=== PATIENT | male | born 1950 | race Caucasian/White ===

== ENCOUNTER 2019-06-06 23:19 | Emergency (ER) | payer MEDICARE, SELFPAY ==
--- NOTE | ~2019-06-06 | CT_ITS ---
EXAMINATION: CT brain wo con INDICATION: Headache COMPARISON: 05/08/2017 TECHNIQUE: Standard unenhanced head CT. The dose-length product (DLP) was 681.00 mGy-cm. The mA was a djusted according to patient size. Iterative reconstruction technique was employed. FINDINGS: There is no acute intraparenchymal hemorrhage. No evidence of mass lesion. No evidence of a cute infarction. There is mild periventricular and subcortical hypodensity probably related to small vessel ischemic disease. There is mild prominence of the sulci and ventricles related to cerebral atr ophy. Intracranial calcified cerebral atherosclerosis is noted. There are no extra-axial collections. There is no mass effect or midline shift. The orbits and soft tissues are unremarkable. The visuali zed sinuses and mastoid air cells are well aerated. IMPRESSION: 1. No acute intracranial abnormality. 2. Age related findings. Reviewed, dictated and finalized at location A. VERY SALES WORKER
--- NOTE | ~2019-06-06 | XR_ITS ---
EXAMINATION: XR chest 2V DATE: 06/07/2019 00:37 INDICATION: Chest pain TECHNIQUE: Frontal and lateral views of the chest are obtained COMPARISON: None available FINDINGS: The lungs are free of acute opacities. There is no pleural effusion or pneumothorax. The he art size is normal. Median sternotomy wires and mediastinal surgical clips are seen, likely from prio r coronary artery bypass grafting. A coronary artery stent is noted. There are bridging osteophytes a t multiple levels in the spine, consistent with diffuse idiopathic skeletal hyperostosis (DISH). IMPRESSION: 1. No acute cardiopulmonary abnormality. Reviewed, dictated and finalized at location A. NDLER
[2019-06-06 23:38] VITALS: BP 186/86; PULSE 65; RESP 20; TEMP 36.6; O2SAT 97
--- NOTE | 2019-06-06 23:43 | ECG_ITS ---
Measurements Intervals [place] Rate: 59 P: -17 MI: 129 QRS: -15 QRSD: 102 T: 90 QT: 425 QTc: 424 Interpretive Statements SINUS BRADYCARDIA NONSPECIFIC ST & T-WAVE ABNORMALITY- LATERAL LEADS BASELINE WANDER- I, III BORDERLINE ECG Electronically Signed On 06-07-2019 8:02:35 HARDBOARD COATING MACHINE OPERATOR by Cristian Vo D.O.
--- NOTE | 2019-06-06 23:46 | ED.GENADULT ---
HPI - General Adult General Chief complaint: Headache Stated complaint: hypertension Time Seen by Provider: 06/06/19 23:30 Source: patient History of Present Illness HPI narrative: Santo is a 68-year-old male patient. He presents ambulatory to the emergency room with his . His main complaint is that his blood pressure is high. It has been in the 170-180 range systolic and about 80-85 diastolic. He has history of hypertension. He is on amlodipine 5 mg twice a day metoprolol succinate 50 mg twice a day valsartan 160 mg p.o. daily and tamsulosin 0 point mg daily. Santo history of heart disease. In 1992 he had 7 was Flick CABG done at [facility] in [place] . Since then he has had 7 coronary stents. His risk management specialist is Dr. Spears he saw Dr. Dempsey 2 weeks ago and at that time also his blood pressure was high. He was told to keep an eye on his pressure. Santo has history of carotid disease also. He is scheduled to have CTA of the neck tomorrow at [facility] in [place]. He is chronically short of breath, this is nothing new. He has no chest pain as such. He does say that he probably pulled his left pectoral muscle while was doing some work. He has tenderness to palpation on the lateral border of the left pectoral muscle no history of cough or fever he does have a headache. At this time he rates it only at about 3. It is a dull pressure type of pain. The hypertension has been going on for 2 weeks. Duration of headache is about 2 days. He has no nausea or vomiting. He has no diplopia. He has no blurred vision. his other medications include metformin 500 mg daily, finasteride 5 mg daily, colesevelam 625 mg tablets , 1875 mg twice a day, nitroglycerin 0.4 mg sublingual p.r.n., omeprazole 40 mg capsule delayed release, daily Onset (ago): week(s) ( See HPI narrative above) Location: head Radiation: non-radiation Severity: mild Quality: other ( pressure) Pain Consistency: intermittent Exacerbating factors: other ( spontaneously better) Associated symptoms: denies other symptoms Treatments prior to arrival: none Related Data Home Medications Medication Instructions Recorded Confirmed aspirin 81 mg tablet,delayed 81 mg PO DAILY 04/01/19 06/06/19 release colesevelam 625 mg tablet 1,875 mg PO BID 04/01/19 06/06/19 finasteride 5 mg tablet 5 mg PO DAILY 04/01/19 06/06/19 metformin 500 mg tablet 500 mg PO DAILY 04/01/19 06/06/19 metoprolol succinate 50 mg capsule 50 mg PO BID each 04/01/19 06/06/19 sprinkle, ext. release 24 hr nitroglycerin 0.4 mg sublingual 0.4 mg SUBLINGUAL Q5M PRN 04/01/19 06/07/19 tablet valsartan 160 mg tablet 160 mg PO DAILY 04/01/19 06/06/19 atorvastatin 80 mg PO HS 06/06/19 06/06/19 Allergies Allergy/AdvReac Type Severity Reaction Status Date / Time No Known Allergies Allergy Verified 04/01/19 08:33 Review of Systems Review of Systems: All systems reviewed & are unremarkable except as noted in HPI and below Constitutional: Constitutional: Reports as per HPI, Denies chills and Denies fever(s) Eyes: Eyes: Reports as per HPI, Reports no additional eye complaints, Denies change in vision and Denies photophobia ENT: Reports system reviewed and no additional complaints, except as documented, Denies dysphagia, Denies vertigo, Denies dizziness, Denies epistaxis, Denies nasal congestion and Denies sore throat Cardiovascular: Cardiovascular: Reports as per HPI and Reports no additional cardiovascular complaints Respiratory: Respiratory: Reports as per HPI, Denies cough and Reports dyspnea ( this is chronic) Gastrointestinal: Gastrointestinal: Reports as per HPI, Denies abdominal pain, Denies nausea and Denies vomiting Genitourinary: Genitourinary: Reports no additional male genitourinary complaints, Denies hematuria and Denies dysuria Musculoskeletal: Musculoskeletal: Reports as per HPI and Denies back pain Integumentary/Breasts: Skin/Breast: Reports system reviewed and no additional
[2019-06-06 23:52] VITALS: BP 181/97; PULSE 62; RESP 20; O2SAT 97
[2019-06-07] MEDS: LABETALOL HCL INJ 100 MG/20 ML VIAL 20 MG IV PUSH (00:20)
[2019-06-07 00:55] LABS: Basophils Absolute Auto 0.02 K/mm3 (0.00-0.10); Basophils Percent Auto 0.3 % (0.0-1.0); Eosinophils Absolute Auto 0.08 K/mm3 (0.02-0.50); Eosinophils Percent Auto 1.1 % (1.0-6.0); Hematocrit 40.6 % (37.0-46.0); Hemoglobin 13.5 g/dL (12.4-15.3); Immature Granulocyte Absolute 0.02 K/mm3 (0.00-0.00); Immature Granulocyte Percent A 0.3 % (0.0-0.0); Lymphocytes Absolute Auto 1.48 K/mm3 (1.10-4.50); Lymphocytes Percent Auto 19.8 % (18.0-42.0); Mean Corpuscular HGB Conc 33.3 g/dL (32.0-36.0); Mean Corpuscular Hemoglobin 28.4 pg (27.0-31.0); Mean Corpuscular Volume 85.3 fL (78.0-102.0); Mean Platelet Volume 10.1 fl (8.7-11.0); Monocytes Absolute Auto 0.55 K/mm3 (0.10-0.90); Monocytes Percent Auto 7.4 % (2.0-11.0); Neutrophils Absolute Auto 5.3 K/mm3 (1.7-7.2); Neutrophils Percent Auto 71.1 % (50.0-70.0); Platelet Count Result 163 K/mm3 (150-420); Red Blood Count 4.76 M/mm3 (4.70-6.10); Red Cell Distribution Width 12.6 % (11.6-14.4); White Blood Count 7.5 K/mm3 (4.8-10.8)
[2019-06-07 01:06] LABS: Add Urine Microscopic? YES; Appearance Urine Clear (Clear); Bilirubin Urine Negative (Negative); Blood Urine 1+ (Negative); Color Urine Yellow (Yellow); Glucose Urine UA Negative (Negative); Ketones Urine Negative (Negative); Leukocyte Esterase Ur Negative LEU/UL (Negative); Nitrate Urine Negative (Negative); Protein Urine Negative (Negative); Urobilinogen Urine 0.2 mg/dL (0.2-1.0); pH Urine 6.5 (5.0-8.0)
[2019-06-07 01:07] VITALS: BP 143/53; RESP 18; O2SAT 97
[2019-06-07 01:08] LABS: INR 1.1; Partial Thromboplastin Time 25.2 SEC (22.3-31.6); Prothrombin Time 11.2 Seconds (9.64-11.0)
[2019-06-07 01:15] LABS: BNP 76.1 pg/mL (0-100)
[2019-06-07 01:16] LABS: Squamous Epithelial Cell Urine None seen /hpf (Few); WBC Urine 0-3 /hpf (0-3)
[2019-06-07 01:17] LABS: Bacteria Urine None seen /hpf
[2019-06-07 01:18] LABS: Alanine Aminotransferase 43 U/L (16-63); Alkaline Phosphatase 85 U/L (46-116); Anion Gap 12.3 mmol/L (7-16); Aspartate Amino Transferase 20 U/L (15-37); Bilirubin,Total 0.5 mg/dL (0.00-1.00); Blood Urea Nitrogen 15 mg/dL (7-18); Carbon Dioxide 30 mmol/L (21-32); Chloride 104 mmol/L (98-108); Creatine Kinase 196 U/L (39-308); Estimated CRCL calculation 70 ml/min; Estimated Glomerular Filt Rate > 60; Glucose 175 mg/dL (70-99); Magnesium 1.5 mg/dL (1.8-2.4); Osmolality Calculated 298 mOsm/kg (285-295); Potassium 4.3 mmol/L (3.5-5.1); Sodium 142 mmol/L (136-145); Total Protein 7.1 g/dL (6.4-8.2)
[2019-06-07 01:20] LABS: Troponin I < 0.02 ng/mL (0.00-0.056)
[2019-06-07 01:21] LABS: Thyroid Stimulating Hormone 2.92 uIU/mL (0.36-3.74)
[2019-06-07] MEDS: MAGNESIUM SULF 2 GM/WATER 50ML 2 GM/50 ML BAG IVPB (01:36)
[2019-06-07 02:26] VITALS: BP 143/83; PULSE 65; RESP 20; O2SAT 98
== END 2019-06-07 02:40 | disposition home or self-care (01) ==
PROVIDERS: Emergency Provider Surgery; PCP Family Medicine
DX: I10 Essential (primary) hypertension (principal); E11.9 Type 2 diabetes mellitus without complications; I25.10 Atherosclerotic heart disease of native coronary artery without angina pectoris; E66.9 Obesity, unspecified; G47.30 Sleep apnea, unspecified; R06.02 Shortness of breath; Z95.1 Presence of aortocoronary bypass graft
CPT/HCPCS: 36415; 70450; 71046; 80053; 81001; 82550; 82553; 83735; 83880; 84443; 84484; 85025; 85610; 85730; 93005; 96365; 96375; 99283; 99284; J3475

== ENCOUNTER 2019-06-14 07:27 | Outpatient (CLI) | payer MEDICARE, SELFPAY ==
[2019-06-14 07:45] LABS: Basophils Absolute Auto 0.02 K/mm3 (0.00-0.10); Basophils Percent Auto 0.2 % (0.0-1.0); Eosinophils Absolute Auto 0.09 K/mm3 (0.02-0.50); Eosinophils Percent Auto 1.1 % (1.0-6.0); Hematocrit 42.2 % (37.0-46.0); Hemoglobin 14.4 g/dL (12.4-15.3); Immature Granulocyte Absolute 0.02 K/mm3 (0.00-0.00); Immature Granulocyte Percent A 0.2 % (0.0-0.0); Lymphocytes Absolute Auto 1.43 K/mm3 (1.10-4.50); Lymphocytes Percent Auto 17.5 % (18.0-42.0); Mean Corpuscular HGB Conc 34.1 g/dL (32.0-36.0); Mean Corpuscular Volume 85.1 fL (78.0-102.0); Mean Platelet Volume 9.8 fl (8.7-11.0); Monocytes Absolute Auto 0.53 K/mm3 (0.10-0.90); Monocytes Percent Auto 6.5 % (2.0-11.0); Neutrophils Absolute Auto 6.1 K/mm3 (1.7-7.2); Neutrophils Percent Auto 74.5 % (50.0-70.0); Platelet Count Result 189 K/mm3 (150-420); Red Blood Count 4.96 M/mm3 (4.70-6.10); Red Cell Distribution Width 12.7 % (11.6-14.4); White Blood Count 8.2 K/mm3 (4.8-10.8)
[2019-06-14 07:54] LABS: Creatinine Urine 106.96 mg/dL (40-278)
[2019-06-14 07:57] LABS: Hemoglobin A1C 7.5 % (<5.7)
[2019-06-14 08:33] LABS: MALB Creatinine Ratio 30.9 mg/g (0-30); Microalbumin Urine Random 33.1 mg/L
[2019-06-14 09:09] LABS: Alanine Aminotransferase 48 U/L (16-63); Albumin Level 4.1 g/dL (3.4-5.0); Alkaline Phosphatase 88 U/L (46-116); Anion Gap 14.3 mmol/L (7-16); Aspartate Amino Transferase 21 U/L (15-37); Bilirubin,Total 0.7 mg/dL (0.00-1.00); Blood Urea Nitrogen 13 mg/dL (7-18); Calcium 9.1 mg/dL (8.5-10.1); Carbon Dioxide 30 mmol/L (21-32); Chloride 105 mmol/L (98-108); Cholesterol 117 mg/dL (0-200); Estimated Glomerular Filt Rate > 60; Glucose 171 mg/dL (70-99); HDL Direct 35 mg/dL (40-60); LDL Cholesterol Calculated 51 mg/dL (<130); Osmolality Calculated 304 mOsm/kg (285-295); Potassium 4.3 mmol/L (3.5-5.1); Sodium 145 mmol/L (136-145); Total Protein 7.2 g/dL (6.4-8.2); Triglycerides 156 mg/dL (0-150)
[2019-06-14 09:13] LABS: Thyroid Stimulating Hormone Reflex 1.86 u/IU/mL (0.36-3.74)
[2019-06-18 19:46] LABS: Hepatitis C Signal to Cutoff 0.05 ratio (<1.00); Hepatitis C Virus Antibody Nonreactive (Nonreactive)
== END 2019-06-14 07:28 | disposition home or self-care (01) ==
PROVIDERS: PCP Family Medicine; Visit Provider Family Medicine
DX: E11.9 Type 2 diabetes mellitus without complications (principal); Z11.59 Encounter for screening for other viral diseases; I10 Essential (primary) hypertension; E11.59 Type 2 diabetes mellitus with other circulatory complications
CPT/HCPCS: 36415; 80053; 80061; 82043; 83036; 84443; 85025

== ENCOUNTER 2019-06-30 18:10 | Emergency (ER) | payer MEDICARE, SELFPAY ==
[2019-06-30 19:41] VITALS: BP 181/86; PULSE 70; RESP 16; TEMP 36.6; O2SAT 98
--- NOTE | 2019-06-30 19:47 | PC.NURSE ---
Pt has 1+ pitting edema to left lower extremity after removing his rishi hoes
--- NOTE | 2019-06-30 20:13 | ECG_ITS ---
Measurements Intervals [place] Rate: 59 P: 42 LA: 180 QRS: -16 QRSD: 89 T: 70 QT: 412 QTc: 408 Interpretive Statements SINUS BRADYCARDIA NONSPECIFIC T-WAVE ABNORMALITY- LATERAL LEADS BASELINE WANDER- V5 BORDERLINE ECG Electronically Signed On 07-01-2019 7:15:59 SWIMMING POOL SERVICER by Cristian Vo D.O.
--- NOTE | 2019-06-30 20:37 | PC.NURSE ---
clonidine held due to bp of 137/76 edp aware.
[2019-06-30 20:38] LABS: Hematocrit 35.2 % (37.0-46.0); Hemoglobin 11.8 g/dL (12.4-15.3); Mean Corpuscular HGB Conc 33.5 g/dL (32.0-36.0); Mean Corpuscular Hemoglobin 28.6 pg (27.0-31.0); Mean Corpuscular Volume 85.4 fL (78.0-102.0); Mean Platelet Volume 9.3 fl (8.7-11.0); Platelet Count Result 183 K/mm3 (150-420); Red Blood Count 4.12 M/mm3 (4.70-6.10); Red Cell Distribution Width 12.3 % (11.6-14.4); White Blood Count 8.2 K/mm3 (4.8-10.8)
[2019-06-30 20:54] LABS: Anion Gap 9.5 mmol/L (7-16); Blood Urea Nitrogen 12 mg/dL (7-18); Carbon Dioxide 31 mmol/L (21-32); Chloride 106 mmol/L (98-108); Estimated CRCL calculation 75 ml/min; Estimated Glomerular Filt Rate > 60; Glucose 195 mg/dL (70-99); Osmolality Calculated 298 mOsm/kg (285-295); Potassium 4.5 mmol/L (3.5-5.1); Sodium 142 mmol/L (136-145)
[2019-06-30 20:55] LABS: Alanine Aminotransferase 37 U/L (16-63); Albumin Level 3.5 g/dL (3.4-5.0); Alkaline Phosphatase 73 U/L (46-116); Aspartate Amino Transferase 21 U/L (15-37); Bilirubin,Total 0.4 mg/dL (0.00-1.00); Calcium 8.5 mg/dL (8.5-10.1); Total Protein 6.8 g/dL (6.4-8.2)
[2019-06-30 21:09] VITALS: BP 146/74; PULSE 60
--- NOTE | 2019-06-30 21:17 | ED.GENADULT ---
HPI - General Adult General Chief complaint: Extremity Injury, Lower Stated complaint: high blood pressure, swelling in L leg Time Seen by Provider: 06/30/19 18:15 Source: patient and family History of Present Illness HPI narrative: This is a 68-year-old male that presents with some elevated blood pressure initially systolic 180, with no chest pain no shortness of breath no abdominal pain no nausea vomiting no blurry vision, no headaches no diarrhea constipation. Recently had a carotid endarterectomy on the right and has been on blood pressure medicine and had a blood pressure of systolic of 180, with some trace peripheral edema with no calf pain or tenderness no redness in his lower extremities. Onset (ago): day(s) Related Data Home Medications Medication Instructions Recorded Confirmed aspirin 81 mg tablet,delayed 81 mg PO DAILY 04/01/19 06/10/19 release colesevelam 625 mg tablet 1,875 mg PO BID 04/01/19 06/10/19 finasteride 5 mg tablet 5 mg PO DAILY 04/01/19 06/10/19 nitroglycerin 0.4 mg sublingual 0.4 mg SUBLINGUAL Q5M PRN 04/01/19 06/10/19 tablet valsartan 160 mg tablet 160 mg PO DAILY 04/01/19 06/10/19 atorvastatin 80 mg PO HS 06/06/19 06/10/19 meloxicam 15 mg tablet 15 mg PO DAILY 06/10/19 06/10/19 Allergies Allergy/AdvReac Type Severity Reaction Status Date / Time No Known Allergies Allergy Verified 06/10/19 14:50 Review of Systems Review of Systems: All systems reviewed & are unremarkable except as noted in HPI and below PMFSH Past Medical History Medical History BPH (benign prostatic hyperplasia) CAD (coronary artery disease) Coronary artery disease involving coronary bypass graft of [place] heart Hypertension associated with diabetes Obesity Sleep apnea Type 2 diabetes mellitus, without long-term current use of insulin Surgical History Surgical History History of heart artery stent History of lumbar laminectomy Hx of coronary artery bypass graft Status post trigger finger release (~2017) Family History Family History Mother , mother at age 58 of [place] No problems noted. Father , father of coronary artery disease at age 55 No problems noted. Other Family history of coronary artery disease Social History Social History Smoking status: Never smoker Substance use: never Exam Const: General: no acute distress Nutritional Appearance: well nourished Orientation/consciousness: patient oriented x3 HENMT: Head: normal to inspection Eyes: Conjunctivae: conjunctivae normal Pupils: Equal, round and reactive pupils present Neck: Neck: normal visual inspection Chest: Chest palpation & inspection: normal inspection of the chest Resp: Effort & Inspection: normal respiratory effort Cardio: Rate: regular rate Rhythm: regular rhythm GI: GI Palp: Yes Soft to palpation : Testes: Testes normal Skin: General skin exam: normal color Rashes: no rashes Neuro: General: patient oriented x3, moves all extremities and no meningeal signs Extrem: General: normal to inspection and edema Other: Trace edema bilateral lower extremities Psych: Mental Status: mental status grossly normal Course REGISTERED NURSE TEACHER/PA Physician Supervision repeat blood pressure was 146 over 80, Vital Signs Vital signs: Vital Signs Temperature 36.6 C 06/30/19 19:41 Pulse Rate 70 06/30/19 19:41 Respiratory Rate 16 06/30/19 19:41 Blood Pressure 181/86 H 06/30/19 19:41 Pulse Oximetry 98 06/30/19 19:41 Temperature 36.6 C 06/30/19 19:41 Pulse Rate 60 06/30/19 21:09 Respiratory Rate 16 06/30/19 19:41 Blood Pressure 146/74 H 06/30/19 21:09 Pulse Oximetry 98 06/30/19 19:41 Medical Decision Making Vital Signs Vital Signs:
[2019-06-30 21:30] VITALS: RESP 16
== END 2019-06-30 21:30 | disposition home or self-care (01) ==
PROVIDERS: Emergency Provider Emergency Medicine; PCP Family Medicine
DX: I10 Essential (primary) hypertension (principal); Z95.1 Presence of aortocoronary bypass graft; I25.10 Atherosclerotic heart disease of native coronary artery without angina pectoris; E11.9 Type 2 diabetes mellitus without complications; G47.30 Sleep apnea, unspecified
CPT/HCPCS: 36415; 80053; 85027; 93005; 99282; 99283

== ENCOUNTER 2019-07-15 14:19 | Emergency (ER) | payer MEDICARE, SELFPAY ==
--- NOTE | ~2019-07-15 | CT_ITS ---
EXAMINATION: CT soft tissue neck wo con EXAM DATE: 07/15/2019 15:10 INDICATION: Trouble swallowing. Dysphagia since carotid surgery 3 weeks ago, worsening symptoms in la st 3 days. Prostate cancer. TECHNIQUE: Spiral CT of the neck was performed without contrast. Axial, coronal and sagittal images were reviewed. The dose-length product (DLP) for this examination was 638.12 mGy-cm. The exposure was tailored according to patient size (auto mA exposure control), and iterative reconstruction (ASIR ) was used as additional dose reduction technique. There is no prior study for comparison. FINDINGS: There are surgical changes, some fat stranding from relatively recent right-sided endartere ctomy, within expected appearance for history as above. Mildly enlarged right thyroid lobe, may have several nodules. Prevertebral soft tissue is normal in thickness, no focal abscess or fluid collectio n. Epiglottis and glottis are unremarkable. The submandibular and parotid glands are symmetric. Th ere is no cervical lymphadenopathy. There are no masses identified. The superior mediastinum is u nremarkable. The airway is unremarkable. Parapharyngeal and pre-glottic fat planes are preserved. Limited evaluation of cervical vessels on this noncontrast study. Visualized sinuses and mastoid air cells are well aerated. Sternotomy wires. There is cervical spondylosis. IMPRESSION: 1. Surgical changes from endarterectomy. 2. Mildly enlarged right thyroid lobe with nodules. Reviewed, dictated and finalized at location A. NICAL ENGINEER
[2019-07-15 14:33] VITALS: BP 153/77; PULSE 75; RESP 14; TEMP 37; O2SAT 98
--- NOTE | 2019-07-15 15:30 | ED.GENADULT ---
HPI - General Adult General Chief complaint: Unspecified Stated complaint: having trouble swollowing Source: patient Mode of arrival: ambulatory Limitations: no limitations History of Present Illness HPI narrative: This is a 68-year-old male that presents with difficulty swallowing pills recently had a endarterectomy approximately 3 weeks ago with status post surgical evaluation by his vascular doctor and had been doing very well. According to patient over last 4 days has been having increased swallowing difficulties with pills called his vascular surgeon which prompted him to come to the emergency department for further evaluation. Currently the patient appears stable with no difficulty breathing has a good swallow mechanism although he feels things are getting stuck in his throat is specially pills. There is no audible wheezing carotids auscultated and good pounding carotid pulses. Others no neck pain there is no neck stiffness has good range of motion and with no hematomas are neck masses visualized are auscultated or palpated. Onset (ago): day(s) Location: head and mouth Radiation: non-radiation Severity: mild Related Data Home Medications Medication Instructions Recorded Confirmed aspirin 81 mg tablet,delayed 81 mg PO DAILY 04/01/19 07/15/19 release colesevelam 625 mg tablet 1,875 mg PO BID 04/01/19 07/15/19 finasteride 5 mg tablet 5 mg PO DAILY 04/01/19 07/15/19 nitroglycerin 0.4 mg sublingual 0.4 mg SUBLINGUAL Q5M PRN 04/01/19 07/15/19 tablet valsartan 160 mg tablet 160 mg PO DAILY 04/01/19 07/15/19 atorvastatin 80 mg PO HS 06/06/19 07/15/19 clonidine HCl 0.1 mg PO BID 06/30/19 07/15/19 metformin 500 mg PO BID 06/30/19 07/15/19 psyllium husk [Metamucil] 2 tsp PO DAILY 06/30/19 07/15/19 Allergies Allergy/AdvReac Type Severity Reaction Status Date / Time No Known Allergies Allergy Verified 07/15/19 10:03 Review of Systems Review of Systems: All systems reviewed & are unremarkable except as noted in HPI and below PMFSH Past Medical History Medical History BPH (benign prostatic hyperplasia) CAD (coronary artery disease) Coronary artery disease involving coronary bypass graft of [place] heart Hypertension associated with diabetes Obesity Sleep apnea Type 2 diabetes mellitus, without long-term current use of insulin Surgical History Surgical History History of heart artery stent History of lumbar laminectomy Hx of coronary artery bypass graft Status post trigger finger release (~2018) Family History Family History Mother , mother at age 58 of [place] No problems noted. Father , father of coronary artery disease at age 55 No problems noted. Other Family history of coronary artery disease Social History Social History Smoking status: Never smoker Substance use: never Exam Const: General: no acute distress and alert HENMT: Head: normal to inspection Eyes: Conjunctivae: conjunctivae normal Pupils: Equal, round and reactive pupils present Neck: Neck: normal visual inspection, no lymphadenopathy and no meningeal signs Chest: Chest palpation & inspection: normal inspection of the chest and abnormal inspection of the chest Resp: Effort & Inspection: normal respiratory effort Auscultation: clear to auscultation bilaterally Cardio: Rate: regular rate Rhythm: regular rhythm GI: GI Palp: Yes Soft to palpation : Testes: Testes normal Back/Spine/Pelvis: Back: no CVA tenderness Skin: General skin exam: normal color Rashes: no rashes Neuro: General: patient oriented x3, moves all extremities and no meningeal signs Speech: normal speech Extrem: General: normal to inspection Psych: Mental Status: mental status grossly no
[2019-07-15 15:35] VITALS: RESP 15; O2SAT 98
== END 2019-07-15 15:40 | disposition home or self-care (01) ==
PROVIDERS: Emergency Provider Emergency Medicine; PCP Family Medicine
DX: R13.10 Dysphagia, unspecified (principal); I25.10 Atherosclerotic heart disease of native coronary artery without angina pectoris; I10 Essential (primary) hypertension; E11.9 Type 2 diabetes mellitus without complications; G47.30 Sleep apnea, unspecified
CPT/HCPCS: 70490; 99282; 99284

== ENCOUNTER 2019-07-18 14:35 | Outpatient (CLI) | payer MEDICARE, SELFPAY ==
[2019-07-18 17:24] LABS: Thyroid Stimulating Hormone 0.68 uIU/mL (0.36-3.74)
== END 2019-07-18 14:36 | disposition home or self-care (01) ==
LOC: CHSLAB 14:36
PROVIDERS: PCP Family Medicine; Visit Provider Nurse Practitioner Family
DX: E04.1 Nontoxic single thyroid nodule (principal)
CPT/HCPCS: 36415; 84443

== ENCOUNTER 2019-07-20 10:00 | Outpatient (CLI) | payer MEDICARE, SELFPAY ==
--- NOTE | ~2019-07-20 | US_ITS ---
EXAMINATION: US thyroid DATE: 07/20/2019 12:07 INDICATION: Nontoxic single thyroid nodule. TECHNIQUE: Multiple ultrasound images of the thyroid were obtained. COMPARISON: Neck CT 07/15/2019 FINDINGS: The right thyroid lobe measures 6.2 x 2.0 x 2.9 cm. The left thyroid lobe measures 5.7 x 1.6 x 2.3 c m. There are multiple nodules in the thyroid. In the right thyroid lobe, there is a 15 mm solid, hyp oechoic, ezmqu-xapt-ixeg nodule with lobulated margin without echogenic foci (TR4). In the right thyr oid lobe, there is a 17 mm solid, hyperechoic, usnfte-qour-ashw nodule with ill-defined margin withou t echogenic foci (TR4). In the right thyroid lobe, there is a 14 mm solid, hypoechoic, rfpql-uhbt-jsi l nodule with smooth margin without echogenic foci (TR4). In the left thyroid lobe, there is a 2.4 cm solid, hypoechoic, zmmlh-catl-zbkh nodule with ill-defined margin without echogenic foci (TR4). IMPRESSION: 1. Multinodular goiter. Ultrasound-guided fine-needle aspiration of the 2 largest nodules is recommen ded. Reviewed, dictated and finalized at location A. IMPRESSION: 1. Multinodular goiter. Ultrasound-guided fine-needle aspiration of the [address] nodules is recommended.
== END 2019-07-20 10:01 | disposition home or self-care (01) ==
LOC: CHSIMG 10:01
PROVIDERS: PCP Family Medicine; Visit Provider Nurse Practitioner Family
DX: E04.1 Nontoxic single thyroid nodule (principal)
CPT/HCPCS: 76536

== ENCOUNTER 2019-07-25 09:34 | Outpatient (CLI) | payer MEDICARE, SELFPAY ==
--- NOTE | ~2019-07-25 | XR_ITS ---
EXAMINATION: XR barium swallow modified EXAM DATE: 07/25/2019 10:24 INDICATION: Dysphagia. TECHNIQUE: Modified barium esophagram was performed by myself to administered fluoroscopy, in conjun ction with speech pathologist who administered barium in varying consistencies as per speech patholog ist documentation. This was recorded on tape. The DAP for this procedure was 1.5 Gycm2. FINDINGS: Oral stage: Adequate function. Pharyngeal phase: Sinus residual, bone osteophytes. Laryngeal penetration: Large. Aspiration: Copious. Laryngeal sensitivity: Present. IMPRESSION: Aspiration demonstrated; Please refer to speech pathologist findings and specific feedi ng recommendations. Reviewed, dictated and finalized at location A. IMPRESSION: Aspiration demonstrated; Please refer to speech pathologist findi ngs and specific feeding recommendations.
--- NOTE | 2019-07-26 10:02 | STOPEVAL ---
MODIFIED BARIUM SWALLOW EVALUATION: Thank you for referring this patient to [facility]. Attending Provider: Cabrera Aguilar MD Referring Provider: JARRELL Outpatient Evaluation Start: 07/26/19 09:11 Freq: Status: Active Protocol: Document 07/25/19 09:30 BECHERERT (Rec: 07/26/19 10:02 BECHERERT [email or web address]) Therapy Assessment Status Assessment Status Assessment Status Evaluation Outpatient Past Medical History Cardiovascular History Hx Angina Yes Hx Cardiac Catheterization Yes Hx Cardiac Surgery Yes Hx Chest Pain Yes Hx Coronary Artery Bypass Graft Yes Hx Coronary Stent Yes Hx Hypercholesterolemia Yes Hx Hypertension Yes Hx Other Cardiac Disorders Yes: right carotid artery surgery w/ complications Gastrointestinal History Hx Gastroesophageal Reflux Disease Yes Endocrine History Hx Diabetes Yes Evaluation Information Problem Diagnosis dysphagia Onset after carotid endartectomy Additional Evaluation Detail Pt stated that he was informed that there were complications during his endarterectomy surgery. Previous Treatments Previous Treatments For This Problem pt briefly mentioned that he had thickened water at the hospital after sx Pain Assessment Timing of Pain Assessment Timing of Pain Assessment Assessment Self Report Self Report Pain Level 0 Pain Scale Pain Scale Used Numeric (1 - 10) Pain Score Pain Score 0: Self Report Modified Barium Swallow Evaluation Recent Swallowing History Reports Dysphagia Yes Onset of Dysphagia started after carotid endartectomy History of Dysphagia No Other Factors Impacting Dysphagia Head/Neck Surgery History of Pneumonia No Reported Difficult Consistencies Thin Liquids,Solids Intake Method Prior to Swallow Oral Evaluation Diet Prior to Swallow Evaluation Clear Liquids Liquid Consistency Prior to Swallow Thin (0) Evaluation Consistency Mildly Thick 5 mL Method of Presentation Spoon Oral Preparatory Symptoms None Oral Phase Symptoms None Pharyngeal Phase Symptoms Bony Protuberance,Laryngeal Penetration,Reduced Laryngeal Elevation,Reduced Lingual Pressure,Residue in [place] ,Residue/Pyriform Sinus Pharyngeal Phase Comments Material entered airway and
== END 2019-07-25 09:35 | disposition home or self-care (01) ==
PROVIDERS: PCP Family Medicine; Visit Provider Otolaryngology
DX: R13.10 Dysphagia, unspecified (principal)
CPT/HCPCS: 92611

== ENCOUNTER 2019-07-26 11:07 | Emergency (ER) | payer MEDICARE, SELFPAY ==
--- NOTE | ~2019-07-26 | XR_ITS ---
EXAMINATION: XR chest 2V DATE: 07/26/2019 11:57 INDICATION: 5 weeks of dysphagia. TECHNIQUE: frontal and lateral views of the chest were obtained. COMPARISON: Chest radiograph dated 06/07/2019 FINDINGS: The lungs remain clear with no focal airspace opacities, pulmonary edema, pleural effusion or pneumot horax. The cardiomediastinal silhouette is normal. Median sternotomy wires and mediastinal surgical c lips are seen, likely from prior coronary artery bypass grafting. Right coronary artery stenting. The re are bridging osteophytes at multiple levels in the spine, consistent with diffuse idiopathic skele ashley hyperostosis (DISH). IMPRESSION: 1. No acute cardiopulmonary disease. Reviewed, dictated and finalized at location A.
--- NOTE | ~2019-07-26 | CT_ITS ---
EXAMINATION: CTA chest PE protocol DATE: 07/26/2019 13:09 INDICATION: Dyspnea. Positive d-dimer. Carotid surgery 5 weeks ago. TECHNIQUE: Computed tomography angiography (CTA) of the chest was performed with 100 mL Omnipaque-350 intravenous contrast timed to evaluate the pulmonary arteries. Coronal maximum intensity projection 3D-reconstructions were created by the technologist. Automated exposure control and iterative reconst ruction technique were employed. Exam dose: 657.77 mGy-cm total exam DLP. COMPARISON: 07/25/2021 view chest FINDINGS: The examination is diagnostically satisfactory with very good opacification of the pulmonar y arteries, with demonstration of bilateral saddle pulmonary emboli, with emboli extending into the u pper, middle and lower lobes bilaterally. No thoracic aortic aneurysm or dissection. Normal heart size. Status post sternotomy/probable coronary artery bypass graft surgery. No pericardial or pleural effusion. Hypoattenuating lesions of the thyroid gland are suggested, primarily on the right. No hilar or mediastinal mass lesion or lymphadenopathy is detected. Calcified left lower lobe pulmona ry granuloma consistent with old pulmonary granulomatous disease. No pulmonary infiltrate or consolid ation Small sliding hiatal hernia. Normal morphology of the adrenal glands. Calcified splenic granulomas consistent with old granulomato us disease. Suggestion of one or more pinpoint small dependent gallstones. No gallbladder wall thickening or gayla cholecystic stranding or fluid. No bile duct or pancreatic duct dilatation. No pancreatic mass lesion or calcification is evident. Diffuse idiopathic skeletal hyperostosis of cervical, thoracic and lumbar spine. IMPRESSION: Bilateral pulmonary saddle emboli Dr. Melara telephoned the report and bilateral saddle emboli on 07/26/2019 At 1314 hours to [facility] Emergency Room Physician Dr. Yeh. Reviewed, dictated and finalized at Location A. Reviewed, dictated and finalized at location B. IMPRESSION: Bilateral pulmonary saddle emboli Dr. Melara telephoned the report and bilateral saddle emboli on 07/26/2019 At 1314 hours to [facility] Emergency Room Physician Dr. Yeh.
--- NOTE | 2019-07-26 11:29 | ECG_ITS ---
Measurements Intervals [place] Rate: 67 P: 70 VA: 162 QRS: 22 QRSD: 93 T: 76 QT: 419 QTc: 444 Interpretive Statements SINUS RHYTHM WITH SINUS ARRHYTHMIA ATRIAL PREMATURE COMPLEX DELAYED PRECORDIAL R/S TRANSITION BORDERLINE ECG Electronically Signed On 07-26-2019 12:05:11 CDT by Cristian Vo D.O.
[2019-07-26 11:32] VITALS: BP 163/80; PULSE 76; RESP 17; TEMP 36.7; O2SAT 98
[2019-07-26 11:59] LABS: Basophils Absolute Auto 0.01 K/mm3 (0.00-0.10); Basophils Percent Auto 0.1 % (0.0-1.0); Eosinophils Absolute Auto 0.01 K/mm3 (0.02-0.50); Eosinophils Percent Auto 0.1 % (1.0-6.0); Hematocrit 40.3 % (37.0-46.0); Hemoglobin 13.5 g/dL (12.4-15.3); Immature Granulocyte Absolute 0.02 K/mm3 (0.00-0.00); Immature Granulocyte Percent A 0.3 % (0.0-0.0); Lymphocytes Absolute Auto 0.64 K/mm3 (1.10-4.50); Lymphocytes Percent Auto 8.7 % (18.0-42.0); Mean Corpuscular HGB Conc 33.5 g/dL (32.0-36.0); Mean Corpuscular Hemoglobin 28.4 pg (27.0-31.0); Mean Corpuscular Volume 84.8 fL (78.0-102.0); Mean Platelet Volume 10.1 fl (8.7-11.0); Monocytes Absolute Auto 0.58 K/mm3 (0.10-0.90); Monocytes Percent Auto 7.9 % (2.0-11.0); Neutrophils Absolute Auto 6.1 K/mm3 (1.7-7.2); Neutrophils Percent Auto 82.9 % (50.0-70.0); Platelet Count Result 161 K/mm3 (150-420); Red Blood Count 4.75 M/mm3 (4.70-6.10); Red Cell Distribution Width 13.2 % (11.6-14.4); White Blood Count 7.4 K/mm3 (4.8-10.8)
[2019-07-26 12:09] LABS: Alanine Aminotransferase 31 U/L (16-63); Albumin Level 3.8 g/dL (3.4-5.0); Alkaline Phosphatase 95 U/L (46-116); Anion Gap 11.3 mmol/L (7-16); Aspartate Amino Transferase 15 U/L (15-37); Bilirubin,Total 0.8 mg/dL (0.00-1.00); Blood Urea Nitrogen 8 mg/dL (7-18); Calcium 8.7 mg/dL (8.5-10.1); Carbon Dioxide 29 mmol/L (21-32); Chloride 104 mmol/L (98-108); Estimated Glomerular Filt Rate > 60; Glucose 172 mg/dL (70-99); Lactic Acid 1.9 mmol/L (0.4-2.0); Osmolality Calculated 294 mOsm/kg (285-295); Potassium 3.3 mmol/L (3.5-5.1); Sodium 141 mmol/L (136-145); Total Protein 6.8 g/dL (6.4-8.2); Troponin I < 0.02 ng/mL (0.00-0.056)
[2019-07-26 12:10] LABS: CRP 0.3 mg/dL (0.0-0.9)
[2019-07-26 12:12] LABS: BNP 84.5 pg/mL (0-100)
[2019-07-26 12:23] LABS: INR 1.1; Partial Thromboplastin Time 24.5 SEC (22.3-31.6); Prothrombin Time 11.8 Seconds (9.64-11.0)
[2019-07-26 12:26] LABS: D Dimer 10.73 mg/L (0.19-0.50)
[2019-07-26 12:50] VITALS: BP 135/74; PULSE 64; O2SAT 99
--- NOTE | 2019-07-26 12:56 | ED.SOB ---
HPI - SOB/Dyspnea General Chief Complaint: Upper Respiratory Infection Stated Complaint: Trouble breathing Time Seen by Provider: 07/26/19 11:15 Source: patient and family Mode of arrival: ambulatory Limitations: no limitations History of Present Illness HPI Narrative: 68-year-old man comes in today complaining of several days of shortness of breath is progressively getting worse. He states that he has recently been having difficulty swallowing foods, liquids and medications, all of which trigger cough, problem which she has had more or less since had right carotid surgery 1 month ago. He denies fever, nausea, vomiting, cold symptoms, chest pain, hemoptysis. He has no personal or family history of venous thrombosis. a barium swallow done yesterday showed a large amount of pharyngeal penetration and copious aspiration. MD elicited complaint: shortness of breath Onset (ago): day(s) (3) Context: choking/aspiration Timing: constant Severity: moderate Exacerbating factors: nothing Relieving factors: nothing Treatment prior to arrival: none Related Data Home oxygen amount: none Home Medications Medication Instructions Recorded Confirmed aspirin 81 mg tablet,delayed 81 mg PO DAILY 04/01/19 07/26/19 release finasteride 5 mg tablet 5 mg PO DAILY 04/01/19 07/26/19 nitroglycerin 0.4 mg sublingual 0.4 mg SUBLINGUAL Q5M PRN 04/01/19 07/26/19 tablet valsartan 160 mg tablet 160 mg PO DAILY 04/01/19 07/26/19 atorvastatin 80 mg PO HS 06/06/19 07/26/19 metformin 500 mg PO BID 06/30/19 07/26/19 psyllium husk [Metamucil] 2 tsp PO DAILY 06/30/19 07/26/19 clonidine HCl 0.1 mg tablet 0.1 mg PO DAILY tablet 07/21/19 07/26/19 colesevelam 625 mg tablet 1,875 mg PO BID 07/21/19 07/26/19 Allergies Allergy/AdvReac Type Severity Reaction Status Date / Time No Known Allergies Allergy Verified 07/18/19 13:48 Review of Systems Constitutional: Constitutional: Denies chills, Denies fever(s) and Denies weakness Eyes: Eyes: Denies change in vision and Denies photophobia ENT: Reports as per HPI, Denies dysphagia, Denies nasal congestion and Denies sore throat Cardiovascular: Cardiovascular: Denies chest pain and Denies radiating jaw, neck or arm pain Respiratory: Respiratory: Reports as per HPI, Reports cough (after ingestion) and Reports dyspnea Gastrointestinal: Gastrointestinal: Denies abdominal pain, Denies nausea and Denies vomiting Genitourinary: Genitourinary: Denies hematuria, Denies dysuria and Denies urinary frequency Musculoskeletal: Musculoskeletal: Denies arthralgias, Denies joint swelling and Denies muscle cramps Integumentary/Breasts: Skin/Breast: Denies pruritus, Denies erythema and Denies rash Neurologic: Denies vertigo, Denies dizziness and Denies syncope Psychiatric: Psychiatric: Denies anxiety and Denies depression Endocrine: Endocrine: Denies polydipsia and Denies polyuria Hematologic/Lymphatic: Hematologic/Lymphatic: Denies easy bleeding and Denies easy bruising Allergic/Immunologic: Allergic/Immunologic: Denies lip swelling and Denies wheezing PMFSH Past Medical History Medical History (Updated 07/26/19 @ 15:25 by Justin Yeh MD) BPH (benign prostatic hyperplasia) CAD (coronary artery disease) Coronary artery disease involving coronary bypass graft of [place] heart Hypertension associated with diabetes Obesity Sleep apnea Type 2 diabetes mellitus, without long-term current use of insulin Surgical History Surgical History (Updated 07/21/19 @ 10:58 by Mariel Dubois [facility]) H/O carotid endarterectomy 06/2019 History of heart artery stent 1 stent: 03/2005 1 stent: 02/2008 3 stents: 02/2009 1 stent: 12/2013 1 stent: 09/2014 History of lumbar laminectomy 03/2016 Hx of coronary artery bypass graft Status post trigger finger release (~2017) Social History Social History (Updated 07/18/19 @ 13:51 by Betty Ma MA) Smoking status: Never smoker Alcohol intake: never Substa
--- NOTE | 2019-07-26 13:19 | PC.NURSE ---
CALL PLACED TO [facility] FOR DR STACY LARA
--- NOTE | 2019-07-26 13:56 | PC.NURSE ---
DR LARA CALLS BACK AND STATES PATIENT HAS BEEN DISCHARGED FROM THEIR SERVICE. CALL PLACED TO [facility] FOR [facility]OSPITALIST ADMISSION
[2019-07-26 13:59] VITALS: BP 159/73; PULSE 69; O2SAT 97
[2019-07-26] MEDS: SODIUM CHLORIDE 0.9% IV 500 ML 999 ML IV CONT (14:44)
[2019-07-26] MEDS: HEPARIN SODIUM 5,000 UNITS/ML VIAL 6800 UNITS IV PUSH (15:20)
[2019-07-26] MEDS: HEPARIN SOD/D5W 100 UNITS/ML 25,000 UNITS/250 ML BAG 15 UNITS (15:21)
--- NOTE | 2019-07-26 15:22 | PC.NURSE ---
HEPARIN INFUSION - DOSE VERIFIED WITH DR LION - 6,800 UNITS BOLUS, 1,500 UNITS PER HOUR UNABLE TO SCAN APPROPRIATE DOSE IN JUL. PT IS AGREEABLE WITH TREATMENT PLAN, AWAITING ROOM ASSIGNMENT AT [facility]
--- NOTE | 2019-07-26 15:35 | PC.NURSE ---
DEXTROSE 5/0.45 NS STARTED AND INFUSING 120 ML/HR RIGHT AC- UNABLE TO SCAN AND DOCUMENT IN MAR.
[2019-07-26 15:39] VITALS: BP 154/76; PULSE 64; O2SAT 98
[2019-07-26 15:47] VITALS: PULSE 68; O2SAT 99
[2019-07-26 16:45] VITALS: BP 153/80; O2SAT 99
== END 2019-07-26 16:45 | disposition short-term general hospital (02) ==
PROVIDERS: Emergency Provider Emergency Medicine; PCP Family Medicine
DX: R10.13 Epigastric pain (principal); I26.92 Saddle embolus of pulmonary artery without acute cor pulmonale; I25.10 Atherosclerotic heart disease of native coronary artery without angina pectoris; I10 Essential (primary) hypertension; E11.9 Type 2 diabetes mellitus without complications
CPT/HCPCS: 36415; 71046; 71275; 80053; 83605; 83880; 84484; 85025; 85380; 85610; 85730; 86140; 87040; 93005; 96361; 96365; 99285; J1644; J7040; Q9965

== ENCOUNTER 2019-10-10 08:25 | Outpatient (RCR) | payer MEDICARE, SELFPAY ==
--- NOTE | 2019-10-10 09:50 | STOPEVAL ---
OUTPTIENT Darenk you for referring Santo Miller to [facility]. Please review, sign, date and return this plan of care GELA. I agree with and certify that the following plan of care is medically necessary. Referring Physician Date Admitting Provider: Attending Provider: Giuseppe Kulkarni MD Referring Provider: JARRELL Outpatient Evaluation Start: 10/10/19 08:31 Freq: Status: Active Protocol: Document 10/10/19 08:56 BECHERERT (Rec: 10/10/19 09:42 BECHERERT [id number]) Therapy Assessment Status Assessment Status Assessment Status Evaluation Outpatient Past Medical History Past Medical History Source of Past Medical History Patient Neurological History Hx Neurological Disorders No Significant History Cardiovascular History Hx Angina Yes Hx Cardiac Catheterization Yes Hx Cardiac Surgery Yes Hx Chest Pain Yes Hx Coronary Artery Bypass Graft Yes: 1992; stents put in since then Hx Coronary Artery Disease Yes Hx Coronary Stent Yes Hx Hypercholesterolemia Yes Hx Hypertension Yes Hx Vascular Surgery Yes: CAROTID SURGERY 06/2019 Respiratory History Hx Sleep Apnea Yes: uses CPAP Gastrointestinal History Hx Gastroesophageal Reflux Disease Yes Musculoskeletal History Hx Arthritis Yes Hx Other Musculoskeletal Disorders Yes: BACK SURGERY Hematological History Hx Hematological Disorders No Significant History Endocrine History Hx Diabetes Yes HEENT History Hx HEENT Disorders No Significant History Integumentary History Hx Skin Disorders No Significant History Other History Hx Cancer Yes: PROSTATE Evaluation Information Diagnostic Tests Other Tests For This Problem Yes: multiple MBS Previous Treatments Previous Treatments For This Problem speech therapy Pain Assessment Timing of Pain Assessment Timing of Pain Assessment Assessment Self Report Self Report Pain Level 0 Pain Scale Pain Scale Used Numeric (1 - 10) Pain Score Pain Score 0: Self Report Bedside Swallow Evaluation General Reports Dysphagia Yes Onset of Dysphagia 2019 Duration of Dysphagia 3-4 months Related History compklications re carotid endarterectomy Reported Difficult Consistencies Solids Swallowing Worsening Rapidly Meal Observed Bedside Swallows History of Dysphagia No: not before 06/2019 Other Factors Impacting Dysphagia Head/Neck Surgery History of Pneumonia No Intake Method Prior to Swallow Oral,Gastrostomy Evaluat
--- NOTE | 2019-10-10 09:51 | STOPEVAL ---
OUTPATIENT SPEECH THERAPY INITITAL EVALUATION: Thank you for referring Santo Miller to [facility]. ST is recommended 2-3x week for 4 weeks. Please review, sign, date and return this plan of care GELA. I agree with and certify that the following plan of care is medically necessary. Referring Physician Date Attending Provider: Giuseppe Kulkarni MD Referring Provider: JARRELL Outpatient Evaluation Start: 10/10/19 08:31 Freq: Status: Active Protocol: Document 10/10/19 08:56 BECHERERT (Rec: 10/10/19 09:42 BECHERERT [id number]) Therapy Assessment Status Assessment Status Assessment Status Evaluation Outpatient Past Medical History Past Medical History Source of Past Medical History Patient Neurological History Hx Neurological Disorders No Significant History Cardiovascular History Hx Angina Yes Hx Cardiac Catheterization Yes Hx Cardiac Surgery Yes Hx Chest Pain Yes Hx Coronary Artery Bypass Graft Yes: 1992; stents put in since then Hx Coronary Artery Disease Yes Hx Coronary Stent Yes Hx Hypercholesterolemia Yes Hx Hypertension Yes Hx Vascular Surgery Yes: CAROTID SURGERY 06/2019 Respiratory History Hx Sleep Apnea Yes: uses CPAP Gastrointestinal History Hx Gastroesophageal Reflux Disease Yes Musculoskeletal History Hx Arthritis Yes Hx Other Musculoskeletal Disorders Yes: BACK SURGERY Hematological History Hx Hematological Disorders No Significant History Endocrine History Hx Diabetes Yes HEENT History Hx HEENT Disorders No Significant History Integumentary History Hx Skin Disorders No Significant History Other History Hx Cancer Yes: PROSTATE Evaluation Information Diagnostic Tests Other Tests For This Problem Yes: multiple MBS Previous Treatments Previous Treatments For This Problem HH speech therapy Pain Assessment Timing of Pain Assessment Timing of Pain Assessment Assessment Self Report Self Report Pain Level 0 Pain Scale Pain Scale Used Numeric (1 - 10) Pain Score Pain Score 0: Self Report Bedside Swallow Evaluation General Reports Dysphagia Yes Onset of Dysphagia 2019 Duration of Dysphagia 3-4 months Related History compklications re carotid endarterectomy Reported Difficult Consistencies Solids Swallowing Worsening Rapidly Meal Observed Bedside Swallows History of Dysphagia No: not before 06/2019 Other Factors Impacting Dysphagia Head/Neck Surgery History of Pneumonia No Intake Method Prior t
--- NOTE | 2019-11-10 13:49 | STOPEVAL ---
Speech Therapy Progress Report: Thank you for referring Santo Miller to [facility]. Pt has completed 12 outpatient speech therapy treatments for dysphagia that included neuromuscular electrical stimulation with exercises. MBS has been completed which revealed improvement albeit minimal. It is recommended that pt continue skilled ST to provide further education as well as treatment. Please review, sign, date and return this plan of care GELA. I agree with and certify that the following plan of care is medically necessary. Referring Physician Date Attending Provider: Giuseppe Kulkarni MD *ST Outpatient Evaluation/Progress Report Start: 10/10/19 08:31 Freq: Status: Active Protocol: Document 11/09/19 13:00 [email or web address] (Rec: 11/10/19 13:49 BECHERERT [id number]) Therapy Assessment Status Assessment Status Assessment Status Re-evaluation Outpatient Past Medical History Past Medical History Source of Past Medical History Patient Neurological History Hx Neurological Disorders No Significant History Cardiovascular History Hx Angina Yes Hx Cardiac Catheterization Yes Hx Cardiac Surgery Yes Hx Chest Pain Yes Hx Coronary Artery Bypass Graft Yes: 1992; stents put in since then Hx Coronary Artery Disease Yes Hx Coronary Stent Yes Hx Hypercholesterolemia Yes Hx Hypertension Yes Hx Vascular Surgery Yes: CAROTID SURGERY 06/2019 Respiratory History Hx Sleep Apnea Yes: uses CPAP Gastrointestinal History Hx Gastroesophageal Reflux Disease Yes Musculoskeletal History Hx Arthritis Yes Hx Other Musculoskeletal Disorders Yes: BACK SURGERY Hematological History Hx Hematological Disorders No Significant History Endocrine History Hx Diabetes Yes HEENT History Hx HEENT Disorders No Significant History Integumentary History Hx Skin Disorders No Significant History Other History Hx Cancer Yes: PROSTATE Pain Assessment Timing of Pain Assessment Timing of Pain Assessment Assessment Self Report Self Report Pain Level 0 Pain Score Pain Score 0: Self Report ST Clinical Summary Clinical Summary ST Clinical Summary MBS was repeated on this date for re-evaluation purposes with the following results: Overall, pt continues to present with dysphagia. Severity has slightly improved in that decreased pharyngeal residual is exhibited,improved ability to tolerate thin liquids (with use of
--- NOTE | 2019-12-02 14:01 | STOPEVAL ---
SPEECH THERAPY DISCHARGE: Thank you for referring Santo Miller to [facility]. Please review, sign, date and return this discharge summary GELA. I agree with and certify that the following plan of care is medically necessary. Referring Physician Date Attending Provider: Giuseppe Kulkarni MD * Outpatient DISCHARGE Start: 10/10/19 08:31 Freq: Status: Active Protocol: Document 12/02/19 13:46 BECHERERT (Rec: 12/02/19 14:01 BECHERERT [id number]) Therapy Assessment Status Assessment Status Assessment Status Discharge Outpatient Past Medical History Past Medical History Source of Past Medical History Patient Neurological History Hx Neurological Disorders No Significant History Cardiovascular History Hx Angina Yes Hx Cardiac Catheterization Yes Hx Cardiac Surgery Yes Hx Chest Pain Yes Hx Coronary Artery Bypass Graft Yes: 1992; stents put in since then Hx Coronary Artery Disease Yes Hx Coronary Stent Yes Hx Hypercholesterolemia Yes Hx Hypertension Yes Hx Vascular Surgery Yes: CAROTID SURGERY 06/2019 Respiratory History Hx Sleep Apnea Yes: uses CPAP Gastrointestinal History Hx Gastroesophageal Reflux Disease Yes Musculoskeletal History Hx Arthritis Yes Hx Other Musculoskeletal Disorders Yes: BACK SURGERY Hematological History Hx Hematological Disorders No Significant History Endocrine History Hx Diabetes Yes HEENT History Hx HEENT Disorders No Significant History Integumentary History Hx Skin Disorders No Significant History Other History Hx Cancer Yes: PROSTATE Pain Assessment Timing of Pain Assessment Timing of Pain Assessment Assessment Self Report Self Report Pain Level 0 Pain Score Pain Score 0: Self Report Bedside Swallow Evaluation General Reports Dysphagia feels that swallow has improves Onset of Dysphagia June 2019 Related History dysphagia after carotid endarterectomy Other Factors Impacting Dysphagia Head/Neck Surgery History of Pneumonia No Recommendations Feeding Type Recommended Oral Positions Used Chin Tucked (Flexed),Head Turned - Left Food Consistency Regular, Level 7 Liquid Consistency Thin (0) Mealtime Procedures Recommended Alternate Solids/Liquids, Forceful Swallow,Minimize Distractions,Multiple Swallows ,No Straws,Smal
== END 2019-12-02 15:13 | disposition home or self-care (01) ==
LOC: CHSST 08:25
PROVIDERS: PCP Family Medicine; Visit Provider Family Medicine
DX: R13.10 Dysphagia, unspecified (principal)
CPT/HCPCS: 92526; 92610

== ENCOUNTER 2019-11-09 12:45 | Outpatient (CLI) | payer MEDICARE, SELFPAY ==
--- NOTE | ~2019-11-09 | XR_ITS ---
MODIFIED ESOPHAGRAM HISTORY: Dysphagia. TECHNIQUE: Modified barium esophagram was performed by speech pathologist under radiologist fluorosco pic guidance. This was recorded on tape. The exam was reviewed on 11/09/2019 15:21 CDT. The DAP for this procedure was 3.1 Gycm2. Fluoroscopy time is 1.9 minutes. FINDINGS: Lateral projection of the cervical spine demonstrates prominent ventral osteophytes at mu ltiple levels including C2-3, C3-4 and C4-5.. Oral stage is within normal limits. During pharyngeal s tage there is laryngeal penetration with aspiration which is silent with thin liquids. There is dimin ished laryngeal elevation and poor tongue base retraction. Aspiration is secondary to decreased laryn geal closure.. IMPRESSION: 1: Laryngeal penetration with aspiration. 2: Please refer to speech pathologist report for additional detail. Reviewed, dictated and finalized at location A.
--- NOTE | 2019-11-10 13:14 | STOPEVAL ---
MODIFIED BARIUM SWALLOW: Thank you for referring Santo Miller to [facility]. Attending Provider: Giuseppe Kulkarni MD *ST Outpatient Evaluation: MBS Start: 11/09/19 16:46 Freq: Status: Discharge Protocol: Document 11/09/19 13:00 BECHERERT (Rec: 11/09/19 16:47 BECHERERT [email or web address]) Therapy Assessment Status Assessment Status Assessment Status Evaluation Outpatient Past Medical History Neurological History Hx Neurological Disorders No Significant History Cardiovascular History Hx Angina Yes Hx Cardiac Catheterization Yes Hx Cardiac Surgery Yes Hx Chest Pain Yes Hx Coronary Artery Bypass Graft Yes: 1992; stents put in since then Hx Coronary Artery Disease Yes Hx Coronary Stent Yes Hx Hypercholesterolemia Yes Hx Hypertension Yes Hx Vascular Surgery Yes: CAROTID SURGERY 06/2019 Respiratory History Hx Sleep Apnea Yes: uses CPAP Gastrointestinal History Hx Gastroesophageal Reflux Disease Yes Musculoskeletal History Hx Arthritis Yes Hx Other Musculoskeletal Disorders Yes: BACK SURGERY Hematological History Hx Hematological Disorders No Significant History Endocrine History Hx Diabetes Yes HEENT History Hx HEENT Disorders No Significant History Integumentary History Hx Skin Disorders No Significant History Other History Hx Cancer Yes: PROSTATE Pain Assessment Timing of Pain Assessment Timing of Pain Assessment Assessment Self Report Self Report Pain Level 0 Pain Score Pain Score 0: Self Report Modified Barium Swallow Evaluation Recent Swallowing History Reports Dysphagia Yes History of Dysphagia SINCE SURGERY IN 06/2019 Other Related History carotid endarterectomy in Jun History of Pneumonia No Reported Difficult Consistencies Solids Intake Method Prior to Swallow Oral Evaluation Diet Prior to Swallow Evaluation Soft and Bite Size, Level 6 Liquid Consistency Prior to Swallow Thin (0) Evaluation Consistency Mildly Thick Other Amount with head turn and chin tuck Method of Presentation Spoon Oral Preparatory Symptoms Within Functional Limits Oral Phase Symptoms Within Functional Limits Pharyngeal Phase Symptoms Bony Protuberance,Laryngeal Penetration,Reduced Laryngeal Elevation,Reduced Lingual Pressure,Residue in [place] Severity of Vallecular Residue Mild - 5-25 % Epiglottic Ligament Visable 8 Point Laryngeal Penet
== END 2019-11-09 12:46 | disposition home or self-care (01) ==
LOC: CHSIMG 12:46
PROVIDERS: PCP Family Medicine; Visit Provider Family Medicine
DX: R13.10 Dysphagia, unspecified (principal)
CPT/HCPCS: 92611

== ENCOUNTER 2019-11-14 13:32 | Outpatient (CLI) | payer MEDICARE, SELFPAY ==
--- NOTE | ~2019-11-14 | XR_ITS ---
XR chest 2V DATE: 11/14/2019 13:48 INDICATION: Chest pain TECHNIQUE: 2 views COMPARISON: 07/26/[address] pulmonary scan FINDINGS: Status post sternotomy and CABG. There is mild bibasilar infiltrate and/or atelectasis. No hilar or mediastinal enlargement. No pneu mothorax. There is diffuse idiopathic skeletal hyperostosis. IMPRESSION: Status post CABG Mild bibasilar infiltrate and/or atelectasis Reviewed, dictated and finalized at location B.
== END 2019-11-14 13:33 | disposition home or self-care (01) ==
LOC: CHSIMG 13:34
PROVIDERS: PCP Family Medicine; Visit Provider Nurse Practitioner Family
DX: T17.920A Food in respiratory tract, part unspecified causing asphyxiation, initial encounter (principal)
CPT/HCPCS: 71046

== ENCOUNTER 2019-12-17 09:48 | Emergency (ER) | payer MEDICARE, SELFPAY ==
[2019-12-17 09:50] VITALS: BP 147/83; PULSE 74; RESP 18; TEMP 36.4; O2SAT 98
--- NOTE | 2019-12-17 10:34 | ED.GENADULT ---
HPI - General Adult General Chief complaint: Unspecified Stated complaint: feeding tube issues History of Present Illness HPI narrative: 68 y.o. s/p carotid endarterectomy 06/30 with subsequent difficulty swallowing. A PEG was inserted in late July. Pt. had tube feedings until several months ago. He's been able to eat and swallow since then. Over the past 2 weeks the tube has been partially coming out but patient has been able to reinsert it fully until this AM. Pt had been told of concern of bleeding induced by removal and the need to be off Eliquis for 2 days before it was removed. He's on Eliquis for atrial fibrillation and saddle embolus/ leg DVT 4 - 5 months ago when a IVC filter was also placed. He c/o frequent burning but no heartburn. He has occasional dysphagia. Related Data Home Medications Medication Instructions Recorded Confirmed finasteride 5 mg tablet 5 mg PO DAILY 04/01/19 11/30/19 nitroglycerin 0.4 mg sublingual 0.4 mg SUBLINGUAL Q5M PRN 04/01/19 11/30/19 tablet atorvastatin 80 mg PO HS 06/06/19 11/30/19 metformin 500 mg PO BID 06/30/19 11/30/19 clonidine HCl 0.1 mg tablet 0.1 mg PO DAILY 09/16/19 11/30/19 aspirin 81 mg tablet,delayed 81 mg PO DAILY 11/14/19 11/30/19 release finasteride 5 mg tablet 5 mg PO DAILY 11/14/19 11/30/19 tamsulosin 0.4 mg capsule 0.4 mg PO DAILY 11/14/19 11/30/19 ticagrelor 90 mg tablet 90 mg PO BID tablet 11/30/19 11/30/19 Allergies Allergy/AdvReac Type Severity Reaction Status Date / Time No Known Allergies Allergy Verified 11/30/19 08:14 Review of Systems Constitutional: Constitutional: Denies chills and Denies fever(s) ENT: Denies sore throat Cardiovascular: Cardiovascular: Denies chest pain Respiratory: Respiratory: Denies dyspnea Gastrointestinal: Gastrointestinal: Denies abdominal pain [facility] Surgical History Surgical History H/O carotid endarterectomy 06/2019 History of heart artery stent 1 stent: 03/2005 1 stent: 02/2008 3 stents: 02/2009 1 stent: 12/2013 1 stent: 09/2014 History of lumbar laminectomy 03/2016 Hx of coronary artery bypass graft S/P percutaneous endoscopic gastrostomy (PEG) tube placement Status post trigger finger release (~2017) Family History Family History Mother , mother at age 58 of [place] No problems noted. Father , father of coronary artery disease at age 55 No problems noted. Other Family history of coronary artery disease Social History Social History Smoking status: Former smoker Alcohol intake: never Substance use: never Substance use type: does not use Additional living arrangements comments: Gender identity (if verbalized by the patient): Male Sexual Orientation (if Verbalized by the Patient): Straight or Heterosexual Exam Const: General: no acute distress Orientation/consciousness: patient oriented x3 GI: GI Palp: Yes Soft to palpation, No Tenderness to palpation present (GI), No Guarding due to palpation present (GI), No Rigid due to palpation and Yes Other GI palpation findings present Other: P.E.G. tube LUQ. Tube has slight mobility but cannot be inserted freely into the stomach. There is no pain. No dried blood on tube. Surrounding tissue is not red, indurated or tender. Course Consultations Consultation #1: I spoke with Dr. Murillo whom pt. is scheduled to see on 12/21; situation explained. He recommended leaving the PEG tube where it is, stopping Eliquis on 12/19 and being seen on 12/21 for tube removal. Date: 12/17/19 Vital Signs Vital signs: Vital Signs Temperature 36.4 C 12/17/19 09:50 Pulse Rate 74 12/17/19 09:50 Respiratory Rate 18 12/17/19 09:50 Blood Pressure 147/83 H 12/17/19 09:50 Pulse Oximetry 98 12/17/19 09:50 Temperature 36.3 C L
--- NOTE | 2019-12-17 11:07 | PC.NURSE ---
1040 CALL TO GI DOCTOR FOR PLAN OF CARE
[2019-12-17 11:16] VITALS: BP 140/70; PULSE 70; RESP 18; TEMP 36.3; O2SAT 98
== END 2019-12-17 11:25 | disposition home or self-care (01) ==
PROVIDERS: Emergency Provider Family Medicine; PCP Family Medicine
DX: K94.29 Other complications of gastrostomy (principal)
CPT/HCPCS: 99282

== ENCOUNTER 2020-01-07 08:28 | Emergency (ER) | payer MEDICARE, SELFPAY ==
--- NOTE | ~2020-01-07 | CT_ITS ---
EXAMINATION: CTA chest PE protocol DATE: 01/07/2020 10:27 INDICATION: Shortness of breath. Elevated d-dimer. TECHNIQUE: Computed tomography (CT) pulmonary angiogram of the chest was performed with 100 mL Omnipa que-350 intravenous contrast. Additional 3D reconstructions utilizing coronal maximum intensity proje ction (MIP) were performed. Automated exposure control and iterative reconstruction technique were em ployed. The dose-length product was 673.10 mGy-cm. COMPARISON: None FINDINGS: Excellent contrast opacification of the pulmonary arteries. There is mild streak artifact from dense contrast in the superior vena cava and right atrium. Minimal scattered respiratory motion artifact. N o pulmonary embolism. Small left and caepo-vl-qkqipwjd right posteriorly layering pleural effusions. Dependent atelectasis in the bilateral lower lobes. No pneumonia, pulmonary edema or pneumothorax. Co uple calcified nodules in the left lower lobe along with calcified left hilar lymph nodes and several splenic calcifications, all consistent with old granulomatous disease. Mild cardiomegaly. Postoperat yeimy change of prior median sternotomy and coronary artery bypass grafting. There is also been prior c oronary artery stenting. No pericardial effusion. Thoracic aorta is normal in caliber. No pathologica lly enlarged thoracic lymphadenopathy. Multinodular goiter. Small sliding-type hiatal hernia. Small amount of ascites in the visualized upper abdomen. There are bridging osteophytes at multiple levels in the spine, consistent with diffuse idiopathic skeletal hyperostosis (DISH). IMPRESSION: 1. No pulmonary embolism. 2. Small left and faapt-uq-zegpaxqc right pleural effusions with dependent atelectasis in the bilater al lower lobes. 3. Small amount of ascites in the visualized upper abdomen. 4. Small sliding-type hiatal hernia. Reviewed, dictated and finalized at location A. IMPRESSION: 1. No pulmonary embolism. 2. Small left and vhmnz-fx-nkswdmik right pleural effusions with dependent atel ectasis in the bilateral lower lobes. 3. Small amount of ascites in the visualized upper abdomen. 4. Small sliding-type hiatal hernia.
--- NOTE | ~2020-01-07 | XR_ITS ---
EXAMINATION: XR chest 2V DATE: 01/07/2020 09:13 INDICATION: Shortness of breath TECHNIQUE: PA and lateral views of the chest were obtained. COMPARISON: Chest radiograph dated 11/14/2019 FINDINGS: Flattening of the diaphragm and mild opacities at the lung bases with blunting at the costophrenic an gles consistent with likely small bilateral pleural effusions. No pulmonary edema or pneumothorax. Ca rdiomegaly. Median sternotomy wires and mediastinal surgical clips are seen, likely from prior gracia ry artery bypass grafting. There are also a couple cardiac stents. There are bridging osteophytes at multiple levels in the spine, consistent with diffuse idiopathic skeletal hyperostosis (DISH). IMPRESSION: 1. Small bilateral pleural effusions with bibasilar atelectasis versus less likely pneumonia. 2. Cardiomegaly. Reviewed, dictated and finalized at location A. IMPRESSION: 1. Small bilateral pleural effusions with bibasilar atelectasis versus less lik marlene pneumonia. 2. Cardiomegaly.
[2020-01-07 08:40] VITALS: BP 138/77; PULSE 72; RESP 16; TEMP 36.8; O2SAT 98
--- NOTE | 2020-01-07 08:41 | ED.GENADULT ---
HPI - General Adult General Chief complaint: Unspecified Stated complaint: SOB Source: patient and other () Mode of arrival: ambulatory Limitations: no limitations History of Present Illness HPI narrative: 69 y.o. with CAD, stent placement multiple times, last placement 1 month ago, atrial fibrillation x 8 weeks, hx of DVT/PE 07/2019 removal of IVC filter 10 days ago, htn and type 2 DM. Pt c/o SOB x 3 - 4 days, most prominent during the night, first thing in the AM, when laying supine, improves when he sits of stands up; also has new onset of D.O.E. Denies increased nighttime urination. He denies chest/neck/arm pain. No known exposure to Covid. Has an occasional cough which is not new; unproductive. There is chronic swelling of both legs which has not changed. He denies hx of CHF/COPD/asthma/GA. His pulse rate has been between 50-60 x 2 months. Related Data Home Medications Medication Instructions Recorded Confirmed finasteride 5 mg tablet 5 mg PO DAILY 04/01/19 01/07/20 atorvastatin 80 mg PO HS 06/06/19 01/07/20 metformin 500 mg PO BID 06/30/19 01/07/20 clonidine HCl 0.1 mg tablet 0.1 mg PO DAILY 09/16/19 01/07/20 tamsulosin 0.4 mg capsule 0.4 mg PO DAILY 11/14/19 01/07/20 diphenhydramine-acetaminophen 1 tablet PO HS PRN 01/07/20 01/07/20 [Tylenol PM Extra Strength] ticagrelor [Brilinta] 90 mg PO Q12H 01/07/20 01/07/20 Allergies Allergy/AdvReac Type Severity Reaction Status Date / Time No Known Allergies Allergy Verified 12/22/19 08:53 Review of Systems Constitutional: Constitutional: Denies chills and Denies fever(s) ENT: Reports dysphagia (associated with CVA; no feeding tube. ) Cardiovascular: Cardiovascular: Denies chest pain, Denies rapid heart rate, Denies radiating jaw, neck or arm pain and Reports slow heart rate Respiratory: Respiratory: Reports no additional respiratory complaints Gastrointestinal: Gastrointestinal: Denies abdominal pain, Denies diarrhea and Denies vomiting Genitourinary: Genitourinary: Denies dysuria Musculoskeletal: Comments: chronic pain in left groin radiates into briana/medial thigh. Integumentary/Breasts: Skin/Breast: Denies rash Neurologic: Denies vertigo, Denies focal weakness, Denies numbness and Denies weakness Endocrine: Endocrine: Reports polyuria Hematologic/Lymphatic: Hematologic/Lymphatic: Reports easy bleeding Allergic/Immunologic: Allergic/Immunologic: Reports no additional allergic/immunologic complaints PMFSH Past Medical History Medical History BMI 32.0-32.9,adult BPH (benign prostatic hyperplasia) CAD (coronary artery disease) Coronary artery disease involving coronary bypass graft of [place] heart Dysphagia GERD (gastroesophageal reflux disease) Hypertension associated with diabetes Multinodular goiter Nausea Obesity Saddle embolus Sleep apnea Thyroid nodule Type 2 diabetes mellitus, without long-term current use of insulin Surgical History Surgical History H/O carotid endarterectomy 06/2019 History of heart artery stent 1 stent: 03/2005 1 stent: 02/2008 3 stents: 02/2009 1 stent: 12/2013 1 stent: 09/2014 History of lumbar laminectomy 03/2016 Hx of coronary artery bypass graft S/P percutaneous endoscopic gastrostomy (PEG) tube placement Status post trigger finger release (~2017) Social History Social History Smoking status: Never smoker Alcohol intake: never Substance use: never Substance use type: does not use Additional living arrangements comments: Gender identity (if verbalized by the patient): Male Sexual Orientation (if Verbalized by the Patient): Straight or Heterosexual Exam Narrative: Exam Narrative: No tachypnea or increased respiratory effort. Speaks in full sentences. Const: General: healthy appearing, no acute distress a
--- NOTE | 2020-01-07 09:00 | ECG_ITS ---
Measurements Intervals [place] Rate: 51 P: [place]: 0 QRS: 1 QRSD: 86 T: 9 QT: 442 QTc: 409 Interpretive Statements ATRIAL FIBRILLATION WITH SLOW VENTRICULAR RESPONSE LOW QRS VOLTAGE IN PRECORDIAL LEADS ABNORMAL ECG Electronically Signed On 01-08-2020 8:53:02 CDT by Cristian Vo D.O.
--- NOTE | 2020-01-07 09:15 | PC.NURSE ---
0830 to room, on at 1.5lm nc for comfort.
[2020-01-07 09:27] LABS: Basophils Absolute Auto 0.01 K/mm3 (0.00-0.10); Basophils Percent Auto 0.2 % (0.0-1.0); Eosinophils Absolute Auto 0.07 K/mm3 (0.02-0.50); Eosinophils Percent Auto 1.3 % (1.0-6.0); Hematocrit 34.5 % (37.0-46.0); Hemoglobin 10.7 g/dL (12.4-15.3); Immature Granulocyte Absolute 0.02 K/mm3 (0.00-0.00); Immature Granulocyte Percent A 0.4 % (0.0-0.0); Lymphocytes Absolute Auto 0.68 K/mm3 (1.10-4.50); Mean Corpuscular Hemoglobin 27.8 pg (27.0-31.0); Mean Corpuscular Volume 89.6 fL (78.0-102.0); Mean Platelet Volume 10.2 fl (8.7-11.0); Monocytes Absolute Auto 0.27 K/mm3 (0.10-0.90); Monocytes Percent Auto 5.2 % (2.0-11.0); Neutrophils Absolute Auto 4.2 K/mm3 (1.7-7.2); Neutrophils Percent Auto 79.9 % (50.0-70.0); Platelet Count Result 128 K/mm3 (150-420); Red Blood Count 3.85 M/mm3 (4.70-6.10); Red Cell Distribution Width 15.7 % (11.6-14.4); White Blood Count 5.2 K/mm3 (4.8-10.8)
[2020-01-07 09:32] VITALS: BP 125/70; PULSE 60; RESP 16; O2SAT 100
[2020-01-07 09:42] LABS: BNP 217 pg/mL (0-100)
[2020-01-07 09:43] LABS: Magnesium 1.4 mg/dL (1.8-2.4)
[2020-01-07 09:43] LABS: D Dimer 1.72 mg/L (0.19-0.50)
[2020-01-07 09:44] LABS: Troponin I < 0.02 ng/mL (0.00-0.056)
[2020-01-07 09:45] LABS: Alanine Aminotransferase 23 U/L (16-63); Albumin Level 3.3 g/dL (3.4-5.0); Alkaline Phosphatase 86 U/L (46-116); Anion Gap 6 mmol/L (8-16); Aspartate Amino Transferase 17 U/L (15-37); Bilirubin,Total 1.1 mg/dL (0.00-1.00); Blood Urea Nitrogen 12 mg/dL (7-18); Calcium 8.7 mg/dL (8.5-10.1); Carbon Dioxide 29 mmol/L (21-32); Chloride 107 mmol/L (98-108); Estimated CRCL calculation 60 ml/min; Estimated Glomerular Filt Rate > 60; Glucose 163 mg/dL (70-99); Osmolality Calculated 297 mOsm/kg (285-295); Potassium 4.5 mmol/L (3.5-5.1); Sodium 142 mmol/L (136-145); Total Protein 6.3 g/dL (6.4-8.2)
--- NOTE | 2020-01-07 10:04 | PC.NURSE ---
attempted IV x2 no success, called charge nurse to attempt
[2020-01-07] MEDS: MAGNESIUM SULF 2 GM/WATER 50ML 2 GM/50 ML BAG IVPB (10:49)
[2020-01-07 11:17] VITALS: BP 120/80; PULSE 56; RESP 16; O2SAT 96
[2020-01-07 11:26] LABS: Add Urine Microscopic? YES; Appearance Urine Sl Cloudy (Clear); Bilirubin Urine Negative (Negative); Blood Urine 3+ (Negative); Color Urine Yellow (Yellow); Glucose Urine UA Negative (Negative); Ketones Urine Negative (Negative); Leukocyte Esterase Ur Negative (Negative); Nitrate Urine Negative (Negative); Protein Urine Negative (Negative); Urobilinogen Urine Negative mg/dL (0.2-1.0); pH Urine 8.5 (5.0-8.0)
[2020-01-07 11:27] LABS: Bacteria Urine None seen /hpf; RBC Urine >75 /hpf (0-2); Squamous Epithelial Cell Urine Rare /hpf (Few); WBC Urine None seen /hpf (0-3)
[2020-01-07 12:12] VITALS: BP 126/66; PULSE 54; RESP 18; O2SAT 95
[2020-01-09 13:06] LABS: SARS-CoV-2 RNA PCR Negative
== END 2020-01-07 12:12 | disposition home or self-care (01) ==
PROVIDERS: Emergency Provider Family Medicine; PCP Family Medicine
DX: R06.02 Shortness of breath (principal); I49.8 Other specified cardiac arrhythmias
CPT/HCPCS: 36415; 71046; 71275; 80053; 81001; 83735; 83880; 84484; 85025; 85380; 87635; 93005; 96365; 99283; 99284; C9803; J3475; Q9965; U0003

== ENCOUNTER 2020-03-15 09:35 | Outpatient (CLI) | payer MEDICARE, SELFPAY ==
[2020-03-15 10:06] LABS: Anion Gap 8 mmol/L (8-16); Blood Urea Nitrogen 9 mg/dL (7-18); Calcium 9.2 mg/dL (8.5-10.1); Carbon Dioxide 31 mmol/L (21-32); Chloride 105 mmol/L (98-108); Estimated Glomerular Filt Rate > 60; Glucose 121 mg/dL (70-99); Osmolality Calculated 297 mOsm/kg (285-295); Potassium 3.9 mmol/L (3.5-5.1); Sodium 144 mmol/L (136-145)
== END 2020-03-15 09:36 | disposition home or self-care (01) ==
PROVIDERS: PCP Family Medicine; Visit Provider Specialist
DX: I10 Essential (primary) hypertension (principal)
CPT/HCPCS: 36415; 80048

== ENCOUNTER 2020-04-04 07:18 | Outpatient (CLI) | payer MEDICARE, SELFPAY ==
[2020-04-04 07:38] LABS: Basophils Absolute Auto 0.02 K/mm3 (0.00-0.10); Basophils Percent Auto 0.3 % (0.0-1.0); Eosinophils Absolute Auto 0.08 K/mm3 (0.02-0.50); Eosinophils Percent Auto 1.3 % (1.0-6.0); Hematocrit 38.4 % (37.0-46.0); Hemoglobin 12.1 g/dL (12.4-15.3); Immature Granulocyte Absolute 0.02 K/mm3 (0.00-0.00); Immature Granulocyte Percent A 0.3 % (0.0-0.0); Lymphocytes Percent Auto 17.9 % (18.0-42.0); Mean Corpuscular HGB Conc 31.5 g/dL (32.0-36.0); Mean Corpuscular Hemoglobin 27.3 pg (27.0-31.0); Mean Corpuscular Volume 86.5 fL (78.0-102.0); Mean Platelet Volume 10.7 fl (8.7-11.0); Monocytes Absolute Auto 0.45 K/mm3 (0.10-0.90); Monocytes Percent Auto 7.3 % (2.0-11.0); Neutrophils Absolute Auto 4.5 K/mm3 (1.7-7.2); Neutrophils Percent Auto 72.9 % (50.0-70.0); Platelet Count Result 153 K/mm3 (150-420); Red Blood Count 4.44 M/mm3 (4.70-6.10); Red Cell Distribution Width 14.4 % (11.6-14.4); White Blood Count 6.1 K/mm3 (4.8-10.8)
[2020-04-04 08:16] LABS: Hemoglobin A1C 6.4 % (<5.7)
[2020-04-04 09:01] LABS: Alanine Aminotransferase 36 U/L (16-63); Albumin Level 3.8 g/dL (3.4-5.0); Alkaline Phosphatase 104 U/L (46-116); Anion Gap 6 mmol/L (8-16); Aspartate Amino Transferase 30 U/L (15-37); Bilirubin,Total 0.8 mg/dL (0.00-1.00); Blood Urea Nitrogen 11 mg/dL (7-18); Calcium 9.2 mg/dL (8.5-10.1); Carbon Dioxide 35 mmol/L (21-32); Chloride 104 mmol/L (98-108); Cholesterol 96 mg/dL (0-200); Estimated Glomerular Filt Rate > 60; Free T4 Free Thyroxine 1.22 ng/dL (0.76-1.46); Glucose 129 mg/dL (70-99); HDL Direct 35 mg/dL (40-60); LDL Cholesterol Calculated 48 mg/dL (<130); Magnesium 1.4 mg/dL (1.8-2.4); Osmolality Calculated 301 mOsm/kg (285-295); Potassium 3.7 mmol/L (3.5-5.1); Sodium 145 mmol/L (136-145); Thyroid Stimulating Hormone 1.44 uIU/mL (0.36-3.74); Total Protein 6.9 g/dL (6.4-8.2); Triglycerides 66 mg/dL (0-150)
[2020-04-07 11:56] LABS: Vitamin D 25 Hydroxy 26 ng/mL (30-100)
== END 2020-04-04 07:19 | disposition home or self-care (01) ==
LOC: CHSLAB 07:22
PROVIDERS: PCP Nurse Practitioner Family; Visit Provider Nurse Practitioner Family
DX: R63.4 Abnormal weight loss (principal); E11.9 Type 2 diabetes mellitus without complications; Z00.00 Encounter for general adult medical examination without abnormal findings; Z79.899 Other long term (current) drug therapy
CPT/HCPCS: 36415; 80053; 80061; 82306; 83036; 83735; 84439; 84443; 85025

== ENCOUNTER 2020-10-04 16:25 | Outpatient (CLI) | payer MEDICARE, SELFPAY ==
--- NOTE | ~2020-10-04 | CT_ITS ---
EXAMINATION: CT abdomen pelvis w con DATE: 10/04/2020 17:30 INDICATION: Right lower quadrant pain for 2 weeks. Nausea. TECHNIQUE: Computed tomography (CT) of the abdomen and pelvis was performed with 100 cc Omnipaque 350 intravenous contrast. The dose-length product was 520.98 mGy-cm. Automated exposure control and iter ative reconstruction technique were employed. COMPARISON: CT dated 02/03/2019. FINDINGS: Lung bases are unremarkable. No significant pleural or pericardial effusion. Small hiatal h ernia. There are calcified granulomas of the spleen. Gallbladder is present. The liver, adrenal gland s and left kidney are unremarkable. There is a small 7 mm cystic lesion of the pancreatic body. There are pancreatic calcifications suggesting chronic pancreatitis. Moderate atherosclerosis without aneurysm. There is a left internal ureteral stent with the proximal coil in the left renal pelvis and distal coil in the bladder. No lymphadenopathy. The tail of the tracey endix appears mildly thickened measuring 8 mm with subtle periappendiceal infiltration. No evidence f or perforation or abscess. Prostate gland mildly enlarged. High density material in the appendix may represent appendicoliths or contrast. IMPRESSION: 1. Mildly prominent appendiceal tail measuring 8 mm with subtle surrounding fatty infiltration. Canno t exclude early acute appendicitis. Correlate clinically. 2: Left internal ureteral stent in expected position. 3: 7 mm cystic lesion of the pancreatic body. The differential diagnosis includes pseudocyst, intrad uctal papillary mucinous neoplasm (IPMN), mucinous cystic neoplasm (MCN), and the less common serous cystadenoma and neuroendocrine tumor. Reviewed, dictated and finalized at location A. IMPRESSION: 1. Mildly prominent appendiceal tail measuring 8 mm with subtle surrounding fat ty infiltration. Cannot exclude early acute appendicitis. Correlate clinically. 2: Left internal ureteral stent in expected position. 3: 7 mm cystic lesion of the pancreatic body. The differential diagnosis inclu chris pseudocyst, intraductal papillary mucinous neoplasm (IPMN), mucinous cystic neoplasm (MCN), and the less common serous cystadenoma and neuroendocrine tumo r.
[2020-10-04 16:49] LABS: Estimated Glomerular Filt Rate 56
== END 2020-10-04 16:26 | disposition home or self-care (01) ==
LOC: CHSIMG 16:28
PROVIDERS: PCP Family Medicine; Visit Provider Family Medicine
DX: R10.31 Right lower quadrant pain (principal)
CPT/HCPCS: 74177; Q9967

== ENCOUNTER 2020-10-10 11:11 | Outpatient (CLI) | payer MEDICARE, SELFPAY ==
[2020-10-10 11:22] LABS: Basophils Absolute Auto 0.02 K/mm3 (0.00-0.10); Basophils Percent Auto 0.3 % (0.0-1.0); Eosinophils Absolute Auto 0.02 K/mm3 (0.02-0.50); Eosinophils Percent Auto 0.3 % (1.0-6.0); Hemoglobin 12.5 g/dL (12.4-15.3); Immature Granulocyte Absolute 0.03 K/mm3 (0.00-0.00); Immature Granulocyte Percent A 0.4 % (0.0-0.0); Lymphocytes Absolute Auto 1.27 K/mm3 (1.10-4.50); Lymphocytes Percent Auto 18.1 % (18.0-42.0); Mean Corpuscular HGB Conc 33.8 g/dL (32.0-36.0); Mean Corpuscular Hemoglobin 29.3 pg (27.0-31.0); Mean Corpuscular Volume 86.9 fL (78.0-102.0); Mean Platelet Volume 9.3 fl (8.7-11.0); Monocytes Absolute Auto 0.47 K/mm3 (0.10-0.90); Monocytes Percent Auto 6.7 % (2.0-11.0); Neutrophils Absolute Auto 5.2 K/mm3 (1.7-7.2); Neutrophils Percent Auto 74.2 % (50.0-70.0); Platelet Count Result 163 K/mm3 (150-420); Red Blood Count 4.26 M/mm3 (4.70-6.10); Red Cell Distribution Width 13.6 % (11.6-14.4)
[2020-10-10 11:42] LABS: Lactic Acid 2.2 mmol/L (0.4-2.0)
[2020-10-10 12:53] LABS: Alanine Aminotransferase 50 U/L (16-63); Albumin Level 3.8 g/dL (3.4-5.0); Alkaline Phosphatase 87 U/L (46-116); Amylase 51 U/L (25-115); Anion Gap 10 mmol/L (8-16); Aspartate Amino Transferase 18 U/L (15-37); Bilirubin,Total 0.7 mg/dL (0.00-1.00); Blood Urea Nitrogen 17 mg/dL (7-18); Carbon Dioxide 29 mmol/L (21-32); Chloride 99 mmol/L (98-108); Estimated Glomerular Filt Rate > 60; Glucose 126 mg/dL (70-99); Lactate Dehydrogenase 156 U/L (85-227); Lipase 141 U/L (73-393); Osmolality Calculated 289 mOsm/kg (285-295); Potassium 3.8 mmol/L (3.5-5.1); Sodium 138 mmol/L (136-145); Total Protein 6.6 g/dL (6.4-8.2)
== END 2020-10-10 11:12 | disposition home or self-care (01) ==
LOC: CHSLAB 11:14
PROVIDERS: PCP Family Medicine; Visit Provider Family Medicine
DX: R10.9 Unspecified abdominal pain (principal); E11.59 Type 2 diabetes mellitus with other circulatory complications
CPT/HCPCS: 36415; 80053; 82150; 83605; 83615; 83690; 85025

== ENCOUNTER 2020-12-14 10:49 | Outpatient (CLI) | payer MEDICARE, SELFPAY ==
--- NOTE | ~2020-12-14 | XR_ITS ---
EXAMINATION: XR hip LT min 2V INDICATION: Left hip pain TECHNIQUE: Two views of the left hip are obtained. COMPARISON: None available FINDINGS: Bone alignment is normal. There is no fracture. There is moderate osteoarthritis. Calcified atherosclerosis is noted. There are surgical clips in the medial soft tissues of the left proximal t high. IMPRESSION: 1. Moderate osteoarthritis without acute osseous abnormality. Reviewed, dictated and finalized at location A.
== END 2020-12-14 10:50 | disposition home or self-care (01) ==
PROVIDERS: PCP Family Medicine; Visit Provider Family Medicine
DX: M25.552 Pain in left hip (principal)
CPT/HCPCS: 73502

== ENCOUNTER 2020-12-18 09:54 | Outpatient (RCR) | payer MEDICARE, SELFPAY ==
--- NOTE | 2020-12-18 11:08 | PTOPEVAL ---
Thank you for referring Santo Miller to [facility].? The patient is scheduled to be seen for therapy? ____x/week for ___ weeks. Please review, sign, date and return this plan of care GELA. I agree with and certify that the following plan of care is medically necessary. Referring Physician Date Admitting Provider: Attending Provider: Giuseppe Kulkarni MD Referring Provider: *PT Outpatient Evaluation Start: 12/18/20 10:02 Freq: Status: Active Protocol: Document 12/18/20 10:02 ACR (Rec: 12/18/20 11:06 ACR [id number]) Therapy Assessment Status Assessment Status Assessment Status Evaluation Outpatient Past Medical History Neurological History Hx Neurological Disorders No Significant History Cardiovascular History Hx Angina Yes Hx Cardiac Catheterization Yes Hx Cardiac Surgery Yes Hx Chest Pain Yes Hx Coronary Artery Bypass Graft Yes: 1992; stents put in since then Hx Coronary Artery Disease Yes Hx Coronary Stent Yes Hx Hypercholesterolemia Yes Hx Hypertension Yes Hx Vascular Surgery Yes: CAROTID SURGERY 06/2019 Respiratory History Hx Sleep Apnea Yes: uses CPAP Gastrointestinal History Hx Gastroesophageal Reflux Disease Yes Musculoskeletal History Hx Arthritis Yes Hx Other Musculoskeletal Disorders Yes: BACK SURGERY Hematological History Hx Hematological Disorders No Significant History Endocrine History Hx Diabetes Yes HEENT History Hx HEENT Disorders No Significant History Integumentary History Hx Skin Disorders No Significant History Other History Hx Cancer Yes: PROSTATE Evaluation Information Problem Diagnosis Pain in left hip Onset 11/27/20 Subjective Information Patient states that he has Query Text:As Reported By Patient/ pain in the back, side of the Family hip, and on the inside and outside of the thigh. Patient states that the pain is waking him up at night. Patient states that walking, standing, standing up from a seated position are all difficult for him. He states that if he moves too fast his hip may give out. Patient states that the pain isn't severe, but more annoying. Patient states his goal for therapy is to relieve the pain
--- NOTE | 2021-01-17 11:25 | PTOPEVAL ---
Thank you for referring Santo Miller to [facility].? The patient is scheduled to be seen for therapy? ____x/week for ___ weeks. Please review, sign, date and return this plan of care GELA. I agree with and certify that the following plan of care is medically necessary. Referring Physician Date Admitting Provider: Attending Provider: Giuseppe Kulkarni MD Referring Provider: *PT Outpatient Evaluation Start: 12/18/20 10:02 Freq: Status: Active Protocol: Document 01/17/21 10:19 ACR (Rec: 01/17/21 11:23 ACR [email or web address]) Therapy Assessment Status Assessment Status Assessment Status Discharge Outpatient Past Medical History Neurological History Hx Neurological Disorders No Significant History Cardiovascular History Hx Angina Yes Hx Cardiac Catheterization Yes Hx Cardiac Surgery Yes Hx Chest Pain Yes Hx Coronary Artery Bypass Graft Yes: 1992; stents put in since then Hx Coronary Artery Disease Yes Hx Coronary Stent Yes Hx Hypercholesterolemia Yes Hx Hypertension Yes Hx Vascular Surgery Yes: CAROTID SURGERY 06/2019 Respiratory History Hx Sleep Apnea Yes: uses CPAP Gastrointestinal History Hx Gastroesophageal Reflux Disease Yes Musculoskeletal History Hx Arthritis Yes Hx Other Musculoskeletal Disorders Yes: BACK SURGERY Hematological History Hx Hematological Disorders No Significant History Endocrine History Hx Diabetes Yes HEENT History Hx HEENT Disorders No Significant History Integumentary History Hx Skin Disorders No Significant History Other History Hx Cancer Yes: PROSTATE Evaluation Information Problem Diagnosis pain in L hip Onset 11/27/20 Subjective Information Patient reports that since Query Text:As Reported By Patient/ beginning therapy his back no Family longer bothers nasima dn his hip has minimal pain. He states that if he does all of his exercises and stretches his hip feels better. Pain Assessment Timing of Pain Assessment Timing of Pain Assessment Assessment Pain Scale Pain Scale Used Numeric (1 - 10) Self Report Pain Assessment Left Hip(s) Reported Pain Level 1 Greatest Pain Intensity 2 Pain Score Pain Score 1: Self Report Interventions Used Interventions Used By Clinicians Activity or ADL's,Electrical Stimulation,Exercise,Heat Lower Extremity Range of Motion Hip Range of Motion Right Hip Flexio
== END 2021-01-17 08:45 | disposition home or self-care (01) ==
LOC: CHSPT 09:54
PROVIDERS: PCP Family Medicine; Visit Provider Family Medicine
DX: M25.552 Pain in left hip (principal)
CPT/HCPCS: 97014; 97110; 97161; G0283

== ENCOUNTER 2021-01-22 13:17 | Outpatient (CLI) | payer MEDICARE, SELFPAY ==
--- NOTE | ~2021-01-22 | US_ITS ---
EXAMINATION: US thyroid EXAM DATE: 01/22/2021 13:52 INDICATION: Goiter and dysphagia . TECHNIQUE: Multiple grayscale and Doppler images of the thyroid were obtained (by a technologist who performed the scan) and subsequently reviewed. Individual nodules and recommendations may be reporte d in accordance with TI-RADS system as designated by the 2017 ACR White Paper TI-RADS committee. Comp dionicio is made to prior examination from 07/20/2019. FINDINGS: Right there are lobe measures 6.1 x 2.0 x 2.0 centimeters, the left measuring 4.5 x 1.6 x 2.2 cm. Dif fusely heterogeneous thyroid echogenicity making individual nodules difficult to pick out. Largest right thyroid lobe discrete nodules suspected to be in the lower pole measuring 3.1 x 1.9 x 2 .7 cm, category TR 4. This region may not have been measured on previous exam. Right thyroid lobe nod ule measuring 1.5 x 1.2 x 1.3 cm, category TR 4, and another nodule measuring 1.2 x 1.7 x 1.3 cm. Several left thyroid lobe nodules measuring up to 1.3 cm (previously region was measured at 2.4 cm). IMPRESSION: Heterogeneous, multinodular goiter. Difficult to determine change in nodule size due to g eneral thyroid heterogeneity. Consider ultrasound-guided FNA of the largest 2 nodules. Reviewed, dictated and finalized at location B. IMPRESSION: Heterogeneous, multinodular goiter. Difficult to determine change i n nodule size due to general thyroid heterogeneity. Consider ultrasound-guided FNA of the largest 2 nodules.
[2021-01-22 14:47] LABS: Free T4 Free Thyroxine 1.25 ng/dL (0.76-1.46)
== END 2021-01-22 13:18 | disposition home or self-care (01) ==
LOC: CHSIMG 13:19
PROVIDERS: PCP Family Medicine
DX: E04.2 Nontoxic multinodular goiter (principal)
CPT/HCPCS: 36415; 76536; 84439; 84443

== ENCOUNTER 2021-02-20 10:38 | Outpatient (CLI) | payer MEDICARE, SELFPAY ==
[2021-02-20 11:08] LABS: Hemoglobin A1C 6.9 % (<5.7)
[2021-02-20 11:32] LABS: Cholesterol 120 mg/dL (0-200); HDL Direct 39 mg/dL (40-60); LDL Cholesterol Calculated 66 mg/dL (<130); Magnesium 1.6 mg/dL (1.8-2.4); Triglycerides 77 mg/dL (0-150)
[2021-02-23 22:46] LABS: Vitamin D 25 Hydroxy 58 ng/mL (30-100)
== END 2021-02-20 10:39 | disposition home or self-care (01) ==
LOC: CHSLAB 10:40
PROVIDERS: PCP Family Medicine; Visit Provider Family Medicine
DX: E11.9 Type 2 diabetes mellitus without complications (principal); R79.0 Abnormal level of blood mineral; R79.89 Other specified abnormal findings of blood chemistry; E55.9 Vitamin D deficiency, unspecified
CPT/HCPCS: 36415; 80061; 82306; 83036; 83735

== ENCOUNTER 2021-12-25 10:15 | Outpatient (CLI) | payer MEDICARE, SELFPAY ==
[2021-12-25 10:35] LABS: Hematocrit 34.3 % (37.0-46.0); Mean Corpuscular HGB Conc 32.1 g/dL (32.0-36.0); Mean Corpuscular Hemoglobin 27.6 pg (27.0-31.0); Mean Corpuscular Volume 86.2 fL (78.0-102.0); Mean Platelet Volume 9.1 fl (8.7-11.0); Platelet Count Result 226 K/mm3 (150-420); Red Blood Count 3.98 M/mm3 (4.70-6.10); Red Cell Distribution Width 14.1 % (11.6-14.4); White Blood Count 7.7 K/mm3 (4.8-10.8)
[2021-12-25 11:24] LABS: Alanine Aminotransferase 21 U/L (16-63); Albumin Level 3.9 g/dL (3.4-5.0); Alkaline Phosphatase 86 U/L (46-116); Anion Gap 8 mmol/L (8-16); Aspartate Amino Transferase 14 U/L (15-37); Bilirubin,Total 0.6 mg/dL (0.00-1.00); Blood Urea Nitrogen 22 mg/dL (7-18); Calcium 9.3 mg/dL (8.5-10.1); Carbon Dioxide 31 mmol/L (21-32); Chloride 97 mmol/L (98-108); Estimated Glomerular Filt Rate > 60; Ferritin 32 ng/mL (26-388); Glucose 118 mg/dL (70-99); Iron 50 ug/dL (65-175); Osmolality Calculated 286 mOsm/kg (285-295); Percent Iron Saturation 14 % (12-57); Potassium 3.3 mmol/L (3.5-5.1); Sodium 136 mmol/L (136-145); Total Protein 6.9 g/dL (6.4-8.2)
[2021-12-25 11:25] LABS: Thyroid Stimulating Hormone Reflex 1.06 u/IU/mL (0.36-3.74)
== END 2021-12-25 10:16 | disposition home or self-care (01) ==
LOC: CHSLAB 10:17
PROVIDERS: PCP Family Medicine; Visit Provider Family Medicine
DX: D50.9 Iron deficiency anemia, unspecified (principal); R42 Dizziness and giddiness; E11.9 Type 2 diabetes mellitus without complications
CPT/HCPCS: 36415; 80053; 82728; 83540; 83550; 84443; 85027

== ENCOUNTER 2021-12-26 08:13 | Outpatient (CLI) | payer MEDICARE, SELFPAY ==
[2021-12-26 08:26] LABS: Occult Blood Positive (Negative)
== END 2021-12-26 08:14 | disposition home or self-care (01) ==
LOC: CHSLAB 08:15
PROVIDERS: PCP Family Medicine; Visit Provider Family Medicine
DX: R42 Dizziness and giddiness (principal); E11.9 Type 2 diabetes mellitus without complications; D50.9 Iron deficiency anemia, unspecified
CPT/HCPCS: 82272

== ENCOUNTER 2022-03-07 08:39 | Outpatient (CLI) | payer MEDICARE, SELFPAY ==
--- NOTE | ~2022-03-07 | XR_ITS ---
XR chest 2V 03/07/2022 08:54 Indication: Cough and bodyaches Procedure: PA and lateral views of the chest Comparison: Comparison to multiple prior studies sequentially, with oldest reviewed study dated 06/07. Findings: Status post median sternotomy for CABG. Heart size normal. No focal air space disease, pulm onary edema, pleural effusion or suspected pneumothorax. There is diffuse idiopathic skeletal hyperos tosis (DISH) of the thoracic spine. Impression: 1: No acute cardiopulmonary disease. Reviewed, dictated and finalized at location B. Impression: 1: No acute cardiopulmonary disease.
== END 2022-03-07 08:40 | disposition home or self-care (01) ==
LOC: CHSIMG 08:41
PROVIDERS: PCP Family Medicine; Visit Provider Family Medicine
DX: R05.9 Cough, unspecified (principal)
CPT/HCPCS: 71046

== ENCOUNTER 2022-03-14 11:10 | Outpatient (CLI) | payer MEDICARE, SELFPAY ==
--- NOTE | ~2022-03-14 | XR_ITS ---
EXAMINATION: XR chest 2V 03/14/2022 11:28 INDICATION: Cough and shortness of breath PROCEDURE: 2 view chest COMPARISON: Comparison to multiple prior studies sequentially, with oldest reviewed study dated 07/25. FINDINGS: The lungs are clear. The cardiomediastinal silhouette is within normal limits. There are no pleural effusions. There is no pneumothorax suspected. IMPRESSION: 1: NO ACUTE CARDIOPULMONARY DISEASE. Reviewed, dictated and finalized at location A.
== END 2022-03-14 11:11 | disposition home or self-care (01) ==
LOC: CHSIMG 11:12
PROVIDERS: PCP Family Medicine; Visit Provider Family Medicine
DX: J10.1 Influenza due to other identified influenza virus with other respiratory manifestations (principal); R05.9 Cough, unspecified; R06.02 Shortness of breath
CPT/HCPCS: 71046

== ENCOUNTER 2022-03-22 15:24 | Emergency (ER) | payer MEDICARE, SELFPAY ==
--- NOTE | ~2022-03-22 | XR_ITS ---
XR chest 2V DATE: 03/22/2022 16:52 INDICATION: Generalized weakness. Cough, shortness of breath. TECHNIQUE: PA and lateral views COMPARISON: 03/2022 2 view chest FINDINGS: Status post sternotomy and probable coronary bypass graft surgery. Normal heart size. No hi lar or mediastinal enlargement. No pulmonary infiltrate or consolidation, pleural effusion or pulmonary vascular congestion or pneumo thorax. Degenerative changes of the thoracic and lumbar spine. IMPRESSION: Status post sternotomy No active cardiopulmonary disease or significant change since 03/14/2022 Reviewed, dictated and finalized at location A. WARE SPECIALIST
[2022-03-22 15:39] LABS: Glucose Point of Care 136 mg/dl (65-105)
--- NOTE | 2022-03-22 16:05 | ECG_ITS ---
Measurements Intervals [place] Rate: 80 P: [place]: 0 QRS: 14 QRSD: 91 T: 93 QT: 382 QTc: 442 Interpretive Statements ATRIAL FIBRILLATION BORDERLINE ST-T WAVE ABNORMALITY- HIGH LATERAL LEADS ABNORMAL ECG COMPARED TO ECG 01/07/2020 09:29:52 HEART RATE HAS INCREASED Electronically Signed On 03-22-2022 19:53:28 SAND SYSTEM OPERATOR by Cristian Vo D.O.
[2022-03-22 16:08] VITALS: BP 147/54; PULSE 84; RESP 20; TEMP 36.6; O2SAT 99
--- NOTE | 2022-03-22 17:13 | PC.NURSE ---
Urine specimen on pt taken down to lab
[2022-03-22 17:14] VITALS: BP 121/47; PULSE 81; RESP 18; TEMP 36.7; O2SAT 99
[2022-03-22 17:33] LABS: Basophils Absolute Auto 0.01 K/mm3 (0.00-0.10); Basophils Percent Auto 0.1 % (0.0-1.0); Eosinophils Absolute Auto 0.06 K/mm3 (0.02-0.50); Eosinophils Percent Auto 0.5 % (1.0-6.0); Hematocrit 29.2 % (37.0-46.0); Hemoglobin 8.9 g/dL (12.4-15.3); Immature Granulocyte Absolute 0.06 K/mm3 (0.00-0.00); Immature Granulocyte Percent A 0.5 % (0.0-0.0); Lymphocytes Absolute Auto 0.52 K/mm3 (1.10-4.50); Lymphocytes Percent Auto 4.5 % (18.0-42.0); Mean Corpuscular HGB Conc 30.5 g/dL (32.0-36.0); Mean Corpuscular Hemoglobin 24.7 pg (27.0-31.0); Mean Corpuscular Volume 80.9 fL (78.0-102.0); Mean Platelet Volume 9.4 fl (8.7-11.0); Monocytes Absolute Auto 0.54 K/mm3 (0.10-0.90); Monocytes Percent Auto 4.7 % (2.0-11.0); Neutrophils Absolute Auto 10.4 K/mm3 (1.7-7.2); Neutrophils Percent Auto 89.7 % (50.0-70.0); Platelet Count Result 333 K/mm3 (150-420); Red Blood Count 3.61 M/mm3 (4.70-6.10); Red Cell Distribution Width 15.8 % (11.6-14.4); White Blood Count 11.6 K/mm3 (4.8-10.8)
[2022-03-22 17:34] LABS: Appearance Urine Clear (Clear); Bilirubin Urine Negative (Negative); Blood Urine Negative (Negative); Glucose Urine UA Negative (Negative); Ketones Urine Negative (Negative); Leukocyte Esterase Ur Negative LEU/UL (Negative); Nitrate Urine Negative (Negative); Protein Urine Negative (Negative)
[2022-03-22 17:39] LABS: Add Urine Microscopic? NO; Color Urine Light Yellow (Yellow)
[2022-03-22 17:48] LABS: INR 1.2; Lactic Acid Reflex 2.7 mmol/L (0.4-2.0); Partial Thromboplastin Time 28.4 SEC (23.90-30.70)
[2022-03-22 17:52] LABS: Alanine Aminotransferase 23 U/L (16-63); Albumin Level 3.1 g/dL (3.4-5.0); Alkaline Phosphatase 83 U/L (46-116); Anion Gap 7 mmol/L (8-16); Aspartate Amino Transferase 10 U/L (15-37); Bilirubin,Total 0.5 mg/dL (0.00-1.00); Blood Urea Nitrogen 24 mg/dL (7-18); Calcium 8.9 mg/dL (8.5-10.1); Carbon Dioxide 31 mmol/L (21-32); Chloride 99 mmol/L (98-108); Estimated CRCL calculation 49 ml/min; Estimated Glomerular Filt Rate 57; Glucose 139 mg/dL (70-99); NT Pro B Type Natriuretic Pept 980 pg/mL (0-125); Osmolality Calculated 290 mOsm/kg (285-295); Potassium 3.7 mmol/L (3.5-5.1); Sodium 137 mmol/L (136-145); Total Protein 7.3 g/dL (6.4-8.2); Troponin I 14.1 ng/L (0.00-60.4)
--- NOTE | 2022-03-22 18:06 | ED.WEAKNESS ---
HPI - Weakness General Chief complaint: Weakness Stated complaint: tired;weak;2-3 days now;flu about 3 weeks ago Time Seen by Provider: 03/22/22 15:27 Source: patient and family Mode of arrival: ambulatory Limitations: no limitations History of Present Illness HPI Narrative: This is a 71-year-old gentleman that presents with some weakness, has a history of CAD and is currently on blood thinners and aspirin, the patient has had a diminished H&H and is to have a workup by surgery including endoscopy. Currently there is no chest pain no shortness of breath no fever chills no nausea vomiting no abdominal pain. MD Complaint: generalized weakness Related Data Home Medications Medication Instructions Recorded Confirmed diphenhydramine 25 1 tablet PO HS PRN Sleep 01/07/20 02/20/21 mg-acetaminophen 500 mg tablet (Tylenol PM Extra Strength) irbesartan 150 mg tablet 150 mg PO BID 03/27/20 02/20/21 chlorthalidone 25 mg tablet 25 mg PO DAILY 04/03/20 02/20/21 amlodipine 5 mg tablet 2.5 mg PO BID 10/04/20 02/20/21 magnesium 200 mg tablet 200 mg PO BID 12/25/21 aspirin 81 mg tablet,delayed 81 mg PO DAILY 03/22/22 03/22/22 release loratadine 10 mg tablet (Claritin) 10 mg PO DAILY 03/22/22 03/22/22 metformin 500 mg tablet,extended 500 mg PO DAILY 03/22/22 03/22/22 release 24 hr Allergies Allergy/AdvReac Type Severity Reaction Status Date / Time No Known Allergies Allergy Verified 03/22/22 16:10 Review of Systems Review of Systems: All systems reviewed & are unremarkable except as noted in HPI and below PMFSH Past Medical History Medical History Afib BMI 32.0-32.9,adult BPH (benign prostatic hyperplasia) CAD (coronary artery disease) Coronary artery disease involving coronary bypass graft of [place] heart Dysphagia G tube feedings GERD (gastroesophageal reflux disease) Hypertension associated with diabetes Hypokalemia Lightheadedness Multinodular goiter Obesity Saddle embolus Sleep apnea Type 2 diabetes mellitus, without long-term current use of insulin Weight loss Surgical History Surgical History H/O carotid endarterectomy 06/2019 History of heart artery stent 1 stent: 03/2005 1 stent: 02/2008 3 stents: 02/2009 1 stent: 12/2013 1 stent: 09/2014 History of lumbar laminectomy 03/2016 Hx of coronary artery bypass graft S/P percutaneous endoscopic gastrostomy (PEG) tube placement Status post trigger finger release (~2018) Family History Family History Mother , mother at age 58 of [place] No problems noted. Father , father of coronary artery disease at age 55 No problems noted. Other Family history of coronary artery disease Social History Social History Smoking status: Never smoker Alcohol intake: never Alcohol use details: does not drink alcohol Substance use: never Substance use type: does not use Lack of Transportation: No Lack of Food: Never True Current Housing: I Have Housing Concerned About Future Housing: No Difficulty Paying Gas/Electric Bills: No Difficulty Paying for Meds: No Currently Unemployed: No Education: Bachelor's Degree Difficulty w/ Childcare or Family Care: No Additional living arrangements comments: Gender identity (if verbalized by the patient): Male Sexual Orientation (if Verbalized by the Patient): Straight or Heterosexual Exam Const: General: healthy appearing, no acute distress and alert Nutritional Appearance: well nourished Orientation/consciousness: patient oriented x3 HENMT: Head: normal to inspection Face and sinus: normal facial exam Mouth: Yes Normal oral and palatal mucosa present Eyes: Conjunctivae: conjunctivae normal Pupils: Equal, round and re
[2022-03-22 18:12] LABS: Influenza A QL RT-PCR Negative (Negative); Influenza B QL RT-PCR Negative (Negative); SARS-CoV-2 RNA PCR Negative (Negative)
[2022-03-22 18:17] VITALS: BP 139/62; PULSE 83; RESP 20; TEMP 36.9; O2SAT 99
--- NOTE | 2022-03-22 18:18 | PC.NURSE ---
On 03/22/22, the student, [ra clarke ], provided care and completed [facility] documentation on this patient. I have reviewed the student's documentation and agree with the findings.
== END 2022-03-22 18:23 | disposition home or self-care (01) ==
PROVIDERS: Emergency Provider Emergency Medicine; PCP Family Medicine
DX: D64.9 Anemia, unspecified (principal); Z20.822 Contact with and (suspected) exposure to COVID-19; I48.91 Unspecified atrial fibrillation; I25.10 Atherosclerotic heart disease of native coronary artery without angina pectoris; K21.9 Gastro-esophageal reflux disease without esophagitis; I10 Essential (primary) hypertension; E11.9 Type 2 diabetes mellitus without complications
CPT/HCPCS: 36415; 71046; 80053; 81003; 82948; 83605; 83880; 84484; 85025; 85610; 85730; 86140; 87502; 93005; 99284; U0003; U0005

== ENCOUNTER 2022-03-27 00:26 | Day surgery (SDC) | payer MEDICARE, SELFPAY ==
[2022-03-25 08:24] VITALS: BMI 29.4
--- NOTE | 2022-03-26 14:52 | WPDANESEPPF ---
Anes - Initial Pre Proc Eval Procedure: Operation Date: 03/27/22 07:30 Proposed Procedures p Colonoscopy - Jose Ramon Elaine DO Date/Time: 03/26/22 14:52 Surgeon: Jose Ramon Elaine DO Pre Op Diagnosis: positive occult bleed Patient Data Age: 71 Gender: M Height: 1.78 m Weight: 93 kg Allergies Allergy/AdvReac Type Severity Reaction Status Date / Time No Known Allergies Allergy Verified 03/25/22 08:24 Home Medications Medication Instructions Recorded Confirmed Type diphenhydramine 25 1 tablet PO HS PRN Sleep 01/07/20 03/25/22 History mg-acetaminophen 500 mg tablet (Tylenol PM Extra Strength) chlorthalidone 25 mg tablet 25 mg PO DAILY 04/03/20 03/25/22 History blood sugar diagnostic (Accu-Chek #100 ea 05/01/20 03/22/22 Rx Madeleine Plus test strips) magnesium 200 mg tablet 400 mg PO DAILY 12/25/21 03/25/22 History atorvastatin 80 mg tablet 80 mg PO HS #90 tabs 12/26/21 03/25/22 Rx aspirin 81 mg tablet,delayed 81 mg PO DAILY 03/22/22 03/25/22 History release loratadine 10 mg tablet (Claritin) 10 mg PO DAILY 03/22/22 03/25/22 History metformin 500 mg tablet,extended 500 mg PO QACDINNER 03/22/22 03/25/22 History release 24 hr apixaban 5 mg tablet (Eliquis) See Rx Instructions .Route 03/24/22 03/25/22 Rx .COMPLEX #180 tabs amlodipine 2.5 mg tablet 2.5 mg PO BID 03/25/22 03/25/22 History cholecalciferol (vitamin D3) 125 125 mcg PO QACDINNER 03/25/22 03/25/22 History mcg (5,000 unit) tablet (Vitamin D3) famotidine 40 mg tablet 40 mg PO DAILY 03/25/22 03/25/22 History fluticasone propionate 50 2 spray intranasal HS PRN Allergy 03/25/22 03/25/22 History mcg/actuation nasal Symptoms spray,suspension irbesartan 300 mg tablet 150 mg PO BID 03/25/22 03/25/22 History omeprazole 40 mg capsule,delayed 40 mg PO HS 03/25/22 03/25/22 History release Patient hx anesthesia problems: none Family hx anesthesia problems: none Results Review: All pre-operative results and documents have been reviewed as part of the pre-operative evaluation. FORMERLY [facility] Past Medical History Medical History Afib BMI 32.0-32.9,adult BPH (benign prostatic hyperplasia) CAD (coronary artery disease) Coronary artery disease involving coronary bypass graft of [place] heart Dysphagia G tube feedings GERD (gastroesophageal reflux disease) Hypertension associated with diabetes Hypokalemia Lightheadedness Multinodular goiter Obesity Saddle embolus Sleep apnea Type 2 diabetes mellitus, without long-term current use of insulin Weight loss Surgical History Surgical History H/O carotid endarterectomy 06/2019 History of heart artery stent 1 stent: 03/2005 1 stent: 02/2008 3 stents: 02/2009 1 stent: 12/2013 1 stent: 09/2014 History of lumbar laminectomy 03/2016 Hx of coronary artery bypass graft S/P percutaneous endoscopic gastrostomy (PEG) tube placement Status post trigger finger release (~2017) Family History Family History Mother , mother at age 58 of [place] No problems noted. Father , father of coronary artery disease at age 55 No problems noted. Other Family history of coronary artery disease Social History Social History Smoking status: Never smoker Alcohol intake: former Alcohol use details: does not drink alcohol Substance use: never Substance use type: does not use Lack of Transportation: No Lack of Food: Never True Current Housing: I Have Housing Concerned About Future Housing: No Difficulty Paying Gas/Electric Bills: No Difficulty Paying for Meds: No Currently Unemployed: No Education: Bachelor's Degree Difficulty w/ Childcare or Family Care: No Living arrangements: with family Yancy chou
[2022-03-27 06:20] VITALS: BP 154/62; PULSE 75; RESP 18; TEMP 36.6; O2SAT 100; BMI 28.7
[2022-03-27 06:35] LABS: Glucose Point of Care 132 mg/dl (65-105)
[2022-03-27] MEDS: LACTATED RINGERS 1,000 ML 150 ML IV CONT (06:47)
--- NOTE | 2022-03-27 07:27 | PM.IMHP ---
H&P: HPI History of Present Illness Date/Time: 03/27/22 07:27 Chief Complaint: Positive occult blood test Narrative: 71-year-old man presents for colonoscopy. He has had anemia and a positive occult blood test. He has never had a colonoscopy before. He does report a history of gastritis or ulcer many years ago but denies any problems with acid reflux or heartburn. Does take Eliquis for AFib and history cardiac stents. Review of Systems Review of Systems: All systems reviewed & are unremarkable except as noted in HPI and below Constitutional: Constitutional: Denies chills, Denies fever(s), Denies headache(s) and Denies weight loss Eyes: Eyes: Denies change in vision ENT: Denies dizziness, Denies headache(s), Denies neck mass and Denies throat swelling Cardiovascular: Cardiovascular: Denies chest pain, Denies lightheadedness and Denies dyspnea Respiratory: Respiratory: Denies cough, Denies dyspnea and Denies wheezing Gastrointestinal: Gastrointestinal: Denies abdominal pain, Denies change in bowel habits, Denies nausea and Denies vomiting Genitourinary: Genitourinary: Denies hematuria and Denies dysuria Musculoskeletal: Musculoskeletal: Reports as per HPI Integumentary/Breasts: Skin/Breast: Reports as per HPI Neurologic: Denies dizziness and Denies headache(s) Allergic/Immunologic: Allergic/Immunologic: Denies throat swelling and Denies wheezing PMF Past Medical History Medical History Afib BMI 32.0-32.9,adult BPH (benign prostatic hyperplasia) CAD (coronary artery disease) Coronary artery disease involving coronary bypass graft of [place] heart Dysphagia G tube feedings GERD (gastroesophageal reflux disease) Hypertension associated with diabetes Hypokalemia Lightheadedness Multinodular goiter Obesity Saddle embolus Sleep apnea Type 2 diabetes mellitus, without long-term current use of insulin Weight loss Surgical History Surgical History H/O carotid endarterectomy 06/2019 History of heart artery stent 1 stent: 03/2005 1 stent: 02/2008 3 stents: 02/2009 1 stent: 12/2013 1 stent: 09/2014 History of lumbar laminectomy 03/2016 Hx of coronary artery bypass graft S/P percutaneous endoscopic gastrostomy (PEG) tube placement Status post trigger finger release (~2018) Family History Family History Mother , mother at age 58 of [place] No problems noted. Father , father of coronary artery disease at age 55 No problems noted. Other Family history of coronary artery disease Social History Social History Smoking status: Never smoker Alcohol intake: former Alcohol use details: does not drink alcohol Substance use: never Substance use type: does not use Lack of Transportation: No Lack of Food: Never True Current Housing: I Have Housing Concerned About Future Housing: No Difficulty Paying Gas/Electric Bills: No Difficulty Paying for Meds: No Currently Unemployed: No Education: Bachelor's Degree Difficulty w/ Childcare or Family Care: No Living arrangements: with family Additional living arrangements comments: Gender identity (if verbalized by the patient): Male Sexual Orientation (if Verbalized by the Patient): Straight or Heterosexual Spiritual care concerns: No Meds Home Medications and Allergies Home Medications Medication Instructions Recorded Confirmed Type diphenhydramine 25 1 tablet PO HS PRN Sleep 01/07/20 03/25/22 History mg-acetaminophen 500 mg tablet (Tylenol PM Extra Strength) chlorthalidone 25 mg tablet 25 mg PO DAILY 04/03/20 03/25/22 History blood sugar diagnostic (Accu-Chek #100 ea 05/01/20 03/22/22 Rx Madeleine Plus test strips) magnesium 200 mg tablet 400 m
[2022-03-27 08:28] VITALS: BP 92/67; PULSE 69; RESP 25; O2SAT 100
[2022-03-27 08:38] VITALS: BP 103/41; PULSE 60; RESP 14; O2SAT 100
[2022-03-27 08:48] VITALS: BP 121/51; PULSE 58; RESP 19; O2SAT 100
== END 2022-03-27 09:12 | disposition home or self-care (01) ==
PROVIDERS: PCP Family Medicine; Visit Provider Surgery
PROC: 0DJD8ZZ Inspection of Lower Intestinal Tract, Via Natural or Artificial Opening Endoscopic (ICD-10-PCS; CPT 45378; principal; 2022-03-27 07:30)
DX: R19.5 Other fecal abnormalities (principal); D12.3 Benign neoplasm of transverse colon; K57.30 Diverticulosis of large intestine without perforation or abscess without bleeding; I48.91 Unspecified atrial fibrillation; I25.10 Atherosclerotic heart disease of native coronary artery without angina pectoris; I25.810 Atherosclerosis of coronary artery bypass graft(s) without angina pectoris; I10 Essential (primary) hypertension; E11.9 Type 2 diabetes mellitus without complications; G47.30 Sleep apnea, unspecified; N40.0 Benign prostatic hyperplasia without lower urinary tract symptoms; K21.9 Gastro-esophageal reflux disease without esophagitis; Z93.1 Gastrostomy status; Z95.5 Presence of coronary angioplasty implant and graft; Z79.01 Long term (current) use of anticoagulants; Z79.82 Long term (current) use of aspirin; Z79.84 Long term (current) use of oral hypoglycemic drugs; E66.9 Obesity, unspecified; Z68.28 Body mass index [BMI] 28.0-28.9, adult
CPT/HCPCS: 45385; 82948; 88305; J2405; J2704; J7120

== ENCOUNTER 2022-04-09 09:34 | Outpatient (CLI) | payer MEDICARE, SELFPAY ==
[2022-04-09 09:54] LABS: Hematocrit 27.5 % (37.0-46.0); Hemoglobin 8.3 g/dL (12.4-15.3); Mean Corpuscular HGB Conc 30.2 g/dL (32.0-36.0); Mean Corpuscular Hemoglobin 24.1 pg (27.0-31.0); Mean Corpuscular Volume 79.7 fL (78.0-102.0); Mean Platelet Volume 9.1 fl (8.7-11.0); Platelet Count Result 206 K/mm3 (150-420); Red Blood Count 3.45 M/mm3 (4.70-6.10); Red Cell Distribution Width 16.1 % (11.6-14.4); White Blood Count 6.7 K/mm3 (4.8-10.8)
[2022-04-09 10:17] LABS: Hemoglobin A1C 7.1 % (<5.7)
[2022-04-09 10:29] LABS: Cholesterol 118 mg/dL (0-200); HDL Direct 46 mg/dL (40-60); LDL Cholesterol Calculated 46 mg/dL (<130); Triglycerides 128 mg/dL (0-150)
== END 2022-04-09 09:35 | disposition home or self-care (01) ==
LOC: CHSLAB 09:36
PROVIDERS: PCP Family Medicine; Visit Provider Family Medicine
DX: D50.9 Iron deficiency anemia, unspecified (principal); E11.9 Type 2 diabetes mellitus without complications
CPT/HCPCS: 36415; 80061; 83036; 85027

== ENCOUNTER 2022-04-09 10:45 | Emergency (ER) | payer MEDICARE, SELFPAY ==
--- NOTE | ~2022-04-09 | CT_ITS ---
EXAMINATION: CT abdomen pelvis wo con DATE: 04/09/2022 11:26 INDICATION: Abdominal cramping, nausea, diarrhea. Gastrointestinal bleeding. History of colonoscopy 2 weeks ago with 2 reportedly benign biopsies. TECHNIQUE: Computed tomography (CT) of the abdomen and pelvis was performed without intravenous contr ast. Automated exposure control and iterative reconstruction technique were employed. Exam dose: 957 .85 mGy-cm total exam DLP. COMPARISON: 10/04/2020 CT abdomen pelvis FINDINGS: Left lower lobe calcified pulmonary granuloma and multiple calcified splenic granulomas, co nsistent with old granulomatous disease. The lung bases are clear of infiltrate or consolidation. Heart size is within normal range. No pericardial or pleural effusion. Small sliding hiatal hernia. The liver, gallbladder, bile ducts, spleen, pancreas, adrenal glands and kidneys are unremarkable on this limited noncontrast examination with the exception of probable very slight nonobstructive bilate ral nephrolithiasis. No ureteral calculus or hydroureteronephrosis. There is nonspecific moderate thi ckening of the urinary bladder wall which may be due to under distention versus cystitis. Status post prostatectomy. There is extensive atherosclerotic calcification of the abdominal aorta and calcification at the orig ins of celiac and superior mesenteric and renal arteries as well as inferior mesenteric artery. No ab dominal aortic aneurysm. There is calcification of the iliac and femoral arteries. No intraperitoneal or retroperitoneal or pelvic mass lesion or adenopathy or ascites. Normal appendix. Minimal sigmoid diverticulosis; no CT evidence of diverticulitis. No bowel obstruction, bowel wall t hickening, pneumatosis or intraperitoneal free air. Diffuse hepatic skeletal hyperostosis of the thoracic and lumbar spine. Multilevel degenerative disc disease of the lumbar spine. Prominent degenerative change at the apophyseal joints in the lumbar are a, without spondylolisthesis. Bilateral hip osteoarthritis. No suspicious osteolytic or osteoblastic lesions. Small fat-containing umbilical hernia. IMPRESSION: Small sliding hiatal hernia Normal appendix Minimal colonic diverticulosis; no evidence of diverticulitis No bowel obstruction or free air Reviewed, dictated and finalized at [facility]. Reviewed, dictated and finalized at [facility]. BUSTER
[2022-04-09 10:50] VITALS: BP 142/54; PULSE 76; RESP 16; TEMP 36.6; O2SAT 100
[2022-04-09 11:20] VITALS: BP 142/60; PULSE 93
[2022-04-09 11:22] VITALS: BP 136/55; PULSE 66
[2022-04-09 11:22] LABS: Basophils Absolute Auto 0.02 K/mm3 (0.00-0.10); Basophils Percent Auto 0.3 % (0.0-1.0); Eosinophils Absolute Auto 0.18 K/mm3 (0.02-0.50); Eosinophils Percent Auto 2.7 % (1.0-6.0); Hematocrit 26.2 % (37.0-46.0); Immature Granulocyte Absolute 0.03 K/mm3 (0.00-0.00); Immature Granulocyte Percent A 0.4 % (0.0-0.0); Lymphocytes Absolute Auto 0.65 K/mm3 (1.10-4.50); Lymphocytes Percent Auto 9.6 % (18.0-42.0); Mean Corpuscular HGB Conc 30.5 g/dL (32.0-36.0); Mean Corpuscular Hemoglobin 24.3 pg (27.0-31.0); Mean Corpuscular Volume 79.6 fL (78.0-102.0); Monocytes Absolute Auto 0.48 K/mm3 (0.10-0.90); Monocytes Percent Auto 7.1 % (2.0-11.0); Neutrophils Absolute Auto 5.4 K/mm3 (1.7-7.2); Neutrophils Percent Auto 79.9 % (50.0-70.0); Platelet Count Result 199 K/mm3 (150-420); Red Blood Count 3.29 M/mm3 (4.70-6.10); White Blood Count 6.7 K/mm3 (4.8-10.8)
[2022-04-09 11:23] VITALS: BP 140/62; PULSE 78
[2022-04-09 11:25] LABS: Appearance Urine Clear (Clear); Bilirubin Urine Negative (Negative); Glucose Urine UA Negative (Negative); Ketones Urine Negative (Negative); Leukocyte Esterase Ur Negative (Negative); Nitrate Urine Negative (Negative); Protein Urine Negative (Negative); Specific Grav Ur 1.015 (1.010-1.020); Urobilinogen Urine 0.2 mg/dL (0.2-1.0)
[2022-04-09 11:31] LABS: Occult Blood Positive (Negative)
[2022-04-09 11:33] LABS: Color Urine Light Yellow (Yellow)
[2022-04-09 11:34] LABS: Add Urine Microscopic? YES; Bacteria Urine Trace /hpf; Blood Urine Trace-lysed (Negative); RBC Urine 0-2 /hpf (0-2); WBC Urine None seen /hpf (0-3)
[2022-04-09 11:38] LABS: Alanine Aminotransferase 17 U/L (16-63); Albumin Level 3.3 g/dL (3.4-5.0); Alkaline Phosphatase 90 U/L (46-116); Anion Gap 8 mmol/L (8-16); Aspartate Amino Transferase 12 U/L (15-37); Bilirubin,Total 0.4 mg/dL (0.00-1.00); Blood Urea Nitrogen 23 mg/dL (7-18); Calcium 8.6 mg/dL (8.5-10.1); Carbon Dioxide 29 mmol/L (21-32); Chloride 101 mmol/L (98-108); Estimated Glomerular Filt Rate > 60; Glucose 174 mg/dL (70-99); INR 1.2; Lipase 211 U/L (73-393); Magnesium 1.5 mg/dL (1.8-2.4); Osmolality Calculated 293 mOsm/kg (285-295); Partial Thromboplastin Time 29.9 SEC (23.90-30.70); Potassium 3.8 mmol/L (3.5-5.1); Prothrombin Time 12.6 Seconds (9.50-12.10); Sodium 138 mmol/L (136-145); Total Protein 6.8 g/dL (6.4-8.2)
[2022-04-09 11:41] LABS: Lactic Acid Reflex 1.7 mmol/L (0.4-2.0)
[2022-04-09] MEDS: SODIUM CHLORIDE 0.9% IV 1,000 ML 999 ML IV CONT (11:50)
[2022-04-09] MEDS: ONDANSETRON INJ 4 MG/2 ML VIAL IV PUSH (11:52)
[2022-04-09] MEDS: PANTOPRAZOLE SODIUM IV 40 MG VIAL IV PUSH (11:52)
--- NOTE | 2022-04-09 12:03 | PC.NURSE ---
[address] negron for rectal exam.
--- NOTE | 2022-04-09 13:16 | ED.GIBLEED ---
HPI - GI Bleed General Chief complaint: GI Bleed Stated complaint: Diarrhea with Bright Red blood Time Seen by Provider: 04/09/22 10:48 Source: patient and RN notes reviewed Mode of arrival: ambulatory Limitations: no limitations History of Present Illness MD complaint: blood on toilet paper Onset (ago): hour(s) (1) Pain Consistency: other (pain-free) Relieving factors: none Exacerbating factors: none Context: other (diverticulosis) Treatments Prior to Arrival: none Related Data Home Medications Medication Instructions Recorded Confirmed chlorthalidone 25 mg tablet 25 mg PO DAILY 04/03/20 04/09/22 magnesium 200 mg tablet 400 mg PO DAILY 12/25/21 04/09/22 aspirin 81 mg tablet,delayed 81 mg PO DAILY 03/22/22 04/09/22 release loratadine 10 mg tablet (Claritin) 10 mg PO DAILY 03/22/22 04/09/22 metformin 500 mg tablet,extended 500 mg PO QACDINNER 03/22/22 04/09/22 release 24 hr amlodipine 2.5 mg tablet 2.5 mg PO BID 03/25/22 04/09/22 cholecalciferol (vitamin D3) 125 125 mcg PO QACDINNER 03/25/22 04/09/22 mcg (5,000 unit) tablet (Vitamin D3) famotidine 40 mg tablet 40 mg PO DAILY 03/25/22 04/09/22 fluticasone propionate 50 2 spray intranasal HS PRN Allergy 03/25/22 04/09/22 mcg/actuation nasal Symptoms spray,suspension irbesartan 300 mg tablet 150 mg PO BID 03/25/22 04/09/22 omeprazole 40 mg capsule,delayed 40 mg PO HS 03/25/22 04/09/22 release Allergies Allergy/AdvReac Type Severity Reaction Status Date / Time No Known Allergies Allergy Verified 04/08/22 06:44 Review of Systems Review of Systems: All systems reviewed & are unremarkable except as noted in HPI and below Constitutional: Constitutional: Reports no additional constitutional complaints Eyes: Eyes: Reports no additional eye complaints ENT: Reports system reviewed and no additional complaints, except as documented Cardiovascular: Cardiovascular: Reports no additional cardiovascular complaints Respiratory: Respiratory: Reports no additional respiratory complaints Gastrointestinal: Gastrointestinal: Reports no additional gastrointestinal complaints Musculoskeletal: Musculoskeletal: Reports no additional musculoskeletal complaints Integumentary/Breasts: Skin/Breast: Reports system reviewed and no additional complaints, except as docu Neurologic: Reports system reviewed and no additional complaints, except as documented Psychiatric: Psychiatric: Reports no additional psychiatric complaints Endocrine: Endocrine: Reports no additional endocrine complaints Hematologic/Lymphatic: Hematologic/Lymphatic: Reports no additional hematologic/lymphatic complaints Allergic/Immunologic: Allergic/Immunologic: Reports no additional allergic/immunologic complaints PMFSH Past Medical History Medical History Afib BMI 32.0-32.9,adult BPH (benign prostatic hyperplasia) CAD (coronary artery disease) Coronary artery disease involving coronary bypass graft of [place] heart Diverticulosis Dysphagia G tube feedings GERD (gastroesophageal reflux disease) Hypertension associated with diabetes Hypokalemia Lightheadedness Multinodular goiter Obesity Saddle embolus Sleep apnea Type 2 diabetes mellitus, without long-term current use of insulin Weight loss Surgical History Surgical History H/O carotid endarterectomy 06/2019 History of heart artery stent 1 stent: 03/2005 1 stent: 02/2008 3 stents: 02/2009 1 stent: 12/2013 1 stent: 09/2014 History of lumbar laminectomy 03/2016 Hx of coronary artery bypass graft S/P percutaneous endoscopic gastrostomy (PEG) tube placement Status post trigger finger release (~2017) Family History Family History Mother , mother at age 58 of [place] No problems noted. Father , father of coronary artery disease at a
[2022-04-09 13:52] VITALS: BP 122/57; PULSE 84; RESP 17; O2SAT 99
== END 2022-04-09 14:00 | disposition home or self-care (01) ==
PROVIDERS: Emergency Provider Emergency Medicine; PCP Family Medicine
DX: K60.2 Anal fissure, unspecified (principal); D64.9 Anemia, unspecified; I48.91 Unspecified atrial fibrillation; I25.10 Atherosclerotic heart disease of native coronary artery without angina pectoris; K21.9 Gastro-esophageal reflux disease without esophagitis; E11.9 Type 2 diabetes mellitus without complications
CPT/HCPCS: 36415; 74176; 80053; 81001; 83605; 83690; 83735; 85025; 85610; 85730; 96361; 96374; 96375; 99284; C9113; J2405; J7030

== ENCOUNTER 2022-04-29 07:59 | Outpatient (CLI) | payer MEDICARE, SELFPAY ==
[2022-04-29] VITALS (10 sets, daily range): BP systolic 96–119; BP diastolic 41–65; PULSE 65–78; RESP 20; TEMP 36–36.3; O2SAT 98–100
[2022-04-29 08:19] LABS: Hematocrit 21.2 % (37.0-46.0)
[2022-04-29 08:21] LABS: Hemoglobin 6.2 g/dL (12.4-15.3)
--- NOTE | 2022-04-29 09:00 | PC.NURSE ---
Pt to room 201 amb per self. A&Ox3. Complains of feeling weak and tired. Skin pale. Up in chair, oriented to room. Call marroquin in reach. Reminded to call with needs.
--- NOTE | 2022-04-29 09:29 | PC.NURSE ---
Addendum entered by Adelaida Santillan RN 04/29/22 09:33: Blood transfusion started at rate of 100ml/hour. Pt tolerating well. Has no complaints. Original Note: Blood transfusion started. Pt tolerating well. Has no complaints.
--- NOTE | 2022-04-29 10:20 | PC.NURSE ---
Rate increased to 125ml/hour. Pt watching TV. Has no complaints.
--- NOTE | 2022-04-29 11:47 | PC.NURSE ---
RAte increased to 180ml/hour.
--- NOTE | 2022-04-29 12:05 | PC.NURSE ---
First unit transfused without difficulty. NS started to clear the line. Pt eating lunch without complaint.
[2022-04-29 12:29] LABS: Hemoglobin 7.3 g/dL (12.4-15.3)
--- NOTE | 2022-04-29 12:37 | PC.NURSE ---
Second unit PRBC's started. See TAR. Pt ate 100% of lunch without complaint.
--- NOTE | 2022-04-29 14:30 | PC.NURSE ---
Blood rate increased to 180ml/hour
--- NOTE | 2022-04-29 15:11 | PC.NURSE ---
2nd unit PRBC's infused. Pt tolerated well. NS running to clear line.
--- NOTE | 2022-04-29 15:43 | PC.NURSE ---
Blood tubing cleared. NS stopped. Lab drawing post transfusion H&H.
--- NOTE | 2022-04-29 15:52 | PC.NURSE ---
Pt discharged to home amb without complaint.
[2022-04-29 15:53] LABS: Hematocrit 27.7 % (37.0-46.0); Hemoglobin 8.6 g/dL (12.4-15.3)
== END 2022-04-29 08:00 | disposition home or self-care (01) ==
PROVIDERS: PCP Family Medicine; Visit Provider Specialist
DX: D64.9 Anemia, unspecified (principal); R06.02 Shortness of breath
CPT/HCPCS: 36415; 36430; 85014; 85018; 86850; 86900; 86901; 86920; P9016

== ENCOUNTER 2022-04-30 15:45 | Outpatient (CLI) | payer MEDICARE, SELFPAY ==
[2022-04-30 15:59] LABS: Basophils Absolute Auto 0.02 K/mm3 (0.00-0.10); Basophils Percent Auto 0.3 % (0.0-1.0); Eosinophils Percent Auto 2.7 % (1.0-6.0); Hematocrit 27.8 % (37.0-46.0); Hemoglobin 8.5 g/dL (12.4-15.3); Immature Granulocyte Absolute 0.02 K/mm3 (0.00-0.00); Immature Granulocyte Percent A 0.3 % (0.0-0.0); Lymphocytes Absolute Auto 0.66 K/mm3 (1.10-4.50); Mean Corpuscular HGB Conc 30.6 g/dL (32.0-36.0); Mean Corpuscular Hemoglobin 24.5 pg (27.0-31.0); Mean Corpuscular Volume 80.1 fL (78.0-102.0); Mean Platelet Volume 8.9 fl (8.7-11.0); Monocytes Absolute Auto 0.66 K/mm3 (0.10-0.90); Neutrophils Absolute Auto 5.8 K/mm3 (1.7-7.2); Neutrophils Percent Auto 78.7 % (50.0-70.0); Platelet Count Result 215 K/mm3 (150-420); Red Blood Count 3.47 M/mm3 (4.70-6.10); Red Cell Distribution Width 17.5 % (11.6-14.4); White Blood Count 7.4 K/mm3 (4.8-10.8)
[2022-04-30 17:55] LABS: Ferritin 29 ng/mL (26-388); Folic Acid 8.8 ng/mL (8.6->20); Iron 18 ug/dL (65-175); Percent Iron Saturation 5 % (12-57); Vitamin B12 335 pg/mL (193-986)
== END 2022-04-30 15:46 | disposition home or self-care (01) ==
LOC: CHSLAB 15:46
PROVIDERS: PCP Family Medicine; Visit Provider Family Medicine
DX: E53.8 Deficiency of other specified B group vitamins (principal); D50.9 Iron deficiency anemia, unspecified
CPT/HCPCS: 36415; 82607; 82728; 82746; 83540; 83550; 85025

== ENCOUNTER 2022-05-01 07:39 | Outpatient (CLI) | payer MEDICARE, SELFPAY ==
[2022-05-01 08:02] LABS: Occult Blood Positive (Negative)
== END 2022-05-01 07:40 | disposition home or self-care (01) ==
LOC: CHSLAB 07:40
PROVIDERS: PCP Family Medicine; Visit Provider Family Medicine
DX: D50.9 Iron deficiency anemia, unspecified (principal); R19.7 Diarrhea, unspecified
CPT/HCPCS: 82272

== ENCOUNTER 2022-05-13 10:20 | Outpatient (CLI) | payer MEDICARE, SELFPAY ==
[2022-05-13 10:35] LABS: Hematocrit 28.4 % (37.0-46.0); Hemoglobin 8.4 g/dL (12.4-15.3); Mean Corpuscular HGB Conc 29.6 g/dL (32.0-36.0); Mean Corpuscular Hemoglobin 24.1 pg (27.0-31.0); Mean Corpuscular Volume 81.6 fL (78.0-102.0); Mean Platelet Volume 9.1 fl (8.7-11.0); Platelet Count Result 170 K/mm3 (150-420); Red Blood Count 3.48 M/mm3 (4.70-6.10); Red Cell Distribution Width 19.6 % (11.6-14.4); White Blood Count 5.1 K/mm3 (4.8-10.8)
== END 2022-05-13 10:21 | disposition home or self-care (01) ==
LOC: CHSLAB 10:22
PROVIDERS: PCP Family Medicine; Visit Provider Family Medicine
DX: D50.9 Iron deficiency anemia, unspecified (principal)
CPT/HCPCS: 36415; 85027

== ENCOUNTER 2022-05-22 01:07 | Day surgery (SDC) | payer MEDICARE, SELFPAY ==
[2022-05-07 12:06] VITALS: BMI 30.2
--- NOTE | 2022-05-21 09:30 | WPDANESEPPF ---
Anes - Initial Pre Proc Eval Procedure: Operation Date: 05/22/22 09:45 Proposed Procedures p Esophagogastroduodenoscopy - Jose Ramon Elaine DO Date/Time: 05/21/22 09:30 Surgeon: Jose Ramon Elaine DO Pre Op Diagnosis: Anemia Patient Data Age: 71 Gender: M Height: 1.78 m Weight: 95.5 kg Allergies Allergy/AdvReac Type Severity Reaction Status Date / Time No Known Allergies Allergy Verified 05/22/22 08:46 Home Medications Medication Instructions Recorded Confirmed Type chlorthalidone 25 mg tablet 25 mg PO DAILY 04/03/20 05/21/22 History blood sugar diagnostic (Accu-Chek #100 ea 05/01/20 05/21/22 Rx Madeleine Plus test strips) magnesium 200 mg tablet 400 mg PO DAILY 12/25/21 05/21/22 History atorvastatin 80 mg tablet 80 mg PO HS #90 tabs 12/26/21 05/21/22 Rx aspirin 81 mg tablet,delayed 81 mg PO DAILY 03/22/22 05/21/22 History release loratadine 10 mg tablet (Claritin) 10 mg PO DAILY 03/22/22 05/21/22 History apixaban 5 mg tablet (Eliquis) See Rx Instructions .Route 03/24/22 05/21/22 Rx .COMPLEX #180 tabs amlodipine 2.5 mg tablet 2.5 mg PO BID 03/25/22 05/21/22 History cholecalciferol (vitamin D3) 125 125 mcg PO QACDINNER 03/25/22 05/21/22 History mcg (5,000 unit) tablet (Vitamin D3) famotidine 40 mg tablet 40 mg PO DAILY 03/25/22 05/21/22 History fluticasone propionate 50 2 spray intranasal HS PRN Allergy 03/25/22 05/21/22 History mcg/actuation nasal Symptoms spray,suspension irbesartan 300 mg tablet 150 mg PO BID 03/25/22 05/21/22 History omeprazole 40 mg capsule,delayed 40 mg PO HS 03/25/22 05/21/22 History release omeprazole magnesium 20 mg 20 mg PO BID #20 tabs 04/09/22 05/21/22 Rx tablet,delayed release (Prilosec OTC) metformin 500 mg tablet,extended 500 mg PO QACDINNER #90 tabs 05/08/22 05/22/22 Rx release 24 hr azithromycin 250 mg tablet See Rx Instructions PO DAILY #6 05/20/22 05/22/22 Rx tabs Patient hx anesthesia problems: none Family hx anesthesia problems: none Results Review: All pre-operative results and documents have been reviewed as part of the pre-operative evaluation. FORMERLY [facility] Past Medical History Medical History Afib BMI 32.0-32.9,adult BPH (benign prostatic hyperplasia) CAD (coronary artery disease) Coronary artery disease involving coronary bypass graft of [place] heart Diverticulosis Dysphagia G tube feedings GERD (gastroesophageal reflux disease) Hypertension associated with diabetes Hypokalemia Lightheadedness Multinodular goiter Obesity Saddle embolus Sleep apnea Type 2 diabetes mellitus, without long-term current use of insulin Weight loss Surgical History Surgical History H/O carotid endarterectomy 06/2019 History of heart artery stent 1 stent: 03/2005 1 stent: 02/2008 3 stents: 02/2009 1 stent: 12/2013 1 stent: 09/2014 History of lumbar laminectomy 03/2016 Hx of coronary artery bypass graft x7, 1993 S/P percutaneous endoscopic gastrostomy (PEG) tube placement Status post trigger finger release (~2018) Family History Family History Mother , mother at age 58 of [place] No problems noted. Father , father of coronary artery disease at age 55 No problems noted. Other Family history of coronary artery disease Social History Social History Smoking status: Never smoker Alcohol intake: former Alcohol use details: does not drink alcohol Substance use: never Substance use type: does not use Lack of Transportation: No Lack of Food: Never True Current Housing: I Have Housing Concerned About Future Housing: No Difficulty Paying Gas/Electric Bills: No Difficulty Paying for Meds: No Currently Unemployed: No Education: Bachelor's Degree
[2022-05-22 08:47] VITALS: BP 140/62; PULSE 79; RESP 18; TEMP 36.2; O2SAT 100
[2022-05-22] MEDS: LACTATED RINGERS 1,000 ML 150 ML IV CONT (09:00)
[2022-05-22 09:01] LABS: Glucose Point of Care 124 mg/dl (65-105)
--- NOTE | 2022-05-22 09:40 | PM.IMHP ---
H&P: HPI History of Present Illness Date/Time: 05/22/22 09:40 Chief Complaint: anemia, occult positive stool Narrative: 71-year-old man presents for EGD. He has had anemia and positive occult blood stool. He had a colonoscopy 2 months ago which was normal. He continues to have anemia. He denies any epigastric pain but does take omeprazole twice daily. He is on Eliquis for history of multiple stents And AFib. Review of Systems Review of Systems: All systems reviewed & are unremarkable except as noted in HPI and below Constitutional: Constitutional: Denies chills, Denies fever(s), Denies headache(s) and Denies weight loss Eyes: Eyes: Denies change in vision ENT: Denies dizziness, Denies headache(s), Denies neck mass and Denies throat swelling Cardiovascular: Cardiovascular: Denies chest pain, Denies lightheadedness and Denies dyspnea Respiratory: Respiratory: Denies cough, Denies dyspnea and Denies wheezing Gastrointestinal: Gastrointestinal: Denies abdominal pain, Denies change in bowel habits, Denies nausea and Denies vomiting Genitourinary: Genitourinary: Denies hematuria and Denies dysuria Musculoskeletal: Musculoskeletal: Reports as per HPI Integumentary/Breasts: Skin/Breast: Reports as per HPI Neurologic: Denies dizziness and Denies headache(s) Allergic/Immunologic: Allergic/Immunologic: Denies throat swelling and Denies wheezing PMFSH Past Medical History Medical History Afib BMI 32.0-32.9,adult BPH (benign prostatic hyperplasia) CAD (coronary artery disease) Coronary artery disease involving coronary bypass graft of [place] heart Diverticulosis Dysphagia G tube feedings GERD (gastroesophageal reflux disease) Hypertension associated with diabetes Hypokalemia Lightheadedness Multinodular goiter Obesity Saddle embolus Sleep apnea Type 2 diabetes mellitus, without long-term current use of insulin Weight loss Surgical History Surgical History H/O carotid endarterectomy 06/2019 History of heart artery stent 1 stent: 03/2005 1 stent: 02/2008 3 stents: 02/2009 1 stent: 12/2013 1 stent: 09/2014 History of lumbar laminectomy 03/2016 Hx of coronary artery bypass graft x7, 1993 S/P percutaneous endoscopic gastrostomy (PEG) tube placement Status post trigger finger release (~2018) Family History Family History Mother , mother at age 58 of [place] No problems noted. Father , father of coronary artery disease at age 55 No problems noted. Other Family history of coronary artery disease Social History Social History Smoking status: Never smoker Alcohol intake: former Alcohol use details: does not drink alcohol Substance use: never Substance use type: does not use Lack of Transportation: No Lack of Food: Never True Current Housing: I Have Housing Concerned About Future Housing: No Difficulty Paying Gas/Electric Bills: No Difficulty Paying for Meds: No Currently Unemployed: No Education: Bachelor's Degree Difficulty w/ Childcare or Family Care: No Living arrangements: with family Additional living arrangements comments: Gender identity (if verbalized by the patient): Male Sexual Orientation (if Verbalized by the Patient): Straight or Heterosexual Spiritual care concerns: No Meds Home Medications and Allergies Home Medications Medication Instructions Recorded Confirmed Type chlorthalidone 25 mg tablet 25 mg PO DAILY 04/03/20 05/21/22 History blood sugar diagnostic (Accu-Chek #100 ea 05/01/20 05/21/22 Rx Madeleine Plus test strips) magnesium 200 mg tablet 400 mg PO DAILY 12/25/21 05/21/22 History atorvastatin 80 mg tablet 80 mg PO HS #90 tabs 12/26/21 05/21/22 Rx aspirin 81 mg tablet,
[2022-05-22 10:06] VITALS: BP 122/55; PULSE 78; RESP 27; O2SAT 100
[2022-05-22 10:16] VITALS: BP 113/58; PULSE 66; RESP 13; O2SAT 100
[2022-05-22 10:26] VITALS: BP 131/66; PULSE 70; RESP 17; O2SAT 98
== END 2022-05-22 10:36 | disposition home or self-care (01) ==
PROVIDERS: PCP Family Medicine; Visit Provider Surgery
PROC: 0DJ08ZZ Inspection of Upper Intestinal Tract, Via Natural or Artificial Opening Endoscopic (ICD-10-PCS; CPT 43235; principal; 2022-05-22 09:45)
DX: R19.5 Other fecal abnormalities (principal); D50.9 Iron deficiency anemia, unspecified; K31.7 Polyp of stomach and duodenum; I48.91 Unspecified atrial fibrillation; I25.10 Atherosclerotic heart disease of native coronary artery without angina pectoris; N40.0 Benign prostatic hyperplasia without lower urinary tract symptoms; E11.9 Type 2 diabetes mellitus without complications; I10 Essential (primary) hypertension; G47.30 Sleep apnea, unspecified; Z86.711 Personal history of pulmonary embolism; Z95.5 Presence of coronary angioplasty implant and graft; Z95.1 Presence of aortocoronary bypass graft; Z79.82 Long term (current) use of aspirin; Z79.84 Long term (current) use of oral hypoglycemic drugs; Z79.01 Long term (current) use of anticoagulants; E66.9 Obesity, unspecified; Z68.30 Body mass index [BMI] 30.0-30.9, adult
CPT/HCPCS: 43239; 82948; 88305; J2704; J7120

== ENCOUNTER 2022-06-30 10:32 | Outpatient (CLI) | payer MEDICARE, SELFPAY ==
[2022-06-30 10:46] LABS: Hematocrit 31.9 % (37.0-46.0); Hemoglobin 9.4 g/dL (12.4-15.3); Mean Corpuscular HGB Conc 29.5 g/dL (32.0-36.0); Mean Corpuscular Volume 81.4 fL (78.0-102.0); Mean Platelet Volume 9.1 fl (8.7-11.0); Platelet Count Result 187 K/mm3 (150-420); Red Blood Count 3.92 M/mm3 (4.70-6.10); Red Cell Distribution Width 17.2 % (11.6-14.4); White Blood Count 6.4 K/mm3 (4.8-10.8)
== END 2022-06-30 10:33 | disposition home or self-care (01) ==
LOC: CHSLAB 10:35
PROVIDERS: PCP Family Medicine; Visit Provider Family Medicine
DX: G47.30 Sleep apnea, unspecified (principal)
CPT/HCPCS: 36415; 85027

== ENCOUNTER 2022-09-05 13:21 | Outpatient (CLI) | payer MEDICARE, SELFPAY ==
[2022-09-05 13:31] LABS: Hematocrit 35.1 % (37.0-46.0); Hemoglobin 10.8 g/dL (12.4-15.3); Mean Corpuscular HGB Conc 30.8 g/dL (32.0-36.0); Mean Corpuscular Hemoglobin 26.1 pg (27.0-31.0); Mean Corpuscular Volume 84.8 fL (78.0-102.0); Mean Platelet Volume 9.5 fl (8.7-11.0); Platelet Count Result 201 K/mm3 (150-420); Red Blood Count 4.14 M/mm3 (4.70-6.10); Red Cell Distribution Width 15.2 % (11.6-14.4)
[2022-09-05 14:24] LABS: Alanine Aminotransferase 22 U/L (16-63); Albumin Level 3.7 g/dL (3.4-5.0); Alkaline Phosphatase 104 U/L (46-116); Anion Gap 7 mmol/L (8-16); Aspartate Amino Transferase 15 U/L (15-37); Bilirubin,Total 0.4 mg/dL (0.00-1.00); Blood Urea Nitrogen 24 mg/dL (7-18); Carbon Dioxide 31 mmol/L (21-32); Chloride 101 mmol/L (98-108); Estimated Glomerular Filt Rate 50; Ferritin 20 ng/mL (26-388); Glucose 215 mg/dL (70-99); Osmolality Calculated 298 mOsm/kg (285-295); Potassium 4.4 mmol/L (3.5-5.1); Sodium 139 mmol/L (136-145); Total Protein 6.9 g/dL (6.4-8.2)
== END 2022-09-05 13:22 | disposition home or self-care (01) ==
LOC: CHSLAB 13:22
PROVIDERS: PCP Family Medicine; Visit Provider Family Medicine
DX: D50.9 Iron deficiency anemia, unspecified (principal)
CPT/HCPCS: 36415; 80053; 82728; 85027

== ENCOUNTER 2022-09-23 14:24 | Outpatient (RCR) | payer MEDICARE, SELFPAY ==
--- NOTE | 2022-09-23 15:27 | PTOPEVAL1 ---
Assessment and note entered by JT File, PT Evaluation Information Assessment Status Evaluation Diagnosis dorsalgia Onset 08/23/22 Subjective Information patient reports no injury, but work up a few mornings with back pain about 1 month ago. he reports he did mow grass one day and reports he had severe pain in the lower back. he reports this pain is affected with movement of the R LE. he reports he has less pain during the day typically. he reports he is medicating with extra strength tylenol and using a heating pad. he reports he has difficulty sleeping. he reports prior to a month ago, he was moving slow due to other medical issues, but was having no pain with sleeping or in the mornings. he reports he now has to move slowly with all movement. he reports he also has difficulty walking due to the pain. he reports sitting on hard surfaces is uncomfortable. Assessment PT Clinical Summary mr. rios is a 71 yo man who presents to skilled PT services for evaluation and treatment of lower back pain. he presents today with decreased rom, pain, weakness of the hip and core, and abnormal posture/gait. he would benefit from continued skilled PT to improve his objective/ functional deficits and progress towards a return to his prior level functional activity performance /quality of life. his signs and symptoms are consistent with a DDD/stenosis type of injury. Plan of Care Interventions Electrical Stimulation,Gait Training,Hot Pack/Cold Pack,Manual Therapy,Mechanical Traction,Neuro Re- education,Patient/Caregiver Educati,Therapeutic Activities,Therapeutic Exercise PT Services Indicated Yes Treatment Frequency and 3x weekly for 12 visits Duration These treatments will address the objective and functional deficits as defined above. The patient will be advanced safely and appropriately in order for the patient to progress towards his/her prior level of function. Additional exercises will be introduced and as well as a comprehensive home exercise program upon discharge, if needed, ?to ensure carryover of functional gains achieved in the clinic. This treatment plan has been reviewed and agreement upon by the patient.
== END 2022-10-29 14:00 | disposition home or self-care (01) ==
LOC: CHSPT 14:24
PROVIDERS: PCP Family Medicine; Visit Provider Family Medicine
DX: M54.9 Dorsalgia, unspecified (principal)
CPT/HCPCS: 97014; 97110; 97140; 97150; 97161; G0283

== ENCOUNTER 2023-01-19 10:47 | Outpatient (CLI) | payer MEDICARE, SELFPAY ==
--- NOTE | ~2023-01-19 | XR_ITS ---
EXAM: XR lumbar spine 2-3V DATE: 01/19/2023 11:06 HISTORY: LBP,LANDEN LEG WEAKNESS/FATIGUE . COMPARISON: CT abdomen pelvis 04/09/2022; MR L-spine 06/09/2015. FINDINGS: Left upper quadrant embolization coils. Atherosclerotic aortic calcification without eviden t aneurysm. 5 nonrib-bearing lumbar-type vertebral bodies. Pedicles intact. 3 mm retrolisthesis at L1 -2. 4 mm retrolisthesis at L2-3. Trace anterolisthesis at L4-5. Mild anterior wedge deformity at the thoracolumbar junction, presumably physiologic. Vertebral body heights otherwise preserved. Multileve l moderate disc space narrowing with large bridging osteophytes. Multilevel severe facet hypertrophy and sclerosis, with multilevel interspinous narrowing. No fracture or dislocation. IMPRESSION: Grade 1 retrolistheses at L1-2 and L2-3. Trace anterolisthesis at L4-5. Multilevel moderate degenerative disc disease with large bridging osteophytes. Severe lumbar facet arthropathy with interspinous narrowing. Reviewed, dictated and finalized at [facility].
== END 2023-01-19 10:48 | disposition home or self-care (01) ==
LOC: CHSIMG 10:49
PROVIDERS: PCP Family Medicine; Visit Provider Family Medicine
DX: R29.818 Other symptoms and signs involving the nervous system (principal); M43.16 Spondylolisthesis, lumbar region; M12.88 Other specific arthropathies, not elsewhere classified, other specified site
CPT/HCPCS: 72100

== ENCOUNTER 2023-02-17 10:40 | Outpatient (RCR) | payer MEDICARE, SELFPAY ==
--- NOTE | 2023-02-17 12:02 | PTOPEVAL1 ---
Assessment and note entered by Radha Garcia, PT Evaluation Information Assessment Status Evaluation Diagnosis LBP Onset 01/16/23 Subjective Information Santo Miller reports he has been having low back and leg pain for over a year that has worsened. He notes he can only walk about 300 ft before he has to rest. He is limited to standing in one position for 10-15 minutes. He has a history of peripheral artery disease and his vascular specialist did not think it was caused by the PAD. He went to his PCP and x-rays showed degenerative disc disease, mild retrolithesis at L1-2 and L 2-3, and lumbar facet arthropathy. Reported Pain Level Pain Score 0,0: Self Report Assessment PT Clinical Summary Santo Miller presents with chronic low back pain with radiculopathy to bilateral lower extremities. He is limited with walking due to radiating pain and standing due to low back pain. He objectively demonstrates decreased lumbar AROM, decreased core and hip strength, decreased hamstring and piriformis flexibility, and decreased functional abilities. He will benefit from skilled PT to address these limitations and improve his daily function. Plan of Care Interventions Electrical Stimulation,Hot Pack/Cold Pack,Manual Therapy,Mechanical Traction,Neuro Re-education, Patient/Caregiver Educati,Therapeutic Activities, Therapeutic Exercise PT Services Indicated Yes Treatment Frequency and 3 times a week for 10 visits Duration These treatments will address the objective and functional deficits as defined above. The patient will be advanced safely and appropriately in order for the patient to progress towards his/her prior level of function. Additional exercises will be introduced and as well as a comprehensive home exercise program upon discharge, if needed, ?to ensure carryover of functional gains achieved in the clinic. This treatment plan has been reviewed and agreement upon by the patient.
--- NOTE | 2023-02-17 12:02 | OPREHPOC ---
Outpatient Therapy Plan of Care This is a Multidisciplinary Plan of Care that may contain components documented by all disciplines (PT, OT, and ST.) PT Problem 1 PT Problem #1 Knowledge Deficit PT Goal 1 Goal The patient will be independent in a home exercise program for core and hip strengthening to continue after discharge from formal PT. Target Visit 10 PT Problem 2 PT Problem #2 Pain PT Goal 1 Goal The patient will report no greater than 4/10 bilateral LE pain with walking 600 ft. The patient will report no greater than 3/10 LBP with standing for 15 minutes. Target Visit 10 PT Problem 3 PT Problem #3 Impaired Endurance PT Goal 1 Goal The patient will be able to ambulate 1,200 feet during the 6 minute walk test to improve endurance for community ambulation. Target Visit 10 PT Problem 4 PT Problem #4 Impaired Strength PT Goal 1 Goal Patient to demonstrate 3+/5 or greater upper and lower abdominal strength to support the spine for ADLs. Target Visit 10
--- NOTE | 2023-03-09 10:16 | OPREHPOC ---
Outpatient Therapy Plan of Care This is a Multidisciplinary Plan of Care that may contain components documented by all disciplines (PT, OT, and ST.) PT Problem 1 PT Problem #1 Knowledge Deficit PT Goal 1 Goal The patient will be independent in a home exercise program for core and hip strengthening to continue after discharge from formal PT. Target Visit 10 Progress Met PT Problem 2 PT Problem #2 Pain PT Goal 1 Goal The patient will report no greater than 4/10 bilateral LE pain with walking 600 ft. The patient will report no greater than 3/10 LBP with standing for 15 minutes. Target Visit 10 Progress Met PT Problem 3 PT Problem #3 Impaired Endurance PT Goal 1 Goal The patient will be able to ambulate 1,200 feet during the 6 minute walk test to improve endurance for community ambulation. progress made, but goal not met Target Visit 10 Progress Partially Met PT Problem 4 PT Problem #4 Impaired Strength PT Goal 1 Goal Patient to demonstrate 3+/5 or greater upper and lower abdominal strength to support the spine for ADLs. met for lower core, but not uppper core. Target Visit 10 Progress Partially Met
--- NOTE | 2023-03-09 10:17 | PTOPDC ---
Assessment and note entered by JT File, PT Evaluation Information Assessment Status Discharge Diagnosis LBP Onset 01/16/23 Subjective Information patient reports he continues to have trouble standing and walking for increased time due to pain across the lower back. however, he reports he will sit and rest for a bit and then he is able to stand up and continue. he reports he is now able to stand for up to 30 minutes prior to needing rest. he reports he has been trying to get an MRI, and also has an appointment with a back surgeon next week. Reported Pain Level Pain Score 0,0: Self Report Assessment PT Clinical Summary mr. rios presents to skilled PT for his 10th skilled therapy visit for lower back pain. he continues to have pain with prolonged standing and walking activities, but his time to pain takes longer, and overall pain level is decreased at worst. he continues to have weakness in the core and poor posture due to his lumbar DDD. as of this date, he has met several goals for skilled PT, but has not met goals for ambulation distance and core strength. patient would benefit most from DC of skilled PT at this time, continue with HEP independent at home, and await instructions/ evaluation from back surgeon. Plan of Care PT Services Indicated Yes
== END 2023-03-09 11:34 | disposition home or self-care (01) ==
LOC: CHSPT 10:40
PROVIDERS: PCP Family Medicine; Visit Provider Family Medicine
DX: R29.818 Other symptoms and signs involving the nervous system (principal)
CPT/HCPCS: 97012; 97014; 97110; 97140; 97161; G0283

== ENCOUNTER 2023-06-19 11:16 | Outpatient (CLI) | payer MEDICARE, SELFPAY ==
[2023-06-19 11:30] LABS: Basophils Absolute Auto 0.02 K/mm3 (0.00-0.10); Basophils Percent Auto 0.3 % (0.0-1.0); Eosinophils Absolute Auto 0.07 K/mm3 (0.02-0.50); Hematocrit 37.5 % (37.0-46.0); Hemoglobin 11.9 g/dL (12.4-15.3); Immature Granulocyte Absolute 0.02 K/mm3 (0.00-0.00); Immature Granulocyte Percent A 0.3 % (0.0-0.0); Lymphocytes Absolute Auto 1.01 K/mm3 (1.10-4.50); Lymphocytes Percent Auto 13.9 % (18.0-42.0); Mean Corpuscular HGB Conc 31.7 g/dL (32.0-36.0); Mean Platelet Volume 8.9 fl (8.7-11.0); Monocytes Absolute Auto 0.56 K/mm3 (0.10-0.90); Monocytes Percent Auto 7.7 % (2.0-11.0); Neutrophils Absolute Auto 5.6 K/mm3 (1.7-7.2); Neutrophils Percent Auto 76.8 % (50.0-70.0); Platelet Count Result 199 K/mm3 (150-420); Red Blood Count 4.41 M/mm3 (4.70-6.10); Red Cell Distribution Width 13.4 % (11.6-14.4); White Blood Count 7.3 K/mm3 (4.8-10.8)
[2023-06-19 12:24] LABS: Ferritin 21 ng/mL (26-388); Iron 32 ug/dL (65-175); Magnesium 1.7 mg/dL (1.8-2.4); Percent Iron Saturation 9 % (12-57)
[2023-06-24 00:30] LABS: Vitamin D 1,25 (OH)2 Total 38 pg/mL (18-72); Vitamin D2 1,25 (OH)2 <8 pg/mL; Vitamin D3 1,25 (OH)2 38 pg/mL
== END 2023-06-19 11:17 | disposition home or self-care (01) ==
LOC: CHSLAB 11:17
PROVIDERS: PCP Family Medicine; Visit Provider Family Medicine
DX: D50.9 Iron deficiency anemia, unspecified (principal); E55.9 Vitamin D deficiency, unspecified
CPT/HCPCS: 36415; 82652; 82728; 83540; 83550; 83735; 85025

== ENCOUNTER 2023-07-06 13:30 | Outpatient (CLI) | payer MEDICARE, SELFPAY ==
[2023-07-06 13:40] LABS: Basophils Absolute Auto 0.02 K/mm3 (0.00-0.10); Basophils Percent Auto 0.2 % (0.0-1.0); Eosinophils Absolute Auto 0.07 K/mm3 (0.02-0.50); Eosinophils Percent Auto 0.7 % (1.0-6.0); Hematocrit 36.8 % (37.0-46.0); Hemoglobin 11.8 g/dL (12.4-15.3); Immature Granulocyte Absolute 0.03 K/mm3 (0.00-0.00); Immature Granulocyte Percent A 0.3 % (0.0-0.0); Lymphocytes Percent Auto 10.2 % (18.0-42.0); Mean Corpuscular HGB Conc 32.1 g/dL (32.0-36.0); Mean Corpuscular Hemoglobin 26.8 pg (27.0-31.0); Mean Corpuscular Volume 83.6 fL (78.0-102.0); Monocytes Absolute Auto 0.67 K/mm3 (0.10-0.90); Monocytes Percent Auto 6.8 % (2.0-11.0); Neutrophils Percent Auto 81.8 % (50.0-70.0); Platelet Count Result 210 K/mm3 (150-420); Red Cell Distribution Width 13.2 % (11.6-14.4); White Blood Count 9.8 K/mm3 (4.8-10.8)
--- NOTE | 2023-07-06 13:41 | ECG_ITS ---
Measurements Intervals [place] Rate: 66 P: MD: 0 QRS: 17 QRSD: 110 T: 73 QT: 404 QTc: 423 Interpretive Statements ATRIAL FIBRILLATION ABNORMAL RHYTHM ECG COMPARED TO ECG 03/22/2022 16:05:26 NO SIGNIFICANT CHANGES Electronically Signed On 07-06-2023 18:44:28 [employer] by Thomas Cruz M.D.
[2023-07-06 15:11] LABS: Alanine Aminotransferase 22 U/L (16-63); Albumin Level 3.6 g/dL (3.4-5.0); Alkaline Phosphatase 92 U/L (46-116); Anion Gap 9 mmol/L (8-16); Aspartate Amino Transferase 13 U/L (15-37); Bilirubin,Total 0.6 mg/dL (0.00-1.00); Blood Urea Nitrogen 24 mg/dL (7-18); Calcium 8.7 mg/dL (8.5-10.1); Carbon Dioxide 29 mmol/L (21-32); Chloride 97 mmol/L (98-108); Estimated Glomerular Filt Rate 53; Glucose 160 mg/dL (70-99); Osmolality Calculated 287 mOsm/kg (285-295); Potassium 3.7 mmol/L (3.5-5.1); Sodium 135 mmol/L (136-145); Total Protein 6.5 g/dL (6.4-8.2)
== END 2023-07-06 13:31 | disposition home or self-care (01) ==
LOC: CHSLAB 13:31
PROVIDERS: PCP Family Medicine; Visit Provider Family Medicine
DX: R29.818 Other symptoms and signs involving the nervous system (principal); I48.91 Unspecified atrial fibrillation; R94.31 Abnormal electrocardiogram [ECG] [EKG]
CPT/HCPCS: 36415; 80053; 85025; 93005

== ENCOUNTER 2023-08-05 11:15 | Outpatient (CLI) | payer MEDICARE, SELFPAY ==
[2023-08-05 11:26] LABS: Basophils Absolute Auto 0.01 K/mm3 (0.00-0.10); Basophils Percent Auto 0.1 % (0.0-1.0); Eosinophils Absolute Auto 0.04 K/mm3 (0.02-0.50); Eosinophils Percent Auto 0.5 % (1.0-6.0); Hematocrit 33.7 % (37.0-46.0); Hemoglobin 10.2 g/dL (12.4-15.3); Immature Granulocyte Absolute 0.02 K/mm3 (0.00-0.00); Immature Granulocyte Percent A 0.3 % (0.0-0.0); Lymphocytes Absolute Auto 1.09 K/mm3 (1.10-4.50); Lymphocytes Percent Auto 14.2 % (18.0-42.0); Mean Corpuscular HGB Conc 30.3 g/dL (32-36); Mean Corpuscular Volume 82.6 fL (78.0-102.0); Mean Platelet Volume 8.7 fl (8.7-11.0); Monocytes Absolute Auto 0.67 K/mm3 (0.10-0.90); Monocytes Percent Auto 8.7 % (2.0-11.0); Neutrophils Absolute Auto 5.86 K/mm3 (1.70-7.20); Neutrophils Percent Auto 76.2 % (50.0-70.0); Platelet Count Result 252 K/mm3 (150-420); Red Blood Count 4.08 M/mm3 (4.70-6.10); Red Cell Distribution Width 13.5 % (11.6-14.4); White Blood Count 7.7 K/mm3 (4.8-10.8)
[2023-08-05 11:39] LABS: Appearance Urine Clear (Clear); Bilirubin Urine Negative (Negative); Blood Urine Negative (Negative); Color Urine Light Yellow (Yellow); Glucose Urine UA Negative (Negative); Ketones Urine Negative (Negative); Leukocyte Esterase Ur Negative LEU/UL (Negative); Nitrate Urine Negative (Negative); Protein Urine Negative (Negative)
[2023-08-05 12:06] LABS: Add Urine Microscopic? NO
[2023-08-05 12:28] LABS: Alanine Aminotransferase 24 U/L (16-63); Albumin Level 3.7 g/dL (3.4-5.0); Alkaline Phosphatase 94 U/L (46-116); Anion Gap 13 mmol/L (4-12); Aspartate Amino Transferase 13 U/L (15-37); Bilirubin,Total 0.6 mg/dL (0.00-1.00); Blood Urea Nitrogen 22 mg/dL (7-18); Calcium 9.2 mg/dL (8.5-10.1); Carbon Dioxide 27 mmol/L (21-32); Chloride 98 mmol/L (98-108); Estimated Glomerular Filt Rate 58; Glucose 139 mg/dL (70-99); Lipase 66 U/L (16-77); Osmolality Calculated 291 mOsm/kg (285-295); Potassium 4.2 mmol/L (3.5-5.1); Sodium 138 mmol/L (136-145); Total Protein 6.7 g/dL (6.4-8.2)
[2023-08-05 12:29] LABS: CRP < 0.5 mg/dL (0.0-0.9)
== END 2023-08-05 11:16 | disposition home or self-care (01) ==
LOC: CHSLAB 11:16
PROVIDERS: PCP Family Medicine; Visit Provider Nurse Practitioner Family
DX: R10.32 Left lower quadrant pain (principal)
CPT/HCPCS: 36415; 80053; 81003; 83690; 85025; 86140

== ENCOUNTER 2023-08-13 08:02 | Outpatient (CLI) | payer MEDICARE, SELFPAY ==
[2023-08-13 08:13] LABS: Occult Blood Positive (Negative)
== END 2023-08-13 08:03 | disposition home or self-care (01) ==
LOC: CHSLAB 08:04
PROVIDERS: PCP Family Medicine; Visit Provider Nurse Practitioner Family
DX: K92.1 Melena (principal)
CPT/HCPCS: 82272

== ENCOUNTER 2023-08-14 13:54 | Outpatient (CLI) | payer MEDICARE, SELFPAY ==
[2023-08-14 14:24] LABS: Basophils Absolute Auto 0.01 K/mm3 (0.00-0.10); Basophils Percent Auto 0.1 % (0.0-1.0); Eosinophils Absolute Auto 0.01 K/mm3 (0.02-0.50); Eosinophils Percent Auto 0.1 % (1.0-6.0); Hematocrit 29.3 % (37.0-46.0); Immature Granulocyte Absolute 0.04 K/mm3 (0.00-0.00); Immature Granulocyte Percent A 0.4 % (0.0-0.0); Lymphocytes Absolute Auto 0.97 K/mm3 (1.10-4.50); Lymphocytes Percent Auto 9.3 % (18.0-42.0); Mean Corpuscular HGB Conc 30.7 g/dL (32-36); Mean Corpuscular Hemoglobin 24.9 pg (27.0-31.0); Mean Corpuscular Volume 81.2 fL (78.0-102.0); Mean Platelet Volume 9.4 fl (8.7-11.0); Monocytes Absolute Auto 0.72 K/mm3 (0.10-0.90); Monocytes Percent Auto 6.9 % (2.0-11.0); Neutrophils Absolute Auto 8.69 K/mm3 (1.70-7.20); Neutrophils Percent Auto 83.2 % (50.0-70.0); Platelet Count Result 231 K/mm3 (150-420); Red Blood Count 3.61 M/mm3 (4.70-6.10); Red Cell Distribution Width 14.4 % (11.6-14.4); White Blood Count 10.4 K/mm3 (4.8-10.8)
[2023-08-14 16:39] LABS: Ferritin 34 ng/mL (26-388)
[2023-08-14 16:49] LABS: Iron 35 ug/dL (65-175); Percent Iron Saturation 11 % (12-57)
== END 2023-08-14 13:55 | disposition home or self-care (01) ==
LOC: CHSLAB 13:57
PROVIDERS: PCP Family Medicine; Visit Provider Nurse Practitioner Family
DX: K92.1 Melena (principal)
CPT/HCPCS: 36415; 82728; 83540; 83550; 85025

== ENCOUNTER 2023-08-20 09:56 | Outpatient (CLI) | payer MEDICARE, SELFPAY ==
--- NOTE | ~2023-08-20 | CT_ITS ---
Non-contrast CT scan of the Abdomen and Pelvis Clinical indication: Cramping, melena Technique: 2.5 mm axial scans were obtained through the abdomen and pelvis without intravenous or or al contrast. Dose reduction technique was used on this scan by utilizing automated exposure control a nd iterative reconstruction technique. The dose-length product (DLP) was 1258.99 mGy-cm. Findings: Images through the lung bases reveal no abnormalities. Punctate nonobstructing left renal stones noted. No right renal stone. No ureteral stone or hydroneph rosis.. The liver, spleen, pancreas, gallbladder, and adrenals appear normal. There are atherosclerotic calci fications of the aorta. There is no evidence of bowel obstruction. Very small fat-containing umbilical hernia present. Images through the pelvis were performed. There is no evidence of ascites or lymphadenopathy. Urinary bladder unremarkable. No pelvic mass seen. Impression: No acute abnormality evident. Punctate nonobstructing left renal stones. Very small fat-containing inguinal hernia. Reviewed, dictated and finalized at [facility]. Impression: No acute abnormality evident. Punctate nonobstructing left renal stones. Very small fat-containing inguinal hernia.
[2023-08-20 10:14] LABS: Basophils Absolute Auto 0.01 K/mm3 (0.00-0.10); Basophils Percent Auto 0.1 % (0.0-1.0); Eosinophils Absolute Auto 0.03 K/mm3 (0.02-0.50); Eosinophils Percent Auto 0.4 % (1.0-6.0); Hematocrit 29.6 % (37.0-46.0); Hemoglobin 9.1 g/dL (12.4-15.3); Immature Granulocyte Absolute 0.04 K/mm3 (0.00-0.00); Immature Granulocyte Percent A 0.5 % (0.0-0.0); Lymphocytes Absolute Auto 0.88 K/mm3 (1.10-4.50); Lymphocytes Percent Auto 10.8 % (18.0-42.0); Mean Corpuscular HGB Conc 30.7 g/dL (32-36); Mean Corpuscular Hemoglobin 25.5 pg (27.0-31.0); Mean Corpuscular Volume 82.9 fL (78.0-102.0); Mean Platelet Volume 9.1 fl (8.7-11.0); Monocytes Absolute Auto 0.57 K/mm3 (0.10-0.90); Neutrophils Absolute Auto 6.65 K/mm3 (1.70-7.20); Neutrophils Percent Auto 81.2 % (50.0-70.0); Platelet Count Result 244 K/mm3 (150-420); Red Blood Count 3.57 M/mm3 (4.70-6.10); Red Cell Distribution Width 15.3 % (11.6-14.4); White Blood Count 8.2 K/mm3 (4.8-10.8)
== END 2023-08-20 09:57 | disposition home or self-care (01) ==
LOC: CHSIMG 09:58
PROVIDERS: PCP Family Medicine; Visit Provider Nurse Practitioner Family
DX: K92.1 Melena (principal); Z79.01 Long term (current) use of anticoagulants; R10.32 Left lower quadrant pain; N20.0 Calculus of kidney; K40.90 Unilateral inguinal hernia, without obstruction or gangrene, not specified as recurrent
CPT/HCPCS: 36415; 74176; 85025

== ENCOUNTER 2023-08-31 00:40 | Day surgery (SDC) | payer MEDICARE, SELFPAY ==
[2023-08-21 13:21] VITALS: BMI 31.6
--- NOTE | 2023-08-26 16:25 | PC.NURSE ---
Spoke with PATIENT regarding medication ELIQIS AND PLAVIX. Pt. verbalizes understanding that the last dose of PLAVIX IS 08/26/2023(PT STOPPED 08/25/23) AND ELIQUIS 08/28/2023 and the Endoscopist will instruct them when to restart after the procedure.
[2023-08-31 11:19] VITALS: BP 155/78; PULSE 77; RESP 18; TEMP 36.1; O2SAT 100
[2023-08-31] MEDS: LACTATED RINGERS 1,000 ML 150 ML IV CONT (11:34)
[2023-08-31 11:36] LABS: Glucose Point of Care 146 mg/dl (65-105)
--- NOTE | 2023-08-31 12:39 | PM.HPGS ---
History of Present Illness History of Present Illness Consent: Risks, benefits, and alternatives have been discussed and questions answered. Patient agrees to proceed with procedure. Chief complaint: melena, dizziness and giddiness Narrative: Santo Miller is a 72 year old male with intermittent hematochezia using eliquis and anemia with hgb 9, had colonoscopy 03/2022 only with polyps removed and diverticulosis then EGD 05/2022 no major findings. Review of Systems Review of Systems: All systems reviewed & are unremarkable except as noted in HPI and below PMFSH Past Medical History Medical History Afib BMI 32.0-32.9,adult BPH (benign prostatic hyperplasia) CAD (coronary artery disease) Coronary artery disease involving coronary bypass graft of [place] heart Diverticulosis Dysphagia G tube feedings GERD (gastroesophageal reflux disease) Hypertension associated with diabetes Hypokalemia Lightheadedness Multinodular goiter Obesity Saddle embolus Sleep apnea Type 2 diabetes mellitus, without long-term current use of insulin Weight loss Surgical History Surgical History H/O carotid endarterectomy 06/2019 History of heart artery stent 1 stent: 03/2005 1 stent: 02/2008 3 stents: 02/2009 1 stent: 12/2013 1 stent: 09/2014 History of lumbar laminectomy 03/2016 Hx of coronary artery bypass graft x7, 1993 S/P percutaneous endoscopic gastrostomy (PEG) tube placement Status post trigger finger release (~2017) Family History Family History Mother , mother at age 58 of ID No problems noted. Father , father of coronary artery disease at age 55 No problems noted. Other Family history of coronary artery disease Social History Social History Smoking status: Never smoker Alcohol intake: current Alcohol use details: does not drink alcohol Substance use: never Substance use type: does not use Lack of Transportation: No Lack of Food: Never True Current Housing: I Have Housing Concerned About Future Housing: No Difficulty Paying Gas/Electric Bills: No Difficulty Paying for Meds: No Currently Unemployed: No Education: Bachelor's Degree Difficulty w/ Childcare or Family Care: No Living arrangements: with family Additional living arrangements comments: Occupation/Education: retired Gender identity (if verbalized by the patient): Male Sexual Orientation (if Verbalized by the Patient): Straight or Heterosexual Spiritual care concerns: No Meds Home Medications and Allergies Home Medications Medication Instructions Recorded Confirmed Type chlorthalidone 25 mg tablet 25 mg PO DAILY 04/03/20 08/21/23 History loratadine 10 mg tablet (Claritin) 10 mg PO DAILY 03/22/22 08/21/23 History amlodipine 2.5 mg tablet 2.5 mg PO BID 03/25/22 08/21/23 History fluticasone propionate 50 2 spray intranasal HS PRN Allergy 03/25/22 08/21/23 History mcg/actuation nasal Symptoms spray,suspension irbesartan 300 mg tablet 150 mg PO BID 03/25/22 08/21/23 History atorvastatin 80 mg tablet See Rx Instructions .Route 12/15/22 08/21/23 Rx .COMPLEX #90 tabs clopidogrel 75 mg tablet 75 mg PO DAILY 01/02/23 08/31/23 History docusate sodium 100 mg capsule 100 mg PO DAILY 01/02/23 08/21/23 History (Colace) ferrous sulfate 325 mg (65 mg 325 mg PO DAILY 01/02/23 08/21/23 History iron) tablet,delayed release pantoprazole 40 mg tablet,delayed 40 mg PO QAM 01/02/23 08/21/23 History release famotidine 40 mg tablet See Rx Instructions .Route 01/09/23 08/21/23 Rx .COMPLEX #90 tabs apixaban 5 mg tablet (Eliquis) See Rx Instructions .Route 06/02/23 08/31/23 Rx .COMPLEX #180 tabs blood sugar diagnostic (Accu-Chek #100 ea 06/22/23
--- NOTE | 2023-08-31 12:42 | WPDANESEPPF ---
Anes - Initial Pre Proc Eval Procedure: Operation Date: 08/31/23 12:30 Proposed Procedures p Colonoscopy - Ricky Murillo MD Date/Time: 08/31/23 12:42 Surgeon: Ricky Murillo MD Pre Op Diagnosis: melena, dizziness and giddiness Patient Data Age: 72 Gender: M Height: 1.78 m Weight: 97.8 kg Last Vital Signs Temp 97 F L 08/31/23 11:19 Pulse 77 08/31/23 11:19 Resp 18 08/31/23 11:19 BP 155/78 H 08/31/23 11:19 Pulse Ox 100 08/31/23 11:19 O2 Del Method Room Air 08/31/23 11:19 Allergies Allergy/AdvReac Type Severity Reaction Status Date / Time No Known Allergies Allergy Verified 08/31/23 11:17 Home Medications Medication Instructions Recorded Confirmed Type chlorthalidone 25 mg tablet 25 mg PO DAILY 04/03/20 08/21/23 History loratadine 10 mg tablet (Claritin) 10 mg PO DAILY 03/22/22 08/21/23 History amlodipine 2.5 mg tablet 2.5 mg PO BID 03/25/22 08/21/23 History fluticasone propionate 50 2 spray intranasal HS PRN Allergy 03/25/22 08/21/23 History mcg/actuation nasal Symptoms spray,suspension irbesartan 300 mg tablet 150 mg PO BID 03/25/22 08/21/23 History atorvastatin 80 mg tablet See Rx Instructions .Route 12/15/22 08/21/23 Rx .COMPLEX #90 tabs clopidogrel 75 mg tablet 75 mg PO DAILY 01/02/23 08/31/23 History docusate sodium 100 mg capsule 100 mg PO DAILY 01/02/23 08/21/23 History (Colace) ferrous sulfate 325 mg (65 mg 325 mg PO DAILY 01/02/23 08/21/23 History iron) tablet,delayed release pantoprazole 40 mg tablet,delayed 40 mg PO QAM 01/02/23 08/21/23 History release famotidine 40 mg tablet See Rx Instructions .Route 01/09/23 08/21/23 Rx .COMPLEX #90 tabs apixaban 5 mg tablet (Eliquis) See Rx Instructions .Route 06/02/23 08/31/23 Rx .COMPLEX #180 tabs blood sugar diagnostic (Accu-Chek #100 ea 06/22/23 08/11/23 Rx Madeleine Plus test strips) ropinirole 1 mg tablet See Rx Instructions .Route 07/06/23 08/21/23 Rx .COMPLEX #90 tabs metformin 500 mg tablet,extended See Rx Instructions .Route 07/20/23 08/21/23 Rx release 24 hr .COMPLEX #90 tabs lactobacillus combination no.9 4 4,000 mmu cells PO DAILY 08/05/23 08/21/23 History billion cell capsule (Adult 50 Plus Probiotic) dapagliflozin propanediol 10 mg 10 mg PO DAILY #90 tabs 08/18/23 08/21/23 Rx tablet (Farxiga) diphenhydramine 25 1 tablet PO HS 08/21/23 08/21/23 History mg-acetaminophen 500 mg tablet (Tylenol PM Extra Strength) magnesium 500 mg tablet 500 mg PO DAILY 08/21/23 08/21/23 History Laboratory Tests 08/31/23 11:32 POC Capillary Glucose 146 H mg/dl (65-105) Patient hx anesthesia problems: none Family hx anesthesia problems: none Results Review: All pre-operative results and documents have been reviewed as part of the pre-operative evaluation. [facility] Past Medical History Medical History Afib BMI 32.0-32.9,adult BPH (benign prostatic hyperplasia) CAD (coronary artery disease) Coronary artery disease involving coronary bypass graft of [place] heart Diverticulosis Dysphagia G tube feedings GERD (gastroesophageal reflux disease) Hypertension associated with diabetes Hypokalemia Lightheadedness Multinodular goiter Obesity Saddle embolus Sleep apnea Type 2 diabetes mellitus, without long-term current use of insulin Weight loss Surgical History Surgical History H/O carotid endarterectomy 06/2019 History of heart artery stent 1 stent: 03/2005 1 stent: 02/2008 3 stents: 02/2009 1 stent: 12/2013 1 stent: 09/2014 History of lumbar laminectomy 03/2016 Hx of coronary artery bypass graft x7, 1993 S/P percutaneous endoscopic gastrostomy (PEG) tube placement Status post trigger finger release (~2017) Family History Family History Mother , mother d
[2023-08-31 13:10] VITALS: BP 123/50; PULSE 63; RESP 16; O2SAT 100
[2023-08-31 13:20] VITALS: BP 113/51; PULSE 63; RESP 23; O2SAT 100
[2023-08-31 13:30] VITALS: BP 129/51; PULSE 69; RESP 16; O2SAT 100
== END 2023-08-31 13:40 | disposition home or self-care (01) ==
PROVIDERS: PCP Family Medicine; Visit Provider Internal Medicine Gastroenterology
PROC: 0DJD8ZZ Inspection of Lower Intestinal Tract, Via Natural or Artificial Opening Endoscopic (ICD-10-PCS; CPT 45378; principal; 2023-08-31 12:30)
DX: K92.1 Melena (principal); D12.3 Benign neoplasm of transverse colon; K64.8 Other hemorrhoids; K57.30 Diverticulosis of large intestine without perforation or abscess without bleeding; I10 Essential (primary) hypertension; E87.6 Hypokalemia; E11.9 Type 2 diabetes mellitus without complications; I48.91 Unspecified atrial fibrillation; N40.0 Benign prostatic hyperplasia without lower urinary tract symptoms; K21.9 Gastro-esophageal reflux disease without esophagitis; I25.10 Atherosclerotic heart disease of native coronary artery without angina pectoris; G47.30 Sleep apnea, unspecified; E66.9 Obesity, unspecified; Z68.30 Body mass index [BMI] 30.0-30.9, adult; Z79.02 Long term (current) use of antithrombotics/antiplatelets; Z79.01 Long term (current) use of anticoagulants; Z79.84 Long term (current) use of oral hypoglycemic drugs; Z98.890 Other specified postprocedural states; Z95.5 Presence of coronary angioplasty implant and graft; Z95.1 Presence of aortocoronary bypass graft; Z98.1 Arthrodesis status; Z93.1 Gastrostomy status; Z86.79 Personal history of other diseases of the circulatory system; Z86.718 Personal history of other venous thrombosis and embolism; Z82.49 Family history of ischemic heart disease and other diseases of the circulatory system
CPT/HCPCS: 45380; 45381; 82948; 88305; 88342; J2704; J7120

== ENCOUNTER 2023-09-02 10:58 | Outpatient (RCR) | payer MEDICARE, SELFPAY ==
--- NOTE | 2023-09-02 11:47 | OPREHPOC ---
Outpatient Therapy Plan of Care This is a Multidisciplinary Plan of Care that may contain components documented by all disciplines (PT, OT, and ST.) PT Problem 1 PT Problem #1 Knowledge Deficit PT Goal 1 Goal 1. independent and compliant with HEP Target Visit 6 PT Problem 2 PT Problem #2 Pain PT Goal 1 Goal 1. decrease pain at worst to 3/10 or less in the lower back. PT Problem 3 PT Problem #3 Impaired Strength PT Goal 1 Goal 1. improve bilateral hip strength to 4+/5 or better 2. improve L knee flexion to 5/5 3. patient to hold bridge for 1 minute with good posture/mechanics Target Visit 12 PT Problem 4 PT Problem #4 Impaired Functional Mobil PT Goal 1 Goal 1. patient to display lowered fall risk by completing 5x sit to stitcher standard machine under 15 seconds 2. patient to complete 6 minute walk test with no change in posture or step/stride length, and complete 800ft or more 3. patient to stand for 1 hour or more without loss of posture/increased pain 4. oswestry to display 20% or less functional deficits 5. improve bilateral hamstrings flexibility to 25 degrees or less tightness 6. mild or less bilateral hip flexor tightness to improve posture Target Visit 12
--- NOTE | 2023-09-02 11:47 | PTOPEVAL1 ---
Assessment and note entered by JT File, PT Evaluation Information Assessment Status Evaluation Diagnosis lumbar spinal stenosis Onset 08/21/23 Subjective Information patient reports he has had an MRI of the lumbar spine showing significant narrowing in his lumbar spine. he reports he has dealt with lower back pain and LE issues in the past. he reports he did have a laminectomy between the L2-L4 area about 2 months ago. he reports the back was doing better initially after the surgery. however, the LE's are still bothering him. he reports he has not done his post op HEP for about a week, and his back has now began hurting again. he reports he is hoping to get some better strength in the back and legs after therapy. he reports he does not have any numbness or tingling in the legs, but feels they are weak. he reports they feel more weak the longer he is standing and walking. Reported Pain Level Pain Score 0: Self Report Assessment PT Clinical Summary mr. rios is a 72 yo man who presents to skilled PT services for evaluation and treatment of lower back pain, and deficits related to post op laminectomy. he presents today with signs and symptoms consistent with continued lumbar spinal stenosis and neurogenic claudication leading to deficits in hip strength, posture/core weakness, and deficits in prolonged upright activities. continued skilled PT is indicated to improve his objective/functional deficits and progress towards an improved functional activity performance/ quality of life. Plan of Care Interventions Electrical Stimulation,Gait Training,Hot Pack/Cold Pack,Manual Therapy,Neuro Re-education,Patient/ Caregiver Educati,Therapeutic Activities, Therapeutic Exercise PT Services Indicated Yes Treatment Frequency and 3x weekly for 12 visits Duration These treatments will address the objective and functional deficits as defined above. The patient will be advanced safely and appropriately in order for the patient to progress towards his/her prior level of function. Additional exercises will be introduced and as well as a comprehensive home exercise program upon discharge, if needed, ?to ensure carryover of functional gains achieved in the clinic. This treatment plan has been reviewed and agreement upon by the patient.
--- NOTE | 2023-09-28 16:09 | PTOPPROG ---
Assessment and note entered by Thomas Ennsi Evaluation Information Assessment Status Progress Diagnosis lumbar spinal stenosis Onset 08/21/23 Subjective Information Pt. reports that pain at rest is less intense. He states that pain is most notable with long periods of standing. Assessment PT Clinical Summary Pt. has 2 remaining session on his POC. He has demonstrated progress in strength, however functional testing continues to indicate high fall risk and functional decline. Continued skilled PT is indicated per POC focusing on strength and remaining functional deficits. Plan of Care Interventions Electrical Stimulation,Gait Training,Hot Pack/Cold Pack,Manual Therapy,Neuro Re-education,Patient/ Caregiver Educati,Therapeutic Activities, Therapeutic Exercise PT Services Indicated Yes Treatment Frequency and Continue with 2 remaining sessions on pt. POC. Duration These treatments will address the objective and functional deficits as defined above. The patient will be advanced safely and appropriately in order for the patient to progress towards his/her prior level of function. Additional exercises will be introduced and as well as a comprehensive home exercise program upon discharge, if needed, ?to ensure carryover of functional gains achieved in the clinic. This treatment plan has been reviewed and agreement upon by the patient.
--- NOTE | 2023-10-06 15:11 | OPREHPOC ---
Outpatient Therapy Plan of Care This is a Multidisciplinary Plan of Care that may contain components documented by all disciplines (PT, OT, and ST.) PT Problem 1 PT Problem #1 Knowledge Deficit PT Goal 1 Goal 1. independent and compliant with HEP Target Visit 6 Progress Met PT Problem 2 PT Problem #2 Pain PT Goal 1 Goal 1. decrease pain at worst to 3/10 or less in the lower back. Progress Met PT Problem 3 PT Problem #3 Impaired Strength PT Goal 1 Goal 1. improve bilateral hip strength to 4+/5 or better -partially met 2. improve L knee flexion to 5/5 -met 3. patient to hold bridge for 1 minute with good posture/mechanics -not tested Target Visit 12 Progress Partially Met PT Problem 4 PT Problem #4 Impaired Functional Mobil PT Goal 1 Goal 1. patient to display lowered fall risk by completing 5x sit to wool hat finisher under 15 seconds - not met, significant progress towards 2. patient to complete 6 minute walk test with no change in posture or step/stride length, and complete 800ft or more -not met 3. patient to stand for 1 hour or more without loss of posture/increased pain -not met 4. oswestry to display 20% or less functional deficits -not met 5. improve bilateral hamstrings flexibility to 25 degrees or less tightness -met 6. mild or less bilateral hip flexor tightness to improve posture -not met Target Visit 12 Progress Partially Met
--- NOTE | 2023-10-06 15:12 | PTOPDC ---
Assessment and note entered by Radha Garcia, PT Evaluation Information Assessment Status Discharge Diagnosis lumbar spinal stenosis Onset 08/21/23 Subjective Information Santo Miller reports he gets occasional pain in his lower back by the end of the day. He does not feel the strength in his legs has improved and he continues to have limitations in how far he can walk. He has to use a cart to lean on or find somewhere to sit for rest breaks. He reports his orthopedic surgeon released him when he saw him on 10/02/23. He has an appointment with a vein specialist in a couple weeks and plans to talk to him about the weakness in his legs as well. Reported Pain Level Pain Score 0: Self Report Assessment PT Clinical Summary Santo Miller has completed 12 skilled PT visits for LE weakness and lumbar spinal stenosis. He is reporting minimal low back pain except occasionally in the evenings but he is still limited with how far he can walk due to weakness in his legs. He was released by the orthopedic assistant last week and will see a vascular specialist soon. He is ready to be discharged from formal PT and feels he can perform exercises on his own. He is demonstrating improvements in LE strength, improved hamstring flexibility, improved balance, and slightly improved endurance. He does still demonstrate hip abduction and extension weakness, hamstring flexbility restrictions, and decreased tolerance to continuous ambulation during the 6 minute walk test. He is being discharged to an independent [facility]. Plan of Care PT Services Indicated No
== END 2023-10-06 20:00 | disposition home or self-care (01) ==
LOC: CHSPT 10:58
DX: M48.061 Spinal stenosis, lumbar region without neurogenic claudication (principal)
CPT/HCPCS: 97014; 97110; 97112; 97161; 97750; G0283

== ENCOUNTER 2023-09-26 13:59 | Outpatient (CLI) | payer MEDICARE, SELFPAY ==
[2023-09-26 14:23] LABS: Basophils Absolute Auto 0.02 K/mm3 (0.00-0.10); Basophils Percent Auto 0.2 % (0.0-1.0); Eosinophils Absolute Auto 0.01 K/mm3 (0.02-0.50); Eosinophils Percent Auto 0.1 % (1.0-6.0); Hematocrit 29.4 % (37.0-46.0); Hemoglobin 8.6 g/dL (12.4-15.3); Immature Granulocyte Absolute 0.07 K/mm3 (0.00-0.00); Immature Granulocyte Percent A 0.6 % (0.0-0.0); Lymphocytes Absolute Auto 0.57 K/mm3 (1.10-4.50); Lymphocytes Percent Auto 4.5 % (18.0-42.0); Mean Corpuscular HGB Conc 29.3 g/dL (32-36); Mean Corpuscular Hemoglobin 23.1 pg (27.0-31.0); Mean Platelet Volume 8.5 fl (8.7-11.0); Monocytes Absolute Auto 0.86 K/mm3 (0.10-0.90); Monocytes Percent Auto 6.8 % (2.0-11.0); Neutrophils Absolute Auto 11.09 K/mm3 (1.70-7.20); Neutrophils Percent Auto 87.8 % (50.0-70.0); Platelet Count Result 271 K/mm3 (150-420); Red Blood Count 3.72 M/mm3 (4.70-6.10); Red Cell Distribution Width 16.3 % (11.6-14.4); White Blood Count 12.6 K/mm3 (4.8-10.8)
[2023-09-28 23:43] LABS: Iron 51 ug/dL (65-175); Percent Iron Saturation 15 % (12-57)
== END 2023-09-26 14:00 | disposition home or self-care (01) ==
LOC: CHSLAB 14:00
PROVIDERS: PCP Family Medicine; Visit Provider Nurse Practitioner Family
DX: C18.9 Malignant neoplasm of colon, unspecified (principal); K92.1 Melena
CPT/HCPCS: 36415; 83540; 83550; 85025

== ENCOUNTER 2023-10-01 07:32 | Outpatient (CLI) | payer MEDICARE, SELFPAY ==
--- NOTE | ~2023-10-01 | CT_ITS ---
EXAMINATION: CT diagnostic chest w con DATE: 10/01/2023 08:50 INDICATION: Chronic shortness of breath. Prostate cancer. New diagnosis: Cancer; evaluate for metasta ses. TECHNIQUE: Computed tomography (CT) of the chest was performed with 75 CC Omnipaque 350 intravenous c ontrast. Automated exposure control and iterative reconstruction technique were employed. Exam dose: 317.33 mGy-cm total exam DLP. COMPARISON: 03/22/2022 2 view FINDINGS: Status post sternotomy and coronary artery bypass graft surgery. Normal heart size. There is aortic calcification but no thoracic aortic aneurysm or dissection is evident. No hilar or mediastinal mass lesion or lymphadenopathy. No pericardial or pleural effusion. Normal morphology of the adrenal glands. No pulmonary infiltrate or consolidation or pulmonary mass lesion. Diffuse the aortic skeletal hyperostosis of the cervical and thoracic spine. IMPRESSION: Status post sternotomy and coronary bypass graft surgery No metastatic disease is evident in the chest. Reviewed, dictated and finalized at [facility]. Reviewed, dictated and finalized at location [facility].
[2023-10-01 07:50] LABS: Basophils Absolute Auto 0.02 K/mm3 (0.00-0.10); Basophils Percent Auto 0.3 % (0.0-1.0); Eosinophils Absolute Auto 0.09 K/mm3 (0.02-0.50); Eosinophils Percent Auto 1.3 % (1.0-6.0); Hematocrit 30.5 % (37.0-46.0); Immature Granulocyte Absolute 0.03 K/mm3 (0.00-0.00); Immature Granulocyte Percent A 0.4 % (0.0-0.0); Lymphocytes Absolute Auto 0.79 K/mm3 (1.10-4.50); Lymphocytes Percent Auto 11.5 % (18.0-42.0); Mean Corpuscular HGB Conc 29.5 g/dL (32-36); Mean Corpuscular Hemoglobin 23.4 pg (27.0-31.0); Mean Corpuscular Volume 79.4 fL (78.0-102.0); Mean Platelet Volume 8.4 fl (8.7-11.0); Monocytes Absolute Auto 0.53 K/mm3 (0.10-0.90); Monocytes Percent Auto 7.7 % (2.0-11.0); Neutrophils Absolute Auto 5.42 K/mm3 (1.70-7.20); Neutrophils Percent Auto 78.8 % (50.0-70.0); Platelet Count Result 236 K/mm3 (150-420); Red Blood Count 3.84 M/mm3 (4.70-6.10); Red Cell Distribution Width 16.3 % (11.6-14.4); White Blood Count 6.9 K/mm3 (4.8-10.8)
[2023-10-01 08:20] LABS: Iron 15 ug/dL (65-175); Percent Iron Saturation 4 % (12-57)
[2023-10-01 08:21] LABS: Estimated Glomerular Filt Rate 53
[2023-10-03 01:38] LABS: Carcinoembryonic Antigen 2.4 ng/mL
== END 2023-10-01 07:33 | disposition home or self-care (01) ==
PROVIDERS: Nurse Practitioner Family; PCP Family Medicine
DX: I10 Essential (primary) hypertension (principal); E11.59 Type 2 diabetes mellitus with other circulatory complications; D50.9 Iron deficiency anemia, unspecified; C18.9 Malignant neoplasm of colon, unspecified
CPT/HCPCS: 36415; 71260; 82378; 83036; 83540; 83550; 85025; Q9967

== ENCOUNTER 2023-10-16 13:20 | Outpatient (CLI) | payer MEDICARE, SELFPAY ==
[2023-10-16 13:40] VITALS: BP 130/46; PULSE 68; RESP 16; TEMP 36.1; O2SAT 99; BMI 31.6
[2023-10-16] MEDS: IRON SUCROSE COMPLEX 100 MG in SODIUM CHLORIDE 0.9% IV 100 ML IVPB (13:55)
--- NOTE | 2023-10-16 15:17 | PC.NURSE ---
Patient's IV infusion completed. IV D/Cd with cath inrtact. Pressure applied and pressure dressing placed. IV site care explained. No c/o offered.
== END 2023-10-16 13:21 | disposition home or self-care (01) ==
LOC: CHSTREATRM 13:21
PROVIDERS: PCP Family Medicine; Visit Provider Family Medicine
DX: K92.1 Melena (principal)
CPT/HCPCS: 96365; J1756

== ENCOUNTER 2023-10-19 09:44 | Outpatient (CLI) | payer MEDICARE, SELFPAY ==
[2023-10-19 10:07] VITALS: BP 98/45; PULSE 67; RESP 16; TEMP 36.6; O2SAT 100; BMI 31.6
--- NOTE | 2023-10-19 10:09 | PC.NURSE ---
1015 Pt blood pressure low. Patient is asymptomatic with this. Spoke with Mary Gordon RN decided to proceed with infusion and recheck BP near end.
[2023-10-19] MEDS: IRON SUCROSE COMPLEX 100 MG in SODIUM CHLORIDE 0.9% IV 100 ML IVPB (10:22)
[2023-10-19 11:32] VITALS: BP 123/54; PULSE 67; RESP 16; TEMP 36.7; O2SAT 98
--- NOTE | 2023-10-19 11:35 | PC.NURSE ---
1130 Patient ambulated to elevator without difficulty. B/P has come up nicely. Patient states he feels well.
== END 2023-10-19 09:45 | disposition home or self-care (01) ==
LOC: CHSTREATRM 09:48
PROVIDERS: PCP Family Medicine; Visit Provider Family Medicine
DX: K92.1 Melena (principal)
CPT/HCPCS: 96365; 96366; J1756

== ENCOUNTER 2023-10-22 09:33 | Outpatient (CLI) | payer MEDICARE, SELFPAY ==
[2023-10-22 09:47] VITALS: BP 131/58; PULSE 71; RESP 16; TEMP 36.2; O2SAT 100; BMI 30.9
[2023-10-22] MEDS: IRON SUCROSE COMPLEX 100 MG in SODIUM CHLORIDE 0.9% IV 100 ML IVPB (10:13)
[2023-10-22 11:21] VITALS: BP 152/67; PULSE 78; RESP 16; TEMP 36.2; O2SAT 100
== END 2023-10-22 09:34 | disposition home or self-care (01) ==
LOC: CHSTREATRM 09:35
PROVIDERS: PCP Family Medicine; Visit Provider Family Medicine
DX: K92.1 Melena (principal)
CPT/HCPCS: 96365; J1756

== ENCOUNTER 2023-10-31 20:01 | Outpatient (CLI) | payer MEDICARE, SELFPAY ==
--- NOTE | 2023-11-06 19:28 | WPDSLEEPSTUD ---
Sleep Study Date of Study: 10/31/23 Ordering Provider: Kaiden Marshall DO Interpreting Physician: Addie Glass MD Sleep Study Type: Split Polysomnogram Height: 1.78 m Weight: 97.522 kg Body Mass Index: 30.8 Neck Circumference (inches): 16.5 [place]: 7 Reason for Sleep Study Multiple nighttime awakenings; history of obstructive sleep apnea on CPAP for 6-7 years Sleep History Santo Miller is a 72-year-old man with obstructive sleep apnea who has been on CPAP for the past 6-7 years. His sleep has become less refreshing. He never awakens from sleep feeling short of breath. He never wakes at night with heartburn, belching or coughing.??He always snores loudly enough that others complain. He rarely has trouble sleeping when he has a cold. He never wakes up gasping for breath during the night. He never has breathing problems at night. He never sweats excessively at night. He never notices his heart pounding or beating irregularly during the night. He rarely falls asleep during the day. He rarely falls asleep involuntarily, occasionally falls asleep while driving. He never experiences loss of muscle tone with strong emotion. He does not have daytime difficulties due to sleepiness, he is retired. He never feels paralyzed on waking or falling asleep. He never experiences vivid dreams upon waking or falling asleep. He never feels afraid of going to sleep. He never has nightmares. He never recalls his dreams. He never has thoughts racing through his mind. He never feels sad or depressed. He never feels anxiety. He frequently notices his legs jerk and kick. He occasionally feels crawling or aching feelings in his legs. He occasionally feels leg pain at night. He never has morning jaw pain, never grinds his teeth at night. He is rarely awakened by pain during the night. He occasionally wakes up feeling stiff in the morning, and he occasionally wakes feeling sore or achy. He rarely awakens with pain in his neck, spine, or joints. He has dizziness, fatigue and insomnia. Normal bedtime is 10:30 p.m., falling asleep within 15 minute, waking 4 times at night. When he wakes during the night, he goes to the bathroom, tries to return to sleep. If he can not return to sleep easily he gets up and watches television for 30 minutes to an hour. Wake time is 6:00 a.m.. He typically gets between 5 and 6 hours of sleep at night. He takes no naps in the day. Habits:??Tobacco: Never smoker Caffeine: 3 cups of coffee per day Alcohol: none Recreational substances: none PMF Past Medical History Medical History (Updated 11/06/23 @ 20:31 by Addie Glass MD) Afib BMI 32.0-32.9,adult BPH (benign prostatic hyperplasia) CAD (coronary artery disease) Coronary artery disease involving coronary bypass graft of [place] heart Diverticulosis Dysphagia G tube feedings GERD (gastroesophageal reflux disease) Hypertension associated with diabetes Hypokalemia Lightheadedness Mass of colon Multinodular goiter Obesity JOSE R (obstructive sleep apnea) Saddle embolus Type 2 diabetes mellitus, without long-term current use of insulin Weight loss Surgical History Surgical History H/O carotid endarterectomy 06/2019 History of heart artery stent 1 stent: 03/2005 1 stent: 02/2008 3 stents: 02/2009 1 stent: 12/2013 1 stent: 09/2014 History of lumbar laminectomy 03/2016 Hx of coronary artery bypass graft x7, 1993 S/P percutaneous endoscopic gastrostomy (PEG) tube placement Status post trigger finger release (~2017) Family History Family History Mother , mother at age 58 of [place] No problems noted. Father , father of coronary artery disease at age 55 No problems noted. Other Family history of coronary artery disease Social History Social History (Reviewed 11/06/23
[2023-11-06 20:41] VITALS: BMI 30.8
== END 2023-11-01 06:20 | disposition home or self-care (01) ==
PROVIDERS: PCP Family Medicine; Visit Provider Family Medicine
DX: G47.33 Obstructive sleep apnea (adult) (pediatric) (principal)
CPT/HCPCS: 95811

== ENCOUNTER 2023-11-17 13:32 | Outpatient (CLI) | payer MEDICARE, SELFPAY ==
[2023-11-17 13:46] LABS: Basophils Absolute Auto 0.01 K/mm3 (0.00-0.10); Basophils Percent Auto 0.1 % (0.0-1.0); Eosinophils Absolute Auto 0.08 K/mm3 (0.02-0.50); Eosinophils Percent Auto 0.9 % (1.0-6.0); Hematocrit 26.9 % (37.0-46.0); Hemoglobin 7.9 g/dL (12.4-15.3); Immature Granulocyte Absolute 0.04 K/mm3 (0.00-0.00); Immature Granulocyte Percent A 0.4 % (0.0-0.0); Lymphocytes Percent Auto 7.7 % (18.0-42.0); Mean Corpuscular HGB Conc 29.4 g/dL (32-36); Mean Corpuscular Hemoglobin 23.4 pg (27.0-31.0); Mean Corpuscular Volume 79.8 fL (78.0-102.0); Mean Platelet Volume 8.7 fl (8.7-11.0); Monocytes Percent Auto 6.6 % (2.0-11.0); Neutrophils Absolute Auto 7.72 K/mm3 (1.70-7.20); Neutrophils Percent Auto 84.3 % (50.0-70.0); Platelet Count Result 325 K/mm3 (150-420); Red Blood Count 3.37 M/mm3 (4.70-6.10); Red Cell Distribution Width 16.5 % (11.6-14.4); White Blood Count 9.2 K/mm3 (4.8-10.8)
[2023-11-17 14:00] LABS: Hemoglobin A1C 6.7 % (<5.7)
[2023-11-17 14:38] LABS: Alanine Aminotransferase 21 U/L (16-63); Albumin Level 3.4 g/dL (3.4-5.0); Alkaline Phosphatase 76 U/L (46-116); Anion Gap 11 mmol/L (4-12); Aspartate Amino Transferase 13 U/L (15-37); Bilirubin,Total 0.6 mg/dL (0.00-1.00); Blood Urea Nitrogen 22 mg/dL (7-18); Carbon Dioxide 28 mmol/L (21-32); Chloride 100 mmol/L (98-108); Estimated Glomerular Filt Rate 59; Ferritin 40 ng/mL (26-388); Glucose 191 mg/dL (70-99); Iron 17 ug/dL (65-175); Osmolality Calculated 296 mOsm/kg (285-295); Percent Iron Saturation 5 % (12-57); Potassium 4.4 mmol/L (3.5-5.1); Sodium 139 mmol/L (136-145); Thyroid Stimulating Hormone Reflex 0.67 u/IU/mL (0.36-3.74); Total Protein 6.5 g/dL (6.4-8.2)
== END 2023-11-17 13:33 | disposition home or self-care (01) ==
LOC: CHSLAB 13:33
PROVIDERS: PCP Family Medicine; Visit Provider Family Medicine
DX: E11.9 Type 2 diabetes mellitus without complications (principal); D64.9 Anemia, unspecified; E03.9 Hypothyroidism, unspecified; I10 Essential (primary) hypertension; D50.9 Iron deficiency anemia, unspecified; E11.59 Type 2 diabetes mellitus with other circulatory complications
CPT/HCPCS: 36415; 80053; 82728; 83036; 83540; 83550; 84443; 85025

== ENCOUNTER 2023-11-27 09:45 | Outpatient (CLI) | payer MEDICARE, SELFPAY ==
[2023-11-27 10:00] VITALS: BP 127/59; PULSE 72; RESP 16; TEMP 36.6; O2SAT 98; BMI 30.9
[2023-11-27] MEDS: IRON SUCROSE COMPLEX 100 MG in SODIUM CHLORIDE 0.9% IV 100 ML IVPB (10:15)
[2023-11-27 11:24] VITALS: BP 125/66; PULSE 72; RESP 14
--- NOTE | 2023-11-27 11:26 | PC.NURSE ---
Patient here for IV Venofer #1 of 3. Report had 3 of these few weeks ago and did well with them. Education given. No concerns voiced. IV Venofer administered. SEE MAR/patient care notes. Tolerated well.
== END 2023-11-27 09:46 | disposition home or self-care (01) ==
PROVIDERS: PCP Family Medicine; Visit Provider Family Medicine
DX: K92.1 Melena (principal)
CPT/HCPCS: 96365; J1756

== ENCOUNTER 2023-12-02 09:41 | Outpatient (CLI) | payer MEDICARE, SELFPAY ==
[2023-12-02 09:55] VITALS: BP 112/50; PULSE 78; TEMP 36.3; O2SAT 96
[2023-12-02] MEDS: IRON SUCROSE COMPLEX 100 MG in SODIUM CHLORIDE 0.9% IV 100 ML IVPB (10:16)
[2023-12-02 11:10] VITALS: BP 109/43; PULSE 72; RESP 18
[2023-12-02 12:10] VITALS: BMI 30.9
--- NOTE | 2023-12-02 12:12 | PC.NURSE ---
0955 presents for OP infusion, 1016 infusion started, 1110 infusion complete, tolerated well, saline lock removed with cathlon intact, repeat vital signs completed, at 1115 patient dc ambulatory with no questions, has had venofir in the past and denies needd for education at this time
== END 2023-12-02 09:42 | disposition home or self-care (01) ==
LOC: CHSTREATRM 09:43
PROVIDERS: PCP Family Medicine; Visit Provider Family Medicine
DX: K92.1 Melena (principal)
CPT/HCPCS: 96365; J1756

== ENCOUNTER 2023-12-04 09:42 | Outpatient (CLI) | payer MEDICARE, SELFPAY ==
[2023-12-04 10:00] VITALS: BP 137/64; PULSE 72; RESP 16; TEMP 36.5; O2SAT 98; BMI 30.3
[2023-12-04] MEDS: IRON SUCROSE COMPLEX 100 MG in SODIUM CHLORIDE 0.9% IV 100 ML IVPB (10:05)
[2023-12-04 11:11] VITALS: BP 126/63; PULSE 62; RESP 14
--- NOTE | 2023-12-04 11:12 | PC.NURSE ---
Tolerated #3 of 3 IV Venofer infusions well. SEE MAR/patient care notes.
== END 2023-12-04 09:43 | disposition home or self-care (01) ==
PROVIDERS: PCP Family Medicine; Visit Provider Family Medicine
DX: K92.1 Melena (principal)
CPT/HCPCS: 96365; J1756

== ENCOUNTER 2024-03-09 10:32 | Outpatient (CLI) | payer MEDICARE, SELFPAY ==
[2024-03-09 11:45] LABS: Cholesterol 140 mg/dL (0-200); HDL Direct 54 mg/dL (40-60); LDL Cholesterol Calculated 65 mg/dL (<130); Magnesium 1.6 mg/dL (1.8-2.4); Triglycerides 106 mg/dL (0-150)
[2024-03-09 12:23] LABS: Hemoglobin A1C 7.4 % (<5.7)
== END 2024-03-09 10:33 | disposition home or self-care (01) ==
LOC: CHSLAB 10:35
PROVIDERS: PCP Family Medicine; Visit Provider Family Medicine
DX: C18.9 Malignant neoplasm of colon, unspecified (principal); E11.9 Type 2 diabetes mellitus without complications
CPT/HCPCS: 36415; 80061; 83036; 83735

== ENCOUNTER 2024-08-09 09:28 | Outpatient (CLI) | payer MEDICARE, SELFPAY ==
[2024-08-09 09:45] LABS: Basophils Absolute Auto 0.01 K/mm3 (0.00-0.10); Basophils Percent Auto 0.2 % (0.0-1.0); Eosinophils Absolute Auto 0.02 K/mm3 (0.02-0.50); Eosinophils Percent Auto 0.3 % (1.0-6.0); Hematocrit 40.1 % (37.0-46.0); Hemoglobin 12.8 g/dL (12.4-15.3); Immature Granulocyte Absolute 0.02 K/mm3 (0.00-0.00); Immature Granulocyte Percent A 0.3 % (0.0-0.0); Lymphocytes Absolute Auto 0.71 K/mm3 (1.10-4.50); Mean Corpuscular HGB Conc 31.9 g/dL (32-36); Mean Corpuscular Hemoglobin 29.8 pg (27.0-31.0); Mean Corpuscular Volume 93.5 fL (78.0-102.0); Mean Platelet Volume 9.3 fl (8.7-11.0); Monocytes Absolute Auto 0.76 K/mm3 (0.10-0.90); Monocytes Percent Auto 12.8 % (2.0-11.0); Neutrophils Absolute Auto 4.42 K/mm3 (1.70-7.20); Neutrophils Percent Auto 74.4 % (50.0-70.0); Platelet Count Result 150 K/mm3 (150-420); Red Blood Count 4.29 M/mm3 (4.70-6.10); Red Cell Distribution Width 14.2 % (11.6-14.4); White Blood Count 5.9 K/mm3 (4.8-10.8)
--- OUTSIDE RECORDS SUMMARY | 2024-08-09 10:07 | XMS_ITS | Encounter Summary ---
Author Organization [facility] Healthcare Address [facility] [place] [address] Care Team Providers Care Sales Inspector Name Role Phone Timbo Cardoso MD Unavailable Mike Ledezma MD PhD Unavailable [phone] Esdras Conway MD Unavailable [phone] Kaiden Marshall DO Primary Care Provider Edelmira Alexandre NP Unavailable [phone] Jonelle Deluna MD Unavailable [phone] Gilmer Menezes MD Unavailable [phone] Encounter Details Date Type Department Care Team (Late st Contact Info) Description 02/11/2024 Telephone [facility] [address] [place] [address] Tiffany Kennedy, RN Social History Tobacco Use Types Packs/Day Years Used Date Smoking Tobacco: Never Smokeless Tobacco: Never Alcohol Use Standard Drinks/Week Comments Yes 0 (1 standard drink = 0.6 oz pur e alcohol) very rare wine AUDIT-C Answer Date Recorded Q1: How often do you have a drink containing alcohol? Never 12/29/2023 Q2: How many drinks containi ng alcohol do you have on a typical day when you are drinking? Patient does not drink Q3: How often do you have si x or more drinks on one occasion? Never 12/29/2023 Personal Safety Answer Date Recorded Have you ever been in or are you currently in a harmful physical or emotional relationship or is someone making you feel afraid or unsafe? 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 Gender Identity Male 01/29/2021 1:19 PM CDT Sexual Orientation Not on file documented as of this encounter Plan of Treatment Not on file documented as of this encounter Visit Diagnoses Not on filedocumented in this encounter Care Teams Sales Inspector Relationship Specialty Start Date End Date Kaiden Marshall DO [address] [place] [address] PCP - General Family Medicine 10/10/21 Timbo Cardoso MD Consulting Physician Neurology 10/18/20 Mike Ledezma MD PhD [address] [place] [address] Radiation Oncologist Radiation Oncology 02/21/21 Esdras Conway MD [address] [place] [address] Referring Physician Urology 02/21/21 04/20/24 Edelmira Alexandre NP [address] [place] [address] Registered Nurse Family Medicine 09/08/23 Jonelle Deluna MD [address] [phone] [place] [address] Surgeon Colon and Rectal Surgery 09/29/23 Gilmer Menezes MD [address] [facility] [address] [place] [address] Medical Oncologist/Put In Beat Adjuster Medical Oncology 11/24/23 documented as of this encounter
--- OUTSIDE RECORDS SUMMARY | 2024-08-09 10:07 | XMS_ITS | Encounter Summary ---
Author Organization [facility] Address [address] [place] [address] Care Team Providers Care Electrical Systems Designer Name Role Phone Rita Lee MD Primary Care Provider Chintan Martinez MD Unavailable Unavailabl Pérez Ambrocio MD Primary Care Provider [phone] Giuseppe Kulkarni MD Primary Care Provider Angela Miramontes [facility] Unavailable [phone] Cabrera Crouch MD Unavailable [phone] Teresa Morin APRN SENIOR C SOFTWARE ENGINEER-C Unavailable Ang Hudson MD Unavailable Kaiden Marshall DO Primary Care Provider [phone] Kaiden Marshall DO Primary Care Provider [phone] Matteo Denise MD Unavailable [phone] Jonelle Deluna MD Unavailable [phone] Houston Beaver MD Unavailable [phone] Encounter Details Date Type Department Care Team (Late st Contact Info) Description 05/12/2017 Abstract [facility] [address] [place] [address] Chintan Spears MD Social History Tobacco Use Types Packs/Day Years Used Date Smoking Tobacco: Never Smokeless Tobacco: Never Alcohol Use Standard Drinks/Week Comments Yes 0 (1 standard drink = 0.6 oz pur e alcohol) Occasionally Sex and Gender Information Value Date Recorded Sex Assigned at Male 05/25/2024 9:04 AM SLEEP MANAGER Legal Sex Male 9:59 PM CDT Gender Identity Not on file Sexual Orientation Not on file Occupation Industry Job Start Date Job End Date Retired Not on file Not on file Not on file documented as of this encounter Plan of Treatment Upcoming Encounters Date Type Department Care Team (Late st Contact Info) Description 12/27/2024 9:30 AM CDT Appointment [facility] [place] [address] Ang Hudson MD [address] [facility], [address] [place] [address] 12/27/2024 10:00 AM CDT Office Visit [facility] [address] [place] [address] nAg Hudson MD [address] [facility], [address] [place] [address] 06/02/2025 10:00 AM SLEEP MANAGER Office Visit [facility] [address] [place] [address] Teresa Morin, QUALITY CLOTH TESTER, SENIOR C SOFTWARE ENGINEER-C [address] [facility] [address] [place] [phone] documented as of this encounter Procedures Procedure Name Priority Date/Time Associated Diagnosis Comments SED RATE, ERYTHROCYTE (ESR) Routine 05/08/2017 documented in this encounter Results * SED RATE, ERYTHROCYTE (ESR) (05/08/2017) SED RATE 4 0 - 20 mm/hr HGB A1C 6.8 C-REACTIVE PROTEIN <0.2 05/08/2017 us Doc [facility] LABORATORY Final Result documented in this encounter Visit Diagnoses Not on filedocumented in this encounter Additional Health Concerns Infection Onset Date Last Indicated Resolved Time COVID-19 Rule Out 11/19/2019 11/19/2019 11/20/2019 10:43 PM CDT COVID-19 Rule Out 12/24/2019 12/24/2019 12/25/2019 12:13 PM CDT COVID-19 Rule Out 07/31/2020 07/31/2020 08/01/2020 7:36 PM CDT documented as of this encounter Care Teams Electrical Systems Designer Relationship Specialty Start Date End Date Rita Lee MD PCP - General SURGERY 01/03/16 11/15/18 Pérez Herr MD [address] [place] [address] PCP - General FAMILY PRACTICE 11/16/18 06/08/19 Giuseppe Kulkarni MD [address] [place] [address] [address] [place] [address] PCP - General FAMILY PRACTICE 06/09/19 10/14/21 Kaiden Marshall DO [address] [place] [address] PCP - General FAMILY PRACTICE 10/15/21 11/11/22 Kaiden Marshall DO [address] [place] [address] PCP - General FAMILY PRACTICE 11/12/22 Chintan Spears MD [place] Online Marketing Specialist CARDIOVASCULAR DISEASE 01/03/16 12/20/23 Angela Miramontes, AGACNP-BC [address] [place] [address] NURSE PRACTITIONER 07/07/19 07/05/23 Cabrera Crouch MD [address] [id number] CARDIOTHORACIC SURGERY 10/26/19 4 Teresa Morin APRN, SENIOR C SOFTWARE ENGINEER-C [address] [place] [address] NURSE PRACTITIONER 12/01/19 Ang Hudson MD [address] [place] [phone] Vascular/Online Marketing Specialist INTERNAL MEDICINE 01/05/20 Matteo Denise MD [address] [place] [address] Consulting Physician ORTHOPAEDIC SURGERY 07/06/23 Jonelel Deluna MD [address] [place] [address] COLON/RECTAL SURGERY 10/06/23 Houston Beaver MD [address] [place] [address] Consulting Physician INTERVENTIONAL CARDIOLOGY 05/25/24 documented as of this encounter
--- OUTSIDE RECORDS SUMMARY | 2024-08-09 10:07 | XMS_ITS | Encounter Summary ---
Author Organization [facility] Address [address] [place] [address] Care Team Providers Care Diesel Fitter Mechanic Name Role Phone Chintan Spears MD Unavailable Unavailabl Giuseppe Holden MD Primary Care Provider Angela Miramontes [facility] Unavailable [phone] Cabrera Crouch MD Unavailable [phone] Teresa Morin APRN, JOB SERVICE SPECIALIST-C Unavailable Ang Hudson MD Unavailable Kaiden Marshall DO Primary Care Provider [phone] Kaiden Marshall DO Primary Care Provider [phone] Matteo Denise MD Unavailable [phone] Jonelle Deluna MD Unavailable [phone] Houston Beaver MD Unavailable [phone] Encounter Details Date Type Department Care Team (Late st Contact Info) Description 08/09/2020 Abstract [facility] [address] [place] [phone] Chintan Spears MD Social History Tobacco Use Types Packs/Day Years Used Date Smoking Tobacco: Never Smokeless Tobacco: Never Alcohol Use Standard Drinks/Week Comments Yes 0 (1 standard drink = 0.6 oz pur e alcohol) rarely Sex and Gender Information Value Date Recorded Sex Assigned at Male 05/25/2024 9:04 AM LEAD RUBY ON RAILS DEVELOPER Legal Sex Male 9:59 PM CDT Gender Identity Not on file Sexual Orientation Not on file Occupation Industry Job Start Date Job End Date Retired Not on file Not on file Not on file COVID-19 Exposure Response Date Recorded In the last month, have you been in contact with someone who was confirmed or suspected to have Coronavirus / COVID-19? No / Unsure 08/06/2020 8:55 AM CDT documented as of this encounter Functional Status * RETIRED Are you deaf or do you have serious difficulty hearing Answer Date of Assessment Author Status No 07/26/2019 6:17 PM CDT Activ e * RETIRED Are you blind or do you have serious difficulty seeing, even when wearing glasses? Answer Date of Assessment Author Status No 07/26/2019 6:17 PM CDT Activ e * Do you have serious difficulty walking or climbing stairs? Answer Date of Assessment Author Status No 07/26/2019 6:17 PM CDT Karely Callahan RN A ctive * Do you have difficulty dressing or bathing? Answer Date of Assessment Author Status No 07/26/2019 6:17 PM CDT Karely Callahan RN A ctive * Because of a physical, mental, or emotional condition, do you have difficulty doing errands alone such as visiting a doctor's office or shopping? Answer Date of Assessment Author Status No 07/26/2019 6:17 PM CDT Karely Callahan RN A ctive documented as of this encounter Mental Status * Because of a physical, mental, or emotional condition, do you have serious difficulty concentrating, remembering, or making decisions? Answer Entry Date Author Status No 07/26/2019 6:17 PM CDT Karely Callahan RN A ctive documented in this encounter Plan of Treatment Upcoming Encounters Date Type Department Care Team (Late st Contact Info) Description 12/27/2024 9:30 AM CDT Appointment [facility] [address] [place] [address] Ang Hudson MD [address] [facility], [address] [place] [address] 12/27/2024 10:00 AM CDT Office Visit [facility] [address] [facility] [place] [phone] Ang Hudson MD [address] [facility] [place] [address] 06/02/2025 10:00 AM LEAD RUBY ON RAILS DEVELOPER Office Visit [facility] [address] [place] [address] Teresa Morin, ALLY, JOB SERVICE SPECIALIST-C [address] [facility] [address] [place] [address] documented as of this encounter Visit Diagnoses Not on filedocumented in this encounter Care Teams Diesel Fitter Mechanic Relationship Specialty Start Date End Date Giuseppe Kulkarni MD [address] [facility] [address] [place] [address] PCP - General FAMILY PRACTICE 06/09/19 10/14/21 Kaiden Marshall DO [address] [place] [address] PCP - General FAMILY PRACTICE 10/15/21 11/11/22 Kaiden Marshall DO [address] [place] [address] PCP - General FAMILY PRACTICE 11/12/22 Chintan Spears MD [place] Tube Lancer CARDIOVASCULAR DISEASE 01/03/16 12/20/23 Angela Miramontes AGACNP- [address] [place] [address] NURSE PRACTITIONER 07/07/19 07/05/23 Cabrera Crouch MD [address] [place] [address] CARDIOTHORACIC SURGERY 10/26/19 4 Teresa Morin APRN, JOB SERVICE SPECIALIST-C [address] [facility] [address] [place] [address] NURSE PRACTITIONER 12/01/19 Ang Hudson MD [address] [facility] [address] [place] [address] Vascular/Tube Lancer INTERNAL MEDICINE 01/05/20 Matteo Denise MD [address] [place] [address] Consulting Physician ORTHOPAEDIC SURGERY 07/06/23 Jonelle Deluna MD [address] [place] [address] COLON/RECTAL SURGERY 10/06/23 Houston Beaver MD [address] [place] [address] Consulting Physician INTERVENTIONAL CARDIOLOGY 05/25/24 documented as of this encounter
--- OUTSIDE RECORDS SUMMARY | 2024-08-09 10:07 | XMS_ITS | Referral Summary ---
Author Organization [facility] Address [address] [place] [address] Care Team Providers Care Sparmaker Name Role Phone Timbo Cardoso MD Unavailable Mike Ledezma MD PhD Unavailable [phone] Kaiden Marshall DO Primary Care Provider Edelmira Alexandre REPORTING LEAD Unavailable [phone] Jonelle Deluna MD Unavailable [phone] Gilmer Menezes MD Unavailable + [phone] Encounters Date Type Department Care Team Description 08/01/2024 Telephone [facility] Radiation Oncology [address] [place] [phone] Henrry Darby RN 07/27/2024 Orders Only [facility] [address] [place] [address] Bryanna Hall NP 07/08/2024 Telephone [facility]iation [facility]cology [address] [place] [phone] Emily Lind MLT 07/07/2024 Orders Only [facility] Oncology [address] [place] [address] [address] [place] [address] Moraima Jacob, RN Malignant neoplasm of colon, unspecified part of colon (HCC) (Primary Dx) 07/05/2024 11:30 AM [facility] Clinical Support [facility] at [address] [address] Malignant neoplasm of colon, unspecified part of colon (HCC) 07/05/2024 12:00 PM OPERATIONS INTELLIGENCE SUPERINTENDENT Office Visit [facility] [address] [place] [phone] Gilmer Menezes MD Malignant neoplasm of colon, unspecified part of colon (HCC) (Primary Dx) 06/28/2024 11:27 AM OPERATIONS INTELLIGENCE SUPERINTENDENT - 06/28/2024 11:59 PM OPERATIONS INTELLIGENCE SUPERINTENDENT Hospital Encounter [facility] Medical Office Building [address] [place] [address] Malignant neoplasm of colon, unspecified part of colon (HCC) Discharge Disposition: Discharge to home or self care 06/14/2024 Orders Only [facility] [address] [place] [phone] Gilmer Menezes MD 06/14/2024 Orders Only [facility] [address] [place] [phone] Gilmer Menezes MD 06/14/2024 11:30 AM OPERATIONS INTELLIGENCE SUPERINTENDENT Infusion [facility] at [address] [phone] Malignant neoplasm of colon, unspecified part of colon (HCC) (Primary Dx) 06/14/2024 11:00 AM OPERATIONS INTELLIGENCE SUPERINTENDENT Clinical Support [facility] at [address] [address] Malignant neoplasm of colon, unspecified part of colon (HCC) 05/31/2024 Orders Only [facility] On[facility] [address] [place] [phone] Moraima Jacob, FRANDY 05/31/2024 12:00 PM OPERATIONS INTELLIGENCE SUPERINTENDENT Clinical Support [facility] at [address] [address] Malignant neoplasm of colon, unspecified part of colon (HCC) 05/31/2024 1:00 PM OPERATIONS INTELLIGENCE SUPERINTENDENT Infusion [facility] at [address] [phone] Malignant neoplasm of colon, unspecified part of colon (HCC) (Primary Dx) 05/31/2024 12:30 PM OPERATIONS INTELLIGENCE SUPERINTENDENT Office Visit [facility] On[facility] [address] [place] [phone] Gilmer Menezes MD Malignant neoplasm of colon, unspecified part of colon (HCC) (Primary Dx) 05/17/2024 12:00 PM OPERATIONS INTELLIGENCE SUPERINTENDENT Clinical Support [facility] at [address] [address] Malignant neoplasm of colon, unspecified part of colon (HCC) 05/17/2024 1:00 PM OPERATIONS INTELLIGENCE SUPERINTENDENT Infusion [facility] at [address] [phone] Malignant neoplasm of colon, unspecified part of colon (HCC) (Primary Dx) 05/16/2024 Orders Only [facility] [address] [place] [phone] Gilmer Menezes MD from Last 3 Months Allergies No known active allergies Medications amLODIPine (NORVASC) 2.5 mg tablet Take 1 tablet (2.5 mg total) by mouth 2 (two) times a day 03/27/20 20 Active atorvastatin (LIPITOR) 80 mg tablet Take 1 tablet (80 mg total) by mouth nightly 05/03/20 20 Active chlorthalidone 25 mg tablet Take 1 tablet (25 mg total) by mouth every morning 04/25/20 20 Active irbesartan (AVAPRO) 300 mg tablet Take 0.5 tablets (150 mg total) by mouth 2 (two) times a day 04/25/20 20 Active nitroglycerin (NITROSTAT) 0.[address] 1 tablet (0.4 mg total) under the tongue every 5 (five) minutes as needed 11/10/19 20 Active diphenhydrAMINE-ac etaminophen (TYLENOL PM) 25-500 mg tablet Take 1 tablet by mouth nightly Active Eliquis 5 mg tabletIndications: VTE Prophylaxis,atrial fibrillation Take 1 tablet (5 mg total) by mouth 2 (two) times a day 12/11/19 21 Active magnesium gluconate (MAGONATE) 27.5 mg magne- sium (500 mg) tablet Take 1 tablet (500 mg total) by mouth every morning Active pantoprazole DR (PROTONIX) 40 mg EC tablet Take 1 tablet (40 mg total) by mouth every morning Active loratadine 10 mg capsule Take 1 tablet by mouth every morning Active famotidine (PEPCID) 40 mg tablet Take 1 tablet (40 mg total) by mouth every evening Active rOPINIRole (REQUIP) 1 mg tablet Take 1 tablet (1 mg total) by mouth 2 (two) times a day Active metFORMIN XR (GLUCOPHAGE XR) 500 mg 24 hr tablet Take 1 tablet (500 mg total) by mouth every evening 10/06/19 24 Active acidophilus-pectin , citrus 100 million cell-10 mg capsule Take 1 tablet by mouth every morning Active dapagliflozin propanediol (FARXIGA) 10 mg tablet 1 tablet (10 mg total) Active aspirin 81 mg chewable tablet Take 1 tablet (81 mg total) by mouth daily Active isosorbide mononitrate ER (IMDUR) 60 mg 24 hr tablet Take 1 tablet (60 mg total) by mouth daily 12/17/19 24 Active olopatadine (PATANOL) 0.1 % ophthalmic solutionIndication s:Allergic Conjunctivitis Administer 1 drop into both eyes 2 (two) times a day 5 mL 2 01/27/20 24 Active gentamicin (GARAMYCIN) 0.3 % ophthalmic solution Administer 1 drop into both eyes daily 5 mL 3 03/22/20 24 Active prochlorperazine (Compazine) 10 mg tabletIndications: Malignant neoplasm of colon, unspecified part of colon (HCC) Take 1 tablet (10 mg total) by mouth every 6 (six) hours as needed for nausea or vomiting 30 tablet 3 04/19/20 24 Active fluticasone propionate (FLONASE) 50 mcg/actuation nasal spray Administer 1 spray into each nostril daily as needed for rhinitis or allergies 1 each 1 04/19/20 24 Active loteprednol (LOTEMAX) 0.5 % ophthalmic suspension Administer 1 drop into both eyes 4 (four) times a day for 7 days 5 mL 07/05/19 25 025 Active Problems Problem Noted Date Diagnosed Date DVT of lower extremity, bilateral 03/07/2024 Iron deficiency anemia due to chronic blood loss 01/13/2024 Anemia 01/12/2024 Colon cancer 11/02/2023 Acute postoperative abdominal pain 11/02/2023 Coronary artery disease invo lving [place] coronary artery of [place] heart 05/02/2023 Iron deficiency anemia 05/12/2022 AV block 01/11/2022 Ectopic atrial rhythm 01/11/2022 Nonsustained ventricular tachycardia 01/11/2022 Premature ventricular contractions (PVCs) (VPCs) 01/11/2022 Chronic fatigue 11/04/2021 Episodic lightheadedness 11/04/2021 Exercise intolerance 11/04/2021 Longstanding persistent atrial fibrillation 10/10 Hx of CABG 11/04/2021 Dyspnea on exertion 11/04/2021 Symptomatic bradycardia 11/04/2021 Prostate cancer 08/15/2020 Cancer Staging:Pathologic stage from 10/16/2020:Stage IIIC(pT2, pN0, cM0, PSA: 2, Grade Group: 5) - Signed by Mike Ledezma MD PhD on 02/21/2021 Overview (08/15/2020): Added automatically from request for surgery [id number] Assessment & Plan (02/12/2022 11:29 AM CDT): -He denies bone pain. Small amount of urinary leakage every so often but nothing that is significant or bothersome. Denies issues with ED. -Continues to see rad onc regularly. -We discussed urine dip results with glucose and some blood. Patient is on eliquis. Denies smoking hx. Likely related to hx of radiation and Eliquis. No gross hematuria or dysuria. PLAN: -Continue to follow rad onc for regular PSA. -Follow up in 1 year or sooner. Kidney stone 07/12/2020 Overview (07/12/2020): Added automatically from request for surgery [id number] Rising PSA following treatme nt for malignant neoplasm of prostate 04/20/2020 Overview (04/20/2020): Added automatically from request for surgery [id number] Elevated PSA 04/20/2020 Overview (03/07/2024): Added automatically from request for surgery [id number] Edema of left lower extremity 02/28/2020 History of DVT (deep vein thrombosis) 01/10/2020 Atrial fibrillation 11/10/2019 Acute pulmonary embolism 07/26/2019 Carotid artery stenosis without cerebral infarct ion 06/22/2019 Trigger ring finger of left hand 02/15/2019 Tendinitis of right rotator cuff 07/09/2018 Shoulder pain, right 07/06/2018 Essential (primary) hypertension 08/22/2016 Mixed hyperlipidemia 01/07/2016 S/P coronary artery stent placement 01/07/2016 Type 2 diabetes mellitus 01/07/2016 Pulmonary hypertension 11/13/2015 Cor pulmonale 05/16/2015 SOB (shortness of breath) 11/21/2014 JOSE R (obstructive sleep apnea) 11/14/2014 Resolved Problems Problem Noted Date Diagnosed Date Resolved Date Malignant neoplasm of colon 10/06/2023 11/24/2023 Social History Tobacco Use Types Packs/Day Years Used Date Smoking Tobacco: Never Smokeless Tobacco: Never Tobacco Cessation:Counseling Given: Not Answered Alcohol Use Standard Drinks/Week Comments Yes 0 (1 standard drink = 0.6 oz pur e alcohol) very rare wine AUDIT-C Answer Date Recorded Q1: How often do you have a drink containing alcohol? Never 02/23/2024 Q2: How many drinks containi ng alcohol do you have on a typical day when you are drinking? Patient does not drink Q3: How often do you have si x or more drinks on one occasion? Never 02/23/2024 Personal Safety Answer Date Recorded Have you ever been in or are you currently in a harmful physical or emotional relationship or is someone making you feel afraid or unsafe? Denies 12/28/2023 Sex and Gender Information Value Date Recorded Sex Assigned at Not on file Legal Sex Male 3:59 PM OPERATIONS INTELLIGENCE SUPERINTENDENT Gender Identity Male 01/29/2021 1:19 PM CDT Sexual Orientation Not on file Last Filed Vital Signs Vital Sign Reading Time Taken Comments Blood Pressure 136/70 07/05/2024 11:48 AM OPERATIONS INTELLIGENCE SUPERINTENDENT Pulse 75 07/05/2024 11:48 AM OPERATIONS INTELLIGENCE SUPERINTENDENT Temperature 36.3 C (97.3 F) 07/05/2024 11:48 AM OPERATIONS INTELLIGENCE SUPERINTENDENT Respiratory Rate 16 07/05/2024 11:48 AM OPERATIONS INTELLIGENCE SUPERINTENDENT Oxygen Saturation 100% 07/05/2024 11:48 AM OPERATIONS INTELLIGENCE SUPERINTENDENT Inhaled Oxygen Concentration - - Weight 95.7 kg (211 lb) 07/05/2024 11:48 AM OPERATIONS INTELLIGENCE SUPERINTENDENT Height 174 cm (5' 8.5 ) 04/19/2024 10:48 AM OPERATIONS INTELLIGENCE SUPERINTENDENT Body Mass Index 31.62 04/19/2024 10:48 AM OPERATIONS INTELLIGENCE SUPERINTENDENT Plan of Treatment Not on file Medical Devices Implanted Type Area Account [employer] Device Identifier Shelf Expiration Date Model / Serial / Lot Stents Implanted:Qty: 11 Bilateral: Heart Description:2005,2007,2009,2 014,2014,2019,2020 Stents and bypass 1992 [employer] Xcela Power Port 8fr [id number] - [id number] Implanted:Qty: 1 on 12/28/2023 at [facility] [employer] 06/20/2028 [id number] / / [id number] Explanted Type Area Account [employer] Device Identifier Shelf Expiration Date Model / Serial / Lot [employer] Eloy 180-223 Contour 6fr 26cm Large Inner Lumen Low Profile Bladder Melvin Taper Latex Free - [id number] Implanted:Qty: 1 on 09/13/2020 by Esdras Conway MD at [facility] Explanted:Qty: 1 on 10/16/2020 at [facility] [employer] Eloy 05/21/2023 [id number] / / [id number] Procedures Procedure Name Priority Date/Time Associated Diagnosis Comments PSA DIAGNOSTIC Routine 07/27/2024 2:53 PM CDT EGFR Routine 07/05/2024 11:40 AM OPERATIONS INTELLIGENCE SUPERINTENDENT Malignant neoplasm of colon, unspecified part of colon (HCC) MANUAL DIFFERENTIAL Routine 07/05/2024 1 1:40 AM OPERATIONS INTELLIGENCE SUPERINTENDENT Malignant neoplasm of colon, unspecified part of colon (HCC) DIFFERENTIAL AUTO Routine 07/05/2024 11: 40 AM OPERATIONS INTELLIGENCE SUPERINTENDENT Malignant neoplasm of colon, unspecified part of colon (HCC) CBC WITH AUTO DIFFERENTIAL Routine 07/05/2024 11:40 AM OPERATIONS INTELLIGENCE SUPERINTENDENT Malignant neoplasm of colon, unspecified part of colon (HCC) CEA Routine 07/05/2024 11:40 AM OPERATIONS INTELLIGENCE SUPERINTENDENT Malignant neoplasm of colon, unspecified part of colon (HCC) COMPREHENSIVE METABOLIC PANEL Routine 07/05/2024 11:40 AM OPERATIONS INTELLIGENCE SUPERINTENDENT Malignant neoplasm of colon, unspecified part of colon (HCC) FERRITIN Routine 07/05/2024 11:40 AM OPERATIONS INTELLIGENCE SUPERINTENDENT Malignant neoplasm of colon, unspecified part of colon (HCC) IRON PROFILE W/ IBC Routine 07/05/2024 1 1:40 AM OPERATIONS INTELLIGENCE SUPERINTENDENT Malignant neoplasm of colon, unspecified part of colon (HCC) CT CHEST ABDOMEN PELVIS W CONTRAST Schedule Routine, Read Routine (OP Routine) 06/28/2024 11:51 AM OPERATIONS INTELLIGENCE SUPERINTENDENT Malignant neoplasm of colon, unspecified part of colon (HCC) EGFR STAT 06/14/2024 11:15 AM OPERATIONS INTELLIGENCE SUPERINTENDENT Malignant neoplasm of colon, unspecified part of colon (HCC) DIFFERENTIAL AUTO Routine 06/14/2024 11: 15 AM OPERATIONS INTELLIGENCE SUPERINTENDENT Malignant neoplasm of colon, unspecified part of colon (HCC) CBC WITH AUTO DIFFERENTIAL Routine 06/14/2024 11:15 AM OPERATIONS INTELLIGENCE SUPERINTENDENT Malignant neoplasm of colon, unspecified part of colon (HCC) COMPREHENSIVE METABOLIC PANEL STAT 06/14/2024 11:15 AM OPERATIONS INTELLIGENCE SUPERINTENDENT Malignant neoplasm of colon, unspecified part of colon (HCC) CEA Routine 06/14/2024 11:15 AM OPERATIONS INTELLIGENCE SUPERINTENDENT Malignant neoplasm of colon, unspecified part of colon (HCC) EGFR STAT 05/31/2024 12:15 PM OPERATIONS INTELLIGENCE SUPERINTENDENT Malignant neoplasm of colon, unspecified part of colon (HCC) DIFFERENTIAL AUTO Routine 05/31/2024 12: 15 PM OPERATIONS INTELLIGENCE SUPERINTENDENT Malignant neoplasm of colon, unspecified part of colon (HCC) CBC WITH AUTO DIFFERENTIAL Routine 05/31/2024 12:15 PM OPERATIONS INTELLIGENCE SUPERINTENDENT Malignant neoplasm of colon, unspecified part of colon (HCC) CEA Routine 05/31/2024 12:15 PM OPERATIONS INTELLIGENCE SUPERINTENDENT Malignant neoplasm of colon, unspecified part of colon (HCC) COMPREHENSIVE METABOLIC PANEL STAT 05/31/2024 12:15 PM OPERATIONS INTELLIGENCE SUPERINTENDENT Malignant neoplasm of colon, unspecified part of colon (HCC) EGFR STAT 05/17/2024 11:47 AM OPERATIONS INTELLIGENCE SUPERINTENDENT Malignant neoplasm of colon, unspecified part of colon (HCC) DIFFERENTIAL AUTO Routine 05/17/2024 11: 47 AM OPERATIONS INTELLIGENCE SUPERINTENDENT Malignant neoplasm of colon, unspecified part of colon (HCC) CBC WITH AUTO DIFFERENTIAL Routine 05/17/2024 11:47 AM OPERATIONS INTELLIGENCE SUPERINTENDENT Malignant neoplasm of colon, unspecified part of colon (HCC) COMPREHENSIVE METABOLIC PANEL STAT 05/17/2024 11:47 AM OPERATIONS INTELLIGENCE SUPERINTENDENT Malignant neoplasm of colon, unspecified part of colon (HCC) CEA Routine 05/17/2024 11:47 AM OPERATIONS INTELLIGENCE SUPERINTENDENT Malignant neoplasm of colon, unspecified part of colon (HCC) from Last 3 Months Results * PSA diagnostic (07/27/2024 2:53 PM CDT) Blood us Bryanna Hall REPORTING LEAD LAB BLOOD ORDERABLES Edited R esult - Final [facility] [address] [place] [address], [facility] * eGFR (07/05/2024 11:40 AM OPERATIONS INTELLIGENCE SUPERINTENDENT) eGFR 63 >=60 mL/min/1. 73 m2 Comment: Interpretive Data Reference Interval Normal >/= 90 mL/min/1.73m2 Mildly decreased* 60 - 89 mL/min/1.73m2 Mildly to moderately decreased 45 - 59 mL/min/1.73m2 Moderately to severely decreased 30 - 44 mL/min/1.73m2 Severely decreased 15 - 29 mL/min/1.73m2 Kidney Failure < 15 mL/min/1.73m2 *Relative to young adult level Estimated glomerular filtration rate is determined by the 2020 CKD-EPI equation recommended by the National Kidney Foundation (A Unifying Approach to GFR Estimation: Recommendations of the NKF-ASK Task Force on Reassessing the Inclusion of Race in Diagnosing Kidney Disease, JASN 2020). The CKD-EPI equation should not be used for patients with unstable renal function and has not been validated in children and those over 70. Current interpretive data was last reviewed 2021. Testing performed by: [address] [address] Blood 07/05/2024 11:4 0 AM OPERATIONS INTELLIGENCE SUPERINTENDENT 07/05/2024 11:43 AM OPERATIONS INTELLIGENCE SUPERINTENDENT us Gilmer Menezes MD LAB BLOOD ORDERABLES Final Result [facility] [address] [facility] Department [place] [address] * Differential, auto (07/05/2024 11:40 AM OPERATIONS INTELLIGENCE SUPERINTENDENT) Neutrophil abs 3.6 1.5 - 6.5 K/cumm Comment:Testing performed by : [address] [address] Imm gran abs 0.0 0.0 - 0.1 K/cumm MEGAN Comment:Testing performed by : [address] [address] Lymphocyte abs 0.9 0.8 - 3.3 K/cumm MEGAN Comment:Testing performed by : [address] [address] Monocyte abs 0.6 0.2 - 0.8 K/cumm MEGAN Comment:Testing performed by : [address] [address] Eosinophil abs 0.0 0.0 - 0.5 K/cumm [facility] Comment:Testing performed by : [address] [address] Basophil abs 0.0 0.0 - 0.1 K/cumm [facility] Comment:Testing performed by : [address] [address] Neutrophil pct 69.2 % [facility] Comment: Interpretive Data Percent cell count reference ranges are not reported, since discordance with absolute values may lead to misinterpretation of CBC data. Current Interpretive Data was last revised on 2017. Testing performed by: [address] [address] Imm gran pct 0.2 % [facility] Comment: Interpretive Data Percent cell count reference ranges are not reported, since discordance with absolute values may lead to misinterpretation of CBC data. Current Interpretive Data was last revised on 2017. Testing performed by: [address] [address] Lymphocyte pct 17.7 % [facility] Comment: Interpretive Data Percent cell count reference ranges are not reported, since discordance with absolute values may lead to misinterpretation of CBC data. Current Interpretive Data was last revised on 2017. Testing performed by: [address] [address] Monocyte pct 11.9 % [facility] Comment: Interpretive Data Percent cell count reference ranges are not reported, since discordance with absolute values may lead to misinterpretation of CBC data. Current Interpretive Data was last revised on 2017. Testing performed by: [address] [address] Eosinophil pct 0.6 % [facility] Comment: Interpretive Data Percent cell count reference ranges are not reported, since discordance with absolute values may lead to misinterpretation of CBC data. Current Interpretive Data was last revised on 2017. Testing performed by: [address] [address] Basophil pct 0.4 % [facility] Comment: Interpretive Data Percent cell count reference ranges are not reported, since discordance with absolute values may lead to misinterpretation of CBC data. Current Interpretive Data was last revised on 2017. Testing performed by: [address] [address] Blood 07/05/2024 11:4 0 AM OPERATIONS INTELLIGENCE SUPERINTENDENT 07/05/2024 11:43 AM OPERATIONS INTELLIGENCE SUPERINTENDENT Gilmer Menezes MD LAB BLOOD ORDERABLES Final Result Performing Organization Address [facility] de Phone Number [address] [place] [address] * Iron profile w/ IBC (07/05/2024 11:40 AM OPERATIONS INTELLIGENCE SUPERINTENDENT) Pathologist [facility] Iron 72 50 - 150 mcg/dL Comment:Testing performed by : [address] [address] TIBC 314 250 - 400 mcg/dL MEGAN Comment:Testing performed by : [address] [address] Transferrin saturation 23 20 - 50 % MEGAN Comment:Testing performed by : [address] [address] Blood 07/05/2024 11:4 0 AM OPERATIONS INTELLIGENCE SUPERINTENDENT 07/05/2024 1:51 PM OPERATIONS INTELLIGENCE SUPERINTENDENT Gilmer Menezes MD LAB BLOOD ORDERABLES Final Result Performing Organization Address [facility] de Phone Number [address] [address] * (ABNORMAL) CBC with auto differential (07/05/2024 11:40 AM OPERATIONS INTELLIGENCE SUPERINTENDENT) Pathologist [facility] WBC 5.2 3.8 - 9.9 K/cumm Comment:Testing performed by : [address] [address] Hgb 12.8(L) 13.0 - 17.5 g/dL MEGAN Comment:Testing performed by : [address] [address] Hct 37.0(L) 38.9 - 50.3 % MEGAN Comment:Testing performed by : [address] [address] Plt 143(L) 150 - 400 K/cumm MEGAN Comment:Testing performed by : [address] [address] MPV 9.6 9.1 - 12.3 fL MEGAN Comment:Testing performed by : [address] [address] RBC 4.05(L) 4.30 - 5.80 M/cumm MEGAN Comment:Testing performed by : [address], [address] MCV 91.4 81.3 - 96.4 fL MEGAN Comment:Testing performed by : [address] [address] MCH 31.6 27.1 - 33.3 pg MEGAN Comment:Testing performed by : [address] [address] MCHC 34.6 32.3 - 35.7 g/dL MEGAN Comment:Testing performed by : [address] [address] RDW CV 15.8(H) 11.1 - 14.9 % MEGAN Comment:Testing performed by : [address] [address] RDW SD 52.7(H) 35.7 - 48.1 fL MEGAN Comment:Testing performed by : [address], [address] NRBC abs 0.00 0.00 - 0.01 K/cumm MEGAN Comment:Testing performed by : [address], [address] Blood 07/05/2024 11:4 0 AM OPERATIONS INTELLIGENCE SUPERINTENDENT 07/05/2024 11:43 AM OPERATIONS INTELLIGENCE SUPERINTENDENT Gilmer Menezes MD LAB BLOOD ORDERABLES Final Result [facility] [address] [facility] Department [place] [address] * Manual Differential (07/05/2024 11:40 AM OPERATIONS INTELLIGENCE SUPERINTENDENT) Differential Auto Comment:Testing performed by : [address] [address] Neutrophil abs 3.6 1.5 - 6.5 K/cumm MEGAN Comment:Testing performed by : [address] [address] Imm gran abs 0.0 0.0 - 0.1 K/cumm MEGAN Comment:Testing performed by : [address] [address] Lymphocyte abs 0.9 0.8 - 3.3 K/cumm MEGAN Comment:Testing performed by : [address] [address] Monocyte abs 0.6 0.2 - 0.8 K/cumm MEGAN Comment:Testing performed by : [address] [address] Eosinophil abs 0.0 0.0 - 0.5 K/cumm MEGAN Comment:Testing performed by : [address] [address] Basophil abs 0.0 0.0 - 0.1 K/cumm MEGAN Comment:Testing performed by : [address] [address] Neutrophil pct 69.2 % MEGAN Comment: Interpretive Data Percent cell count reference ranges are not reported, since discordance with absolute values may lead to misinterpretation of CBC data. Current Interpretive Data was last revised on 2017. Testing performed by: [address] [address] Imm gran pct 0.2 % MEGAN Comment: Interpretive Data Percent cell count reference ranges are not reported, since discordance with absolute values may lead to misinterpretation of CBC data. Current Interpretive Data was last revised on 2017. Testing performed by: [address] [address] Lymphocyte pct 17.7 % MEGAN Comment: Interpretive Data Percent cell count reference ranges are not reported, since discordance with absolute values may lead to misinterpretation of CBC data. Current Interpretive Data was last revised on 2017. Testing performed by: [address] [address] Monocyte pct 11.9 % MEGAN Comment: Interpretive Data Percent cell count reference ranges are not reported, since discordance with absolute values may lead to misinterpretation of CBC data. Current Interpretive Data was last revised on 2017. Testing performed by: [address] [address] Eosinophil pct 0.6 % MEGAN Comment: Interpretive Data Percent cell count reference ranges are not reported, since discordance with absolute values may lead to misinterpretation of CBC data. Current Interpretive Data was last revised on 2017. Testing performed by: [address] [address] Basophil pct 0.4 % MEGAN Comment: Interpretive Data Percent cell count reference ranges are not reported, since discordance with absolute values may lead to misinterpretation of CBC data. Current Interpretive Data was last revised on 2017. Testing performed by: [address] [address] RBC morphology Consistent with RBC Indicies MEGAN Comment:Testing performed by : [address] [address] Platelet estimate Adequate MEGAN Comment:Testing performed by : [address] [address] Blood 07/05/2024 11:4 0 AM OPERATIONS INTELLIGENCE SUPERINTENDENT 07/05/2024 11:43 AM OPERATIONS INTELLIGENCE SUPERINTENDENT Gilmer Menezes MD LAB BLOOD ORDERABLES Final Result MEGAN RIZO [address] [facility] Department [place] [address] * Ferritin (07/05/2024 11:40 AM OPERATIONS INTELLIGENCE SUPERINTENDENT) [facility] Signature Ferritin 182 30 - 400 ng/mL Comment:Testing performed by : [address] [address] Blood 07/05/2024 11:4 0 AM OPERATIONS INTELLIGENCE SUPERINTENDENT 07/05/2024 1:51 PM OPERATIONS INTELLIGENCE SUPERINTENDENT Gilmer Menezes MD LAB BLOOD ORDERABLES Final Result Performing Organization Address [facility] de Phone Number [address] [address] * CEA (07/05/2024 11:40 AM OPERATIONS INTELLIGENCE SUPERINTENDENT) [facility] CEA 2.4 <=5.0 ng/mL Comment: Interpretive Data: Reference Range: Non-Smokers: 0.0 5.0 ng/mL Smokers: 0.0 6.5 ng/mL The Alex CEA assay procedure was used. Results from different manufacturers or methods may not be comparable. Serial testing should be performed using the same method. Current interpretive data was last revised 2022. Testing performed by: [address] [address] Blood 07/05/2024 11:4 0 AM OPERATIONS INTELLIGENCE SUPERINTENDENT 07/05/2024 1:51 PM OPERATIONS INTELLIGENCE SUPERINTENDENT Gilmer Menezes MD LAB BLOOD ORDERABLES Final Result Performing Organization Address [facility] de Phone Number [address] [address] * (ABNORMAL) Comprehensive metabolic panel (07/05/2024 11:40 AM OPERATIONS INTELLIGENCE SUPERINTENDENT) [facility] Sodium 134(L) 135 - 145 mmol/L Comment:Testing performed by : [address] [address] Potassium, pl 3.7 3.3 - 4.9 mmol/L MEGAN Comment:Testing performed by : [address] [address] Chloride 95(L) 97 - 110 mmol/L MEGAN RIZO Comment:Testing performed by : [address] [address] CO2 27 22 - 32 mmol/L MEGAN Comment:Testing performed by : [address] [address] Anion gap 12 2 - 15 mmol/L MEGAN Comment:Testing performed by : [address], [place]., [address] BUN 21 6 - 25 mg/dL MEGAN Comment:Testing performed by : [address], [place]., [address] Creatinine 1.20 0.80 - 1.30 mg/dL MEGAN Comment:Testing performed by : [address], [place]., [address] Glucose 138 70 - 199 mg/dL MEGAN Comment: Interpretive Data Fasting glucose >/= 126 mg/dl is diagnostic for diabetes. Fasting is defined as no caloric intake for at least 8 hours. Fasting glucose between 100 mg/dl to 125 mg/dl is diagnostic of prediabetes. In a patient with classic symptoms of hyperglycemia or hyperglycemic crisis, a random glucose >/= 200 mg/dl is diagnostic for diabetes. In the absence of unequivocal hyperglycemia, results should be confirmed by repeat testing. The classification and Diagnosis of Diabetes Diabetes Care 202; 46: S19-S40. Current interpretive data was last revised 2022. Testing performed by: [address] [address] Calcium 9.8 8.5 - 10.3 mg/dL MEGAN Comment:Testing performed by : [address] [address] Bilirubin, total 0.7 0.1 - 1.2 mg/dL MEGAN Comment:Testing performed by : [address] [address] Protein, pl 6.1(L) 6.5 - 8.5 g/dL MEGAN Comment:Testing performed by : [address] [address] Albumin 4.1 3.5 - 5.0 g/dL MEGAN Comment:Testing performed by : [address] [address] Alk phos 86 40 - 130 Units/L MEGAN RIZO Comment:Testing performed by : [facility], [address] [place] [address]., [address] ALT 16 7 - 55 Units/L MEGAN RIZO Comment:Testing performed by : [facility], [address] [place] [address]., [address] AST 15 10 - 50 Units/L MEGAN RIZO Comment:Testing performed by : [address] [address] Blood 07/05/2024 11:4 0 AM OPERATIONS INTELLIGENCE SUPERINTENDENT 07/05/2024 11:43 AM OPERATIONS INTELLIGENCE SUPERINTENDENT Gilmer Menezes MD LAB BLOOD ORDERABLES Final Result MEGAN RIZO [address] [facility] Department [place] [address] * CT Chest Abdomen Pelvis W Contrast (06/28/2024 11:51 AM OPERATIONS INTELLIGENCE SUPERINTENDENT) Anatomical Region Laterality Modality Body N/A Computed Tomogra phy 07/01/2024 7:38 AM OPERATIONS INTELLIGENCE SUPERINTENDENT Narrative 07/01/2024 7:48 AM OPERATIONS INTELLIGENCE SUPERINTENDENT EXAM DESCRIPTION: CT CHEST ABDOMEN PELVIS W CONTRAST REASON FOR STUDY: Colon cancer 6 month colon cancer f/u. No complaints. Hx of heart surgery, colon surgery, prostatectomy. TECHNIQUE: CT scan of the chest, abdomen, and pelvis performed with intravenous and without oral contrast using helical scanning technique with dynamic intravenous contrast injection. Reconstructed coronal and sagittal MPR images reviewed. All images stored on PACS. Automated exposure control was used as a dose optimization technique for this examination. CONTRAST TYPE/DOSE: 100mL of IOVERSOL 350 MG IODINE/ML INTRAVENOUS SYRINGE injected via intravenous COMPARISON: 12/15/2023. FINDINGS: CHEST LUNGS: Central airways are patent. There is a 0.2 cm right upper lobe nodule (series 2, image 26) unchanged. Small area of thickening along the medial aspect left major fissure unchanged. No new pulmonary nodules or masses. There is a calcified granuloma left lower lobe. PLEURA: No pleural effusion or pneumothorax. MEDIASTINUM/LISA: Postsurgical changes from median sternotomy/CABG. No pathologic thoracic lymphadenopathy. The thyroid gland is slightly heterogeneous. HEART: Heart size is normal. There is no pericardial effusion. VASCULATURE CHEST: No filling defect within the pulmonary arterial system. AXILLA: No axillary lymphadenopathy. CHEST WALL: No chest wall mass or subcutaneous emphysema. Gynecomastia is again noted. HARDWARE/LINES/TUBES: There is a right chest port with the tip SVC atrial junction. MUSCULOSKELETAL CHEST: Previous right anterior 4th through 10th rib fractures. ABDOMEN/PELVIS LIVER: Liver size and contour normal. No focal hepatic lesion. GALLBLADDER: No gallstones or overt inflammatory change. BILE DUCTS: No biliary ductal dilation. SPLEEN: Spleen size normal. Granulomatous calcifications are present in the spleen. PANCREAS: No pancreatic mass or inflammatory change. ADRENALS: Normal KIDNEYS/URINARY TRACT: No right renal calculus. No left renal calculus. There is cortical thinning. No hydronephrosis or hydroureter. The urinary bladder is unremarkable. Urinary bladder is unremarkable. GI: Postsurgical changes are seen from partial colectomy with anastomosis. There is no evidence of bowel obstruction. There are postsurgical changes seen along the anterior wall the distal stomach. Small sliding hiatal hernia. No pneumatosis. PERITONEUM: No ascites or free air. No mesenteric mass or lymphadenopathy. RETROPERITONEUM: No retroperitoneal mass or lymphadenopathy. REPRODUCTIVE: Status post prostatectomy. No pelvic mass. VASCULATURE ABDOMEN: Abdominal aorta shows moderate atheromatous plaque. No abdominal aortic aneurysm. MUSCULOSKELETAL ABDOMEN PELVIS: Bone windows demonstrate no acute or aggressive osseous abnormality. There is moderate arthritic change left hip. Previous fluid collection deep to the right rectus abdominus musculature has nearly completely resolved. OTHER: No significant abnormality. IMPRESSION: No evidence of metastatic disease within the chest, abdomen, or pelvis. Postsurgical changes from partial colectomy with anastomosis. Status post prostatectomy. THIS IS AN ELECTRONICALLY VERIFIED FINAL REPORT 07/01/2024 7:48 AM - Electronically signed by Yan Hairston M.D. CH: DESI Report ID: [id number] Reading Location: [place] [address] Procedure Note Yan Hairston Jr., MD - 07/01/2024 EXAM DESCRIPTION: CT CHEST ABDOMEN PELVIS W CONTRAST REASON FOR STUDY: Colon cancer 6 month colon cancer f/u. No complaints. Hx of heart surgery, colonsurgery, prostatectomy. TECHNIQUE: CT scan of the chest, abdomen, and pelvis performed with intravenous and without oral contrast using helical scanning techniquewith dynamic intravenous contrast injection. Reconstructed coronal and sagittalMPR images reviewed. All images stored on PACS. Automated exposure control was used as a dose optimization technique for this examination. CONTRAST TYPE/DOSE: 100mL of IOVERSOL 350 MG IODINE/ML INTRAVENOUS SYRINGE injected via intravenous COMPARISON: 12/15/2023. FINDINGS: CHEST LUNGS: Central airways are patent. There is a 0.2 cm right upper lobe nodule (series 2, image 26) unchanged. Small area of thickening along the medial aspect left major fissure unchanged. No new pulmonary nodules or masses. There is a calcified granuloma left lower lobe. PLEURA: No pleural effusion or pneumothorax. MEDIASTINUM/LISA: Postsurgical changes from median sternotomy/CABG. No pathologic thoracic lymphadenopathy. The thyroid gland is slightly heterogeneous. HEART: Heart size is normal. There is no pericardial effusion. VASCULATURE CHEST: No filling defect within the pulmonary arterialsystem. AXILLA: No axillary lymphadenopathy. CHEST WALL: No chest wall mass or subcutaneous emphysema. Gynecomastiais again noted. HARDWARE/LINES/TUBES: There is a right chest port with the tip SVCatrial junction. MUSCULOSKELETAL CHEST: Previous right anterior 4th through 10th rib fractures. ABDOMEN/PELVIS LIVER: Liver size and contour normal. No focal hepatic lesion. GALLBLADDER: No gallstones or overt inflammatory change. BILE DUCTS: No biliary ductal dilation. SPLEEN: Spleen size normal. Granulomatous calcifications are present inthe spleen. PANCREAS: No pancreatic mass or inflammatory change. ADRENALS: Normal KIDNEYS/URINARY TRACT: No right renal calculus. No left renal calculus. There is cortical thinning. No hydronephrosis or hydroureter. Theurinary bladder is unremarkable. Urinary bladder is unremarkable. GI: Postsurgical changes are seen from partial colectomy withanastomosis. There is no evidence of bowel obstruction. There are postsurgical changes seen along the anterior wall the distal stomach. Small sliding hiatalhernia. No pneumatosis. PERITONEUM: No ascites or free air. No mesenteric mass orlymphadenopathy. RETROPERITONEUM: No retroperitoneal mass or lymphadenopathy. REPRODUCTIVE: Status post prostatectomy. No pelvic mass. VASCULATURE ABDOMEN: Abdominal aorta shows moderate atheromatous plaque.No abdominal aortic aneurysm. MUSCULOSKELETAL ABDOMEN PELVIS: Bone windows demonstrate no acute or aggressive osseous abnormality. There is moderate arthritic change lefthip. Previous fluid collection deep to the right rectus abdominus musculaturehas nearly completely resolved. OTHER: No significant abnormality. IMPRESSION: No evidence of metastatic disease within the chest, abdomen, or pelvis. Postsurgical changes from partial colectomy with anastomosis. Status post prostatectomy. THIS IS AN ELECTRONICALLY VERIFIED FINAL REPORT 07/01/2024 7:48 AM - Electronically signed by Yan Hairston M.D. CH: DESI Report ID: [id number] Reading Location: [id number] Gilmer Menezes MD IMG CT PROCEDURES Fi nal Result * (ABNORMAL) eGFR (06/14/2024 11:15 AM OPERATIONS INTELLIGENCE SUPERINTENDENT) eGFR 52(L) >=60 mL/min/1. 73 m2 Comment: Interpretive Data Reference Interval Normal >/= 90 mL/min/1.73m2 Mildly decreased* 60 - 89 mL/min/1.73m2 Mildly to moderately decreased 45 - 59 mL/min/1.73m2 Moderately to severely decreased 30 - 44 mL/min/1.73m2 Severely decreased 15 - 29 mL/min/1.73m2 Kidney Failure < 15 mL/min/1.73m2 *Relative to young adult level Estimated glomerular filtration rate is determined by the 2020 CKD-EPI equation recommended by the National Kidney Foundation (A Unifying Approach to GFR Estimation: Recommendations of the NKF-ASK Task Force on Reassessing the Inclusion of Race in Diagnosing Kidney Disease, JASN 2020). The CKD-EPI equation should not be used for patients with unstable renal function and has not been validated in children and those over 70. Current interpretive data was last reviewed 2021. Testing performed by: [facility], [address] [place] [address], [place]., [address] Blood 06/14/2024 11:1 5 AM OPERATIONS INTELLIGENCE SUPERINTENDENT 06/14/2024 11:15 AM OPERATIONS INTELLIGENCE SUPERINTENDENT us Gilmer Menezes MD LAB BLOOD ORDERABLES Final Result MEGAN [address] [facility] Department [place] [address] * Differential, auto (06/14/2024 11:15 AM OPERATIONS INTELLIGENCE SUPERINTENDENT) Neutrophil abs 3.6 1.5 - 6.5 K/cumm Comment:Testing performed by : [address] [address] Imm gran abs 0.0 0.0 - 0.1 K/cumm MEGAN Comment:Testing performed by : [address] [address] Lymphocyte abs 1.0 0.8 - 3.3 K/cumm MEGAN Comment:Testing performed by : [address] [address] Monocyte abs 0.6 0.2 - 0.8 K/cumm MEGAN Comment:Testing performed by : [address] [address] Eosinophil abs 0.0 0.0 - 0.5 K/cumm MEGAN Comment:Testing performed by : [address] [address] Basophil abs 0.0 0.0 - 0.1 K/cumm MEGAN Comment:Testing performed by : [address] [address] Neutrophil pct 69.0 % MEGAN Comment: Interpretive Data Percent cell count reference ranges are not reported, since discordance with absolute values may lead to misinterpretation of CBC data. Current Interpretive Data was last revised on 2017. Testing performed by: [address] [address] Imm gran pct 0.4 % MEGAN Comment: Interpretive Data Percent cell count reference ranges are not reported, since discordance with absolute values may lead to misinterpretation of CBC data. Current Interpretive Data was last revised on 2017. Testing performed by: [address] [address] Lymphocyte pct 18.3 % MEGAN Comment: Interpretive Data Percent cell count reference ranges are not reported, since discordance with absolute values may lead to misinterpretation of CBC data. Current Interpretive Data was last revised on 2017. Testing performed by: [address] [address] Monocyte pct 11.3 % MEGAN Comment: Interpretive Data Percent cell count reference ranges are not reported, since discordance with absolute values may lead to misinterpretation of CBC data. Current Interpretive Data was last revised on 2017. Testing performed by: [address] [address] Eosinophil pct 0.6 % MEGAN Comment: Interpretive Data Percent cell count reference ranges are not reported, since discordance with absolute values may lead to misinterpretation of CBC data. Current Interpretive Data was last revised on 2017. Testing performed by: [address] [address] Basophil pct 0.4 % MEGAN Comment: Interpretive Data Percent cell count reference ranges are not reported, since discordance with absolute values may lead to misinterpretation of CBC data. Current Interpretive Data was last revised on 2017. Testing performed by: [address] [address] Blood 06/14/2024 11:1 5 AM OPERATIONS INTELLIGENCE SUPERINTENDENT 06/14/2024 11:15 AM OPERATIONS INTELLIGENCE SUPERINTENDENT Gilmer Menezes MD LAB BLOOD ORDERABLES Final Result MEGAN [address] [facility] Department of Laboratories [place], [place] [id number] * (ABNORMAL) CBC with auto differential (06/14/2024 11:15 AM OPERATIONS INTELLIGENCE SUPERINTENDENT) WBC 5.2 3.8 - 9.9 K/cumm Comment:Testing performed by : [address] [address] Hgb 12.6(L) 13.0 - 17.5 g/dL MEGAN RIZO Comment:Testing performed by : [address] [address] Hct 36.8(L) 38.9 - 50.3 % MEGAN Comment:Testing performed by : [address] [address] Plt 131(L) 150 - 400 K/cumm MEGAN Comment:Testing performed by : [address] [address] MPV 9.3 9.1 - 12.3 fL MEGAN Comment:Testing performed by : [address], [address] RBC 3.94(L) 4.30 - 5.80 M/cumm MEGAN Comment:Testing performed by : [address], [address] MCV 93.4 81.3 - 96.4 fL MEGAN Comment:Testing performed by : [address] [address] MCH 32.0 27.1 - 33.3 pg MEGAN Comment:Testing performed by : [address], [address] MCHC 34.2 32.3 - 35.7 g/dL MEGAN Comment:Testing performed by : [address], [address] RDW CV 15.7(H) 11.1 - 14.9 % MEGAN Comment:Testing performed by : [address], [address] RDW SD 52.7(H) 35.7 - 48.1 fL MEGAN Comment:Testing performed by : [address], [address] NRBC abs 0.00 0.00 - 0.01 K/cumm MEGAN Comment:Testing performed by : [address], [address] Blood 06/14/2024 11:1 5 AM OPERATIONS INTELLIGENCE SUPERINTENDENT 06/14/2024 11:15 AM OPERATIONS INTELLIGENCE SUPERINTENDENT us Gilmer Menezes MD LAB BLOOD ORDERABLES Final Result Performing Organization Address [facility] de Phone Number MEGAN [facility] [address] [place] [address] * CEA (06/14/2024 11:15 AM OPERATIONS INTELLIGENCE SUPERINTENDENT) [facility] CEA 2.6 <=5.0 ng/mL Comment: Interpretive Data: Reference Range: Non-Smokers: 0.0 5.0 ng/mL Smokers: 0.0 6.5 ng/mL The Alex CEA assay procedure was used. Results from different manufacturers or methods may not be comparable. Serial testing should be performed using the same method. Current interpretive data was last revised 2022. Testing performed by: [address] [address] Blood 06/14/2024 11:1 5 AM OPERATIONS INTELLIGENCE SUPERINTENDENT 06/14/2024 1:46 PM OPERATIONS INTELLIGENCE SUPERINTENDENT Gilmer Menezes MD LAB BLOOD ORDERABLES Final Result Performing Organization Address [facility] de Phone Number [id number] [place] [address] * (ABNORMAL) Comprehensive metabolic panel (06/14/2024 11:15 AM OPERATIONS INTELLIGENCE SUPERINTENDENT) [facility] Sodium 135 135 - 145 mmol/L Comment:Testing performed by : [address] [address] Potassium, pl 3.8 3.3 - 4.9 mmol/L MEGAN Comment:Testing performed by : [address] [address] Chloride 96(L) 97 - 110 mmol/L MEGAN Comment:Testing performed by : [address] [address] CO2 27 22 - 32 mmol/L MEGAN Comment:Testing performed by : [address] [address] Anion gap 12 2 - 15 mmol/L MEGAN Comment:Testing performed by : [address] [address] BUN 22 6 - 25 mg/dL MEGAN Comment:Testing performed by : [address] [address] Creatinine 1.40(H) 0.80 - 1.30 mg/dL MEGAN Comment:Testing performed by : [address] [address] Glucose 170 70 - 199 mg/dL MEGAN Comment: Interpretive Data Fasting glucose >/= 126 mg/dl is diagnostic for diabetes. Fasting is defined as no caloric intake for at least 8 hours. Fasting glucose between 100 mg/dl to 125 mg/dl is diagnostic of prediabetes. In a patient with classic symptoms of hyperglycemia or hyperglycemic crisis, a random glucose >/= 200 mg/dl is diagnostic for diabetes. In the absence of unequivocal hyperglycemia, results should be confirmed by repeat testing. The classification and Diagnosis of Diabetes Diabetes Care 2021; 46: S19-S40. Current interpretive data was last revised 2022. Testing performed by: [address] [address] Calcium 9.7 8.5 - 10.3 mg/dL MEGAN Comment:Testing performed by : [address] [address] Bilirubin, total 0.5 0.1 - 1.2 mg/dL MEGAN Comment:Testing performed by : [address] [address] Protein, pl 6.1(L) 6.5 - 8.5 g/dL MEGAN Comment:Testing performed by : [address] [address] Albumin 4.0 3.5 - 5.0 g/dL MEGAN Comment:Testing performed by : [address] [address] Alk phos 89 40 - 130 Units/L MEGAN Comment:Testing performed by : [address] [address] ALT 13 7 - 55 Units/L MGEAN Comment:Testing performed by : [address] [address] AST 14 10 - 50 Units/L MEGAN Comment:Testing performed by : [address] [address] Blood 06/14/2024 11:1 5 AM OPERATIONS INTELLIGENCE SUPERINTENDENT 06/14/2024 11:15 AM OPERATIONS INTELLIGENCE SUPERINTENDENT Gilmer Menezes MD LAB BLOOD ORDERABLES Final Result MEGAN [facility] [address] [facility] [place] [address] * eGFR (05/31/2024 12:15 PM OPERATIONS INTELLIGENCE SUPERINTENDENT) eGFR 63 >=60 mL/min/1. 73 m2 Comment: Interpretive Data Reference Interval Normal >/= 90 mL/min/1.73m2 Mildly decreased* 60 - 89 mL/min/1.73m2 Mildly to moderately decreased 45 - 59 mL/min/1.73m2 Moderately to severely decreased 30 - 44 mL/min/1.73m2 Severely decreased 15 - 29 mL/min/1.73m2 Kidney Failure < 15 mL/min/1.73m2 *Relative to young adult level Estimated glomerular filtration rate is determined by the 2020 CKD-EPI equation recommended by the National Kidney Foundation (A Unifying Approach to GFR Estimation: Recommendations of the NKF-ASK Task Force on Reassessing the Inclusion of Race in Diagnosing Kidney Disease, JASN 2020). The CKD-EPI equation should not be used for patients with unstable renal function and has not been validated in children and those over 70. Current interpretive data was last reviewed 2021. Testing performed by: [address] [address] Blood 05/31/2024 12:1 5 PM OPERATIONS INTELLIGENCE SUPERINTENDENT 05/31/2024 12:17 PM OPERATIONS INTELLIGENCE SUPERINTENDENT us Chandler Miller NP LAB BLOOD ORDERABLES F inal Result [place] [address] [facility] [place] [address] * (ABNORMAL) Differential, auto (05/31/2024 12:15 PM OPERATIONS INTELLIGENCE SUPERINTENDENT) Neutrophil abs 4.5 1.5 - 6.5 K/cumm Comment:Testing performed by : [address] [address] Imm gran abs 0.0 0.0 - 0.1 K/cumm MEGAN Comment:Testing performed by : [address] [address] Lymphocyte abs 0.7(L) 0.8 - 3.3 K/cumm MEGAN Comment:Testing performed by : [address] [address] Monocyte abs 0.4 0.2 - 0.8 K/cumm [facility] Comment:Testing performed by : [address] [address] Eosinophil abs 0.1 0.0 - 0.5 K/cumm [facility] Comment:Testing performed by : [address] [address] Basophil abs 0.0 0.0 - 0.1 K/cumm [facility] Comment:Testing performed by : [address] [address] Neutrophil pct 78.6 % [facility] Comment: Interpretive Data Percent cell count reference ranges are not reported, since discordance with absolute values may lead to misinterpretation of CBC data. Current Interpretive Data was last revised on 2017. Testing performed by: [address] [address] Imm gran pct 0.3 % [facility] Comment: Interpretive Data Percent cell count reference ranges are not reported, since discordance with absolute values may lead to misinterpretation of CBC data. Current Interpretive Data was last revised on 2017. Testing performed by: [address] [address] Lymphocyte pct 12.2 % [facility] Comment: Interpretive Data Percent cell count reference ranges are not reported, since discordance with absolute values may lead to misinterpretation of CBC data. Current Interpretive Data was last revised on 2017. Testing performed by: [address] [address] Monocyte pct 7.6 % MEGAN Comment: Interpretive Data Percent cell count reference ranges are not reported, since discordance with absolute values may lead to misinterpretation of CBC data. Current Interpretive Data was last revised on 2017. Testing performed by: [address] [address] Eosinophil pct 1.0 % MEGAN Comment: Interpretive Data Percent cell count reference ranges are not reported, since discordance with absolute values may lead to misinterpretation of CBC data. Current Interpretive Data was last revised on 2017. Testing performed by: [address] [address] [address] Basophil pct 0.3 % MEGAN Comment: Interpretive Data Percent cell count reference ranges are not reported, since discordance with absolute values may lead to misinterpretation of CBC data. Current Interpretive Data was last revised on 2017. Testing performed by: [address] [address] Blood 05/31/2024 12:1 5 PM OPERATIONS INTELLIGENCE SUPERINTENDENT 05/31/2024 12:17 PM OPERATIONS INTELLIGENCE SUPERINTENDENT Chandler Miller REPORTING LEAD LAB BLOOD ORDERABLES F inal Result [facility] [address] [facility] Department of Laboratories [place], [place] [id number] * (ABNORMAL) CBC with auto differential (05/31/2024 12:15 PM OPERATIONS INTELLIGENCE SUPERINTENDENT) [facility] WBC 5.8 3.8 - 9.9 K/cumm Comment:Testing performed by : [address] [address] Hgb 12.5(L) 13.0 - 17.5 g/dL MEGAN Comment:Testing performed by : [address] [address] Hct 36.2(L) 38.9 - 50.3 % MEGAN Comment:Testing performed by : [address] [address] Plt 160 150 - 400 K/cumm MEGAN RIZO Comment:Testing performed by : [address] [address] MPV 8.9(L) 9.1 - 12.3 fL MEGAN RIZO Comment:Testing performed by : [address] [address] RBC 3.86(L) 4.30 - 5.80 M/cumm MEGAN RIZO Comment:Testing performed by : [address] [address] MCV 93.8 81.3 - 96.4 fL MEGAN Comment:Testing performed by : [address] [address] MCH 32.4 27.1 - 33.3 pg MGEAN RIZO Comment:Testing performed by : [address], [address] MCHC 34.5 32.3 - 35.7 g/dL MEGAN Comment:Testing performed by : [address] [address] RDW CV 15.2(H) 11.1 - 14.9 % MEGAN Comment:Testing performed by : [address] [address] RDW SD 51.4(H) 35.7 - 48.1 fL MEGAN Comment:Testing performed by : [address], [address] NRBC abs 0.00 0.00 - 0.01 K/cumm MEGAN Comment:Testing performed by : [address], [address] Blood 05/31/2024 12:1 5 PM OPERATIONS INTELLIGENCE SUPERINTENDENT 05/31/2024 12:17 PM OPERATIONS INTELLIGENCE SUPERINTENDENT us Chandler Miller NP LAB BLOOD ORDERABLES F inal Result MEGAN [address] [facility] Department [place] [address] * CEA (05/31/2024 12:15 PM OPERATIONS INTELLIGENCE SUPERINTENDENT) CEA 2.0 <=5.0 ng/mL Comment: Interpretive Data: Reference Range: Non-Smokers: 0.0 5.0 ng/mL Smokers: 0.0 6.5 ng/mL The Alex CEA assay procedure was used. Results from different manufacturers or methods may not be comparable. Serial testing should be performed using the same method. Current interpretive data was last revised 2022. Testing performed by: [address] [address] Blood 05/31/2024 12:1 5 PM OPERATIONS INTELLIGENCE SUPERINTENDENT 05/31/2024 4:21 PM OPERATIONS INTELLIGENCE SUPERINTENDENT Chandler Miller NP LAB BLOOD ORDERABLES F inal Result MEGAN [facility] [address] [facility] Department [place] [address] * (ABNORMAL) Comprehensive metabolic panel (05/31/2024 12:15 PM OPERATIONS INTELLIGENCE SUPERINTENDENT) Sodium 133(L) 135 - 145 mmol/L Comment:Testing performed by : [address] [address] Potassium, pl 3.5 3.3 - 4.9 mmol/L MEGAN Comment:Testing performed by : [address] [address] Chloride 96(L) 97 - 110 mmol/L MEGAN Comment:Testing performed by : [address] [address] CO2 25 22 - 32 mmol/L MEGAN Comment:Testing performed by : [address] [address] Anion gap 12 2 - 15 mmol/L MEGAN Comment:Testing performed by : [address] [address] BUN 18 6 - 25 mg/dL MEGAN Comment:Testing performed by : [address] [address] Creatinine 1.20 0.80 - 1.30 mg/dL MEGAN Comment:Testing performed by : [address] [address] Glucose 195 70 - 199 mg/dL MEGAN Comment: Interpretive Data Fasting glucose >/= 126 mg/dl is diagnostic for diabetes. Fasting is defined as no caloric intake for at least 8 hours. Fasting glucose between 100 mg/dl to 125 mg/dl is diagnostic of prediabetes. In a patient with classic symptoms of hyperglycemia or hyperglycemic crisis, a random glucose >/= 200 mg/dl is diagnostic for diabetes. In the absence of unequivocal hyperglycemia, results should be confirmed by repeat testing. The classification and Diagnosis of Diabetes Diabetes Care 202; 46: S19-S40. Current interpretive data was last revised 2022. Testing performed by: [address] [address] Calcium 9.3 8.5 - 10.3 mg/dL MEGAN Comment:Testing performed by : [address] [address] Bilirubin, total 0.5 0.1 - 1.2 mg/dL MEGAN Comment:Testing performed by : [address] [address] Protein, pl 6.0(L) 6.5 - 8.5 g/dL MEGAN Comment:Testing performed by : [address] [address] Albumin 4.0 3.5 - 5.0 g/dL [facility] Comment:Testing performed by : [address] [address] Alk phos 119 40 - 130 Units/L MEGAN Comment:Testing performed by : [address] [address] ALT 12 7 - 55 Units/L MEGAN Comment:Testing performed by : [address] [address] AST 13 10 - 50 Units/L MEGAN Comment:Testing performed by : [address] [address] Blood 05/31/2024 12:1 5 PM OPERATIONS INTELLIGENCE SUPERINTENDENT 05/31/2024 12:17 PM OPERATIONS INTELLIGENCE SUPERINTENDENT us Chandler Miller NP LAB BLOOD ORDERABLES F inal Result Performing Organization Address City/[facility]/ZIP Co de Phone Number MEGAN [address] [place] [address] * eGFR (05/17/2024 11:47 AM OPERATIONS INTELLIGENCE SUPERINTENDENT) eGFR 70 >=60 mL/min/1. 73 m2 Comment: Interpretive Data Reference Interval Normal >/= 90 mL/min/1.73m2 Mildly decreased* 60 - 89 mL/min/1.73m2 Mildly to moderately decreased 45 - 59 mL/min/1.73m2 Moderately to severely decreased 30 - 44 mL/min/1.73m2 Severely decreased 15 - 29 mL/min/1.73m2 Kidney Failure < 15 mL/min/1.73m2 *Relative to young adult level Estimated glomerular filtration rate is determined by the 2020 CKD-EPI equation recommended by the National Kidney Foundation (A Unifying Approach to GFR Estimation: Recommendations of the NKF-ASK Task Force on Reassessing the Inclusion of Race in Diagnosing Kidney Disease, JASN 2020). The CKD-EPI equation should not be used for patients with unstable renal function and has not been validated in children and those over 70. Current interpretive data was last reviewed 2021. Testing performed by: [facility], [address] [place] [address]., [address] Blood 05/17/2024 11:4 7 AM OPERATIONS INTELLIGENCE SUPERINTENDENT 05/17/2024 11:49 AM OPERATIONS INTELLIGENCE SUPERINTENDENT us Gilmer Menezes MD LAB BLOOD ORDERABLES Final Result Performing Organization Address City/[facility]/ZIP Co de Phone Number MEGAN [address] [place] [address] * Differential, auto (05/17/2024 11:47 AM OPERATIONS INTELLIGENCE SUPERINTENDENT) Neutrophil abs 5.8 1.5 - 6.5 K/cumm Comment:Testing performed by : [address] [address] Imm gran abs 0.1 0.0 - 0.1 K/cumm CERNER Comment:Testing performed by : [address] [address] Lymphocyte abs 0.8 0.8 - 3.3 K/cumm CERNER Comment:Testing performed by : [address] [address] Monocyte abs 0.6 0.2 - 0.8 K/cumm [facility] Comment:Testing performed by : [address], [place]., [address] Eosinophil abs 0.0 0.0 - 0.5 K/cumm [facility] Comment:Testing performed by : [address] [address] Basophil abs 0.0 0.0 - 0.1 K/cumm [facility] Comment:Testing performed by : [address] [address] Neutrophil pct 79.6 % [facility] Comment: Interpretive Data Percent cell count reference ranges are not reported, since discordance with absolute values may lead to misinterpretation of CBC data. Current Interpretive Data was last revised on 2017. Testing performed by: [address] [address] Imm gran pct 0.7 % [facility] Comment: Interpretive Data Percent cell count reference ranges are not reported, since discordance with absolute values may lead to misinterpretation of CBC data. Current Interpretive Data was last revised on 2017. Testing performed by: [address] [address] Lymphocyte pct 11.0 % CERNER Comment: Interpretive Data Percent cell count reference ranges are not reported, since discordance with absolute values may lead to misinterpretation of CBC data. Current Interpretive Data was last revised on 2017. Testing performed by: [address] [address] Monocyte pct 8.1 % CERNER Comment: Interpretive Data Percent cell count reference ranges are not reported, since discordance with absolute values may lead to misinterpretation of CBC data. Current Interpretive Data was last revised on 2017. Testing performed by: [address] [address] Eosinophil pct 0.3 % MEGAN Comment: Interpretive Data Percent cell count reference ranges are not reported, since discordance with absolute values may lead to misinterpretation of CBC data. Current Interpretive Data was last revised on 2017. Testing performed by: [address] [address] Basophil pct 0.3 % MEGAN Comment: Interpretive Data Percent cell count reference ranges are not reported, since discordance with absolute values may lead to misinterpretation of CBC data. Current Interpretive Data was last revised on 2017. Testing performed by: [address] [address] Blood 05/17/2024 11:4 7 AM OPERATIONS INTELLIGENCE SUPERINTENDENT 05/17/2024 11:49 AM OPERATIONS INTELLIGENCE SUPERINTENDENT Gilmer Menezes MD LAB BLOOD ORDERABLES Final Result [facility] [address] [facility] Department of Laboratories [place], [place] [id number] * (ABNORMAL) CBC with auto differential (05/17/2024 11:47 AM OPERATIONS INTELLIGENCE SUPERINTENDENT) Pathologist [facility] WBC 7.3 3.8 - 9.9 K/cumm Comment:Testing performed by : [address] [address] Hgb 12.4(L) 13.0 - 17.5 g/dL MEGAN Comment:Testing performed by : [address] [address] Hct 36.2(L) 38.9 - 50.3 % MEGAN Comment:Testing performed by : [address] [address] Plt 144(L) 150 - 400 K/cumm MEGAN Comment:Testing performed by : [address] [address] MPV 9.1 9.1 - 12.3 fL MEGAN RIZO Comment:Testing performed by : [address], [address] RBC 3.78(L) 4.30 - 5.80 M/cumm MEGAN RIZO Comment:Testing performed by : [address] [address] MCV 95.8 81.3 - 96.4 fL MEGAN RIZO Comment:Testing performed by : [address] [address] MCH 32.8 27.1 - 33.3 pg MEGAN RIZO Comment:Testing performed by : [address], [address] MCHC 34.3 32.3 - 35.7 g/dL MEGAN RIZO Comment:Testing performed by : [address] [address] RDW CV 15.6(H) 11.1 - 14.9 % MEGAN Comment:Testing performed by : [address], [address] RDW SD 54.8(H) 35.7 - 48.1 fL MEGAN Comment:Testing performed by : [address] [address] NRBC abs 0.00 0.00 - 0.01 K/cumm MEGAN RIZO Comment:Testing performed by : [address], [address] Blood 05/17/2024 11:4 7 AM OPERATIONS INTELLIGENCE SUPERINTENDENT 05/17/2024 11:49 AM OPERATIONS INTELLIGENCE SUPERINTENDENT us Gilmer Menezes MD LAB BLOOD ORDERABLES Final Result MEGAN [address] [facility] Department [place] [address] * CEA (05/17/2024 11:47 AM OPERATIONS INTELLIGENCE SUPERINTENDENT) CEA 2.1 <=5.0 ng/mL Comment: Interpretive Data: Reference Range: Non-Smokers: 0.0 5.0 ng/mL Smokers: 0.0 6.5 ng/mL The Alex CEA assay procedure was used. Results from different manufacturers or methods may not be comparable. Serial testing should be performed using the same method. Current interpretive data was last revised 2022. Testing performed by: [address] [address] Blood 05/17/2024 11:4 7 AM OPERATIONS INTELLIGENCE SUPERINTENDENT 05/17/2024 1:42 PM OPERATIONS INTELLIGENCE SUPERINTENDENT us Gilmer Menezes MD LAB BLOOD ORDERABLES Final Result [facility] [address] [facility] Department [place] [address] * (ABNORMAL) Comprehensive metabolic panel (05/17/2024 11:47 AM OPERATIONS INTELLIGENCE SUPERINTENDENT) Sodium 133(L) 135 - 145 mmol/L Comment:Testing performed by : [address] [address] Potassium, pl 3.9 3.3 - 4.9 mmol/L MEGAN Comment:Testing performed by : [address] [address] Chloride 96(L) 97 - 110 mmol/L MEGAN Comment:Testing performed by : [address] [address] CO2 23 22 - 32 mmol/L MEGAN Comment:Testing performed by : [address] [address] Anion gap 14 2 - 15 mmol/L MEGAN Comment:Testing performed by : [address] [address] BUN 23 6 - 25 mg/dL MEGAN Comment:Testing performed by : [address] [address] Creatinine 1.10 0.80 - 1.30 mg/dL MEGAN Comment:Testing performed by : [address] [address] Glucose 207(H) 70 - 199 mg/dL MEGAN Comment: Interpretive Data Fasting glucose >/= 126 mg/dl is diagnostic for diabetes. Fasting is defined as no caloric intake for at least 8 hours. Fasting glucose between 100 mg/dl to 125 mg/dl is diagnostic of prediabetes. In a patient with classic symptoms of hyperglycemia or hyperglycemic crisis, a random glucose >/= 200 mg/dl is diagnostic for diabetes. In the absence of unequivocal hyperglycemia, results should be confirmed by repeat testing. The classification and Diagnosis of Diabetes Diabetes Care 2021; 46: S19-S40. Current interpretive data was last revised 2022. Testing performed by: [address] [address] Calcium 9.2 8.5 - 10.3 mg/dL MEGAN Comment:Testing performed by : [address] [address] Bilirubin, total 0.7 0.1 - 1.2 mg/dL MEGAN Comment:Testing performed by : [address] [address] Protein, pl 6.3(L) 6.5 - 8.5 g/dL MEGAN Comment:Testing performed by : [address] [address] Albumin 3.9 3.5 - 5.0 g/dL MEGAN Comment:Testing performed by : [address] [address] Alk phos 150(H) 40 - 130 Units/L [facility] Comment:Testing performed by : [address] [address] ALT 18 7 - 55 Units/L MEGAN Comment:Testing performed by : [address] [address] AST 18 10 - 50 Units/L MEGAN Comment:Testing performed by : [address] [address] Blood 05/17/2024 11:4 7 AM OPERATIONS INTELLIGENCE SUPERINTENDENT 05/17/2024 11:49 AM OPERATIONS INTELLIGENCE SUPERINTENDENT Gilmer Menezes MD LAB BLOOD ORDERABLES Final Result [facility] [address] [facility] Department [place] [address] from Last 3 Months Insurance [facility] MEDICARE ADVANTAGE [facility] MEDICARE [facility] Address: [facility] [id number] [place] [phone] AET MEDICARE Advance Directives For more information, please contact: [phone] * Full Code (Latest Code Status on File) Date Activated Date Inactivated Comments 12/28/2023 7:16 AM 12/29/2023 5:30 AM * Full Code Date Activated Date Inactivated Comments 11/02/2023 4:41 PM 11/05/2023 3:41 PM * Full Code Date Activated Date Inactivated Comments 10/16/2020 1:38 PM 10/18/2020 8:32 PM Care Teams Sparmaker Relationship Specialty Start Date End Date Kaiden Marshall DO [address] [place] [address] PCP - General Family Medicine 10/10/21 Timbo Cardoso MD Consulting Physician Neurology 10/18/20 Mike Ledezma MD PhD [address] [place] [address] Radiation Oncologist Radiation Oncology 02/21/21 Edelmira Alexandre NP [address] [place] [address] Registered Nurse Family Medicine 09/08/23 Jonelle Deluna MD [address] [facility] [phone] [place] [address] Surgeon Colon and Rectal Surgery 09/29/23 [place] [address] [place] [address] [place] [address] Medical Oncologist/Instrument Maintenance Supervisor Medical Oncology 11/24/23
--- OUTSIDE RECORDS SUMMARY | 2024-08-09 10:07 | XMS_ITS | Clinical Summary ---
Author Organization [facility] Outpatient Health Address [address] [place] [address] Care Team Providers Care Direct Support Professional Home Health Name Role Phone Timbo Cardoso MD Unavailable Mike Ledezma MD PhD Unavailable [phone] Kaiden Marshall DO Primary Care Provider Edelmira Alexandre NP Unavailable [phone] Jonelle Deluna MD Unavailable [phone] Gilmer Menezes MD Unavailable [phone] Allergies No known active allergies Medications amLODIPine [...] pain 11/02/2023 Coronary artery disease invo lving [place] coronary artery of [place] heart 05/02/2023 Iron deficiency anemia 05/12/2022 AV [...] (08/15/2020): Added automatically from request for surgery [id number] Assessment & Plan (02/12/2022 11:29 AM CDT): [...] (07/12/2020): Added automatically from request for surgery [id number] Rising PSA following treatme nt for malignant neoplasm of prostate 04/20/2020 Overview (04/20/2020): Added automatically from request for surgery [id number] Elevated PSA 04/20/2020 Overview (03/07/2024): Added automatically from request for surgery [id number] Edema of left lower extremity 02/28/2020 History [...] Date Malignant neoplasm of colon 10/06/2023 11/24/2023 Encounters Date Type Department Care Team Description 08/01/2024 Telephone [facility] Radiation Oncology [address] [place] [phone] Henrry Darby RN 07/27/2024 Orders Only [facility] Radiation Oncology [address] [place] [phone] Bryanna Hall NP 07/08/2024 Telephone [facility] Radiation Oncology [address] [place] [phone] Emily Lind MLT 07/07/2024 Orders Only [facility] Oncology [address] [facility] [address] [place] [address] Moraima Jacob RN Malignant neoplasm of colon, unspecified part of colon (HCC) (Primary Dx) 07/05/2024 12:00 PM AUTOMATIC SPINNING LATHE OPERATOR Office Visit [facility] Oncology [address] [facility] [address] [place] [address] Gilmer Menezes MD Malignant neoplasm of colon, unspecified part of colon (HCC) (Primary Dx) 07/05/2024 11:30 AM AUTOMATIC SPINNING LATHE OPERATOR Clinical Support [facility] [place] at [address] [address] Malignant neoplasm of colon, unspecified part of colon (HCC) 06/28/2024 11:27 AM AUTOMATIC SPINNING LATHE OPERATOR - 06/28/2024 11:59 PM AUTOMATIC SPINNING LATHE OPERATOR Hospital Encounter [facility] Medical Office Building [address] [place] [id number] Malignant neoplasm of colon, unspecified part of colon (HCC) Discharge Disposition: Discharge to home or self care 06/14/2024 11:30 AM AUTOMATIC SPINNING LATHE OPERATOR Infusion [facility] at [address] [phone] Malignant neoplasm of colon, unspecified part of colon (HCC) (Primary Dx) 06/14/2024 11:00 AM AUTOMATIC SPINNING LATHE OPERATOR Clinical Support [facility] at [address] [address] Malignant neoplasm of colon, unspecified part of colon (HCC) 06/14/2024 Orders Only [facility] Oncology [address] [place] [phone] Gilmer Menezes MD 06/14/2024 Orders Only [facility] Oncology [address] [place] [phone] Gilmer Menezes MD 05/31/2024 1:00 PM AUTOMATIC SPINNING LATHE OPERATOR Infusion [facility] at [address] [address] Malignant neoplasm of colon, unspecified part of colon (HCC) (Primary Dx) 05/31/2024 12:30 PM AUTOMATIC SPINNING LATHE OPERATOR Office Visit [facility] On[facility] [address] [place] [phone] Gilmer Menezes MD Malignant neoplasm of colon, unspecified part of colon (HCC) (Primary Dx) 05/31/2024 12:00 PM AUTOMATIC SPINNING LATHE OPERATOR Clinical Support [facility] [place] at [address] [address] Malignant neoplasm of colon, unspecified part of colon (HCC) 05/31/2024 Orders Only [facility] Oncology [address] [facility] [address] [place] [phone] Moraima Jacob RN 05/17/2024 1:00 PM AUTOMATIC SPINNING LATHE OPERATOR Infusion [facility] at [address] [place] [phone] Malignant neoplasm of colon, unspecified part of colon (HCC) (Primary Dx) 05/17/2024 12:00 PM AUTOMATIC SPINNING LATHE OPERATOR Clinical Support [facility] at [address] [address] Malignant neoplasm of colon, unspecified part of colon (HCC) 05/16/2024 Orders Only [facility] Oncology [address] [place] [phone] Gilmer Menezes MD from Last 3 Months Surgical History Surgery Date Site/Laterality Comments CAROTID ENARTERECTOMYY 06/11/2019 - 07/09/2019 right (pt reports left is approx 70% blocked-monitoring) CARDIAC STENT PLACEMENT 11/09/2019 - 12/09/2019 Dr. Chintan Spears with [facility] [place] BACK SURGERY not a fusion/ for stenosis of spine CORONARY ARTERY BYPASS GRAFT 05/11/1992 - 05/10/1993 COLONOSCOPY W/ BIOPSIES 08/31/2023 PROSTATECTOMY 05/11/2020 - 05/10/2021 LUMBAR SPINE SURGERY 07/13/2023 US GUIDED PARACENTESIS 08/02/2019 N/A PORT PLACEMENT CHEST >5 YEARS 12/28/2023 N/A SUPERFICIAL BONE BIOPSY 03/14/2024 N/A CARDIAC SURGERY Medical History Medical History Date Comments Sleep apnea Uses CPAP every night Atrial fibrillation (HCC) Coronary artery disease CABG x7 in 1992, multiple Cardiac stents with m,ost recent 2 in 11/2019 HTN (hypertension) PE (pulmonary thromboembolism) (HCC) 07/2019 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 carotid endarterectomy S/P IVC filter 07/2019 removed Type 2 diabetes mellitus (HCC) GERD (gastroesophageal reflux disease) Chronic kidney disease Kidney st ones Colorectal polyps Family history of prostate problems Arthritis Cancer (HCC) Family History Medical History Relation Name Comments Colon polyps Father Coronary artery disease Father Heart attack Mother Anesthesia problems Neg Hx Relation Name Status Comments Father Mother Social History Tobacco Use Types Packs/Day Years [...] on file Legal Sex Male 3:59 PM AUTOMATIC SPINNING LATHE OPERATOR Gender Identity Male 01/29/2021 1:19 PM CDT Sexual Orientation Not on file Obstetrics History Last Filed Vital Signs Vital Sign Reading Time Taken Comments Blood Pressure 136/70 07/05/2024 11:48 AM AUTOMATIC SPINNING LATHE OPERATOR Pulse 75 07/05/2024 11:48 AM AUTOMATIC SPINNING LATHE OPERATOR Temperature 36.3 C (97.3 F) 07/05/2024 11:48 AM AUTOMATIC SPINNING LATHE OPERATOR Respiratory Rate 16 07/05/2024 11:48 AM AUTOMATIC SPINNING LATHE OPERATOR Oxygen Saturation 100% 07/05/2024 11:48 AM AUTOMATIC SPINNING LATHE OPERATOR Inhaled Oxygen Concentration - - Weight 95.7 kg (211 lb) 07/05/2024 11:48 AM AUTOMATIC SPINNING LATHE OPERATOR Height 174 cm (5' 8.5 ) 04/19/2024 10:48 AM AUTOMATIC SPINNING LATHE OPERATOR Body Mass Index 31.62 04/19/2024 10:48 AM AUTOMATIC SPINNING LATHE OPERATOR Plan of Treatment Health Maintenance Due Date Last Done Comments Albumin Creatinine Ratio, Urine 1948 Colon Cancer Screening-Colonoscopy 1948 Depression Screening 1948 Hemoglobin A1C 1948 Hepatitis C Screening 1948 Dilated Eye Exam 1948 Foot Exam 1948 DTaP/Tdap/Td Vaccine (1 - Tdap) 12/19/1959 Hepatitis B Screening 1966 Zoster Vaccine (1 of 2) 1998 Well Visit 65+ 2013 Pneumococcal vaccine 65+ (2 of 2 - PCV) 11/22/2020 11/23/2019, 10/18/2019 Covid-19 Vaccine (4 - 2023-2 5 season) 2024 02/19/2021, 07/06/2020, 06/15/2020 Influenza Vaccine (#1) 2024 , 02/11/2021, 02/28/2020 Lipid Panel 03/09/2025 03/09/2024, 12/09, 06/14/2019 Fall Risk Assessment 03/14/2025 03/14/2024, 07/24/2022, 03/26/2021 eGFR 07/05/2025 07/05/2024, 02/0 08/2024, 05/31/2024, Additional history exists Medical Devices Implanted Type Area Dude Ranch Manager Device Identifier Shelf Expiration Date Model / Serial / Lot Stents Implanted:Qty: 11 Bilateral: Heart Description:2005,2008,2009,2 014,2014,2019,2020 Stents and bypass 1993 [employer] Xcela Power Port 8fr [id number] - [id number] Implanted:Qty: 1 on 12/28/2023 at [facility] [employer] 06/20/2028 [id number] / / [id number] Explanted Type Area Dude Ranch Manager Device Identifier Shelf Expiration Date Model / Serial / Lot [employer] Eloy 180-223 Contour 6fr 26cm Large Inner Lumen Low Profile Bladder Melvin Taper Latex Free - [id number] Implanted:Qty: 1 on 09/13/2020 by Esdras Conway MD at [facility] Explanted:Qty: 1 on 10/16/2020 at [facility] [employer] Eloy 05/21/2023 180-223 / / [id number] Procedures Procedure Name Priority Date/Time Associated Diagnosis Comments PSA DIAGNOSTIC Routine 07/27/2024 2:53 PM CDT EGFR Routine 07/05/2024 11:40 AM AUTOMATIC SPINNING LATHE OPERATOR Malignant neoplasm of colon, unspecified part of colon (HCC) MANUAL DIFFERENTIAL Routine 07/05/2024 1 1:40 AM AUTOMATIC SPINNING LATHE OPERATOR Malignant neoplasm of colon, unspecified part of colon (HCC) DIFFERENTIAL AUTO Routine 07/05/2024 11: 40 AM AUTOMATIC SPINNING LATHE OPERATOR Malignant neoplasm of colon, unspecified part of colon (HCC) CBC WITH AUTO DIFFERENTIAL Routine 07/05/2024 11:40 AM AUTOMATIC SPINNING LATHE OPERATOR Malignant neoplasm of colon, unspecified part of colon (HCC) CEA Routine 07/05/2024 11:40 AM AUTOMATIC SPINNING LATHE OPERATOR Malignant neoplasm of colon, unspecified part of colon (HCC) COMPREHENSIVE METABOLIC PANEL Routine 07/05/2024 11:40 AM AUTOMATIC SPINNING LATHE OPERATOR Malignant neoplasm of colon, unspecified part of colon (HCC) FERRITIN Routine 07/05/2024 11:40 AM AUTOMATIC SPINNING LATHE OPERATOR Malignant neoplasm of colon, unspecified part of colon (HCC) IRON PROFILE W/ IBC Routine 07/05/2024 1 1:40 AM AUTOMATIC SPINNING LATHE OPERATOR Malignant neoplasm of colon, unspecified part of colon (HCC) CT CHEST ABDOMEN PELVIS W CONTRAST Schedule Routine, Read Routine (OP Routine) 06/28/2024 11:51 AM AUTOMATIC SPINNING LATHE OPERATOR Malignant neoplasm of colon, unspecified part of colon (HCC) EGFR STAT 06/14/2024 11:15 AM AUTOMATIC SPINNING LATHE OPERATOR Malignant neoplasm of colon, unspecified part of colon (HCC) DIFFERENTIAL AUTO Routine 06/14/2024 11: 15 AM AUTOMATIC SPINNING LATHE OPERATOR Malignant neoplasm of colon, unspecified part of colon (HCC) CBC WITH AUTO DIFFERENTIAL Routine 06/14/2024 11:15 AM AUTOMATIC SPINNING LATHE OPERATOR Malignant neoplasm of colon, unspecified part of colon (HCC) COMPREHENSIVE METABOLIC PANEL STAT 06/14/2024 11:15 AM AUTOMATIC SPINNING LATHE OPERATOR Malignant neoplasm of colon, unspecified part of colon (HCC) CEA Routine 06/14/2024 11:15 AM AUTOMATIC SPINNING LATHE OPERATOR Malignant neoplasm of colon, unspecified part of colon (HCC) EGFR STAT 05/31/2024 12:15 PM AUTOMATIC SPINNING LATHE OPERATOR Malignant neoplasm of colon, unspecified part of colon (HCC) DIFFERENTIAL AUTO Routine 05/31/2024 12: 15 PM AUTOMATIC SPINNING LATHE OPERATOR Malignant neoplasm of colon, unspecified part of colon (HCC) CBC WITH AUTO DIFFERENTIAL Routine 05/31/2024 12:15 PM AUTOMATIC SPINNING LATHE OPERATOR Malignant neoplasm of colon, unspecified part of colon (HCC) CEA Routine 05/31/2024 12:15 PM AUTOMATIC SPINNING LATHE OPERATOR Malignant neoplasm of colon, unspecified part of colon (HCC) COMPREHENSIVE METABOLIC PANEL STAT 05/31/2024 12:15 PM AUTOMATIC SPINNING LATHE OPERATOR Malignant neoplasm of colon, unspecified part of colon (HCC) EGFR STAT 05/17/2024 11:47 AM AUTOMATIC SPINNING LATHE OPERATOR Malignant neoplasm of colon, unspecified part of colon (HCC) DIFFERENTIAL AUTO Routine 05/17/2024 11: 47 AM AUTOMATIC SPINNING LATHE OPERATOR Malignant neoplasm of colon, unspecified part of colon (HCC) CBC WITH AUTO DIFFERENTIAL Routine 05/17/2024 11:47 AM AUTOMATIC SPINNING LATHE OPERATOR Malignant neoplasm of colon, unspecified part of colon (HCC) COMPREHENSIVE METABOLIC PANEL STAT 05/17/2024 11:47 AM AUTOMATIC SPINNING LATHE OPERATOR Malignant neoplasm of colon, unspecified part of colon (HCC) CEA Routine 05/17/2024 11:47 AM AUTOMATIC SPINNING LATHE OPERATOR Malignant neoplasm of colon, unspecified part of colon (HCC) from Last 3 Months Results * PSA diagnostic (07/27/2024 2:53 PM CDT) Blood Bryanna E. [place] ELECTRIC DOLLY OPERATOR LAB BLOOD ORDERABLES Edited R esult - Final [facility] [address] [place] [address] * eGFR (07/05/2024 11:40 AM AUTOMATIC SPINNING LATHE OPERATOR) eGFR 63 >=60 mL/min/1. 73 m2 Comment: [...] was last reviewed 2021. Testing performed by: [address] [address] Blood 07/05/2024 11:4 0 AM AUTOMATIC SPINNING LATHE OPERATOR 07/05/2024 11:43 AM AUTOMATIC SPINNING LATHE OPERATOR us Gilmer Menezes MD LAB BLOOD ORDERABLES Final Result MEGAN RIZO [address] [facility] Department [place] [address] * Differential, auto (07/05/2024 11:40 AM AUTOMATIC SPINNING LATHE OPERATOR) Neutrophil abs 3.6 1.5 - 6.5 K/cumm Comment:Testing performed by : [address] [address] Imm gran abs 0.0 0.0 - 0.1 K/cumm MEGAN RIZO Comment:Testing performed by : [address], [place]., [address] Lymphocyte abs 0.9 0.8 - 3.3 K/cumm MEGAN Comment:Testing performed by : [address], [place]., [address] Monocyte abs 0.6 0.2 - 0.8 K/cumm MEGAN Comment:Testing performed by : [address], [place]., [address] Eosinophil abs 0.0 0.0 - 0.5 K/cumm MEGAN Comment:Testing performed by : [address], [place]., [address] Basophil abs 0.0 0.0 - 0.1 K/cumm MEGAN Comment:Testing performed by : [address] [address] Neutrophil pct 69.2 % MEGAN Comment: Interpretive Data Percent cell count reference ranges are not reported, since discordance with absolute values may lead to misinterpretation of CBC data. Current Interpretive Data was last revised on 2017. Testing performed by: [address] [address] Imm gran pct 0.2 % MEGAN Comment: Interpretive Data Percent cell count reference ranges are not reported, since discordance with absolute values may lead to misinterpretation of CBC data. Current Interpretive Data was last revised on 2017. Testing performed by: [address] [address] Lymphocyte pct 17.7 % MEGAN Comment: Interpretive Data Percent cell count reference ranges are not reported, since discordance with absolute values may lead to misinterpretation of CBC data. Current Interpretive Data was last revised on 2017. Testing performed by: [address] [address] Monocyte pct 11.9 % MEGAN Comment: Interpretive Data Percent cell count reference ranges are not reported, since discordance with absolute values may lead to misinterpretation of CBC data. Current Interpretive Data was last revised on 2017. Testing performed by: [address] [address] Eosinophil pct 0.6 % MEGAN Comment: Interpretive Data Percent cell count reference ranges are not reported, since discordance with absolute values may lead to misinterpretation of CBC data. Current Interpretive Data was last revised on 2017. Testing performed by: [address] [address] Basophil pct 0.4 % MEGAN Comment: Interpretive Data Percent cell count reference ranges are not reported, since discordance with absolute values may lead to misinterpretation of CBC data. Current Interpretive Data was last revised on 2017. Testing performed by: [address] [address] Blood 07/05/2024 11:4 0 AM AUTOMATIC SPINNING LATHE OPERATOR 07/05/2024 11:43 AM AUTOMATIC SPINNING LATHE OPERATOR Gilmer Menezes MD LAB BLOOD ORDERABLES Final Result Performing Organization Address [facility] de Phone Number [facility] [address] [facility] [place] [address] * Iron profile w/ IBC (07/05/2024 11:40 AM AUTOMATIC SPINNING LATHE OPERATOR) Iron 72 50 - 150 mcg/dL Comment:Testing performed by : [address] [address] TIBC 314 250 - 400 mcg/dL MEGAN Comment:Testing performed by : [address] [address] Transferrin saturation 23 20 - 50 % MEGAN Comment:Testing performed by : [address] [address] Blood 07/05/2024 11:4 0 AM AUTOMATIC SPINNING LATHE OPERATOR 07/05/2024 1:51 PM AUTOMATIC SPINNING LATHE OPERATOR Gilmer Menezes MD LAB BLOOD ORDERABLES Final Result Performing Organization Address City/[facility] Co de Phone Number [address] [place] [address] * (ABNORMAL) CBC with auto differential (07/05/2024 11:40 AM AUTOMATIC SPINNING LATHE OPERATOR) [facility] WBC 5.2 3.8 - 9.9 K/cumm Comment:Testing performed by : [address], [address] Hgb 12.8(L) 13.0 - 17.5 g/dL MEGAN Comment:Testing performed by : [address], [address] Hct 37.0(L) 38.9 - 50.3 % MEGAN Comment:Testing performed by : [address], [address] Plt 143(L) 150 - 400 K/cumm MEGAN Comment:Testing performed by : [address], [address] MPV 9.6 9.1 - 12.3 fL MEGAN Comment:Testing performed by : [address], [address] RBC 4.05(L) 4.30 - 5.80 M/cumm MEGAN Comment:Testing performed by : [address], [address] MCV 91.4 81.3 - 96.4 fL MEGAN Comment:Testing performed by : [address], [address] MCH 31.6 27.1 - 33.3 pg MEGAN Comment:Testing performed by : [address], [address] MCHC 34.6 32.3 - 35.7 g/dL MEGAN Comment:Testing performed by : [address], [address] RDW CV 15.8(H) 11.1 - 14.9 % MEGAN Comment:Testing performed by : [address], [address] RDW SD 52.7(H) 35.7 - 48.1 fL MEGAN Comment:Testing performed by : [address], [address] NRBC abs 0.00 0.00 - 0.01 K/cumm MEGAN Comment:Testing performed by : [address] [address] Blood 07/05/2024 11:4 0 AM AUTOMATIC SPINNING LATHE OPERATOR 07/05/2024 11:43 AM AUTOMATIC SPINNING LATHE OPERATOR Gilmer Menezes MD LAB BLOOD ORDERABLES Final Result MEGAN [address] [facility] Department [place] [address] * Manual Differential (07/05/2024 11:40 AM AUTOMATIC SPINNING LATHE OPERATOR) Differential Auto Comment:Testing performed by : [address] [address] Neutrophil abs 3.6 1.5 - 6.5 K/cumm MEGAN Comment:Testing performed by : [address] [address] Imm gran abs 0.0 0.0 - 0.1 K/cumm MEGAN Comment:Testing performed by : [address] [address] Lymphocyte abs 0.9 0.8 - 3.3 K/cumm MEGAN Comment:Testing performed by : [address] [address] Monocyte abs 0.6 0.2 - 0.8 K/cumm MEGAN Comment:Testing performed by : [address] [address] Eosinophil abs 0.0 0.0 - 0.5 K/cumm MEGAN Comment:Testing performed by : [address] [address] Basophil abs 0.0 0.0 - 0.1 K/cumm MEGAN Comment:Testing performed by : [address] [address] Neutrophil pct 69.2 % MEGAN Comment: Interpretive Data Percent cell count reference ranges are not reported, since discordance with absolute values may lead to misinterpretation of CBC data. Current Interpretive Data was last revised on 2017. Testing performed by: [address] [address] Imm gran pct 0.2 % CERNICOLASA Comment: Interpretive Data Percent cell count reference ranges are not reported, since discordance with absolute values may lead to misinterpretation of CBC data. Current Interpretive Data was last revised on 2017. Testing performed by: [address] [address] Lymphocyte pct 17.7 % MEGAN Comment: Interpretive Data Percent cell count reference ranges are not reported, since discordance with absolute values may lead to misinterpretation of CBC data. Current Interpretive Data was last revised on 2017. Testing performed by: [address] [address] Monocyte pct 11.9 % CERNICOLASA Comment: Interpretive Data Percent cell count reference ranges are not reported, since discordance with absolute values may lead to misinterpretation of CBC data. Current Interpretive Data was last revised on 2017. Testing performed by: [address] [address] Eosinophil pct 0.6 % MEGAN Comment: Interpretive Data Percent cell count reference ranges are not reported, since discordance with absolute values may lead to misinterpretation of CBC data. Current Interpretive Data was last revised on 2017. Testing performed by: [address] [address] Basophil pct 0.4 % MEGAN Comment: Interpretive Data Percent cell count reference ranges are not reported, since discordance with absolute values may lead to misinterpretation of CBC data. Current Interpretive Data was last revised on 2017. Testing performed by: [address] [address] RBC morphology Consistent with RBC Indicies MEGAN Comment:Testing performed by : [address] [address] Platelet estimate Adequate MEGAN Comment:Testing performed by : [address] [address] Blood 07/05/2024 11:4 0 AM AUTOMATIC SPINNING LATHE OPERATOR 07/05/2024 11:43 AM AUTOMATIC SPINNING LATHE OPERATOR Gilmer Menezes MD LAB BLOOD ORDERABLES Final Result Performing Organization Address City/[facility] Co de Phone Number MEGAN [address] [address] * Ferritin (07/05/2024 11:40 AM AUTOMATIC SPINNING LATHE OPERATOR) Pathologist [facility] Ferritin 182 30 - 400 ng/mL Comment:Testing performed by : [address] [address] Blood 07/05/2024 11:4 0 AM AUTOMATIC SPINNING LATHE OPERATOR 07/05/2024 1:51 PM AUTOMATIC SPINNING LATHE OPERATOR Gilmer Menezes MD LAB BLOOD ORDERABLES Final Result Performing Organization Address [facility] Phone Number [id number] [address] * CEA (07/05/2024 11:40 AM AUTOMATIC SPINNING LATHE OPERATOR) Pathologist [facility] CEA 2.4 <=5.0 ng/mL Comment: Interpretive Data: Reference Range: Non-Smokers: 0.0 5.0 ng/mL Smokers: 0.0 6.5 ng/mL The Alex CEA assay procedure was used. Results from different manufacturers or methods may not be comparable. Serial testing should be performed using the same method. Current interpretive data was last revised 2022. Testing performed by: [address] [address] Blood 07/05/2024 11:4 0 AM AUTOMATIC SPINNING LATHE OPERATOR 07/05/2024 1:51 PM AUTOMATIC SPINNING LATHE OPERATOR us Gilmer Menezes MD LAB BLOOD ORDERABLES Final Result Performing Organization Address [facility] Co de Phone Number MEGAN [address] [address] * (ABNORMAL) Comprehensive metabolic panel (07/05/2024 11:40 AM AUTOMATIC SPINNING LATHE OPERATOR) Sodium 134(L) 135 - 145 mmol/L Comment:Testing performed by : [address] [address] Potassium, pl 3.7 3.3 - 4.9 mmol/L MEGAN Comment:Testing performed by : [address], [place]., [address] Chloride 95(L) 97 - 110 mmol/L MEGAN Comment:Testing performed by : [address], [place]., [address] CO2 27 22 - 32 mmol/L MEGAN Comment:Testing performed by : [address], [place]., [address] Anion gap 12 2 - 15 mmol/L MEGAN Comment:Testing performed by : [address], [place]., [address] BUN 21 6 - 25 mg/dL MEGAN Comment:Testing performed by : [address], [place]., [address] Creatinine 1.20 0.80 - 1.30 mg/dL MEGAN Comment:Testing performed by : [address], [place]., [address] Glucose 138 70 - 199 mg/dL [facility] Comment: Interpretive Data Fasting glucose >/= 126 [...] was last revised 2022. Testing performed by: [address] [address] Calcium 9.8 8.5 - 10.3 mg/dL MEGAN Comment:Testing performed by : [address], [place]., [address] Bilirubin, total 0.7 0.1 - 1.2 mg/dL MEGAN Comment:Testing performed by : [address] [address] Protein, pl 6.1(L) 6.5 - 8.5 g/dL MEGAN RIZO Comment:Testing performed by : [address] [address] Albumin 4.1 3.5 - 5.0 g/dL MEGAN Comment:Testing performed by : [address] [address] Alk phos 86 40 - 130 Units/L MEGAN Comment:Testing performed by : [address] [address] ALT 16 7 - 55 Units/L MEGAN Comment:Testing performed by : [address] [address] AST 15 10 - 50 Units/L MEGAN Comment:Testing performed by : [address] [address] Blood 07/05/2024 11:4 0 AM AUTOMATIC SPINNING LATHE OPERATOR 07/05/2024 11:43 AM AUTOMATIC SPINNING LATHE OPERATOR us Gilmer Menezes MD LAB BLOOD ORDERABLES Final Result MEGAN [facility] Department [place] [address] * CT Chest Abdomen Pelvis W Contrast (06/28/2024 11:51 AM AUTOMATIC SPINNING LATHE OPERATOR) Anatomical Region Laterality Modality Body N/A Computed Tomogra phy 07/01/2024 7:38 AM AUTOMATIC SPINNING LATHE OPERATOR Narrative 07/01/2024 7:48 AM AUTOMATIC SPINNING LATHE OPERATOR EXAM DESCRIPTION: CT CHEST ABDOMEN PELVIS W [...] Yan Hairston M.D. CH: DESI Report ID: [id number] Reading Location: [id number] Procedure Note Yan Hairston Jr., MD - [...] Electronically signed by Yan Hairston M.D. CH: Report ID: [id number] Reading Location: [place] [address] Gilmer Menezes MD IMG CT PROCEDURES Fi nal Result * (ABNORMAL) eGFR (06/14/2024 11:15 AM AUTOMATIC SPINNING LATHE OPERATOR) eGFR 52(L) >=60 mL/min/1. 73 m2 Comment: [...] was last reviewed 2021. Testing performed by: [address] [address] Blood 06/14/2024 11:1 5 AM AUTOMATIC SPINNING LATHE OPERATOR 06/14/2024 11:15 AM AUTOMATIC SPINNING LATHE OPERATOR Gilmer Menezes MD LAB BLOOD ORDERABLES Final Result [place] [id number] [facility] Department [place] [address] * Differential, auto (06/14/2024 11:15 AM AUTOMATIC SPINNING LATHE OPERATOR) Neutrophil abs 3.6 1.5 - 6.5 K/cumm Comment:Testing performed by : [address] [address] Imm gran abs 0.0 0.0 - 0.1 K/cumm MEGAN Comment:Testing performed by : [address] [address] Lymphocyte abs 1.0 0.8 - 3.3 K/cumm MEGAN Comment:Testing performed by : [address] [address] Monocyte abs 0.6 0.2 - 0.8 K/cumm MEGAN Comment:Testing performed by : [address] [address] Eosinophil abs 0.0 0.0 - 0.5 K/cumm MEGAN Comment:Testing performed by : [address] [address] Basophil abs 0.0 0.0 - 0.1 K/cumm MEGAN Comment:Testing performed by : [address] [address] Neutrophil pct 69.0 % MEGAN Comment: Interpretive Data Percent cell count reference ranges are not reported, since discordance with absolute values may lead to misinterpretation of CBC data. Current Interpretive Data was last revised on 2017. Testing performed by: [address] [address] Imm gran pct 0.4 % [facility] Comment: Interpretive Data Percent cell count reference ranges are not reported, since discordance with absolute values may lead to misinterpretation of CBC data. Current Interpretive Data was last revised on 2017. Testing performed by: [address] [address] Lymphocyte pct 18.3 % [facility] Comment: Interpretive Data Percent cell count reference ranges are not reported, since discordance with absolute values may lead to misinterpretation of CBC data. Current Interpretive Data was last revised on 2017. Testing performed by: [address] [address] Monocyte pct 11.3 % [facility] Comment: Interpretive Data Percent cell count reference ranges are not reported, since discordance with absolute values may lead to misinterpretation of CBC data. Current Interpretive Data was last revised on 2017. Testing performed by: [address] [address] Eosinophil pct 0.6 % [facility] Comment: Interpretive Data Percent cell count reference ranges are not reported, since discordance with absolute values may lead to misinterpretation of CBC data. Current Interpretive Data was last revised on 2017. Testing performed by: [address] [address] Basophil pct 0.4 % [facility] Comment: Interpretive Data Percent cell count reference ranges are not reported, since discordance with absolute values may lead to misinterpretation of CBC data. Current Interpretive Data was last revised on 2017. Testing performed by: [address] [address] Blood 06/14/2024 11:1 5 AM AUTOMATIC SPINNING LATHE OPERATOR 06/14/2024 11:15 AM AUTOMATIC SPINNING LATHE OPERATOR us Gilmer Menezes MD LAB BLOOD ORDERABLES Final Result MEGAN [address] [facility] Department [place] [address] * (ABNORMAL) CBC with auto differential (06/14/2024 11:15 AM AUTOMATIC SPINNING LATHE OPERATOR) [facility] WBC 5.2 3.8 - 9.9 K/cumm Comment:Testing performed by : [address] [address] Hgb 12.6(L) 13.0 - 17.5 g/dL MEGAN Comment:Testing performed by : [address], [address] Hct 36.8(L) 38.9 - 50.3 % MEGAN Comment:Testing performed by : [address], [address] Plt 131(L) 150 - 400 K/cumm MEGAN Comment:Testing performed by : [address], [address] MPV 9.3 9.1 - 12.3 fL MEGAN Comment:Testing performed by : [address], [address] RBC 3.94(L) 4.30 - 5.80 M/cumm MEGAN Comment:Testing performed by : [address], [address] MCV 93.4 81.3 - 96.4 fL MEGAN Comment:Testing performed by : [address] [address] MCH 32.0 27.1 - 33.3 pg MEGAN Comment:Testing performed by : [address], [address] MCHC 34.2 32.3 - 35.7 g/dL MEGAN Comment:Testing performed by : [address], [address] RDW CV 15.7(H) 11.1 - 14.9 % MEGAN Comment:Testing performed by : [address], [address] RDW SD 52.7(H) 35.7 - 48.1 fL MEGAN Comment:Testing performed by : [address] [address] NRBC abs 0.00 0.00 - 0.01 K/cumm MEGAN RIZO Comment:Testing performed by : [address] [address] Blood 06/14/2024 11:1 5 AM AUTOMATIC SPINNING LATHE OPERATOR 06/14/2024 11:15 AM AUTOMATIC SPINNING LATHE OPERATOR Gilmer Menezes MD LAB BLOOD ORDERABLES Final Result Performing Organization Address [facility] de Phone Number [place] [id number] [facility] [place] [address] * CEA (06/14/2024 11:15 AM AUTOMATIC SPINNING LATHE OPERATOR) Pathologist [facility] CEA 2.6 <=5.0 ng/mL Comment: Interpretive Data: Reference Range: Non-Smokers: 0.0 5.0 ng/mL Smokers: 0.0 6.5 ng/mL The Alex CEA assay procedure was used. Results from different manufacturers or methods may not be comparable. Serial testing should be performed using the same method. Current interpretive data was last revised 2022. Testing performed by: [address] [address] Blood 06/14/2024 11:1 5 AM AUTOMATIC SPINNING LATHE OPERATOR 06/14/2024 1:46 PM AUTOMATIC SPINNING LATHE OPERATOR Gilmer Menezes MD LAB BLOOD ORDERABLES Final Result Performing Organization Address [facility] de Phone Number [facility] [address] [place] [address] * (ABNORMAL) Comprehensive metabolic panel (06/14/2024 11:15 AM AUTOMATIC SPINNING LATHE OPERATOR) [facility] Sodium 135 135 - 145 mmol/L Comment:Testing performed by : [address] [address] Potassium, pl 3.8 3.3 - 4.9 mmol/L MEGAN RIZO Comment:Testing performed by : [address] [address] Chloride 96(L) 97 - 110 mmol/L [facility] Comment:Testing performed by : [address] [address] CO2 27 22 - 32 mmol/L [facility] Comment:Testing performed by : [address], [place]., [address] Anion gap 12 2 - 15 mmol/L [facility] Comment:Testing performed by : [address] [address] BUN 22 6 - 25 mg/dL [facility] Comment:Testing performed by : [address], [place]., [address] Creatinine 1.40(H) 0.80 - 1.30 mg/dL [facility] Comment:Testing performed by : [address] [address] Glucose 170 70 - 199 mg/dL [facility] Comment: Interpretive Data Fasting glucose >/= 126 [...] was last revised 2022. Testing performed by: [address] [address] Calcium 9.7 8.5 - 10.3 mg/dL [facility] Comment:Testing performed by : [address] [address] Bilirubin, total 0.5 0.1 - 1.2 mg/dL [facility] Comment:Testing performed by : [address] [address] Protein, pl 6.1(L) 6.5 - 8.5 g/dL [facility] Comment:Testing performed by : [address] [address] Albumin 4.0 3.5 - 5.0 g/dL MEGAN RIZO Comment:Testing performed by : [address] [address] Alk phos 89 40 - 130 Units/L MEGAN RIZO Comment:Testing performed by : [address] [address] ALT 13 7 - 55 Units/L MEGAN Comment:Testing performed by : [address] [address] AST 14 10 - 50 Units/L MEGAN Comment:Testing performed by : [address] [address] Blood 06/14/2024 11:1 5 AM AUTOMATIC SPINNING LATHE OPERATOR 06/14/2024 11:15 AM AUTOMATIC SPINNING LATHE OPERATOR us Gilmer Menezes MD LAB BLOOD ORDERABLES Final Result MEGAN [address] [facility] Department [place] [address] * eGFR (05/31/2024 12:15 PM AUTOMATIC SPINNING LATHE OPERATOR) eGFR 63 >=60 mL/min/1. 73 m2 Comment: [...] was last reviewed 2021. Testing performed by: [address] [address] Blood 05/31/2024 12:1 5 PM AUTOMATIC SPINNING LATHE OPERATOR 05/31/2024 12:17 PM AUTOMATIC SPINNING LATHE OPERATOR Chandler Miller ELECTRIC DOLLY OPERATOR LAB BLOOD ORDERABLES F inal Result [facility] [address] [facility] Department [place] [address] * (ABNORMAL) Differential, auto (05/31/2024 12:15 PM AUTOMATIC SPINNING LATHE OPERATOR) Neutrophil abs 4.5 1.5 - 6.5 K/cumm Comment:Testing performed by : [address] [address] Imm gran abs 0.0 0.0 - 0.1 K/cumm MEGAN Comment:Testing performed by : [address] [address] Lymphocyte abs 0.7(L) 0.8 - 3.3 K/cumm MEGAN Comment:Testing performed by : [address] [address] Monocyte abs 0.4 0.2 - 0.8 K/cumm MEGAN Comment:Testing performed by : [address] [address] Eosinophil abs 0.1 0.0 - 0.5 K/cumm MEGAN Comment:Testing performed by : [address] [address] Basophil abs 0.0 0.0 - 0.1 K/cumm MEGAN Comment:Testing performed by : [address] [address] Neutrophil pct 78.6 % MEGAN Comment: Interpretive Data Percent cell count reference ranges are not reported, since discordance with absolute values may lead to misinterpretation of CBC data. Current Interpretive Data was last revised on 2017. Testing performed by: [address] [address] Imm gran pct 0.3 % MEGAN Comment: Interpretive Data Percent cell count reference ranges are not reported, since discordance with absolute values may lead to misinterpretation of CBC data. Current Interpretive Data was last revised on 2017. Testing performed by: [address] [address] Lymphocyte pct 12.2 % [facility] Comment: Interpretive Data Percent cell count reference ranges are not reported, since discordance with absolute values may lead to misinterpretation of CBC data. Current Interpretive Data was last revised on 2017. Testing performed by: [address] [address] Monocyte pct 7.6 % [facility] Comment: Interpretive Data Percent cell count reference ranges are not reported, since discordance with absolute values may lead to misinterpretation of CBC data. Current Interpretive Data was last revised on 2017. Testing performed by: [address] [address] Eosinophil pct 1.0 % [facility] Comment: Interpretive Data Percent cell count reference ranges are not reported, since discordance with absolute values may lead to misinterpretation of CBC data. Current Interpretive Data was last revised on 2017. Testing performed by: [address] [address] Basophil pct 0.3 % [facility] Comment: Interpretive Data Percent cell count reference ranges are not reported, since discordance with absolute values may lead to misinterpretation of CBC data. Current Interpretive Data was last revised on 2017. Testing performed by: [address] [address] Blood 05/31/2024 12:1 5 PM AUTOMATIC SPINNING LATHE OPERATOR 05/31/2024 12:17 PM AUTOMATIC SPINNING LATHE OPERATOR us Chandler Miller NP LAB BLOOD ORDERABLES F inal Result MEGAN [address] [facility] Department of Laboratories [place], [place] [id number] * (ABNORMAL) CBC with auto differential (05/31/2024 12:15 PM AUTOMATIC SPINNING LATHE OPERATOR) WBC 5.8 3.8 - 9.9 K/cumm Comment:Testing performed by : [address] [address] Hgb 12.5(L) 13.0 - 17.5 g/dL CERNER Comment:Testing performed by : [address] [address] Hct 36.2(L) 38.9 - 50.3 % CERNER MH Comment:Testing performed by : [address] [address] Plt 160 150 - 400 K/cumm CERNER MH Comment:Testing performed by : [address] [address] MPV 8.9(L) 9.1 - 12.3 fL CERNICOLASA Comment:Testing performed by : [address] [address] RBC 3.86(L) 4.30 - 5.80 M/cumm CERNICOLASA Comment:Testing performed by : [address] [address] MCV 93.8 81.3 - 96.4 fL CERNER Comment:Testing performed by : [address] [address] MCH 32.4 27.1 - 33.3 pg CERNER Comment:Testing performed by : [address] [address] MCHC 34.5 32.3 - 35.7 g/dL CERNER Comment:Testing performed by : [address] [address] RDW CV 15.2(H) 11.1 - 14.9 % CERNER Comment:Testing performed by : [address] [address] RDW SD 51.4(H) 35.7 - 48.1 fL CERNICOLASA Comment:Testing performed by : [address] [address] NRBC abs 0.00 0.00 - 0.01 K/cumm MEGAN MH Comment:Testing performed by : [address] [address] Blood 05/31/2024 12:1 5 PM AUTOMATIC SPINNING LATHE OPERATOR 05/31/2024 12:17 PM AUTOMATIC SPINNING LATHE OPERATOR Chandler Miller LAB BLOOD ORDERABLES F inal Result Performing Organization Address [facility] de Phone Number MEGAN [address] [facility] [place] [address] * CEA (05/31/2024 12:15 PM AUTOMATIC SPINNING LATHE OPERATOR) [facility] CEA 2.0 <=5.0 ng/mL Comment: Interpretive Data: Reference Range: Non-Smokers: 0.0 5.0 ng/mL Smokers: 0.0 6.5 ng/mL The Alex CEA assay procedure was used. Results from different manufacturers or methods may not be comparable. Serial testing should be performed using the same method. Current interpretive data was last revised 2022. Testing performed by: [address] [address] Blood 05/31/2024 12:1 5 PM AUTOMATIC SPINNING LATHE OPERATOR 05/31/2024 4:21 PM AUTOMATIC SPINNING LATHE OPERATOR Chandler Miller LAB BLOOD ORDERABLES F inal Result Performing Organization Address [facility] Co de Phone Number [place] [phone] [place] [address] * (ABNORMAL) Comprehensive metabolic panel (05/31/2024 12:15 PM AUTOMATIC SPINNING LATHE OPERATOR) [facility] Sodium 133(L) 135 - 145 mmol/L Comment:Testing performed by : [address] [address] Potassium, pl 3.5 3.3 - 4.9 mmol/L MEGAN RIZO Comment:Testing performed by : [address] [address] Chloride 96(L) 97 - 110 mmol/L MEGAN RIZO Comment:Testing performed by : [address] [address] CO2 25 22 - 32 mmol/L MEGAN Comment:Testing performed by : [address] [address] Anion gap 12 2 - 15 mmol/L MEGAN Comment:Testing performed by : [address] [address] BUN 18 6 - 25 mg/dL MEGAN Comment:Testing performed by : [address] [address] Creatinine 1.20 0.80 - 1.30 mg/dL MEGAN Comment:Testing performed by : [address] [address] Glucose 195 70 - 199 mg/dL MEGAN [...] was last revised 2022. Testing performed by: [address] [address] Calcium 9.3 8.5 - 10.3 mg/dL MEGAN Comment:Testing performed by : [address] [address] Bilirubin, total 0.5 0.1 - 1.2 mg/dL MEGAN Comment:Testing performed by : [address] [address] Protein, pl 6.0(L) 6.5 - 8.5 g/dL MEGAN Comment:Testing performed by : [address] [address] Albumin 4.0 3.5 - 5.0 g/dL MEGAN Comment:Testing performed by : [address] [address] Alk phos 119 40 - 130 Units/L MEGAN RIZO Comment:Testing performed by : [facility], [address] [place] [address]., [address] ALT 12 7 - 55 Units/L MEGAN RIZO Comment:Testing performed by : [address] [address] AST 13 10 - 50 Units/L MEGAN RIZO Comment:Testing performed by : [facility], [address] [place] [address]., [address] Blood 05/31/2024 12:1 5 PM AUTOMATIC SPINNING LATHE OPERATOR 05/31/2024 12:17 PM AUTOMATIC SPINNING LATHE OPERATOR Chandler Miller NP LAB BLOOD ORDERABLES F inal Result MEGAN RIZO [address] [facility] Department [place] [address] * eGFR (05/17/2024 11:47 AM AUTOMATIC SPINNING LATHE OPERATOR) eGFR 70 >=60 mL/min/1. 73 m2 Comment: [...] was last reviewed 2021. Testing performed by: [address] [address] Blood 05/17/2024 11:4 7 AM AUTOMATIC SPINNING LATHE OPERATOR 05/17/2024 11:49 AM AUTOMATIC SPINNING LATHE OPERATOR us Salman Rajat Clif MD LAB BLOOD ORDERABLES Final Result MEGAN [address] [facility] Department [place] [address] * Differential, auto (05/17/2024 11:47 AM AUTOMATIC SPINNING LATHE OPERATOR) Neutrophil abs 5.8 1.5 - 6.5 K/cumm Comment:Testing performed by : [address] [address] Imm gran abs 0.1 0.0 - 0.1 K/cumm MEGAN Comment:Testing performed by : [address] [address] Lymphocyte abs 0.8 0.8 - 3.3 K/cumm MEGAN Comment:Testing performed by : [address] [address] Monocyte abs 0.6 0.2 - 0.8 K/cumm MEGAN Comment:Testing performed by : [address] [address] Eosinophil abs 0.0 0.0 - 0.5 K/cumm [facility] Comment:Testing performed by : [address] [address] Basophil abs 0.0 0.0 - 0.1 K/cumm MEGAN Comment:Testing performed by : [address] [address] Neutrophil pct 79.6 % [facility] Comment: Interpretive Data Percent cell count reference ranges are not reported, since discordance with absolute values may lead to misinterpretation of CBC data. Current Interpretive Data was last revised on 2017. Testing performed by: [address] [address] Imm gran pct 0.7 % MEGAN Comment: Interpretive Data Percent cell count reference ranges are not reported, since discordance with absolute values may lead to misinterpretation of CBC data. Current Interpretive Data was last revised on 2017. Testing performed by: [address] [address] Lymphocyte pct 11.0 % CERNER Comment: Interpretive Data Percent cell count reference ranges are not reported, since discordance with absolute values may lead to misinterpretation of CBC data. Current Interpretive Data was last revised on 2017. Testing performed by: [address] [address] Monocyte pct 8.1 % MEGAN Comment: Interpretive Data Percent cell count reference ranges are not reported, since discordance with absolute values may lead to misinterpretation of CBC data. Current Interpretive Data was last revised on 2017. Testing performed by: [address] [address] Eosinophil pct 0.3 % MEGAN Comment: Interpretive Data Percent cell count reference ranges are not reported, since discordance with absolute values may lead to misinterpretation of CBC data. Current Interpretive Data was last revised on 2017. Testing performed by: [address] [address] Basophil pct 0.3 % MEGAN Comment: Interpretive Data Percent cell count reference ranges are not reported, since discordance with absolute values may lead to misinterpretation of CBC data. Current Interpretive Data was last revised on 2017. Testing performed by: [address] [address] Blood 05/17/2024 11:4 7 AM AUTOMATIC SPINNING LATHE OPERATOR 05/17/2024 11:49 AM AUTOMATIC SPINNING LATHE OPERATOR Gilmer Menezes MD LAB BLOOD ORDERABLES Final Result [facility] [address] [facility] Department of Laboratories [place], [place] [id number] * (ABNORMAL) CBC with auto differential (05/17/2024 11:47 AM AUTOMATIC SPINNING LATHE OPERATOR) [facility] WBC 7.3 3.8 - 9.9 K/cumm Comment:Testing performed by : [address] [address] Hgb 12.4(L) 13.0 - 17.5 g/dL MEGAN Comment:Testing performed by : [address] [address] Hct 36.2(L) 38.9 - 50.3 % MEGAN Comment:Testing performed by : [address] [address] Plt 144(L) 150 - 400 K/cumm MEGAN Comment:Testing performed by : [address] [address] MPV 9.1 9.1 - 12.3 fL MEGAN Comment:Testing performed by : [address], [address] RBC 3.78(L) 4.30 - 5.80 M/cumm MEGAN Comment:Testing performed by : [address], [address] MCV 95.8 81.3 - 96.4 fL MEGAN Comment:Testing performed by : [address] [address] MCH 32.8 27.1 - 33.3 pg MEGAN Comment:Testing performed by : [address], [address] MCHC 34.3 32.3 - 35.7 g/dL MEGAN Comment:Testing performed by : [address], [address] RDW CV 15.6(H) 11.1 - 14.9 % MEGAN Comment:Testing performed by : [address], [address] RDW SD 54.8(H) 35.7 - 48.1 fL MEGAN Comment:Testing performed by : [address], [address] NRBC abs 0.00 0.00 - 0.01 K/cumm MEGAN Comment:Testing performed by : [address], [address] Blood 05/17/2024 11:4 7 AM AUTOMATIC SPINNING LATHE OPERATOR 05/17/2024 11:49 AM AUTOMATIC SPINNING LATHE OPERATOR Gilmer Menezes MD LAB BLOOD ORDERABLES Final Result Performing Organization Address [facility] de Phone Number MEGAN [facility] [place] [employer] [place] [address] * CEA (05/17/2024 11:47 AM AUTOMATIC SPINNING LATHE OPERATOR) [facility] CEA 2.1 <=5.0 ng/mL Comment: Interpretive Data: Reference Range: Non-Smokers: 0.0 5.0 ng/mL Smokers: 0.0 6.5 ng/mL The Alex CEA assay procedure was used. Results from different manufacturers or methods may not be comparable. Serial testing should be performed using the same method. Current interpretive data was last revised 2022. Testing performed by: [address] [address] Blood 05/17/2024 11:4 7 AM AUTOMATIC SPINNING LATHE OPERATOR 05/17/2024 1:42 PM AUTOMATIC SPINNING LATHE OPERATOR Gilmer Menezes MD LAB BLOOD ORDERABLES Final Result Performing Organization Address [facility] Co de Phone Number MEGAN [facility]0 [facility] [place] [address] * (ABNORMAL) Comprehensive metabolic panel (05/17/2024 11:47 AM AUTOMATIC SPINNING LATHE OPERATOR) [facility] Sodium 133(L) 135 - 145 mmol/L Comment:Testing performed by : [address] [address] Potassium, pl 3.9 3.3 - 4.9 mmol/L MEGAN Comment:Testing performed by : [address] [address] Chloride 96(L) 97 - 110 mmol/L MEGAN Comment:Testing performed by : [address] [address] CO2 23 22 - 32 mmol/L MEGAN Comment:Testing performed by : [address] [address] Anion gap 14 2 - 15 mmol/L MEGAN Comment:Testing performed by : [address] [address] BUN 23 6 - 25 mg/dL [facility] Comment:Testing performed by : [address] [address] Creatinine 1.10 0.80 - 1.30 mg/dL MEGAN Comment:Testing performed by : [address] [address] Glucose 207(H) 70 - 199 mg/dL [facility] Comment: Interpretive Data Fasting glucose >/= 126 [...] was last revised 2022. Testing performed by: [address] [address] Calcium 9.2 8.5 - 10.3 mg/dL [facility] Comment:Testing performed by : [address] [address] Bilirubin, total 0.7 0.1 - 1.2 mg/dL [facility] Comment:Testing performed by : [address] [address] Protein, pl 6.3(L) 6.5 - 8.5 g/dL [facility] Comment:Testing performed by : [address] [address] Albumin 3.9 3.5 - 5.0 g/dL [facility] Comment:Testing performed by : [address] [address] Alk phos 150(H) 40 - 130 Units/L [facility] Comment:Testing performed by : [address] [address] ALT 18 7 - 55 Units/L MEGAN Comment:Testing performed by : [address] [address] AST 18 10 - 50 Units/L MEGAN RIZO Comment:Testing performed by : [facility], [address], [place]., [address] Blood 05/17/2024 11:4 7 AM AUTOMATIC SPINNING LATHE OPERATOR 05/17/2024 11:49 AM AUTOMATIC SPINNING LATHE OPERATOR Gilmer Menezes MD LAB BLOOD ORDERABLES Final Result MEGAN RIZO [address] [facility] Department [place] [address] from Last 3 Months Insurance [facility] MEDICARE [facility] MEDICARE ADVANTAGE [facility] MEDICARE [employer] MEDICARE Advance Directives For more information, please contact: [phone] * Full Code (Latest Code Status on File) Date Activated Date Inactivated Comments 12/28/2023 7:16 AM 12/29/2023 5:30 AM * Full Code Date Activated Date Inactivated Comments 11/02/2023 4:41 PM 11/05/2023 3:41 PM * Full Code Date Activated Date Inactivated Comments 10/16/2020 1:38 PM 10/18/2020 8:32 PM Care Teams Direct Support Professional Home Health Relationship Specialty Start Date End Date Kaiden Marshall DO [address] [place] [address] PCP - General Family Medicine 10/10/21 Timbo Cardoso MD Consulting Physician Neurology 10/18/20 Mike Ledezma MD PhD [address] [place] [address] Radiation Oncologist Radiation Oncology 02/21/21 Edelmira Alexandre NP [address] [place] [address] Registered Nurse Family Medicine 09/08/23 Jonelle Deluna MD [address] [facility] [phone] [place] [address] Surgeon Colon and Rectal Surgery 09/29/23 Gilmer Menezes MD [address] [facility] [address] [place] [address] Medical Oncologist/Collection Systems Modeler Medical Oncology 11/24/23
--- OUTSIDE RECORDS SUMMARY | 2024-08-09 10:07 | XMS_ITS | Clinical Summary ---
Author Organization [facility] Address [address] [place] [address] Phone Care Team Providers Care Resident Services Coordinator Name Role Phone Karly Pat MD Unavailable Kaiden Marshall MD Primary Care Provider [phone] Allergies No known active allergies Medications amLODIPine (NORVASC) 2.5 MG Tablet TAKE 1 TABLET BY MOUTH TWICE A DAY 1 Active Eliquis 5 MG Tablet TAKE 1 TABLET BY MOUTH TWICE A DAY 1 Active atorvastatin (LIPITOR) 80 MG Tablet 1 Active Cholecalciferol (VITAMIN D) 125 mcg Capsule Take 5,000 Units by mouth. 1 Active irbesartan (AVAPRO) 300 MG Tablet Take 300 mg by mouth daily. 1 Active magnesium oxide (MAG-OX) 400 MG Tablet Take 500 mg by mouth. 1 Active metFORMIN (GLUCOPHAGE-XR) 500 MG TABLET SR 24 HR Take 500 mg by mouth daily. 1 Active omeprazole (PriLOSEC) 40 MG CAPSULE DELAYED RELEASE TAKE 1 CAPSULE BY MOUTH ONCE DAILY 1 Active diphenhydrAMINE -acetaminophen (BENADRYL PM) 25-500 MG Tablet Take 1 Tablet by mouth nightly as needed. Active FAMOTIDINE PO Take by mouth. A ctive chlorthalidone (HYGROTON) 25 MG Tablet Take 25 mg by mouth daily. Active ferrous sulfate 325 (65 Fe) MG Tablet Take 325 mg by mouth daily. Active pantoprazole (PROTONIX) 40 MG Tablet Delayed Response Take 40 mg by mouth daily. Active Loratadine (CLARITIN PO) Take 1 Tablet by mouth daily. Active fluticasone (FLONASE) 50 MCG/ACT Suspension 1 [place] by Nasal route nightly. Use in each nostril as directed. Active docusate sodium (COLACE) 100 MG Capsule Take 100 mg by mouth daily. Active rOPINIRole (REQUIP) 1 MG Tablet Take 1 mg by mouth nightly. Active clopidogrel (PLAVIX) 75 MG Tablet Take 75 mg by mouth daily. Active prochlorperazin e (COMPAZINE) 10 MG Tablet Take 10 mg by mouth every 6 hours as needed. Active fluorouracil (ADRUCIL) 1 GM/20ML Solution by Intravenous route once. Active aspirin 81 MG Chewable Tablet Take 81 mg by mouth daily. Active Immunizations Immunization Administration Dates Next Due Covid-19, Mrna, Lnp-s, Pf, 30 Mcg/0.3 Ml Dose (Juhi álvarez) 02/19/2021 Family History Medical History Relation Name Comments Coronary Artery Disease Father Heart Disease Mother Relation Name Status Comments Father Mother Sister Alive Social History Tobacco Use Types Packs/Day Years Used Date Smoking Tobacco: Never Smokeless Tobacco: Never Tobacco Cessation:Counseling Given: Not Answered Alcohol Use Standard Drinks/Week Comments Not Currently 0 (1 standard drink = 0.6 oz pur e alcohol) Sexually Active Control Partners Comments Yes Male, Female Sex and Gender Information Value Date Recorded Sex Assigned at Not on file Legal Sex Male 1:28 PM CDT Gender Identity Male 01/30/2023 1:28 PM CDT Sexual Orientation Straight 01/30/2023 1: 29 PM CDT Last Filed Vital Signs Vital Sign Reading Time Taken Comments Blood Pressure 122/73 02/22/2024 9:40 AM CDT Pulse 84 02/22/2024 9:40 AM CDT Temperature 36.3 C (97.3 F) 02/22/2024 9:40 AM CDT Respiratory Rate 22 02/22/2024 9:40 AM CDT Oxygen Saturation 99% 02/22/2024 9:40 AM CDT Inhaled Oxygen Concentration - - Weight 95.7 kg (211 lb) 02/22/2024 9:40 AM CDT Height 177.8 cm (5' 10 ) 05/26/2023 9:24 AM SEWING MACHINIST Body Mass Index 30.28 05/26/2023 9:24 AM SEWING MACHINIST Plan of Treatment Upcoming Encounters Date Type Department Care Team (Late st Contact Info) Description 02/21/2025 10:00 AM CDT Office Visit [facility] - Endocrinology - [place] [address] [place] [address] Karly Pat MD [address] [address] Health Maintenance Due Date Last Done Comments Hepatitis C Virus (HCV) Screening 1950 TdaP Immunization 1948 Zoster Immunization (1 of 2) 12/19/1967 Colonoscopy 1993 Colorectal Cancer Screening 1993 Cologuard 1998 Immunochemical Fecal Occult Blood 1998 Hepatitis B Immunization (1 of 3 - Risk 3-dose series) 2008 Pneumococcal Immunization (5 0+ years) (2 of 2 - PCV) 11/22/2020 11/23/2019, 10/18/2019 Respiratory Syncytial Virus (RSV) Immunization (Adult) (1 - 1-dose 75+ series) 12/19/2023 Influenza Immunization (#1) 01/10/202409/2020, 02/11/2021, 02/28/2020 SARS-COV-2 Immunization ( season) 2024 02/19/2021, 07/06/2020, 06/15/2020 Meningococcal Immunization (ACWY) Aged Out No longer eligible b ased on patient's age to complete this topic Rotavirus Immunization Aged Out No lo nger eligible based on patient's age to complete this topic Insurance MEDICARE C AETNA Care Teams Resident Services Coordinator Relationship Specialty Start Date End Date Kaiden Marshall MD [address] [place] [id number] PCP - General Family Medicine 02/20/22 Karly Pat MD [address] [phone] Consulting Physician Endocrinology 02/11/22
--- OUTSIDE RECORDS SUMMARY | 2024-08-09 10:07 | XMS_ITS | Encounter Summary ---
Author Organization [facility] Address [address] [place] [address] Care Team Providers Care Edger Machine Helper Name Role Phone Chintan Spears MD Unavailable Unavailabl e Giuseppe Kulkarni MD Primary Care Provider Angela Miramontes [facility] Unavailable [phone] Cabrera Crouch MD Unavailable [phone] Teresa Morin APRN, MOLDER VACUUM-C Unavailable [phone] Ang Hudson MD Unavailable Kaiden Marshall DO Primary Care Provider [phone] Kaiden Marshall DO Primary Care Provider [phone] Matteo Denise MD Unavailable [phone] Jonelle Deluna MD Unavailable [phone] Houston Beaver MD Unavailable [phone] Encounter Details Date Type Department Care Team (Late st Contact Info) Description 10/02/2021 Pre-Procedure Call [employer] Maintenance Technician Pre/Post [address] [place], [place] [id number] Chintan Spears MD Social History Tobacco Use Types Packs/Day Years Used Date Smoking Tobacco: Never Smokeless Tobacco: Never Alcohol Use Standard Drinks/Week Comments Yes 0 (1 standard drink = 0.6 oz pur e alcohol) rarely Sex and Gender Information Value Date Recorded Sex Assigned at Male 05/25/2024 9:04 AM WET COTTON FEEDER Legal Sex Male 9:59 PM CDT Gender Identity Not on file Sexual Orientation Not on file Occupation Industry Job Start Date Job End Date Retired Not on file Not on file Not on file COVID-19 Exposure Response Date Recorded In the last 10 days, have isidro aguilar been in contact with someone who was confirmed or suspected to have Coronavirus/COVID-19? No / Unsure 10/04/2021 10:56 AM CDT documented as of this encounter [...] Info) Description 12/27/2024 9:[address] [facility] [address] [place] [address] Ang Hudson MD [address] [facility], [address] [place] [address] 12/27/2024 10:00 AM CDT Office Visit [facility] [address] [place] [address] [place] [phone] Ang Hudson MD [address] [facility], [address] [place] [address] 06/02/2025 10:00 AM WET COTTON FEEDER Office Visit [facility] [address] [place] [address] Teresa Morin APRN, MOLDER VACUUM-C [address] [facility] [address] [place] [address] documented as of this encounter Visit Diagnoses Not on filedocumented in this encounter Care Teams Edger Machine Helper Relationship Specialty Start Date End Date Giuseppe Kulkarni MD [address] [facility] [address] [place] [address] PCP - General FAMILY PRACTICE 06/09/19 10/14/21 Kaiden Marshall DO [address] [place] [address] PCP - General FAMILY PRACTICE 10/15/21 11/11/22 Kaiden Marshall DO [address] [place] [address] PCP - General FAMILY PRACTICE 11/12/22 Chintan Spears MD [place] Quality Consultant CARDIOVASCULAR DISEASE 01/03/16 12/20/23 Angela Miramontes AGACNP- [address] [place] [address] NURSE PRACTITIONER 07/07/19 07/05/23 Cabrera Crouch MD [address] [place] [address] CARDIOTHORACIC SURGERY 10/26/19 4 Teresa Morin APRN, MOLDER VACUUM-C [address] [facility] [address] [place] [address] NURSE PRACTITIONER 12/01/19 Ang Hudson MD [address] [facility] [address] [address] Vascular/Quality Consultant INTERNAL MEDICINE 01/05/20 [place] [address] [place], [place] [id number] Consulting Physician ORTHOPAEDIC SURGERY 07/06/23 Jonelle Deluna MD [address] [place] [address] COLON/RECTAL SURGERY 10/06/23 Houston Beaver MD [address] [place] [address] Consulting Physician INTERVENTIONAL CARDIOLOGY 05/25/24 documented as of this encounter
--- OUTSIDE RECORDS SUMMARY | 2024-08-09 10:07 | XMS_ITS ---
Author Organization [facility] Address [address] [place] [address] Care Team Providers Care Procurement Director Name Role Phone Timbo Cardoso MD Unavailable Mike Ledezma MD PhD Unavailable [phone] Kaiden Marshall DO Primary Care Provider Edelmira Alexandre NP Unavailable [phone] Jonelle Deluna MD Unavailable [phone] Gilmer Menezes MD Unavailable [phone] Active Problems Problem Noted Date Diagnosed Date DVT of lower extremity, bilateral 03/07/2024 Iron deficiency anemia due to chronic blood loss 01/13/2024 Anemia 01/12/2024 Colon cancer 11/02/2023 Acute postoperative abdominal pain 11/02/2023 Coronary artery disease invo lving [place] coronary artery of [place] heart 05/02/2023 Iron deficiency anemia 05/12/2022 AV [...] (08/15/2020): Added automatically from request for surgery [id number] Assessment & Plan (02/12/2022 11:29 AM CDT): [...] (07/12/2020): Added automatically from request for surgery [id number] Rising PSA following treatme nt for malignant neoplasm of prostate 04/20/2020 Overview (04/20/2020): Added automatically from request for surgery [id number] Elevated PSA 04/20/2020 Overview (03/07/2024): Added automatically from request for surgery [id number] Edema of left lower extremity 02/28/2020 History [...] 11/21/2014 JOSE R (obstructive sleep apnea) 11/14/2014 Current Treatment and Therapy Plans iron dextran (INFED) infusion* Plan Start Date:01/19/2024 Plan Provider:Gilmer Menezes MD Linked Problems Prostate cancer (HCC)Anemia, unspecified typeIron deficiency anemia due to chronic blood loss Treatment Medications No medications scheduled. Past Treatment and Therapy Plans Oncology Chemotherapy Treatment Plan Name Start Date Discontinue Date Treatment Medications Discontinue Reason Plan Provider Cycles Fluorouracil (D1, D15) / Leucovorin (D1, D15) 28 Day Cycles - Colon 12/17/2023 06/28/2024 dexAMETHasone (DECADRON)fluoro uracil (ADRUCIL)fluorou racil (ADRUCIL) infusion - for home infusion (ADRUCIL)leucovo rinleucovorin IVPB in 250 mL Therapy Complete Gilmer Menezes MD 7 of 7 cycles started Specialty Infusion Treatment Plan Name Start Date Discontinue Date Treatment Medications Discontinue Reason Plan Provider ELIGARD INJECTION - 45 MG EVERY 24 WEEKS 03/26/2021 03/26/2021 leuprolide (ELIGARD) Therapy Complete Mike Ledezma MD PhD Radiation Treatments * Course [id number]_21 05/16/2021 - 07/09/2021 Treatment Period Energy Fraction Dose Fractions Total Dose Plans Planned Prost_bed_BST 06/24/2021 - 07/09/2021 180 12 / 2,160 Pelvis_Rescan 05/24/2021 - 06/21/2021 180 19 / 3,420 PELVIS 05/16/2021 - 05/23/2021 180 6 / 4,500 Reference Points Delivered Prost_bed_boost 06/24/2021 - 07/09/2021 2,160 Pelvis 05/16/2021 - 06/21/2021 4,500 Lifetime Dose Tracking * Chemical Lifetime Dose Automatic Entry Manual Entr y Fluoro Time 2 minutes 2 minutes 0 minutes Air kerma at the reference point (Ka,r) 16.2 mGy 1 6.2 mGy 0 mGy Resolved Problems Problem Noted Date Diagnosed Date Resolved Date Malignant neoplasm of colon 10/06/2023 11/24/2023
--- OUTSIDE RECORDS SUMMARY | 2024-08-09 10:07 | XMS_ITS | Encounter Summary ---
Author Organization [facility] Address [address] [place] [address] Care Team Providers Care Boathouse Keeper Name Role Phone Chintan Spears MD Unavailable Unavailabl Pérez Ambrocio MD Primary Care Provider [phone] Giuseppe Kulkarni MD Primary Care Provider Angela Miramontes [facility] Unavailable [phone] Cabrera Crouch MD Unavailable [phone] Teresa Morin APRN, RECREATION TECHNICIAN-C Unavailable Ang Hudson MD Unavailable Kaiden Marshall DO Primary Care Provider [phone] Kaiden Marshall DO Primary Care Provider [phone] Matteo Denise MD Unavailable [phone] Jonelle Deluna MD Unavailable [phone] Houston Beaver MD Unavailable [phone] Encounter Details Date Type Department Care Team (Late st Contact Info) Description 02/15/2019 [employer] Message Enc [facility] DEPARTMENT [facility] [address] [facility] Provider Visit Follow Up Social History Tobacco Use Types Packs/Day Years Used Date Smoking Tobacco: Never Smokeless Tobacco: Never Alcohol Use Standard Drinks/Week Comments Yes 0 (1 standard drink = 0.6 oz pur e alcohol) Occasionally Sex and Gender Information Value Date Recorded Sex Assigned at Male 05/25/2024 9:04 AM HVAC SALES ENGINEER Legal Sex Male 9:59 PM CDT Gender Identity Not on file Sexual Orientation Not on file Occupation Industry Job Start Date Job End Date Retired Not on file Not on file Not on file documented as of this encounter Plan of Treatment Upcoming Encounters Date Type Department Care Team (Late st Contact Info) Description 12/27/2024 9:30 AM CDT Appointment [address] [place] [address] Ang Hudson MD [address] [facility], [address] [place] [address] 12/27/2024 10:00 AM CDT Office Visit [facility] [place] [address] Ang Hudson MD [address] [facility], [facility] [address] [place] [address] 06/02/2025 10:00 AM HVAC SALES ENGINEER [facility] [address] [place] [phone] Teresa Morin APRN, RECREATION TECHNICIAN-C [address] [facility] [address] [place] [address] documented as of this encounter Visit Diagnoses Not on filedocumented in this encounter Additional Health Concerns Infection Onset Date Last Indicated Resolved Time COVID-19 Rule Out 11/19/2019 11/19/2019 11/20/2019 10:43 PM CDT COVID-19 Rule Out 12/24/2019 12/24/2019 12/25/2019 12:13 PM CDT COVID-19 Rule Out 07/31/2020 07/31/2020 08/01/2020 7:36 PM CDT documented as of this encounter Care Teams Boathouse Keeper Relationship Specialty Start Date End Date Pérez Herr MD [address] [place] [address] PCP - General FAMILY PRACTICE 11/16/18 06/08/19 Giuseppe Kulkarni MD [address] [facility] [address] [place] [address] PCP - General FAMILY PRACTICE 06/09/19 10/14/21 Kaiden Marshall DO [address] [place] [address] PCP - General FAMILY PRACTICE 10/15/21 11/11/22 Kaiden Marshall DO [address] [place] [address] PCP - General FAMILY PRACTICE 11/12/22 Chintan Spears MD [place] [employer] CARDIOVASCULAR DISEASE 01/03/16 12/20/23 Angela Miramontes AGACNP- [address] [place] [address] NURSE PRACTITIONER 07/07/19 07/05/23 Cabrera Crouch MD [address] [place] [address] CARDIOTHORACIC SURGERY 10/26/19 4 Teresa Morin APRN, RECREATION TECHNICIAN-C [address] [place] [phone] NURSE PRACTITIONER 12/01/19 Ang Hudson MD [address] [place] [address] Vascular/Shearing Shed Hand INTERNAL MEDICINE 01/05/20 Matteo Denise MD [address] [place] [address] Consulting Physician ORTHOPAEDIC SURGERY 07/06/23 Jonelle Deluna MD [address] [place] [address] COLON/RECTAL SURGERY 10/06/23 Houston Beaver MD [address] [place] [address] Consulting Physician INTERVENTIONAL CARDIOLOGY 05/25/24 documented as of this encounter
--- OUTSIDE RECORDS SUMMARY | 2024-08-09 10:08 | XMS_ITS | Encounter Summary ---
Author Organization [facility] Address [address] [place] [address] Care Team Providers Care Psychologist Engineering Name Role Phone Chintan Spears MD Unavailable Unavailabl Angela Hoffmann [facility] Unavailable [phone] Cabrera Crouch MD Unavailable [phone] Teresa Morin APRN FILE KEEPER-C Unavailable Ang Hudson MD Unavailable Kaiden Marshall DO Primary Care Provider [phone] Kaiden Marshall DO Primary Care Provider [phone] Matteo Denise MD Unavailable [phone] Jonelle Deluna MD Unavailable [phone] Houston Beaver MD Unavailable [phone] Encounter Details Date Type Department Care Team (Late st Contact Info) Description 02/20/2022 Hospital Orders Only [employer] Agent Pre/Post [address] [place] [address] Chintan Spears MD Social History Tobacco Use Types Packs/Day Years Used Date Smoking Tobacco: Never Smokeless Tobacco: Never Alcohol Use Standard Drinks/Week Comments Yes 0 (1 standard drink = 0.6 oz pur e alcohol) rarely Sex and Gender Information Value Date Recorded Sex Assigned at Male 05/25/2024 9:04 AM LITERACY TEACHER Legal Sex Male 9:59 PM CDT Gender Identity Not on file Sexual Orientation Not on file Occupation Industry Job Start Date Job End Date Retired Not on file Not on file Not on file COVID-19 Exposure Response Date Recorded In the last 10 days, have yo u been in contact with someone who was confirmed or suspected to have Coronavirus/COVID-19? No / Unsure 02/20/2022 7:45 AM CDT documented as of this encounter Functional Status * RETIRED Are you deaf or do you have serious difficulty hearing Answer Date of Assessment Author Status No 01/07/2022 3:00 PM CDT Activ e * RETIRED Are you blind or do you have serious difficulty seeing, even when wearing glasses? Answer Date of Assessment Author Status No 01/07/2022 3:00 PM CDT Activ e * Do you have serious difficulty walking or climbing stairs? Answer Date of Assessment Author Status No 01/07/2022 3:00 PM CDT Branden Victor RN Active * Do you have difficulty dressing or bathing? Answer Date of Assessment Author Status No 01/07/2022 3:00 PM CDT Branden Victor RN Active * Because of a physical, mental, or emotional condition, do you have difficulty doing errands alone such as visiting a doctor's office or shopping? Answer Date of Assessment Author Status No 01/07/2022 3:00 PM CDT Branden Victor RN Active documented as of this encounter Mental Status * Because of a physical, mental, or emotional condition, do you have serious difficulty concentrating, remembering, or making decisions? Answer Entry Date Author Status No 01/07/2022 3:00 PM CDT Branden Victor RN Active documented in this encounter Plan of Treatment Upcoming Encounters Date Type Department Care Team (Late st Contact Info) Description 12/27/2024 9:30 AM CDT Appointment [facility] [address] [place] [address] Ang Hudson MD [address] [facility], [address] [place] [address] 12/27/2024 10:00 AM CDT Office Visit [facility] [phone] Ang Hudson MD [address] [facility], [address] [place] [address] 06/02/2025 10:00 AM LITERACY TEACHER Office Visit [facility] [address] [place] [address] Teresa Morin APRN, FILE KEEPER-C [address] [facility] [address] [place] [address] documented as of this encounter Goals Goal Patient Goal Type Associated Problems Recent Progress Patient-Stated? Author Safety Patient/family will have appropriate support at home upon discharge General No Mikaela Jiang, RN Patient will return to prior living situation and remain independent in ADLs upon discharge from hospital Lifestyle No Nelida Muniz RN documented as of this encounter Visit Diagnoses Not on filedocumented in this encounter Care Teams Psychologist Engineering Relationship Specialty Start Date End Date Kaiden Marshall DO [address] [place] [address] PCP - General FAMILY PRACTICE 10/15/21 11/11/22 Kaiden Marshall DO [address] [place] [address] PCP - General FAMILY PRACTICE 11/12/22 Chintan Spears MD [place] Committee Member CARDIOVASCULAR DISEASE 01/03/16 12/20/23 Angela Miramontes AGACNP- [address] [id number] NURSE PRACTITIONER 07/07/19 07/05/23 Cabrera Crouch MD [address] [address] CARDIOTHORACIC SURGERY 10/26/19 4 Teresa Morin APRN, FILE KEEPER-C [address] [facility] [address] [place] [phone] NURSE PRACTITIONER 12/01/19 Ang Hudson MD [address] [facility] [address] [place] [phone] Vascular/Committee Member INTERNAL MEDICINE 01/05/20 [place] [address] [place] [address] Consulting Physician ORTHOPAEDIC SURGERY 07/06/23 Jonelle Deluna MD [address] [place] [address] COLON/RECTAL SURGERY 10/06/23 Houston Beaver MD [address] [place] [address] Consulting Physician INTERVENTIONAL CARDIOLOGY 05/25/24 documented as of this encounter
--- OUTSIDE RECORDS SUMMARY | 2024-08-09 10:08 | XMS_ITS | Encounter Summary ---
Author Organization [facility] Address [address] [place] [address] Care Team Providers Care Quantitative Researcher Name Role Phone Chintan Spears MD Unavailable Unavailabl Angela Hoffmann [facility] Unavailable [phone] Cabrera Crouch MD Unavailable [phone] Teresa Morin APRN GIRLS TENNIS COACH-C Unavailable Ang Hudson MD Unavailable Kaiden Marshall DO Primary Care Provider [phone] Kaiden Marshall DO Primary Care Provider [phone] Matteo Denise MD Unavailable [phone] Jonelle Deluna MD Unavailable [phone] Houston Beaver MD Unavailable [phone] Encounter Details Date Type Department Care Team (Late st Contact Info) Description 05/01/2022 Abstract [facility] [place] [address] [place] [address] Chintan Spears MD Social History Tobacco Use Types Packs/Day Years Used Date Smoking Tobacco: Never Smokeless Tobacco: Never Alcohol Use Standard Drinks/Week Comments Yes 0 (1 standard drink = 0.6 oz pur e alcohol) rarely Sex and Gender Information Value Date Recorded Sex Assigned at Male 05/25/2024 9:04 AM NEIGHBORHOOD COORDINATOR Legal Sex Male 9:59 PM CDT Gender Identity Not on file Sexual Orientation Not on file Occupation Industry Job Start Date Job End Date Retired Not on file Not on file Not on file COVID-19 Exposure Response Date Recorded In the last 10 days, have isidro u been in contact with someone who was confirmed or suspected to have Coronavirus/COVID-19? No / Unsure 04/28/2022 12:10 PM NEIGHBORHOOD COORDINATOR documented as of this encounter Functional Status [...] Info) Description 12/27/2024 9:30 AM CDT Appointment [facility] [address] [place] [address] Ang Hudson MD [address] [facility], [address] [place] [address] 12/27/2024 10:00 AM CDT Office Visit [facility] [place] [address] Ang Hudson MD [address] [facility] [address] [place] [address] 06/02/2025 10:00 AM NEIGHBORHOOD COORDINATOR Office Visit [facility] [place] [address] [place] [address] Teresa Morin, GLAZE SPRAYER, GIRLS TENNIS COACH-C [address] [facility] [address] [place] [address] documented as of this encounter Goals Goal Patient Goal Type Associated Problems Recent Progress Patient-Stated? Author Safety Patient/family will have appropriate support at home upon discharge General Mikaela Miramontes, RN Patient will return to prior living situation and remain independent in ADLs upon discharge from hospital Lifestyle No Nelida Muniz RN documented as of this encounter Procedures Procedure Name Priority Date/Time Associated Diagnosis Comments HEMOGLOBIN AND HEMATOCRIT Routine 04/29/2022 3:49 PM NEIGHBORHOOD COORDINATOR HEMOGLOBIN AND HEMATOCRIT Routine 04/29/2022 12:25 PM NEIGHBORHOOD COORDINATOR HEMOGLOBIN AND HEMATOCRIT Routine 04/29/2022 8:15 AM NEIGHBORHOOD COORDINATOR documented in this encounter Results * HEMOGLOBIN AND HEMATOCRIT (04/29/2022 3:49 PM NEIGHBORHOOD COORDINATOR) HGB 8.6 12.4 - 15.3 HCT 27.7 37.0 - 46.0 04/29/2022 3:49 PM NEIGHBORHOOD COORDINATOR us Default History Genericprovider LABORATORY Final Result * HEMOGLOBIN AND HEMATOCRIT (04/29/2022 12:25 PM NEIGHBORHOOD COORDINATOR) HGB 7.3 12.4 - 15.3 HCT 25.0 37.0 - 46.0 04/29/2022 12:2 5 PM NEIGHBORHOOD COORDINATOR us Default History Genericprovider LABORATORY Final Result * HEMOGLOBIN AND HEMATOCRIT (04/29/2022 8:15 AM NEIGHBORHOOD COORDINATOR) HGB 6.2 12.4 - 15.3 HCT 21.2 37.0 - 46.0 04/29/2022 8:15 AM NEIGHBORHOOD COORDINATOR us Default History Genericprovider LABORATORY Final Result documented in this encounter Visit Diagnoses Not on filedocumented in this encounter Care Teams Quantitative Researcher Relationship Specialty Start Date End Date Kaiden Marshall DO [address] [place] [address] PCP - General FAMILY PRACTICE 10/15/21 11/11/22 Kaiden Marshall DO [address] [place] [address] PCP - General FAMILY PRACTICE 11/12/22 Chintan Spears MD [place] Sole Inker CARDIOVASCULAR DISEASE 01/03/16 12/20/23 Angela Miramontes AGACNP- [address] [place] [address] NURSE PRACTITIONER 07/07/19 07/05/23 Cabrera Crouch MD [address] [place] [address] CARDIOTHORACIC SURGERY 10/26/19 4 Teresa Morin APRN, GIRLS TENNIS COACH-C [address] [place] [address] [address] [place] [address] NURSE PRACTITIONER 12/01/19 Ang Hudson MD [address] [facility] [address] [place] [address] Vascular/Sole Inker INTERNAL MEDICINE 01/05/20 Matteo Denise MD [address] [place], [place] [address] Consulting Physician ORTHOPAEDIC SURGERY 07/06/23 Jonelle Deluna MD [address] [place] [address] COLON/RECTAL SURGERY 10/06/23 Houston Beaver MD [address] [place] [address] Consulting Physician INTERVENTIONAL CARDIOLOGY 05/25/24 documented as of this encounter
--- OUTSIDE RECORDS SUMMARY | 2024-08-09 10:08 | XMS_ITS | Encounter Summary ---
Author Organization [facility] Address [address] [place] [address] Care Team Providers Care Program Director/Air Personality Name Role Phone Chintan Spears MD Unavailable Unavailabl Angela Hoffmann [facility] Unavailable [phone] Cabrera Crouch MD Unavailable [phone] Teresa Morin APRN OPHTHALMOLOGIST-C Unavailable [phone] Ang Hudson MD Unavailable Kaiden Marshall DO Primary Care Provider [phone] Kaiden Marshall DO Primary Care Provider [phone] Matteo Denise MD Unavailable [phone] Jonelle Deluna MD Unavailable [phone] Houston Beaver MD Unavailable [phone] Encounter Details Date Type Department Care Team (Late st Contact Info) Description 03/03/2022 Abstract [facility] [address] [place] [address] Chintan Spears MD Social History Tobacco Use Types Packs/Day Years Used Date Smoking Tobacco: Never Smokeless Tobacco: Never Alcohol Use Standard Drinks/Week Comments Yes 0 (1 standard drink = 0.6 oz pur e alcohol) rarely Sex and Gender Information Value Date Recorded Sex Assigned at Male 05/25/2024 9:04 AM NET MVC DEVELOPER Legal Sex Male 9:59 PM CDT [...] suspected to have Coronavirus/COVID-19? No / Unsure 02/25/2022 10:03 AM CDT documented as of this encounter [...] 9:[address] [facility] [place] [address] Ang Hudson MD [address], [address] [place] [address] 12/27/2024 10:00 AM CDT Office Visit [facility] [place] [address] Ang Hudson MD [address] [facility] [address] [place] [address] 06/02/2025 10:00 AM NET MVC DEVELOPER Office Visit [facility] [address] [place] [address] Teresa Morin, MANAGER NEW PRODUCT, OPHTHALMOLOGIST-C [address] [facility] [address] [place] [address] documented as of this encounter Goals Goal Patient Goal Type Associated Problems Recent Progress Patient-Stated? Author Safety Patient/family will have appropriate support at home upon discharge General Mikaela Miramontes, RN Patient will return to prior living situation and remain independent in ADLs upon discharge from hospital Lifestyle Nelida Golden RN documented as of this encounter Visit Diagnoses Not on filedocumented in this encounter Care Teams Program Director/Air Personality Relationship Specialty Start Date End Date Kaiden Marshall DO [address] [place] [address] PCP - General FAMILY PRACTICE 10/15/21 11/11/22 Kaiden Marshall DO [address] [place] [address] PCP - General FAMILY PRACTICE 11/12/22 Chintan Spears MD [place] [employer] Electrical Engineer CARDIOVASCULAR DISEASE 01/03/16 12/20/23 Angela Miramontes AGACNP- [address] [id number] NURSE PRACTITIONER 07/07/19 07/05/23 Cabrera Crouch MD [address] [address] CARDIOTHORACIC SURGERY 10/26/19 4 Teresa Morin APRN, OPHTHALMOLOGIST-C [address] [facility] [address] [place] [address] NURSE PRACTITIONER 12/01/19 Ang Hudson MD [address] [facility] [address] [place] [address] Vascular/Avionics Electrical Engineer INTERNAL MEDICINE 01/05/20 Matteo Denise MD [address] [place] [address] Consulting Physician ORTHOPAEDIC SURGERY 07/06/23 Jonelle Deluna MD [address] [place] [address] COLON/RECTAL SURGERY 10/06/23 Houston Beaver MD [address] [place] [address] Consulting Physician INTERVENTIONAL CARDIOLOGY 05/25/24 documented as of this encounter
--- OUTSIDE RECORDS SUMMARY | 2024-08-09 10:08 | XMS_ITS | Encounter Summary ---
Author Organization [facility] Address [address] [place] [address] Care Team Providers Care Hot Saw Helper Name Role Phone Rita Lee MD Primary Care Provider Chintan Martinez MD Unavailable Unavailabl Pérez Ambrocio MD Primary Care Provider [phone] Giuseppe Kulkarni MD Primary Care Provider Angela Miramontes [facility] Unavailable [phone] Cabrera Crouch MD Unavailable [phone] Teresa Morin APRN STOCK LAYER-C Unavailable Ang Hudson MD Unavailable Kaiden Marshall DO Primary Care Provider [phone] Kaiden Marshall DO Primary Care Provider [phone] Matteo Denise MD Unavailable [phone] Jonelle Deluna MD Unavailable [phone] Houston Beaver MD Unavailable [phone] Encounter Details Date Type Department Care Team (Late st Contact Info) Description 04/29/2017 Abstract [facility] [address] [place] [address] Chintan Spears MD Social History Tobacco Use Types Packs/Day Years Used Date Smoking Tobacco: Never Smokeless Tobacco: Never Alcohol Use Standard Drinks/Week Comments Yes 0 (1 standard drink = 0.6 oz pur e alcohol) Occasionally Sex and Gender Information Value Date Recorded Sex Assigned at Male 05/25/2024 9:04 AM IGNITION SPECIALIST Legal Sex Male 9:59 PM CDT Gender Identity Not on file Sexual Orientation Not on file Occupation Industry Job Start Date Job End Date Retired Not on file Not on file Not on file documented as of this encounter Plan of Treatment Upcoming Encounters Date Type Department Care Team (Late st Contact Info) Description 12/27/2024 9:30 AM CDT Appointment [address] [place] [address] Ang Hudson MD [address] [facility], [address] [place] [address] 12/27/2024 10:00 AM CDT Office Visit [facility] [place] [address] Ang Hudson MD [address] [facility], [address] [place] [address] 06/02/2025 10:00 AM IGNITION SPECIALIST Office Visit [facility] [address] [place] [address] Teresa Morin, HOME APPLIANCE TECH, STOCK LAYER-C [address] [facility] [address] [place] [address] documented as of this encounter Visit Diagnoses Not on filedocumented in this encounter Additional Health Concerns Infection Onset Date Last Indicated Resolved Time COVID-19 Rule Out 11/19/2019 11/19/2019 11/20/2019 10:43 PM CDT COVID-19 Rule Out 12/24/2019 12/24/2019 12/25/2019 12:13 PM CDT COVID-19 Rule Out 07/31/2020 07/31/2020 08/01/2020 7:36 PM CDT documented as of this encounter Care Teams Hot Saw Helper Relationship Specialty Start Date End Date Rita Lee MD PCP - General SURGERY 01/03/16 11/15/18 Pérez Herr MD [address] [place] [address] PCP - General FAMILY PRACTICE 11/16/18 06/08/19 [place] [address] [place] [address] [address] [place] [address] PCP - General FAMILY PRACTICE 06/09/19 10/14/21 Kaiden Marshall DO [address] [place] [address] PCP - General FAMILY PRACTICE 10/15/21 11/11/22 Kaiden Marshall DO [address] [place] [address] PCP - General FAMILY PRACTICE 11/12/22 Chintan Spears MD [place] Methods Analyst CARDIOVASCULAR DISEASE 01/03/16 12/20/23 Angela Miramontes AGACNP- [address] [address] NURSE PRACTITIONER 07/07/19 07/05/23 Cabrera Crouch MD [address] [address] CARDIOTHORACIC SURGERY 10/26/19 4 Teresa Morin APRN, STOCK LAYER-C [address] [facility][1] [address] [place] [address] NURSE PRACTITIONER 12/01/19 Ang Hudson MD [address] [facility][1] [address] [place] [address] Vascular/Methods Analyst INTERNAL MEDICINE 01/05/20 Matteo Denise MD [address] [place] [address] Consulting Physician ORTHOPAEDIC SURGERY 07/06/23 Jonelle Deluna MD [address] [place] [address] COLON/RECTAL SURGERY 10/06/23 Houston Beaver MD [address] [place] [address] Consulting Physician INTERVENTIONAL CARDIOLOGY 05/25/24 documented as of this encounter
--- OUTSIDE RECORDS SUMMARY | 2024-08-09 10:08 | XMS_ITS | Encounter Summary ---
Author Organization [facility] Healthcare Address [facility] [place] [address] Care Team Providers Care Music Library Assistant Name Role Phone Giuseppe Kulkarni MD Primary Care Provider Timbo Cardoso MD Unavailable Mike Ledezma MD PhD Unavailable [phone] Esdras Conway MD Unavailable [phone] Kaiden Marshall DO Primary Care Provider Edelmira Alexandre NP Unavailable [phone] Jonelle Deluna MD Unavailable [phone] Gilmer Menezes MD Unavailable [phone] Encounter Details Date Type Department Care Team (Late st Contact Info) Description 07/04/2020 Telephone [facility] [address] [place] [address] Jonelle Benitez, RT Social History Tobacco Use Types Packs/Day Years Used Date Smoking Tobacco: Never Smokeless Tobacco: Never Alcohol Use Standard Drinks/Week Comments Yes 0 (1 standard drink = 0.6 oz pur e alcohol) very rare wine Sex and Gender Information Value Date Recorded Sex Assigned at Not on file Legal Sex Male 3:59 PM SUPPORT ASSISTANT Gender Identity Male 01/29/2021 1:19 PM CDT Sexual Orientation Not on file documented as of this encounter Plan of Treatment Not on file documented as of this encounter Visit Diagnoses Not on filedocumented in this encounter Care Teams Music Library Assistant Relationship Specialty Start Date End Date Giuseppe Kulkarni MD PCP - General Family Medicine 03/20/20 10/09/21 Rolando Kaidenkatie PradohDO [address] [place] [address] PCP - General Family Medicine 10/10/21 Timbo Cardoso MD Consulting Physician Neurology 10/18/20 Mike Ledezma MD PhD [address] [place] [address] Radiation Oncologist Radiation Oncology 02/21/21 Esdras Conway MD [address] [place] [address] Referring Physician Urology 02/21/21 04/20/24 Edelmira Alexandre NP [address] [place] [address] Registered Nurse Family Medicine 09/08/23 Jonelle Deluna MD [facility] [address] [facility] [phone] [place] [address] Surgeon Colon and Rectal Surgery 09/29/23 [place] [address] [place] [address] [address] [place] [address] Medical Oncologist/Absorption Plant Operator Helper Medical Oncology 11/24/23 documented as of this encounter
--- OUTSIDE RECORDS SUMMARY | 2024-08-09 10:08 | XMS_ITS | Encounter Summary ---
Author Organization [facility] Address [address] [place] [address] Care Team Providers Care Deployment Manager Name Role Phone Chintan Spears MD Unavailable Unavailabl Angela Hoffmann [facility] Unavailable [phone] Cabrera Crouch MD Unavailable [phone] Teresa Morin APRN MEDICAL RESEARCHER-C Unavailable Ang Hudson MD Unavailable Kaiden Marshall DO Primary Care Provider [phone] Kaiden Marshall DO Primary Care Provider [phone] Matteo Denise MD Unavailable [phone] Jonelle Deluna MD Unavailable [phone] Houston Beaver MD Unavailable [phone] Encounter Details Date Type Department Care Team (Late st Contact Info) Description 01/15/2022 Hospital Follow-up Call [facility] [address] [place] [address] Lola Barillas, RN Social History Tobacco Use Types Packs/Day Years Used Date Smoking Tobacco: Never Smokeless Tobacco: Never Alcohol Use Standard Drinks/Week Comments Yes 0 (1 standard drink = 0.6 oz pur e alcohol) rarely Sex and Gender Information Value Date Recorded Sex Assigned at Male 05/25/2024 9:04 AM STEEL RULE DIE MAKER APPRENTICE Legal Sex Male 9:59 PM CDT Gender Identity Not on file Sexual Orientation Not on file Occupation Industry Job Start Date Job End Date Retired Not on file Not on file Not on file COVID-19 Exposure Response Date Recorded In the last 10 days, have yo u been in contact with someone who was confirmed or suspected to have Coronavirus/COVID-19? No / Unsure 01/14/2022 7:33 AM CDT documented as of this encounter [...] Info) Description 12/27/2024 9:30 AM CDT Appointment [facility] [address] [place] [address] Ang Hudson MD [address] [facility], [address] [place] [address] 12/27/2024 10:00 AM CDT Office Visit [facility] [place] [phone] Ang Hudson MD [address] [facility] [address] [place] [address] 06/02/2025 10:00 AM STEEL RULE DIE MAKER APPRENTICE Office Visit [facility] [address] [place] [address] Teresa Morin APRN, MEDICAL RESEARCHER-C [address] [facility] [place] [place] [address] [place] [address] documented as of this encounter Goals Goal Patient Goal Type Associated Problems Recent Progress Patient-Stated? Author Safety Patient/family will have appropriate support at home upon discharge General Mikaela iMramontes, RN Patient will return to prior living situation and remain independent in ADLs upon discharge from hospital Lifestyle No Nelida Muniz RN documented as of this encounter Visit Diagnoses Not on filedocumented in this encounter Care Teams Deployment Manager Relationship Specialty Start Date End Date Kaiden Marshall DO [address] [place] [address] PCP - General FAMILY PRACTICE 10/15/21 11/11/22 Kaiden Marshall DO [address] [place] [address] PCP - General FAMILY PRACTICE 11/12/22 Chintan Spears MD [place] [employer] Combat Skills CARDIOVASCULAR DISEASE 01/03/16 12/20/23 Angela Miramontes AGACNP- [address] [id number] NURSE PRACTITIONER 07/07/19 07/05/23 Cabrera Crouch MD [address] [address] CARDIOTHORACIC SURGERY 10/26/19 4 Teresa Morin APRN, MEDICAL RESEARCHER-C [address] [facility] [address] [place] [address] NURSE PRACTITIONER 12/01/19 Ang Hudson MD [address] [facility] [address] [place] [address] Vascular/Exp[employer]ary Force Combat Skills INTERNAL MEDICINE 01/05/20 Matteo Denise MD [address] [place] [address] Consulting Physician ORTHOPAEDIC SURGERY 07/06/23 Jonelle Deluna MD [address] [place] [address] COLON/RECTAL SURGERY 10/06/23 Houston Beaver MD [address] [place] [address] Consulting Physician INTERVENTIONAL CARDIOLOGY 05/25/24 documented as of this encounter
--- OUTSIDE RECORDS SUMMARY | 2024-08-09 10:08 | XMS_ITS | Encounter Summary ---
Author Organization [facility] Address [address] [place] [address] Care Team Providers Care Layout Man Name Role Phone Chintan Spears MD Unavailable Unavailabl Angela Hoffmann [facility] Unavailable [phone] Cabrera Crouch MD Unavailable [phone] Teresa Morin APRN TELEGRAPH REPEATER MECHANIC-C Unavailable Ang Hudson MD Unavailable Kaiden Marshall DO Primary Care Provider Matteo Denise MD Unavailable [phone] Jonelle Deluna MD Unavailable [phone] Houston Beaver MD Unavailable Encounter Details Date Type Department Care Team (Late st Contact Info) Description 12/29/2022 Abstract [facility] [address] [place] [address] Chintan Spears MD Social History Tobacco Use Types Packs/Day Years Used Date Smoking Tobacco: Never Smokeless Tobacco: Never Tobacco Cessation:Counseling Given: Not Answered Alcohol Use Standard Drinks/Week Comments Yes 0 (1 standard drink = 0.6 oz pur e alcohol) rarely Sex and Gender Information Value Date Recorded Sex Assigned at Male 05/25/2024 9:04 AM BRINE TANK OPERATOR Legal Sex Male 9:59 PM CDT Gender Identity Not on file Sexual Orientation Not on file Occupation Industry Job Start Date Job End Date Retired Not on file Not on file Not on file documented as of this encounter Functional Status [...] Info) Description 12/27/2024 9:30 AM CDT Appointment [facility] [address] [place] [address] Ang Hudson MD [address] [facility], [address] [place] [address] 12/27/2024 10:00 AM CDT Office Visit [facility] [address] [place] [address] Ang Hudson MD [address] [facility], [address] [place] [address] 06/02/2025 10:00 AM BRINE TANK OPERATOR [facility] [address] [place] [address] Teresa Morin APRN, TELEGRAPH REPEATER MECHANIC-C [address] [phone] documented as of this encounter Goals Goal [...] on filedocumented in this encounter Care Teams Layout Man Relationship Specialty Start Date End Date Kaiden Marshall DO [address] [place] [address] PCP - General FAMILY PRACTICE 11/12/22 Chintan Spears MD [employer] Thread Cutter CARDIOVASCULAR DISEASE 01/03/16 12/20/23 Angela Miramontes [facility] [address] [address] NURSE PRACTITIONER 07/07/19 07/05/23 Cabrera Crouch MD [address] [address] CARDIOTHORACIC SURGERY 10/26/19 4 Teresa Morin APRN, TELEGRAPH REPEATER MECHANIC-C [address] [phone] NURSE PRACTITIONER 12/01/19 Ang Hudson MD [address] [address] Vascular/Thread Cutter INTERNAL MEDICINE 01/05/20 Matteo Denise MD [address] [place] [address] Consulting Physician ORTHOPAEDIC SURGERY 07/06/23 Jonelle Deluna MD [address] [place] [address] COLON/RECTAL SURGERY 10/06/23 Houston Beaver MD [address] [place] [address] Consulting Physician INTERVENTIONAL CARDIOLOGY 05/25/24 documented as of this encounter
--- OUTSIDE RECORDS SUMMARY | 2024-08-09 10:08 | XMS_ITS | Clinical Summary ---
Author Organization [facility] Address [address] [place] [address] Care Team Providers Care Tie Presser Name Role Phone Teresa Morin APRN, NP-C Unavailable [phone] Ang Hudson MD Unavailable Kaiden Marshall DO Primary Care Provider [phone] Matteo Denise MD Unavailable [phone] Jonelle Deluna MD Unavailable [phone] Houston Beaver MD Unavailable [phone] Allergies No known active allergies Medications atorvastatin 80 MG tabletIndication s:cholesterol Take 1 tablet (80 mg total) by mouth nightly at bedtime. Indications: cholesterol 2 Active fluticasone propionate 50 MCG/ACT nasal sprayIndications :nasal congestion 1 spray by Each Nostril route as needed. Indications: nasal congestion 0 Active apixaban 5 MG tablet Take 1 tablet (5 mg total) by mouth 2 (two) times daily. 60 tablet 0 Active metFORMIN ER 500 MG 24 hr tablet Take 1 tablet (500 mg total) by mouth daily. 1 Active loratadine 10 MG tablet Take 1 tablet (10 mg total) by mouth daily. Active famotidine (PEPCID) 40 MG tablet Take 1 tablet (40 mg total) by mouth daily. Active docusate sodium (COLACE) 100 MG capsule Take 1 capsule (100 mg total) by mouth daily. 2 Active rOPINIRole (REQUIP) 1 MG tablet Take by mouth 2 (two) times daily. 1mg at noon and 2mg at bedtime 3 Active diphenhydrAMINE- APAP (TYLENOL PM) 25-500 MG Tab tablet Take 1 tablet by mouth nightly at bedtime. Active Magnesium 500 MG Cap Take 1 capsule by mouth daily. 3 Active FARXIGA 10 MG tablet Take 1 tablet (10 mg total) by mouth daily. 4 Active nitroglycerin (NITROSTAT) 0.4 MG SL tabletIndication s:chest pain Place 1 tablet (0.4 mg total) under the tongue every 5 (five) minutes as needed for Chest Pain. Indications: chest pain 25 tablet 1 4 Active pantoprazole EC (PROTONIX) 40 MG tablet take 1 tablet by mouth every day at night 90 tablet 3 4 Active irbesartan (AVAPRO) 300 MG tablet TAKE 0.5 TABLETS (150 MG TOTAL) BY MOUTH 2 (TWO) TIMES DAILY. 90 tablet 3 4 Active aspirin 81 MG chewable tablet Chew 1 tablet (81 mg total) by mouth daily. Active isosorbide mononitrate ER (IMDUR) 60 MG 24 hr tablet Take 1 tablet (60 mg total) by mouth daily. 90 tablet 3 4 Active amLODIPine (NORVASC) 2.5 MG tablet Take 1 tablet (2.5 mg total) by mouth 2 (two) times daily. 180 tablet 2 4 Active chlorthalidone (HYGROTEN) 25 MG tablet TAKE 1 TABLET (25 MG TOTAL) BY MOUTH DAILY. 90 tablet 2 5 Active Active Problems Problem Noted Date Diagnosed Date S/p bilateral carotid endarterectomy 10/05/2023 Coronary artery disease invo lving north fork coronary artery of north fork heart 05/02/2023 Iron deficiency anemia 05/12/2022 Ectopic atrial rhythm 01/11/2022 Premature ventricular contractions (PVCs) (VPCs) 01/11/2022 Nonsustained ventricular tachycardia (CMS/HCC HH S/HCC) 01/11/2022 AV block 01/11/2022 Carotid artery stenosis 11/14/2021 Longstanding persistent atri al fibrillation (CMS/HCC [facility]) 11/04/2021 Symptomatic bradycardia 11/04/2021 On continuous oral anticoagulation 11/04/2021 Exercise intolerance 11/04/2021 Edema of left lower extremity 11/04/2021 Hx of CABG 11/04/2021 Dyspnea on exertion 11/04/2021 Chronic fatigue 11/04/2021 Hx pulmonary embolism 11/04/2021 Episodic lightheadedness 11/04/2021 Elevated PSA 04/20/2020 Overview (05/15/2020): Added automatically from request for surgery [id number] Leg edema 02/28/2020 History of DVT (deep vein thrombosis) 01/10/2020 Atrial fibrillation ([facility]) 11/10/2019 History of pulmonary embolus (PE) 07/26/2019 Acute pulmonary embolism ([facility]) 07/25 Carotid artery stenosis without cerebral infarct ion 06/22/2019 Assessment & Plan (01/24/2022 1:21 PM CDT): Gideon Thorpe remains stable with regard to his carotid artery stenosis. He is asymptomatic from a neurologic standpoint. Carotid duplex performed in our vascular lab today demonstrates a patent right internal carotid artery and a 60-79% stenosis in the left internal carotid artery with increased flow velocities - recommend carotid angiogram to define carotid anatomy and degree of stenosis. The signs of TIA and stroke were reviewed. He will seek immediate medical attention should he develop any neurologic symptoms. Continue guideline directed medical therapy, engaging in daily physical activity, aiming for a goal of at least 30 minutes of dedicated exercise each day to attain a health BMI, avoiding added sodium in the diet, managing blood sugars with a goal hemoglobin A1C less than 7%, managing blood pressure with a goal blood pressure of less than 130/80 mmHg and managing high cholesterol with a goal LDL cholesterol of less than 70 mg/dL. Assessment & Plan (04/16/2021 3:05 PM IGNITER CAPPER): Gideon Thorpe remains stable with regard to his carotid artery stenosis. He is asymptomatic from a neurologic standpoint. Carotid duplex performed in our vascular lab today demonstrates a patent right internal carotid artery s/p endarterectomy and a 60-79% stenosis in the left internal carotid artery (PSV 144 cm/s, EDV 36 cm/s, Ratio 1.12). There is a bunny ear sign in the right vertebral artery suggestive of pre-subclavian steal syndrome and ipsilateral SCA stenosis. Mr. Thorpe has a palpable right radial pulse and denies arm claudication symptoms. Recommend continuing surveillance with repeat carotid duplex in 6 months. The signs of TIA and stroke were reviewed. He will seek immediate medical attention should he develop any neurologic symptoms. I counseled him on the signs of arm claudication and he will call with any new symptoms. Continue guideline directed medical therapy, engaging in daily physical activity, aiming for a goal of at least 30 minutes of dedicated exercise each day to attain a health BMI, avoiding added sodium in the diet, managing blood sugars with a goal hemoglobin A1C less than 7%, managing blood pressure with a goal blood pressure of less than 130/80 mmHg and managing high cholesterol with a goal LDL cholesterol of less than 70 mg/dL. Trigger ring finger of left hand 02/15/2019 Tendinitis of right rotator cuff 07/09/2018 Shoulder pain, right 07/06/2018 Essential (primary) hypertension 08/22/2016 S/P coronary artery stent placement 01/07/2016 Mixed hyperlipidemia 01/07/2016 Type 2 diabetes mellitus ([facility]) 01/06 Pulmonary hypertension ([facility]) 016 Cor pulmonale ([facility]) 05/16/2015 SOB (shortness of breath) 11/21/2014 JOSE R (obstructive sleep apnea) 11/14/2014 DVT of lower extremity, bilateral ([facility] HHS/H CC) Pulmonary embolism ([facility]) Resolved Problems Problem Noted Date Diagnosed Date Resolved Date Afib ([facility]) 01/07/202201/08 Coronary artery disease invo lving north fork coronary artery of north fork heart with unstable angina pectoris ([facility]) 01/07/2016 05/02/2023 Encounter for preventive health examination 10/31/2014 05/21/2020 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 08/12/2021 Encounters Date Type Department Care Team Description 07/27/2024 9:42 AM CDT - 07/27/2024 11:59 PM CDT Hospital Encounter [facility] [address] [place] [address] Bryanna Hall NP Discharge Disposition: Home or Self Care (Routine Discharge) 07/27/2024 Orders Only [facility] [place] [address] Bryanna Hall NP 07/27/2024 Travel 05/27/2024 Abstract [facility] [address] [place] [address] Abstract, Doc Pccl 05/25/2024 9:30 AM IGNITER CAPPER Office Visit [facility] [address] [place] [address] Houston Beaver MD Follow Up 05/25/2024 Telephone [facility] [address] [place] [address] Houston Beaver MD Lab Results 05/25/2024 Travel from Last 3 Months Immunizations Name Administration Dates Next Due Influenza Adult (Generic) 02/12/2021,02/28/2020 Pneumovax 11/23/2019 Family History Medical History Relation Comments Coronary artery disease Father Positive for coronary artery disease Coronary artery disease Mother Positive for coronary artery disease Relation Status Comments Father Maternal Grandfather Maternal Grandmother Mother Paternal Grandfather Paternal Grandmother Social History Tobacco Use Types Packs/Day Years Used Date Smoking Tobacco: Never Smokeless Tobacco: Never Tobacco Cessation:Counseling Given: Not Answered Alcohol Use Standard Drinks/Week Comments Yes 0 (1 standard drink = 0.6 oz pur e alcohol) rarely Sex and Gender Information Value Date Recorded Sex Assigned at Male 05/25/2024 9:04 AM IGNITER CAPPER Legal Sex Male 9:59 PM CDT Gender Identity Not on file Sexual Orientation Not on file Occupation Industry Job Start Date Job End Date Retired Not on file Not on file Not on file Last Filed Vital Signs Vital Sign Reading Time Taken Comments Blood Pressure 122/64 05/25/2024 9:20 AM IGNITER CAPPER Pulse 87 05/25/2024 9:20 AM IGNITER CAPPER Temperature 36 C (96.8 F) 12/16/2023 8:20 AM CDT Respiratory Rate 18 05/25/2024 9:20 AM IGNITER CAPPER Oxygen Saturation 97% 05/25/2024 9:20 AM IGNITER CAPPER Inhaled Oxygen Concentration - - Weight 96.1 kg (211 lb 12.8 oz) 05/25/2024 9:20 AM IGNITER CAPPER Height 177.8 cm (5' 10 ) 05/25/2024 9:20 AM IGNITER CAPPER Body Mass Index 30.39 05/25/2024 9:20 AM IGNITER CAPPER Plan of Treatment Upcoming Encounters Date Type Department Care Team (Late st Contact Info) Description 12/27/2024 9:30 AM CDT Appointment [facility] [place] [address] Ang Hudson MD [address] [facility], [address] [place] [address] 12/27/2024 10:00 AM CDT Office Visit [facility] [place] [address] Ang Hudson MD [address] [facility], [address] [place] [address] 06/02/2025 10:00 AM IGNITER CAPPER Office Visit [facility] [address] [place] [address] Teresa Morin, SENIOR CORPORATE STRATEGY MANAGER, FUSING FURNACE LOADER-C [address] [facility] [address] [place] [address] Health Maintenance Due Date Last Done Comments ASCVD Statin 1948 Kidney Health Evaluation 1948 Diabetes: Retinopathy Eye Exam 1966 Hepatitis C 1966 DTaP, Tdap and Td Vaccines (1 - Tdap) 12/19/1967 Zoster Vaccines (1 of 2) 1998 Annual Medicare Wellness Visit 2013 Pneumococcal Vaccine: 65+ Years (2 of 2 - PCV) 11/22/2020 11/23/2019, 10/18/2019, 1950 RSV Immunization or 60+ Years (1 - 1-dose 75+ series) 12/19/2023 COVID-19 Vaccine ( season) 2024 02/19/2021, 07/06/2020, 06/15/2020 Influenza Adult (#1) 2024 02/12/2021, 02/28/2020, 02/08/2015 Hemoglobin A1C 09/07/2024 03/09/2024, 07/0 01/2024, 04/04/2020, Additional history exists Lipid Panel 03/09/2025 03/09/2024, 12/09, 02/20/2021, Additional history exists AAA SCREENING Completed 06/28/2024, 06/11, 02/02/2024, Additional history exists Meningococcal B Vaccine Aged Out No l onger eligible based on patient's age to complete this topic Meningococcal Vaccine Aged Out No ade marcelo eligible based on patient's age to complete this topic RSV Immunizations Under 20 Months Aged Out No longer eligible based on patient's age to complete this topic Goals Goal Patient Goal Type Associated Problems Recent Progress Patient-Stated? Author Safety Patient/family will have appropriate support at home upon discharge General No Mikaela Jiang RN Patient will return to prior living situation and remain independent in ADLs upon discharge from hospital Lifestyle No Nelida Muniz RN Medical Devices Implanted Type Area Trip Rider Device Identifier Shelf Expiration Date Model / Serial / Lot Graft Patch Hemashield [place] 0.8cmx7.6cm - [id number] Implanted:Qty: 1 on 11/14/2021 by Cabrera Crouch MD at [facility] Graft Left: Carotid [employer] [id number] 06/10/2024 [id number] / [id number] Ashley Xact Carotid Stent- 0 Implanted:06/11 by John Zhang MD (Quantity not on file) Stent Carotid ASHLEY [employer] 04/09/2020 [id number] / / [id number] Cv Orsio Svg-Rca Stent- 0 Implanted:Qty: 1 on 11/23/2019 by Nicolás Serrano MD Stent Coronary BIOTRONIK 01/16/2021 [id number] / / [id number] Cv Orsio Svg-Rca Stent- 0 Implanted:11/08 by Nicolás Serrano MD (Quantity not on file) Stent Coronary BIOTRONIK 01/09/2021 [id number] / / [id number] Cv Synergy Chandana Svg-Rca Stent- 1 Implanted:Qty: 1 on 08/03/2020 by Skyler Ramirez MD Stent Coronary MANGO BCN TAISHA 03/06/2022 [id number] / / [id number] Cv Xience Skypoint 3.5x28 Chandana Svg-Rca- 023 Implanted:Qty: 1 on 11/17/2022 by Cabrera Jacobs MD Stent [employer] 08/23/2023 [id number] 0- / Graft Patch Hemashield [place] 0.8cmx7.6cm - [id number] Implanted:Qty: 1 on 06/22/2019 by Cabrera Crouch MD at [facility] Right: Neck Manipal [employer] 09/08/2023 [id number] / / [id number] Description:Sewn in graft wi th prolene. Explanted Type Area Trip Rider Device Identifier Shelf Expiration Date Model / Serial / Lot Cv-Ivc Filter Explanted:Qty: 1 on 12/27/2019 by John Zhang MD Filter Inferior Vena Cava Description:IVC Filter Remov ed Procedures Procedure Name Priority Date/Time Associated Diagnosis Comments TESTOSTERONE, TOTAL Routine 07/27/2024 9 :52 AM CDT Malignant neoplasm of prostate (CMS/HCC HHS/HCC) PROSTATE SPECIFIC ANTIGEN,TOTAL Routine 07/27/2024 9:52 AM CDT Malignant neoplasm of prostate (CMS/HCC HHS/HCC) LIPID PANEL Routine 03/09/2024 HEMOGLOBIN, GLYCOSYLATED Routine 03/09/2024 CTA ABD+PEL STAT 08/01/2019 8:46 PM CDT from Last 3 Months or Most Recently Relevant to Health Maintenance Results * PROSTATE SPECIFIC ANTIGEN, DIAG (07/27/2024 9:52 AM CDT) PSA 1.65 <4.00 NG/ML 07/27/2024 10:42 AM CDT [facility] Comment: ASSAY PERFORMED BY [employer]UNO[employer]SAY METHODOLOGY USING SIEMENS DIMENSION REAGENT. PATIENT RESULTS DETERMINED BY ASSAYS FROM DIFFERENT MANUFACTURERS AND/OR BY DIFFERENT METHODS MAY NOT BE COMPARABLE. 07/27/2024 9:52 AM CDT Bryanna Hall NP LABORATORY Final Result [facility] [address] [employer] [place] [id number], * TESTOSTERONE, TOTAL (07/27/2024 9:52 AM CDT) TESTOSTERONE TOTAL 256 250 - 1,100 ng/dL 08/01/2024 12:19 AM CDT [facility] Comment: Men with clinically significant hypogonadal symptoms and testosterone values repeatedly in the range of the 200-300 ng/dL or less, may benefit from testosterone treatment after adequate risk and benefits counseling. For additional information, please refer to http://education.PrepChamps.Fengguo/faq/ [email or web address] (This link is being provided for informational/ educational purposes only.) This test was developed and its analytical performance characteristics have been determined by [employer] [facility] [place], [place]. It has not been cleared or approved by the U.S. Food and Drug Administration. This assay has been validated pursuant to the CLIA regulations and is used for clinical purposes. Test Performed by [facility] [employer] [place], [address] [place], [place] Antwan Roca M.D., Ph.D., Director of Laboratories , CLIA [id number] 07/27/2024 9:52 AM CDT us Bryanna Hall FUSING FURNACE LOADER LABORATORY Final Result [facility] [address] [place] [address], [place] [phone] * HEMOGLOBIN, GLYCOSYLATED (03/09/2024) HGB A1C 7.4 % Narrative Resulting Agency Comment [facility] us Default History Genericprovider LABORATORY Final Result * LIPID PANEL (03/09/2024) CHOLESTEROL 140 TRIGLYCERIDES 106 HDL 54 LDL (CALCULATED) 65 Narrative Resulting Agency Comment [facility] us Default History Genericprovider LABORATORY Final Result from Last 3 Months or Most Recently Relevant to Health Maintenance Insurance [facility] MEDICARE Advance Directives * Full Code (Latest Code Status on File) Date Activated Date Inactivated Comments 01/10/2022 1:59 PM 01/11/2022 1:57 PM * Full Code Date Activated Date Inactivated Comments 01/07/2022 3:29 PM 01/10/2022 1:59 PM * Full Code Date Activated Date Inactivated Comments 11/14/2021 10:11 AM 11/15/2021 4:41 PM * Full Code Date Activated Date Inactivated Comments 10/11/2021 3:58 PM 10/11/2021 6:01 PM * Full Code Date Activated Date Inactivated Comments 08/03/2020 10:34 AM 08/03/2020 6:50 PM Care Teams Tie Presser Relationship Specialty Start Date End Date Kaiden Marshall DO [address] [place] [address] PCP - General FAMILY PRACTICE 11/12/22 Teresa Morin APRN, FUSING FURNACE LOADER-C [address] [id number] NURSE PRACTITIONER 12/01/19 Ang Hudson MD [address] [address] Vascular/Pick Up Worker INTERNAL MEDICINE 01/05/20 [place] [address] [place] [id number] Consulting Physician ORTHOPAEDIC SURGERY 07/06/23 Jonelle Deluna MD [address] [place] [address] COLON/RECTAL SURGERY 10/06/23 Houston Beaver MD [address] [place] [address] Consulting Physician INTERVENTIONAL CARDIOLOGY 05/25/24
--- OUTSIDE RECORDS SUMMARY | 2024-08-09 10:08 | XMS_ITS | Encounter Summary ---
Author Organization [facility] Address [address] [place] [address] Care Team Providers Care Natural Gas Plant Supervisor Name Role Phone Rita Lee MD Primary Care Provider Chintan Martinez MD Unavailable Unavailabl Pérez Ambrocio MD Primary Care Provider [phone] Giuseppe Kulkarni MD Primary Care Provider Angela Miramontes [facility] Unavailable [phone] Cabrera Crouch MD Unavailable [phone] Teresa Morin APRN ROLLER SHOP SUPERVISOR-C Unavailable Agn Hudson MD Unavailable Kaiden Marshall DO Primary Care Provider [phone] Kaiden Marshall DO Primary Care Provider [phone] Matteo Denise MD Unavailable [phone] Jonelle Deluna MD Unavailable [phone] Houston Beaver MD Unavailable [phone] Encounter Details Date Type Department Care Team (Late st Contact Info) Description 10/19/2014 Abstract [facility] [address] [place] [address] Chintan Spears MD Social History Tobacco Use Types Packs/Day Years Used Date Smoking Tobacco: Never Alcohol Use Standard Drinks/Week Comments Yes 0 (1 standard drink = 0.6 oz pur e alcohol) Occasionally Sex and Gender Information Value Date Recorded Sex Assigned at Male 05/25/2024 9:04 AM STRETCHER LEVELER OPERATOR HELPER Legal Sex Male 9:59 PM CDT Gender Identity Not on file Sexual Orientation Not on file Occupation Industry Job Start Date Job End Date Retired Not on file Not on file Not on file documented as of this encounter Plan of Treatment Upcoming Encounters Date Type Department Care Team (Late st Contact Info) Description 12/27/2024 9:30 AM CDT Appointment [place] [id number] [facility] [place] [address] Ang Hudson MD [address] [facility], [address] [place] [address] 12/27/2024 10:00 AM CDT Office Visit [facility] [id number] [facility] [address] Ang Hudson MD [address] [facility], [address] [place] [address] 06/02/2025 10:00 AM STRETCHER LEVELER OPERATOR HELPER Office Visit [facility] [address] [place] [address] Teresa Morin, TRANSLATOR, ROLLER SHOP SUPERVISOR-C [address] [facility] [address] [place] [address] documented as of this encounter Visit Diagnoses Not on filedocumented in this encounter Additional Health Concerns Infection Onset Date Last Indicated Resolved Time COVID-19 Rule Out 11/19/2019 11/19/2019 11/20/2019 10:43 PM CDT COVID-19 Rule Out 12/24/2019 12/24/2019 12/25/2019 12:13 PM CDT COVID-19 Rule Out 07/31/2020 07/31/2020 08/01/2020 7:36 PM CDT documented as of this encounter Care Teams Natural Gas Plant Supervisor Relationship Specialty Start Date End Date Rita Lee MD PCP - General SURGERY 01/03/16 11/15/18 Pérez Herr MD [address] [place] [address] PCP - General FAMILY PRACTICE 11/16/18 06/08/19 Giuseppe Kulkarni MD [address] [facility] [address] [place] [address] PCP - General FAMILY PRACTICE 06/09/19 10/14/21 Kaiden Marshall DO [address] [place] [address] PCP - General FAMILY PRACTICE 10/15/21 11/11/22 Kaiden Marshall DO [address] [place] [address] PCP - General FAMILY PRACTICE 11/12/22 Chintan Spears MD [place] [facility] CARDIOVASCULAR DISEASE 01/03/16 12/20/23 Angela Miramontes AGACNP- [address] [address] NURSE PRACTITIONER 07/07/19 07/05/23 Cabrera Crouch MD [address] [address] CARDIOTHORACIC SURGERY 10/26/19 4 Teresa Morin, TRANSLATOR, ROLLER SHOP SUPERVISOR-C [address] [facility] [address] [place] [address] NURSE PRACTITIONER 12/01/19 Ang Hudson MD [address] [facility] [address] [place] [phone] Vascular/Mental Health Specialist INTERNAL MEDICINE 01/05/20 Matteo Denise MD [address] [place] [address] Consulting Physician ORTHOPAEDIC SURGERY 07/06/23 Jonelle Deluna MD [address] [place] [address] COLON/RECTAL SURGERY 10/06/23 Houston Beaver MD [address] [place] [address] Consulting Physician INTERVENTIONAL CARDIOLOGY 05/25/24 documented as of this encounter
--- OUTSIDE RECORDS SUMMARY | 2024-08-09 10:08 | XMS_ITS | Encounter Summary ---
Author Organization [facility] Address [address] [place] [address] Care Team Providers Care Doctor Of Dental Surgery Name Role Phone Rita Lee MD Primary Care Provider Chintan Martinez MD Unavailable Unavailabl Pérez Ambrocio MD Primary Care Provider [phone] Giuseppe Kulkarni MD Primary Care Provider Angela Miramontes [facility] Unavailable [phone] Cabrera Crouch MD Unavailable [phone] Teresa Morin APRN, AMMONIA OPERATOR-C Unavailable [phone] Ang Hudson MD Unavailable Kaiden Marshall DO Primary Care Provider [phone] Kaiden Marshall DO Primary Care Provider [phone] Matteo Denise MD Unavailable [phone] Jonelle Deluna MD Unavailable [phone] Houston Beaver MD Unavailable [phone] Encounter Details Date Type Department Care Team (Late st Contact Info) Description 07/25/2017 Abstract [facility] [address] [place], [place] [address] , Generic Conversion, Social History Tobacco Use Types Packs/Day Years Used Date Smoking Tobacco: Never Smokeless Tobacco: Never Alcohol Use Standard Drinks/Week Comments Yes 0 (1 standard drink = 0.6 oz pur e alcohol) Occasionally Sex and Gender Information Value Date Recorded Sex Assigned at Male 05/25/2024 9:04 AM ONLINE HEALTH AND FITNESS COACH Legal Sex Male 9:59 PM CDT Gender Identity Not on file Sexual Orientation Not on file Occupation Industry Job Start Date Job End Date Retired Not on file Not on file Not on file documented as of this encounter Plan of Treatment Upcoming Encounters Date Type Department Care Team (Late st Contact Info) Description 12/27/2024 9:30 AM CDT Appointment [address] [place] [address] Ang Hudson MD [address] [facility], [address] [place], [place] [address] 12/27/2024 10:00 AM CDT Office Visit [facility] [place] [phone] Ang Hudson MD [address] [facility], [address] [place] [address] 06/02/2025 10:00 AM ONLINE HEALTH AND FITNESS COACH Office Visit [facility] [place] [address] [place] [address] Teresa Morin, DEVELOPMENT REPRESENTATIVE, AMMONIA OPERATOR-C [address] [facility] [address] [place] [address] documented as of this encounter Visit Diagnoses Not on filedocumented in this encounter Additional Health Concerns Infection Onset Date Last Indicated Resolved Time COVID-19 Rule Out 11/19/2019 11/19/2019 11/20/2019 10:43 PM CDT COVID-19 Rule Out 12/24/2019 12/24/2019 12/25/2019 12:13 PM CDT COVID-19 Rule Out 07/31/2020 07/31/2020 08/01/2020 7:36 PM CDT documented as of this encounter Care Teams Doctor Of Dental Surgery Relationship Specialty Start Date End Date Rita Lee MD PCP - General SURGERY 01/03/16 11/15/18 Pérez Herr MD [address] [place] [address] PCP - General FAMILY PRACTICE 11/16/18 06/08/19 [place] [address] [place] [address] [address] [place] [address] PCP - General FAMILY PRACTICE 06/09/19 10/14/21 Kaiden Marshall DO [address] [place] [address] PCP - General FAMILY PRACTICE 10/15/21 11/11/22 Kaiden Marshall DO [address] [place] [address] PCP - General FAMILY PRACTICE 11/12/22 Chintan Spears MD [place] [employer] Energy Engineer CARDIOVASCULAR DISEASE 01/03/16 12/20/23 Angela Miramontes AGACNP-BC [address] [place] [address] NURSE PRACTITIONER 07/07/19 07/05/23 Cabrera Crouch MD [address] [place] [address] CARDIOTHORACIC SURGERY 10/26/19 4 Teresa Morin APRN, AMMONIA OPERATOR-C [address] [place] [address] [address] [place] [address] NURSE PRACTITIONER 12/01/19 Ang Hudson MD [address] [facility] [address] [place] [address] Vascular/Renewable Energy Engineer INTERNAL MEDICINE 01/05/20 Matteo Denise MD [address] [place] [address] Consulting Physician ORTHOPAEDIC SURGERY 07/06/23 Jonelle Deluna MD [address] [place] [address] COLON/RECTAL SURGERY 10/06/23 Houston Beaver MD [address] [place] [address] Consulting Physician INTERVENTIONAL CARDIOLOGY 05/25/24 documented as of this encounter
[2024-08-09 10:55] LABS: Alanine Aminotransferase 24 U/L (16-63); Albumin Level 3.5 g/dL (3.4-5.0); Alkaline Phosphatase 99 U/L (46-116); Anion Gap 13 mmol/L (4-12); Aspartate Amino Transferase 12 U/L (15-37); Bilirubin,Total 0.7 mg/dL (0.00-1.00); Blood Urea Nitrogen 18 mg/dL (7-18); CRP 1.9 mg/dL (0.0-0.9); Carbon Dioxide 25 mmol/L (21-32); Chloride 98 mmol/L (98-108); Estimated Glomerular Filt Rate 50; Glucose 236 mg/dL (70-99); Osmolality Calculated 291 mOsm/kg (285-295); Potassium 3.4 mmol/L (3.5-5.1); Sodium 136 mmol/L (136-145); Total Protein 6.2 g/dL (6.4-8.2)
[2024-08-09 16:38] LABS: Rheumatoid Factor Screen Negative (Negative)
== END 2024-08-09 09:29 | disposition home or self-care (01) ==
LOC: CHSLAB 09:29
PROVIDERS: PCP Family Medicine; Visit Provider Family Medicine
DX: C18.9 Malignant neoplasm of colon, unspecified (principal); I25.10 Atherosclerotic heart disease of native coronary artery without angina pectoris; H26.9 Unspecified cataract; M79.641 Pain in right hand; M79.642 Pain in left hand
CPT/HCPCS: 36415; 80053; 85025; 86140; 86430

== ENCOUNTER 2024-09-16 00:09 | Day surgery (SDC) | payer MEDICARE, SELFPAY ==
[2024-09-05 12:06] VITALS: BMI 30.9
--- NOTE | 2024-09-13 12:40 | SUR.PREOP ---
Updated patient on new date and time for procedure. He also confirmed that today 09/13/2024 is his last dose of Eliquis.
--- OUTSIDE RECORDS SUMMARY | 2024-09-16 00:11 | XMS_ITS | Encounter Summary ---
Author Organization [facility] Address [address] [place] [address] Care Team Providers Care Vanstone Machine Operator Name Role Phone Chintan Spears MD Unavailable [phone] Pérez Herr MD Primary Care Provider [phone] Giuseppe Kulkarni MD Primary Care Provider Angela Miramontes [facility] Unavailable [phone] Cabrera Crouch MD Unavailable [phone] Teresa Morin APRN, CERTIFIED PROSTHETIST/ORTHOTIST-C Unavailable Ang Hudson MD Unavailable Kaiden Marshall DO Primary Care Provider [phone] Kaiden Marshall DO Primary Care Provider [phone] Matteo Denise MD Unavailable [phone] Jonelle Deluna MD Unavailable [phone] Houston Beaver MD Unavailable [phone] Encounter Details Date Type Department Care Team (Late st Contact Info) Description 02/15/2019 [employer] [place] DEPARTMENT [facility] [place] [address] Gene, [facility] Provider Visit Follow Up Social History Tobacco Use Types Packs/Day Years Used Date Smoking Tobacco: Never Smokeless Tobacco: Never Alcohol Use Standard Drinks/Week Comments Yes 0 (1 standard drink = 0.6 oz pur e alcohol) Occasionally Sex and Gender Information Value Date Recorded Sex Assigned at Male 05/25/2024 9: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 TEACHER 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 DEVELOPMENT Legal Sex Male 9:59 PM CDT Gender Identity Not on file Sexual Orientation Not on file Occupation Industry Job Start Date Job End Date Retired Not on file Not on file Not on file documented as of this encounter Plan of Treatment Upcoming Encounters Date Type Department Care Team (Late st Contact Info) Description 10/05/2024 9:00 AM CDT Appointment [facility] [address] [place] [address] Teresa Morin APRN, CERTIFIED PROSTHETIST/ORTHOTIST-C [address] [phone] 12/27/2024 9:30 AM CDT Appointment [facility] [address] [place] [address] Ang Hudson MD [address] [facility], [address] [place] [address] 06/02/2025 10:00 AM TEACHER EARLY CHILDHOOD DEVELOPMENT [facility] [address] [place] [address] Teresa Morin APRN, CERTIFIED PROSTHETIST/ORTHOTIST-C [address] [phone] documented as of this encounter Visit Diagnoses Not on filedocumented in this encounter Additional Health Concerns Infection Onset Date Last Indicated Resolved Time COVID-19 Rule Out 11/19/2019 11/19/2019 11/20/2019 10:43 PM CDT COVID-19 Rule Out 12/24/2019 12/24/2019 12/25/2019 12:13 PM CDT COVID-19 Rule Out 07/31/2020 07/31/2020 08/01/2020 7:36 PM CDT documented as of this encounter Care Teams Vanstone Machine Operator Relationship Specialty Start Date End Date Pérez Herr MD [address] [place] [address] PCP - General FAMILY PRACTICE 11/16/18 06/08/19 Giuseppe Kulkarni MD [address] [facility] [address] [place] [address] PCP - General FAMILY PRACTICE 06/09/19 10/14/21 Kaiden Marshall DO [address] [place] [address] PCP - General FAMILY PRACTICE 10/15/21 11/11/22 Kaiden Marshall DO [address] [place] [address] PCP - General FAMILY PRACTICE 11/12/22 Chintan Spears MD [address] [place] [address] [place] Client Services Account Manager CARDIOVASCULAR DISEASE 01/03/16 12/20/23 Angela Miramontes AGACNP-BC [address] [address] NURSE PRACTITIONER 07/07/19 07/05/23 Cabrera Crouch MD [address] [address] CARDIOTHORACIC SURGERY 10/26/19 4 Teresa Morin APRN, CERTIFIED PROSTHETIST/ORTHOTIST-C [address] [facility] [address] [place] [address] NURSE PRACTITIONER 12/01/19 Ang Hudson MD [address] [facility] [address] [place] [address] Vascular/Client Services Account Manager INTERNAL MEDICINE 01/05/20 Matteo Denise MD [address] [place] [address] Consulting Physician ORTHOPAEDIC SURGERY 07/06/23 Jonelle Deluna MD [address] [place] [address] COLON/RECTAL SURGERY 10/06/23 [place] Beaver MD [address] [place] [address] Consulting Physician INTERVENTIONAL CARDIOLOGY 05/25/24 documented as of this encounter
--- OUTSIDE RECORDS SUMMARY | 2024-09-16 00:11 | XMS_ITS | Encounter Summary ---
Author Organization [facility] Address [address] [place] [address] Care Team Providers Care Product Safety Tester Name Role Phone Chintan Spears MD Unavailable [phone] Giuseppe Kulkarni MD Primary Care Provider Angela Miramontes AGACN- Unavailable [phone] Cabrera Crouch MD Unavailable [phone] Teresa Morin APRN, PATCH DRILLER-C Unavailable Ang Hudson MD Unavailable Kaiden Marshall DO Primary Care Provider [phone] Kaiden Marshall DO Primary Care Provider [phone] Matteo Denise MD Unavailable [phone] Jonelle Deluna MD Unavailable [phone] Houston Beaver MD Unavailable [phone] Encounter Details Date Type Department Care Team (Late st Contact Info) Description 08/09/2020 Abstract [facility] [address] [place] [address] Chintan Spears MD [address] [place] [address] Social History Tobacco Use Types Packs/Day Years Used Date Smoking Tobacco: Never Smokeless Tobacco: Never Alcohol Use Standard Drinks/Week Comments Yes 0 (1 standard drink = 0.6 oz pur e alcohol) rarely Sex and Gender Information Value Date Recorded Sex Assigned at Male 05/25/2024 9:04 AM 4TH GRADE MATH TEACHER Legal Sex Male 9:59 PM CDT [...] Info) Description 10/05/2024 9:[address] [facility] [address] [place] [address] Teresa Morin, STATION COOK, PATCH DRILLER-C [address] [facility] [address] [phone] 12/27/2024 9:[address] [facility] [address] [place] [address] Ang Hudson MD [address] [facility], [address] [place] [address] 06/02/2025 10:00 AM 4TH GRADE MATH TEACHER Office Visit [facility] [address] [place] [address] Teresa Morin, ALLY, PATCH DRILLER-C [address] [phone] documented as of this encounter Visit Diagnoses Not on filedocumented in this encounter Care Teams Product Safety Tester Relationship Specialty Start Date End Date Giuseppe Kulkarni MD [address] [facility] [address] [place] [address] PCP - General FAMILY PRACTICE 06/09/19 10/14/21 Kaiden Marshall DO [address] [place] [address] PCP - General FAMILY PRACTICE 10/15/21 11/11/22 Kaiden Marshall DO [address] [place] [address] PCP - General FAMILY PRACTICE 11/12/22 Chintan Spears MD [address] [place] [address] [place] Chief Diversity Officer CARDIOVASCULAR DISEASE 01/03/16 12/20/23 Angela Miramontes VIRIDIANA-BC [address] [address] NURSE PRACTITIONER 07/07/19 07/05/23 Cabrera Crouch MD [address] [phone] CARDIOTHORACIC SURGERY 10/26/19 4 Teresa Morin APRN, PATCH DRILLER-C [address] [facility] [address] [place] [address] NURSE PRACTITIONER 12/01/19 Ang Hudson MD [address] [facility] [address] [address] Vascular/Chief Diversity Officer INTERNAL MEDICINE 01/05/20 Matteo Denise MD [address] [place], [place] [phone] Consulting Physician ORTHOPAEDIC SURGERY 07/06/23 Jonelle Deluna MD [address] [place] [address] COLON/RECTAL SURGERY 10/06/23 [place] Beaver MD [address] [place] [address] Consulting Physician INTERVENTIONAL CARDIOLOGY 05/25/24 documented as of this encounter
--- OUTSIDE RECORDS SUMMARY | 2024-09-16 00:11 | XMS_ITS | Encounter Summary ---
Author Organization [facility] Address [address] [place] [address] Care Team Providers Care Embosser Operator Name Role Phone Chintan Spears MD Unavailable [phone] Giuseppe Kulkarni MD Primary Care Provider Angela Miramontes AGACN- Unavailable [phone] Cabrera Crouch MD Unavailable [phone] Teresa Morin APRN, MOVIE SHOT CAMERA OPERATOR-C Unavailable [phone] Ang Hudson MD Unavailable Kaiden Marshall DO Primary Care Provider [phone] Kaiden Marshall DO Primary Care Provider [phone] Matteo Denise MD Unavailable [phone] Jonelle Deluna MD Unavailable [phone] [place] Beaver MD Unavailable [phone] Encounter Details Date Type Department Care Team (Late st Contact Info) Description 10/02/2021 Pre-Procedure Call Elliott's Deburrer Strip Pre/Post [address] [place] [address] Chintan Spears MD [address] [place] [address] Social History Tobacco Use Types Packs/Day Years Used Date Smoking Tobacco: Never Smokeless Tobacco: Never Alcohol Use Standard Drinks/Week Comments Yes 0 (1 standard drink = 0.6 oz pur e alcohol) rarely Sex and Gender Information Value Date Recorded Sex Assigned at Male 05/25/2024 9:04 AM CIRCUIT TESTER Legal Sex Male 9:59 PM CDT Gender [...] Appointment [facility] [address] [place], [place] [address] Teresa Morin, TIRE FINISHER, MOVIE SHOT CAMERA OPERATOR-C [address] [facility] [address] [place] [address] 12/27/2024 9:30 AM CDT Appointment [facility] [address] [place] [address] Ang Hudson MD [address] [facility], [address] [place], [place] [address] 06/02/2025 10:00 AM CIRCUIT TESTER Office Visit [facility] [address] [place] [address] Teresa Morin APRN, MOVIE SHOT CAMERA OPERATOR-C [address] [phone] documented as of this encounter Visit Diagnoses Not on filedocumented in this encounter Care Teams Embosser Operator Relationship Specialty Start Date End Date Giuseppe Kulkarni MD [address] [facility] [address] [place] [address] PCP - General FAMILY PRACTICE 06/09/19 10/14/21 Kaiden Marshall DO [address] [place] [address] PCP - General FAMILY PRACTICE 10/15/21 11/11/22 Kaiden Marshall DO [address] [place] [address] PCP - General FAMILY PRACTICE 11/12/22 Chintan Spears MD [address] [place] [address] [place] Supervisor Powdered Sugar CARDIOVASCULAR DISEASE 01/03/16 12/20/23 Angela Miramontes AGACNP-BC [address] [address] NURSE PRACTITIONER 07/07/19 07/05/23 Cabrera Crouch MD [address] [address] CARDIOTHORACIC SURGERY 10/26/19 4 Teresa Morin, TIRE FINISHER, MOVIE SHOT CAMERA OPERATOR-C [address] [facility] [address] [place] [address] NURSE PRACTITIONER 12/01/19 Ang Hudson MD [address] [facility] [address] [address] Vascular/Supervisor Powdered Sugar INTERNAL MEDICINE 01/05/20 Matteo Denise MD [address] [place] [address] Consulting Physician ORTHOPAEDIC SURGERY 07/06/23 Jonelle Deluna MD [address] [place] [address] COLON/RECTAL SURGERY 10/06/23 [place] Beaver MD [address] [place] [address] Consulting Physician INTERVENTIONAL CARDIOLOGY 05/25/24 documented as of this encounter
--- OUTSIDE RECORDS SUMMARY | 2024-09-16 00:11 | XMS_ITS | Clinical Summary ---
Author Organization [facility] Address [address] [place] [address] Care Team Providers Care Java Software Name Role Phone Timbo Cardoso MD Unavailable Mike Ledezma MD PhD Unavailable [phone] Kaiden Marshall DO Primary Care Provider Edelmira Alexandre NP Unavailable [phone] Jonelle Deluna MD Unavailable [phone] Gilmer Menezes MD Unavailable [phone] Allergies No known active allergies Medications amLODIPine (NORVASC) 2.5 mg tablet Take 1 tablet (2.5 mg total) by mouth 2 (two) times a day 0 Active atorvastatin (LIPITOR) 80 mg tablet Take 1 tablet (80 mg total) by mouth nightly 0 Active chlorthalidone 25 mg tablet Take 1 tablet (25 mg total) by mouth every morning 0 Active irbesartan (AVAPRO) 300 mg tablet Take 0.5 tablets (150 mg total) by mouth 2 (two) times a day 0 Active nitroglycerin (NITROSTAT) 0.[address] 1 tablet (0.4 mg total) under the tongue every 5 (five) minutes as needed 0 Active diphenhydrAMINE-ac etaminophen (TYLENOL PM) 25-500 mg tablet Take 1 tablet by mouth nightly Active Eliquis 5 mg tabletIndications: VTE Prophylaxis,atrial fibrillation Take 1 tablet (5 mg total) by mouth 2 (two) times a day 1 Active magnesium gluconate (MAGONATE) 27.5 mg magne- [...] (500 mg total) by mouth every evening 4 Active acidophilus-pectin , citrus 100 million cell-10 mg capsule Take 1 tablet by mouth every morning Active dapagliflozin propanediol (FARXIGA) 10 mg tablet 1 tablet (10 mg total) Active aspirin 81 mg chewable tablet Take 1 tablet (81 mg total) by mouth daily Active isosorbide mononitrate ER (IMDUR) 60 mg 24 hr tablet Take 1 tablet (60 mg total) by mouth daily 4 Active olopatadine (PATANOL) 0.1 % ophthalmic solutionIndication s:Allergic Conjunctivitis Administer 1 drop into both eyes 2 (two) times a day 5 mL 2 4 Active gentamicin (GARAMYCIN) 0.3 % ophthalmic solution Administer 1 drop into both eyes daily 5 mL 3 4 Active prochlorperazine (Compazine) 10 mg tabletIndications: Malignant neoplasm of colon, unspecified part of colon (HCC) Take 1 tablet (10 mg total) by mouth every 6 (six) hours as needed for nausea or vomiting 30 tablet 3 4 Active fluticasone propionate (FLONASE) 50 mcg/actuation nasal spray ADMINISTER 1 SPRAY INTO EACH NOSTRIL DAILY NEEDED FOR RHINITIS OR ALLERGIES. 16 mL 1 5 Active Active Problems Problem Noted Date Diagnosed Date DVT of lower extremity, bilateral 03/07/2024 Iron deficiency anemia due to chronic blood loss 01/13/2024 Anemia 01/12/2024 Colon cancer 11/02/2023 Acute postoperative abdominal pain 11/02/2023 Coronary artery disease invo lving [place] coronary artery of [place] heart 05/02/2023 Iron deficiency anemia 05/12/2022 AV [...] (08/15/2020): Added automatically from request for surgery [id number] Assessment & Plan (02/12/2022 11:29 AM CDT): [...] (07/12/2020): Added automatically from request for surgery [id number] Rising PSA following treatme nt for malignant neoplasm of prostate 04/20/2020 Overview (04/20/2020): Added automatically from request for surgery [id number] Elevated PSA 04/20/2020 Overview (03/07/2024): Added automatically from request for surgery [id number] Edema of left lower extremity 02/28/2020 History [...] Encounters Date Type Department Care Team Description 08/18/2024 11:00 AM CDT Office Visit [facility] Radiation Oncology [address] [place] [phone] Bryanna Hall NP Prostate cancer (HCC) 08/09/2024 Telephone [facility] Oncology [address] [place] [address] Gilmer Menezes MD 08/01/2024 Telephone [facility] [address] [place] [address] Henrry Darby RN 07/27/2024 Orders Only [facility] [address] [place] [address] Bryanna Hall NP 07/08/2024 Telephone [facility] [address] [place] [address] Emily Lind MLT 07/07/2024 Orders Only [facility] [address] [place] [phone] Moraima Jacob RN Malignant neoplasm of colon, unspecified part of colon (HCC) (Primary Dx) 07/05/2024 12:00 PM INSOLE LIP TURNER Office Visit [facility] Phys[facility] Oncology [address] [place] [phone] Gilmer Menezes MD Malignant neoplasm of colon, unspecified part of colon (HCC) (Primary Dx) 07/05/2024 11:30 AM INSOLE LIP TURNER Clinical Support [facility] [address] [place] [address] Malignant neoplasm of colon, unspecified part of colon (HCC) 06/28/2024 11:27 AM INSOLE LIP TURNER - 06/28/2024 11:59 PM INSOLE LIP TURNER Hospital Encounter [facility] Medical Office Building [address] [place] [address] Malignant neoplasm of colon, unspecified part of colon (HCC) Discharge Disposition: Discharge to home or self care from Last 3 Months Surgical History Surgery Date Site/Laterality Comments CAROTID ENARTERECTOMYY 06/11/2019 - 07/09/2019 right (pt reports left is approx 70% blocked-monitoring) CARDIAC STENT PLACEMENT 11/09/2019 - 12/09/2019 Dr. Chintan Spears with [facility] in [place], [place] BACK SURGERY not a fusion/ for [...] on file Legal Sex Male 3:59 PM INSOLE LIP TURNER Gender Identity Male 01/29/2021 1:19 PM CDT Sexual Orientation Not on file Obstetrics History Last Filed Vital Signs Vital Sign Reading Time Taken Comments Blood Pressure 145/73 08/18/2024 11:19 AM CDT Pulse 67 08/18/2024 11:19 AM CDT Temperature 36.2 C (97.1 F) 08/18/2024 11:19 AM CDT Respiratory Rate 22 08/18/2024 11:19 AM CDT Oxygen Saturation 100% 08/18/2024 11:19 AM CDT Inhaled Oxygen Concentration - - Weight 97.1 kg (214 lb) 08/18/2024 11:19 AM CDT Height 174 cm (5' 8.5 ) 04/19/2024 10:48 AM INSOLE LIP TURNER Body Mass Index 32.07 04/19/2024 10:48 AM INSOLE LIP TURNER Plan of Treatment Health Maintenance Due Date [...] - PCV) 11/22/2020 11/23/2019, 10/18/2019 Covid-19 Vaccine ( - 2023-2 5 season) 2024 02/19/2021, 07/06/2020, 06/15/2020 Influenza Vaccine (Season Ended) 2025 02/12/2021, 02/11/2021, 02/28/2020 Lipid Panel 03/09/2025 03/09/2024, 12/09, 06/14/2019 Fall Risk Assessment 03/14/2025 03/14/2024, 07/24/2022, 03/26/2021 eGFR 07/05/2025 07/05/2024, 0208/2024, 05/31/2024, Additional history exists Medical Devices Implanted Type Area Environmental Services Manager Device Identifier Shelf Expiration Date Model / Serial / Lot Stents Implanted:Qty: 11 Bilateral: Heart Description:2005,2007,2008,2 014,2014,2019,2020 Stents and bypass 1992 [employer] Xcela Power Port 8fr [id number] - [id number] Implanted:Qty: 1 on 12/28/2023 at [facility] [employer] 06/20/2028 [id number] / / [id number] Explanted Type Area Environmental Services Manager Device Identifier Shelf Expiration Date Model / Serial / Lot [employer] Eloy 180-223 Contour 6fr 26cm Large Inner Lumen Low Profile Bladder Melvin Taper Latex Free - [id number] Implanted:Qty: 1 on 09/13/2020 by Esdras Conway MD at [facility] Explanted:Qty: 1 on 10/16/2020 at [facility] [employer] El[employer] 05/21/2023 180-223 / / [id number] Procedures Procedure Name Priority Date/Time Associated Diagnosis Comments PSA DIAGNOSTIC Routine 07/27/2024 2:53 PM CDT EGFR Routine 07/05/2024 11:40 AM INSOLE LIP TURNER Malignant neoplasm of colon, unspecified part of colon (HCC) MANUAL DIFFERENTIAL Routine 07/05/2024 1 1:40 AM INSOLE LIP TURNER Malignant neoplasm of colon, unspecified part of colon (HCC) DIFFERENTIAL AUTO Routine 07/05/2024 11: 40 AM INSOLE LIP TURNER Malignant neoplasm of colon, unspecified part of colon (HCC) CBC WITH AUTO DIFFERENTIAL Routine 07/05/2024 11:40 AM INSOLE LIP TURNER Malignant neoplasm of colon, unspecified part of colon (HCC) CEA Routine 07/05/2024 11:40 AM INSOLE LIP TURNER Malignant neoplasm of colon, unspecified part of colon (HCC) COMPREHENSIVE METABOLIC PANEL Routine 07/05/2024 11:40 AM INSOLE LIP TURNER Malignant neoplasm of colon, unspecified part of colon (HCC) FERRITIN Routine 07/05/2024 11:40 AM INSOLE LIP TURNER Malignant neoplasm of colon, unspecified part of colon (HCC) IRON PROFILE W/ IBC Routine 07/05/2024 1 1:40 AM INSOLE LIP TURNER Malignant neoplasm of colon, unspecified part of colon (HCC) CT CHEST ABDOMEN PELVIS W CONTRAST Schedule Routine, Read Routine (OP Routine) 06/28/2024 11:51 AM INSOLE LIP TURNER Malignant neoplasm of colon, unspecified part of colon (HCC) from Last 3 Months Results * PSA diagnostic (07/27/2024 2:53 PM CDT) Blood us Bryanna Hall TREAD CUTTER LAB BLOOD ORDERABLES Edited R esult - Final [facility] [address] [place] [address], [facility] * eGFR (07/05/2024 11:40 AM INSOLE LIP TURNER) eGFR 63 >=60 mL/min/1. 73 m2 Comment: [...] was last reviewed 2021. Testing performed by: [address] [address] Blood 07/05/2024 11:4 0 AM INSOLE LIP TURNER 07/05/2024 11:43 AM INSOLE LIP TURNER Gilmer Menezes MD LAB BLOOD ORDERABLES Final Result MEGAN [address] [facility] Department [place] [address] * Differential, auto (07/05/2024 11:40 AM INSOLE LIP TURNER) Neutrophil abs 3.6 1.5 - 6.5 K/cumm Comment:Testing performed by : [address] [address] Imm gran abs 0.0 0.0 - 0.1 K/cumm MEGAN Comment:Testing performed by : [address] [address] Lymphocyte abs 0.9 0.8 - 3.3 K/cumm MEGAN Comment:Testing performed by : [address] [address] Monocyte abs 0.6 0.2 - 0.8 K/cumm MEGAN Comment:Testing performed by : [address] [address] Eosinophil abs 0.0 0.0 - 0.5 K/cumm MEGAN Comment:Testing performed by : [address] [address] Basophil abs 0.0 0.0 - 0.1 K/cumm MEGAN Comment:Testing performed by : [address] [address] Neutrophil pct 69.2 % CERNICOLASA Comment: Interpretive Data Percent cell count reference ranges are not reported, since discordance with absolute values may lead to misinterpretation of CBC data. Current Interpretive Data was last revised on 2017. Testing performed by: [address] [address] Imm gran pct 0.2 % [facility] Comment: Interpretive Data Percent cell count reference ranges are not reported, since discordance with absolute values may lead to misinterpretation of CBC data. Current Interpretive Data was last revised on 2017. Testing performed by: [address] [address] Lymphocyte pct 17.7 % [facility] Comment: Interpretive Data Percent cell count reference ranges are not reported, since discordance with absolute values may lead to misinterpretation of CBC data. Current Interpretive Data was last revised on 2017. Testing performed by: [address] [address] Monocyte pct 11.9 % [facility] Comment: Interpretive Data Percent cell count reference ranges are not reported, since discordance with absolute values may lead to misinterpretation of CBC data. Current Interpretive Data was last revised on 2017. Testing performed by: [address] [address] Eosinophil pct 0.6 % [facility] Comment: Interpretive Data Percent cell count reference ranges are not reported, since discordance with absolute values may lead to misinterpretation of CBC data. Current Interpretive Data was last revised on 2017. Testing performed by: [address] [address] Basophil pct 0.4 % [facility] Comment: Interpretive Data Percent cell count reference ranges are not reported, since discordance with absolute values may lead to misinterpretation of CBC data. Current Interpretive Data was last revised on 2017. Testing performed by: [address] [address] Blood 07/05/2024 11:4 0 AM INSOLE LIP TURNER 07/05/2024 11:43 AM INSOLE LIP TURNER Gilmer Menezes MD LAB BLOOD ORDERABLES Final Result Performing Organization Address [facility] de Phone Number [address] [address] * Iron profile w/ IBC (07/05/2024 11:40 AM INSOLE LIP TURNER) Iron 72 50 - 150 mcg/dL Comment:Testing performed by : [address] [address] TIBC 314 250 - 400 mcg/dL MEGAN Comment:Testing performed by : [address] [address] Transferrin saturation 23 20 - 50 % MEGAN Comment:Testing performed by : [address] [address] Blood 07/05/2024 11:4 0 AM INSOLE LIP TURNER 07/05/2024 1:51 PM INSOLE LIP TURNER Gilmer Menezes MD LAB BLOOD ORDERABLES Final Result Performing Organization Address [facility] de Phone Number [address] [address] * (ABNORMAL) CBC with auto differential (07/05/2024 11:40 AM INSOLE LIP TURNER) WBC 5.2 3.8 - 9.9 K/cumm Comment:Testing performed by : [address] [address] Hgb 12.8(L) 13.0 - 17.5 g/dL MEGAN RIZO Comment:Testing performed by : [address] [address] Hct 37.0(L) 38.9 - 50.3 % MEGAN RIZO Comment:Testing performed by : [address] [address] Plt 143(L) 150 - 400 K/cumm MEGAN RIZO Comment:Testing performed by : [address] [address] MPV 9.6 9.1 - 12.3 fL MEGAN RIZO Comment:Testing performed by : [address], [address] RBC 4.05(L) 4.30 - 5.80 M/cumm MEGAN RIZO Comment:Testing performed by : [address], [address] MCV 91.4 81.3 - 96.4 fL MEGAN RIZO Comment:Testing performed by : [address], [address] MCH 31.6 27.1 - 33.3 pg MEGAN RIZO Comment:Testing performed by : [address], [address] MCHC 34.6 32.3 - 35.7 g/dL MEGAN RIZO Comment:Testing performed by : [address], [address] RDW CV 15.8(H) 11.1 - 14.9 % MEGAN Comment:Testing performed by : [address], [address] RDW SD 52.7(H) 35.7 - 48.1 fL MEGAN RIZO Comment:Testing performed by : [address], [address] NRBC abs 0.00 0.00 - 0.01 K/cumm MEGAN Comment:Testing performed by : [address], [address] Blood 07/05/2024 11:4 0 AM INSOLE LIP TURNER 07/05/2024 11:43 AM INSOLE LIP TURNER us Gilmer Menezes MD LAB BLOOD ORDERABLES Final Result MEGAN [address] [facility] Department [place] [address] * Manual Differential (07/05/2024 11:40 AM INSOLE LIP TURNER) Differential Auto Comment:Testing performed by : [address] [address] Neutrophil abs 3.6 1.5 - 6.5 K/cumm [facility] Comment:Testing performed by : [address] [address] Imm gran abs 0.0 0.0 - 0.1 K/cumm [facility] Comment:Testing performed by : [address] [address] Lymphocyte abs 0.9 0.8 - 3.3 K/cumm [facility] Comment:Testing performed by : [address] [address] Monocyte abs 0.6 0.2 - 0.8 K/cumm [facility] Comment:Testing performed by : [address] [address] Eosinophil abs 0.0 0.0 - 0.5 K/cumm [facility] Comment:Testing performed by : [address] [address] Basophil abs 0.0 0.0 - 0.1 K/cumm [facility] Comment:Testing performed by : [address] [address] Neutrophil pct 69.2 % [facility] Comment: Interpretive Data Percent cell count reference ranges are not reported, since discordance with absolute values may lead to misinterpretation of CBC data. Current Interpretive Data was last revised on 2017. Testing performed by: [address] [address] Imm gran pct 0.2 % [facility] Comment: Interpretive Data Percent cell count reference ranges are not reported, since discordance with absolute values may lead to misinterpretation of CBC data. Current Interpretive Data was last revised on 2017. Testing performed by: [address] [address] Lymphocyte pct 17.7 % [facility] Comment: Interpretive Data Percent cell count reference ranges are not reported, since discordance with absolute values may lead to misinterpretation of CBC data. Current Interpretive Data was last revised on 2017. Testing performed by: [address] [address] Monocyte pct 11.9 % MEGAN Comment: Interpretive Data Percent cell count reference ranges are not reported, since discordance with absolute values may lead to misinterpretation of CBC data. Current Interpretive Data was last revised on 2017. Testing performed by: [address] [address] Eosinophil pct 0.6 % MEGAN Comment: Interpretive Data Percent cell count reference ranges are not reported, since discordance with absolute values may lead to misinterpretation of CBC data. Current Interpretive Data was last revised on 2017. Testing performed by: [address] [address] Basophil pct 0.4 % MEGAN Comment: Interpretive Data Percent cell count reference ranges are not reported, since discordance with absolute values may lead to misinterpretation of CBC data. Current Interpretive Data was last revised on 2017. Testing performed by: [address] [address] RBC morphology Consistent with RBC Indicies MEGAN Comment:Testing performed by : [address] [address] Platelet estimate Adequate MEGAN Comment:Testing performed by : [address] [address] Blood 07/05/2024 11:4 0 AM INSOLE LIP TURNER 07/05/2024 11:43 AM INSOLE LIP TURNER us Gilmer Menezes MD LAB BLOOD ORDERABLES Final Result MEGAN [address] [facility] Department [place] [address] * Ferritin (07/05/2024 11:40 AM INSOLE LIP TURNER) Ferritin 182 30 - 400 ng/mL Comment:Testing performed by : [address] [address] Blood 07/05/2024 11:4 0 AM INSOLE LIP TURNER 07/05/2024 1:51 PM INSOLE LIP TURNER Gilmer Menezes MD LAB BLOOD ORDERABLES Final Result Performing Organization Address [facility] de Phone Number MEGAN [address] [place] [address] * CEA (07/05/2024 11:40 AM INSOLE LIP TURNER) Pathologist [facility] CEA 2.4 <=5.0 ng/mL Comment: Interpretive Data: Reference Range: Non-Smokers: 0.0 5.0 ng/mL Smokers: 0.0 6.5 ng/mL The Alex CEA assay procedure was used. Results from different manufacturers or methods may not be comparable. Serial testing should be performed using the same method. Current interpretive data was last revised 2022. Testing performed by: [address] [address] Blood 07/05/2024 11:4 0 AM INSOLE LIP TURNER 07/05/2024 1:51 PM INSOLE LIP TURNER Gilmer Menezes MD LAB BLOOD ORDERABLES Final Result Performing Organization Address [facility] de Phone Number [id number] [address] * (ABNORMAL) Comprehensive metabolic panel (07/05/2024 11:40 AM INSOLE LIP TURNER) [facility] Sodium 134(L) 135 - 145 mmol/L Comment:Testing performed by : [address] [address] Potassium, pl 3.7 3.3 - 4.9 mmol/L MEGAN Comment:Testing performed by : [address] [address] Chloride 95(L) 97 - 110 mmol/L MEGAN Comment:Testing performed by : [address] [address] CO2 27 22 - 32 mmol/L MEGAN Comment:Testing performed by : [address] [address] Anion gap 12 2 - 15 mmol/L MEGAN Comment:Testing performed by : [address] [address] BUN 21 6 - 25 mg/dL MEGAN Comment:Testing performed by : [address] [address] Creatinine 1.20 0.80 - 1.30 mg/dL MEGAN Comment:Testing performed by : [address] [address] Glucose 138 70 - 199 mg/dL MEGAN [...] was last revised 2022. Testing performed by: [address] [address] Calcium 9.8 8.5 - 10.3 mg/dL MEGAN Comment:Testing performed by : [address] [address] Bilirubin, total 0.7 0.1 - 1.2 mg/dL MEGAN Comment:Testing performed by : [address] [address] Protein, pl 6.1(L) 6.5 - 8.5 g/dL MEGAN Comment:Testing performed by : [address] [address] Albumin 4.1 3.5 - 5.0 g/dL MEGAN Comment:Testing performed by : [address] [address] Alk phos 86 40 - 130 Units/L MEGAN Comment:Testing performed by : [address] [address] ALT 16 7 - 55 Units/L MEGAN RIZO Comment:Testing performed by : [address] [address] AST 15 10 - 50 Units/L MEGAN RIZO Comment:Testing performed by : [address] [address] Blood 07/05/2024 11:4 0 AM INSOLE LIP TURNER 07/05/2024 11:43 AM INSOLE LIP TURNER us Gilmer Menezes MD LAB BLOOD ORDERABLES Final Result MEGAN RIZO [address] [facility] Department [place] [address] * CT Chest Abdomen Pelvis W Contrast (06/28/2024 11:51 AM INSOLE LIP TURNER) Anatomical Region Laterality Modality Body N/A Computed Tomogra phy 07/01/2024 7:38 AM INSOLE LIP TURNER Narrative 07/01/2024 7:48 AM INSOLE LIP TURNER EXAM DESCRIPTION: CT CHEST ABDOMEN PELVIS W [...] Yan Hairston M.D. CH: DESI Report ID: [id number] Reading Location: [id number] Procedure Note Yan Hairston Jr., MD - [...] Yan Hairston M.D. CH: DESI Report ID: [id number] Reading Location: [place] [address] Gilmer Menezes MD IMG CT PROCEDURES Fi nal Result from Last 3 Months Insurance [employer] MEDICARE UHC MEDICARE ADVANTAGE AET MEDICARE [facility] MEDICARE Advance Directives For more information, please contact: [phone] * Full Code (Latest Code Status on File) Date Activated Date Inactivated Comments 12/28/2023 7:16 AM 12/29/2023 5:30 AM * Full Code Date Activated Date Inactivated Comments 11/02/2023 4:41 PM 11/05/2023 3:41 PM * Full Code Date Activated Date Inactivated Comments 10/16/2020 1:38 PM 10/18/2020 8:32 PM Care Teams Java Software Relationship Specialty Start Date End Date Kaiden Marshall DO [address] [place] [address] PCP - General Family Medicine 10/10/21 Timbo Cardoso MD Consulting Physician Neurology 10/18/20 Mike Ledezma MD PhD [address] [place] [address] Radiation Oncologist Radiation Oncology 02/21/21 Edelmira Alexandre NP [address] [place] [address] Registered Nurse Family Medicine 09/08/23 Jonelle Deluna MD [address] [id number] [place] [address] Surgeon Colon and Rectal Surgery 09/29/23 [place] [address] [place] [address] [place], [place] [id number] Medical Oncologist/Data Consultant Medical Oncology 11/24/23
--- OUTSIDE RECORDS SUMMARY | 2024-09-16 00:11 | XMS_ITS | Encounter Summary ---
Author Organization [facility] Healthcare Address [facility] [place] [address] Care Team Providers Care Storeroom Clerk Name Role Phone Timbo Cardoso MD Unavailable iMke Ledezma MD PhD Unavailable [phone] Esdras Conway MD Unavailable [phone] Kaiden Marshall DO Primary Care Provider Edelmira Alexandre NP Unavailable [phone] Jonelle Deluna MD Unavailable [phone] Gilmer Menezes MD Unavailable [phone] Encounter Details Date Type Department Care Team (Late st Contact Info) Description 02/11/2024 Telephone [facility] [address] [place] [address] Tiffany Kennedy, RN Social History Tobacco Use [...] on file 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 Gender Identity Male 01/29/2021 1:19 PM CDT Sexual Orientation Not on file documented as of this encounter Plan of Treatment Not on file documented as of this encounter Visit Diagnoses Not on filedocumented in this encounter Care Teams Storeroom Clerk Relationship Specialty Start Date End Date Kaiden Marshall DO [address] [place] [address] PCP - General Family Medicine 10/10/21 Timbo Cardoso MD Consulting Physician Neurology 10/18/20 Mike Ledezma MD PhD [address] [place] [address] Radiation Oncologist Radiation Oncology 02/21/21 Esdras Conway MD [address] [place] [address] Referring Physician Urology 02/21/21 04/20/24 Edelmira Alexandre NP [address] [place] [address] Registered Nurse Family Medicine 09/08/23 Jonelle Deluna MD [address] [phone] [place] [address] Surgeon Colon and Rectal Surgery 09/29/23 Gilmer Menezes MD [address] [facility] [address] [place] [address] Medical Oncologist/College Advisor Medical Oncology 11/24/23 documented as of this encounter
--- OUTSIDE RECORDS SUMMARY | 2024-09-16 00:11 | XMS_ITS | Referral Summary ---
Author Organization [facility] Outpatient Health Address [address] [place] [address] Care Team Providers Care Lineworker Name Role Phone Timbo Cardoso MD Unavailable Mike Ledezma MD PhD Unavailable [phone] Kaiden Marshall DO Primary Care Provider Edelmira Alexandre NP Unavailable [phone] Jonelle Deluna MD Unavailable [phone] Gilmer Menezes MD Unavailable + [phone] Encounters Date Type Department Care Team Description 08/18/2024 11:00 AM CDT Office Visit [facility] Radiation Oncology [address] [place] [address] Bryanna Hall NP Prostate cancer (HCC) 08/09/2024 Telephone [facility] Oncology [address] [place] [address] [place] [phone] Gilmer Menezes MD 08/01/2024 Telephone [facility] Radiation Oncology [address] [place] [address] Henrry Darby RN 07/27/2024 Orders Only [facility] Radiation Oncology [address] [place] [address] Bryanna Hall NP 07/08/2024 Telephone [facility] Radiation Oncology [address] [place] [address] Emily Lind MLT 07/07/2024 Orders Only [facility] Physicians [facility] Oncology [facility] [address] [place] [address] Moraima Jacob, RN Malignant neoplasm of colon, unspecified part of colon (HCC) (Primary Dx) 07/05/2024 11:30 AM ONLINE COMMUNICATIONS SPECIALIST Clinical Support [facility] at [address] [address] Malignant neoplasm of colon, unspecified part of colon (HCC) 07/05/2024 12:00 PM ONLINE COMMUNICATIONS SPECIALIST Office Visit [facility] Physicians [facility] Oncology [address] [place] [address] [address] [place] [phone] Gilmer Menezes MD Malignant neoplasm of colon, unspecified part of colon (HCC) (Primary Dx) 06/28/2024 11:27 AM ONLINE COMMUNICATIONS SPECIALIST - 06/28/2024 11:59 PM ONLINE COMMUNICATIONS SPECIALIST Hospital Encounter [facility] Medical Office Building [address] [place] [address] Malignant neoplasm of colon, unspecified part of colon (HCC) Discharge Disposition: Discharge to home or self care from Last 3 Months Allergies No known [...] pain 11/02/2023 Coronary artery disease invo lving douglas coronary artery of douglas heart 05/02/2023 Iron deficiency anemia 05/12/2022 AV [...] (08/15/2020): Added automatically from request for surgery [id number] Assessment & Plan (02/12/2022 11:29 AM CDT): [...] (07/12/2020): Added automatically from request for surgery [id number] Rising PSA following treatme nt for malignant neoplasm of prostate 04/20/2020 Overview (04/20/2020): Added automatically from request for surgery [id number] Elevated PSA 04/20/2020 Overview (03/07/2024): Added automatically from request for surgery [id number] Edema of left lower extremity 02/28/2020 History [...] on file Legal Sex Male 3:59 PM ONLINE COMMUNICATIONS SPECIALIST Gender Identity Male 01/29/2021 1:19 PM CDT [...] cm (5' 8.5 ) 04/19/2024 10:48 AM ONLINE COMMUNICATIONS SPECIALIST Body Mass Index 32.07 04/19/2024 10:48 AM ONLINE COMMUNICATIONS SPECIALIST Plan of Treatment Not on file Medical Devices Implanted Type Area Fitness Plan Coordinator Device Identifier Shelf Expiration Date Model / Serial / Lot Stents Implanted:Qty: 11 Bilateral: Heart Description:2005,2008,2009,2 014,2014,2019,2020 Stents and bypass 1992 [employer] Xcela Power Port 8fr [id number] - [id number] Implanted:Qty: 1 on 12/28/2023 at [facility] [employer] 06/20/2028 [id number] / / [id number] Explanted Type Area Fitness Plan Coordinator Device Identifier Shelf Expiration Date Model / Serial / Lot [employer] Eloy 180-223 Contour 6fr 26cm Large Inner Lumen Low Profile Bladder Melvin Taper Latex Free - [id number] Implanted:Qty: 1 on 09/13/2020 by Esdras Conway MD at [facility] Explanted:Qty: 1 on 10/16/2020 at [facility] [employer] Eloy 05/21/2023 180-223 / / [id number] Procedures Procedure Name Priority Date/Time Associated Diagnosis Comments PSA DIAGNOSTIC Routine 07/27/2024 2:53 PM CDT EGFR Routine 07/05/2024 11:40 AM ONLINE COMMUNICATIONS SPECIALIST Malignant neoplasm of colon, unspecified part of colon (HCC) MANUAL DIFFERENTIAL Routine 07/05/2024 1 1:40 AM ONLINE COMMUNICATIONS SPECIALIST Malignant neoplasm of colon, unspecified part of colon (HCC) DIFFERENTIAL AUTO Routine 07/05/2024 11: 40 AM ONLINE COMMUNICATIONS SPECIALIST Malignant neoplasm of colon, unspecified part of colon (HCC) CBC WITH AUTO DIFFERENTIAL Routine 07/05/2024 11:40 AM ONLINE COMMUNICATIONS SPECIALIST Malignant neoplasm of colon, unspecified part of colon (HCC) CEA Routine 07/05/2024 11:40 AM ONLINE COMMUNICATIONS SPECIALIST Malignant neoplasm of colon, unspecified part of colon (HCC) COMPREHENSIVE METABOLIC PANEL Routine 07/05/2024 11:40 AM ONLINE COMMUNICATIONS SPECIALIST Malignant neoplasm of colon, unspecified part of colon (HCC) FERRITIN Routine 07/05/2024 11:40 AM ONLINE COMMUNICATIONS SPECIALIST Malignant neoplasm of colon, unspecified part of colon (HCC) IRON PROFILE W/ IBC Routine 07/05/2024 1 1:40 AM ONLINE COMMUNICATIONS SPECIALIST Malignant neoplasm of colon, unspecified part of colon (HCC) CT CHEST ABDOMEN PELVIS W CONTRAST Schedule Routine, Read Routine (OP Routine) 06/28/2024 11:51 AM ONLINE COMMUNICATIONS SPECIALIST Malignant neoplasm of colon, unspecified part of colon (HCC) from Last 3 Months Results * PSA diagnostic (07/27/2024 2:53 PM CDT) Blood us Bryanna Hall CHECK CASHIER LAB BLOOD ORDERABLES Edited R esult - Final [facility] [address] [place], [place] [id number], [facility] * eGFR (07/05/2024 11:40 AM ONLINE COMMUNICATIONS SPECIALIST) eGFR 63 >=60 mL/min/1. 73 m2 Comment: [...] was last reviewed 2021. Testing performed by: [address] [address] Blood 07/05/2024 11:4 0 AM ONLINE COMMUNICATIONS SPECIALIST 07/05/2024 11:43 AM ONLINE COMMUNICATIONS SPECIALIST Gilmer Menezes MD LAB BLOOD ORDERABLES Final Result [facility] [address] [facility] Department of Laboratories [place], [place] [id number] * Differential, auto (07/05/2024 11:40 AM ONLINE COMMUNICATIONS SPECIALIST) Neutrophil abs 3.6 1.5 - 6.5 K/cumm Comment:Testing performed by : [address] [address] Imm gran abs 0.0 0.0 - 0.1 K/cumm MEGAN Comment:Testing performed by : [address] [address] Lymphocyte abs 0.9 0.8 - 3.3 K/cumm MEGAN Comment:Testing performed by : [address] [address] Monocyte abs 0.6 0.2 - 0.8 K/cumm MEGAN Comment:Testing performed by : [address] [address] Eosinophil abs 0.0 0.0 - 0.5 K/cumm MEGAN Comment:Testing performed by : [address] [address] Basophil abs 0.0 0.0 - 0.1 K/cumm MEGAN Comment:Testing performed by : [address] [address] Neutrophil pct 69.2 % MEGAN Comment: Interpretive Data Percent cell count reference ranges are not reported, since discordance with absolute values may lead to misinterpretation of CBC data. Current Interpretive Data was last revised on 2017. Testing performed by: [address] [address] Imm gran pct 0.2 % [facility] Comment: Interpretive Data Percent cell count reference ranges are not reported, since discordance with absolute values may lead to misinterpretation of CBC data. Current Interpretive Data was last revised on 2017. Testing performed by: [address] [address] Lymphocyte pct 17.7 % [facility] Comment: Interpretive Data Percent cell count reference ranges are not reported, since discordance with absolute values may lead to misinterpretation of CBC data. Current Interpretive Data was last revised on 2017. Testing performed by: [address] [address] Monocyte pct 11.9 % [facility] Comment: Interpretive Data Percent cell count reference ranges are not reported, since discordance with absolute values may lead to misinterpretation of CBC data. Current Interpretive Data was last revised on 2017. Testing performed by: [address] [address] Eosinophil pct 0.6 % [facility] Comment: Interpretive Data Percent cell count reference ranges are not reported, since discordance with absolute values may lead to misinterpretation of CBC data. Current Interpretive Data was last revised on 2017. Testing performed by: [address] [address] Basophil pct 0.4 % [facility] Comment: Interpretive Data Percent cell count reference ranges are not reported, since discordance with absolute values may lead to misinterpretation of CBC data. Current Interpretive Data was last revised on 2017. Testing performed by: [address] [address] Blood 07/05/2024 11:4 0 AM ONLINE COMMUNICATIONS SPECIALIST 07/05/2024 11:43 AM ONLINE COMMUNICATIONS SPECIALIST us Gilmer Menezes MD LAB BLOOD ORDERABLES Final Result [facility] [address] [facility] Department [place] [address] * Iron profile w/ IBC (07/05/2024 11:40 AM ONLINE COMMUNICATIONS SPECIALIST) [facility] Iron 72 50 - 150 mcg/dL Comment:Testing performed by : [address] [address] TIBC 314 250 - 400 mcg/dL MEGAN Comment:Testing performed by : [address] [address] Transferrin saturation 23 20 - 50 % MEGAN Comment:Testing performed by : [address] [address] Blood 07/05/2024 11:4 0 AM ONLINE COMMUNICATIONS SPECIALIST 07/05/2024 1:51 PM ONLINE COMMUNICATIONS SPECIALIST us Gilmer Menezes MD LAB BLOOD ORDERABLES Final Result Performing Organization Address City/State/[facility] Co de Phone Number MEGAN [address] [facility] Department [place] [address] * (ABNORMAL) CBC with auto differential (07/05/2024 11:40 AM ONLINE COMMUNICATIONS SPECIALIST) [facility] WBC 5.2 3.8 - 9.9 K/cumm Comment:Testing performed by : [address] [address] Hgb 12.8(L) 13.0 - 17.5 g/dL MEGAN RIZO Comment:Testing performed by : [address] [address] Hct 37.0(L) 38.9 - 50.3 % MEGAN RIZO Comment:Testing performed by : [address] [address] Plt 143(L) 150 - 400 K/cumm MEGAN RIZO Comment:Testing performed by : [address] [address] MPV 9.6 9.1 - 12.3 fL MEGAN RIZO Comment:Testing performed by : [address] [address] RBC 4.05(L) 4.30 - 5.80 M/cumm MEGAN RIZO Comment:Testing performed by : [address] [address] MCV 91.4 81.3 - 96.4 fL MEGAN RIZO Comment:Testing performed by : [address] [address] MCH 31.6 27.1 - 33.3 pg MEGAN RIZO Comment:Testing performed by : [address], [address] MCHC 34.6 32.3 - 35.7 g/dL MEGAN Comment:Testing performed by : [address] [address] RDW CV 15.8(H) 11.1 - 14.9 % MEGAN Comment:Testing performed by : [address] [address] RDW SD 52.7(H) 35.7 - 48.1 fL MEGAN Comment:Testing performed by : [address] [address] NRBC abs 0.00 0.00 - 0.01 K/cumm MEGAN Comment:Testing performed by : [address], [address] Blood 07/05/2024 11:4 0 AM ONLINE COMMUNICATIONS SPECIALIST 07/05/2024 11:43 AM ONLINE COMMUNICATIONS SPECIALIST Gilmer Menezes MD LAB BLOOD ORDERABLES Final Result [facility] [address] [facility] Department of Laboratories [place], [place] [id number] * Manual Differential (07/05/2024 11:40 AM ONLINE COMMUNICATIONS SPECIALIST) Differential Auto Comment:Testing performed by : [address], [address] Neutrophil abs 3.6 1.5 - 6.5 K/cumm MEGAN Comment:Testing performed by : [address], [address] Imm gran abs 0.0 0.0 - 0.1 K/cumm [facility] Comment:Testing performed by : [address], [place]., [address] Lymphocyte abs 0.9 0.8 - 3.3 K/cumm [facility] Comment:Testing performed by : [address], [place]., [address] Monocyte abs 0.6 0.2 - 0.8 K/cumm [facility] Comment:Testing performed by : [address], [place]., [address] Eosinophil abs 0.0 0.0 - 0.5 K/cumm [facility] Comment:Testing performed by : [address], [place]., [address] Basophil abs 0.0 0.0 - 0.1 K/cumm [facility] Comment:Testing performed by : [address] [address] Neutrophil pct 69.2 % [facility] Comment: Interpretive Data Percent cell count reference ranges are not reported, since discordance with absolute values may lead to misinterpretation of CBC data. Current Interpretive Data was last revised on 2017. Testing performed by: [address] [address] Imm gran pct 0.2 % [facility] Comment: Interpretive Data Percent cell count reference ranges are not reported, since discordance with absolute values may lead to misinterpretation of CBC data. Current Interpretive Data was last revised on 2017. Testing performed by: [address] [address] Lymphocyte pct 17.7 % [facility] Comment: Interpretive Data Percent cell count reference ranges are not reported, since discordance with absolute values may lead to misinterpretation of CBC data. Current Interpretive Data was last revised on 2017. Testing performed by: [address] [address] Monocyte pct 11.9 % [facility] Comment: Interpretive Data Percent cell count reference ranges are not reported, since discordance with absolute values may lead to misinterpretation of CBC data. Current Interpretive Data was last revised on 2017. Testing performed by: [address] [address] Eosinophil pct 0.6 % MEGAN Comment: Interpretive Data Percent cell count reference ranges are not reported, since discordance with absolute values may lead to misinterpretation of CBC data. Current Interpretive Data was last revised on 2017. Testing performed by: [address] [address] Basophil pct 0.4 % MEGAN Comment: Interpretive Data Percent cell count reference ranges are not reported, since discordance with absolute values may lead to misinterpretation of CBC data. Current Interpretive Data was last revised on 2017. Testing performed by: [address] [address] RBC morphology Consistent with RBC Indicies MEGAN Comment:Testing performed by : [address] [address] Platelet estimate Adequate MEGAN Comment:Testing performed by : [address] [address] Blood 07/05/2024 11:4 0 AM ONLINE COMMUNICATIONS SPECIALIST 07/05/2024 11:43 AM ONLINE COMMUNICATIONS SPECIALIST Gilmer Menezes MD LAB BLOOD ORDERABLES Final Result Performing Organization Address City/[facility]/ZIP Co de Phone Number [id number] [place] [email or web address] [address] * Ferritin (07/05/2024 11:40 AM ONLINE COMMUNICATIONS SPECIALIST) Ferritin 182 30 - 400 ng/mL Comment:Testing performed by : [address] [address] Blood 07/05/2024 11:4 0 AM ONLINE COMMUNICATIONS SPECIALIST 07/05/2024 1:51 PM ONLINE COMMUNICATIONS SPECIALIST Gilmer Menezes MD LAB BLOOD ORDERABLES Final Result [id number] Department [place] [email or web address] [address] * CEA (07/05/2024 11:40 AM ONLINE COMMUNICATIONS SPECIALIST) CEA 2.4 <=5.0 ng/mL Comment: Interpretive Data: Reference Range: Non-Smokers: 0.0 5.0 ng/mL Smokers: 0.0 6.5 ng/mL The Alex CEA assay procedure was used. Results from different manufacturers or methods may not be comparable. Serial testing should be performed using the same method. Current interpretive data was last revised 2022. Testing performed by: [address] [address] Blood 07/05/2024 11:4 0 AM ONLINE COMMUNICATIONS SPECIALIST 07/05/2024 1:51 PM ONLINE COMMUNICATIONS SPECIALIST Gilmer Menezes MD LAB BLOOD ORDERABLES Final Result [place] [address] [facility] Department [place] [address] * (ABNORMAL) Comprehensive metabolic panel (07/05/2024 11:40 AM ONLINE COMMUNICATIONS SPECIALIST) Sodium 134(L) 135 - 145 mmol/L Comment:Testing performed by : [address] [address] Potassium, pl 3.7 3.3 - 4.9 mmol/L MEGNA Comment:Testing performed by : [address] [address] Chloride 95(L) 97 - 110 mmol/L MEGAN Comment:Testing performed by : [address] [address] CO2 27 22 - 32 mmol/L MEGAN Comment:Testing performed by : [address] [address] Anion gap 12 2 - 15 mmol/L MEGAN Comment:Testing performed by : [address] [address] BUN 21 6 - 25 mg/dL MEGAN Comment:Testing performed by : [address] [address] Creatinine 1.20 0.80 - 1.30 mg/dL MEGAN Comment:Testing performed by : [address] [address] Glucose 138 70 - 199 mg/dL MEGAN [...] was last revised 2022. Testing performed by: [address] [address] Calcium 9.8 8.5 - 10.3 mg/dL MEGAN Comment:Testing performed by : [address] [address] Bilirubin, total 0.7 0.1 - 1.2 mg/dL MEGAN Comment:Testing performed by : [address] [address] Protein, pl 6.1(L) 6.5 - 8.5 g/dL MEGAN Comment:Testing performed by : [address] [address] Albumin 4.1 3.5 - 5.0 g/dL MEGAN Comment:Testing performed by : [address] [address] Alk phos 86 40 - 130 Units/L MEGAN Comment:Testing performed by : [address] [address] ALT 16 7 - 55 Units/L MEGAN Comment:Testing performed by : [address] [address] AST 15 10 - 50 Units/L MEGAN Comment:Testing performed by : [address] [address] Blood 07/05/2024 11:4 0 AM ONLINE COMMUNICATIONS SPECIALIST 07/05/2024 11:43 AM ONLINE COMMUNICATIONS SPECIALIST us Gilmer Menezes MD LAB BLOOD ORDERABLES Final Result [facility] [address] [facility] Department [place] [address] * CT Chest Abdomen Pelvis W Contrast (06/28/2024 11:51 AM ONLINE COMMUNICATIONS SPECIALIST) Anatomical Region Laterality Modality Body N/A Computed Tomogra phy 07/01/2024 7:38 AM ONLINE COMMUNICATIONS SPECIALIST Narrative 07/01/2024 7:48 AM ONLINE COMMUNICATIONS SPECIALIST EXAM DESCRIPTION: CT CHEST ABDOMEN PELVIS W [...] Yan Hairston M.D. CH: DESI Report ID: [id number] Reading Location: [place] [address] Procedure Note Yan Hairston Jr., MD - [...] Yan Hairston M.D. CH: DESI Report ID: [id number] Reading Location: [place] [address] Gilmer Menezes MD IMG CT PROCEDURES Fi nal Result from Last 3 Months Insurance [facility] MEDICARE [facility]IC[facility] Address: [address] [address] [place] [address] [facility] MEDICARE Advance Directives For more information, please contact: [phone] * Full Code (Latest Code Status on File) Date Activated Date Inactivated Comments 12/28/2023 7:16 AM 12/29/2023 5:30 AM * Full Code Date Activated Date Inactivated Comments 11/02/2023 4:41 PM 11/05/2023 3:41 PM * Full Code Date Activated Date Inactivated Comments 10/16/2020 1:38 PM 10/18/2020 8:32 PM Care Teams Lineworker Relationship Specialty Start Date End Date Kaiden Marshall DO [address] [place] [address] PCP - General Family Medicine 10/10/21 Timbo Cardoso MD Consulting Physician Neurology 10/18/20 Mike Ledezma MD PhD [address] [place] [address] Radiation Oncologist Radiation Oncology 02/21/21 Edelmira Alexandre NP [address] [place] [address] Registered Nurse Family Medicine 09/08/23 Jonelle Deluna MD [address] [phone] [place] [address] Surgeon Colon and Rectal Surgery 09/29/23 Gilmer Menezes MD [address] [facility] [address] [place] [address] Medical Oncologist/Detective Bureau Chief Medical Oncology 11/24/23
--- OUTSIDE RECORDS SUMMARY | 2024-09-16 00:11 | XMS_ITS | Clinical Summary ---
Author Organization [facility] Address [address] [place] [address] Phone Care Team Providers Care Production Associate Name Role Phone Karly Pat MD Unavailable Kaiden Marshall MD Primary Care Provider [phone] Allergies No known active allergies Medications amLODIPine [...] Active fluticasone (FLONASE) 50 MCG/ACT Suspension 1 [place] by Nasal route nightly. Use in each [...] cm (5' 10 ) 05/26/2023 9:24 AM PORCELAIN ENAMEL SPRAYER Body Mass Index 30.28 05/26/2023 9:24 AM PORCELAIN ENAMEL SPRAYER Plan of Treatment Upcoming Encounters Date Type Department Care Team (Late st Contact Info) Description 02/21/2025 10:00 AM CDT Office Visit [facility] - Endocrinology - [place] [address] [place] [address] Karly Pat MD [address] [address] Health Maintenance Due Date Last [...] (Adult) (1 - 1-dose 75+ series) 12/19/2023 SARS-COV-2 Immunization (4 - 2023- season) 2024 02/19/2021, 07/06/2020, 06/15/2020 Influenza Immunization (Seas on Ended) 2025 02/12/2021, 02/11/2021, 02/28/2020 Human Papillomavirus (HPV) Immunization Aged Out No longer eligible b ased on patient's age to complete this topic Meningococcal Immunization (ACWY) Aged Out No longer eligible b ased on patient's age to complete this topic Rotavirus Immunization Aged Out No lo nger eligible based on patient's age to complete this topic Insurance MEDICARE C [employer] Care Teams Production Associate Relationship Specialty Start Date End Date Kaiden Marshall MD [address] [place] [address] PCP - General Family Medicine 02/20/22 Karly Pat MD [address] [address] Consulting Physician Endocrinology 02/11/22
--- OUTSIDE RECORDS SUMMARY | 2024-09-16 00:11 | XMS_ITS ---
Author Organization [facility] Address [address] [place] [address] Care Team Providers Care Pumper Gager Name Role Phone Timbo Cardoso MD Unavailable Mike Ledezma MD PhD Unavailable [phone] Kaiden Marshall DO Primary Care Provider Edelmira Alexandre NP Unavailable [phone] Jonelle Deluna MD Unavailable [phone] Gilmer Menezes MD Unavailable [phone] Active Problems Problem Noted Date Diagnosed Date DVT of lower extremity, bilateral 03/07/2024 Iron deficiency anemia due to chronic blood loss 01/13/2024 Anemia 01/12/2024 Colon cancer 11/02/2023 Acute postoperative abdominal pain 11/02/2023 Coronary artery disease invo lving manzanita coronary artery of manzanita heart 05/02/2023 Iron deficiency anemia 05/12/2022 AV [...] (08/15/2020): Added automatically from request for surgery [id number] Assessment & Plan (02/12/2022 11:29 AM CDT): [...] (07/12/2020): Added automatically from request for surgery [id number] Rising PSA following treatme nt for malignant neoplasm of prostate 04/20/2020 Overview (04/20/2020): Added automatically from request for surgery [id number] Elevated PSA 04/20/2020 Overview (03/07/2024): Added automatically from request for surgery [id number] Edema of left lower extremity 02/28/2020 History [...]
--- OUTSIDE RECORDS SUMMARY | 2024-09-16 00:11 | XMS_ITS | Encounter Summary ---
Author Organization [facility] Address [address] [place] [address] Care Team Providers Care Coal Hauler Operator Name Role Phone Teresa Morin APRN MOTORCYCLE SERVICE TECHNICIANMieshaC Unavailable [phone] Ang Hudson MD Unavailable Kaiden Marshall DO Primary Care Provider [phone] Matteo Denise MD Unavailable [phone] Jonelle Deluna MD Unavailable Houston Beaver MD Unavailable [phone] Reason for Visit * Reason Onset Date Comments Information 09/15/2024 Surgical Clearance 09/15/2024 Encounter Details Date Type Department Care Team ([facility] st Contact Info) Description 09/15/2024 Telephone [facility] [address] [place] [address] Teresa Morin APRN, MOTORCYCLE SERVICE TECHNICIAN-C [address] [facility] [address] [place] [address] Information; Surgical Clearance Social History Tobacco Use Types Packs/Day Years Used Date Smoking Tobacco: Never Smokeless Tobacco: Never Alcohol Use Standard Drinks/Week Comments Yes 0 (1 standard drink = 0.6 oz pur e alcohol) rarely Sex and Gender Information Value Date Recorded Sex Assigned at Male 05/25/2024 9:04 AM SKIN FORMER Legal Sex Male 9:59 PM CDT Gender Identity Not on file Sexual Orientation Not on file Occupation Industry Job Start Date Job End Date Retired Not on file Not on file Not on file documented as of this encounter Functional Status * Are you deaf or do you have serious difficulty hearing Answer Date of Assessment Author Status No 07/13/2023 7:48 AM Tank Eng RN Active * Are you blind or do you have serious difficulty seeing, even when wearing glasses? Answer Date of Assessment Author Status No 07/13/2023 7:48 AM Tank Egn RN Active * Do you have serious difficulty walking or climbing stairs? Answer Date of Assessment Author Status No 07/13/2023 7:48 AM Tank Eng RN Active * Do you have difficulty dressing or bathing? Answer Date of Assessment Author Status No 07/13/2023 7:48 AM Tank Eng RN Active * Because of a physical, mental, or emotional condition, do you have difficulty doing errands alone such as visiting a doctor's office or shopping? Answer Date of Assessment Author Status No 07/13/2023 7:48 AM Tank Eng RN Active documented as of this encounter Mental Status * Because of a physical, mental, or emotional condition, do you have serious difficulty concentrating, remembering, or making decisions? Answer Entry Date Author Status No 07/13/2023 7:48 AM Tank Eng RN Active documented in this encounter Progress Notes * Susanne Sosa - 09/15/2024 3:03 PM CDT Faxed Teresa Morin APRN, MOTORCYCLE SERVICE TECHNICIAN-C 09/15/24 office note and completed cardiac clearance form to [facility] [phone]. Gave form to [facility]. * Teresa Morin APRN, MOTORCYCLE SERVICE TECHNICIANMieshaC - 09/15/2024 2:09 PM CDT I have the form completed. However, I am still in clinic seeing patients in pod 4. I finished my dictation, which could be sent over. * Susanne Sosa - 09/15/2024 1:29 PM CDT [facility] calling wanting to know if pt was cleared for his colonoscopy tomorrow. Told her pt was just seen this morning and Teresa Morin APRN, NP-C office note was not signed yet but pt is cleared. Told her I would request she sign and fax. She stated that there is also a form that they had faxed yesterday that will also need to be filled out and faxed back along with the office note to [phone].. Told her I could not tell if it was received or not. She stated she would fax it again to [phone]. * Teresa Morin APRN, NP-C - 09/15/2024 1:13 PM CDT Attempted to reach [facility]. Left message stating that Santo is ok to proceed with colonoscopy tomorrow. I will fax over my office note once I am finished with clinic this afternoon. documented in this encounter Plan of Treatment Upcoming Encounters Date Type Department Care Team (Late st Contact Info) Description 10/05/2024 9:[address] [facility] [address] [place] [address] Tereas Morin APRN, BROOK[facility] [address] [facility] [address] [place] [address] 12/27/2024 9:30 AM CDT Appointment [facility] [address] [place] [address] Ang Hudson MD [address] [facility], [address] [place] [address] 06/02/2025 10:00 AM SKIN FORMER Office Visit [facility] [address] [place] [address] Teresa Morin APRN, MOTORCYCLE SERVICE TECHNICIAN-C [address] [address] documented as of this encounter Goals [...] on filedocumented in this encounter Care Teams Coal Hauler Operator Relationship Specialty Start Date End Date Kaiden Marshall DO [address] [place] [address] PCP - General FAMILY PRACTICE 11/12/22 Teresa Morin APRN, MOTORCYCLE SERVICE TECHNICIAN-C [address] [address] NURSE PRACTITIONER 12/01/19 Ang Hudson MD [address] [phone] Vascular/Channel Process Supervisor INTERNAL MEDICINE 01/05/20 Matteo Denise MD [address] [place] [address] Consulting Physician ORTHOPAEDIC SURGERY 07/06/23 Jonelle Deluna MD [address] [place] [address] COLON/RECTAL SURGERY 10/06/23 Houston Beaver MD [address] [place] [address] Consulting Physician INTERVENTIONAL CARDIOLOGY 05/25/24 documented as of this encounter
--- OUTSIDE RECORDS SUMMARY | 2024-09-16 00:12 | XMS_ITS | Encounter Summary ---
Author Organization [facility] Address [address] [place] [address] Care Team Providers Care Business Development Professional Name Role Phone Rita Lee MD Primary Care Provider Chintan Martinez MD Unavailable [phone] Pérez Herr MD Primary Care Provider [phone] Giuseppe Kulkarni MD Primary Care Provider Angela Miramontes [facility] Unavailable [phone] Cabrera Crouch MD Unavailable [phone] Teresa Morin APRN SOW FARM TECHNICIAN-C Unavailable [phone] Ang Hudson MD Unavailable Kaiden Marshall DO Primary Care Provider [phone] Kaiden Marshall DO Primary Care Provider [phone] Matteo Denise MD Unavailable [phone] Jonelle Deluna MD Unavailable [phone] Houston Beaver MD Unavailable [phone] Encounter Details Date Type Department Care Team (Late st Contact Info) Description 07/25/2017 Abstract [facility] [address] [place] [address] , Generic Conversion, Social History Tobacco Use Types Packs/Day Years Used Date Smoking Tobacco: Never Smokeless Tobacco: Never Alcohol Use Standard Drinks/Week Comments Yes 0 (1 standard drink = 0.6 oz pur e alcohol) Occasionally Sex and Gender Information Value Date Recorded Sex Assigned at Male 05/25/2024 9:04 AM COVER MARKER Legal Sex Male 9:59 PM CDT Gender Identity Not on file Sexual Orientation Not on file Occupation Industry Job Start Date Job End Date Retired Not on file Not on file Not on file documented as of this encounter Plan of Treatment Upcoming Encounters Date Type Department Care Team (Late st Contact Info) Description 10/05/2024 9:00 AM CDT Appointment [facility] [address] [place] [address] Teresa Morin, ALLY, SOW FARM TECHNICIAN-C [address] [phone] 12/27/2024 9:30 AM CDT Appointment [facility] [address] [place] [address] Ang Hudson MD [address] [facility], [address] [place] [address] 06/02/2025 10:00 AM COVER MARKER [facility] [address] [place] [address] Teresa Morin APRN, SOW FARM TECHNICIAN-C [address] [phone] documented as of this encounter Visit Diagnoses Not on filedocumented in this encounter Additional Health Concerns Infection Onset Date Last Indicated Resolved Time COVID-19 Rule Out 11/19/2019 11/19/2019 11/20/2019 10:43 PM CDT COVID-19 Rule Out 12/24/2019 12/24/2019 12/25/2019 12:13 PM CDT COVID-19 Rule Out 07/31/2020 07/31/2020 08/01/2020 7:36 PM CDT documented as of this encounter Care Teams Business Development Professional Relationship Specialty Start Date End Date Rita Lee MD PCP - General SURGERY 01/03/16 11/15/18 Pérez Herr MD [address] [place] [address] PCP - General FAMILY PRACTICE 11/16/18 06/08/19 Giuseppe Kulkarni MD [address] [place] [address] [address] [place] [address] PCP - General FAMILY PRACTICE 06/09/19 10/14/21 Kaiden Marshall DO [address] [place] [address] PCP - General FAMILY PRACTICE 10/15/21 11/11/22 Kaiden Marshall DO [address] [place] [address] PCP - General FAMILY PRACTICE 11/12/22 Chintan Spears MD [address] [place] [address] [employer]oyntelle Furniture Sales Consultant CARDIOVASCULAR DISEASE 01/03/16 12/20/23 Angela Miramontes AGACNP-BC [address] [place] [address] NURSE PRACTITIONER 07/07/19 07/05/23 Cabrera Crouch MD [address] [place] [address] CARDIOTHORACIC SURGERY 10/26/19 4 Teresa Morin, MANAGER SERVICING, SOW FARM TECHNICIAN-C [facility] [address] [facility] [address] [place] [address] NURSE PRACTITIONER 12/01/19 Ang Hudson MD [address] [facility] [address] [place] [address] Vascular/Furniture Sales Consultant INTERNAL MEDICINE 01/05/20 Matteo Denise MD [address] [place], [place] [address] Consulting Physician ORTHOPAEDIC SURGERY 07/06/23 Jonelle Deluna MD [address] [place] [address] COLON/RECTAL SURGERY 10/06/23 Houston Beaver MD [address] [place] [address] Consulting Physician INTERVENTIONAL CARDIOLOGY 05/25/24 documented as of this encounter
--- OUTSIDE RECORDS SUMMARY | 2024-09-16 00:12 | XMS_ITS | Encounter Summary ---
Author Organization [facility] Healthcare Address [facility] [place] [address] Care Team Providers Care Clerical Dentist Assistant Name Role Phone Giuseppe Kulkarni MD Primary Care Provider Timbo Cardoso MD Unavailable Mike Ledezma MD PhD Unavailable [phone] Esdras Conway MD Unavailable [phone] Kaiden Marshall DO Primary Care Provider Edelmira Alexandre NP Unavailable [phone] Jonelle Deluna MD Unavailable Gilmer Menezes MD Unavailable [phone] Encounter Details Date Type Department Care Team (Late st Contact Info) Description 07/04/2020 Telephone [facility] [address] [place] [address] Jonelle Benitez, RT Social History Tobacco Use Types Packs/Day Years Used Date Smoking Tobacco: Never Smokeless Tobacco: Never Alcohol Use Standard Drinks/Week Comments Yes 0 (1 standard drink = 0.6 oz pur e alcohol) very rare wine Sex and Gender Information Value Date Recorded Sex Assigned at Not on file Legal Sex Male 3:59 PM JEWELRY CASTING MODEL MAKER Gender Identity Male 01/29/2021 1:19 PM CDT Sexual Orientation Not on file documented as of this encounter Plan of Treatment Not on file documented as of this encounter Visit Diagnoses Not on filedocumented in this encounter Care Teams Clerical Dentist Assistant Relationship Specialty Start Date End Date Giuseppe Kulkarni MD PCP - General Family Medicine 03/20/20 10/09/21 Rolando Kaidenkatie PradohDO [address] [place] [address] PCP - General Family Medicine 10/10/21 Timbo Cardoso MD Consulting Physician Neurology 10/18/20 Mike Ledezma MD PhD [address] [place] [address] Radiation Oncologist Radiation Oncology 02/21/21 Esdras Conway MD [address] [place] [address] Referring Physician Urology 02/21/21 04/20/24 Edelmira Alexandre NP [address] [place] [address] Registered Nurse Family Medicine 09/08/23 Jonelle Deluna MD [facility] [address] [facility] [phone] [place] [address] Surgeon Colon and Rectal Surgery 09/29/23 [place] [address] [place] [address] [address] [place] [address] Medical Oncologist/Tape Coater Medical Oncology 11/24/23 documented as of this encounter
--- OUTSIDE RECORDS SUMMARY | 2024-09-16 00:12 | XMS_ITS | Encounter Summary ---
Author Organization [facility] Address [address] [place] [address] Care Team Providers Care Spray I Painter Name Role Phone Rita Lee MD Primary Care Provider Chintan Martinez MD Unavailable [phone] Pérez Herr MD Primary Care Provider [phone] Giuseppe Kulkarni MD Primary Care Provider Angela Miramontes [facility] Unavailable [phone] Cabrera Crouch MD Unavailable [phone] Teresa Morin APRN, NP-C Unavailable [phone] Ang Hudson MD Unavailable Kaiden Marshall DO Primary Care Provider [phone] Kaiden Marshall DO Primary Care Provider [phone] Matteo Denise MD Unavailable [phone] Jonelle Deluna MD Unavailable [phone] Houston Beaver MD Unavailable [phone] Encounter Details Date Type Department Care Team (Late st Contact Info) Description 10/19/2014 Abstract [facility] [address] [place] [address] Chintan Spears MD [address] [place] [address] Social History Tobacco Use Types Packs/Day Years Used Date Smoking Tobacco: Never Alcohol Use Standard Drinks/Week Comments Yes 0 (1 standard drink = 0.6 oz pur e alcohol) Occasionally Sex and Gender Information Value Date Recorded Sex Assigned at Male 05/25/2024 9:04 AM HARVEST FIELD TICKETER Legal Sex Male 9:59 PM CDT Gender Identity Not on file Sexual Orientation Not on file Occupation Industry Job Start Date Job End Date Retired Not on file Not on file Not on file documented as of this encounter Plan of Treatment Upcoming Encounters Date Type Department Care Team (Late st Contact Info) Description 10/05/2024 9:[address] [facility] [address] [place] [address] Teresa Morin APRN, MUCK BOSS-C [address] [phone] 12/27/2024 9:[address] [facility] [address] [place] [address] Ang Hudson MD [address] [facility], [address] [place] [address] 06/02/2025 10:00 AM HARVEST FIELD TICKETER [facility] [address] [place] [address] Teresa Morin APRN, MUCK BOSS-C [address] [phone] documented as of this encounter Visit Diagnoses Not on filedocumented in this encounter Additional Health Concerns Infection Onset Date Last Indicated Resolved Time COVID-19 Rule Out 11/19/2019 11/19/2019 11/20/2019 10:43 PM CDT COVID-19 Rule Out 12/24/2019 12/24/2019 12/25/2019 12:13 PM CDT COVID-19 Rule Out 07/31/2020 07/31/2020 08/01/2020 7:36 PM CDT documented as of this encounter Care Teams Spray I Painter Relationship Specialty Start Date End Date Rita Lee MD PCP - General SURGERY 01/03/16 11/15/18 Pérez Herr MD [address] [place] [address] PCP - General FAMILY PRACTICE 11/16/18 06/08/19 Giuseppe Kulkarni MD [address] [facility] [address] [place] [address] PCP - General FAMILY PRACTICE 06/09/19 10/14/21 Kaiden Marshall DO [address] [place] [address] PCP - General FAMILY PRACTICE 10/15/21 11/11/22 Kaiden Marshall DO [address] [place] [address] PCP - General FAMILY PRACTICE 11/12/22 Chintan Spears MD [facility] [place] [phone] [place] Hotel Clerk CARDIOVASCULAR DISEASE 01/03/16 12/20/23 Angela Miramontes AGACNP-BC [address] [place] [id number] NURSE PRACTITIONER 07/07/19 07/05/23 Cabrera Crouch MD [address] [address] CARDIOTHORACIC SURGERY 10/26/19 4 Teresa Morin APRN, MUCK BOSS-C [address] [facility] [address] [phone] NURSE PRACTITIONER 12/01/19 Ang Hudson MD [address] [facility] [address] [phone] Vascular/Hotel Clerk INTERNAL MEDICINE 01/05/20 Matteo Denise MD [address] [place] [address] Consulting Physician ORTHOPAEDIC SURGERY 07/06/23 Jonelle Deluna MD [address] [place] [address] COLON/RECTAL SURGERY 10/06/23 Houston Beaver MD [address] [place] [address] Consulting Physician INTERVENTIONAL CARDIOLOGY 05/25/24 documented as of this encounter
--- OUTSIDE RECORDS SUMMARY | 2024-09-16 00:12 | XMS_ITS | Encounter Summary ---
Author Organization [facility] Address [address] [place] [address] Care Team Providers Care Airway Traffic Controller Name Role Phone Teresa Morin APRN, NP-C Unavailable Ang Hudson MD Unavailable Kaiden Calhoun DO Primary Care Provider [phone] Matteo Denise MD Unavailable [phone] Jonelle Deluna MD Unavailable Houston Beaver MD Unavailable Reason for Referral * Imaging (Routine) - New Request Specialty Diagnoses / Procedures Referred By Sammy t Referred To Contact RADIOLOGY Diagnoses Coronary artery disease involving agua caliente coronary artery of ag[place] heart without angina pectoris Essential (primary) hypertension Shortness of breath Procedures USE ECHOCARDIOGRAM Teresa Morin APRN, NP-C [address] [facility] [address] [place] [address] Phone: tel: fax: Referral ID Status Reason Start Date Expiration Date V isits Requested Visits Authorized [id number] New Request 09/15/2024 10/16/2025 1 1 Reason for Visit * Reason Comments Consult Preop evaluation twyla or to colonoscopy Encounter Details Date Type Department Care Team ([facility] st Contact Info) Description 09/15/2024 10:00 AM CDT Office Visit Avel finney [address] [place] [address] Teresa Morin APRN, RESIDENT SERVICES MANAGER-C [address] [facility] [address] [place] [phone] Consult (Preop evaluation prior to colonoscopy) Social History Tobacco Use Types Packs/Day Years Used Date Smoking Tobacco: Never Smokeless Tobacco: Never Alcohol Use Standard Drinks/Week Comments Yes 0 (1 standard drink = 0.6 oz pur e alcohol) rarely Sex and Gender Information Value Date Recorded Sex Assigned at Male 05/25/2024 9:04 AM HEEL SEAT FILLER Legal Sex Male 9:59 PM CDT Gender Identity Not on file Sexual Orientation Not on file Occupation Industry Job Start Date Job End Date Retired Not on file Not on file Not on file documented as of this encounter Last Filed Vital Signs Vital Sign Reading Time Taken Comments Blood Pressure 134/62 09/15/2024 9:54 AM CDT Pulse 74 09/15/2024 9:54 AM CDT Temperature - - Respiratory Rate 18 09/15/2024 9:54 AM CDT Oxygen Saturation - - Inhaled Oxygen Concentration - - Weight 98.9 kg (218 lb) 09/15/2024 9:54 AM CDT Height 177.8 cm (5' 10 ) 09/15/2024 9:54 AM CDT Body Mass Index 31.28 09/15/2024 9:54 AM CDT documented in this encounter Functional Status * Are you deaf or do you have serious difficulty hearing Answer Date of Assessment Author Status No 07/13/2023 7:48 AM Tank Eng RN Active * Are you blind or do you have serious difficulty seeing, even when wearing glasses? Answer Date of Assessment Author Status No 07/13/2023 7:48 AM Tank Eng RN Active * Do you have serious [...] documented in this encounter Progress Notes * Teresa Morin APRN, GABRIELE-C - 09/15/2024 10:00 AM CDT Reason for Visit: Consult (Preop evaluation prior to colonoscopy) History of Present Illness: Mr. Miller is a pleasant 73-year-old male seen in the cardiology clinic today for a preoperative cardiac risk assessment prior to undergoing a colonoscopy at [facility] on 09/16/2024. He hasa history of coronary artery disease s/p CABGx7 in 1992 with subsequent stenting to the SVG-RCA in 2007, 2008, 2014, 2020, 2022, and POBA in 2021, carotid stenosis s/p right endarterectomy on 2019 and left endarterectomy 2021, bilateral DVTs and pulmonary embolism s/p IVC filter placement in 07/28 with removal 12/28, hypertension, hyperlipidemia, diabetes, sleep apnea, colon cancer, and GERD. He reports that he is doing reasonably well from a cardiac standpoint. He denies any anginal chest pain. He continues to have exertional shortness of breath. Overall, he admits to little physical activity. He does walk from his house to his shed, which will cause dyspnea. He denies any claudication, but has been having back pain with leg weakness. He denies any overt symptoms of congestive heart failure such as paroxysmal nocturnal dyspnea or orthopnea. He developedmild lower extremity edema throughout the day. He has no palpitations. He has occasional lightheadedness but denies any syncope. He denies signs and symptoms of CVA or TIA. He seems to be tolerating his present medications well without reported side effects. He denies signs of bleeding. His weight is up approximately 7 pounds from his last visit. Evaluation during the clinic visit included an EKG which confirmed the presence of atrial fibrillation at a rate of 74 beats per minute. Recommendations/Plan: Mr. Miller's cardiac status appears clinically stable at the present time without consistent ongoing anginal chest pain, overt symptoms of congestive heart failure, or clinical evidence of hemodynamically significant arrhythmias. His blood pressure is well controlled in the office today. His last echocardiogram in 2021 noted an LVEF 61% with mild mitral and tricuspid regurgitation. His cardiac catheterization on 12/16/2023 revealed occluded agua caliente arteries with patent STROUD-LAD, known occludedSVG-OM, and patent SVG-RCA with 80% in-stent restenosis. Medical therapy was recommended at that time. His antianginals were increased, and he had improvement of chest discomfort. His planned colonoscopy is a low risk procedure from a cardiovascular standpoint. I believe that his cardiovascular risk of the procedure is moderately increased in light of his known coronary arterydisease, peripheral vascular disease, atrial fibrillation, and hypertension. This moderately increas ed cardiovascular risk is felt to be acceptable in light of the overall clinical situation. At the time of surgery, I would recommend the followin. Perioperative telemetry monitoring. 2. Discontinuation of Eliquis anticoagulation 2-3 days for the procedure. 3. Perioperative maintenance of statin therapy. 4. Maintenance of a serum hemoglobin of 8.0 or greater. From a half-way standpoint, I have recommended to Mr. Miller: CAD, Dyspnea He denies any anginal chest pain. He does have exertional shortness of breath. We willtry advancing his Imdur from 60 mg to 90 mg daily. We will also recheck an echocardiogram. Atrial Fibrillation. He is in atrial fibrillation in the office today. His heart rate is well controlled without medication. He is anticoagulated with Eliquis. Carotid Stenosis s/p Endarterectomy. He has bilateral endarterectomies. He denies any neurological symptoms. He will continue his aspirin and statin. Annual carotid dopplers are recommended. His mostrecent carotid dopplers from November 2023 revealed 40-59% right ICA stenosis and 60-79% left ICA stenosis. He has repeat doppler scheduled for December. Dr. Hudson has left the practice, so I will call him his results. Hypertension. His blood pressure is well controlled in the office today. Hyperlipidemia. He is currently treated with atorvastatin and denies any reported side effects. An LDL less than 70 is recommended. His most recent lipid panel from 03/09/2024 demonstrated adequate control with total cholesterol 140, LDL 65, HDL 54, triglycerides 106. I have asked him to return to the cardiology clinic for routine followup in approximately six months. I have encouraged him to contact me in the meantime should he have any questions or problems. Medications: Current Outpatient Medications: amLODIPine (NORVASC) 2.5 MG tablet, Take 1 tablet (2.5 mg total) by mouth 2 (two) times daily., Disp: 180 tablet, Rfl: 2 apixaban 5 MG tablet, Take 1 tablet (5 mg total) by mouth 2 (two) times daily., Disp: 60 tablet, Rfl: 0 aspirin 81 MG chewable tablet, Chew 1 tablet (81 mg total) by mouth daily., Disp: , Rfl: atorvastatin 80 MG tablet, Take 1 tablet (80 mg total) by mouth nightly at bedtime. Indications: cholesterol, Disp: , Rfl: chlorthalidone (HYGROTEN) 25 MG tablet, TAKE 1 TABLET (25 MG TOTAL) BY MOUTH DAILY., Disp: 90 tablet, Rfl: 2 diphenhydrAMINE-APAP (TYLENOL PM) 25-500 MG Tab tablet, Take 1 tablet by mouth nightly at bedtime.,Disp: , Rfl: docusate sodium (COLACE) 100 MG capsule, Take 1 capsule (100 mg total) by mouth daily., Disp: , Rfl: famotidine (PEPCID) 40 MG tablet, Take 1 tablet (40 mg total) by mouth daily., Disp: , Rfl: FARXIGA 10 MG tablet, Take 1 tablet (10 mg total) by mouth daily., Disp: , Rfl: fluticasone propionate 50 MCG/ACT nasal spray, 1 spray by Each Nostril route as needed. Indications: nasal congestion, Disp: , Rfl: irbesartan (AVAPRO) 300 MG tablet, Take 0.5 tablets (150 mg total) by mouth 2 (two) times daily., Disp: 90 tablet, Rfl: 3 isosorbide mononitrate ER (IMDUR) 30 MG 24 hr tablet, Take 1 tablet (30 mg total) by mouth daily. Take with the 60 mg tablet for a total of 90 mg daily, Disp: 30 tablet, Rfl: 1 isosorbide mononitrate ER (IMDUR) 60 MG 24 hr tablet, Take 1 tablet (60 mg total) by mouth daily., Disp: 90 tablet, Rfl: 3 ketorolac (ACULAR) 0.5 % ophthalmic solution, , Disp: , Rfl: loratadine 10 MG tablet, Take 1 tablet (10 mg total) by mouth daily., Disp: , Rfl: Magnesium 500 MG Cap, Take 1 capsule by mouth daily., Disp: , Rfl: metFORMIN ER 500 MG 24 hr tablet, Take 1 tablet (500 mg total) by mouth daily., Disp: , Rfl: pantoprazole EC (PROTONIX) 40 MG tablet, take 1 tablet by mouth every day at night, Disp: 90 tablet, Rfl: 3 prednisoLONE acetate (PRED FORTE) 1 % ophthalmic suspension, , Disp: , Rfl: predniSONE (DELTASONE) 20 MG tablet, Take 1 tablet (20 mg total) by mouth daily., Disp: , Rfl: rOPINIRole (REQUIP) 1 MG tablet, Take by mouth 2 (two) times daily. 1mg at noon and 2mg at bedtime,Disp: , Rfl: nitroglycerin (NITROSTAT) 0.4 MG SL tablet, Place 1 tablet (0.4 mg total) under the tongue every 5 (five) minutes as needed for Chest Pain. Indications: chest pain, Disp: 25 tablet, Rfl: 1 Review of patient's allergies indicates: No Known Allergies Past Medical History[1] Past Surgical History[2] Social History[3] Family History[4] Family Status Relation Name Status Mother Father MGM MGF PGM PGF No partnership data on file Review of Systems Constitutional: Negative for recent unintentional weight gain, recent unintentional weight loss andnew or significant fatigue. HENT: Negative for new or significant hearing loss. Eyes: Negative for blurred vision and double vision. Respiratory: Positive for shortness of breath. Negative for cough and snoring. Cardiovascular: See HPI. Positive for leg swelling and light-headedness. Gastrointestinal: Negative for blood in stool and melena. Genitourinary: Negative for dysuria. Musculoskeletal: Positive for joint stiffness/pain. Negative for myalgias. Skin: Negative for rash. Neurological: Positive for focal weakness. Negative for tingling/numbness. Endo/Heme/Allergies: Negative for new or significant bruising/bleeding and polydipsia. Psychiatric/Behavioral: Negative for depression and new or significant memory loss. Filed Vitals: 09/15/24 0954 BP: 134/62 Pulse: 74 Resp: 18 Weight: 98.9 kg (218 lb) Height: 1.778 m (5' 10 ) Cardiac Exam Rate/Rhythm: Normal rate. An irregularly irregular rhythm present. PMI: Pulses: Dorsalis pedis pulses are 1+ on the right side and 1+ on the left side. Posterior tibial pulses are 1+ on the right side and 1+ on the left side. Heart Sounds: Normal heart sounds. Normal S1 sounds. Normal S2 sounds. No gallop present. No S3. NoS4. Murmurs: No murmur present Edema left: 0. Edema Right: 0. Physical Exam Constitutional: No distress. Healthy Appearance. HENT: Oropharynx clear. Eyes: Pupils equal, round, and reactive to light. Conjunctivae normal. Neck: Neck supple. No JVD. Abdomen: Abdomen soft. Bowel sounds normal. No distension. No tenderness. No abdominal bruit present. Pulmonary: Effort normal. Breath sounds normal. Skin: Dry. Warm. No rash. No jaundice. No cyanosis. No clubbing. No xanthoma. Musculoskeletal: No kyphosis. Normal ROM. Neurological: Alert. Oriented x 3. Appropriate mood and affect. Comments: Right chest port Diagnoses/Impression: 1. Pre-operative cardiovascular examination 2. Coronary artery disease involving ag[place] coronary artery of [place] heart without angina pectorisUSE ECHOCARDIOGRAM 3. Shortness of breath USE ECHOCARDIOGRAM 4. Longstanding persistent atrial fibrillation ([facility]) 5. Bilateral carotid artery stenosis 6. Essential (primary) hypertension USE ECHOCARDIOGRAM 7. Mixed hyperlipidemia Referring Provider: No ref. provider found PCP: KAIDEN CALHOUN DO [1] Past Medical History: Diagnosis Date Anemia Arthritis Cancer ([facility]) prostate cancer observation Carotid artery disease Colon cancer ([facility]) Coronary artery disease Diabetes mellitus ([facility]) borderline diabetes DVT of lower extremity, bilateral ([facility]) GERD (gastroesophageal reflux disease) History of blood transfusion Hypertension Kidney stone Obstructive sleep apnea syndrome 01/07/2016 Other and unspecified hyperlipidemia Prostate cancer ([facility]/HCC) Pulmonary embolism (CMS/HCC HHS/HCC) [2] Past Surgical History: Procedure Laterality Date CABG, ARTERY-VEIN, SIX+ 07/27/1992 CABG x 7 CARDIAC CATHETERIZATION Bilateral 10/11/2021 Rt. Fem approach / carotid exam as well: Lt Int. Carotid, Ostial les. 70-80% stenosis w evidence ofplaque ulceration; Aortic arch; Mod. placque; Subclavian and carotid arteries orginate from normal positions off the aortic arch. CARDIAC CATHETERIZATION 11/17/2022 saph. vein graft to the distal right coronary, from the aorta: mid-graft lesion: 95% in stent recurrent stenosis CAROTID ENDARTERECTOMY Bilateral 06/22/2019 at different COLONOSCOPY FLX DX W/COLLJ SPEC WHEN PFRMD HC IVC FILTER 07/29/2019 HEART CATH 01/17/2016 IR FILTER REMOVAL 12/27/2019 LEFT HEART CATH,PERCUTANEOUS 12/16/2023 OTHER PROCEDURE 12/2020 Prostatatectomy PART REMOVAL COLON W ANASTOMOSIS 11/02/2023 XA CORONARY INTERVENTION 11/23/2019 THERESE-SVG-RCA XA CORONARY INTERVENTION 04/20/2008 THERESE-SVG-RCA XA CORONARY INTERVENTION 09/11/2014 THERESE-SVG-RCA XA CORONARY INTERVENTION 03/10/2009 THERESE-SVG-RCA XA CORONARY INTERVENTION 08/03/2020 PCI of SVG to RCA XA CORONARY INTERVENTION 02/25/2022 PCI on the instent recurrent stenosis in the distal third of the saphenous vein graft to the prox. RCA [3] Social History Tobacco Use Smoking status: Never Smokeless tobacco: Never Substance Use Topics Alcohol use: Yes Comment: rarely Drug use: No [4] Family History Problem Relation Name Age of Onset Coronary artery disease Mother 59 Positive for coronary artery disease Coronary artery disease Father 66 Positive for coronary artery disease documented in this encounter Plan of Treatment Upcoming Encounters Date Type Department Care Team (Late st Contact Info) Description 10/05/2024 9:[address] [facility] [address] [place] [address] Teresa Morin APRN, RESIDENT SERVICES MANAGER-C [address] [facility] [place] [address] 12/27/2024 9:30 AM CDT Appointment [facility] [address] [place] [address] Ang Hudson MD [address] [facility], [address] [place] [address] 06/02/2025 10:00 AM HEEL SEAT FILLER Office Visit [facility] [address] [place] [address] Teresa Morin, NEUROPSYCHOLOGY DIVISION CHIEF, RESIDENT SERVICES MANAGER-C [address] [facility] [address] [place] [address] Pending Results Name Type Priority Associated Diagnoses Date /Time ELECTROCARDIOGRAM EKG-NonRad Routine Pre-operative cardiovascular examination Coronary artery disease involving ag[place] coronary artery of ag[place] heart without angina pectoris Shortness of breath Longstanding persistent atrial fibrillation (CMS/HCC HHS/HCC) Bilateral carotid artery stenosis Essential (primary) hypertension Mixed hyperlipidemia 09/15/2024 10:00 AM CDT Scheduled Orders Name Type Priority Associated Diagnoses Orde r Schedule USE ECHOCARDIOGRAM ECHO Routine Coronary artery disease involving ag[place] coronary artery of ag[place] heart without angina pectoris Essential (primary) hypertension Shortness of breath Expected: 09/15/2024, Expires: 09/15/2025 documented as of this encounter Goals Goal Patient Goal Type Associated Problems Recent Progress Patient-Stated? Author Safety Patient/family will have appropriate support at home upon discharge General No Mikaela Jinag, RN Patient will return to prior living situation and remain independent in ADLs upon discharge from hospital Lifestyle No Nelida Muniz RN documented as of this encounter Procedures Procedure Name Priority Date/Time Associated Diagnosis Comments ELECTROCARDIOGRAM (NON MIDMARK ACQUIRED) Routine 09/15/2024 10:00 AM CDT Pre-operative cardiovascular examination Coronary artery disease involving ag[place] coronary artery of ag[place] heart without angina pectoris Shortness of breath Longstanding persistent atrial fibrillation (CMS/HCC HHS/HCC) Bilateral carotid artery stenosis Essential (primary) hypertension Mixed hyperlipidemia Procedure Note - 09/15/2024 10:00 AM CDTThis note is in progress. [facility] [address] [place] [address] Test Date: 2024-09-15 Pat Name: GIDEON MILLER Department: 105 Room: Gender: Male Leader Tier: lindy : 1950 Requested By: BOB HERNANDEZ Order Number: [id number] Reading MD: BOB HERNANDEZ Measurements Intervals [place] Rate: 74 P: 0 MS: 0 QRS: 19 QRSD: 92 T: 28 QT: 399 QTc: 444 Interpretive Statements ATRIAL FIBRILLATION LOW QRS VOLTAGE IN PRECORDIAL LEADS MODERATE ST DEPRESSION documented in this encounter Visit Diagnoses Diagnosis Pre-operative cardiovascular examination- Primary Coronary artery disease involving ag[place] coronary artery of [place] heart without angina pectoris Shortness of breath Longstanding persistent atrial fibrillation (CMS/HCC HHS/HCC) Bilateral carotid artery stenosis Occlusion and stenosis of multiple and bilateral precerebral arteries without mention of cerebral infarction Essential (primary) hypertension Unspecified essential hypertension Mixed hyperlipidemia documented in this encounter Care Teams Airway Traffic Controller Relationship Specialty Start Date End Date Kaiden Calhoun DO [address] [place] [address] PCP - General FAMILY PRACTICE 11/12/22 Teresa Morin APRN, RESIDENT SERVICES MANAGER-C [address] [address] NURSE PRACTITIONER 12/01/19 Ang Hudson MD [address] [address] Vascular/Vp Software INTERNAL MEDICINE 01/05/20 Matteo Denise MD [address] [place], [place] [address] Consulting Physician ORTHOPAEDIC SURGERY 07/06/23 Jonelle Deluna MD [address] [place] [address] COLON/RECTAL SURGERY 10/06/23 Houston Beaver MD [address] [place] [address] Consulting Physician INTERVENTIONAL CARDIOLOGY 05/25/24 documented as of this encounter
--- OUTSIDE RECORDS SUMMARY | 2024-09-16 00:12 | XMS_ITS | Encounter Summary ---
Author Organization [facility] Address [address] [place] [address] Care Team Providers Care Security Alarm Technician Name Role Phone Chintan Spears MD Unavailable [phone] Angela Miramontes Unavailable [phone] Cabrera Crouch MD Unavailable [phone] Teresa Morin APRN, NP-C Unavailable Ang Hudson MD Unavailable Kaiden Marshall DO Primary Care Provider [phone] Kaiden Marshall DO Primary Care Provider [phone] Matteo Denise MD Unavailable [phone] Jonelle Deluna MD Unavailable [phone] Houston Beaver MD Unavailable [phone] Encounter Details Date Type Department Care Team (Late st Contact Info) Description 05/01/2022 Abstract [facility] [address] [place] [phone] Chintan Spears MD [address] [place] [address] Social History Tobacco Use Types Packs/Day Years Used Date Smoking Tobacco: Never Smokeless Tobacco: Never Alcohol Use Standard Drinks/Week Comments Yes 0 (1 standard drink = 0.6 oz pur e alcohol) rarely Sex and Gender Information Value Date Recorded Sex Assigned at Male 05/25/2024 9:04 AM PERSONAL LINES APPRAISER Legal Sex Male 9:59 PM CDT Gender [...] Coronavirus/COVID-19? No / Unsure 04/28/2022 12:10 PM PERSONAL LINES APPRAISER documented as of this encounter Functional Status [...] Assessment Author Status No 01/07/2022 3:00 PM CARENT Branden Victor RN Active * Because of [...] Appointment [facility] [address] [place] [address] Teresa Morin, PETROLOGIST, ACCOUNTANT BUDGET-C [address] [facility] [address] [place] [address] 12/27/2024 9:[address] [facility] [address] [place] [address] Ang Hudson MD [address] [facility] [place] [address] 06/02/2025 10:00 AM PERSONAL LINES APPRAISER Office Visit [facility] eld [address] [place] [address] Teresa Morin, PETROLOGIST, ACCOUNTANT BUDGET-C [address] [facility] [address] [place] [address] documented as of this encounter [...] HEMOGLOBIN AND HEMATOCRIT Routine 04/29/2022 3:49 PM PERSONAL LINES APPRAISER HEMOGLOBIN AND HEMATOCRIT Routine 04/29/2022 12:25 PM PERSONAL LINES APPRAISER HEMOGLOBIN AND HEMATOCRIT Routine 04/29/2022 8:15 AM PERSONAL LINES APPRAISER documented in this encounter Results * HEMOGLOBIN AND HEMATOCRIT (04/29/2022 3:49 PM PERSONAL LINES APPRAISER) HGB 8.6 12.4 - 15.3 HCT 27.7 37.0 - 46.0 04/29/2022 3:49 PM PERSONAL LINES APPRAISER us Default History Genericprovider LABORATORY Final Result * HEMOGLOBIN AND HEMATOCRIT (04/29/2022 12:25 PM PERSONAL LINES APPRAISER) HGB 7.3 12.4 - 15.3 HCT 25.0 37.0 - 46.0 04/29/2022 12:2 5 PM PERSONAL LINES APPRAISER us Default History Genericprovider LABORATORY Final Result * HEMOGLOBIN AND HEMATOCRIT (04/29/2022 8:15 AM PERSONAL LINES APPRAISER) HGB 6.2 12.4 - 15.3 HCT 21.2 37.0 - 46.0 04/29/2022 8:15 AM PERSONAL LINES APPRAISER us Default History Genericprovider LABORATORY Final Result documented in this encounter Visit Diagnoses Not on filedocumented in this encounter Care Teams Security Alarm Technician Relationship Specialty Start Date End Date Kaiden Marshall DO [address] [place] [address] PCP - General FAMILY PRACTICE 10/15/21 11/11/22 Kaiden Marshall DO [address] [place] [address] PCP - General FAMILY PRACTICE 11/12/22 Chintan Spears MD [address] [place] [address] [place] Filter Press Supervisor CARDIOVASCULAR DISEASE 01/03/16 12/20/23 Angela Miramontes AGACNP-BC [address] [address] NURSE PRACTITIONER 07/07/19 07/05/23 Cabrera Crouch MD [address] [address] CARDIOTHORACIC SURGERY 10/26/19 4 Teresa Morin APRN, ACCOUNTANT BUDGET-C [address] [facility] [address] [place] [address] NURSE PRACTITIONER 12/01/19 Ang Hudson MD [address] [facility] [address] [place] [address] Vascular/Filter Press Supervisor INTERNAL MEDICINE 01/05/20 Matteo Denise MD [address] [place] [address] Consulting Physician ORTHOPAEDIC SURGERY 07/06/23 Jonelle Deluna MD [address] [place] [address] COLON/RECTAL SURGERY 10/06/23 Houston Beaver MD [address] [place] [address] Consulting Physician INTERVENTIONAL CARDIOLOGY 05/25/24 documented as of this encounter
--- OUTSIDE RECORDS SUMMARY | 2024-09-16 00:12 | XMS_ITS | Encounter Summary ---
Author Organization [facility] Address [address] [place] [address] Care Team Providers Care Credit Historian Name Role Phone Teresa Morin APRN, NP-C Unavailable [phone] Ang Hudson MD Unavailable Kaiden Marshall DO Primary Care Provider [phone] Matteo Denise MD Unavailable [phone] Jonelle Deluna MD Unavailable Houston Beaver MD Unavailable [phone] Encounter Details Date Type Department Care Team (Latest Contact Info) Description 09/15/2024 Travel Social History Tobacco Use Types Packs/Day Years Used Date Smoking Tobacco: Never Smokeless Tobacco: Never Alcohol Use Standard Drinks/Week Comments Yes 0 (1 standard drink = 0.6 oz pur e alcohol) rarely Sex and Gender Information Value Date Recorded Sex Assigned at Male 05/25/2024 9:04 AM VP CLINICAL RESEARCH Legal Sex Male 9:59 PM CDT Gender [...] Eng RN Active documented in this encounter Plan of Treatment Upcoming Encounters Date Type Department Care Team (Late st Contact Info) Description 10/05/2024 9:00 AM CDT Appointment [facility] [address] [place] [address] Teresa Morin APRN, NON EMERGENCY SERVICES AMBULANCE DRIVER-C [address] [phone] 12/27/2024 9:30 AM CDT Appointment [facility] [address] [place] [address] Ang Hudson MD [address] [facility], [address] [place] [address] 06/02/2025 10:00 AM VP CLINICAL RESEARCH [facility] [address] [place] [address] Teresa Morin APRN, NON EMERGENCY SERVICES AMBULANCE DRIVER-C [address] [phone] documented as of this encounter Goals Goal [...] on filedocumented in this encounter Care Teams Credit Historian Relationship Specialty Start Date End Date Kaiden Marshall DO [address] [place] [address] PCP - General FAMILY PRACTICE 11/12/22 Teresa Morin APRN, NON EMERGENCY SERVICES AMBULANCE DRIVER-C [address] [address] NURSE PRACTITIONER 12/01/19 Ang Hudson MD [address] [place] [address] Vascular/Order Booker INTERNAL MEDICINE 01/05/20 Matteo Denise MD [address] [place] [address] Consulting Physician ORTHOPAEDIC SURGERY 07/06/23 Joenlle Deluna MD [address] [place] [address] COLON/RECTAL SURGERY 10/06/23 Houston Beaver MD [address] [place] [address] Consulting Physician INTERVENTIONAL CARDIOLOGY 05/25/24 documented as of this encounter
--- OUTSIDE RECORDS SUMMARY | 2024-09-16 00:12 | XMS_ITS | Encounter Summary ---
Author Organization [facility] Address [address] [place] [address] Care Team Providers Care Drill Rig Operator Name Role Phone Chintan Spears MD Unavailable [phone] Angela Miramontes Unavailable [phone] Cabrera Crouch MD Unavailable [phone] Teresa Morin APRN, NP-C Unavailable Ang Hudson MD Unavailable Kaiden Marshall DO Primary Care Provider [phone] Kaiden Marshall DO Primary Care Provider [phone] Matteo Denise MD Unavailable [phone] Jonelle Deluna MD Unavailable [phone] Houston Beaver MD Unavailable [phone] Encounter Details Date Type Department Care Team (Late st Contact Info) Description 03/03/2022 Abstract [facility] [address] [place] [phone] Chintan Spears MD [address] [place] [address] Social History Tobacco Use Types Packs/Day Years Used Date Smoking Tobacco: Never Smokeless Tobacco: Never Alcohol Use Standard Drinks/Week Comments Yes 0 (1 standard drink = 0.6 oz pur e alcohol) rarely Sex and Gender Information Value Date Recorded Sex Assigned at Male 05/25/2024 9:04 AM JOB TRAINING SUPERVISOR Legal Sex Male 9:59 PM CDT Gender [...] [facility]ointment [facility] [address] [place] [address] Teresa Morin, LUNCHROOM FOOD SERVICE SUPERVISOR, ROOM SERVICE ASSOCIATE-C [address] [facility] [address] [place] [address] 12/27/2024 9:30 AM CDT Appointment [facility] [address] [place] [address] Ang Hudson MD [address] [facility], [address] [place], [place] [address] 06/02/2025 10:00 AM JOB TRAINING SUPERVISOR Office Visit [facility] [address] [place] [address] Teresa Morin, ALLY, ROOM SERVICE ASSOCIATE-C [address] [facility] [address] [place] [address] documented as of this encounter [...] on filedocumented in this encounter Care Teams Drill Rig Operator Relationship Specialty Start Date End Date Kaiden Marshall DO [address] [place] [address] PCP - General FAMILY PRACTICE 10/15/21 11/11/22 Kaiden Marshall DO [address] [place] [address] PCP - General FAMILY PRACTICE 11/12/22 Chintan Spears MD [address] [place] [address] [facility] Interactive Project Manager CARDIOVASCULAR DISEASE 01/03/16 12/20/23 Angela Miramontes AGACNP- [address] [address] NURSE PRACTITIONER 07/07/19 07/05/23 Cabrera Crouch MD [address] [address] CARDIOTHORACIC SURGERY 10/26/19 4 Teresa Morin, LUNCHROOM FOOD SERVICE SUPERVISOR, ROOM SERVICE ASSOCIATE-C [address] [facility] [address] [place] [address] NURSE PRACTITIONER 12/01/19 Ang Hudson MD [address] [facility] [address] [place] [address] Vascular/Interactive Project Manager INTERNAL MEDICINE 01/05/20 [place] [address] [place] [address] Consulting Physician ORTHOPAEDIC SURGERY 07/06/23 Jonelle Deluna MD 1 [place] [address] COLON/RECTAL SURGERY 10/06/23 Houston Beaver MD [address] [place] [address] Consulting Physician INTERVENTIONAL CARDIOLOGY 05/25/24 documented as of this encounter
--- OUTSIDE RECORDS SUMMARY | 2024-09-16 00:12 | XMS_ITS | Encounter Summary ---
Author Organization [facility] Address [address] [place] [address] Care Team Providers Care Speech Pathology Supervisor Name Role Phone Rita Lee MD Primary Care Provider Chintan Martinez MD Unavailable [phone] Pérez Herr MD Primary Care Provider [phone] Giuseppe Kulkarni MD Primary Care Provider Angela Miramontes [facility] Unavailable [phone] Cabrera Crouch MD Unavailable [phone] Teresa Morin APRN, NP-C Unavailable Ang Hudson MD Unavailable Kaiden Marshall DO Primary Care Provider [phone] Kaiden Marshall DO Primary Care Provider [phone] Matteo Denise MD Unavailable [phone] Jonelle Deluna MD Unavailable [phone] Houston Beaver MD Unavailable [phone] Encounter Details Date Type Department Care Team (Late st Contact Info) Description 05/12/2017 Abstract [facility] [address] [place] [address] Chintan Spears MD [address] [place] [address] Social History Tobacco Use Types Packs/Day Years Used Date Smoking Tobacco: Never Smokeless Tobacco: Never Alcohol Use Standard Drinks/Week Comments Yes 0 (1 standard drink = 0.6 oz pur e alcohol) Occasionally Sex and Gender Information Value Date Recorded Sex Assigned at Male 05/25/2024 9:04 AM CITY SECRETARY Legal Sex Male 9:59 PM CDT Gender Identity Not on file Sexual Orientation Not on file Occupation Industry Job Start Date Job End Date Retired Not on file Not on file Not on file documented as of this encounter Plan of Treatment Upcoming Encounters Date Type Department Care Team (Late st Contact Info) Description 10/05/2024 9:00 AM CDT Appointment [facility] [address] [place] [address] Teresa Morin APRN, COMMERCIAL REAL ESTATE LENDER-C [address] [phone] 12/27/2024 9:[address] [facility] [address] [place] [address] Ang Hudson MD [address] [facility], [address] [place], [place] [address] 06/02/2025 10:00 AM CITY SECRETARY [facility] [address] [place] [address] Teresa Morin APRN, COMMERCIAL REAL ESTATE LENDER-C [address] [phone] documented as of this encounter Procedures Procedure [...] documented as of this encounter Care Teams Speech Pathology Supervisor Relationship Specialty Start Date End Date Rita Lee MD PCP - General SURGERY 01/03/16 11/15/18 Pérez Herr MD [address] [place] [address] PCP - General FAMILY PRACTICE 11/16/18 06/08/19 Giuseppe Kulkarni MD [address] [facility] [address] [place] [address] PCP - General FAMILY PRACTICE 06/09/19 10/14/21 Kaiden Marshall DO [address] [place] [address] PCP - General FAMILY PRACTICE 10/15/21 11/11/22 Kaiden Marshall DO [address] [place] [address] PCP - General FAMILY PRACTICE 11/12/22 Chintan Spears MD [address] [place] [address] [place] Supply Planner CARDIOVASCULAR DISEASE 01/03/16 12/20/23 Angela Miramontes AGACNP-BC [address] [address] NURSE PRACTITIONER 07/07/19 07/05/23 Cabrera Crouch MD [address] [address] CARDIOTHORACIC SURGERY 10/26/19 4 Teresa Morin APRN, COMMERCIAL REAL ESTATE LENDER-C [address] [facility] [address] [phone] NURSE PRACTITIONER 12/01/19 Ang Hudson MD [address] [phone] Vascular/Supply Planner INTERNAL MEDICINE 01/05/20 Matteo Denise MD [address] [place] [address] Consulting Physician ORTHOPAEDIC SURGERY 07/06/23 Jonelle Deluna MD 1 [place] [address] COLON/RECTAL SURGERY 10/06/23 Houston Beaver MD [address] [place] [address] Consulting Physician INTERVENTIONAL CARDIOLOGY 05/25/24 documented as of this encounter
--- OUTSIDE RECORDS SUMMARY | 2024-09-16 00:12 | XMS_ITS | Encounter Summary ---
Author Organization [facility] Address [address] [place] [address] Care Team Providers Care Public Relations Senior Associate Name Role Phone Chintan Spears MD Unavailable [phone] Angela Miramontes- Unavailable [phone] Cabrera Crouch MD Unavailable [phone] Teresa Morin APRN, NP-C Unavailable Ang Hudson MD Unavailable Kaiden Marshall DO Primary Care Provider Matteo Denise MD Unavailable [phone] Jonelle Deluna MD Unavailable Houston Beaver MD Unavailable Encounter Details Date Type Department Care Team (Late st Contact Info) Description 12/29/2022 Abstract [facility] [address] [place] [address] Chintan Spears MD [address] [place] [address] Social History Tobacco Use Types Packs/Day Years Used Date Smoking Tobacco: Never Smokeless Tobacco: Never Tobacco Cessation:Counseling Given: Not Answered Alcohol Use Standard Drinks/Week Comments Yes 0 (1 standard drink = 0.6 oz pur e alcohol) rarely Sex and Gender Information Value Date Recorded Sex Assigned at Male 05/25/2024 9:04 AM JAVA SYBASE DEVELOPER Legal Sex Male 9:59 PM CDT [...] Date Author Status No 01/07/2022 3:00 PM Branden Azevedo RN Active documented in this encounter Plan of Treatment Upcoming Encounters Date Type Department Care Team (Late st Contact Info) Description 10/05/2024 9:[address] [facility] [address] [place] [address] Teresa Morin, WELDER MANUFACTURE, CERTIFIED MEDICATION TECHNICIAN-C [address] [facility] [address] [address] 12/27/2024 9:[address] [facility] [address] [place] [address] Ang Hudson MD [address] [facility], [address] [place] [address] 06/02/2025 10:00 AM JAVA SYBASE DEVELOPER Office Visit [facility] [address] [place] [address] Teresa Morin APRN, CERTIFIED MEDICATION TECHNICIAN-C [address] [facility] [address] [place] [address] documented as of this encounter [...] on filedocumented in this encounter Care Teams Public Relations Senior Associate Relationship Specialty Start Date End Date Kaiden Marshall DO [address] [place] [address] PCP - General FAMILY PRACTICE 11/12/22 Chintan Spears MD [address] [place] [address] [place] Stock Wetter CARDIOVASCULAR DISEASE 01/03/16 12/20/23 Angela [facility]ontes [facility] [address] [address] NURSE PRACTITIONER 07/07/19 07/05/23 Cabrera Crouch MD [address] [address] CARDIOTHORACIC SURGERY 10/26/19 4 Teresa Morin APRN, CERTIFIED MEDICATION TECHNICIAN-C [address] [facility] [address] [place] [address] NURSE PRACTITIONER 12/01/19 Ang Hudson MD [address] [facility] [address] [place] [address] Vascular/Stock Wetter INTERNAL MEDICINE 01/05/20 Matteo Denise MD [address] [place] [address] Consulting Physician ORTHOPAEDIC SURGERY 07/06/23 Jonelle Deluna MD 1 [place] [address] COLON/RECTAL SURGERY 10/06/23 Houston Beaver MD 1 [place] [address] Consulting Physician INTERVENTIONAL CARDIOLOGY 05/25/24 documented as of this encounter
--- OUTSIDE RECORDS SUMMARY | 2024-09-16 00:12 | XMS_ITS | Encounter Summary ---
Author Organization [facility] Address [address] [place] [address] Care Team Providers Care Wig Comber Name Role Phone Teresa Morin APRN, NP-C Unavailable Ang Hudson MD Unavailable Kaiden Marshall DO Primary Care Provider [phone] Matteo Denise MD Unavailable [phone] Jonelle Deluna MD Unavailable Houston Beaver MD Unavailable Encounter Details Date Type Department Care Team (Late st Contact Info) Description 09/15/2024 [facility] Only [facility] [address] [place] [address] Marciano Yeager MD [address] [place] [address] Social History Tobacco Use Types Packs/Day Years Used Date Smoking Tobacco: Never Smokeless Tobacco: Never Alcohol Use Standard Drinks/Week Comments Yes 0 (1 standard drink = 0.6 oz pur e alcohol) rarely Sex and Gender Information Value Date Recorded Sex Assigned at Male 05/25/2024 9:04 AM PLASTIC SURGERY SPECIALIST Legal Sex Male 9:59 PM CDT [...] 9:[address] [facility] [place] [address] [place] [address] Teresa Morin, TOBACCO SAMPLER, SECURITY ASSURANCE SPECIALIST-C [address] [facility] [address] [place] [address] 12/27/2024 9:[address] [facility] [place] [address] [place] [address] Ang Hudson MD [address] [facility], [address] [place] [address] 06/02/2025 10:00 AM PLASTIC SURGERY SPECIALIST Office Visit [facility] [address] [place] [address] Teresa Morin APRN, SECURITY ASSURANCE SPECIALIST-C [address] [phone] Pending Results Name Type Priority Associated Diagnoses Date /Time ELECTROCARDIOGRAM EKG-NonRad Routine Pre-operative cardiovascular examination Coronary artery disease involving [place] coronary artery of [place] heart without angina pectoris Shortness of breath Longstanding persistent atrial fibrillation ([facility]/HCC HHS/HCC) Bilateral carotid artery stenosis Essential (primary) hypertension Mixed hyperlipidemia 09/15/2024 10:00 AM CDT documented as of this encounter Goals Goal Patient Goal Type Associated Problems Recent Progress Patient-Stated? Author Safety Patient/family will have appropriate support at home upon discharge General Mikaela Miramontes, RN Patient will return to prior living situation and remain independent in ADLs upon discharge from hospital Lifestyle No Nelida Muniz RN documented as of this encounter Visit Diagnoses Diagnosis Coronary artery disease involving [place] coronary artery of [place] heart without angina pectoris- Primary Mixed hyperlipidemia Essential (primary) hypertension Unspecified essential hypertension Bilateral carotid artery stenosis Occlusion and stenosis of multiple and bilateral precerebral arteries without mention of cerebral infarction Pre-operative cardiovascular examination documented in this encounter Care Teams Wig Comber Relationship Specialty Start Date End Date Kaiden Marshall DO [address] [place] [address] PCP - General FAMILY PRACTICE 11/12/22 Teresa Morin APRN, SECURITY ASSURANCE SPECIALIST-C [address] [phone] NURSE PRACTITIONER 12/01/19 Ang Hudson MD [address] [phone] Vascular/Soda Flaker INTERNAL MEDICINE 01/05/20 Matteo Denise MD [address] [place] [address] Consulting Physician ORTHOPAEDIC SURGERY 07/06/23 Jonelle Deluna MD [address] [place] [address] COLON/RECTAL SURGERY 10/06/23 Houston Beaver MD [address] [place] [address] Consulting Physician INTERVENTIONAL CARDIOLOGY 05/25/24 documented as of this encounter
--- OUTSIDE RECORDS SUMMARY | 2024-09-16 00:12 | XMS_ITS | Encounter Summary ---
Author Organization [facility] Address [address] [place] [address] Care Team Providers Care Spa Manager/Esthetician Name Role Phone Chintan Spears MD Unavailable [phone] Angela Miramontes Unavailable [phone] Cabrera Crouch MD Unavailable [phone] Teresa Morin APRN, NP-C Unavailable [phone] Ang Hudson MD Unavailable Kaiden Marshall DO Primary Care Provider [phone] Kaiden Marshall DO Primary Care Provider [phone] Matteo Denise MD Unavailable [phone] Jonelle Deluna MD Unavailable [phone] Houston Beaver MD Unavailable [phone] Encounter Details Date Type Department Care Team (Late st Contact Info) Description 01/15/2022 Hospital Follow-up Call [facility] Care Unit [address] [place] [address] Lola Barillas RN Social History Tobacco Use Types Packs/Day Years Used Date Smoking Tobacco: Never Smokeless Tobacco: Never Alcohol Use Standard Drinks/Week Comments Yes 0 (1 standard drink = 0.6 oz pur e alcohol) rarely Sex and Gender Information Value Date Recorded Sex Assigned at Male 05/25/2024 9:04 AM DIRECTOR Legal Sex Male 9:59 PM CDT Gender [...] CDT [facility]ointment [facility] [address] [place] [address] Teresa Morin, WAD COMPRESSOR OPERATOR ADJUSTER, SCRAP CUTTER-C [address] [facility] [address] [place] [address] 12/27/2024 9:[address] [facility] [address] [place] [address] Ang Hudson MD [address] [facility] [address] [place] [address] 06/02/2025 10:00 AM DIRECTOR Office Visit [facility] [address] [place] [address] Teresa Morin APRN, SCRAP CUTTER-C [address] [facility] [address] [place] [address] documented as of this encounter [...] on filedocumented in this encounter Care Teams Spa Manager/Esthetician Relationship Specialty Start Date End Date Kaiden Marshall DO [address] [place] [address] PCP - General FAMILY PRACTICE 10/15/21 11/11/22 Kaiden Marshall DO [address] [place] [address] PCP - General FAMILY PRACTICE 11/12/22 Chintan Spears MD [address] [place] [address] [place]enn[place] Multi Disciplined Language Analyst CARDIOVASCULAR DISEASE 01/03/16 12/20/23 Angeal Miramontes AGACNP-BC [address] [place], [place] [address] NURSE PRACTITIONER 07/07/19 07/05/23 Cabrera Crouch MD [address] [address] CARDIOTHORACIC SURGERY 10/26/19 4 Teresa Morin APRN, SCRAP CUTTER-C [address] [place] [address] NURSE PRACTITIONER 12/01/19 Ang Hudson MD [address] [place] [address] Vascular/Multi Disciplined Language Analyst INTERNAL MEDICINE 01/05/20 Matteo Denise MD [address] [place] [address] Consulting Physician ORTHOPAEDIC SURGERY 07/06/23 Jonelle Deluna MD [address] [place] [address] COLON/RECTAL SURGERY 10/06/23 Houston Beaver MD [address] [place] [address] Consulting Physician INTERVENTIONAL CARDIOLOGY 05/25/24 documented as of this encounter
--- OUTSIDE RECORDS SUMMARY | 2024-09-16 00:12 | XMS_ITS | Clinical Summary ---
Author Organization [facility] Address [address] [place] [address] Care Team Providers Care Computer Support Specialist Name Role Phone Teresa Morin APRN, NP-C Unavailable Ang Hudson MD Unavailable Kaiden Marshall DO Primary Care Provider [phone] Matteo Denise MD Unavailable [phone] Jonelle Deluna MD Unavailable [phone] Houston Beaver MD Unavailable [phone] Allergies No known active allergies Medications atorvastatin 80 MG tabletIndicatio ns:cholesterol Take 1 tablet (80 mg total) by mouth nightly at bedtime. Indications: cholesterol 06/13/19 12 Active fluticasone propionate 50 MCG/ACT nasal sprayIndication s:nasal congestion 1 spray by Each Nostril route as needed. Indications: nasal congestion 08/10/19 20 Active apixaban 5 MG tablet Take 1 tablet (5 mg total) by mouth 2 (two) times daily. 60 tablet 08/08/19 20 Active metFORMIN ER 500 MG 24 hr tablet Take 1 tablet (500 mg total) by mouth daily. 07/10/19 21 Active loratadine 10 MG tablet Take 1 tablet (10 mg total) by mouth daily. Active famotidine (PEPCID) 40 MG tablet Take 1 tablet (40 mg total) by mouth daily. Active docusate sodium (COLACE) 100 MG capsule Take 1 capsule (100 mg total) by mouth daily. 04/18/20 22 Active rOPINIRole (REQUIP) 1 MG tablet Take by mouth 2 (two) times daily. 1mg at noon and 2mg at bedtime 06/25/19 23 Active diphenhydrAMINE -APAP (TYLENOL PM) 25-500 MG Tab tablet Take 1 tablet by mouth nightly at bedtime. Active Magnesium 500 MG Cap Take 1 capsule by mouth daily. 07/10/19 23 Active FARXIGA 10 MG tablet Take 1 tablet (10 mg total) by mouth daily. 07/10/19 24 Active nitroglycerin (NITROSTAT) 0.4 MG SL tabletIndicatio ns:chest pain Place 1 tablet (0.4 mg total) under the tongue every 5 (five) minutes as needed for Chest Pain. Indications: chest pain 25 tablet 1 11/18/19 24 Active pantoprazole EC (PROTONIX) 40 MG tablet take 1 tablet by mouth every day at night 90 tablet 3 11/26/19 24 Active aspirin 81 MG chewable tablet Chew 1 tablet (81 mg total) by mouth daily. Active isosorbide mononitrate ER (IMDUR) 60 MG 24 hr tablet Take 1 tablet (60 mg total) by mouth daily. 90 tablet 3 12/16/19 24 Active amLODIPine (NORVASC) 2.5 MG tablet Take 1 tablet (2.5 mg total) by mouth 2 (two) times daily. 180 tablet 2 02/22/20 24 Active chlorthalidone (HYGROTEN) 25 MG tablet TAKE 1 TABLET (25 MG TOTAL) BY MOUTH DAILY. 90 tablet 2 06/02/19 25 Active irbesartan (AVAPRO) 300 MG tablet Take 0.5 tablets (150 mg total) by mouth 2 (two) times daily. 90 tablet 3 09/06/19 25 Active ketorolac (ACULAR) 0.5 % ophthalmic solution 09/15/19 25 Active prednisoLONE acetate (PRED FORTE) 1 % ophthalmic suspension 09/14/19 25 Active predniSONE (DELTASONE) 20 MG tablet Take 1 tablet (20 mg total) by mouth daily. 09/14/19 25 025 Active isosorbide mononitrate ER (IMDUR) 30 MG 24 hr tablet Take 1 tablet (30 mg total) by mouth daily. Take with the 60 mg tablet for a total of 90 mg daily 30 tablet 1 09/16/19 25 Active irbesartan (AVAPRO) 300 MG tablet TAKE 0.5 TABLETS (150 MG TOTAL) BY MOUTH 2 (TWO) TIMES DAILY. 90 tablet 3 11/26/19 24 025 Discontinued Active Problems Problem Noted Date Diagnosed Date S/p bilateral carotid endarterectomy 10/05/2023 Coronary artery disease invo lving [place] coronary artery of [place] heart 05/02/2023 Iron deficiency anemia 05/12/2022 Ectopic atrial rhythm 01/11/2022 Premature ventricular contractions (PVCs) (VPCs) 01/11/2022 Nonsustained ventricular tachycardia ([facility]) 01/11/2022 AV block 01/11/2022 Carotid artery stenosis 11/14/2021 Longstanding persistent atri al fibrillation ([facility]) 11/04/2021 Symptomatic bradycardia 11/04/2021 On continuous oral anticoagulation 11/04/2021 Exercise intolerance 11/04/2021 Edema of left lower extremity 11/04/2021 Hx of CABG 11/04/2021 Dyspnea on exertion 11/04/2021 Chronic fatigue 11/04/2021 Hx pulmonary embolism 11/04/2021 Episodic lightheadedness 11/04/2021 Elevated PSA 04/20/2020 Overview (05/15/2020): Added automatically from request for surgery [id number] Leg edema 02/28/2020 History of DVT (deep vein thrombosis) 01/10/2020 Atrial fibrillation ([facility]) 11/10/2019 History of pulmonary embolus (PE) 07/26/2019 Acute pulmonary embolism ([facility]) 07/25 Carotid artery stenosis without cerebral infarct [...] mg/dL. Assessment & Plan (04/16/2021 3:05 PM RN FAMILY PRACTICE): Gideon Thorpe remains stable with regard to [...] Mixed hyperlipidemia 01/07/2016 Type 2 diabetes mellitus ([facility]) 01/06 Pulmonary hypertension ([facility]) 016 Cor pulmonale ([facility]) 05/16/2015 SOB (shortness of breath) 11/21/2014 JOSE R (obstructive sleep apnea) 11/14/2014 DVT of lower extremity, bilateral ([facility]) Pulmonary embolism ([facility]) Resolved Problems Problem Noted Date Diagnosed Date Resolved Date Afib ([facility]) 01/07/202201/08 Coronary artery disease invo lving [place] coronary artery of [place] heart with unstable angina pectoris ([facility]) 01/07/2016 05/02/2023 Encounter for preventive health examination 10/31/2014 05/21/2020 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 08/12/2021 Encounters Date Type Department Care Team Description 09/15/2024 10:00 AM CDT Office Visit [facility] [address] [place] [address] Teresa Morin APRN, COMMUNICATIONS EQUIPMENT SUPERVISOR-C Consult (Preop evaluation prior to colonoscopy) 09/15/2024 Telephone [facility] [facility] [address] [place] [address] Teresa Morin APRN, COMMUNICATIONS EQUIPMENT SUPERVISOR-C Information; Surgical Clearance 09/15/2024 Travel 09/15/2024 Orders Only [facility] [address] [place] [address] Bob Yeager MD 09/09/2024 [facility] [address] [place] [address] Radha Ellis NP Surgical Clearance 09/09/2024 [facility] [address] [place] [address] Teresa Morin APRN, COMMUNICATIONS EQUIPMENT SUPERVISOR-C Pre-op Question(s) 07/27/2024 9:42 AM CDT - 07/27/2024 11:59 PM CDT Hospital Encounter [facility] [address] [facility] [address] [place] [address] Bryanna Hall COMMUNICATIONS EQUIPMENT SUPERVISOR Discharge Disposition: Home or Self Care (Routine Discharge) 07/27/[address] [facility] [address] [place] [address] Bryanna Hall NP 07/27/2024 Travel from Last 3 Months Immunizations Immunization Administration Dates Next Due Influenza Adult (Generic) [...] Sex Assigned at Male 05/25/2024 9:04 AM RN FAMILY PRACTICE Legal Sex Male 9:59 PM CDT Gender Identity Not on file Sexual Orientation Not on file Occupation Industry Job Start Date Job End Date Retired Not on file Not on file Not on file Last Filed Vital Signs Vital Sign Reading Time Taken Comments Blood Pressure 134/62 09/15/2024 9:54 AM CDT Pulse 74 09/15/2024 9:54 AM CDT Temperature 36 C (96.8 F) 12/16/2023 8:20 AM CDT Respiratory Rate 18 09/15/2024 9:54 AM CDT Oxygen Saturation 97% 05/25/2024 9:20 AM RN FAMILY PRACTICE Inhaled Oxygen Concentration - - Weight 98.9 kg (218 lb) 09/15/2024 9:54 AM CDT Height 177.8 cm (5' 10 ) 09/15/2024 9:54 AM CDT Body Mass Index 31.28 09/15/2024 9:54 AM CDT Plan of Treatment Upcoming Encounters Date Type Department Care Team (Late st Contact Info) Description 10/05/2024 9:[address] [facility] [address] [place] [address] Teresa Morin, PUBLIC SAFETY POLICE, COMMUNICATIONS EQUIPMENT SUPERVISOR-C [address] [facility] [address] [place] [phone] 12/27/2024 9:30 AM CDT Appointment [facility] [address] [place] [address] Ang Hudson MD [address] [facility], [address] [place] [address] 06/02/2025 10:00 AM RN FAMILY PRACTICE Office Visit [facility] eld [address] [place] [address] Teresa Morin, PUBLIC SAF[employer]Y POLICE, COMMUNICATIONS EQUIPMENT SUPERVISOR-C [address] [facility] [address] [place] [address] Health Maintenance Due Date Last Done Comments ASCVD Statin 1950 Kidney Health Evaluation 1950 Diabetes: Retinopathy Eye Exam 1966 Hepatitis C 1966 DTaP, Tdap and Td Vaccines (1 - Tdap) 12/19/1967 Zoster Vaccines (1 of 2) 1998 Annual Medicare Wellness Visit 2013 Pneumococcal Vaccine: 50+ Years (2 of 2 - PCV) 11/22/2020 11/23/2019, 10/18/2019, 1950 RSV Immunization or 60+ Years (1 - 1-dose 75+ series) 12/19/2023 COVID-19 Vaccine ( season) 2024 02/19/2021, 07/06/2020, 06/15/2020 Hemoglobin A1C 09/07/2024 03/09/2024, 07/0 01/2024, 04/04/2020, [...] discharge from hospital Lifestyle Nelida Golden RN Medical Devices Implanted Type Area Bander Hand Device Identifier Shelf Expiration Date Model / Serial / Lot Graft Patch Hemashield Hegins 0.8cmx7.6cm - [id number] Implanted:Qty: 1 on 11/14/2021 by Cabrera Crouch MD at [facility] Graft Left: Carotid [employer] [id number] 06/10/2024 [id number] / [id number] 20B19 Ashley Xact Carotid Stent- 0 Implanted:06/11 by John Zhang MD (Quantity not on file) Stent Carotid ASHLEY VASCULAR 04/09/2020 [id number] / / [id number] Cv Orsio Svg-Rca Stent- 0 Implanted:Qty: 1 on 11/23/2019 by Nicolás Serrano MD Stent Coronary BIOTRONIK 01/16/2021 [id number] / / [id number] Cv Orsio Svg-Rca Stent- 0 Implanted:11/08 by Nicolás Serrano MD (Quantity not on file) Stent Coronary BIOTRONIK 01/09/2021 [id number] / / [id number] Cv Synergy Chandana Svg-Rca Stent- 1 Implanted:Qty: 1 on 08/03/2020 by Skyler Ramirez MD Stent Coronary [employer]b Networks TAISHA 03/06/2022 [id number] / / [id number] Cv Xience Skypoint 3.5x28 Chandana Svg-Rca- 023 Implanted:Qty: 1 on 11/17/2022 by Cabrera Jacobs MD Stent ASHLEY VASCULAR 08/23/2023 [id number]- / [id number] Graft Patch Hemashield Hegins 0.8cmx7.6cm - [id number] Implanted:Qty: 1 on 06/22/2019 by Cabrera Crouch MD at [facility] Right: Neck CHRIS [employer] 09/08/2023 [id number] E Description:Sewn in graft wi th prolene. Explanted Type Area Bander Hand Device Identifier Shelf Expiration Date Model / Serial / Lot Cv-Ivc Filter Explanted:Qty: 1 on 12/27/2019 by John Zhang MD Filter Inferior Vena Cava Description:IVC Filter Remov ed Procedures Procedure Name Priority Date/Time Associated Diagnosis Comments ELECTROCARDIOGRAM (NON MIDMARK ACQUIRED) Routine 09/15/2024 10:00 AM CDT Pre-operative cardiovascular examination Coronary artery disease involving [place] coronary artery of [place] heart without angina pectoris Shortness of breath Longstanding persistent atrial fibrillation (CMS/HCC HHS/HCC) Bilateral carotid artery stenosis Essential (primary) hypertension Mixed hyperlipidemia Procedure Note - 09/15/2024 10:00 AM CDTThis note is in progress. [facility] [address] [place] [address] Test Date: 2024-09-15 Pat Name: GIDEON THORPE Department: 105 Room: Gender: Male Shingles Roofer: lindy : 1950 Requested By: BOB YEAGER Order Number: [id number] Reading MD: BOB YEAGER Measurements Intervals [place] Rate: 74 P: 0 NM: 0 QRS: 19 QRSD: 92 T: 28 QT: 399 QTc: 444 Interpretive Statements ATRIAL FIBRILLATION LOW QRS VOLTAGE IN PRECORDIAL LEADS MODERATE ST DEPRESSION TESTOSTERONE, TOTAL Routine 07/27/2024 9:52 AM CDT Malignant neoplasm [...] 1.65 <4.00 NG/ML 07/27/2024 10:42 AM CDT [facility] Comment: ASSAY PERFORMED BY [facility] [employer] [employer] USING SIEMENS DIMENSION REAGENT. PATIENT RESULTS DETERMINED BY ASSAYS FROM DIFFERENT MANUFACTURERS AND/OR BY DIFFERENT METHODS MAY NOT BE COMPARABLE. 07/27/2024 9:52 AM CDT Bryanna Hall NP LABORATORY Final Result [facility] [address] [place] [address], * TESTOSTERONE, TOTAL (07/27/2024 9:52 AM CDT) TESTOSTERONE TOTAL 256 250 - 1,100 ng/dL 08/01/2024 12:19 AM CDT [facility] Comment: Men with clinically significant hypogonadal symptoms and testosterone values repeatedly in the range of the 200-300 ng/dL or less, may benefit from testosterone treatment after adequate risk and benefits counseling. For additional information, please refer to http://education.Sidecar.me.SnoopWall/faq/ [email or web address] (This link is being provided for informational/ educational purposes only.) This test was developed and its analytical performance characteristics have been determined by [employer] [place], [place]. It has not been cleared or approved by the U.S. Food and Drug Administration. This assay has been validated pursuant to the CLIA regulations and is used for clinical purposes. Test Performed by [facility], [facility] [place], [address] [place], [place] Antwan Roca M.D., Ph.D., Director of Laboratories , CLIA [id number] 07/27/2024 9:52 AM CDT us Bryanna Hall COMMUNICATIONS EQUIPMENT SUPERVISOR LABORATORY Final Result [facility] [address] [place] [address], [place] [phone] * HEMOGLOBIN, GLYCOSYLATED (03/09/2024) HGB A1C 7.4 % Narrative Resulting Agency Comment [facility] us Default History Genericprovider LABORATORY Final Result * LIPID PANEL (03/09/2024) CHOLESTEROL 140 TRIGLYCERIDES 106 HDL 54 LDL (CALCULATED) 65 Narrative Resulting Agency Comment [facility] us Default History Genericprovider LABORATORY Final Result from Last 3 Months or Most Recently Relevant to Health Maintenance [facility] MEDIC[facility] Advance Directives * Full Code [...] 10:34 AM 08/03/2020 6:50 PM Care Teams Computer Support Specialist Relationship Specialty Start Date End Date Kaiden Marshall DO [facility] [place] [address] PCP - General FAMILY PRACTICE 11/12/22 Teresa Morin APRN, COMMUNICATIONS EQUIPMENT SUPERVISOR-C [address] [place] [address] NURSE PRACTITIONER 12/01/19 Ang Hudson MD [address] [place] [address] Vascular/Employment Services Director INTERNAL MEDICINE 01/05/20 Matteo Denise MD [address] [place] [address] Consulting Physician ORTHOPAEDIC SURGERY 07/06/23 Jonelle Deluna MD [address] [place] [address] COLON/RECTAL SURGERY 10/06/23 Houston Beaver MD [address] [place] [address] Consulting Physician INTERVENTIONAL CARDIOLOGY 05/25/24
--- OUTSIDE RECORDS SUMMARY | 2024-09-16 00:12 | XMS_ITS | Encounter Summary ---
Author Organization [facility] Address [address] [place] [address] Care Team Providers Care Steel Plate Printer Name Role Phone Rita Lee MD Primary Care Provider Chintan Martinez MD Unavailable [phone] Pérez Herr MD Primary Care Provider [phone] Giuseppe Kulkarni MD Primary Care Provider Angela Miramontes [facility] Unavailable [phone] Cabrera Crouch MD Unavailable [phone] Teresa Morin APRN, NP-C Unavailable Ang Hudson MD Unavailable Kaiden Marshall DO Primary Care Provider [phone] Kaiden Marshall DO Primary Care Provider [phone] Matteo Denise MD Unavailable [phone] Jonelle Deluna MD Unavailable [phone] Houston Beaver MD Unavailable [phone] Encounter Details Date Type Department Care Team (Late st Contact Info) Description 04/29/2017 Abstract [facility] [address] [place] [address] Chintan Spears MD [address] [place] [address] Social History Tobacco Use Types Packs/Day Years Used Date Smoking Tobacco: Never Smokeless Tobacco: Never Alcohol Use Standard Drinks/Week Comments Yes 0 (1 standard drink = 0.6 oz pur e alcohol) Occasionally Sex and Gender Information Value Date Recorded Sex Assigned at Male 05/25/2024 9:04 AM CROSSTIE INSPECTOR Legal Sex Male 9:59 PM CDT Gender [...] Appointment [facility] [address] [place] [address] Teresa Morin APRN, RIDDLER OPERATOR-C [address] [phone] 12/27/2024 9:[address] [facility] [address] [place] [address] Ang Hudson MD [address] [facility], [address] [place] [address] 06/02/2025 10:00 AM CROSSTIE INSPECTOR [facility] [address] [place] [address] Teresa Morin APRN, RIDDLER OPERATOR-C [address] [phone] documented as of this encounter Visit Diagnoses Not on filedocumented in this encounter Additional Health Concerns Infection Onset Date Last Indicated Resolved Time COVID-19 Rule Out 11/19/2019 11/19/2019 11/20/2019 10:43 PM CDT COVID-19 Rule Out 12/24/2019 12/24/2019 12/25/2019 12:13 PM CDT COVID-19 Rule Out 07/31/2020 07/31/2020 08/01/2020 7:36 PM CDT documented as of this encounter Care Teams Steel Plate Printer Relationship Specialty Start Date End Date Rita Lee MD PCP - General SURGERY 01/03/16 11/15/18 Pérez Herr MD [address] [place] [address] PCP - General FAMILY PRACTICE 11/16/18 06/08/19 Giuseppe Kulkarni MD [address] [facility] [address] [place] [address] PCP - General FAMILY PRACTICE 06/09/19 10/14/21 Kaiden Marshall DO [address] [place] [address] PCP - General FAMILY PRACTICE 10/15/21 11/11/22 Kaiden Marshall DO [facility] [place] [address] PCP - General FAMILY PRACTICE 11/12/22 Chintan Spears MD [address] [place] [phone] [place] Spring Tacker CARDIOVASCULAR DISEASE 01/03/16 12/20/23 Angela Miramontes AGACNP-BC [address] [place] [id number] NURSE PRACTITIONER 07/07/19 07/05/23 Cabrera Crouch MD [address] [place] [address] CARDIOTHORACIC SURGERY 10/26/19 4 Teresa Morin APRN, RIDDLER OPERATOR-C [address] [facility] [address] [place] [phone] NURSE PRACTITIONER 12/01/19 Ang Hudson MD [address] [facility] [address] [place] [address] Vascular/Spring Tacker INTERNAL MEDICINE 01/05/20 [place] [address] [place] [address] Consulting Physician ORTHOPAEDIC SURGERY 07/06/23 Jonelle Deluna MD [address] [place] [address] COLON/RECTAL SURGERY 10/06/23 Houston Beaver MD [address] [place] [address] Consulting Physician INTERVENTIONAL CARDIOLOGY 05/25/24 documented as of this encounter
--- OUTSIDE RECORDS SUMMARY | 2024-09-16 00:13 | XMS_ITS | Encounter Summary ---
Author Organization [facility] Address [address] [place] [address] Care Team Providers Care Power Line Installer Name Role Phone Chintan Spears MD Unavailable [phone] nAgela Miramontes-ЕЛЕНА Unavailable [phone] Cabrera Crouch MD Unavailable [phone] Teresa Morin APRN, NP-C Unavailable [phone] Ang Hudson MD Unavailable Kaiden Marshall DO Primary Care Provider [phone] Kaiden Marshall DO Primary Care Provider [phone] Matteo Denise MD Unavailable [phone] Jonelle Deluna MD Unavailable [phone] Houston Beaver MD Unavailable [phone] Encounter Details Date Type Department Care Team (Late st Contact Info) Description 02/20/2022 Hospital Orders Only [facility] [address] [place], [place] [phone] Chintan Spears MD [address] [place] [address] Social History Tobacco Use Types Packs/Day Years Used Date Smoking Tobacco: Never Smokeless Tobacco: Never Alcohol Use Standard Drinks/Week Comments Yes 0 (1 standard drink = 0.6 oz pur e alcohol) rarely Sex and Gender Information Value Date Recorded Sex Assigned at Male 05/25/2024 9:04 AM BLOCKER AND CUTTER CONTACT LENS Legal Sex Male 9:59 PM CDT Gender [...] [facility]ointment [facility] [address] [place] [address] Teresa Morin, DEBARKER OPERATOR, PERSONNEL ADMINISTRATOR-C [address] [facility] [address] [place] [address] 12/27/2024 9:30 AM CDT Appointment [facility] [address] [place] [address] Ang Hudson MD [address] [facility] [place], [address] [place] [address] 06/02/2025 10:00 AM BLOCKER AND CUTTER CONTACT LENS Office Visit [facility] el [address] [place] [address] Teresa Morin APRN, PERSONNEL ADMINISTRATOR-C [address] [facility] [address] [place] [address] documented as of this encounter [...] on filedocumented in this encounter Care Teams Power Line Installer Relationship Specialty Start Date End Date Kaiden Marshall DO [address] [place] [address] PCP - General FAMILY PRACTICE 10/15/21 11/11/22 Kaiden Marshall DO [address] [place] [address] PCP - General FAMILY PRACTICE 11/12/22 Chintan Spears MD [address] [place] [phone] [place] [employer] Green Building Designer CARDIOVASCULAR DISEASE 01/03/16 12/20/23 Angela Miramontes AGACNP- [address] [address] NURSE PRACTITIONER 07/07/19 07/05/23 Cabrera Crouch MD [address] [address] CARDIOTHORACIC SURGERY 10/26/19 4 Teresa Morin, DEBARKER OPERATOR, PERSONNEL ADMINISTRATOR-C [address] [facility] [address] [place] [address] NURSE PRACTITIONER 12/01/19 Ang Hudson MD [address] [facility] [address] [place] [phone] Vascular/Commercial Green Building Designer INTERNAL MEDICINE 01/05/20 [place] [address] [place] [address] Consulting Physician ORTHOPAEDIC SURGERY 07/06/23 Jonelle Deluna MD [address] [place] [address] COLON/RECTAL SURGERY 10/06/23 Houston Beaver MD [address] [place] [address] Consulting Physician INTERVENTIONAL CARDIOLOGY 05/25/24 documented as of this encounter
[2024-09-16] MEDS: LACTATED RINGERS 1,000 ML 150 ML IV CONT (08:10)
[2024-09-16 08:13] VITALS: BP 163/69; PULSE 65; RESP 20; TEMP 36.1; O2SAT 100
--- NOTE | 2024-09-16 08:23 | P.PNAN_ITS ---
Anes - Initial Pre Proc Eval Procedure: Operation Date: 09/16/24 09:00 Proposed Procedures p Colonoscopy - Ricky Murillo MD Date/Time: 09/16/24 08:23 Surgeon: Ricky Murillo MD Pre Op Diagnosis: Hx of neoplasm Patient Data Age: 73 Gender: M Height: 1.78 m Weight: 96.7 kg Last Vital Signs Temp 97 F L 09/16/24 08:13 Pulse 65 09/16/24 08:13 Resp 20 09/16/24 08:13 BP 163/69 H 09/16/24 08:13 Pulse Ox 100 09/16/24 08:13 O2 Del Method Room Air 09/16/24 08:13 Allergies Allergy/AdvReac Type Severity Reaction Status Date / Time No Known Allergies Allergy Verified 09/16/24 07:46 Home Medications ?Medication ?Instructions ?Recorded ?Confirmed ?Type chlorthalidone 25 mg tablet 25 mg PO DAILY 04/03/20 09/16/24 History loratadine 10 mg tablet (Claritin) 10 mg PO DAILY 03/22/22 09/16/24 History amlodipine 2.5 mg tablet 2.5 mg PO BID 03/25/22 09/16/24 History fluticasone propionate 50 2 spray intranasal HS PRN Allergy 03/25/22 09/05/24 History mcg/actuation nasal Symptoms spray,suspension irbesartan 300 mg tablet 150 mg PO BID 03/25/22 09/16/24 History docusate sodium 100 mg capsule 100 mg PO DAILY 01/02/23 09/16/24 History (Colace) pantoprazole 40 mg tablet,delayed 40 mg PO QAM 01/02/23 09/16/24 History release blood sugar diagnostic (Accu-Chek #100 ea 06/22/23 09/05/24 Rx Madeleine Plus test strips) diphenhydramine 25 1 tablet PO HS 08/21/23 09/16/24 History mg-acetaminophen 500 mg tablet (Tylenol PM Extra Strength) magnesium 500 mg tablet 500 mg PO DAILY 08/21/23 09/16/24 History atorvastatin 80 mg tablet See Rx Instructions .Route 12/07/23 09/16/24 Rx .COMPLEX #90 tabs ropinirole 1 mg tablet See Rx Instructions .Route 12/30/23 09/16/24 Rx .COMPLEX #180 tabs apixaban 5 mg tablet (Eliquis) See Rx Instructions .Route 03/09/24 09/16/24 Rx .COMPLEX #180 tabs famotidine 40 mg tablet See Rx Instructions .Route 03/24/24 09/16/24 Rx .COMPLEX #90 tabs metformin 500 mg tablet,extended See Rx Instructions .Route 07/25/24 09/16/24 Rx release 24 hr .COMPLEX #90 tabs aspirin 81 mg capsule 81 mg PO DAILY 09/05/24 09/16/24 History prednisone 20 mg tablet 20 mg PO DAILY #10 tabs 09/13/24 09/16/24 Rx dapagliflozin propanediol 10 mg See Rx Instructions .Route 09/14/24 09/16/24 Rx tablet (Farxiga) .COMPLEX #90 tabs Patient hx anesthesia problems: none Family hx anesthesia problems: none Results Review: All pre-operative results and documents have been reviewed as part of the pre-operative evaluation. [facility] Past Medical History Medical History Mass of colon JOSE R (obstructive sleep apnea) Diverticulosis Afib Lightheadedness Weight loss G tube feedings GERD (gastroesophageal reflux disease) BMI 32.0-32.9,adult Hypokalemia Saddle embolus Multinodular goiter Dysphagia BPH (benign prostatic hyperplasia) Coronary artery disease involving coronary bypass graft of [place] heart Obesity CAD (coronary artery disease) Type 2 diabetes mellitus, without long-term current use of insulin Hypertension associated with diabetes Surgical History Surgical History S/P percutaneous endoscopic gastrostomy (PEG) tube placement H/O carotid endarterectomy 06/2019 Hx of coronary artery bypass graft x7, 1993 History of lumbar laminectomy 03/2016 History of heart artery stent 1 stent: 03/2005 1 stent: 02/2008 3 stents: 02/2009 1 stent: 12/2013 1 stent: 09/2014 Status post trigger finger release (~2017) Family History Family History Mother , mother at age 58 of [place] No problems noted. Father , father of coronary artery disease at age 55 No problems noted. Other Family history of coronary artery disease Social History Social History Smoking status: Never smoker Alcohol intake: current Alcohol use details: does not drink alcohol Substance use: never Substance use type: does not use Lack of Transportation: No Lack of Food: Never True Current Housing: I Have Housing Concerned About Future Housing: No Difficulty Paying Gas/Electric Bills: No Difficulty Paying for Meds: No Currently Unemployed: No Education: Bachelor's Degree Difficulty w/ Childcare or Family Care: No Living arrangements: with family Additional living arrangements comments: Occupation/Education: retired Gender identity (if verbalized by the patient): Male Sexual Orientation (if Verbalized by the Patient): Straight or Heterosexual Spiritual care concerns: No Anes - Eval Final PreProcedure Day of Procedure 09/16/24 08:23 Patient weight: obese Heart: regular rate and rhythm Lungs: clear to auscultation Airway: Mallampati scale class II Neurological: alert and oriented Last oral intake: >/= 8 hours ASA classification: III Emergent: no Anesthetic plan: proceed Anesthesia type and monitoring: general GIVS and standard monitoring Results Review: All pre-operative results and documents have been reviewed as part of the pre- operative evaluation. Informed Consent: The patient's anesthetic plan and its attendant risks and benefits were discussed with the patient/family/POA. Questions were solicited and answers provided to the satisfaction of the patient/family/POA.
--- NOTE | 2024-09-16 08:34 | P.HP_ITS ---
History of Present Illness History of Present Illness Consent: Risks, benefits, and alternatives have been discussed and questions answered. Patient agrees to proceed with procedure. Chief complaint: Hx of neoplasm Narrative: Santo Miller is a 73 year old male with colon ca diagnosed 1 year ago s/p surgery, lymph nodes negative and chemotherapy, doing well, recent CT scan negative Review of Systems Review of Systems: All systems reviewed & are unremarkable except as noted in HPI and below PMFSH Past Medical History Medical History Mass of colon JOSE R (obstructive sleep apnea) Diverticulosis Afib Lightheadedness Weight loss G tube feedings GERD (gastroesophageal reflux disease) BMI 32.0-32.9,adult Hypokalemia Saddle embolus Multinodular goiter Dysphagia BPH (benign prostatic hyperplasia) Coronary artery disease involving coronary bypass graft of [place] heart Obesity CAD (coronary artery disease) Type 2 diabetes mellitus, without long-term current use of insulin Hypertension associated with diabetes Surgical History Surgical History S/P percutaneous endoscopic gastrostomy (PEG) tube placement H/O carotid endarterectomy 06/2019 Hx of coronary artery bypass graft x7, 1993 History of lumbar laminectomy 03/2016 History of heart artery stent 1 stent: 03/2005 1 stent: 02/2008 3 stents: 02/2009 1 stent: 12/2013 1 stent: 09/2014 Status post trigger finger release (~2017) Family History Family History Mother , mother at age 58 of [place] No problems noted. Father , father of coronary artery disease at age 55 No problems noted. Other Family history of coronary artery disease Social History Social History Smoking status: Never smoker Alcohol intake: current Alcohol use details: does not drink alcohol Substance use: never Substance use type: does not use Lack of Transportation: No Lack of Food: Never True Current Housing: I Have Housing Concerned About Future Housing: No Difficulty Paying Gas/Electric Bills: No Difficulty Paying for Meds: No Currently Unemployed: No Education: Bachelor's Degree Difficulty w/ Childcare or Family Care: No Living arrangements: with family Additional living arrangements comments: Occupation/Education: retired Gender identity (if verbalized by the patient): Male Sexual Orientation (if Verbalized by the Patient): Straight or Heterosexual Spiritual care concerns: No Meds Home Medications and Allergies Home Medications ?Medication ?Instructions ?Recorded ?Confirmed ?Type chlorthalidone 25 mg tablet 25 mg PO DAILY 04/03/20 09/16/24 History loratadine 10 mg tablet (Claritin) 10 mg PO DAILY 03/22/22 09/16/24 History amlodipine 2.5 mg tablet 2.5 mg PO BID 03/25/22 09/16/24 History fluticasone propionate 50 2 spray intranasal HS PRN Allergy 03/25/22 09/05/24 History mcg/actuation nasal Symptoms spray,suspension irbesartan 300 mg tablet 150 mg PO BID 03/25/22 09/16/24 History docusate sodium 100 mg capsule 100 mg PO DAILY 01/02/23 09/16/24 History (Colace) pantoprazole 40 mg tablet,delayed 40 mg PO QAM 01/02/23 09/16/24 History release blood sugar diagnostic (Accu-Chek #100 ea 06/22/23 09/05/24 Rx Madeleine Plus test strips) diphenhydramine 25 1 tablet PO HS 08/21/23 09/16/24 History mg-acetaminophen 500 mg tablet (Tylenol PM Extra Strength) magnesium 500 mg tablet 500 mg PO DAILY 08/21/23 09/16/24 History atorvastatin 80 mg tablet See Rx Instructions .Route 12/07/23 09/16/24 Rx .COMPLEX #90 tabs ropinirole 1 mg tablet See Rx Instructions .Route 12/30/23 09/16/24 Rx .COMPLEX #180 tabs apixaban 5 mg tablet (Eliquis) See Rx Instructions .Route 03/09/24 09/16/24 Rx .COMPLEX #180 tabs famotidine 40 mg tablet See Rx Instructions .Route 03/24/24 09/16/24 Rx .COMPLEX #90 tabs metformin 500 mg tablet,extended See Rx Instructions .Route 07/25/24 09/16/24 Rx release 24 hr .COMPLEX #90 tabs aspirin 81 mg capsule 81 mg PO DAILY 09/05/24 09/16/24 History prednisone 20 mg tablet 20 mg PO DAILY #10 tabs 09/13/24 09/16/24 Rx dapagliflozin propanediol 10 mg See Rx Instructions .Route 09/14/24 09/16/24 Rx tablet (Farxiga) .COMPLEX #90 tabs Allergies Allergy/AdvReac Type Severity Reaction Status Date / Time No Known Allergies Allergy Verified 09/16/24 07:46 Vital Signs Vital Signs - 24 hr 09/16/24 08:13 Temperature 97 F L Pulse Rate 65 Respiratory Rate 20 Blood Pressure 163/69 H Pulse Oximetry 100 Oxygen Delivery Room Air Exam Const: General: comfortable and no acute distress HENMT: Face/Nose/Sinus: Normal nares present Eyes: General: appearance normal, both eyes and all related structures Neck: Neck: no JVD Resp: Auscultation: clear to auscultation bilaterally Cardio: Rate: regular rate Rhythm: regular rhythm GI: Inspection: non-distended GI Palp: Yes Soft to palpation Skin: General skin exam: normal color Neuro: Speech: normal speech Extrem: General: normal to inspection Psych: Mental Status: mental status grossly normal Assessment and Plan Assessment and plan (1) Adenocarcinoma, colon: Code(s): C18.9 - Malignant neoplasm of colon, unspecified Status: Acute Assessment and Plan: s/p surgery, recent CT turner negative colonoscopy
[2024-09-16 08:41] LABS: Glucose Point of Care 180 mg/dl (65-105)
[2024-09-16 08:49] VITALS: BP 109/53; PULSE 64; RESP 17; O2SAT 98
[2024-09-16 08:59] VITALS: BP 123/58; PULSE 58; RESP 20; O2SAT 98
[2024-09-16 09:09] VITALS: BP 131/68; PULSE 66; RESP 20; O2SAT 98
[2024-09-16] MEDS: CENTRAL LINE FLUSH 10 ML IV PUSH (09:10)
[2024-09-16] MEDS: HEPARIN SODIUM LOCK FLUSH 500 UNITS/5 ML SYRINGE IV PUSH (09:10)
== END 2024-09-16 09:25 | disposition home or self-care (01) ==
PROVIDERS: PCP Family Medicine; Visit Provider Internal Medicine Gastroenterology
PROC: 0DJD8ZZ Inspection of Lower Intestinal Tract, Via Natural or Artificial Opening Endoscopic (ICD-10-PCS; CPT 45378; principal; 2024-09-16 09:00)
DX: Z08 Encounter for follow-up examination after completed treatment for malignant neoplasm (principal); D12.0 Benign neoplasm of cecum; D12.2 Benign neoplasm of ascending colon; K64.8 Other hemorrhoids; K57.30 Diverticulosis of large intestine without perforation or abscess without bleeding; E11.9 Type 2 diabetes mellitus without complications; I10 Essential (primary) hypertension; G47.33 Obstructive sleep apnea (adult) (pediatric); K21.9 Gastro-esophageal reflux disease without esophagitis; E87.6 Hypokalemia; N40.0 Benign prostatic hyperplasia without lower urinary tract symptoms; I25.10 Atherosclerotic heart disease of native coronary artery without angina pectoris; I48.91 Unspecified atrial fibrillation; E66.9 Obesity, unspecified; Z68.30 Body mass index [BMI] 30.0-30.9, adult; Z79.01 Long term (current) use of anticoagulants; Z79.84 Long term (current) use of oral hypoglycemic drugs; Z79.52 Long term (current) use of systemic steroids; Z79.82 Long term (current) use of aspirin; Z98.890 Other specified postprocedural states; Z98.0 Intestinal bypass and anastomosis status; Z90.49 Acquired absence of other specified parts of digestive tract; Z98.1 Arthrodesis status; Z95.5 Presence of coronary angioplasty implant and graft; Z93.1 Gastrostomy status; Z85.038 Personal history of other malignant neoplasm of large intestine; Z92.21 Personal history of antineoplastic chemotherapy; Z86.711 Personal history of pulmonary embolism; Z87.19 Personal history of other diseases of the digestive system; Z82.49 Family history of ischemic heart disease and other diseases of the circulatory system
CPT/HCPCS: 45385; 82948; 88305; J2003; J2704; J7120

== ENCOUNTER 2024-09-21 10:47 | Outpatient (CLI) | payer MEDICARE, SELFPAY ==
--- NOTE | ~2024-09-21 | XR_ITS ---
AP view of the pelvis and AP and lateral views of the left hip Clinical history: Pain Findings: No acute fracture or dislocation is seen. Osseous alignment is anatomic. There is moderate to advanced degenerative change of the medial aspect of both hip joints. Soft tissues are unremarkabl e. 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 Reviewed, dictated and finalized at location . Impression: Moderate to advanced degenerative change of the medial aspect of both hip joint s.
--- OUTSIDE RECORDS SUMMARY | 2024-09-21 11:03 | XMS_ITS | Encounter Summary ---
Author Organization [facility] Healthcare Address [facility] [place] [address] Care Team Providers Care Aviation Survival Technician Name Role Phone Timbo Cardoso MD Unavailable Mike Ledezma MD PhD Unavailable [phone] Esdras Conway MD Unavailable [phone] Kaiden Marshall DO Primary Care Provider Edelmira Alexandre NP Unavailable [phone] Jonelle Deluna MD Unavailable [phone] Gilmer Menezes MD Unavailable [phone] Encounter Details Date Type Department Care Team (Late st Contact Info) Description 02/11/2024 Telephone [facility] [address] [place] [address] Tiffany Kennedy, RN Social History Tobacco Use [...] on file Legal Sex Male 3:59 PM RN COMPLIANCE Gender Identity Male 01/29/2021 1:19 PM CDT Sexual Orientation Not on file documented as of this encounter Plan of Treatment Not on file documented as of this encounter Visit Diagnoses Not on filedocumented in this encounter Care Teams Aviation Survival Technician Relationship Specialty Start Date End Date Kaiden Marshall DO [address] [place] [address] PCP - General Family Medicine 10/10/21 Timbo Cardoso MD Consulting Physician Neurology 10/18/20 Mike Ledezma MD PhD [address] [place] [address] Radiation Oncologist Radiation Oncology 02/21/21 Esdras Conway MD [address] [place] [address] Referring Physician Urology 02/21/21 04/20/24 Edelmira Alexandre NP [address] [place] [address] Registered Nurse Family Medicine 09/08/23 Jonelle Deluna MD [address] [phone] [place] [address] Surgeon Colon and Rectal Surgery 09/29/23 Gilmer Menezes MD [address] [facility] [address] [place] [address] Medical Oncologist/Business Operations Consultant Medical Oncology 11/24/23 documented as of this encounter
--- OUTSIDE RECORDS SUMMARY | 2024-09-21 11:03 | XMS_ITS | Encounter Summary ---
Author Organization [facility] Address [address] [place] [address] Care Team Providers Care Home Health Clinical Supervisor Name Role Phone Chintan Spears MD Unavailable [phone] Giuseppe Kulkarni MD Primary Care Provider Angela Miramontes AGACN- Unavailable [phone] Cabrera Crouch MD Unavailable [phone] Teresa Morin APRN, FAUCETS ASSEMBLER-C Unavailable Ang Hudson MD Unavailable Kaiden Marshall DO Primary Care Provider [phone] Kaiden Marshall DO Primary Care Provider [phone] Matteo Denise MD Unavailable [phone] Jonelle Deluna MD Unavailable [phone] Houston Beaver MD Unavailable [phone] Encounter Details Date Type Department Care Team (Late st Contact Info) Description 08/09/2020 Abstract [facility] [address] [place] [address] Chintan Spears MD [address] [place] [address] Social History Tobacco Use Types Packs/Day Years Used Date Smoking Tobacco: Never Smokeless Tobacco: Never Alcohol Use Standard Drinks/Week Comments Yes 0 (1 standard drink = 0.6 oz pur e alcohol) rarely Sex and Gender Information Value Date Recorded Sex Assigned at Male 05/25/2024 9:04 AM SPECIAL EDUCATION ASSISTANT Legal Sex Male 9:59 PM CDT Gender [...] CDT Appointment [facility] [address] [place] [address] Teresa Morin, RETAIL CENTER RECEPTIONIST, FAUCETS ASSEMBLER-C [address] [facility] [address] [phone] 12/27/2024 9:[address] [facility] [address] [place] [address] Ang Hudson MD [address] [facility], [address] [place] [address] 06/02/2025 10:00 AM SPECIAL EDUCATION ASSISTANT Office Visit [facility] [address] [place] [address] Teresa Morin, ALLY, FAUCETS ASSEMBLER-C [address] [phone] documented as of this encounter Visit Diagnoses Not on filedocumented in this encounter Care Teams Home Health Clinical Supervisor Relationship Specialty Start Date End Date Giuseppe Kulkarni MD [address] [facility] [address] [place] [address] PCP - General FAMILY PRACTICE 06/09/19 10/14/21 Kaiden Marshall DO [address] [place] [address] PCP - General FAMILY PRACTICE 10/15/21 11/11/22 Kaiden Marshall DO [address] [place] [address] PCP - General FAMILY PRACTICE 11/12/22 Chintan Spears MD [address] [place] [phone] [place] Asset Protection Officer CARDIOVASCULAR DISEASE 01/03/16 12/20/23 Angela Miramontes VIRIDIANA-BC [address] [id number] NURSE PRACTITIONER 07/07/19 07/05/23 Cabrera Crouch MD [address] [id number] CARDIOTHORACIC SURGERY 10/26/19 4 Teresa Morin APRN, FAUCETS ASSEMBLER-C [address] [facility] [address] [place] [address] NURSE PRACTITIONER 12/01/19 Ang Hudson MD [address] [facility] [address] [address] Vascular/Asset Protection Officer INTERNAL MEDICINE 01/05/20 Matteo Denise MD [address] [place], [place] [id number] Consulting Physician ORTHOPAEDIC SURGERY 07/06/23 Jonelle Deluna MD [address] [place] [address] COLON/RECTAL SURGERY 10/06/23 Houston Beaver MD [address] [place] [address] Consulting Physician INTERVENTIONAL CARDIOLOGY 05/25/24 documented as of this encounter
--- OUTSIDE RECORDS SUMMARY | 2024-09-21 11:03 | XMS_ITS | Clinical Summary ---
Author Organization [facility] Address [address] [place] [address] Phone Care Team Providers Care Bush And Vine Farmer Fruit Crops Name Role Phone Karly Pat MD Unavailable Kaiden Marshall MD Primary Care Provider [phone] Allergies No known active allergies Medications amLODIPine [...] Active fluticasone (FLONASE) 50 MCG/ACT Suspension 1 [place] by Nasal route nightly. Use in each [...] cm (5' 10 ) 05/26/2023 9:24 AM NECKTIE STITCHER Body Mass Index 30.28 05/26/2023 9:24 AM NECKTIE STITCHER Plan of Treatment Upcoming Encounters Date Type Department Care Team (Late st Contact Info) Description 02/21/2025 10:00 AM CDT Office Visit [facility] - Endocrinology - [place] [address] [place] [address] Karly Pat MD [address] [address] Health Maintenance Due Date Last [...] topic Insurance MEDICARE C AETNA Care Teams Bush And Vine Farmer Fruit Crops Relationship Specialty Start Date End Date Kaiden Marshall MD [address] [place] [address] PCP - General Family Medicine 02/20/22 Karly Pat MD [address] [phone] Consulting Physician Endocrinology 02/11/22
--- OUTSIDE RECORDS SUMMARY | 2024-09-21 11:03 | XMS_ITS | Encounter Summary ---
Author Organization [facility] Address [address] [place] [address] Care Team Providers Care Central Supply Technician Name Role Phone Chintan Spears MD Unavailable [phone] Giuseppe Kulkarni MD Primary Care Provider Angela Miramontes AGACN- Unavailable [phone] Cabrera Crouch MD Unavailable [phone] Teresa Morin APRN, WAGON DRILLER-C Unavailable [phone] Ang Hudson MD Unavailable Kaiden Marshall DO Primary Care Provider [phone] Kaiden Marshall DO Primary Care Provider [phone] Matteo Denise MD Unavailable [phone] Jonelle Deluna MD Unavailable [phone] Houston Beaver MD Unavailable [phone] Encounter Details Date Type Department Care Team (Late st Contact Info) Description 10/02/2021 Pre-Procedure Call [facility] Ann[facility]cer [employer] [address] [place] [address] Chintan Spears MD [address] [place] [address] Social History Tobacco Use Types Packs/Day Years Used Date Smoking Tobacco: Never Smokeless Tobacco: Never Alcohol Use Standard Drinks/Week Comments Yes 0 (1 standard drink = 0.6 oz pur e alcohol) rarely Sex and Gender Information Value Date Recorded Sex Assigned at Male 05/25/2024 9:04 AM GENERAL UTILITY MACHINE OPERATOR Legal Sex Male 9:59 PM CDT [...] Appointment [facility] [address] [place], [place] [phone] Teresa Morin, PLASTIC PROCESS TECHNICIAN, WAGON DRILLER-C [address] [facility] [address] [place] [phone] 12/27/2024 9:30 AM CDT Appointment [facility] [address] [place] [address] Ang Hudson MD [address] [facility], [address] [place], [place] [phone] 06/02/2025 10:00 AM GENERAL UTILITY MACHINE OPERATOR Office Visit [facility] [address] [place] [address] Teresa Morin APRN, WAGON DRILLER-C [address] [phone] documented as of this encounter Visit Diagnoses Not on filedocumented in this encounter Care Teams Central Supply Technician Relationship Specialty Start Date End Date Giuseppe Kulkarni MD [address] [facility] [address] [place] [address] PCP - General FAMILY PRACTICE 06/09/19 10/14/21 Kaiden Marshall DO [address] [place] [address] PCP - General FAMILY PRACTICE 10/15/21 11/11/22 Kaiden Marshall DO [address] [place] [address] PCP - General FAMILY PRACTICE 11/12/22 Chintan Spears MD [address] [place] [phone] [place] Water Purifier Operator CARDIOVASCULAR DISEASE 01/03/16 12/20/23 Angela Miramontes AGACNP-BC [address] [address] NURSE PRACTITIONER 07/07/19 07/05/23 Cabrera Crouch MD [address] [address] CARDIOTHORACIC SURGERY 10/26/19 4 Teresa Morin, PLASTIC PROCESS TECHNICIAN, WAGON DRILLER-C [address] [facility] [address] [place] [address] NURSE PRACTITIONER 12/01/19 Ang Hudson MD [address] [facility] [address] [address] Vascular/Water Purifier Operator INTERNAL MEDICINE 01/05/20 Matteo Denise MD [address] [place] [id number] Consulting Physician ORTHOPAEDIC SURGERY 07/06/23 Jonelle Deluna MD [address] [place] [address] COLON/RECTAL SURGERY 10/06/23 Houston Beaver MD [address] [place] [address] Consulting Physician INTERVENTIONAL CARDIOLOGY 05/25/24 documented as of this encounter
--- OUTSIDE RECORDS SUMMARY | 2024-09-21 11:04 | XMS_ITS | Clinical Summary ---
Author Organization [facility] Address [address] [place] [address] Care Team Providers Care Nutrition Internship Name Role Phone Teresa Morin APRN, NP-C Unavailable Ang Hudson MD Unavailable Kaiden Marshall DO Primary Care Provider [phone] Matteo Denise MD Unavailable [phone] Jonelle Deluna MD Unavailable Houston Beaver MD Unavailable [phone] Allergies No known active allergies Medications atorvastatin 80 MG tabletIndicati ons:cholestero l Take 1 tablet (80 mg total) by mouth nightly at bedtime. Indications: cholesterol 06/13/19 12 Active fluticasone propionate 50 MCG/ACT nasal sprayIndicatio ns:nasal congestion 1 spray by Each Nostril route [...] and 2mg at bedtime 06/25/19 23 Active diphenhydrAMIN E-APAP (TYLENOL PM) 25-500 MG Tab tablet Take 1 tablet by mouth nightly at bedtime. Active Magnesium 500 MG Cap Take 1 capsule by mouth daily. 07/10/19 23 Active FARXIGA 10 MG tablet Take 1 tablet (10 mg total) by mouth daily. 07/10/19 24 Active nitroglycerin (NITROSTAT) 0.4 MG SL tabletIndicati ons:chest pain Place 1 tablet (0.4 mg total) [...] (81 mg total) by mouth daily. Active amLODIPine (NORVASC) 2.5 MG tablet Take [...] daily 30 tablet 1 09/16/19 25 Active isosorbide mononitrate ER (IMDUR) 60 MG 24 hr tablet Take 1 tablet (60 mg total) by mouth daily. 90 tablet 3 09/21/19 25 Active irbesartan (AVAPRO) 300 MG tablet TAKE 0.5 TABLETS (150 MG TOTAL) BY MOUTH 2 (TWO) TIMES DAILY. 90 tablet 3 11/26/19 24 025 Discontinued isosorbide mononitrate ER (IMDUR) 60 MG 24 hr tablet Take 1 tablet (60 mg total) by mouth daily. 90 tablet 3 12/16/19 24 025 Discontinued(R eorder) Active Problems Problem Noted Date Diagnosed Date S/p bilateral carotid endarterectomy 10/05/2023 Coronary artery disease invo lving ruby coronary artery of ruby heart 05/02/2023 Iron deficiency anemia 05/12/2022 Ectopic atrial rhythm 01/11/2022 Premature ventricular contractions (PVCs) (VPCs) 01/11/2022 Nonsustained ventricular tachycardia ([facility] S/HCC) 01/11/2022 AV block 01/11/2022 Carotid artery stenosis 11/14/2021 Longstanding persistent atri al fibrillation ([facility]) 11/04/2021 Symptomatic bradycardia 11/04/2021 On continuous oral anticoagulation 11/04/2021 Exercise intolerance 11/04/2021 Edema of left lower extremity 11/04/2021 Hx of CABG 11/04/2021 Dyspnea on exertion 11/04/2021 Chronic fatigue 11/04/2021 Hx pulmonary embolism 11/04/2021 Episodic lightheadedness 11/04/2021 Elevated PSA 04/20/2020 Overview (05/15/2020): Added automatically from request for surgery [id number] Leg edema 02/28/2020 History of DVT (deep vein thrombosis) 01/10/2020 Atrial fibrillation ([facility]) 11/10/2019 History of pulmonary embolus (PE) 07/26/2019 Acute pulmonary embolism ([facility]) 07/25 Carotid artery stenosis without [...] mg/dL. Assessment & Plan (04/16/2021 3:05 PM CUSTOMER ACCOUNTS ADVISOR): Gideon Thorpe remains stable with regard to [...] Mixed hyperlipidemia 01/07/2016 Type 2 diabetes mellitus ([facility]) 01/06 Pulmonary hypertension ([facility]) 016 Cor pulmonale ([facility]) 05/16/2015 SOB (shortness of breath) 11/21/2014 JOSE R (obstructive sleep apnea) 11/14/2014 DVT of lower extremity, bilateral ([facility]) Pulmonary embolism ([facility]) Resolved Problems Problem Noted Date Diagnosed Date Resolved Date Afib ([facility]) 01/07/202201/08 Coronary artery disease invo lving ruby coronary artery of ruby heart with unstable angina pectoris ([facility]) 01/07/2016 05/02/2023 Encounter for preventive health examination 10/31/2014 05/21/2020 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 08/12/2021 Encounters Date Type Department Care Team Description 09/20/2024 Telephone [facility] [address] [place] [address] Teresa Morin, ALLY, WAX BLEACHER-C Refill Request 09/15/2024 10:00 AM CDT Office Visit [facility] [address] [place] [address] Teresa Morin, ALLY, WAX BLEACHER-C Consult (Preop evaluation prior to colonoscopy) 09/15/2024 Telephone [facility] [address] [place] [address] Teresa Morin APRN, WAX BLEACHER-C Information; Surgical Clearance 09/15/2024 Travel 09/15/2024 Orders Only [facility] [address] [place] [address] Bob Yeager MD 09/09/2024 Telephone [facility] [address] [place] [address] Radha Ellis NP Surgical Clearance 09/09/2024 Telephone [facility] [address] [place] [address] Teresa Morin, ALLY, WAX BLEACHER-C Pre-op Question(s) 07/27/2024 9:42 AM CDT - 07/27/2024 11:59 PM CDT Hospital Encounter [address] [place] [address] Bryanna Hall NP Discharge Disposition: Home or Self Care (Routine Discharge) 07/27/2024 Orders Only [address] [place] [address] Bryanna Hall NP 07/27/2024 Travel from Last [...] Sex Assigned at Male 05/25/2024 9:04 AM CUSTOMER ACCOUNTS ADVISOR Legal Sex Male 9:59 PM CDT Gender [...] CDT Oxygen Saturation 97% 05/25/2024 9:20 AM CUSTOMER ACCOUNTS ADVISOR Inhaled Oxygen Concentration - - Weight 98.9 kg (218 lb) 09/15/2024 9:54 AM CDT Height 177.8 cm (5' 10 ) 09/15/2024 9:54 AM CDT Body Mass Index 31.28 09/15/2024 9:54 AM CDT Plan of Treatment Upcoming Encounters Date Type Department Care Team (Late st Contact Info) Description 10/05/2024 9:[address] [facility] [address] [place] [address] Teresa Morin APRN, WAX BLEACHER-C [id number] [place] [phone] 12/27/2024 9:[address] [facility] [address] [place] [address] Ang Hudson MD [address] [facility], [address] [place] [address] 06/02/2025 10:00 AM CUSTOMER ACCOUNTS ADVISOR Office Visit [facility] [address] [place] [phone] Teresa Morin APRN, WAX BLEACHER-C [id number] [place] [phone] Health Maintenance Due Date Last Done Comments [...] 1-dose 75+ series) 12/19/2023 COVID-19 Vaccine ( - season) 2024 02/19/2021, 07/06/2020, 06/15/2020 Hemoglobin A1C 09/07/2024 03/09/2024, 0701/2024, 04/04/2020, Additional history exists Lipid Panel 03/09/2025 [...] Golden RN Medical Devices Implanted Type Area Barrel Assembly Inspector Device Identifier Shelf Expiration Date Model / Serial / Lot Graft Patch Hemashield [place] 0.8cmx7.6cm - [id number] Implanted:Qty: 1 on 11/14/2021 by Cabrera Crouch MD at [facility] Graft Left: Carotid [employer] [id number] 06/10/2024 [id number] / [id number] Ashley Xact Carotid Stent- 0 Implanted:06/11 by John Zhang MD (Quantity not on file) Stent Carotid ASHLEY VASCULAR 04/09/2020 [id number] / / [id number] Cv Orsio Svg-Rca Stent- 0 Implanted:Qty: 1 on 11/23/2019 by Nicolás Serrano MD Stent Coronary [employer] 01/16/2021 [id number] / / [id number] Cv Orsio Svg-Rca Stent- 0 Implanted:11/08 by Nicolás Serrano MD (Quantity not on file) Stent Coronary BIOTRONIK 01/09/2021 [id number] / / [id number] Cv Synergy Chandana Svg-Rca Stent- 1 Implanted:Qty: 1 on 08/03/2020 by Skyler Ramirez MD Stent Coronary [employer] TAISHA 03/06/2022 [id number] / / [id number] Cv Xience Skypoint 3.5x28 Chandana Svg-Rca- 023 Implanted:Qty: 1 on 11/17/2022 by Cabrera Jacobs MD Stent ASHLEY VASCULAR 08/23/2023 [id number] 0- 41 Graft Patch Hemashield [place] 0.8cmx7.6cm - [id number] Implanted:Qty: 1 on 06/22/2019 by Cabrera Crouch MD at [facility] Right: Neck [employer] 09/08/2023 [id number] E Description:Sewn in graft wi th prolene. Explanted Type Area Barrel Assembly Inspector Device Identifier Shelf Expiration Date Model / Serial / Lot Cv-Ivc Filter Explanted:Qty: 1 on 12/27/2019 by John Zhang MD Filter Inferior Vena Cava Description:IVC Filter Remov ed Procedures Procedure Name Priority Date/Time Associated Diagnosis Comments ELECTROCARDIOGRAM (NON MIDMARK ACQUIRED) Routine 09/15/2024 10:00 AM CDT Pre-operative cardiovascular examination Coronary artery disease involving ruby coronary artery of ruby heart without angina pectoris Shortness of breath Longstanding persistent atrial fibrillation (CMS/HCC HHS/HCC) Bilateral carotid artery stenosis Essential (primary) hypertension Mixed hyperlipidemia TESTOSTERONE, TOTAL Routine 07/27/2024 9 :52 AM CDT Malignant neoplasm of prostate (CMS/HCC HHS/HCC) PROSTATE SPECIFIC ANTIGEN,TOTAL Routine 07/27/2024 9:52 AM CDT Malignant neoplasm of prostate (CMS/HCC HHS/HCC) LIPID PANEL Routine 03/09/2024 HEMOGLOBIN, GLYCOSYLATED Routine 03/09/2024 CTA ABD+PEL STAT 08/01/2019 8:46 PM CDT from Last 3 Months or Most Recently Relevant to Health Maintenance Results * ELECTROCARDIOGRAM (09/15/2024 10:00 AM CDT) 09/15/2024 10:0 0 AM CDT Narrative EVERARDO HUGGINS - 09/16/2024 5:32 PM CDT [facility] [address] [place] [address] Test Date: 2024-09-15 Pat Name: GIDEON THORPE Department: 105 Room: Gender: Male Performance Manager: lindy : 1950 Requested By: BOB YEAGER Order Number: [id number] Reading MD: Bob Yeager Measurements Intervals Gu[place]upe Rate: 74 P: 0 VT: 0 QRS: 19 QRSD: 92 T: 28 QT: 399 QTc: 444 Interpretive Statements ATRIAL FIBRILLATION Procedure Note Bob Yeager MD - 09/16/[address] [address] Test Date: 2024-09-15 Pat Name: GIDEON THORPE Department: 105 Room: Gender: Male Performance Manager: lindy : 1950 Requested By: BOB YEAGER Order Number: [id number] Reading MD: Bob Yeager Measurements Intervals [place]upe Rate: 74 P: 0 VT: 0 QRS: 19 QRSD: 92 T: 28 QT: 399 QTc: 444 Interpretive Statements ATRIAL FIBRILLATION us Bob Yeager MD PROCEDURES-ORDERABLE NO DORCAS RGE Final Result [facility] * PROSTATE SPECIFIC ANTIGEN, DIAG (07/27/2024 9:52 AM CDT) PSA 1.65 <4.00 NG/ML 07/27/2024 10:42 AM CDT [facility] Comment: ASSAY PERFORMED BY [employer]UNO[employer] METHODOLOGY USING SIEMENS DIMENSION REAGENT. PATIENT RESULTS DETERMINED BY ASSAYS FROM DIFFERENT MANUFACTURERS AND/OR BY DIFFERENT METHODS MAY NOT BE COMPARABLE. 07/27/2024 9:52 AM CDT Bryanna Hall NP LABORATORY Final Result Performing Organization Address City/[facility]/ZIP Co de Phone Number [facility] [address] [place] [address], [place] [phone] * TESTOSTERONE, TOTAL (07/27/2024 9:52 AM CDT) Pathologist [facility] TESTOSTERONE TOTAL 256 250 - 1,100 ng/dL 08/01/2024 12:19 AM CDT [employer] [facility] VOSS Comment: Men with clinically significant hypogonadal symptoms and testosterone values repeatedly in the range of the 200-300 ng/dL or less, may benefit from testosterone treatment after adequate risk and benefits counseling. For additional information, please refer to http://education.Ubiterra/faq/ [email or web address] (This link is being provided for informational/ educational purposes only.) This test was developed and its analytical performance characteristics have been determined by [place]. It has not been cleared or approved by the U.S. Food and Drug Administration. This assay has been validated pursuant to the CLIA regulations and is used for clinical purposes. Test Performed by [facility], [employer] [place], [address] [place] [address] Antwan Roca M.D., Ph.D., Director of Laboratories , CLIA [id number] 07/27/2024 9:52 AM CDT us Bryanna Hall NP LABORATORY Final Result Performing Organization Address City/[facility]/ZIP Co de Phone Number [facility] [address] [place], [place] , [place] [phone] * HEMOGLOBIN, GLYCOSYLATED (03/09/2024) HGB A1C 7.4 % Narrative Resulting Agency Comment [facility] us Default History Genericprovider LABORATORY Final Result * LIPID PANEL (03/09/2024) CHOLESTEROL 140 TRIGLYCERIDES 106 HDL 54 LDL (CALCULATED) 65 Narrative Resulting Agency Comment [facility] us Default History Genericprovider LABORATORY Final Result from Last 3 Months or Most Recently Relevant to Health Maintenance Insurance [employer]ET MED [facility] MEDICARE Advance Directives * Full Code [...] 10:34 AM 08/03/2020 6:50 PM Care Teams Nutrition Internship Relationship Specialty Start Date End Date Kaiden Marshall DO [address] [place] [address] PCP - General FAMILY PRACTICE 11/12/22 Teresa Morin, BRIM BLOCKER, WAX BLEACHER-C [address] [address] NURSE PRACTITIONER 12/01/19 Ang Hudson MD [address] [facility] [address] [address] Vascular/Ball Sorter INTERNAL MEDICINE 01/05/20 Matteo Denise MD [address] [place], [place] [address] Consulting Physician ORTHOPAEDIC SURGERY 07/06/23 Jonelle Deluna MD [address] [place] [address] COLON/RECTAL SURGERY 10/06/23 Houston Beaver MD [address] [place] [address] Consulting Physician INTERVENTIONAL CARDIOLOGY 05/25/24
--- OUTSIDE RECORDS SUMMARY | 2024-09-21 11:04 | XMS_ITS | Clinical Summary ---
Author Organization [facility] Address [address] [place] [address] Care Team Providers Care Satellite Tv Installer Name Role Phone Timbo Cardoso MD Unavailable Mike Ledezma MD PhD Unavailable [phone] Kaiden Marshall DO Primary Care Provider Edelmira Alexandre NP Unavailable [phone] Jonelle Deluna MD Unavailable [phone] Gilmer Menezes MD Unavailable [phone] Allergies No known active allergies Medications amLODIPine [...] pain 11/02/2023 Coronary artery disease invo lving craig coronary artery of craig heart 05/02/2023 Iron deficiency anemia 05/12/2022 AV [...] (08/15/2020): Added automatically from request for surgery [id number] Assessment & Plan (02/12/2022 11:29 AM CDT): [...] (07/12/2020): Added automatically from request for surgery [id number] Rising PSA following treatme nt for malignant neoplasm of prostate 04/20/2020 Overview (04/20/2020): Added automatically from request for surgery [id number] Elevated PSA 04/20/2020 Overview (03/07/2024): Added automatically from request for surgery [id number] Edema of left lower extremity 02/28/2020 History [...] Date Type Department Care Team Description 09/20/2024 10:08 AM CDT - 09/20/2024 11:59 PM CDT Hospital Encounter [facility] [address] [place] [address] Malignant neoplasm of colon, unspecified part of colon (HCC) Discharge Disposition: Discharge to home or self care 08/18/2024 11:00 AM CDT Office Visit [facility] Rad[facility] Oncology [address] [place] [address] Bryanna Hall NP Prostate cancer (HCC) 08/09/2024 Telephone [facility] [address] [facility] [address] [place] [phone] Gilmer Menezes MD 08/01/2024 Telephone [facility] [address] [place] [address] Henrry Darby RN 07/27/2024 Orders Only [facility] [address] [place] [address] Bryanna Hall NP 07/08/2024 Telephone [facility] [address] [place] [address] Emily Lind MLT 07/07/2024 Orders Only [facility] [address] [place] [phone] Moraima Jacob, RN Malignant neoplasm of colon, unspecified part of colon (HCC) (Primary Dx) 07/05/2024 12:00 PM INSURANCE SALES SUPERVISOR Office Visit [facility] [address] [place] [phone] Gilmer Menezes MD Malignant neoplasm of colon, unspecified part of colon (HCC) (Primary Dx) 07/05/2024 11:30 AM INSURANCE SALES SUPERVISOR Clinical Support [facility] at [address] [address] Malignant neoplasm of colon, unspecified part of colon (HCC) 06/28/2024 11:27 AM INSURANCE SALES SUPERVISOR - 06/28/2024 11:59 PM INSURANCE SALES SUPERVISOR Hospital Encounter [facility] [address] [place] [address] Malignant neoplasm of colon, unspecified part of colon (HCC) Discharge Disposition: Discharge to home or self care from Last 3 Months Surgical History Surgery Date Site/Laterality Comments CAROTID ENARTERECTOMYY 06/11/2019 - 07/09/2019 right (pt reports left is approx 70% blocked-monitoring) CARDIAC STENT PLACEMENT 11/09/2019 - 12/09/2019 Dr. Chintan Spears with [facility] in [place], [place] BACK SURGERY not a fusion/ for stenosis of spine CORONARY ARTERY BYPASS GRAFT 05/11/1992 - 05/10/1993 COLONOSCOPY W/ BIOPSIES 08/31/2023 PROSTATECTOMY 05/11/2020 - 05/10/2021 LUMBAR SPINE SURGERY 07/13/2023 US GUIDED PARACENTESIS 08/02/2019 N/A PORT PLACEMENT CHEST >5 YEARS 12/28/2023 N/A SUPERFICIAL BONE BIOPSY 03/14/2024 N/A CARDIAC SURGERY COLON SURGERY Medical History Medical History Date Comments [...] on file Legal Sex Male 3:59 PM INSURANCE SALES SUPERVISOR Gender Identity Male 01/29/2021 1:19 PM CDT [...] cm (5' 8.5 ) 04/19/2024 10:48 AM INSURANCE SALES SUPERVISOR Body Mass Index 32.07 04/19/2024 10:48 AM INSURANCE SALES SUPERVISOR Plan of Treatment Health Maintenance Due Date [...] history exists Medical Devices Implanted Type Area Agricultural Pilot Device Identifier Shelf Expiration Date Model / Serial / Lot Stents Implanted:Qty: 11 Bilateral: Heart Description:2004,2007,2009,2 014,2014,2019,2020 Stents and bypass 1993 [employer] Xcela Power Port 8fr [id number] - [id number] Implanted:Qty: 1 on 12/28/2023 at [facility] [employer] 06/20/2028 [id number] / / [id number] Explanted Type Area Agricultural Pilot Device Identifier Shelf Expiration Date Model / Serial / Lot [employer] Eloy 180-223 Contour 6fr 26cm Large Inner Lumen Low Profile Bladder Melvin Taper Latex Free - [id number] Implanted:Qty: 1 on 09/13/2020 by Esdras Conway MD at [facility] Explanted:Qty: 1 on 10/16/2020 at [facility] [employer] Eloy 05/21/2023 180-223 / / [id number] Procedures Procedure Name Priority Date/Time Associated Diagnosis Comments POCT CREATININE FOR CONTRAST EVALUATION Routine 09/20/2024 10:27 AM CDT PSA DIAGNOSTIC Routine 07/27/2024 2:53 PM CDT EGFR Routine 07/05/2024 11:40 AM INSURANCE SALES SUPERVISOR Malignant neoplasm of colon, unspecified part of colon (HCC) MANUAL DIFFERENTIAL Routine 07/05/2024 1 1:40 AM INSURANCE SALES SUPERVISOR Malignant neoplasm of colon, unspecified part of colon (HCC) DIFFERENTIAL AUTO Routine 07/05/2024 11: 40 AM INSURANCE SALES SUPERVISOR Malignant neoplasm of colon, unspecified part of colon (HCC) CBC WITH AUTO DIFFERENTIAL Routine 07/05/2024 11:40 AM INSURANCE SALES SUPERVISOR Malignant neoplasm of colon, unspecified part of colon (HCC) CEA Routine 07/05/2024 11:40 AM INSURANCE SALES SUPERVISOR Malignant neoplasm of colon, unspecified part of colon (HCC) COMPREHENSIVE METABOLIC PANEL Routine 07/05/2024 11:40 AM INSURANCE SALES SUPERVISOR Malignant neoplasm of colon, unspecified part of colon (HCC) FERRITIN Routine 07/05/2024 11:40 AM INSURANCE SALES SUPERVISOR Malignant neoplasm of colon, unspecified part of colon (HCC) IRON PROFILE W/ IBC Routine 07/05/2024 1 1:40 AM INSURANCE SALES SUPERVISOR Malignant neoplasm of colon, unspecified part of colon (HCC) CT CHEST ABDOMEN PELVIS W CONTRAST Schedule Routine, Read Routine (OP Routine) 06/28/2024 11:51 AM INSURANCE SALES SUPERVISOR Malignant neoplasm of colon, unspecified part of colon (HCC) from Last 3 Months Results * POCT creatinine for contrast evaluation (09/20/2024 10:27 AM CDT) Creatinine POC 1.30 0.80 - 1.30 mg/dL Comment:Testing performed by : [facility], [address] [place] [address]., [address] Blood 09/20/2024 10:2 7 AM CDT 09/20/2024 10:27 AM CDT us Jonelle Deluna MD POINT OF CARE TEST ORDERAB LES Final Result MEGAN [address] [facility] [place] [address] * PSA diagnostic (07/27/2024 2:53 PM CDT) Blood us Bryanna Hall NP LAB BLOOD ORDERABLES Edited R esult - Final [facility] [address] [place] [address], [facility] * eGFR (07/05/2024 11:40 AM INSURANCE SALES SUPERVISOR) eGFR 63 >=60 mL/min/1. 73 m2 Comment: [...] was last reviewed 2021. Testing performed by: [facility], [address] [place] [address]., [address] Blood 07/05/2024 11:4 0 AM INSURANCE SALES SUPERVISOR 07/05/2024 11:43 AM INSURANCE SALES SUPERVISOR us Gilmer Menezes MD LAB BLOOD ORDERABLES Final Result MEGAN [address] [facility] Department of Laboratories [place], [place] [id number] * Differential, auto (07/05/2024 11:40 AM INSURANCE SALES SUPERVISOR) Neutrophil abs 3.6 1.5 - 6.5 K/cumm Comment:Testing performed by : [address] [address] Imm gran abs 0.0 0.0 - 0.1 K/cumm MEGAN Comment:Testing performed by : [address] [address] Lymphocyte abs 0.9 0.8 - 3.3 K/cumm EMGAN Comment:Testing performed by : [address] [address] Monocyte abs 0.6 0.2 - 0.8 K/cumm MEGAN Comment:Testing performed by : [address] [address] Eosinophil abs 0.0 0.0 - 0.5 K/cumm MEGAN Comment:Testing performed by : [address] [address] Basophil abs 0.0 0.0 - 0.1 K/cumm MEGAN Comment:Testing performed by : [address] [address] Neutrophil pct 69.2 % MEGAN Comment: Interpretive Data Percent cell count reference ranges are not reported, since discordance with absolute values may lead to misinterpretation of CBC data. Current Interpretive Data was last revised on 2017. Testing performed by: [address] [address] Imm gran pct 0.2 % MEGAN Comment: Interpretive Data Percent cell count reference ranges are not reported, since discordance with absolute values may lead to misinterpretation of CBC data. Current Interpretive Data was last revised on 2017. Testing performed by: [address] [address] Lymphocyte pct 17.7 % MEGAN Comment: Interpretive Data Percent cell count reference ranges are not reported, since discordance with absolute values may lead to misinterpretation of CBC data. Current Interpretive Data was last revised on 2017. Testing performed by: [address] [address] Monocyte pct 11.9 % MEGAN Comment: Interpretive Data Percent cell count reference ranges are not reported, since discordance with absolute values may lead to misinterpretation of CBC data. Current Interpretive Data was last revised on 2017. Testing performed by: [address] [address] Eosinophil pct 0.6 % MEGAN Comment: Interpretive Data Percent cell count reference ranges are not reported, since discordance with absolute values may lead to misinterpretation of CBC data. Current Interpretive Data was last revised on 2017. Testing performed by: [address] [address] Basophil pct 0.4 % MEGAN Comment: Interpretive Data Percent cell count reference ranges are not reported, since discordance with absolute values may lead to misinterpretation of CBC data. Current Interpretive Data was last revised on 2017. Testing performed by: [address] [address] Blood 07/05/2024 11:4 0 AM INSURANCE SALES SUPERVISOR 07/05/2024 11:43 AM INSURANCE SALES SUPERVISOR Gilmer Menezes MD LAB BLOOD ORDERABLES Final Result [facility] [address] [facility] Department of Laboratories [place], [place] [id number] * Iron profile w/ IBC (07/05/2024 11:40 AM INSURANCE SALES SUPERVISOR) Iron 72 50 - 150 mcg/dL Comment:Testing performed by : [address] [address] TIBC 314 250 - 400 mcg/dL MEGAN Comment:Testing performed by : [address] [address] Transferrin saturation 23 20 - 50 % MEGAN Comment:Testing performed by : [address] [address] Blood 07/05/2024 11:4 0 AM INSURANCE SALES SUPERVISOR 07/05/2024 1:51 PM INSURANCE SALES SUPERVISOR Gilmer Menezes MD LAB BLOOD ORDERABLES Final Result MEGAN [address] [facility] Department [place] [address] * (ABNORMAL) CBC with auto differential (07/05/2024 11:40 AM INSURANCE SALES SUPERVISOR) WBC 5.2 3.8 - 9.9 K/cumm Comment:Testing performed by : [address] [address] Hgb 12.8(L) 13.0 - 17.5 g/dL MEGAN Comment:Testing performed by : [address] [address] Hct 37.0(L) 38.9 - 50.3 % MEGAN Comment:Testing performed by : [address] [address] Plt 143(L) 150 - 400 K/cumm MEGAN Comment:Testing performed by : [address] [address] MPV 9.6 9.1 - 12.3 fL MEGAN Comment:Testing performed by : [address] [address] RBC 4.05(L) 4.30 - 5.80 M/cumm MEGAN Comment:Testing performed by : [address] [address] MCV 91.4 81.3 - 96.4 fL MEGAN Comment:Testing performed by : [address] [address] MCH 31.6 27.1 - 33.3 pg MEGAN Comment:Testing performed by : [address] [address] MCHC 34.6 32.3 - 35.7 g/dL MEGAN Comment:Testing performed by : [address] [address] RDW CV 15.8(H) 11.1 - 14.9 % MEGAN RIZO Comment:Testing performed by : [address] [address] RDW SD 52.7(H) 35.7 - 48.1 fL MEGAN Comment:Testing performed by : [address] [address] NRBC abs 0.00 0.00 - 0.01 K/cumm MEGAN Comment:Testing performed by : [address] [address] Blood 07/05/2024 11:4 0 AM INSURANCE SALES SUPERVISOR 07/05/2024 11:43 AM INSURANCE SALES SUPERVISOR Gilmer Menezes MD LAB BLOOD ORDERABLES Final Result [place] [id number] [facility] Department of Laboratories [place], [place] [phone] * Manual Differential (07/05/2024 11:40 AM INSURANCE SALES SUPERVISOR) Differential Auto Comment:Testing performed by : [address] [address] Neutrophil abs 3.6 1.5 - 6.5 K/cumm MEGAN Comment:Testing performed by : [address] [address] Imm gran abs 0.0 0.0 - 0.1 K/cumm MEGAN Comment:Testing performed by : [address] [address] Lymphocyte abs 0.9 0.8 - 3.3 K/cumm MEGAN Comment:Testing performed by : [address] [address] Monocyte abs 0.6 0.2 - 0.8 K/cumm MEGAN Comment:Testing performed by : [address] [address] Eosinophil abs 0.0 0.0 - 0.5 K/cumm MEGAN Comment:Testing performed by : [address] [address] Basophil abs 0.0 0.0 - 0.1 K/cumm MEGAN Comment:Testing performed by : [address] [address] Neutrophil pct 69.2 % [facility] Comment: Interpretive Data Percent cell count reference ranges are not reported, since discordance with absolute values may lead to misinterpretation of CBC data. Current Interpretive Data was last revised on 2017. Testing performed by: [address] [address] Imm gran pct 0.2 % [facility] Comment: Interpretive Data Percent cell count reference ranges are not reported, since discordance with absolute values may lead to misinterpretation of CBC data. Current Interpretive Data was last revised on 2017. Testing performed by: [address] [address] Lymphocyte pct 17.7 % [facility] Comment: Interpretive Data Percent cell count reference ranges are not reported, since discordance with absolute values may lead to misinterpretation of CBC data. Current Interpretive Data was last revised on 2017. Testing performed by: [address] [address] Monocyte pct 11.9 % [facility] Comment: Interpretive Data Percent cell count reference ranges are not reported, since discordance with absolute values may lead to misinterpretation of CBC data. Current Interpretive Data was last revised on 2017. Testing performed by: [address] [address] Eosinophil pct 0.6 % MEGAN Comment: Interpretive Data Percent cell count reference ranges are not reported, since discordance with absolute values may lead to misinterpretation of CBC data. Current Interpretive Data was last revised on 2017. Testing performed by: [address] [address] Basophil pct 0.4 % MEGAN Comment: Interpretive Data Percent cell count reference ranges are not reported, since discordance with absolute values may lead to misinterpretation of CBC data. Current Interpretive Data was last revised on 2017. Testing performed by: [address] [address] RBC morphology Consistent with RBC Indicies MEGAN RIZO Comment:Testing performed by : [address] [address] Platelet estimate Adequate MEGAN RIZO Comment:Testing performed by : [address] [address] Blood 07/05/2024 11:4 0 AM INSURANCE SALES SUPERVISOR 07/05/2024 11:43 AM INSURANCE SALES SUPERVISOR Gilmer Menezes MD LAB BLOOD ORDERABLES Final Result Performing Organization Address [facility] Co de Phone Number [address] [place] [address] * Ferritin (07/05/2024 11:40 AM INSURANCE SALES SUPERVISOR) Ferritin 182 30 - 400 ng/mL Comment:Testing performed by : [address] [address] Blood 07/05/2024 11:4 0 AM INSURANCE SALES SUPERVISOR 07/05/2024 1:51 PM INSURANCE SALES SUPERVISOR Gilmer Menezes MD LAB BLOOD ORDERABLES Final Result Performing Organization Address [facility] de Phone Number [address] [address] * CEA (07/05/2024 11:40 AM INSURANCE SALES SUPERVISOR) CEA 2.4 <=5.0 ng/mL Comment: Interpretive Data: Reference Range: Non-Smokers: 0.0 5.0 ng/mL Smokers: 0.0 6.5 ng/mL The Alex CEA assay procedure was used. Results from different manufacturers or methods may not be comparable. Serial testing should be performed using the same method. Current interpretive data was last revised 2022. Testing performed by: [address] [address] Blood 07/05/2024 11:4 0 AM INSURANCE SALES SUPERVISOR 07/05/2024 1:51 PM INSURANCE SALES SUPERVISOR us Gilmer Menezes MD LAB BLOOD ORDERABLES Final Result MEGAN [address] [facility] [place] [address] * (ABNORMAL) Comprehensive metabolic panel (07/05/2024 11:40 AM INSURANCE SALES SUPERVISOR) Sodium 134(L) 135 - 145 mmol/L Comment:Testing performed by : [address] [address] Potassium, pl 3.7 3.3 - 4.9 mmol/L MEGAN RIZO Comment:Testing performed by : [address] [address] Chloride 95(L) 97 - 110 mmol/L [id number]|2024-09-21 11:04:00|2024-09-21 11:03:00|XMS_ITS|NADIR PULLIAM|External Medical Summaries|[id number]|" Referral Summary Created on: September 21, 2024 Santo Miller : 1950 Sex: Male Author Organization [facility] Address [address] [place] [address] Care Team Providers Care Satellite Tv Installer Name Role Phone Timbo Cardoso MD Unavailable Mike Ledezma MD PhD Unavailable [phone] Rolando Kaidenkatie Stafford DO Primary Care Provider Edelmira Alexandre NP Unavailable [phone] Jonelle Deluna MD Unavailable Gilmer Menezes MD Unavailable [phone] Encounters Date Type Department Care Team Description 09/20/2024 10:08 AM CDT - 09/20/2024 11:59 PM CDT Hospital Encounter [facility] [address] [address] Malignant neoplasm of colon, unspecified part of colon (HCC) Discharge Disposition: Discharge to home or self care 08/18/2024 11:00 AM CDT Office Visit [facility] Rad[facility] Oncology [address] [place] [address] Bryanna Hall NP Prostate cancer (HCC) 08/09/2024 Telephone [facility] [address] [place] [phone] Gilmer Menezes MD 08/01/2024 Telephone [facility] [address] [place] [address] Henrry Darby RN 07/27/2024 Orders Only [facility] [address] [place] [address] Bryanna Hall NP 07/08/2024 Telephone [facility] [address] [place] [address] Emily Lind MLT 07/07/2024 Orders Only [facility] [address] [place] [address] [address] [place] [address] Moraima Jacob RN Malignant neoplasm of colon, unspecified part of colon (HCC) (Primary Dx) 07/05/2024 11:30 AM INSURANCE SALES SUPERVISOR Clinical Support [facility] at [address] [address] Malignant neoplasm of colon, unspecified part of colon (HCC) 07/05/2024 12:00 PM INSURANCE SALES SUPERVISOR Office Visit [facility] On[facility] [address] [facility] [address] [place] [phone] Gilmer Menezes MD Malignant neoplasm of colon, unspecified part of colon (HCC) (Primary Dx) 06/28/2024 11:27 AM INSURANCE SALES SUPERVISOR - 06/28/2024 11:59 PM INSURANCE SALES SUPERVISOR Hospital Encounter [facility] [address] [place] [address] Malignant neoplasm of colon, unspecified part of [...] pain 11/02/2023 Coronary artery disease invo lving craig coronary artery of craig heart 05/02/2023 Iron deficiency anemia 05/12/2022 AV [...] (08/15/2020): Added automatically from request for surgery [id number] Assessment & Plan (02/12/2022 11:29 AM CDT): [...] (07/12/2020): Added automatically from request for surgery [id number] Rising PSA following treatme nt for malignant neoplasm of prostate 04/20/2020 Overview (04/20/2020): Added automatically from request for surgery [id number] Elevated PSA 04/20/2020 Overview (03/07/2024): Added automatically from request for surgery [id number] Edema of left lower extremity 02/28/2020 History [...] on file Legal Sex Male 3:59 PM INSURANCE SALES SUPERVISOR Gender Identity Male 01/29/2021 1:19 PM CDT [...] cm (5' 8.5 ) 04/19/2024 10:48 AM INSURANCE SALES SUPERVISOR Body Mass Index 32.07 04/19/2024 10:48 AM INSURANCE SALES SUPERVISOR Plan of Treatment Not on file Medical Devices Implanted Type Area Agricultural Pilot Device Identifier Shelf Expiration Date Model / Serial / Lot Stents Implanted:Qty: 11 Bilateral: Heart Description:2005,2008,2009,2 014,2015,2019,2020 Stents and bypass 1993 [employer] Port 8fr [id number] - [id number] Implanted:Qty: 1 on 12/28/2023 at [facility] [employer] 06/20/2028 [id number] / / [id number] Explanted Type Area Agricultural Pilot Device Identifier Shelf Expiration Date Model / Serial / Lot [employer] 180-223 Contour 6fr 26cm Large Inner Lumen Low Profile Bladder [employer] Latex Free - [id number] Implanted:Qty: 1 on 09/13/2020 by Esdras Conway MD at [facility] Explanted:Qty: 1 on 10/16/2020 at [facility] [employer] 05/21/2023 180-223 / / [id number] Procedures Procedure Name Priority Date/Time Associated Diagnosis Comments POCT CREATININE FOR CONTRAST EVALUATION Routine 09/20/2024 10:27 AM CDT PSA DIAGNOSTIC Routine 07/27/2024 2:53 PM CDT EGFR Routine 07/05/2024 11:40 AM INSURANCE SALES SUPERVISOR Malignant neoplasm of colon, unspecified part of colon (HCC) MANUAL DIFFERENTIAL Routine 07/05/2024 1 1:40 AM INSURANCE SALES SUPERVISOR Malignant neoplasm of colon, unspecified part of colon (HCC) DIFFERENTIAL AUTO Routine 07/05/2024 11: 40 AM INSURANCE SALES SUPERVISOR Malignant neoplasm of colon, unspecified part of colon (HCC) CBC WITH AUTO DIFFERENTIAL Routine 07/05/2024 11:40 AM INSURANCE SALES SUPERVISOR Malignant neoplasm of colon, unspecified part of colon (HCC) CEA Routine 07/05/2024 11:40 AM INSURANCE SALES SUPERVISOR Malignant neoplasm of colon, unspecified part of colon (HCC) COMPREHENSIVE METABOLIC PANEL Routine 07/05/2024 11:40 AM INSURANCE SALES SUPERVISOR Malignant neoplasm of colon, unspecified part of colon (HCC) FERRITIN Routine 07/05/2024 11:40 AM INSURANCE SALES SUPERVISOR Malignant neoplasm of colon, unspecified part of colon (HCC) IRON PROFILE W/ IBC Routine 07/05/2024 1 1:40 AM INSURANCE SALES SUPERVISOR Malignant neoplasm of colon, unspecified part of colon (HCC) CT CHEST ABDOMEN PELVIS W CONTRAST Schedule Routine, Read Routine (OP Routine) 06/28/2024 11:51 AM INSURANCE SALES SUPERVISOR Malignant neoplasm of colon, unspecified part of colon (HCC) from Last 3 Months Results * POCT creatinine for contrast evaluation (09/20/2024 10:27 AM CDT) Creatinine POC 1.30 0.80 - 1.30 mg/dL Comment:Testing performed by : [facility], [address] [place] [address]., [address] Blood 09/20/2024 10:2 7 AM CDT 09/20/2024 10:27 AM CDT us Jonelle Deluna MD POINT OF CARE TEST ORDERAB LES Final Result [place] [id number] [facility] [place] [address] * PSA diagnostic (07/27/2024 2:53 PM CDT) Blood us Bryanna Hall NP LAB BLOOD ORDERABLES Edited R esult - Final [facility] [address] [place] [address] * eGFR (07/05/2024 11:40 AM INSURANCE SALES SUPERVISOR) eGFR 63 >=60 mL/min/1. 73 m2 Comment: [...] was last reviewed 2021. Testing performed by: [address] [address] Blood 07/05/2024 11:4 0 AM INSURANCE SALES SUPERVISOR 07/05/2024 11:43 AM INSURANCE SALES SUPERVISOR Gilmer Menezes MD LAB BLOOD ORDERABLES Final Result MEGAN [address] [place] [address] * Differential, auto (07/05/2024 11:40 AM INSURANCE SALES SUPERVISOR) Neutrophil abs 3.6 1.5 - 6.5 K/cumm Comment:Testing performed by : [address] [address] Imm gran abs 0.0 0.0 - 0.1 K/cumm MEGAN Comment:Testing performed by : [address] [address] Lymphocyte abs 0.9 0.8 - 3.3 K/cumm MEGAN Comment:Testing performed by : [address] [address] Monocyte abs 0.6 0.2 - 0.8 K/cumm MEGAN Comment:Testing performed by : [address] [address] Eosinophil abs 0.0 0.0 - 0.5 K/cumm MEGAN Comment:Testing performed by : [address] [address] Basophil abs 0.0 0.0 - 0.1 K/cumm MEGAN Comment:Testing performed by : [address] [address] Neutrophil pct 69.2 % [facility] Comment: Interpretive Data Percent cell count reference ranges are not reported, since discordance with absolute values may lead to misinterpretation of CBC data. Current Interpretive Data was last revised on 2017. Testing performed by: [address] [address] Imm gran pct 0.2 % [facility] Comment: Interpretive Data Percent cell count reference ranges are not reported, since discordance with absolute values may lead to misinterpretation of CBC data. Current Interpretive Data was last revised on 2017. Testing performed by: [address] [address] Lymphocyte pct 17.7 % [facility] Comment: Interpretive Data Percent cell count reference ranges are not reported, since discordance with absolute values may lead to misinterpretation of CBC data. Current Interpretive Data was last revised on 2017. Testing performed by: [address] [address] Monocyte pct 11.9 % [facility] Comment: Interpretive Data Percent cell count reference ranges are not reported, since discordance with absolute values may lead to misinterpretation of CBC data. Current Interpretive Data was last revised on 2017. Testing performed by: [address] [address] Eosinophil pct 0.6 % [facility] Comment: Interpretive Data Percent cell count reference ranges are not reported, since discordance with absolute values may lead to misinterpretation of CBC data. Current Interpretive Data was last revised on 2017. Testing performed by: [address] [address] Basophil pct 0.4 % [facility] Comment: Interpretive Data Percent cell count reference ranges are not reported, since discordance with absolute values may lead to misinterpretation of CBC data. Current Interpretive Data was last revised on 2017. Testing performed by: [address] [address] Blood 07/05/2024 11:4 0 AM INSURANCE SALES SUPERVISOR 07/05/2024 11:43 AM INSURANCE SALES SUPERVISOR Gilmer Menezes MD LAB BLOOD ORDERABLES Final Result Performing Organization Address [facility] de Phone Number [address] [address] * Iron profile w/ IBC (07/05/2024 11:40 AM INSURANCE SALES SUPERVISOR) Pathologist [facility] Iron 72 50 - 150 mcg/dL Comment:Testing performed by : [address] [address] TIBC 314 250 - 400 mcg/dL MEGAN RIZO Comment:Testing performed by : [address] [address] Transferrin saturation 23 20 - 50 % MEGAN RIZO Comment:Testing performed by : [address] [address] Blood 07/05/2024 11:4 0 AM INSURANCE SALES SUPERVISOR 07/05/2024 1:51 PM INSURANCE SALES SUPERVISOR Gilmer Menezes MD LAB BLOOD ORDERABLES Final Result Performing Organization Address [facility] de Phone Number [address] [address] * (ABNORMAL) CBC with auto differential (07/05/2024 11:40 AM INSURANCE SALES SUPERVISOR) [facility] WBC 5.2 3.8 - 9.9 K/cumm Comment:Testing performed by : [address] [address] Hgb 12.8(L) 13.0 - 17.5 g/dL MEGAN RIZO Comment:Testing performed by : [address] [address] Hct 37.0(L) 38.9 - 50.3 % MEGAN RIZO Comment:Testing performed by : [address] [address] Plt 143(L) 150 - 400 K/cumm MEGAN RIZO Comment:Testing performed by : [address] [address] MPV 9.6 9.1 - 12.3 fL MEGAN RIZO Comment:Testing performed by : [address] [address] RBC 4.05(L) 4.30 - 5.80 M/cumm MEGAN RIZO Comment:Testing performed by : [address] [address] MCV 91.4 81.3 - 96.4 fL MEGAN Comment:Testing performed by : [address] [address] MCH 31.6 27.1 - 33.3 pg MEGAN Comment:Testing performed by : [address], [address] MCHC 34.6 32.3 - 35.7 g/dL MEGAN Comment:Testing performed by : [address] [address] RDW CV 15.8(H) 11.1 - 14.9 % MEGAN Comment:Testing performed by : [address] [address] RDW SD 52.7(H) 35.7 - 48.1 fL MEGAN Comment:Testing performed by : [address] [address] NRBC abs 0.00 0.00 - 0.01 K/cumm MEGAN Comment:Testing performed by : [address] [address] Blood 07/05/2024 11:4 0 AM INSURANCE SALES SUPERVISOR 07/05/2024 11:43 AM INSURANCE SALES SUPERVISOR us Gilmer Menezes MD LAB BLOOD ORDERABLES Final Result MEGAN [address] [facility] [place] [address] * Manual Differential (07/05/2024 11:40 AM INSURANCE SALES SUPERVISOR) Differential Auto Comment:Testing performed by : [address] [address] Neutrophil abs 3.6 1.5 - 6.5 K/cumm [facility] Comment:Testing performed by : [address], [place]., [address] Imm gran abs 0.0 0.0 - 0.1 K/cumm [facility] Comment:Testing performed by : [address], [place]., [address] Lymphocyte abs 0.9 0.8 - 3.3 K/cumm [facility] Comment:Testing performed by : [address] [address] Monocyte abs 0.6 0.2 - 0.8 K/cumm [facility] Comment:Testing performed by : [address] [address] Eosinophil abs 0.0 0.0 - 0.5 K/cumm [facility] Comment:Testing performed by : [address], [place]., [address] Basophil abs 0.0 0.0 - 0.1 K/cumm [facility] Comment:Testing performed by : [address] [address] Neutrophil pct 69.2 % [facility] Comment: Interpretive Data Percent cell count reference ranges are not reported, since discordance with absolute values may lead to misinterpretation of CBC data. Current Interpretive Data was last revised on 2017. Testing performed by: [address] [address] Imm gran pct 0.2 % [facility] Comment: Interpretive Data Percent cell count reference ranges are not reported, since discordance with absolute values may lead to misinterpretation of CBC data. Current Interpretive Data was last revised on 2017. Testing performed by: [address], [place]., [address] Lymphocyte pct 17.7 % [facility] Comment: Interpretive Data Percent cell count reference ranges are not reported, since discordance with absolute values may lead to misinterpretation of CBC data. Current Interpretive Data was last revised on 2017. Testing performed by: [address] [address] Monocyte pct 11.9 % MEGAN Comment: Interpretive Data Percent cell count reference ranges are not reported, since discordance with absolute values may lead to misinterpretation of CBC data. Current Interpretive Data was last revised on 2017. Testing performed by: [address] [address] Eosinophil pct 0.6 % MEGAN Comment: Interpretive Data Percent cell count reference ranges are not reported, since discordance with absolute values may lead to misinterpretation of CBC data. Current Interpretive Data was last revised on 2017. Testing performed by: [address] [address] Basophil pct 0.4 % MEGAN Comment: Interpretive Data Percent cell count reference ranges are not reported, since discordance with absolute values may lead to misinterpretation of CBC data. Current Interpretive Data was last revised on 2017. Testing performed by: [address] [address] RBC morphology Consistent with RBC Indicies MEGAN Comment:Testing performed by : [address] [address] Platelet estimate Adequate MEGAN Comment:Testing performed by : [address] [address] Blood 07/05/2024 11:4 0 AM INSURANCE SALES SUPERVISOR 07/05/2024 11:43 AM INSURANCE SALES SUPERVISOR us Gilmer Menezes MD LAB BLOOD ORDERABLES Final Result MEGAN [address] [facility] Department [place] [address] * Ferritin (07/05/2024 11:40 AM INSURANCE SALES SUPERVISOR) [facility] Signature Ferritin 182 30 - 400 ng/mL Comment:Testing performed by : [address] [address] Blood 07/05/2024 11:4 0 AM INSURANCE SALES SUPERVISOR 07/05/2024 1:51 PM INSURANCE SALES SUPERVISOR Gilmer Menezes MD LAB BLOOD ORDERABLES Final Result Performing Organization Address [facility] de Phone Number MEGAN [address] [place] [address] * CEA (07/05/2024 11:40 AM INSURANCE SALES SUPERVISOR) [facility] CEA 2.4 <=5.0 ng/mL Comment: Interpretive Data: Reference Range: Non-Smokers: 0.0 5.0 ng/mL Smokers: 0.0 6.5 ng/mL The Alex CEA assay procedure was used. Results from different manufacturers or methods may not be comparable. Serial testing should be performed using the same method. Current interpretive data was last revised 2022. Testing performed by: [address] [address] Blood 07/05/2024 11:4 0 AM INSURANCE SALES SUPERVISOR 07/05/2024 1:51 PM INSURANCE SALES SUPERVISOR Gilmer Menezes MD LAB BLOOD ORDERABLES Final Result Performing Organization Address [facility] de Phone Number MEGAN [address] [place] [address] * (ABNORMAL) Comprehensive metabolic panel (07/05/2024 11:40 AM INSURANCE SALES SUPERVISOR) [facility] Sodium 134(L) 135 - 145 mmol/L Comment:Testing performed by : [address] [address] Potassium, pl 3.7 3.3 - 4.9 mmol/L MEGAN Comment:Testing performed by : [address] [address] Chloride 95(L) 97 - 110 mmol/L MEGAN Comment:Testing performed by : [address] [address] CO2 27 22 - 32 mmol/L MEGAN Comment:Testing performed by : [address] [address] Anion gap 12 2 - 15 mmol/L MEGAN Comment:Testing performed by : [address] [address] BUN 21 6 - 25 mg/dL MEGAN Comment:Testing performed by : [address], [place]., [address] Creatinine 1.20 0.80 - 1.30 mg/dL MEGAN Comment:Testing performed by : [address] [address] Glucose 138 70 - 199 mg/dL MEGAN [...] was last revised 2022. Testing performed by: [address] [address] Calcium 9.8 8.5 - 10.3 mg/dL MEGAN Comment:Testing performed by : [address] [address] Bilirubin, total 0.7 0.1 - 1.2 mg/dL MEGAN Comment:Testing performed by : [address] [address] Protein, pl 6.1(L) 6.5 - 8.5 g/dL MEGAN Comment:Testing performed by : [address] [address] Albumin 4.1 3.5 - 5.0 g/dL MEGAN Comment:Testing performed by : [address] [address] Alk phos 86 40 - 130 Units/L MEGAN Comment:Testing performed by : [address] [address] ALT 16 7 - 55 Units/L MEGAN RIZO Comment:Testing performed by : [facility], [address] [place] [address]., [address] AST 15 10 - 50 Units/L MEGAN RIZO Comment:Testing performed by : [facility], [address] [place] [address], [place]., [address] Blood 07/05/2024 11:4 0 AM INSURANCE SALES SUPERVISOR 07/05/2024 11:43 AM INSURANCE SALES SUPERVISOR us Gilmer Menezes MD LAB BLOOD ORDERABLES Final Result MEGAN RIZO [address] [facility] [place] [address] [phone]
--- OUTSIDE RECORDS SUMMARY | 2024-09-21 11:04 | XMS_ITS | Encounter Summary ---
Author Organization [facility] Healthcare Address [facility] [place] [address] Care Team Providers Care Inclusion Teacher Name Role Phone Giuseppe Kulkarni MD Primary Care Provider Timbo Cardoso MD Unavailable Mike Ledezma MD PhD Unavailable [phone] Esdras Conway MD Unavailable [phone] Kaiden Marshall DO Primary Care Provider Edelmira Alexandre NP Unavailable [phone] Jonelle Deluna MD Unavailable [phone] Gilmer Menezes MD Unavailable [phone] Encounter Details Date Type Department Care Team (Late st Contact Info) Description 07/04/2020 Telephone [facility] [address] [place] [address] Jonelle Benitez, RT Social History Tobacco Use Types Packs/Day Years Used Date Smoking Tobacco: Never Smokeless Tobacco: Never Alcohol Use Standard Drinks/Week Comments Yes 0 (1 standard drink = 0.6 oz pur e alcohol) very rare wine Sex and Gender Information Value Date Recorded Sex Assigned at Not on file Legal Sex Male 3:59 PM CLEAT MAKER Gender Identity Male 01/29/2021 1:19 PM CDT Sexual Orientation Not on file documented as of this encounter Plan of Treatment Not on file documented as of this encounter Visit Diagnoses Not on filedocumented in this encounter Care Teams Inclusion Teacher Relationship Specialty Start Date End Date Giuseppe Kulkarni MD PCP - General Family Medicine 03/20/20 10/09/21 Rolando Kaidenkatie PradohDO [address] [place] [address] PCP - General Family Medicine 10/10/21 Timbo Cardoso MD Consulting Physician Neurology 10/18/20 Mike Ledezma MD PhD [address] [place] [address] Radiation Oncologist Radiation Oncology 02/21/21 Esdras Conway MD [address] [place] [address] Referring Physician Urology 02/21/21 04/20/24 Edelmira Alexandre NP [address] [place] [address] Registered Nurse Family Medicine 09/08/23 Jonelle Deluna MD [facility] [address] [facility] [phone] [place] [address] Surgeon Colon and Rectal Surgery 09/29/23 [place] [address] [place] [address] [place] [address] Medical Oncologist/Separator Operator [employer] Medical Oncology 11/24/23 documented as of this encounter
--- OUTSIDE RECORDS SUMMARY | 2024-09-21 11:04 | XMS_ITS | Encounter Summary ---
Author Organization [facility] Address [address] [place] [address] Care Team Providers Care Manager Payroll Name Role Phone Chintan Spears MD Unavailable [phone] Angela Miramontes Unavailable [phone] Cabrera Crouch MD Unavailable [phone] Teresa Morin APRN, NP-C Unavailable Ang Hudson MD Unavailable Kaiden Marshall DO Primary Care Provider [phone] Kaiden Marshall DO Primary Care Provider [phone] Matteo Denise MD Unavailable [phone] Jonelle Deluna MD Unavailable [phone] Houston Beaver MD Unavailable [phone] Encounter Details Date Type Department Care Team (Late st Contact Info) Description 01/15/2022 Hospital Follow-up Call [facility] [address] [place] [address] Lola Barillas RN Social History Tobacco Use Types Packs/Day Years Used Date Smoking Tobacco: Never Smokeless Tobacco: Never Alcohol Use Standard Drinks/Week Comments Yes 0 (1 standard drink = 0.6 oz pur e alcohol) rarely Sex and Gender Information Value Date Recorded Sex Assigned at Male 05/25/2024 9:04 AM FAMILY SERVICES SPECIALIST Legal Sex Male 9:59 PM CDT [...] Appointment [facility] [address] [place] [address] Teresa Morin, SOLAR TECH, QUALITY ASSURANCE COORDINATOR-C [address] [facility] [address] [place] [address] 12/27/2024 9:[address] [facility] [address] [place] [address] Ang Hudson MD [address] [facility] [address] [place] [address] 06/02/2025 10:00 AM FAMILY SERVICES SPECIALIST Office Visit [facility] el [address] [place] [address] Teresa Morin APRN, QUALITY ASSURANCE COORDINATOR-C [address] [facility] [address] [place] [address] documented as of this encounter [...] on filedocumented in this encounter Care Teams Manager Payroll Relationship Specialty Start Date End Date Kaiden Marshall DO [address] [place] [address] PCP - General FAMILY PRACTICE 10/15/21 11/11/22 Kaiden Marshall DO [address] [place] [address] PCP - General FAMILY PRACTICE 11/12/22 Chintan Spears MD [address] [place] [address] [place] Working Foreman CARDIOVASCULAR DISEASE 01/03/16 12/20/23 Angela Miramontes AGACNP-BC [address] [place], [place] [address] NURSE PRACTITIONER 07/07/19 07/05/23 Cabrera Crouch MD [address] [address] CARDIOTHORACIC SURGERY 10/26/19 4 Teresa Morin APRN, QUALITY ASSURANCE COORDINATOR-C [address] [place] [address] NURSE PRACTITIONER 12/01/19 Ang Hudson MD [address] [place] [address] Vascular/Working Foreman INTERNAL MEDICINE 01/05/20 Matteo Denise MD [address] [place] [address] Consulting Physician ORTHOPAEDIC SURGERY 07/06/23 Jonelle Deluna MD [address] [place] [address] COLON/RECTAL SURGERY 10/06/23 Houston Beaver MD [address] [place] [address] Consulting Physician INTERVENTIONAL CARDIOLOGY 05/25/24 documented as of this encounter
--- OUTSIDE RECORDS SUMMARY | 2024-09-21 11:04 | XMS_ITS | Encounter Summary ---
Author Organization [facility] Address [address] [place] [address] Care Team Providers Care Full Decator Operator Name Role Phone Chintan Spears MD Unavailable [phone] Angela Miramontes- Unavailable [phone] Cabrera Crouch MD Unavailable [phone] Teresa Morin APRN, NP-C Unavailable Ang Hudson MD Unavailable Kaiden Marshall DO Primary Care Provider [phone] Matteo Denise MD Unavailable [phone] Jonelle Deluna MD Unavailable Houston Beaver MD Unavailable Encounter Details Date Type Department Care Team (Late st Contact Info) Description 12/29/2022 Abstract [facility] [address] [place] [address] Chintan Spears MD [address] [place] [address] Social History Tobacco Use Types Packs/Day Years Used Date Smoking Tobacco: Never Smokeless Tobacco: Never Tobacco Cessation:Counseling Given: Not Answered Alcohol Use Standard Drinks/Week Comments Yes 0 (1 standard drink = 0.6 oz pur e alcohol) rarely Sex and Gender Information Value Date Recorded Sex Assigned at Male 05/25/2024 9:04 AM SUGAR PRESSER Legal Sex Male 9:59 PM CDT Gender [...] CDT Appointment [facility] [address] [place] [address] Teresa Morin, PATIENT PLACEMENT COORDINATOR, WATER CARTER-C [address] [facility] [address] [address] 12/27/2024 9:[address] [facility] [address] [place] [address] Ang Hudson MD [address] [facility], [address] [place] [address] 06/02/2025 10:00 AM SUGAR PRESSER Office Visit [facility] [address] [place] [address] Teresa Morin APRN, WATER CARTER-C [address] [facility] [address] [place] [address] documented as of this encounter [...] on filedocumented in this encounter Care Teams Full Decator Operator Relationship Specialty Start Date End Date Kaiden Marshall DO [address] [place] [address] PCP - General FAMILY PRACTICE 11/12/22 Chintan Spears MD [address] [place] [phone] [place] Field Marketing Coordinator CARDIOVASCULAR DISEASE 01/03/16 12/20/23 [facility] [address] [address] NURSE PRACTITIONER 07/07/19 07/05/23 Cabrera Crouch MD [address] [address] CARDIOTHORACIC SURGERY 10/26/19 4 Teresa Morin APRN, WATER CARTER-C [address] [facility] [address] [place] [address] NURSE PRACTITIONER 12/01/19 Ang Hudson MD [address] [facility] [address] [place] [address] Vascular/Field Marketing Coordinator INTERNAL MEDICINE 01/05/20 Matteo Denise MD [address] [place] [address] Consulting Physician ORTHOPAEDIC SURGERY 07/06/23 Jonelle Deluna MD [address] [place] [address] COLON/RECTAL SURGERY 10/06/23 Houston Beaver MD [address] [place] [address] Consulting Physician INTERVENTIONAL CARDIOLOGY 05/25/24 documented as of this encounter
--- OUTSIDE RECORDS SUMMARY | 2024-09-21 11:04 | XMS_ITS | Encounter Summary ---
Author Organization [facility] Address [address] [place] [address] Care Team Providers Care Manager Simulation Name Role Phone Chintan Spears MD Unavailable [phone] Angela Miramontes Unavailable [phone] Cabrera Crouch MD Unavailable [phone] Teresa Morin APRN, NP-C Unavailable Ang Hudson MD Unavailable Kaiden Marshall DO Primary Care Provider [phone] Kaiden Marshall DO Primary Care Provider [phone] Matteo Denise MD Unavailable [phone] Jonelle Deluna MD Unavailable [phone] Houston Beaver MD Unavailable [phone] Encounter Details Date Type Department Care Team (Late st Contact Info) Description 03/03/2022 Abstract [facility] [address] [place] [phone] Chintan Spears MD [address] [place] [address] Social History Tobacco Use Types Packs/Day Years Used Date Smoking Tobacco: Never Smokeless Tobacco: Never Alcohol Use Standard Drinks/Week Comments Yes 0 (1 standard drink = 0.6 oz pur e alcohol) rarely Sex and Gender Information Value Date Recorded Sex Assigned at Male 05/25/2024 9:04 AM MUSHROOM SORTER GRADER Legal Sex Male 9:59 PM CDT Gender [...] Appointment [facility] [address] [place] [address] Teresa Morin, FINGERPRINT CLASSIFIER, ABRADING MACHINE TENDER-C [address] [facility] [address] [place] [address] 12/27/2024 9:30 AM CDT Appointment [facility] [address] [place] [address] Ang Hudson MD [address] [facility] [address] [place], [place] [address] 06/02/2025 10:00 AM MUSHROOM SORTER GRADER Office Visit [facility] el [address] [place] [address] Teresa Morin, ALLY, ABRADING MACHINE TENDER-C [address] [facility] [address] [place] [address] documented as of this encounter [...] filedocumented in this encounter Care Teams Manager Simulation Relationship Specialty Start Date End Date Kaiden Marshall DO [address] [place] [address] PCP - General FAMILY PRACTICE 10/15/21 11/11/22 Kaiden Marshall DO [address] [place] [address] PCP - General FAMILY PRACTICE 11/12/22 Chintan Spears MD [address] [place] [address] [place] [facility] Loss Prevention Manager CARDIOVASCULAR DISEASE 01/03/16 12/20/23 Angela Miramontes AGACNP- [address] [address] NURSE PRACTITIONER 07/07/19 07/05/23 Cabrera Crouch MD [address] [address] CARDIOTHORACIC SURGERY 10/26/19 4 Teresa Morin, FINGERPRINT CLASSIFIER, ABRADING MACHINE TENDER-C [address] [facility] [address] [place] [address] NURSE PRACTITIONER 12/01/19 Ang Hudson MD [address] [facility] [address] [place] [address] Vascular/Regional Loss Prevention Manager INTERNAL MEDICINE 01/05/20 [place] [address] [place] [address] Consulting Physician ORTHOPAEDIC SURGERY 07/06/23 Jonelle Deluna MD [address] [place] [address] COLON/RECTAL SURGERY 10/06/23 Houston Beaver MD [address] [place] [address] Consulting Physician INTERVENTIONAL CARDIOLOGY 05/25/24 documented as of this encounter
--- OUTSIDE RECORDS SUMMARY | 2024-09-21 11:04 | XMS_ITS | Encounter Summary ---
Author Organization [facility] Address [address] [place] [address] Care Team Providers Care Marketing Writer Name Role Phone Chintan Spears MD Unavailable [phone] Angela Miramontes Unavailable [phone] Cabrera Crouch MD Unavailable [phone] Teresa Morin APRN, NP-C Unavailable [phone] Ang Hudson MD Unavailable Kaiden Marshall DO Primary Care Provider [phone] Kaiden Marshall DO Primary Care Provider [phone] Matteo Denise MD Unavailable [phone] Jonelle Deluna MD Unavailable [phone] Houston Beaver MD Unavailable [phone] Encounter Details Date Type Department Care Team (Late st Contact Info) Description 05/01/2022 Abstract [facility] [address] [place] [phone] Chintan Spears MD [address] [place] [address] Social History Tobacco Use Types Packs/Day Years Used Date Smoking Tobacco: Never Smokeless Tobacco: Never Alcohol Use Standard Drinks/Week Comments Yes 0 (1 standard drink = 0.6 oz pur e alcohol) rarely Sex and Gender Information Value Date Recorded Sex Assigned at Male 05/25/2024 9:04 AM ACCOUNT ADMINISTRATOR Legal Sex Male 9:59 PM CDT Gender [...] Coronavirus/COVID-19? No / Unsure 04/28/2022 12:10 PM ACCOUNT ADMINISTRATOR documented as of this encounter Functional Status [...] Description 10/05/2024 9:[address] [facility] [address] [place] [address] Teresa Morin, SECONDARY EDUCATION PROFESSOR, REVENUE CYCLE ANALYST-C [address] [facility] [address] [place] [address] 12/27/2024 9:30 AM CDT Appointment [facility] [address] [place] [address] Ang Hudson MD [address] [facility], [address] [place] [address] 06/02/2025 10:00 AM ACCOUNT ADMINISTRATOR Office Visit [facility] [address] [place] [address] Teresa Morin, SECONDARY EDUCATION PROFESSOR, REVENUE CYCLE ANALYST-C [address] [facility] [address] [place] [address] documented as of this encounter [...] HEMOGLOBIN AND HEMATOCRIT Routine 04/29/2022 3:49 PM ACCOUNT ADMINISTRATOR HEMOGLOBIN AND HEMATOCRIT Routine 04/29/2022 12:25 PM ACCOUNT ADMINISTRATOR HEMOGLOBIN AND HEMATOCRIT Routine 04/29/2022 8:15 AM ACCOUNT ADMINISTRATOR documented in this encounter Results * HEMOGLOBIN AND HEMATOCRIT (04/29/2022 3:49 PM ACCOUNT ADMINISTRATOR) HGB 8.6 12.4 - 15.3 HCT 27.7 37.0 - 46.0 04/29/2022 3:49 PM ACCOUNT ADMINISTRATOR us Default History Genericprovider LABORATORY Final Result * HEMOGLOBIN AND HEMATOCRIT (04/29/2022 12:25 PM ACCOUNT ADMINISTRATOR) HGB 7.3 12.4 - 15.3 HCT 25.0 37.0 - 46.0 04/29/2022 12:2 5 PM ACCOUNT ADMINISTRATOR us Default History Genericprovider LABORATORY Final Result * HEMOGLOBIN AND HEMATOCRIT (04/29/2022 8:15 AM ACCOUNT ADMINISTRATOR) HGB 6.2 12.4 - 15.3 HCT 21.2 37.0 - 46.0 04/29/2022 8:15 AM ACCOUNT ADMINISTRATOR us Default History Genericprovider LABORATORY Final Result documented in this encounter Visit Diagnoses Not on filedocumented in this encounter Care Teams Marketing Writer Relationship Specialty Start Date End Date Kaiden Marshall DO [address] [place] [address] PCP - General FAMILY PRACTICE 10/15/21 11/11/22 Kaiden Marshall DO [address] [place] [address] PCP - General FAMILY PRACTICE 11/12/22 Chintan Spears MD [address] [place] [address] [place] [employer] Cashier CARDIOVASCULAR DISEASE 01/03/16 12/20/23 Angela Miramontes AGACNP-BC [address] [address] NURSE PRACTITIONER 07/07/19 07/05/23 Cabrera Crouch MD [address] [address] CARDIOTHORACIC SURGERY 10/26/19 4 Teresa Morin APRN, REVENUE CYCLE ANALYST-C [address] [facility] [address] [place] [address] NURSE PRACTITIONER 12/01/19 Ang Hudson MD [address] [facility] [address] [place] [address] Vascular/Bank Cashier INTERNAL MEDICINE 01/05/20 Matteo Denise MD [address] [place] [address] Consulting Physician ORTHOPAEDIC SURGERY 07/06/23 Jonelle Deluna MD [address] [place] [address] COLON/RECTAL SURGERY 10/06/23 Houston Beaver MD [address] [place] [address] Consulting Physician INTERVENTIONAL CARDIOLOGY 05/25/24 documented as of this encounter
--- OUTSIDE RECORDS SUMMARY | 2024-09-21 11:04 | XMS_ITS | Encounter Summary ---
Author Organization [facility] Address [address] [place] [address] Care Team Providers Care Signals Collection Technician Name Role Phone Rita Lee MD Primary Care Provider Chintan Martinez MD Unavailable [phone] Pérez Herr MD Primary Care Provider [phone] Giuseppe Kulkarni MD Primary Care Provider Angela Miramontes [facility] Unavailable [phone] Cabrera Crouch MD Unavailable [phone] Teresa Morin APRN DOMAIN ARCHITECT-C Unavailable [phone] Ang Hudson MD Unavailable Kaiden Marshall DO Primary Care Provider [phone] Kaiden Marshall DO Primary Care Provider [phone] Matteo Denise MD Unavailable [phone] Jonelle Deluna MD Unavailable [phone] Houston Beaver MD Unavailable [phone] Encounter Details Date Type Department Care Team (Late st Contact Info) Description 07/25/2017 Abstract [facility] [address] [place] [address] , Generic Conversion, Social History Tobacco Use Types Packs/Day Years Used Date Smoking Tobacco: Never Smokeless Tobacco: Never Alcohol Use Standard Drinks/Week Comments Yes 0 (1 standard drink = 0.6 oz pur e alcohol) Occasionally Sex and Gender Information Value Date Recorded Sex Assigned at Male 05/25/2024 9:04 AM AUTOCUTTER Legal Sex Male 9:59 PM CDT Gender Identity Not on file Sexual Orientation Not on file Occupation Industry Job Start Date Job End Date Retired Not on file Not on file Not on file documented as of this encounter Plan of Treatment Upcoming Encounters Date Type Department Care Team (Late st Contact Info) Description 10/05/2024 9:00 AM CDT Appointment [facility] [address] [place] [address] Teresa Morin, ALLY, DOMAIN ARCHITECT-C [address] [phone] 12/27/2024 9:30 AM CDT Appointment [facility] [address] [place] [address] Ang Hudson MD [address] [facility], [address] [place] [address] 06/02/2025 10:00 AM AUTOCUTTER [facility] [address] [place] [address] Teresa Morin APRN, DOMAIN ARCHITECT-C [address] [phone] documented as of this encounter Visit Diagnoses Not on filedocumented in this encounter Additional Health Concerns Infection Onset Date Last Indicated Resolved Time COVID-19 Rule Out 11/19/2019 11/19/2019 11/20/2019 10:43 PM CDT COVID-19 Rule Out 12/24/2019 12/24/2019 12/25/2019 12:13 PM CDT COVID-19 Rule Out 07/31/2020 07/31/2020 08/01/2020 7:36 PM CDT documented as of this encounter Care Teams Signals Collection Technician Relationship Specialty Start Date End Date Rita Lee MD PCP - General SURGERY 01/03/16 11/15/18 Pérez Herr MD [address] [place] [address] PCP - General FAMILY PRACTICE 11/16/18 06/08/19 Giuseppe Kulkarni MD [address] [place] [address] [address] [place] [address] PCP - General FAMILY PRACTICE 06/09/19 10/14/21 Kaiden Marshall DO [address] [place] [address] PCP - General FAMILY PRACTICE 10/15/21 11/11/22 Kaiden Marshall DO [address] [place] [address] PCP - General FAMILY PRACTICE 11/12/22 Chintan Spears MD [address] [place] [address] [place] [employer] Reporting Developer CARDIOVASCULAR DISEASE 01/03/16 12/20/23 Angela Miramontes AGACNP-BC [address] [place] [address] NURSE PRACTITIONER 07/07/19 07/05/23 Cabrera Crouch MD [address] [place] [address] CARDIOTHORACIC SURGERY 10/26/19 4 Teresa Morin, PRECISION DANCER, DOMAIN ARCHITECT-C [facility] E [facility] [address] [place] [address] NURSE PRACTITIONER 12/01/19 Ang Hudson MD [address] [facility] [address] [place] [address] Vascular/Analysis Reporting Developer INTERNAL MEDICINE 01/05/20 Matteo Denise MD [address] [place], [place] [address] Consulting Physician ORTHOPAEDIC SURGERY 07/06/23 Jonelle Deluna MD [address] [place] [address] COLON/RECTAL SURGERY 10/06/23 Houston Beaver MD [address] [place] [address] Consulting Physician INTERVENTIONAL CARDIOLOGY 05/25/24 documented as of this encounter
--- OUTSIDE RECORDS SUMMARY | 2024-09-21 11:04 | XMS_ITS | Encounter Summary ---
Author Organization [facility] Address [address] [place] [address] Care Team Providers Care Disaster Or Damage Control Specialist Name Role Phone Rita Lee MD Primary Care Provider Chintan Martinez MD Unavailable [phone] Pérez Herr MD Primary Care Provider [phone] Giuseppe Kulkarni MD Primary Care Provider Angela Miramontes [facility] Unavailable [phone] Cabrera Crouch MD Unavailable [phone] Teresa Morin APRN, NP-C Unavailable Ang Hudson MD Unavailable Kaiden Marshall DO Primary Care Provider [phone] Kaiden Marshall DO Primary Care Provider [phone] Matteo Denise MD Unavailable [phone] Jonelle Deluna MD Unavailable [phone] Houston Beaver MD Unavailable [phone] Encounter Details Date Type Department Care Team (Late st Contact Info) Description 10/19/2014 Abstract [facility] [address] [place] [address] Chintan Spears MD [address] [place] [address] Social History Tobacco Use Types Packs/Day Years Used Date Smoking Tobacco: Never Alcohol Use Standard Drinks/Week Comments Yes 0 (1 standard drink = 0.6 oz pur e alcohol) Occasionally Sex and Gender Information Value Date Recorded Sex Assigned at Male 05/25/2024 9:04 AM DIRECTOR WATER AND WASTE SERVICES Legal Sex Male 9:59 PM CDT Gender [...] Appointment [facility] [address] [place] [address] Teresa Morin APRN, INFORMATION TECHNOLOGY AUDITOR-C [address] [phone] 12/27/2024 9:[address] [facility] [address] [place] [address] Ang Hudson MD [address] [facility], [address] [place] [address] 06/02/2025 10:00 AM DIRECTOR WATER AND WASTE SERVICES [facility] [address] [place] [address] Teresa Morin APRN, INFORMATION TECHNOLOGY AUDITOR-C [address] [phone] documented as of this encounter Visit Diagnoses Not on filedocumented in this encounter Additional Health Concerns Infection Onset Date Last Indicated Resolved Time COVID-19 Rule Out 11/19/2019 11/19/2019 11/20/2019 10:43 PM CDT COVID-19 Rule Out 12/24/2019 12/24/2019 12/25/2019 12:13 PM CDT COVID-19 Rule Out 07/31/2020 07/31/2020 08/01/2020 7:36 PM CDT documented as of this encounter Care Teams Disaster Or Damage Control Specialist Relationship Specialty Start Date End Date Rita Lee MD PCP - General SURGERY 01/03/16 11/15/18 Pérez Herr MD [address] [place] [address] PCP - General FAMILY PRACTICE 11/16/18 06/08/19 Giuseppe Kulkarni MD [address] [facility] [address] [place] [address] PCP - General FAMILY PRACTICE 06/09/19 10/14/21 Kaiden Marshall DO [address] [place] [address] PCP - General FAMILY PRACTICE 10/15/21 11/11/22 Kaiden Marshall DO [address] [place] [address] PCP - General FAMILY PRACTICE 11/12/22 Chintan Spears MD [facility] [place] [phone] [employer] CARDIOVASCULAR DISEASE 01/03/16 12/20/23 Angela Miramontes AGACNP-BC [address] [place] [id number] NURSE PRACTITIONER 07/07/19 07/05/23 Cabrera Crouch MD [address] [address] CARDIOTHORACIC SURGERY 10/26/19 4 Teresa Morin APRN, INFORMATION TECHNOLOGY AUDITOR-C [address] [facility] [address] [phone] NURSE PRACTITIONER 12/01/19 Ang Hudson MD [address] [facility] [address] [phone] Vascular/Seismic Computer INTERNAL MEDICINE 01/05/20 Matteo Denise MD [address] [place] [address] Consulting Physician ORTHOPAEDIC SURGERY 07/06/23 Jonelle Deluna MD [address] [place] [address] COLON/RECTAL SURGERY 10/06/23 Houston Beaver MD [address] [place] [address] Consulting Physician INTERVENTIONAL CARDIOLOGY 05/25/24 documented as of this encounter
--- OUTSIDE RECORDS SUMMARY | 2024-09-21 11:04 | XMS_ITS ---
Author Organization [facility] Address [address] [place] [address] Care Team Providers Care Loss Prevention Analyst Name Role Phone Timbo Cardoso MD Unavailable Mike Ledezma MD PhD Unavailable [phone] Kaiden Marshall DO Primary Care Provider Edelmira Alexandre NP Unavailable [phone] Jonelle Deluna MD Unavailable [phone] Gilmer Menezes MD Unavailable [phone] Active Problems Problem Noted Date Diagnosed Date DVT of lower extremity, bilateral 03/07/2024 Iron deficiency anemia due to chronic blood loss 01/13/2024 Anemia 01/12/2024 Colon cancer 11/02/2023 Acute postoperative abdominal pain 11/02/2023 Coronary artery disease invo lving belkofski coronary artery of belkofski heart 05/02/2023 Iron deficiency anemia 05/12/2022 AV [...] (08/15/2020): Added automatically from request for surgery [id number] Assessment & Plan (02/12/2022 11:29 AM CDT): [...] (07/12/2020): Added automatically from request for surgery [id number] Rising PSA following treatme nt for malignant neoplasm of prostate 04/20/2020 Overview (04/20/2020): Added automatically from request for surgery [id number] Elevated PSA 04/20/2020 Overview (03/07/2024): Added automatically from request for surgery [id number] Edema of left lower extremity 02/28/2020 History [...]
--- OUTSIDE RECORDS SUMMARY | 2024-09-21 11:04 | XMS_ITS | Encounter Summary ---
Author Organization [facility] Address [address] [place] [address] Care Team Providers Care Solar Sales Specialist Name Role Phone Rita Lee MD Primary Care Provider Chintan Martinez MD Unavailable [phone] Pérez Herr MD Primary Care Provider [phone] Giuseppe Kulkarni MD Primary Care Provider Angela Miramontes [facility] Unavailable [phone] Cabrera Crouch MD Unavailable [phone] Teresa Morin APRN, NP-C Unavailable Ang Hudson MD Unavailable Kaiden Marshall DO Primary Care Provider [phone] Kaiden Marshall DO Primary Care Provider [phone] Matteo Denise MD Unavailable [phone] Jonelle Deluna MD Unavailable [phone] Houston Beaver MD Unavailable [phone] Encounter Details Date Type Department Care Team (Late st Contact Info) Description 05/12/2017 Abstract [facility] [address] [place] [address] Chintan Spears MD [address] [place] [address] Social History Tobacco Use Types Packs/Day Years Used Date Smoking Tobacco: Never Smokeless Tobacco: Never Alcohol Use Standard Drinks/Week Comments Yes 0 (1 standard drink = 0.6 oz pur e alcohol) Occasionally Sex and Gender Information Value Date Recorded Sex Assigned at Male 05/25/2024 9:04 AM GLUELINE WORKER Legal Sex Male 9:59 PM CDT Gender Identity Not on file Sexual Orientation Not on file Occupation Industry Job Start Date Job End Date Retired Not on file Not on file Not on file documented as of this encounter Plan of Treatment Upcoming Encounters Date Type Department Care Team (Late st Contact Info) Description 10/05/2024 9:00 AM CDT Appointment [facility] [address] [place] [address] Teresa Morin APRN, DEVELOPMENT TEAM LEAD-C [address] [phone] 12/27/2024 9:[address] [facility] [address] [place] [address] Ang Hudson MD [address] [facility], [address] [place], [place] [address] 06/02/2025 10:00 AM GLUELINE WORKER [facility] [address] [place] [address] Teresa Morin APRN, DEVELOPMENT TEAM LEAD-C [address] [phone] documented as of this encounter Procedures Procedure [...] documented as of this encounter Care Teams Solar Sales Specialist Relationship Specialty Start Date End Date Rita Lee MD PCP - General SURGERY 01/03/16 11/15/18 Pérez Herr MD [address] [place] [address] PCP - General FAMILY PRACTICE 11/16/18 06/08/19 Giuseppe Kulkarni MD [address] [facility] [address] [place] [address] PCP - General FAMILY PRACTICE 06/09/19 10/14/21 Kaiden Marshall DO [address] [place] [address] PCP - General FAMILY PRACTICE 10/15/21 11/11/22 Kaiden Marshall DO [address] [place] [address] PCP - General FAMILY PRACTICE 11/12/22 Chintan Spears MD [address] [place] [address] [place] [employer] Pit Boss CARDIOVASCULAR DISEASE 01/03/16 12/20/23 Angela Miramontes AGACNP-BC [address] [address] NURSE PRACTITIONER 07/07/19 07/05/23 Cabrera Crouch MD [address] [address] CARDIOTHORACIC SURGERY 10/26/19 4 Teresa Morin APRN, DEVELOPMENT TEAM LEAD-C [address] [facility] [address] [phone] NURSE PRACTITIONER 12/01/19 Ang Hudson MD [address] [phone] Vascular/Gaming Pit Boss INTERNAL MEDICINE 01/05/20 Matteo Denise MD [address] [place] [address] Consulting Physician ORTHOPAEDIC SURGERY 07/06/23 Jonelle Deluna MD [address] [place] [address] COLON/RECTAL SURGERY 10/06/23 Houston Beaver MD [address] [place] [address] Consulting Physician INTERVENTIONAL CARDIOLOGY 05/25/24 documented as of this encounter
--- OUTSIDE RECORDS SUMMARY | 2024-09-21 11:04 | XMS_ITS | Encounter Summary ---
Author Organization [facility] Address [address] [place] [address] Care Team Providers Care Cupola Melting Supervisor Name Role Phone Rita Lee MD Primary Care Provider Chintan Martinez MD Unavailable [phone] Pérez Herr MD Primary Care Provider [phone] Giuseppe Kulkarni MD Primary Care Provider Angela Miramontes [facility] Unavailable [phone] Cabrera Crouch MD Unavailable [phone] Teresa Morin APRN, NP-C Unavailable [phone] Ang Hudson MD Unavailable Kaiden Marshall DO Primary Care Provider [phone] Kaiden Marshall DO Primary Care Provider + [phone] Matteo Denise MD Unavailable [phone] Jonelle Deluna MD Unavailable [phone] Houston Beaver MD Unavailable [phone] Encounter Details Date Type Department Care Team (Late st Contact Info) Description 04/29/2017 Abstract [facility] [address] [place] [address] Chintan Spears MD [address] [place] [address] Social History Tobacco Use Types Packs/Day Years Used Date Smoking Tobacco: Never Smokeless Tobacco: Never Alcohol Use Standard Drinks/Week Comments Yes 0 (1 standard drink = 0.6 oz pur e alcohol) Occasionally Sex and Gender Information Value Date Recorded Sex Assigned at Male 05/25/2024 9:04 AM SANITATION ASSOCIATE Legal Sex Male 9:59 PM CDT Gender [...] App[facility]ment [facility] [address] [place] [address] Teresa Morin APRN, SLICER MACHINE OPERATOR-C [address] [phone] 12/27/2024 9:[address] [facility] [address] [place] [address] Ang Hudson MD [address] [facility], [address] [place] [address] 06/02/2025 10:00 AM SANITATION ASSOCIATE [facility] [address] [place] [address] Teresa Morin APRN, SLICER MACHINE OPERATOR-C [address] [phone] documented as of this encounter Visit Diagnoses Not on filedocumented in this encounter Additional Health Concerns Infection Onset Date Last Indicated Resolved Time COVID-19 Rule Out 11/19/2019 11/19/2019 11/20/2019 10:43 PM CDT COVID-19 Rule Out 12/24/2019 12/24/2019 12/25/2019 12:13 PM CDT COVID-19 Rule Out 07/31/2020 07/31/2020 08/01/2020 7:36 PM CDT documented as of this encounter Care Teams Cupola Melting Supervisor Relationship Specialty Start Date End Date Rita Lee MD PCP - General SURGERY 01/03/16 11/15/18 Pérez Herr MD [address] [place] [address] PCP - General FAMILY PRACTICE 11/16/18 06/08/19 Giuseppe Kulkarni MD [address] [facility] [address] [place] [address] PCP - General FAMILY PRACTICE 06/09/19 10/14/21 Kaiden Marshall DO [address] [place] [address] PCP - General FAMILY PRACTICE 10/15/21 11/11/22 Kaiden Marshall DO [facility] [place] [address] PCP - General FAMILY PRACTICE 11/12/22 Chintan Spears MD [address] [place] [phone] [employer] Manager Review CARDIOVASCULAR DISEASE 01/03/16 12/20/23 Angela Miramontes AGACNP-BC [address] [place] [id number] NURSE PRACTITIONER 07/07/19 07/05/23 Cabrera Crouch MD [address] [place] [address] CARDIOTHORACIC SURGERY 10/26/19 4 Teresa Morin APRN, SLICER MACHINE OPERATOR-C [address] [facility] [address] [place] [phone] NURSE PRACTITIONER 12/01/19 Ang Hudson MD [address] [facility] [address] [place] [address] Vascular/Manager Review INTERNAL MEDICINE 01/05/20 [place] [address] [place] [address] Consulting Physician ORTHOPAEDIC SURGERY 07/06/23 Jonelle Deluna MD [address] [place] [address] COLON/RECTAL SURGERY 10/06/23 Houston Beaver MD [address] [place] [address] Consulting Physician INTERVENTIONAL CARDIOLOGY 05/25/24 documented as of this encounter
--- OUTSIDE RECORDS SUMMARY | 2024-09-21 11:04 | XMS_ITS | Encounter Summary ---
Author Organization [facility] Address [address] [place] [address] Care Team Providers Care Kitchen Supervisor Name Role Phone Chintan Spears MD Unavailable [phone] Pérez Herr MD Primary Care Provider [phone] Giuseppe Kulkarni MD Primary Care Provider Angela Miramontes [facility] Unavailable [phone] Cabrera Crouch MD Unavailable [phone] Teresa Morin APRN, DRYCLEANER-C Unavailable Ang Hudson MD Unavailable Kaiden Marshall DO Primary Care Provider [phone] Kaiden Marshall DO Primary Care Provider [phone] Matteo Denise MD Unavailable [phone] Jonelle Deluna MD Unavailable [phone] [place] Beaver MD Unavailable [phone] Encounter Details Date Type Department Care Team (Late st Contact Info) Description 02/15/2019 Agile Message Enc [employer] DEPARTMENT [facility] [place] [address] Gene, [facility] Provider Visit Follow Up Social History Tobacco Use Types Packs/Day Years Used Date Smoking Tobacco: Never Smokeless Tobacco: Never Alcohol Use Standard Drinks/Week Comments Yes 0 (1 standard drink = 0.6 oz pur e alcohol) Occasionally Sex and Gender Information Value Date Recorded Sex Assigned at Male 05/25/2024 9:04 AM HAZARDOUS SUBSTANCES ENGINEER Legal Sex Male 9:59 PM CDT Gender Identity Not on file Sexual Orientation Not on file Occupation Industry Job Start Date Job End Date Retired Not on file Not on file Not on file documented as of this encounter Plan of Treatment Upcoming Encounters Date Type Department Care Team (Late st Contact Info) Description 10/05/2024 9:00 AM CDT Appointment [facility] [address] [place] [address] Teresa Morin APRN, DRYCLEANER-C [address] [phone] 12/27/2024 9:30 AM CDT Appointment [facility] [address] [place] [address] Ang Hudson MD [address] [facility], [address] [place] [address] 06/02/2025 10:00 AM HAZARDOUS SUBSTANCES ENGINEER [facility] [address] [place] [phone] Teresa Morin APRN, DRYCLEANER-C [address] [phone] documented as of this encounter Visit Diagnoses Not on filedocumented in this encounter Additional Health Concerns Infection Onset Date Last Indicated Resolved Time COVID-19 Rule Out 11/19/2019 11/19/2019 11/20/2019 10:43 PM CDT COVID-19 Rule Out 12/24/2019 12/24/2019 12/25/2019 12:13 PM CDT COVID-19 Rule Out 07/31/2020 07/31/2020 08/01/2020 7:36 PM CDT documented as of this encounter Care Teams Kitchen Supervisor Relationship Specialty Start Date End Date Pérez Herr MD [address] [place] [address] PCP - General FAMILY PRACTICE 11/16/18 06/08/19 Giuseppe Kulkarni MD [address] [facility] [address] [place] [address] PCP - General FAMILY PRACTICE 06/09/19 10/14/21 Kaiden Marshall DO [address] [place] [address] PCP - General FAMILY PRACTICE 10/15/21 11/11/22 Kaiden Marshall DO [address] [place] [address] PCP - General FAMILY PRACTICE 11/12/22 Chintan Spears MD [address] [place] [phone] [place] Dump Operator CARDIOVASCULAR DISEASE 01/03/16 12/20/23 Angela Miramontes AGACNP-BC [address] [address] NURSE PRACTITIONER 07/07/19 07/05/23 Cabrera Crouch MD [address] [address] CARDIOTHORACIC SURGERY 10/26/19 4 Teresa Morin APRN, DRYCLEANER-C [address] [facility] [address] [place] [phone] NURSE PRACTITIONER 12/01/19 Ang Hudson MD [address] [facility] [address] [place] [phone] Vascular/Dump Operator INTERNAL MEDICINE 01/05/20 Matteo Denise MD [address] [place] [address] Consulting Physician ORTHOPAEDIC SURGERY 07/06/23 Jonelle Deluna MD [address] [place] [address] COLON/RECTAL SURGERY 10/06/23 [place] Beaver MD [address] [place] [address] Consulting Physician INTERVENTIONAL CARDIOLOGY 05/25/24 documented as of this encounter
--- OUTSIDE RECORDS SUMMARY | 2024-09-21 11:04 | XMS_ITS | Encounter Summary ---
Author Organization [facility] Healthcare Address [facility] [place] [address] Care Team Providers Care Sky Diver Name Role Phone Timbo Cardoso MD Unavailable Mike Ledezma MD PhD Unavailable [phone] Kaiden Marshall DO Primary Care Provider Edelmira Alexandre NP Unavailable [phone] Jonelle Deluna MD Unavailable [phone] Gilmer Menezes MD Unavailable [phone] Reason for Referral * MRI/CAT/PET Scan (Routine) - Closed Specialty Diagnoses / Procedures Referred By Sammy hernandez Referred To Contact Radiology Diagnoses Malignant neoplasm of colon, unspecified part of colon (HCC) Procedures CT Chest Abdomen Pelvis W Contrast Gilmer Menezes MD [facility] [address] [place] [address] Phone: tel: fax: [address] [phone] Referral ID Status Reason Start Date Expiration Date Visits Re quested Visits Authorized [id number] Closed 07/05/2024 08/04/2025 1 1 Reason for Visit * MRI/CAT/PET Scan (Routine) - Closed Specialty Diagnoses / Procedures Referred By [facility] Referred To Contact Radiology Diagnoses Malignant neoplasm of colon, unspecified part of colon (HCC) Procedures CT Chest Abdomen Pelvis W Contrast Gilmer Menezes MD [address] [facility] [address] [place] [address] Phone: tel: fax: [facility] [address] [place] [phone] Referral ID Status Reason Start Date Expiration Date Visits Re quested Visits Authorized [id number] Closed 07/05/2024 08/04/2025 1 1 Encounter Details Date Type Department Care Team (Latest Contact Info) Description 09/20/2024 10:08 AM CDT - 09/20/2024 11:59 PM CDT Hospital Encounter [facility] Medical Office Building [address] [address] Malignant neoplasm of colon, unspecified part of colon (HCC) Discharge Disposition: Discharge to home or self care Social History Tobacco Use Types Packs/Day Years [...] on file 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 Gender Identity Male 01/29/2021 1:19 PM CDT Sexual Orientation Not on file documented as of this encounter Medications at Time of Discharge acidophilus-pectin, citrus 100 million cell-10 mg capsule Take 1 tablet by mouth every morning amLODIPine (NORVASC) 2.5 mg tablet Take 1 tablet (2.5 mg total) by mouth 2 (two) times a day 03/27/2020 aspirin 81 mg chewable tablet Take 1 tablet (81 mg total) by mouth daily atorvastatin (LIPITOR) 80 mg tablet Take 1 tablet (80 mg total) by mouth nightly 05/03/2020 chlorthalidone 25 mg tablet Take 1 tablet (25 mg total) by mouth every morning 04/25/2020 dapagliflozin propanediol (FARXIGA) 10 mg tablet 1 tablet (10 mg total) diphenhydrAMINE-anne marie taminophen (TYLENOL PM) 25-500 mg tablet Take 1 tablet by mouth nightly Eliquis 5 mg tabletIndications:V TE Prophylaxis,atrial fibrillation Take 1 tablet (5 mg total) by mouth 2 (two) times a day 12/10/2020 famotidine (PEPCID) 40 mg tablet Take 1 tablet (40 mg total) by mouth every evening fluticasone propionate (FLONASE) 50 mcg/actuation nasal spray ADMINISTER 1 SPRAY INTO EACH NOSTRIL DAILY NEEDED FOR RHINITIS OR ALLERGIES. 16 mL 1 08/15/2024 gentamicin (GARAMYCIN) 0.3 % ophthalmic solution Administer 1 drop into both eyes daily 5 mL 3 03/22/2024 irbesartan (AVAPRO) 300 mg tablet Take 0.5 tablets (150 mg total) by mouth 2 (two) times a day 04/25/2020 isosorbide mononitrate ER (IMDUR) 60 mg 24 hr tablet Take 1 tablet (60 mg total) by mouth daily 12/17/2023 loratadine 10 mg capsule Take 1 tablet by mouth every morning magnesium gluconate (MAGONATE) 27.5 mg magne- sium (500 mg) tablet Take 1 tablet (500 mg total) by mouth every morning metFORMIN XR (GLUCOPHAGE XR) 500 mg 24 hr tablet Take 1 tablet (500 mg total) by mouth every evening 10/06/2023 nitroglycerin (NITROSTAT) 0.[address] 1 tablet (0.4 mg total) under the tongue every 5 (five) minutes as needed 11/10/2019 olopatadine (PATANOL) 0.1 % ophthalmic solutionIndications :Allergic Conjunctivitis Administer 1 drop into both eyes 2 (two) times a day 5 mL 2 01/27/[address] (PROTONIX) 40 mg EC tablet Take 1 tablet (40 mg total) by mouth every morning prochlorperazine (Compazine) 10 mg tabletIndications:M alignant neoplasm of colon, unspecified part of colon (HCC) Take 1 tablet (10 mg total) by mouth every 6 (six) hours as needed for nausea or vomiting 30 tablet 3 04/19/2024 rOPINIRole (REQUIP) 1 mg tablet Take 1 tablet (1 mg total) by mouth 2 (two) times a day documented as of this encounter Discharge Disposition Disposition Code Departure Means Destination Discharge to home or self care documented in this encounter Plan of Treatment Pending Results Name Type Priority Associated Diagnoses Date /Time CT Chest Abdomen Pelvis W Contrast Imaging Schedule Routine, Read Routine (OP Routine) Malignant neoplasm of colon, unspecified part of colon (HCC) 09/20/2024 10:35 AM CDT Scheduled Orders Name Type Priority Associated Diagnoses Orde r Schedule CT Chest Abdomen Pelvis W Contrast Imaging Schedule Routine, Read Routine (OP Routine) Malignant neoplasm of colon, unspecified part of colon (HCC) Once for 1 Occurrences starting 09/20/2024 until 09/20/2024 documented as of this encounter Procedures Procedure Name Priority Date/Time Associated Diagnosis Comments POCT CREATININE FOR CONTRAST EVALUATION Routine 09/20/2024 10:27 AM CDT documented in this encounter Results * POCT creatinine for contrast evaluation (09/20/2024 10:27 AM CDT) Creatinine POC 1.30 0.80 - 1.30 mg/dL Comment:Testing performed by : [facility], [address] [place] [address]., [id number] Blood 09/20/2024 10:2 7 AM CDT 09/20/2024 10:27 AM CDT us Jonelle Deluna MD POINT OF CARE TEST ORDERAB LES Final Result MEGAN [address] [facility] Department [place] [address] documented in this encounter Visit Diagnoses Diagnosis Malignant neoplasm of colon, unspecified part of colon (HCC) documented in this encounter Administered Medications Inactive Administered Medications - up to 3 most recent administrations Medication Order MAR Action Action Date Dose Rate Site heparin 100 unit/mL injection 500 Units 500 Units (5 mL), intra-catheter, Once, On Thu09/20/24 at 1100, For 1 dose, For port decannulation., Indications: Maintain Patency of Indwelling Vascular CatheterIndications:Maintain Patency of Indwelling Vascular Catheter Given 09/20/2024 10:35 AM CDT 500 Units Port ioversoL (OPTIRAY 350) syringe 100 mL 100 mL, intravenous, Once in imaging, contrast, Starting on Thu09/20/24 at 1026, For 1 dose Contrast Given 09/20/2024 10:35 AM CDT 100 mL Port sodium chloride 0.9% flush 10 mL 10 mL, intra-catheter, Once, On Thu09/20/24 at 1100, For 1 dose, Prior to heparin to decannulate port. Given 09/20/2024 10:36 AM CDT 10 mL Port sodium chloride 0.9% flush 10-20 mL 10-20 mL, intra-catheter, Every 12 hours scheduled, First dose on Thu09/20/24 at 1100, To saline lock: Flush with 10mL per lumen. Flush with 20mL after obtaining a blood sample in lumen utilized. Saline flush syringes are single lumen use, do not use same syringe on multiple lumens. Use postive pressure disconnect: pulsitile flush--> clamp--> then disconnect syringe. Given 09/20/2024 10:35 AM CDT 10 mL Port sodium chloride 0.9% flush 10-20 mL 10-20 mL, intra-catheter, As needed, line care, Starting on Thu09/20/24 at 1027, To saline lock: Flush with 10mL per lumen. Flush with 20mL after obtaining a blood sample in lumen utilized. Saline flush syringes are single lumen use, do not use same syringe on multiple lumens. Use postive pressure disconnect: pulsitile flush--> clamp--> then disconnect syringe. Given 09/20/2024 10:35 AM CDT 10 mL Port documented in this encounter Care Teams Sky Diver Relationship Specialty Start Date End Date Kaiden Marshall DO [address] [place] [address] PCP - General Family Medicine 10/10/21 Timbo Cardoso MD Consulting Physician Neurology 10/18/20 Mike Ledezma MD PhD [address] [place] [address] Radiation Oncologist Radiation Oncology 02/21/21 Edelmira Alexandre NP [address] [place] [address] Registered Nurse Family Medicine 09/08/23 Jonelle Deluna MD [address] [phone] [place] [address] Surgeon Colon and Rectal Surgery 09/29/23 [place] [address] [place] [address] [address] [place] [address] Medical Oncologist/Assistant Purchasing Manager Medical Oncology 11/24/23 documented as of this encounter
--- OUTSIDE RECORDS SUMMARY | 2024-09-21 11:04 | XMS_ITS | Encounter Summary ---
Author Organization [facility] Address [address] [place] [address] Care Team Providers Care Real Estate Financial Analyst Name Role Phone Chintan Spears MD Unavailable [phone] Angela Miramontes-ЕЛЕНА Unavailable [phone] Cabrera Crouch MD Unavailable [phone] Teresa Morin APRN, NP-C Unavailable [phone] Ang Hudson MD Unavailable Kaiden Marshall DO Primary Care Provider [phone] Kaiden Marshall DO Primary Care Provider [phone] Matteo Denise MD Unavailable [phone] Jonelle Deluna MD Unavailable [phone] Houston Beaver MD Unavailable [phone] Encounter Details Date Type Department Care Team (Late st Contact Info) Description 02/20/2022 Hospital Orders Only [employer] Pre/Post [address] [place], [place] [id number] Chintan Spears MD [address] [place] [address] Social History Tobacco Use Types Packs/Day Years Used Date Smoking Tobacco: Never Smokeless Tobacco: Never Alcohol Use Standard Drinks/Week Comments Yes 0 (1 standard drink = 0.6 oz pur e alcohol) rarely Sex and Gender Information Value Date Recorded Sex Assigned at Male 05/25/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 [address] [place] [address] Teresa Morin, FOOD SERVICE ASSOCIATE, FRONT OFFICE ATTENDANT-C [address] [facility] [address] [place] [address] 12/27/2024 9:30 AM CDT Appointment [facility] [address] [place] [address] Ang Hudson MD [address] [facility], [address] [place] [address] 06/02/2025 10:00 AM AIR DEFENSE SPECIALIST Office Visit [facility] [address] [place] [address] Teresa Morin APRN, FRONT OFFICE ATTENDANT-C [address] [facility] [address] [place] [address] documented as of this encounter [...] on filedocumented in this encounter Care Teams Real Estate Financial Analyst Relationship Specialty Start Date End Date Kaiden Marshall DO [address] [place] [address] PCP - General FAMILY PRACTICE 10/15/21 11/11/22 Kaiden Marshall DO [address] [place] [address] PCP - General FAMILY PRACTICE 11/12/22 Chintan Spears MD [address] [place] [phone] [employer] Hoisting Laborer CARDIOVASCULAR DISEASE 01/03/16 12/20/23 Angela Miramontes AGACNP- [address] [address] NURSE PRACTITIONER 07/07/19 07/05/23 Cabrera Crouch MD [address] [address] CARDIOTHORACIC SURGERY 10/26/19 4 Teresa Morin, FOOD SERVICE ASSOCIATE, FRONT OFFICE ATTENDANT-C [address] [facility] [address] [place] [address] NURSE PRACTITIONER 12/01/19 Ang Hudson MD [address] [facility] [address] [place] [phone] Vascular/Hoisting Laborer INTERNAL MEDICINE 01/05/20 [place] [address] [place] [address] Consulting Physician ORTHOPAEDIC SURGERY 07/06/23 Jonelle Deluna MD [address] [place] [address] COLON/RECTAL SURGERY 10/06/23 Houston Beaver MD [address] [place] [address] Consulting Physician INTERVENTIONAL CARDIOLOGY 05/25/24 documented as of this encounter
--- OUTSIDE RECORDS SUMMARY | 2024-09-21 11:04 | XMS_ITS | Encounter Summary ---
Author Organization [facility] Address [address] [place] [address] Care Team Providers Care Wire Preparation Worker Name Role Phone Teresa Morin APRN, NP-C Unavailable Ang Hudson MD Unavailable Kaiden Marshall DO Primary Care Provider [phone] Matteo Denise MD Unavailable [phone] Jonelle Deluna MD Unavailable Houston Beaver MD Unavailable [phone] Reason for Visit * Reason Onset Date Comments Refill Request 09/20/2024 Encounter Details Date Type Department Care Team ([facility] st Contact Info) Description 09/20/2024 Telephone [facility] [address] [place] [address] Teresa Morin APRN, PLASTIC SHEETS SUPERVISOR-C [address] [facility] [address] [place] [address] Refill Request Social History Tobacco Use Types Packs/Day Years Used Date Smoking Tobacco: Never Smokeless Tobacco: Never Alcohol Use Standard Drinks/Week Comments Yes 0 (1 standard drink = 0.6 oz pur e alcohol) rarely Sex and Gender Information Value Date Recorded Sex Assigned at Male 05/25/2024 9:04 AM SEWER AND CUTTER FINGER BUFF MATERIAL Legal Sex Male 9:59 PM CDT Gender [...] documented in this encounter Progress Notes * Hebert Suresh LPN - 09/20/2024 11:31 AM CDT Refill sent. * Hebert Suresh LPN - 09/20/2024 11:31 AM CDTAddended by: HEBERT SURESH on: 09/20/2024 11:31 AM Modules accepted: Orders * Addie Beth - 09/20/2024 8:55 AM CDTSummary: Refill request [facility] [place] [facility] [place] [facility] supply: QTY 90 Medication: Isosorbide Mononit ER 60 mg, take 1 tablet daily Who is calling: Pharmacy faxed Appt. 06/02/2025 Miesha Moore documented in this encounter Plan of Treatment Upcoming Encounters Date Type Department Care Team (Late st Contact Info) Description 10/05/2024 9:[address] [facility] [address] [place] [address] Teresa Morin APRN, PLASTIC SHEETS SUPERVISOR-C [address] [address] 12/27/2024 9:[address] [facility] [address] [place] [address] Ang Hudson MD [address] [facility], [address] [place], [place] [id number] 06/02/2025 10:00 AM SEWER AND CUTTER FINGER BUFF MATERIAL [facility] [address] [place] [address] Teresa Morin APRN, PLASTIC SHEETS SUPERVISOR-C [address] [address] documented as of this encounter [...] on filedocumented in this encounter Care Teams Wire Preparation Worker Relationship Specialty Start Date End Date Kaiden Marshall DO [address] [place] [address] PCP - General FAMILY PRACTICE 11/12/22 Teresa Morin APRN, PLASTIC SHEETS SUPERVISOR-C [address] [facility] [address] [place] [address] NURSE PRACTITIONER 12/01/19 Ang Hudson MD [address] [place] [facility] [address] [address] Vascular/Truck Driver Salesperson INTERNAL MEDICINE 01/05/20 Matteo Denise MD [address] [place] [address] Consulting Physician ORTHOPAEDIC SURGERY 07/06/23 Jonelle Deluna MD [address] [place] [address] COLON/RECTAL SURGERY 10/06/23 Houston Beaver MD [address] [place] [address] Consulting Physician INTERVENTIONAL CARDIOLOGY 05/25/24 documented as of this encounter
== END 2024-09-21 10:48 | disposition home or self-care (01) ==
LOC: CHSIMG 10:48
PROVIDERS: PCP Family Medicine; Visit Provider Family Medicine
DX: I10 Essential (primary) hypertension (principal); E11.59 Type 2 diabetes mellitus with other circulatory complications; M25.552 Pain in left hip
CPT/HCPCS: 73502

== ENCOUNTER 2024-10-17 14:11 | Outpatient (CLI) | payer MEDICARE, SELFPAY ==
--- NOTE | ~2024-10-17 | US_ITS ---
ULTRASOUND ANKLE BRACHIAL INDEX Ordering provider: Kaiden Marshall DO History: . TYPE 2, HYPERTENSION . Comparison: None. FINDINGS: Right brachial systolic blood pressure: 90 mmHg Left brachial systolic blood pressure: 128 mmHg Right ankle systolic blood pressure: 111 mmHg Left ankle systolic blood pressure: 114 mmHg Right ankle/arm index (REBECCA): 0.87 Left ankle/arm index (REBECCA): 0.89 Note regarding REBECCA: --Normal= 1.0 or slightly greater. --Claudication (moderate stenosis or occlusive state)= 0.6 to 0.9. --Rest pain (severe occlusive states)= 0.5 or less. 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 IMPRESSION: moderate stenosis or occlusive state seen bilaterally. Clinical correlation and if warranted further evaluation advised. Reviewed, dictated and finalized at location A. IMPRESSION: moderate stenosis or occlusive state seen bilaterally. Clinical correlation an d if warranted further evaluation advised.
--- OUTSIDE RECORDS SUMMARY | 2024-10-17 15:26 | XMS_ITS | Clinical Summary ---
Author Organization [facility] Address [address] [place] [address] Care Team Providers Care Pipe Bender Name Role Phone Timbo Cardoso MD Unavailable Mike Ledezma MD PhD Unavailable [phone] Kaiden Marshall DO Primary Care Provider Edelmira Alexandre NP Unavailable [phone] Jonelle Deluna MD Unavailable [phone] Gilmer Menezes MD Unavailable [phone] Allergies No known active allergies Medications amLODIPine [...] day 5 mL 2 01/27/20 24 Active prochlorperazine (Compazine) 10 mg tabletIndications: Malignant neoplasm of colon, unspecified part of colon (HCC) Take 1 tablet (10 mg total) by mouth every 6 (six) hours as needed for nausea or vomiting 30 tablet 3 04/19/20 24 Active fluticasone propionate (FLONASE) 50 mcg/actuation nasal spray ADMINISTER 1 SPRAY INTO EACH NOSTRIL DAILY NEEDED FOR RHINITIS OR ALLERGIES. 16 mL 1 08/16/19 25 Active gentamicin (GARAMYCIN) 0.3 % ophthalmic solution Administer 1 drop into both eyes daily 5 mL 3 03/22/20 24 025 Discontin ued(Thera py completed ) Active Problems Problem Noted Date Diagnosed Date DVT of lower extremity, bilateral 03/07/2024 Iron deficiency anemia due to chronic blood loss 01/13/2024 Anemia 01/12/2024 Colon cancer 11/02/2023 Acute postoperative abdominal pain 11/02/2023 Coronary artery disease invo lving resighini coronary artery of resighini heart 05/02/2023 Iron deficiency anemia 05/12/2022 AV [...] (08/15/2020): Added automatically from request for surgery [id number] Assessment & Plan (02/12/2022 11:29 AM CDT): [...] (07/12/2020): Added automatically from request for surgery [id number] Rising PSA following treatme nt for malignant neoplasm of prostate 04/20/2020 Overview (04/20/2020): Added automatically from request for surgery [id number] Elevated PSA 04/20/2020 Overview (03/07/2024): Added automatically from request for surgery [id number] Edema of left lower extremity 02/28/2020 History [...] Encounters Date Type Department Care Team Description 09/27/2024 11:00 AM CDT Office Visit [facility] [address] [place] [phone] Gilmer Menezes MD Malignant neoplasm of colon, unspecified part of colon (HCC) (Primary Dx) 09/27/2024 10:30 AM CDT Clinical Support [facility] at [address] [address] Malignant neoplasm of colon, unspecified part of colon (HCC) 09/26/2024 Orders Only [facility] [address] [place] [phone] Humberto Davis MD 09/20/2024 10:08 AM CDT - 09/20/2024 11:59 PM CDT Hospital Encounter [facility] Medical Office Building [address] [place] [address] Malignant neoplasm of colon, unspecified part of colon (HCC) Discharge Disposition: Discharge to home or self care 08/18/2024 11:00 AM CDT Office Visit [facility] Radiation Oncology [address] [place] [phone] Bryanna Hall NP Prostate cancer (HCC) 08/09/2024 Telephone [facility] Oncology [facility] [address] [place] [address] Gilmer Menezes MD 08/01/2024 Telephone [facility] Radiation Oncology [address] [place] [address] Henrry Darby RN 07/27/2024 Orders Only [facility] Radiation Oncology [address] [place] [phone] Bryanna Hall NP from Last 3 Months Surgical History Surgery Date Site/Laterality Comments CAROTID ENARTERECTOMYY 06/11/2019 - 07/09/2019 right (pt reports left is approx 70% blocked-monitoring) CARDIAC STENT PLACEMENT 11/09/2019 - 12/09/2019 Dr. Chintan Spears with [employer] in [place], [place] BACK SURGERY not a fusion/ for stenosis of spine CORONARY ARTERY BYPASS GRAFT 05/11/1992 - 05/10/1993 COLONOSCOPY W/ BIOPSIES 08/31/2023 PROSTATECTOMY 05/11/2020 - 05/10/2021 LUMBAR SPINE SURGERY 07/13/2023 US GUIDED PARACENTESIS 08/02/2019 N/A PORT PLACEMENT CHEST >5 YEARS 12/28/2023 N/A SUPERFICIAL BONE BIOPSY 03/14/2024 N/A CARDIAC SURGERY COLON SURGERY CATARACT EXTRACTION Medical History Medical History Date Comments Sleep [...] on file Legal Sex Male 3:59 PM 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 Gender Identity Male 01/29/2021 1:19 PM CDT Sexual Orientation Not on file Obstetrics History Last Filed Vital Signs Vital Sign Reading Time Taken Comments Blood Pressure 145/67 09/27/2024 11:51 AM CDT Pulse 71 09/27/2024 11:51 AM CDT Temperature 36.9 C (98.5 F) 09/27/2024 11:51 AM CDT Respiratory Rate 18 09/27/2024 11:51 AM CDT Oxygen Saturation 100% 09/27/2024 11:51 AM CDT Inhaled Oxygen Concentration - - Weight 97.5 kg (215 lb) 09/27/2024 11:51 AM CDT Height 174 cm (5' 8.5) 04/19/2024 10:48 AM [employer]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 Body Mass Index 32.22 04/19/2024 10:48 AM [employer]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 Plan of Treatment Upcoming Encounters Date Type Department Care Team (Late st Contact Info) Description 11/30/2024 1:00 PM CDT Hospital Encounter [facility] Endoscopy at [facility] [address] [place] [address] Jonelle Deluna MD [address] [phone] [place] [address] 11/30/2024 1:00 PM CDT - 11/30/2024 1:45 PM CDT Surgery [facility] Endoscopy at [facility] [address] [place] [address] Jonelle Deluna MD [address] [phone] [place] [address] COLONOSCOPY Scheduled Procedures Name Priority Associated Diagnoses Date/Ti me COLONOSCOPY Malignant neoplasm of colon, unspecified part of colon (HCC) 11/30/2024 1:00 PM CDT Health Maintenance Due Date Last Done Comments Albumin Creatinine Ratio, Urine 1950 Depression Screening 1950 Hemoglobin A1C 1950 [...] 02/12/2021, 02/11/2021, 02/28/2020 Lipid Panel 03/09/2025 03/09/2024, 0808/2022, 06/14/2019 Fall Risk Assessment 03/14/2025 03/14/2024, 07/24/2022, 03/26/2021 eGFR 09/27/2025 09/27/2024, 02/2 09/2024, 06/14/2024, Additional history exists Colon Cancer Screening-Colonoscopy 09/16/20342024 Medical Devices Implanted Type Area Card Game Operator Device Identifier Shelf Expiration Date Model / Serial / Lot Stents Implanted:Qty: 11 Bilateral: Heart Description:2005,2008,2009,2 014,2015,2019,2020 Stents and bypass 1993 [employer] Xcela Power Port 8fr [id number] - [id number] Implanted:Qty: 1 on 12/28/2023 at [facility] [employer] 06/20/2028 [id number] / / [id number] Explanted Type Area Card Game Operator Device Identifier Shelf Expiration Date Model / Serial / Lot [employer] Eloy 180-223 Contour 6fr 26cm Large Inner Lumen Low Profile Bladder Melvin Taper Latex Free - [id number] Implanted:Qty: 1 on 09/13/2020 by Esdras Conway MD at [facility] Explanted:Qty: 1 on 10/16/2020 at [facility] [employer] Eloy 05/21/2023 180-223 / / [id number] Procedures Procedure Name Priority Date/Time Associated Diagnosis Comments EGFR Routine 09/27/2024 10:41 AM CDT Malignant neoplasm of colon, unspecified part of colon (HCC) DIFFERENTIAL AUTO Routine 09/27/2024 10: 41 AM CDT Malignant neoplasm of colon, unspecified part of colon (HCC) CBC WITH AUTO DIFFERENTIAL Routine 09/27/2024 10:41 AM CDT Malignant neoplasm of colon, unspecified part of colon (HCC) CEA Routine 09/27/2024 10:41 AM CDT Malignant neoplasm of colon, unspecified part of colon (HCC) COMPREHENSIVE METABOLIC PANEL Routine 09/27/2024 10:41 AM CDT Malignant neoplasm of colon, unspecified part of colon (HCC) IRON PROFILE W/ IBC Routine 09/27/2024 1 0:41 AM CDT Malignant neoplasm of colon, unspecified part of colon (HCC) FERRITIN Routine 09/27/2024 10:41 AM CDT Malignant neoplasm of colon, unspecified part of colon (HCC) CT CHEST ABDOMEN PELVIS W CONTRAST Schedule Routine, Read Routine (OP Routine) 09/20/2024 10:35 AM CDT Malignant neoplasm of colon, unspecified part of colon (HCC) POCT CREATININE FOR CONTRAST EVALUATION Routine 09/20/2024 10:27 AM CDT COLONOSCOPY Routine 09/16/2024 2:30 PM CDT PSA DIAGNOSTIC Routine 07/27/2024 2:53 PM CDT from Last 3 Months Results * eGFR (09/27/2024 10:41 AM CDT) eGFR 63 >=60 mL/min/1. 73 m2 Comment: [...] was last reviewed 2021. Testing performed by: [address] [address] Blood 09/27/2024 10:4 1 AM CDT 09/27/2024 10:42 AM CDT Gilmer Menezes MD LAB BLOOD ORDERABLES Final Result MEGAN [address] [facility] [place] [address] * (ABNORMAL) Differential, auto (09/27/2024 10:41 AM CDT) Neutrophil abs 7.68(H) 1.50 - 6.50 K/cumm Comment:Testing performed by : [address] [address] Imm gran abs 0.06 0.00 - 0.10 K/cumm CERNER Comment:Testing performed by : [address] [address] Lymphocyte abs 0.93 0.80 - 3.30 K/cumm MEGAN Comment:Testing performed by : [address] [address] Monocyte abs 0.73 0.20 - 0.80 K/cumm [facility] Comment:Testing performed by : [address] [address] Eosinophil abs 0.04 0.00 - 0.50 K/cumm [facility] Comment:Testing performed by : [address] [address] Basophil abs 0.01 0.00 - 0.10 K/cumm [facility] Comment:Testing performed by : [address] [address] Neutrophil pct 81.4 % [facility] Comment: Interpretive Data Percent cell count reference ranges are not reported, since discordance with absolute values may lead to misinterpretation of CBC data. Current Interpretive Data was last revised on 2017. Testing performed by: [address] [address] Imm gran pct 0.6 % [facility] Comment: Interpretive Data Percent cell count reference ranges are not reported, since discordance with absolute values may lead to misinterpretation of CBC data. Current Interpretive Data was last revised on 2017. Testing performed by: [address] [address] Lymphocyte pct 9.8 % [facility] Comment: Interpretive Data Percent cell count reference ranges are not reported, since discordance with absolute values may lead to misinterpretation of CBC data. Current Interpretive Data was last revised on 2017. Testing performed by: [address] [address] Monocyte pct 7.7 % [facility] Comment: Interpretive Data Percent cell count reference ranges are not reported, since discordance with absolute values may lead to misinterpretation of CBC data. Current Interpretive Data was last revised on 2017. Testing performed by: [address] [address] Eosinophil pct 0.4 % MEGAN Comment: Interpretive Data Percent cell count reference ranges are not reported, since discordance with absolute values may lead to misinterpretation of CBC data. Current Interpretive Data was last revised on 2017. Testing performed by: [facility], [address] [place] [address]., [address] Basophil pct 0.1 % MEGAN Comment: Interpretive Data Percent cell count reference ranges are not reported, since discordance with absolute values may lead to misinterpretation of CBC data. Current Interpretive Data was last revised on 2017. Testing performed by: [address] [address] Blood 09/27/2024 10:4 1 AM CDT 09/27/2024 10:42 AM CDT Gilmer Menezes MD LAB BLOOD ORDERABLES Final Result Performing Organization Address [facility] Co de Phone Number [id number] [place] [address] * (ABNORMAL) Iron profile w/ IBC (09/27/2024 10:41 AM CDT) Iron 50 50 - 150 mcg/dL Comment:Testing performed by : [address] [address] TIBC 294 250 - 400 mcg/dL MEGAN RIZO Comment:Testing performed by : [address] [address] Transferrin saturation 17(L) 20 - 50 % MEGAN Comment:Testing performed by : [address] [address] Blood 09/27/2024 10:4 1 AM CDT 09/27/2024 11:42 AM CDT Gilmer Menezes MD LAB BLOOD ORDERABLES Final Result Performing Organization Address City/[facility] Co de Phone Number [id number] [place] [address] * (ABNORMAL) CBC with auto differential (09/27/2024 10:41 AM CDT) [facility] WBC 9.45 3.80 - 9.90 K/cumm Comment:Testing performed by : [address] [address] Hgb 13.7 13.0 - 17.5 g/dL MEGAN Comment:Testing performed by : [address] [address] Hct 40.0 38.9 - 50.3 % MEGAN Comment:Testing performed by : [address], [address] Plt 168 150 - 400 K/cumm MEGAN Comment:Testing performed by : [address] [address] MPV 9.7 9.1 - 12.3 fL MEGAN Comment:Testing performed by : [address] [address] RBC 4.73 4.30 - 5.80 M/cumm MEGAN Comment:Testing performed by : [address] [address] MCV 84.6 81.3 - 96.4 fL MEGAN Comment:Testing performed by : [address] [address] MCH 29.0 27.1 - 33.3 pg MEGAN Comment:Testing performed by : [address], [address] MCHC 34.3 32.3 - 35.7 g/dL MEGAN Comment:Testing performed by : [address], [address] RDW CV 14.5 11.1 - 14.9 % MEGAN Comment:Testing performed by : [address], [address] RDW SD 44.7 35.7 - 48.1 fL MEGAN Comment:Testing performed by : [address] [address] NRBC abs 0.00 0.00 - 0.01 K/cumm MEGAN Comment:Testing performed by : [address] [address] ANC Prelim 7.68(H) 1.50 - 6.50 K/cumm MEGAN Comment: Interpretive Data The rapid ANC is a preliminary automated count and may vary from the final ANC (Neut Abs) reported in the WBC differential that follows. Current interpretive data was last revised 2024. Testing performed by: [address] [address] Blood 09/27/2024 10:4 1 AM CDT 09/27/2024 10:42 AM CDT Gilmer Menezes MD LAB BLOOD ORDERABLES Final Result Performing Organization Address [facility] Co de Phone Number [address] [employer] [place] [address] * Ferritin (09/27/2024 10:41 AM CDT) Ferritin 87 30 - 400 ng/mL Comment:Testing performed by : [address] [address] Blood 09/27/2024 10:4 1 AM CDT 09/27/2024 11:42 AM CDT Gilmer Menezes MD LAB BLOOD ORDERABLES Edited Result - Final Performing Organization Address [facility] Co de Phone Number [address] [place] [address] * CEA (09/27/2024 10:41 AM CDT) CEA 1.5 <=5.0 ng/mL Comment: Interpretive Data: Reference Range: Non-Smokers: 0.0 5.0 ng/mL Smokers: 0.0 6.5 ng/mL The Alex CEA assay procedure was used. Results from different manufacturers or methods may not be comparable. Serial testing should be performed using the same method. Current interpretive data was last revised 2022. Testing performed by: [address] [address] Blood 09/27/2024 10:4 1 AM CDT 09/27/2024 11:42 AM CDT Gilmer Menezes MD LAB BLOOD ORDERABLES Final Result [facility] [address] [facility] [place] [address] * (ABNORMAL) Comprehensive metabolic panel (09/27/2024 10:41 AM CDT) Sodium 134(L) 135 - 145 mmol/L Comment:Testing performed by : [address] [address] Potassium, pl 3.6 3.3 - 4.9 mmol/L MEGAN Comment:Testing performed by : [address] [address] Chloride 98 97 - 110 mmol/L MEGAN Comment:Testing performed by : [address] [address] CO2 24 22 - 32 mmol/L MEGAN Comment:Testing performed by : [address] [address] Anion gap 12 2 - 15 mmol/L MEGAN Comment:Testing performed by : [address] [address] BUN 26(H) 6 - 25 mg/dL MEGAN Comment:Testing performed by : [address] [address] Creatinine 1.20 0.80 - 1.30 mg/dL MEGAN Comment:Testing performed by : [address] [address] Glucose 162 70 - 199 mg/dL MEGAN Comment: Interpretive [...] was last revised 2022. Testing performed by: [address] [address] Calcium 9.4 8.5 - 10.3 mg/dL MEGAN Comment:Testing performed by : [address] [address] Bilirubin, total 1.0 0.1 - 1.2 mg/dL MEGAN Comment:Testing performed by : [address] [address] Protein, pl 6.5 6.5 - 8.5 g/dL MEGAN Comment:Testing performed by : [address] [address] Albumin 4.3 3.5 - 5.0 g/dL MEGAN Comment:Testing performed by : [address] [address] Alk phos 95 40 - 130 Units/L MEGAN Comment:Testing performed by : [address] [address] ALT 18 7 - 55 Units/L MEGAN Comment:Testing performed by : [address] [address] AST 14 10 - 50 Units/L MEGAN Comment:Testing performed by : [address] [address] Blood 09/27/2024 10:4 1 AM CDT 09/27/2024 10:42 AM CDT us Gilmer Menezes MD LAB BLOOD ORDERABLES Final Result [facility] [address] [facility] [place] [address] * CT Chest Abdomen Pelvis W Contrast (09/20/2024 10:35 AM CDT) Anatomical Region Laterality Modality Body N/A Computed Tomogra phy 09/26/2024 9:23 AM CDT Narrative 09/26/2024 9:40 AM CDT EXAM DESCRIPTION: CT CHEST ABDOMEN PELVIS W CONTRAST REASON FOR STUDY: Colon cancer 3 month colon cancer f/u. No complaints. Hx of colon surgery, prostatectomy. TECHNIQUE: CT scan of [...] IODINE/ML INTRAVENOUS SYRINGE injected via intravenous COMPARISON: 2024, 02/02/2024 and 12/15/2023 FINDINGS: CHEST LUNGS: 2 mm nodule within the central right upper lobe on image number 29 is stable. No new suspicious nodule. Mild subsegmental scarring/atelectasis. Granulomatous calcification in the left lower lobe. Small area of thickening along the medial aspect of the left major fissure is stable. No pneumonic consolidation. PLEURA: No effusion. No pneumothorax. MEDIASTINUM/LISA: Mild diffuse heterogeneity of the thyroid gland, similar to previous examinations. There is no new mediastinal or hilar lymphadenopathy. Small sliding type hiatal hernia. HEART: The heart is normal in size, without a pericardial effusion. There are coronary artery calcifications. Changes of CABG. VASCULATURE CHEST: Thoracic aorta is normal in caliber. Atherosclerotic calcifications are noted. No dissection. Main pulmonary trunk is normal in caliber. AXILLA: No axillary lymphadenopathy. CHEST WALL: Gynecomastia, similar to the prior study. HARDWARE/LINES/TUBES: Sternotomy changes are present. Right Msreoq-K-Cvtp catheter in place, distal tip is at the cavoatrial junction. MUSCULOSKELETAL CHEST: Multilevel cervical and thoracic spondylosis. There are old right rib fracture deformities involving the 4th through 10th ribs, stable. ABDOMEN/PELVIS LIVER: Mildly enlarged, with steatosis, stable. No suspicious mass. GALLBLADDER: No stones identified. No wall thickening or inflammatory changes. BILE DUCTS: No intrahepatic or extrahepatic ductal dilatation. SPLEEN: Normal size. No focal lesions. Granulomatous calcifications. PANCREAS: No identified cystic or solid masses. No significant calcifications. No adjacent inflammation or peripancreatic fluid collections. Pancreatic duct not dilated. ADRENALS: Normal. KIDNEYS/URINARY TRACT: There is cortical scarring involving both kidneys, most evident at the anterior cortex of the left kidney. There are a few cortical hypodensities bilaterally, too small to characterize, stable. No new suspicious mass. No hydronephrosis or hydroureter. The urinary bladder is decompressed, limiting evaluation. GI: Stomach is decompressed, accentuating wall thickness. The small bowel loops are within normal limits in caliber. There is no obstruction. The appendix is normal. Postsurgical changes of partial colectomy with anastomosis, stable from prior examination. There is diverticulosis. The distal colon is decompressed, limiting evaluation. Postsurgical changes about the anterior aspect of the stomach are similar. PERITONEUM: There is no free intraperitoneal air. There is no free fluid. Scattered subcentimeter short axis mesenteric nodes are similar to the most recent examination. RETROPERITONEUM: No retroperitoneal mass or adenopathy. REPRODUCTIVE: Prostatectomy changes. VASCULATURE ABDOMEN: The abdominal aorta is atherosclerotic as are the major branch vessels. 2 right renal arteries noted. No abdominal aortic aneurysm. MUSCULOSKELETAL ABDOMEN PELVIS: There is lumbar spondylosis and degenerative disc disease. 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 OTHER: There is minimal residual stranding at the site of prior fluid collection deep to the right rectus abdominus musculature. Appearance is similar to the most recent prior examination. IMPRESSION: No evidence of metastatic disease within the chest, abdomen or pelvis. Stable 2 mm nodule in the right upper lobe. Postsurgical changes of partial colectomy with anastomosis, stable. Additional findings as above. THIS IS AN ELECTRONICALLY VERIFIED FINAL REPORT 09/26/2024 9:40 AM - Electronically signed by Corine Lee M.D. TW: JANET Report ID: [id number] Reading Location: [id number] Procedure Note Corine Lee MD - 09/26/2024 EXAM DESCRIPTION: CT CHEST ABDOMEN PELVIS W CONTRAST REASON FOR STUDY: Colon cancer 3 month colon cancer f/u. No complaints. Hx of colon surgery,prostatectomy. TECHNIQUE: CT scan of the chest, abdomen, and pelvis performed with intravenous and without oral contrast using helical scanning techniquewith dynamic intravenous contrast injection. Reconstructed coronal and sagittalMPR images reviewed. All images stored on PACS. Automated exposure control was used as a dose optimization technique for this examination. CONTRAST TYPE/DOSE: 100mL of IOVERSOL 350 MG IODINE/ML INTRAVENOUS SYRINGE injected via intravenous COMPARISON: 218 2024, 02/02/2024 and 12/15/2023 FINDINGS: CHEST LUNGS: 2 mm nodule within the central right upper lobe on image [id number] is stable. No new suspicious nodule. Mild subsegmentalscarring/atelectasis. Granulomatous calcification in the left lower lobe. Small area ofthickening along the medial aspect of the left major fissure is stable. No pneumonic consolidation. PLEURA: No effusion. No pneumothorax. MEDIASTINUM/LISA: Mild diffuse heterogeneity of the thyroid gland,similar to previous examinations. There is no new mediastinal or hilar lymphadenopathy. Small sliding type hiatal hernia. HEART: The heart is normal in size, without a pericardial effusion.There are coronary artery calcifications. Changes of CABG. VASCULATURE CHEST: Thoracic aorta is normal in caliber. Atherosclerotic calcifications are noted. No dissection. Main pulmonary trunk is normalin caliber. AXILLA: No axillary lymphadenopathy. CHEST WALL: Gynecomastia, similar to the prior study. HARDWARE/LINES/TUBES: Sternotomy changes are present. CnatsNifils-B-Qbje catheter in place, distal tip is at the cavoatrial junction. MUSCULOSKELETAL CHEST: Multilevel cervical and thoracic spondylosis.There are old right rib fracture deformities involving the 4th through 10thribs, stable. ABDOMEN/PELVIS LIVER: Mildly enlarged, with steatosis, stable. No suspicious mass. GALLBLADDER: No stones identified. No wall thickening or inflammatory changes. BILE DUCTS: No intrahepatic or extrahepatic ductal dilatation. SPLEEN: Normal size. No focal lesions. Granulomatous calcifications. PANCREAS: No identified cystic or solid masses. No significant calcifications. No adjacent inflammation or peripancreatic fluidcollections. Pancreatic duct not dilated. ADRENALS: Normal. KIDNEYS/URINARY TRACT: There is cortical scarring involving bothkidneys, most evident at the anterior cortex of the left kidney. There are a few cortical hypodensities bilaterally, too small to characterize, stable. Nonew suspicious mass. No hydronephrosis or hydroureter. The urinary bladderis decompressed, limiting evaluation. GI: Stomach is decompressed, accentuating wall thickness. The smallbowel loops are within normal limits in caliber. There is no obstruction. The appendix is normal. Postsurgical changes of partial colectomy with anastomosis, stable from prior examination. There is diverticulosis. The distal colon is decompressed, limiting evaluation. Postsurgical changesabout the anterior aspect of the stomach are similar. PERITONEUM: There is no free intraperitoneal air. There is no freefluid. Scattered subcentimeter short axis mesenteric nodes are similar to themost recent examination. RETROPERITONEUM: No retroperitoneal mass or adenopathy. REPRODUCTIVE: Prostatectomy changes. VASCULATURE ABDOMEN: The abdominal aorta is atherosclerotic as are themajor branch vessels. 2 right renal arteries noted. No abdominal aorticaneurysm. MUSCULOSKELETAL ABDOMEN PELVIS: There is lumbar spondylosis anddegenerative disc disease. Osteoarthritis involving the hips (left greater than right)and the SI joints. OTHER: There is minimal residual stranding at the site of prior fluid collection deep to the right rectus abdominus musculature. Appearance is similar to the most recent prior examination. IMPRESSION: No evidence of metastatic disease within the chest, abdomen or pelvis. Stable 2 mm nodule in the right upper lobe. Postsurgical changes of partial colectomy with anastomosis, stable. Additional findings as above. THIS IS AN ELECTRONICALLY VERIFIED FINAL REPORT 09/26/2024 9:40 AM - Electronically signed by Corine Lee M.D. TW: JANET Report ID: [id number] Reading Location: [id number] Gilmer Menezes MD IMG CT PROCEDURES Fi nal Result * POCT creatinine for contrast evaluation (09/20/2024 10:27 AM CDT) Creatinine POC 1.30 0.80 - 1.30 mg/dL Comment:Testing performed by : [facility], [address] [place] [address], [place]., [address] Blood 09/20/2024 10:2 7 AM CDT 09/20/2024 10:27 AM CDT us Jonelle Deluna MD POINT OF CARE TEST ORDERAB LES Final Result MEGAN [address] [place] [address] * Colonoscopy (09/16/2024 2:30 PM CDT) Anatomical Region Laterality Modality Other us Historical Provider ENDOSCOPY PROCEDURES Zaira l Result * PSA diagnostic (07/27/2024 2:53 PM CDT) Blood us Bryanna Hall NP LAB BLOOD ORDERABLES Edited R esult - Final [facility] [address] [place] [address], [facility] from Last 3 Months Insurance [facility] MEDICARE [facility] MEDICARE ADVANTAGE AET MEDICARE [facility] Address: [address] [place] [address] [facility] MEDIC[facility] Advance Directives For more information, please contact: [phone] * Full Code (Latest Code Status on File) Date Activated Date Inactivated Comments 12/28/2023 7:16 AM 12/29/2023 5:30 AM * Full Code Date Activated Date Inactivated Comments 11/02/2023 4:41 PM 11/05/2023 3:41 PM * Full Code Date Activated Date Inactivated Comments 10/16/2020 1:38 PM 10/18/2020 8:32 PM Care Teams Pipe Bender Relationship Specialty Start Date End Date Kaiden Marshall DO [address] [place] [address] PCP - General Family Medicine 10/10/21 Timbo Cardoso MD Consulting Physician Neurology 10/18/20 Mike Ledezma MD PhD [address] [place] [address] Radiation Oncologist Radiation Oncology 02/21/21 Edelmira Alexandre NP [address] [place] [address] Registered Nurse Family Medicine 09/08/23 Jonelle Deluna MD [address] [facility] [phone] [place], [place] [id number] Surgeon Colon and Rectal Surgery 09/29/23 Gilmer Menezes MD [address] [facility] 8056 [place] [address] Medical Oncologist/Rn Hemodialysis Medical Oncology 11/24/23
--- OUTSIDE RECORDS SUMMARY | 2024-10-17 15:26 | XMS_ITS | Clinical Summary ---
Author Organization [facility] Address [address] [place] [address] Phone Care Team Providers Care Die Cast Technician Name Role Phone Karly Pat MD Unavailable Kaiden Marshall MD Primary Care Provider Allergies No known active allergies Medications amLODIPine [...] Active fluticasone (FLONASE) 50 MCG/ACT Suspension 1 Hawi by Nasal route nightly. 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 Body Mass Index 30.28 05/26/2023 9:24 AM PROCESSING CLERK Plan of Treatment Upcoming Encounters Date Type Department Care Team (Late st Contact Info) Description 02/21/2025 10:00 AM CDT Office Visit [facility] - Endocrinology - [place] [address] [place] [address] Karly Pat MD [address] [address] Health Maintenance Due Date Last Done Comments Hepatitis C Virus (HCV) Screening 1950 TdaP Immunization 1950 Zoster Immunization (1 of 2) 12/19/1967 Cologuard 1993 Colonoscopy 1993 Colorectal Cancer Screening 1993 Immunochemical Fecal Occult Blood 1993 Hepatitis B Immunization (1 of 3 - [...] topic Insurance MEDICARE C [employer] Care Teams Die Cast Technician Relationship Specialty Start Date End Date Kaiden Marshall MD [address] [place] [address] PCP - General Family Medicine 02/20/22 Karly Pat MD [address] [address] Consulting Physician Endocrinology 02/11/22
--- OUTSIDE RECORDS SUMMARY | 2024-10-17 15:26 | XMS_ITS | Encounter Summary ---
Author Organization [facility] Address [facility] [place] [address] Care Team Providers Care Operative Supervisor Name Role Phone Timbo Cardoso MD Unavailable Mike Ledezma MD PhD Unavailable [phone] Esdras Conway MD Unavailable [phone] Kaiden Marshall DO Primary Care Provider Edelmira Alexandre NP Unavailable [phone] Jonelle Deluna MD Unavailable [phone] Gilmer Menezes MD Unavailable [phone] Encounter Details Date Type Department Care Team (Late st Contact Info) Description 02/11/2024 Telephone [facility] 1 [place] [address] Tiffany Kennedy, RN Social History Tobacco Use [...] on file 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 Gender Identity Male 01/29/2021 1:19 PM CDT Sexual Orientation Not on file documented as of this encounter Plan of Treatment Upcoming Encounters Date Type Department Care Team (Late st Contact Info) Description 11/30/2024 1:00 PM CDT Hospital Encounter [facility] Endoscopy at [facility] [address] [place] [address] Jonelle Deluna MD [address] [facility] [phone] [place] [address] 11/30/2024 1:00 PM CDT - 11/30/2024 1:45 PM CDT Surgery [facility] Endoscopy at [address] [phone] Jonelle Deluna MD [address] [facility] [phone] [place] [address] COLONOSCOPY Scheduled Procedures Name Priority Associated Diagnoses Date/Ti me COLONOSCOPY Malignant neoplasm of colon, unspecified part of colon (HCC) 11/30/2024 1:00 PM CDT documented as of this encounter Visit Diagnoses Not on filedocumented in this encounter Care Teams Operative Supervisor Relationship Specialty Start Date End Date Kaiden Marshall DO [address] [place] [address] PCP - General Family Medicine 10/10/21 Timbo Cardoso MD Consulting Physician Neurology 10/18/20 Mike Ledezma MD PhD [address] [place] [address] Radiation Oncologist Radiation Oncology 02/21/21 Esdras Conway MD [address] [place] [address] Referring Physician Urology 02/21/21 04/20/24 Edelmira Alexandre NP [address] [place] [address] Registered Nurse Family Medicine 09/08/23 Jonelle Deluna MD [address] [facility] [phone] [place] [address] Surgeon Colon and Rectal Surgery 09/29/23 [place] [address] [place] [address] [place] [address] Medical Oncologist/Cottage Master Medical Oncology 11/24/23 documented as of this encounter
--- OUTSIDE RECORDS SUMMARY | 2024-10-17 15:26 | XMS_ITS | Referral Summary ---
Author Organization [facility] Address [address] [place] [address] Care Team Providers Care Telegraph Office Route Aide Name Role Phone Timbo Cardoso MD Unavailable Mike Ledezma MD PhD Unavailable [phone] Kaiden Marshall DO Primary Care Provider Edelmira Alexandre REGISTERED PHARMACY TECHNICIAN Unavailable [phone] Jonelle Deluna MD Unavailable [phone] Gilmer Menezes MD Unavailable + [phone] Encounters Date Type Department Care Team Description 09/27/2024 10:30 AM CDT Clinical Support [facility] at [address] [address] Malignant neoplasm of colon, unspecified part of colon (HCC) 09/27/2024 11:00 AM CDT Office Visit [facility] [address] [place] [address] [address] [place] [address] Gilmer Menezes MD Malignant neoplasm of colon, unspecified part of colon (HCC) (Primary Dx) 09/26/2024 Orders Only [facility] [address] [place] [address] [address] [place] [address] ProviderHumberto MD 09/20/2024 10:08 AM CDT - 09/20/2024 11:59 PM CDT Hospital Encounter [facility] [address] [place] [address] Malignant neoplasm of colon, unspecified part of colon (HCC) Discharge Disposition: Discharge to home or self care 08/18/2024 11:00 AM CDT Office Visit [facility] Radiation Oncology [address] [place] [address] Bryanna Hall NP Prostate cancer (HCC) 08/09/2024 Telephone [facility] [address] [facility] [address] [place] [phone] Gilmer Menezes MD 08/01/2024 Telephone [facility] Radiation Oncology [address] [place] [address] Henrry Darby RN 07/27/2024 Orders Only [facility] Radiation Oncology [address] [place] [address] Bryanna Hall NP from Last 3 Months Allergies No known [...] 5 mL 3 03/22/20 24 025 Discontin ued(Stevan corral completed ) Active Problems Problem Noted Date Diagnosed Date DVT of lower extremity, bilateral 03/07/2024 Iron deficiency anemia due to chronic blood loss 01/13/2024 Anemia 01/12/2024 Colon cancer 11/02/2023 Acute postoperative abdominal pain 11/02/2023 Coronary artery disease invo lving nome coronary artery of nome heart 05/02/2023 Iron deficiency anemia 05/12/2022 AV [...] (08/15/2020): Added automatically from request for surgery [id number] Assessment & Plan (02/12/2022 11:29 AM CDT): [...] (07/12/2020): Added automatically from request for surgery [id number] Rising PSA following treatme nt for malignant neoplasm of prostate 04/20/2020 Overview (04/20/2020): Added automatically from request for surgery [id number] Elevated PSA 04/20/2020 Overview (03/07/2024): Added automatically from request for surgery [id number] Edema of left lower extremity 02/28/2020 History [...] on file 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 Gender Identity Male 01/29/2021 1:19 PM CDT [...] 174 cm (5' 8.5) 04/19/2024 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 Body Mass Index 32.22 04/19/2024 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 Plan of Treatment Upcoming Encounters Date Type Department Care Team (Late st Contact Info) Description 11/30/2024 1:00 PM CDT Hospital Encounter [facility]oscopy at [facility] [address] [place] [phone] Jonelle Deluna MD [address] [facility] [phone] [place] [address] 11/30/2024 1:00 PM CDT - 11/30/2024 1:45 PM CDT Surgery [facility] Endoscopy at [address] [address] Jonelle Deluna MD [address] [facility] [phone] [place] [address] COLONOSCOPY Scheduled Procedures Name Priority Associated Diagnoses Date/Ti me COLONOSCOPY Malignant neoplasm of colon, unspecified part of colon (HCC) 11/30/2024 1:00 PM CDT Medical Devices Implanted Type Area Compensation Business Partner Device Identifier Shelf Expiration Date Model / Serial / Lot Stents Implanted:Qty: 11 Bilateral: Heart Description:2004,2007,2009,2 014,2014,2019,2020 Stents and bypass 1993 [employer] Xcela Power Port 8fr [id number] - [id number] Implanted:Qty: 1 on 12/28/2023 at [facility] [employer] 06/20/2028 [id number] / / [id number] Explanted Type Area Compensation Business Partner Device Identifier Shelf Expiration Date Model / Serial / Lot [employer] Eloy 180-223 Contour 6fr 26cm Large Inner Lumen Low Profile Bladder Melvin Taper Latex Free - [id number] Implanted:Qty: 1 on 09/13/2020 by Esdras Conway MD at [facility] Explanted:Qty: 1 on 10/16/2020 at [facility] [employer] Eloy 05/21/2023 180-850 / / [id number] Procedures Procedure Name Priority Date/Time Associated Diagnosis [...] was last reviewed 2021. Testing performed by: [address] [address] Blood 09/27/2024 10:4 1 AM CDT 09/27/2024 10:42 AM CDT Gilmer Menezes MD LAB BLOOD ORDERABLES Final Result [facility] [address] [facility] Department [place] [address] * (ABNORMAL) Differential, auto (09/27/2024 10:41 AM CDT) Neutrophil abs 7.68(H) 1.50 - 6.50 K/cumm Comment:Testing performed by : [address] [address] Imm gran abs 0.06 0.00 - 0.10 K/cumm MEGAN Comment:Testing performed by : [address] [address] Lymphocyte abs 0.93 0.80 - 3.30 K/cumm MEGAN Comment:Testing performed by : [address] [address] Monocyte abs 0.73 0.20 - 0.80 K/cumm MEGAN Comment:Testing performed by : [address] [address] Eosinophil abs 0.04 0.00 - 0.50 K/cumm [facility] Comment:Testing performed by : [address] [address] Basophil abs 0.01 0.00 - 0.10 K/cumm [facility] Comment:Testing performed by : [address] [address] Neutrophil pct 81.4 % [facility] Comment: Interpretive Data Percent cell count reference ranges are not reported, since discordance with absolute values may lead to misinterpretation of CBC data. Current Interpretive Data was last revised on 2017. Testing performed by: [address] [address] Imm gran pct 0.6 % [facility] Comment: Interpretive Data Percent cell count reference ranges are not reported, since discordance with absolute values may lead to misinterpretation of CBC data. Current Interpretive Data was last revised on 2017. Testing performed by: [address] [address] Lymphocyte pct 9.8 % [facility] Comment: Interpretive Data Percent cell count reference ranges are not reported, since discordance with absolute values may lead to misinterpretation of CBC data. Current Interpretive Data was last revised on 2017. Testing performed by: [address] [address] Monocyte pct 7.7 % [facility] Comment: Interpretive Data Percent cell count reference ranges are not reported, since discordance with absolute values may lead to misinterpretation of CBC data. Current Interpretive Data was last revised on 2017. Testing performed by: [address] [address] Eosinophil pct 0.4 % [facility] Comment: Interpretive Data Percent cell count reference ranges are not reported, since discordance with absolute values may lead to misinterpretation of CBC data. Current Interpretive Data was last revised on 2017. Testing performed by: [address] [address] Basophil pct 0.1 % [facility] Comment: Interpretive Data Percent cell count reference ranges are not reported, since discordance with absolute values may lead to misinterpretation of CBC data. Current Interpretive Data was last revised on 2017. Testing performed by: [address] [address] Blood 09/27/2024 10:4 1 AM CDT 09/27/2024 10:42 AM CDT Gilmer Menezes MD LAB BLOOD ORDERABLES Final Result Performing Organization Address [facility] de Phone Number [place] [phone] [facility] [place] [address] * (ABNORMAL) Iron profile w/ IBC (09/27/2024 10:41 AM CDT) Pathologist [facility] Iron 50 50 - 150 mcg/dL Comment:Testing performed by : [address] [address] TIBC 294 250 - 400 mcg/dL MEGAN Comment:Testing performed by : [address] [address] Transferrin saturation 17(L) 20 - 50 % MEGAN Comment:Testing performed by : [address] [address] Blood 09/27/2024 10:4 1 AM CDT 09/27/2024 11:42 AM CDT Gilmer Menezes MD LAB BLOOD ORDERABLES Final Result Performing Organization Address [facility] de Phone Number [place] [phone] [facility] [place] [address] * (ABNORMAL) CBC with auto differential (09/27/2024 10:41 AM CDT) Pathologist [facility] WBC 9.45 3.80 - 9.90 K/cumm Comment:Testing performed by : [address] [address] Hgb 13.7 13.0 - 17.5 g/dL MEGAN Comment:Testing performed by : [address] [address] Hct 40.0 38.9 - 50.3 % MEGAN Comment:Testing performed by : [address], [address] Plt 168 150 - 400 K/cumm MEGAN Comment:Testing performed by : [address], [address] MPV 9.7 9.1 - 12.3 fL MEGAN Comment:Testing performed by : [address], [address] RBC 4.73 4.30 - 5.80 M/cumm MEGAN Comment:Testing performed by : [address], [address] MCV 84.6 81.3 - 96.4 fL MEGAN Comment:Testing performed by : [address], [address] MCH 29.0 27.1 - 33.3 pg MEGAN Comment:Testing performed by : [address], [address] MCHC 34.3 32.3 - 35.7 g/dL MEGAN Comment:Testing performed by : [address], [address] RDW CV 14.5 11.1 - 14.9 % MEGAN Comment:Testing performed by : [address], [address] RDW SD 44.7 35.7 - 48.1 fL MEGAN Comment:Testing performed by : [address], [address] NRBC abs 0.00 0.00 - 0.01 K/cumm MEGAN Comment:Testing performed by : [address], [address] ANC Prelim 7.68(H) 1.50 - 6.50 K/cumm MEGAN Comment: Interpretive Data The rapid ANC is a preliminary automated count and may vary from the final ANC (Neut Abs) reported in the WBC differential that follows. Current interpretive data was last revised 2024. Testing performed by: [address] [place]., [address] Blood 09/27/2024 10:4 1 AM CDT 09/27/2024 10:42 AM CDT us Gilmer Menezes MD LAB BLOOD ORDERABLES Final Result Performing Organization Address [facility]/ZIP Co de Phone Number [id number] [address] * Ferritin (09/27/2024 10:41 AM CDT) Pathologist [facility] Ferritin 87 30 - 400 ng/mL Comment:Testing performed by : [address] [address] Blood 09/27/2024 10:4 1 AM CDT 09/27/2024 11:42 AM CDT us Gilmer Menezes MD LAB BLOOD ORDERABLES Edited Result - Final Performing Organization Address [facility] Co de Phone Number [address] [address] * CEA (09/27/2024 10:41 AM CDT) Pathologist [facility] CEA 1.5 <=5.0 ng/mL Comment: Interpretive Data: Reference Range: Non-Smokers: 0.0 5.0 ng/mL Smokers: 0.0 6.5 ng/mL The Alex CEA assay procedure was used. Results from different manufacturers or methods may not be comparable. Serial testing should be performed using the same method. Current interpretive data was last revised 2022. Testing performed by: [address] [address] Blood 09/27/2024 10:4 1 AM CDT 09/27/2024 11:42 AM CDT us Gilmer Menezes MD LAB BLOOD ORDERABLES Final Result Performing Organization Address City/[facility] Co de Phone Number [id number] Department [place] [address] * (ABNORMAL) Comprehensive metabolic panel (09/27/2024 10:41 AM CDT) Sodium 134(L) 135 - 145 mmol/L Comment:Testing performed by : [address] [address] Potassium, pl 3.6 3.3 - 4.9 mmol/L MEGAN Comment:Testing performed by : [address], [place]., [address] Chloride 98 97 - 110 mmol/L MEGAN Comment:Testing performed by : [address], [place]., [address] CO2 24 22 - 32 mmol/L MEGAN Comment:Testing performed by : [address] [address] Anion gap 12 2 - 15 mmol/L MEGAN Comment:Testing performed by : [address] [address] BUN 26(H) 6 - 25 mg/dL MEGAN Comment:Testing performed by : [address] [address] Creatinine 1.20 0.80 - 1.30 mg/dL MEGAN Comment:Testing performed by : [address] [address] Glucose 162 70 - 199 mg/dL MEGAN [...] was last revised 2022. Testing performed by: [address] [address] Calcium 9.4 8.5 - 10.3 mg/dL MEGAN Comment:Testing performed by : [facility], [address] [place] [address]., [address] Bilirubin, total 1.0 0.1 - 1.2 mg/dL MEGAN Comment:Testing performed by : [address] [address] Protein, pl 6.5 6.5 - 8.5 g/dL MEGAN Comment:Testing performed by : [address] [address] Albumin 4.3 3.5 - 5.0 g/dL MEGAN Comment:Testing performed by : [address] [address] Alk phos 95 40 - 130 Units/L MEGAN Comment:Testing performed by : [address] [address] ALT 18 7 - 55 Units/L MEGAN Comment:Testing performed by : [address] [address] AST 14 10 - 50 Units/L MEGAN Comment:Testing performed by : [address] [address] Blood 09/27/2024 10:4 1 AM CDT 09/27/2024 10:42 AM CDT Gilmer Menezes MD LAB BLOOD ORDERABLES Final Result Performing Organization Address City/State/[facility] Co sd Phone Number [facility] [address] [facility] Department [place] [address] * CT Chest Abdomen Pelvis W Contrast [...] study. HARDWARE/LINES/TUBES: Sternotomy changes are present. Right Xvqjzr-Z-Dcht catheter in place, distal tip is at [...] Corine Lee M.D. TW: JANET Report ID: [id number] Reading Location: [place] [address] Procedure Note Corine Lee MD - 09/26/2024 [...] the central right upper lobe on image [id number] is stable. No new suspicious nodule. Mild [...] prior study. HARDWARE/LINES/TUBES: Sternotomy changes are present. LpsboIfcczx-I-Iuca catheter in place, distal tip is at [...] Electronically signed by Corine Lee M.D. TW: TW Report ID: [id number] Reading Location: [place] [address] Gilmer Menezes MD IMG CT PROCEDURES Fi nal Result * POCT creatinine for contrast evaluation (09/20/2024 10:27 AM CDT) Creatinine POC 1.30 0.80 - 1.30 mg/dL Comment:Testing performed by : [facility], [address] [place] [address]., [address] Blood 09/20/2024 10:2 7 AM CDT 09/20/2024 10:27 AM CDT us Jonelle Deluna MD POINT OF CARE TEST ORDERAB LES Final Result [id number] [id number] [facility] [place] [address] * Colonoscopy (09/16/2024 2:30 PM CDT) Anatomical Region Laterality Modality Other Historical Provider ENDOSCOPY PROCEDURES Zaira l Result * PSA diagnostic (07/27/2024 2:53 PM CDT) Blood us Bryanna Hall NP LAB BLOOD ORDERABLES Edited R esult - Final [facility] [address] [place] [address], [facility] from Last 3 Months Insurance [facility]ICARE [facility] Address: [facility] [id number] [place] [address] [facility] MEDICARE ADVANTAGE [facility] Address: [address] [address] [place] [address] [facility] MEDICARE [facility] MEDICARE Advance Directives For more information, please contact: [phone] * Full Code (Latest Code Status on File) Date Activated Date Inactivated Comments 12/28/2023 7:16 AM 12/29/2023 5:30 AM * Full Code Date Activated Date Inactivated Comments 11/02/2023 4:41 PM 11/05/2023 3:41 PM * Full Code Date Activated Date Inactivated Comments 10/16/2020 1:38 PM 10/18/2020 8:32 PM Care Teams Telegraph Office Route Aide Relationship Specialty Start Date End Date Kaiden Marshall DO [facility] [place] [address] PCP - General Family Medicine 10/10/21 Timbo Cardoso MD Consulting Physician Neurology 10/18/20 Mike Ledezma MD PhD [address] [place] [address] Radiation Oncologist Radiation Oncology 02/21/21 Edelmira Alexandre NP [address] [place] [address] Registered Nurse Family Medicine 09/08/23 Jonelle Deluna MD [address] [facility] [phone] [place] [address] Surgeon Colon and Rectal Surgery 09/29/23 [place] [address] [place] [address] [place], [place] [id number] Medical Oncologist/[facility] Medical Oncology 11/24/23
--- OUTSIDE RECORDS SUMMARY | 2024-10-17 15:26 | XMS_ITS | Encounter Summary ---
Author Organization [facility] Healthcare Address [address] [place] [address] Care Team Providers Care Supervisor Sawmill Name Role Phone Giuseppe Kulkrani MD Primary Care Provider Timbo Cardoso MD Unavailable Mike Ledezma MD PhD Unavailable [phone] Esdras Conway MD Unavailable [phone] Kaiden Marshall DO Primary Care Provider Edelmira Alexandre NP Unavailable [phone] Jonelle Deluna MD Unavailable [phone] Gilmer Menezes MD Unavailable [phone] Encounter Details Date Type Department Care Team (Late st Contact Info) Description 07/04/2020 Telephone [facility] [address] [place] [address] Jonelle Benitez, RT Social History Tobacco Use Types Packs/Day Years Used Date Smoking Tobacco: Never Smokeless Tobacco: Never Alcohol Use Standard Drinks/Week Comments Yes 0 (1 standard drink = 0.6 oz pur e alcohol) very rare wine Sex and Gender Information Value Date Recorded Sex Assigned at Not on file 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 Gender Identity Male 01/29/2021 1:19 PM CDT Sexual Orientation Not on file documented as of this encounter Plan of Treatment Upcoming Encounters Date Type Department Care Team (Late Contact Info) Description 11/30/2024 1:00 PM CDT Hospital Encounter [facility] [address] [place] [address] Jonelle Deluna MD [address] [facility] [phone] [place] [address] 11/30/2024 1:00 PM CDT - 11/30/2024 1:45 PM CDT Surgery [facility] [address] [place] [address] Jonelle Deluna MD [address] [facility] [phone] [place] [address] COLONOSCOPY Scheduled Procedures Name Priority Associated Diagnoses Date/Ti me COLONOSCOPY Malignant neoplasm of colon, unspecified part of colon (HCC) 11/30/2024 1:00 PM CDT documented as of this encounter Visit Diagnoses Not on filedocumented in this encounter Care Teams Supervisor Sawmill Relationship Specialty Start Date End Date Giuseppe Kulkarni MD PCP - General Family Medicine 03/20/20 10/09/21 Kaiden Marshall DO [address] [place] [address] PCP - General Family Medicine 10/10/21 Timbo Cardoso MD Consulting Physician Neurology 10/18/20 Mike Ledezma MD PhD [address] [place] [address] Radiation Oncologist Radiation Oncology 02/21/21 Esdras Conway MD [address] [place] [address] Referring Physician Urology 02/21/21 04/20/24 Edelmira Alexandre NP [address] [place] [address] Registered Nurse Family Medicine 09/08/23 Jonelle Deluna MD [address] [facility] [phone] [place] [address] Surgeon Colon and Rectal Surgery 09/29/23 Gilmer Menezes MD [address] [facility] 8056 [place], [place] [id number] Medical Oncologist/Truck Repair Supervisor Medical Oncology 11/24/23 documented as of this encounter
--- OUTSIDE RECORDS SUMMARY | 2024-10-17 15:26 | XMS_ITS ---
Author Organization [facility] Address [address] [place] [address] Care Team Providers Care Cattery Operator Name Role Phone Timbo Cardoso MD Unavailable Mike Ledezma MD PhD Unavailable [phone] Kaiden Marshall DO Primary Care Provider Edelmira Alexandre NP Unavailable [phone] Jonelle Deluna MD Unavailable [phone] Gilmer Menezes MD Unavailable [phone] Active Problems Problem Noted Date Diagnosed Date DVT of lower extremity, bilateral 03/07/2024 Iron deficiency anemia due to chronic blood loss 01/13/2024 Anemia 01/12/2024 Colon cancer 11/02/2023 Acute postoperative abdominal pain 11/02/2023 Coronary artery disease invo lving [place] coronary artery of [place] heart 05/02/2023 Iron deficiency anemia 05/12/2022 AV [...] (08/15/2020): Added automatically from request for surgery [id number] Assessment & Plan (02/12/2022 11:29 AM CDT): [...] (07/12/2020): Added automatically from request for surgery [id number] Rising PSA following treatme nt for malignant neoplasm of prostate 04/20/2020 Overview (04/20/2020): Added automatically from request for surgery [id number] Elevated PSA 04/20/2020 Overview (03/07/2024): Added automatically from request for surgery [id number] Edema of left lower extremity 02/28/2020 History [...]
== END 2024-10-17 14:12 | disposition home or self-care (01) ==
LOC: CHSIMG 14:14
PROVIDERS: PCP Family Medicine; Visit Provider Family Medicine
DX: I10 Essential (primary) hypertension (principal); E11.59 Type 2 diabetes mellitus with other circulatory complications; I77.1 Stricture of artery
CPT/HCPCS: 93922

== ENCOUNTER 2024-11-01 13:22 | Outpatient (CLI) | payer MEDICARE, SELFPAY ==
--- NOTE | ~2024-11-01 | XR_ITS ---
HISTORY: M25.561 - Pain in right knee COMPARISON: None TECHNIQUE: 2 views of the left knee were performed FINDINGS: No acute or subacute fracture. Significant medial and trace lateral tibiofemoral joint space narrowing is identified. Narrowing of the patellofemoral joint space is also noted with osteophytic bridging. Multiple clips projecting within the soft tissues Significant calcified atherosclerotic disease is also noted. No suprapatellar joint effusion is identified. The infrapatellar joint space is clear. IMPRESSION: Severe degenerative disease, without acute fracture. Reviewed, dictated and finalized at location A.
--- NOTE | ~2024-11-01 | XR_ITS ---
EXAM/ PROCEDURE: [id number] - 11/01/2024 13:27 CDT HISTORY: 73 years old Male with M25.561 - Pain in right knee COMPARISON: None available TECHNIQUE: Three view(s) FINDINGS/ IMPRESSION: There are no fractures or dislocations.Joint space narrowing, subchondral sclerosis, subchondral cyst formation and osteophyte formation, compatible with moderate osteoarthritis. Fabella seen. Reviewed, dictated and finalized at location A.
--- NOTE | ~2024-11-01 | XR_ITS ---
EXAM/ PROCEDURE: XR shoulder LT min 2V - 11/01/2024 13:27 CDT HISTORY: 73 years old Male with M25.511 - Pain in right shoulder COMPARISON: None available TECHNIQUE: Four view(s) FINDINGS/ IMPRESSION: There are no fractures or dislocations.Joint space narrowing, subchondral sclerosis, subchondral cyst formation and osteophyte formation, compatible with moderate osteoarthritis. Status post CABG. Reviewed, dictated and finalized at location A.
--- NOTE | ~2024-11-01 | XR_ITS ---
EXAM/ PROCEDURE: XR shoulder RT min 2V - 11/01/2024 13:27 CDT HISTORY: 73 years old Male with M25.511 - Pain in right shoulder COMPARISON: None available TECHNIQUE: Four view(s) FINDINGS/ IMPRESSION: There are no fractures or dislocations.Joint space narrowing, subchondral sclerosis, subchondral cyst formation and osteophyte formation, compatible with moderate osteoarthritis. Reviewed, dictated and finalized at location A.
== END 2024-11-01 13:23 | disposition home or self-care (01) ==
LOC: CHSIMG 13:24
PROVIDERS: PCP Family Medicine; Visit Provider Nurse Practitioner Family
DX: M25.511 Pain in right shoulder (principal); M25.512 Pain in left shoulder; M25.561 Pain in right knee; M25.562 Pain in left knee; Z95.1 Presence of aortocoronary bypass graft
CPT/HCPCS: 73030; 73560

== ENCOUNTER 2024-12-07 08:40 | Outpatient (CLI) | payer MEDICARE, SELFPAY ==
--- OUTSIDE RECORDS SUMMARY | 2024-12-07 08:52 | XMS_ITS | Encounter Summary ---
Author Organization [facility] Address [address] [place] [address] Care Team Providers Care Second Hand Name Role Phone Rita Lee MD Primary Care Provider Chintan Martinez MD Unavailable [phone] Pérez Herr MD Primary Care Provider [phone] Giuseppe Kulkarni MD Primary Care Provider Angela Miramontes [facility] Unavailable [phone] Cabrera Crouch MD Unavailable [phone] Teresa Morin APRN, NP-C Unavailable [phone] Ang Hudson MD Unavailable Kaiden Marshall DO Primary Care Provider [phone] Kaiden Marshall DO Primary Care Provider [phone] Matteo Denise MD Unavailable [phone] Jonelle Deluna MD Unavailable [phone] Houston Beaver MD Unavailable [phone] Marciaon Yeager MD Unavailable [phone] Encounter Details Date Type Department Care Team (Late st Contact Info) Description 05/12/2017 Abstract [facility] [address] [place] [address] Chintan Spears MD [address] [place] [address] Social History Tobacco Use Types Packs/Day Years Used Date Smoking Tobacco: Never Smokeless Tobacco: Never Alcohol Use Standard Drinks/Week Comments Yes 0 (1 standard drink = 0.6 oz pur e alcohol) Occasionally Sex and Gender Information Value Date Recorded Sex Assigned at Male 05/25/2024 9:04 AM COLLECTION SYSTEMS WORKER Legal Sex Male 9:59 PM CDT Gender Identity Not on file Sexual Orientation Not on file Occupation Industry Job Start Date Job End Date Retired Not on file Not on file Not on file documented as of this encounter Plan of Treatment Upcoming Encounters Date Type Department Care Team (Late st Contact Info) Description 12/30/2024 9:[address] [facility] [address] [place] [address] Ang Hudson MD [address] [facility], [address] [place], [place] [address] 06/02/2025 10:00 AM COLLECTION SYSTEMS WORKER Office Visit [facility] eld [address] [place] [phone] Teresa Morin, DIRECTOR OF RESPIRATORY THERAPY, AGRICULTURAL PRODUCE WASHER-C [address] [facility] [address] [place] [address] documented as of this encounter Procedures Procedure [...] documented as of this encounter Care Teams Second Hand Relationship Specialty Start Date End Date Rita Lee MD PCP - General SURGERY 01/03/16 11/15/18 Pérez Herr MD [address] [place] [address] PCP - General FAMILY PRACTICE 11/16/18 06/08/19 [place] [address] [place] [address] [address] [place] [address] PCP - General FAMILY PRACTICE 06/09/19 10/14/21 Kaiden Marshall DO [address] [place] [address] PCP - General FAMILY PRACTICE 10/15/21 11/11/22 Kaiden Marshall DO [facility] [place] [address] PCP - General FAMILY PRACTICE 11/12/22 Chintan Spears MD [address] [place] [phone] [place] Cut In Station Operator CARDIOVASCULAR DISEASE 01/03/16 12/20/23 Angela Miramontes AGACNP-BC [address] [place] [address] NURSE PRACTITIONER 07/07/19 07/05/23 Cabrera Crouch MD [address] [place] [address] CARDIOTHORACIC SURGERY 10/26/19 4 Teresa Morin, DIRECTOR OF RESPIRATORY THERAPY, AGRICULTURAL PRODUCE WASHER-C [address] [place] [phone] NURSE PRACTITIONER 12/01/19 Ang Hudson MD [address] [place] [address] [phone] Vascular/Cut In Station Operator INTERNAL MEDICINE 01/05/20 Matteo Denise MD [address] [place] [address] Consulting Physician ORTHOPAEDIC SURGERY 07/06/23 Jonelle Deluna MD [address] [place] [address] COLON/RECTAL SURGERY 10/06/23 Houston Beaver MD [address] [place] [address] Consulting Physician INTERVENTIONAL CARDIOLOGY 05/25/24 Marciano Yeager MD [address] [place] [address] Consulting Physician INTERVENTIONAL CARDIOLOGY 11/02/24 documented as of this encounter
--- OUTSIDE RECORDS SUMMARY | 2024-12-07 08:52 | XMS_ITS | Encounter Summary ---
Author Organization [facility] Address [address] [place] [address] Care Team Providers Care Raw Silk Grader Name Role Phone Chintan Spears MD Unavailable [phone] Giuseppe Kulkarni MD Primary Care Provider [facility]es [facility] Un[facility] [phone] Cabrera Crouch MD Unavailable [phone] Teresa Morin APRN, K 12 SCHOOL PROFESSIONAL-C Unavailable [phone] Ang Hudson MD Unavailable Kaiden Marshall DO Primary Care Provider [phone] Kaiden Marshall DO Primary Care Provider [phone] Matteo Denise MD Unavailable [phone] Jonelle Deluna MD Unavailable [phone] Houston Beaver MD Unavailable [phone] Marciano Yeager MD Unavailable [phone] Encounter Details Date Type Department Care Team (Late st Contact Info) Description 10/02/2021 Pre-Procedure Call [place] [facility] [address] [place] [address] Chintan Spears MD [address] [place] [address] Social History Tobacco Use Types Packs/Day Years Used Date Smoking Tobacco: Never Smokeless Tobacco: Never Alcohol Use Standard Drinks/Week Comments Yes 0 (1 standard drink = 0.6 oz pur e alcohol) rarely Sex and Gender Information Value Date Recorded Sex Assigned at Male 05/25/2024 9:04 AM TOE FORMER Legal Sex Male 9:59 PM CDT [...] CDT [facility]ointment [facility] [address] [address] Ang Hudson MD [address] [facility] [address] [place] [address] 06/02/2025 10:00 AM TOE FORMER Office Visit [facility] el [address] [place] [address] Teresa Morin, WET PROCESS OPERATOR, K 12 SCHOOL PROFESSIONAL-C [address] [facility] [address] [place] [address] documented as of this encounter Visit Diagnoses Not on filedocumented in this encounter Care Teams Raw Silk Grader Relationship Specialty Start Date End Date Giuseppe Kulkarni MD [address] [facility] [address] [place] [address] PCP - General FAMILY PRACTICE 06/09/19 10/14/21 Kaiden Marshall DO [address] [place] [address] PCP - General FAMILY PRACTICE 10/15/21 11/11/22 Kaiden Marshall DO [address] [place] [address] PCP - General FAMILY PRACTICE 11/12/22 Chintan Spears MD [address] [place] [phone] [place] Quarter Section Ironer CARDIOVASCULAR DISEASE 01/03/16 12/20/23 Angela Miramontes AGACNP-BC [address] [place] [address] NURSE PRACTITIONER 07/07/19 07/05/23 Cabrera Crouch MD [address] [address] CARDIOTHORACIC SURGERY 10/26/19 4 Teresa Morin APRN, K 12 SCHOOL PROFESSIONAL-C [address] [facility] [address] [address] NURSE PRACTITIONER 12/01/19 Ang Hudson MD [address] [address] Vascular/Quarter Section Ironer INTERNAL MEDICINE 01/05/20 Matteo Denise MD [address] [place] [address] Consulting Physician ORTHOPAEDIC SURGERY 07/06/23 Jonelle Deluna MD [address] [place] [address] COLON/RECTAL SURGERY 10/06/23 Houston Beaver MD [address] [place] [address] Consulting Physician INTERVENTIONAL CARDIOLOGY 05/25/24 Marciano Yeager MD [address] [place] [address] Consulting Physician INTERVENTIONAL CARDIOLOGY 11/02/24 documented as of this encounter
--- OUTSIDE RECORDS SUMMARY | 2024-12-07 08:52 | XMS_ITS | Encounter Summary ---
Author Organization [facility] Address [address] [place] [address] Care Team Providers Care Manufacturing Lab Technician Name Role Phone Rita Lee MD Primary Care Provider Chintan Martinez MD Unavailable [phone] Pérez Herr MD Primary Care Provider [phone] Giuseppe Kulkarni MD Primary Care Provider Angela Miramontes [facility] Unavailable [phone] Cabrera Crouch MD Unavailable [phone] Teresa Morin APRN, NP-C Unavailable [phone] Ang Hudson MD Unavailable Kaiden Marshall DO Primary Care Provider [phone] Kaiden Marshall DO Primary Care Provider [phone] Matteo Denise MD Unavailable [phone] Jonelle Deluna MD Unavailable [phone] Houston Beaver MD Unavailable [phone] Marciano Yeager MD Unavailable [phone] Encounter Details Date Type Department Care Team (Late st Contact Info) Description 04/29/2017 Abstract [facility] [address] [place] [address] Chintan Spears MD [address] [place] [address] Social History Tobacco Use Types Packs/Day Years Used Date Smoking Tobacco: Never Smokeless Tobacco: Never Alcohol Use Standard Drinks/Week Comments Yes 0 (1 standard drink = 0.6 oz pur e alcohol) Occasionally Sex and Gender Information Value Date Recorded Sex Assigned at Male 05/25/2024 9:04 AM GERIATRIC NURSE Legal Sex Male 9:59 PM CDT Gender [...] Appointment [facility] [address] [place] [address] Ang Hudson MD [address] [facility], [address] [place] [address] 06/02/2025 10:00 AM GERIATRIC NURSE Office [facility] eld [address] [place] [phone] Teresa Morin, CHECKERING MACHINE ADJUSTER, CAR SALESPERSON-C [address] [facility] [address] [place] [address] documented as of this encounter Visit Diagnoses Not on filedocumented in this encounter Additional Health Concerns Infection Onset Date Last Indicated Resolved Time COVID-19 Rule Out 11/19/2019 11/19/2019 11/20/2019 10:43 PM CDT COVID-19 Rule Out 12/24/2019 12/24/2019 12/25/2019 12:13 PM CDT COVID-19 Rule Out 07/31/2020 07/31/2020 08/01/2020 7:36 PM CDT documented as of this encounter Care Teams Manufacturing Lab Technician Relationship Specialty Start Date End Date Rita Lee MD PCP - General SURGERY 01/03/16 11/15/18 Pérez Herr MD [address] [place] [address] PCP - General FAMILY PRACTICE 11/16/18 06/08/19 Giuseppe Kulkarni MD [address] [facility] [address] [place] [address] PCP - General FAMILY PRACTICE 06/09/19 10/14/21 Kaiden Marshall DO [address] [place] [address] PCP - General FAMILY PRACTICE 10/15/21 11/11/22 Kaiden Marshall [place] [address] PCP - General FAMILY PRACTICE 11/12/22 Chintan Spears MD [address] [place] [address] [place] Office Clerk Routine CARDIOVASCULAR DISEASE 01/03/16 12/20/23 Angela Miramontes AGACNP-BC [address] [place] [address] NURSE PRACTITIONER 07/07/19 07/05/23 Cabrera Crouch MD [address] [place] [address] CARDIOTHORACIC SURGERY 10/26/19 4 Teresa Morin APRN, CAR SALESPERSON-C [address] [place] [address] [address] [place] [address] NURSE PRACTITIONER 12/01/19 Ang Hudson MD [address] [place] [address] [address] Vascular/Office Clerk Routine INTERNAL MEDICINE 01/05/20 Matteo Denise MD [address] [place] [address] Consulting Physician ORTHOPAEDIC SURGERY 07/06/23 Jonelle Deluna MD [address] [place] [address] COLON/RECTAL SURGERY 10/06/23 Houston Beaver MD [address] [place] [address] Consulting Physician INTERVENTIONAL CARDIOLOGY 05/25/24 Marciano Yeager MD [address] [place] [address] Consulting Physician INTERVENTIONAL CARDIOLOGY 11/02/24 documented as of this encounter
--- OUTSIDE RECORDS SUMMARY | 2024-12-07 08:52 | XMS_ITS | Encounter Summary ---
Author Organization [facility] Address [address] [place] [address] Care Team Providers Care Newspaper Managing Editor Name Role Phone Chintan Spears MD Unavailable [phone] Giuseppe Kulkarni MD Primary Care Provider Angela Miramontes [facility] Unavailable [phone] Cabrera Crouch MD Unavailable [phone] Teresa Morin APRN, ONSITE HEALTH COACH-C Unavailable Ang Hudson MD Unavailable Kaiden Marshall DO Primary Care Provider [phone] Kaiden Marshall DO Primary Care Provider [phone] Matteo Denise MD Unavailable [phone] Jonelle Deluna MD Unavailable [phone] Houston Beaver MD Unavailable [phone] Marciano Yeager MD Unavailable [phone] Encounter Details Date Type Department Care Team (Late st Contact Info) Description 08/09/2020 Abstract [facility] [place] [facility] [address] [place] [address] Chintan Spears MD [address] [place] [address] Social History Tobacco Use Types Packs/Day Years Used Date Smoking Tobacco: Never Smokeless Tobacco: Never Alcohol Use Standard Drinks/Week Comments Yes 0 (1 standard drink = 0.6 oz pur e alcohol) rarely Sex and Gender Information Value Date Recorded Sex Assigned at Male 05/25/2024 9:04 AM MORTGAGE ORIGINATOR Legal Sex Male 9:59 PM CDT Gender [...] CDT [facility]ointment [facility] [address] [place] [address] Ang Hudson MD [address] [facility] [address] [place] [address] 06/02/2025 10:00 AM MORTGAGE ORIGINATOR Office Visit [facility] [address] [place] [phone] Teresa Morin APRN, ONSITE HEALTH COACH-C [address] [facility] [address] [place] [address] documented as of this encounter Visit Diagnoses Not on filedocumented in this encounter Care Teams Newspaper Managing Editor Relationship Specialty Start Date End Date Giuseppe Kulkarni MD [address] [facility] [address] [place] [address] PCP - General FAMILY PRACTICE 06/09/19 10/14/21 Kaiden Marshall DO [address] [place] [address] PCP - General FAMILY PRACTICE 10/15/21 11/11/22 Kaiden Marshall DO [address] [place] [address] PCP - General FAMILY PRACTICE 11/12/22 Chintan Spears MD [address] [place] [address] [place] Rolling Chair Pusher CARDIOVASCULAR DISEASE 01/03/16 12/20/23 Angela Miramontes AGACNP-BC [address] [place] [address] NURSE PRACTITIONER 07/07/19 07/05/23 Cabrera Crouch MD [address] [address] CARDIOTHORACIC SURGERY 10/26/19 4 Teresa Morin APRN, ONSITE HEALTH COACH-C [address] [facility] [address] [address] NURSE PRACTITIONER 12/01/19 Ang Hudson MD [address] [address] Vascular/Rolling Chair Pusher INTERNAL MEDICINE 01/05/20 Matteo Denise MD [address] [place] [address] Consulting Physician ORTHOPAEDIC SURGERY 07/06/23 Jonelle Deluna MD [address] [place] [address] COLON/RECTAL SURGERY 10/06/23 Houston Beaver MD [address] [place] [address] Consulting Physician INTERVENTIONAL CARDIOLOGY 05/25/24 Marciano Yeager MD [address] [place] [address] Consulting Physician INTERVENTIONAL CARDIOLOGY 11/02/24 documented as of this encounter
--- OUTSIDE RECORDS SUMMARY | 2024-12-07 08:52 | XMS_ITS | Encounter Summary ---
Author Organization [facility] Address [address] [place] [address] Care Team Providers Care Desk Clerk Name Role Phone Rita Lee MD Primary Care Provider Chintan Martinez MD Unavailable [phone] Pérez Herr MD Primary Care Provider [phone] Giuseppe Kulkarni MD Primary Care Provider Angela Miramontes [facility] Unavailable [phone] Cabrera Crouch MD Unavailable [phone] Teresa Morin APRN, NP-C Unavailable [phone] Ang Hudson MD Unavailable Kaiden Marshall DO Primary Care Provider [phone] Kaiden Marshall DO Primary Care Provider [phone] Matteo Denise MD Unavailable [phone] Jonelle Deluna MD Unavailable [phone] Houston Beaver MD Unavailable [phone] Marciano Yeager MD Unavailable [phone] Encounter Details Date Type Department Care Team (Late st Contact Info) Description 07/25/2017 Abstract [facility] [address] [place], [place] [id number] , Generic ConversionMD Social History Tobacco Use Types Packs/Day Years Used Date Smoking Tobacco: Never Smokeless Tobacco: Never Alcohol Use Standard Drinks/Week Comments Yes 0 (1 standard drink = 0.6 oz pur e alcohol) Occasionally Sex and Gender Information Value Date Recorded Sex Assigned at Male 05/25/2024 9:04 AM [employer]N [employer] Legal Sex Male 9:59 PM CDT Gender Identity Not on file Sexual Orientation Not on file Occupation Industry Job Start Date Job End Date Retired Not on file Not on file Not on file documented as of this encounter Plan of Treatment Upcoming Encounters Date Type Department Care Team (Late st Contact Info) Description 12/30/2024 9:00 AM CDT Appointment [facility] [address] [place] [address] Ang Hudson MD [address] [facility] [address] [place] [address] 06/02/2025 10:00 AM INTERN RETAIL Office Visit [facility] [address] [place] [address] Teresa Morin, DIFFUSION FURNACE OPERATOR, TEST DESIGN ENGINEER-C [address] [facility] [address] [place] [address] documented as of this encounter Visit Diagnoses Not on filedocumented in this encounter Additional Health Concerns Infection Onset Date Last Indicated Resolved Time COVID-19 Rule Out 11/19/2019 11/19/2019 11/20/2019 10:43 PM CDT COVID-19 Rule Out 12/24/2019 12/24/2019 12/25/2019 12:13 PM CDT COVID-19 Rule Out 07/31/2020 07/31/2020 08/01/2020 7:36 PM CDT documented as of this encounter Care Teams Desk Clerk Relationship Specialty Start Date End Date Rita Lee MD PCP - General SURGERY 01/03/16 11/15/18 Pérez Herr MD [address] [place] [address] PCP - General FAMILY PRACTICE 11/16/18 06/08/19 Giuseppe Kulkarni MD [facility] [address] [place] [address] PCP - General FAMILY PRACTICE 06/09/19 10/14/21 Kaiden Marshall DO [address] [place] [address] PCP - General FAMILY PRACTICE 10/15/21 11/11/22 Kaiden Marshall DO [facility] [place] [address] PCP - General FAMILY PRACTICE 11/12/22 Chintan Spears MD [address] [place] [phone] [place] Property [employer] Assistant CARDIOVASCULAR DISEASE 01/03/16 12/20/23 [facility] [address] [place] [id number] NURSE PRACTITIONER 07/07/19 07/05/23 Cabrera Crouch MD [address] [place] [address] CARDIOTHORACIC SURGERY 10/26/19 Teresa Aldridge APRN, TEST DESIGN ENGINEER-C [address] [place] [address] [address] [place] [phone] NURSE PRACTITIONER 12/01/19 Ang Hudson MD [address] [place], [place] [address] [place] [address] Vascular/Property Management Assistant INTERNAL MEDICINE 01/05/20 Matteo Denise MD [address] [place] [address] Consulting Physician ORTHOPAEDIC SURGERY 07/06/23 Jonelle Deluna MD [address] [place] [address] COLON/RECTAL SURGERY 10/06/23 Houston Beaver MD [address] [place] [address] Consulting Physician INTERVENTIONAL CARDIOLOGY 05/25/24 Marciano Yeager MD [address] [place] [address] Consulting Physician INTERVENTIONAL CARDIOLOGY 11/02/24 documented as of this encounter
--- OUTSIDE RECORDS SUMMARY | 2024-12-07 08:53 | XMS_ITS | Clinical Summary ---
Author Organization [facility] Address [address] [place] [address] Care Team Providers Care Zyglo Inspector Name Role Phone Teresa Morin APRN, NP-C Unavailable Ang uHdson MD Unavailable Kaiden Marshall DO Primary Care Provider [phone] Matteo Denise MD Unavailable [phone] Jonelle Deluna MD Unavailable Houston Beaver MD Unavailable Bob Yeager MD Unavailable [phone] Allergies No known active allergies Medications atorvastatin 80 MG tabletIndicati ons:cholestero l Take 1 tablet (80 mg total) by mouth nightly at bedtime. Indications: cholesterol 06/13/19 12 Active fluticasone propionate 50 MCG/ACT nasal sprayIndicatio ns:nasal congestion 1 spray by Each Nostril route as needed for Allergies or Rhinitis. Indications: nasal congestion 08/10/19 20 Active apixaban 5 MG tablet Take 1 tablet (5 mg total) by mouth 2 (two) times daily. 60 tablet 08/08/19 20 Active metFORMIN ER 500 MG 24 hr tablet Take 1 tablet (500 mg total) by mouth daily. 07/10/19 21 Active famotidine (PEPCID) 40 MG tablet Take 1 tablet (40 mg total) by mouth daily. Active rOPINIRole (REQUIP) 1 MG tablet Take 1 tablet (1 mg total) by mouth 2 (two) times daily. 1mg at noon and 2mg at bedtime 06/25/19 23 Active Magnesium 500 MG Cap Take 1 [...] night 90 tablet 3 11/26/19 24 Active chlorthalidone (HYGROTEN) 25 MG tablet TAKE 1 TABLET (25 MG TOTAL) BY MOUTH DAILY. 90 tablet 2 06/02/19 25 Active irbesartan (AVAPRO) 300 MG tablet Take 0.5 tablets (150 mg total) by mouth 2 (two) times daily. 90 tablet 3 09/06/19 25 Active isosorbide mononitrate ER (IMDUR) 60 MG 24 hr tablet Take 1 tablet (60 mg total) by mouth daily. 90 tablet 3 09/21/19 25 Active loratadine (CLARITIN) 10 MG tablet Take 1 tablet (10 mg total) by mouth daily. Active amLODIPine (NORVASC) 2.5 MG tablet Take 1 tablet (2.5 mg total) by mouth 2 (two) times daily. 180 tablet 2 11/02/19 25 Active clopidogrel (PLAVIX) 75 MG tablet Take 1 tablet (75 mg total) by mouth daily. 90 tablet 3 11/17/19 25 026 Active loratadine 10 MG tablet Take 1 tablet (10 mg total) by mouth daily. 025 Discontinued docusate sodium (COLACE) 100 MG capsule Take 1 capsule (100 mg total) by mouth daily. 04/18/20 22 025 Discontinued diphenhydrAMIN E-APAP (TYLENOL PM) 25-500 MG Tab tablet Take 1 tablet by mouth nightly at bedtime. 025 Discontinued aspirin 81 MG chewable tablet Chew 1 tablet (81 mg total) by mouth daily. 025 Discontinued(S top Taking at Discharge) ketorolac (ACULAR) 0.5 % ophthalmic solution 09/15/19 025 Discontinued prednisoLONE acetate (PRED FORTE) 1 % ophthalmic suspension 09/14/19 025 Discontinued diphenhydrAMIN E-APAP (TYLENOL PM) 25-500 MG Tab tablet Take 1 tablet by mouth nightly at bedtime. 025 Discontinued ranolazine ER (RANEXA) 500 MG 12 hr tablet Take 1 tablet (500 mg total) by mouth 2 (two) times daily. 60 tablet 11 11/29/19 025 Discontinued Active Problems Problem Noted Date Diagnosed Date S/p bilateral carotid endarterectomy 10/05/2023 Coronary artery disease invo lving washoe coronary artery of washoe heart 05/02/2023 Iron deficiency anemia 05/12/2022 Ectopic atrial rhythm 01/11/2022 Premature ventricular contractions (PVCs) (VPCs) 01/11/2022 Nonsustained ventricular tachycardia ([facility]) 01/11/2022 AV block 01/11/2022 Carotid artery stenosis 11/14/2021 Longstanding persistent atri al fibrillation ([facility]) 11/04/2021 Symptomatic bradycardia 11/04/2021 On continuous oral anticoagulation 11/04/2021 Exercise intolerance 11/04/2021 Edema of left lower extremity 11/04/2021 Hx of CABG 11/04/2021 Dyspnea on exertion 11/04/2021 Chronic fatigue 11/04/2021 Hx pulmonary embolism 11/04/2021 Episodic lightheadedness 11/04/2021 Elevated PSA 04/20/2020 Overview (05/15/2020): Added automatically from request for surgery [id number] Leg edema 02/28/2020 History of DVT (deep vein thrombosis) 01/10/2020 Atrial fibrillation ([facility]) 11/10/2019 History of pulmonary embolus (PE) 07/26/2019 Acute pulmonary embolism ([facility]) 07/25 Carotid artery stenosis without cerebral infarct [...] mg/dL. Assessment & Plan (04/16/2021 3:05 PM PRINCIPAL PROGRAMMER): Gideon Thorpe remains stable with regard to [...] Mixed hyperlipidemia 01/07/2016 Type 2 diabetes mellitus ([facility]) 01/06 Pulmonary hypertension ([facility]) 016 Cor pulmonale ([facility]) 05/16/2015 SOB (shortness of breath) 11/21/2014 JOSE R (obstructive sleep apnea) 11/14/2014 DVT of lower extremity, bilateral ([facility]) Pulmonary embolism ([facility]) Resolved Problems Problem Noted Date Diagnosed Date Resolved Date Afib ([facility]) 01/07/202201/08 Coronary artery disease invo lving washoe coronary artery of washoe heart with unstable angina pectoris ([facility]) 01/07/2016 05/02/2023 Encounter for preventive health examination 10/31/2014 05/21/2020 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 08/12/2021 Encounters Date Type Department Care Team Description 12/05/2024 Telephone [facility] [address] [place] [address] Teresa Morin APRN, VETERINARY LABORATORY TECHNICIAN-C Follow Up Call 11/28/2024 11:00 AM CDT Office Visit [facility] [address] [place] [address] Teresa Morin APRN, VETERINARY LABORATORY TECHNICIAN-C Follow Up (Post PCI) 11/28/2024 Travel 11/28/2024 Orders Only [facility] [address] [place] [address] Bob Yeager MD 11/16/2024 Telephone [facility] [address] [place] [address] Teresa Morin APRN, VETERINARY LABORATORY TECHNICIAN-C Appointment Request 11/16/2024 MyChart Message Enc [facility] [address] [place] [address] Bob Yeager MD Follow Up Appointment 11/15/2024 9:01 AM CDT - 11/15/2024 3:04 PM CDT Hospital Encounter [facility] Worker Pre/Post [address] [place] [address] Bob Yeager MD Discharge Disposition: Home or Self Care (Routine Discharge) 11/15/2024 Travel 11/08/2024 6:32 AM CDT - 11/08/2024 11:59 PM CDT Hospital Encounter [facility] [address] [place] [address] Edelmira Alexandre FNP Discharge Disposition: Home or Self Care (Routine Discharge) 11/08/2024 6:30 AM CDT - 11/08/2024 6:31 AM CDT Hospital Encounter [facility] [address] [place] [address] Bob Yeager MD Discharge Disposition: Home or Self Care (Routine Discharge) 11/08/2024 MyChart Message Enc [facility] [address] [place] [address] [facility] Provider Lab Results 11/08/2024 Orders Only [facility] [address] [place] [address] Edelmira Alexandre FNP 11/08/2024 Travel 11/01/2024 Orders Only [facility] [address] [place] [address] Bob Yeager MD 10/28/2024 Prep for Procedure [facility] Maintenance Worker Pre/Post [address] [place] [address] Bob Yeager MD 10/28/2024 Telephone [facility] [address] [place] [address] Bob Yeager MD Schedule Procedure 10/28/2024 Telephone [facility] [address] [phone] Bob Yeager MD Schedule Procedure 10/27/2024 2:00 PM CDT Office Visit [place] [address] [phone] Bob Yeager MD Shortness Of Breath 10/27/2024 Telephone [place] [address] [phone] Teresa Morin APRN, GABRIELE-Yonny Appointment Reminder 10/27/2024 Travel 10/27/2024 Orders Only [place] [address] [phone] Bob Yeager MD 10/17/2024 Telephone [place] [address] [phone] Teresa Morin APRN, VETERINARY LABORATORY TECHNICIAN-C Appointment Request 10/06/2024 Results Follow-Up [place] [address] [place] [phone] Teresa Morin APRN, SHANIA USE ECHOCARDIOGRAM W CON 10/05/2024 8:49 AM CDT - 10/05/2024 11:59 PM CDT Hospital Encounter [facility] [address] [place] [address] Teresa Morin APRN, VETERINARY LABORATORY TECHNICIAN-C Discharge Disposition: Home or Self Care (Routine Discharge) 10/05/2024 Travel 09/20/2024 Telephone [place] [address] [place] [phone] Teresa Morin APRN, VETERINARY LABORATORY TECHNICIAN-Yonny Refill Request 09/15/2024 10:00 AM CDT Office Visit [place] [address] [place] [phone] Teresa Morin APRN, VETERINARY LABORATORY TECHNICIANSahara Consult (Preop evaluation prior to colonoscopy) 09/15/2024 Telephone [facility] [address] [place] [phone] Teresa Morin APRN, NP-C Information; Surgical Clearance 09/15/2024 Travel 09/15/2024 Orders Only [facility] [address] [place] [phone] Bob Yeager MD 09/09/2024 Telephone [facility] [address] [place] [phone] Radha Ellis NP Surgical Clearance 09/09/2024 Telephone [facility] [address] [place] [phone] Teresa Morin APRN, VETERINARY LABORATORY TECHNICIAN-C Pre-op Question(s) from Last 3 Months Immunizations Immunization Administration [...] Sex Assigned at Male 05/25/2024 9:04 AM PRINCIPAL PROGRAMMER Legal Sex Male 9:59 PM CDT Gender Identity Not on file Sexual Orientation Not on file Occupation Industry Job Start Date Job End Date Retired Not on file Not on file Not on file Last Filed Vital Signs Vital Sign Reading Time Taken Comments Blood Pressure 138/62 11/28/2024 10:45 AM CDT Pulse 72 11/28/2024 10:45 AM CDT Temperature 36.1 C (97 F) 11/15/2024 9:20 AM CDT Respiratory Rate 18 11/28/2024 10:45 AM CDT Oxygen Saturation 99% 11/28/2024 10:45 AM CDT Inhaled Oxygen Concentration - - Weight 98.4 kg (217 lb) 11/28/2024 10:45 AM CDT Height 177.8 cm (5' 10) 11/28/2024 10:45 AM CDT Body Mass Index 31.14 11/28/2024 10:45 AM CDT Plan of Treatment Upcoming Encounters Date Type Department Care Team (Late st Contact Info) Description 12/30/2024 9:[address] [facility] [address] [place] [address] Ang Hudson MD [address] [facility], [address] [place] [address] 06/02/2025 10:00 AM PRINCIPAL PROGRAMMER Office Visit [facility] [address] [place] [address] Teresa Morin, SURFACE PLATE INSPECTOR, VETERINARY LABORATORY TECHNICIAN-C [address] [facility] [address] [place] [address] Health Maintenance Due Date Last Done Comments ASCVD Statin 1950 Diabetes: Retinopathy Eye Exam 1966 Hepatitis C 1966 DTaP, Tdap and Td Vaccines (1 - Tdap) 12/19/1967 Zoster Vaccines (1 of 2) 1998 Annual Medicare Wellness Visit 2013 Pneumococcal Vaccine: 50+ Years (2 of 2 - PCV) 11/22/2020 11/23/2019, 10/18/2019, 1950 RSV Immunization or 60+ Years (1 - 1-dose 75+ series) 12/19/2023 COVID-19 Vaccine ( - season) 2024 02/19/2021, 07/06/2020, 06/15/2020 Lipid Panel 03/09/2025 03/09/2024, 12/09, 02/20/2021, Additional history exists Hemoglobin A1C 05/11/2025 11/08/2024, 02/10, 11/17/2023, Additional history exists Kidney Health Evaluation 11/08/2025 11/08/2024 AAA SCREENING Completed 09/20/2024, 09/08, 06/28/2024, Additional history exists Meningococcal B Vaccine Aged [...] Golden RN Medical Devices Implanted Type Area Child Care Associate Device Identifier Shelf Expiration Date Model / Serial / Lot Graft Patch Hemashield [place] 0.8cmx7.6cm - [id number] Implanted:Qty: 1 on 11/14/2021 by Cabrera Crouch MD at [facility] Graft Left: Carotid [employer] [id number] 06/10/2024 [id number] / [id number] Ashley Xact Carotid Stent- 0 Implanted:06/11 by John Zhang MD (Quantity not on file) Stent Carotid ASHLEY VASCULAR 04/09/2020 [id number] / / [id number] Cv Orsio Svg-Rca Stent- 0 Implanted:Qty: 1 on 11/23/2019 by Nicolás Serrano MD Stent Coronary BIOTRONIK 01/16/2021 [id number] / / [id number] Cv Orsio Svg-Rca Stent- 0 Implanted:11/08 by Nicolás Serrano MD (Quantity not on file) Stent Coronary BIOTRONIK 01/09/2021 [id number] / / [id number] Cv Synergy Chandana Svg-Rca Stent- 1 Implanted:Qty: 1 on 08/03/2020 by Skyler Ramirez MD Stent Coronary Zapa TAISHA 03/06/2022 [id number] / / [id number] Cv Xience Skypoint 3.5x28 Chandana Svg-Rca- 023 Implanted:Qty: 1 on 11/17/2022 by Cabrera Jacobs MD Stent ASHLEY VASCULAR 08/23/2023 [id number] 0- 28 / / [id number] [place] Synergy 4.0mm X 12mm Chandana Stents Prox Svg-Rca-11/16/19 25 Implanted:Qty: 2 on 11/15/2024 by Bob Yeager MD Stent Coronary Zapa TAISHA 03/15/2025 [id number] / / [id number] Graft Patch Hemashield [place] 0.8cmx7.6cm - [id number] Implanted:Qty: 1 on 06/22/2019 by Cabrera Crouch MD at [facility] Right: Neck [employer] 09/08/2023 [id number] / / [id number] Description:Sewn in graft wi th prolene. Explanted Type Area Child Care Associate Device Identifier Shelf Expiration Date Model / Serial / Lot Cv-Ivc Filter Explanted:Qty: 1 on 12/27/2019 by John Zhang MD Filter Inferior Vena Cava Description:IVC Filter Remov ed Procedures Procedure Name Priority Date/Time Associated Diagnosis Comments ELECTROCARDIOGRAM (NON MIDMARK ACQUIRED) Routine 11/28/2024 10:43 AM CDT Essential (primary) hypertension Coronary artery disease of washoe artery of washoe heart with stable angina pectoris Longstanding persistent atrial fibrillation ([facility]) Bilateral carotid artery stenosis Mixed hyperlipidemia POCT ACTIVATED CLOTTING TIME - ISTAT DOCKED DEVICE Routine 11/15/2024 11:54 AM CDT ALBUMIN URINE RANDOM W/CREATININE Routine 11/08/2024 7:11 AM CDT Type 2 diabetes mellitus without complications ([facility]) COMPREHENSIVE METABOLIC PANEL Routine 11/08/2024 7:09 AM CDT Type 2 diabetes mellitus without complications ([facility]) MAGNESIUM Routine 11/08/2024 7:09 AM CDT Type 2 diabetes mellitus without complications ([facility]) HEMOGLOBIN, GLYCOSYLATED Routine 025 7:09 AM CDT Type 2 diabetes mellitus without complications ([facility]) CBC, AUTO, NO DIFF Routine 11/08/2024 7: 09 AM CDT Essential (primary) hypertension ELECTROCARDIOGRAM (NON MIDMARK ACQUIRED) Routine 10/27/2024 1:41 PM CDT Essential (primary) hypertension USE ECHOCARDIOGRAM W CON Routine 025 9:43 AM CDT Coronary artery disease involving washoe coronary artery of washoe heart without angina pectoris Shortness of breath Essential (primary) hypertension ELECTROCARDIOGRAM (NON MIDMARK ACQUIRED) Routine 09/15/2024 10:00 AM CDT Pre-operative cardiovascular examination Coronary artery disease involving washoe coronary artery of washoe heart without angina pectoris Shortness of breath Longstanding persistent atrial fibrillation ([facility]) Bilateral carotid artery stenosis Essential (primary) hypertension Mixed hyperlipidemia LIPID PANEL Routine 03/09/2024 CTA ABD+PEL STAT 08/01/2019 8:46 PM CDT from Last 3 Months or Most Recently Relevant to Health Maintenance Results * ELECTROCARDIOGRAM (11/28/2024 10:43 AM CDT) Only the most recent of3 resultswithin the time period is included. 11/28/2024 10:4 3 AM [facility]T [facility] 12/01/[facility]24 5:20 PM CDT [facility] [place] [address] Test Date: 2024-11-28 Pat Name: GIDEON THORPE Department: 105 Room: Gender: Male Quality Assurance Specialist: : 1950 Requested By: BOB YEAGER Order Number: [id number] Reading MD: Bob Yeager Measurements Intervals [place] Rate: 76 P: 0 GA: 0 QRS: 32 QRSD: 114 T: 65 QT: 386 QTc: 434 Interpretive Statements ATRIAL FIBRILLATION LOW QRS VOLTAGE IN PRECORDIAL LEADS MODERATE INTRAVENTRICULAR CONDUCTION DELAY Procedure Note Bob Yeager MD - 12/01/2024 [facility], [facility] [address] [place] [address] Test Date: 2024-11-28 Pat Name: GIDEON THORPE Department: 105 Room: Gender: Male Quality Assurance Specialist: : 1950 Requested By: BOB YEAGER Order Number: [id number] Reading MD: Bob Yeager Measurements Intervals [place] Rate: 76 P: 0 GA: 0 QRS: 32 QRSD: 114 T: 65 QT: 386 QTc: 434 Interpretive Statements ATRIAL FIBRILLATION LOW QRS VOLTAGE IN PRECORDIAL LEADS MODERATE INTRAVENTRICULAR CONDUCTION DELAY us Bob Yeager MD PROCEDURES-ORDERABLE NO DORCAS RGE Final Result Performing Organization Address [facility] Co de Phone Number [facility] * (ABNORMAL) POCT ACTIVATED CLOTTING TIME - ISTAT DOCKED DEVICE (11/15/2024 11:54 AM CDT) ACTIVATED CLOTTING TIME (ACT HMT OR LMT) 383(H) 74 - 137 SEC 11/16/2024 6:49 AM CDT [facility] 11/15/2024 11:5 4 AM CDT Bob Yeager MD POCT ORDERABLES - DEVICE Fi nal Result Performing Organization Address [facility] Co de Phone Number [facility] [address] [place] [address], [place] [phone] * ALBUMIN CREATININE URINE RANDOM (11/08/2024 7:11 AM CDT) [facility] ALBUMIN (U) 1.8 MG/DL 11/08/2024 7:51 AM CDT [facility] Comment:REFERENCE RANGE NOT ESTABLISHED CREATININE RANDOM (U) 79.5 MG/DL 11/08/2024 7:51 AM CDT [facility] Comment:REFERENCE RANGE NOT ESTABLISHED ALBUMIN/CREAT RATIO 22.7 <30 MG/G 11/08/2024 7:51 AM CDT [facility] Comment: NORMAL TO MILDLY INCREASED ALBUMINURIA: <30 MG/G MODERATELY INCREASED ALBUMINURIA: 30 TO 300 MG/G SEVERELY INCREASED ALBUMINURIA: >300 MG/G PER KDIGO URINE SPECIMEN / Unknown 11/08/2024 7:11 AM CDT Edelmira Alexandre [facility] URINE ORDERABLES Final Result [facility] [address] [place] [address], [place] [phone] * (ABNORMAL) HEMOGLOBIN, GLYCOSYLATED (11/08/2024 7:09 AM CDT) [facility] HGB A1C 7.8(H) <5.7 % 11/08/2024 9:04 PM CDT [facility] ESTIMATED AVG GLUCOSE 177(H) 74 - 114 MG/DL 11/08/2024 9:04 PM CDT [facility] 11/08/2024 7:09 AM CDT Edelmira Alexandre [facility] Final Result [facility] [address] [place] [address], [place] [phone] * (ABNORMAL) COMPREHENSIVE METABOLIC PANEL (11/08/2024 7:09 AM CDT) [facility] SODIUM S/P/B 140 136 - 145 MMOL/L 11/08/2024 7:50 AM CDT [facility] POTASSIUM S/P/B 3.8 3.5 - 5.1 MMOL/L 11/08/2024 7:50 AM CDT [facility] CHLORIDE S/P/B 101 98 - 107 MMOL/L 11/08/2024 7:50 AM T [facility] CO2 30.1 21.0 - 32.0 MMOL/L 11/08/2024 7:50 AM T [facility] GLUCOSE 147(H) 70 - 99 MG/DL 11/08/2024 7:50 AM T [facility] Comment: FASTING GLUCOSE 100 TO 125 MG/DL IS CONSISTENT WITH IMPAIRED FASTING GLUCOSE. FASTING GLUCOSE >125 MG/DL IS CONSISTENT WITH DIABETES. RANDOM GLUCOSE >200 MG/DL WITH HYPERGLYCEMIC SYMPTOMS IS CONSISTENT WITH DIABETES. PER ADA GUIDELINES BUN 23 6 - 24 MG/DL 11/08/2024 7:50 AM [facility] CREATININE S/P/B 1.33(H) 0.70 - 1.30 MG/DL 11/08/2024 7:50 AM T [facility] CALCIUM S/P/B 9.5 8.4 - 10.5 MG/DL 11/08/2024 7:50 AM [facility] BILIRUBIN TOTAL S/P/B 0.8 0.2 - 1.0 MG/DL 11/08/2024 7:50 AM T [facility] Comment: THIS ASSAY IS NOT RECOMMENDED FOR PATIENTS UNDERGOING TREATMENT WITH ELTROMBOPAG DUE TO THE POTENTIAL FOR FALSELY ELEVATED RESULTS. ALKALINE PHOSPHATASE S/P/B 97 45 - 115 U/L 11/08/2024 7:50 AM T [facility] AST 11(L) 15 - 37 U/L 11/08/2024 7:50 AM T [facility] ALT 21 16 - 63 U/L 11/08/2024 7:50 AM T [facility] TOTAL PROTEIN S/P/B 7.1 6.4 - 8.2 G/DL 11/08/2024 7:50 AM CDT [facility] ALBUMIN S/P/B 3.8 3.4 - 5.0 G/DL 11/08/2024 7:50 AM CDT [facility] ANION GAP 8.9 5.0 - 15.0 MMOL/L 11/08/2024 7:50 AM CDT [facility] OSMOLALITY (CALC) 296 MOSM/KG 025 7:50 AM CDT [facility] Comment:REFERENCE RANGE NOT ESTABLISHED GFR ESTIMATE 56(L) >89 ML/MIN/1. 73 M2 11/08/2024 7:50 AM CDT [facility] GFR NOTES GFR REFERENCE S: 11/08/2024 7:50 AM CDT [facility] Comment: THE ESTIMATED GFR IS CALCULATED USING THE 2020 CKD-EPI EQUATION. THE FOLLOWING CATEGORIES FOR GRADING RENAL FUNCTION ARE RECOMMENDED BY THE INTERNATIONAL SOCIETY OF NEPHROLOGY (KDIGO 2012 CLINICAL PRACTICE GUIDELINE). G1,NORMAL OR HIGH: >89 ml/min/1.73 m2 G2,MILDLY DECREASED: 60-89 ml/min/1.73 m2 G3A,MILDLY TO MODERATELY DECREASED: 45-59 ml/min/1.73 m2 G3B,MODERATELY TO SEVERELY DECREASED: 30-44 ml/min/1.73 m2 G4,SEVERELY DECREASED: 15-29 ml/min/1.73 m2 G5,KIDNEY FAILURE: <15 ml/min/1.73 m2 11/08/2024 7:09 AM CDT Edelmira Alexandre [facility] Final Result [facility] [address] [place] [address], * (ABNORMAL) CBC, AUTO, NO DIFF (11/08/2024 7:09 AM CDT) WBC 6.98 4.00 - 10.80 x10'3/uL 11/08/2024 7:32 AM CDT [facility] RBC 4.98 4.50 - 6.10 x10'6/uL 11/08/2024 7:32 AM CDT [facility] HGB 14.4 13.0 - 18.0 G/DL 11/08/2024 7:32 AM CDT [facility] HCT 43.3 37.0 - 52.0 % 11/08/2024 7:32 AM CDT [facility] MCV 86.9 78.0 - 100.0 FL 11/08/2024 7:32 AM CDT [facility] MCH 28.9 27.0 - 31.0 PG 11/08/2024 7:32 AM CDT [facility] MCHC 33.3 33.0 - 36.0 G/DL 11/08/2024 7:32 AM CDT [facility] RDW 14.6(H) 11.5 - 14.5 % 11/08/2024 7:32 AM CDT [facility] PLT 177 150 - 350 x10'3/uL 11/08/2024 7:32 AM CDT [facility] MPV 9.7 7.4 - 10.4 FL 11/08/2024 7:32 AM CDT [facility] 11/08/2024 7:09 AM CDT us Bob Yeager MD LABORATORY Final Resul t Performing Organization Address [facility]/ZIP Co de Phone Number [address] [address], * (ABNORMAL) MAGNESIUM (11/08/2024 7:09 AM CDT) MAGNESIUM 1.6(L) 1.8 - 2.4 MG/DL 11/08/2024 7:50 AM CDT [facility] 11/08/2024 7:09 AM CDT Edelmira DELGADO [facility] Final Result Performing Organization Address [facility]/ZIP Co de Phone Number [facility] [address] [place] [phone], * USE ECHOCARDIOGRAM W CON (10/05/2024 9:43 AM CDT) Anatomical Region Laterality Modality NA Ultrasound 10/05/2024 8:54 AM CDT Narrative 10/05/2024 2:41 PM CDT Echocardiography Report Pat.Name: Gideon Thorpe Pat.ID: [id number] .Date: 10/05/2024 Refer.MD: Giulia, [facility] Exam Time: 8:54:00 AM Study Type:OUTREACH Height: 70 in Weight: 215 lb BSA: 2.15 m2 Age: 8 1950,73Y Sex: M Sonogrphr: Bon Pat. Stat.:Outpatient CPT - 4: C8929 Reason for Study:Coronary artery disease involving washoe coronary artery of washoe heart without angina pectoris, Shortness of breath, Essential (primary) hypertension Procedures: Study performed at [place], [place] and interpreted by [facility]. 2D, M-mode, Doppler, Color Flow, Myocardial contrast was used to enhance endocardial definition. ++++++++++++++++++++++++++++++++++++ SUMMARY: ++++++++++++++++++++++++++++++++++++ The left ventricular size is normal. Left ventricular function is normal. The ejection fraction is >55%. Diastolic filling is normal for age. Right ventricular systolic pressure is 30 mmHg. The left atrial size is moderately enlarged. Right atrial size is mildly enlarged. Inferior vena cava is normal. The aortic valve is trileaflet. The mitral valve is structurally normal. There is trace mitral regurgitation. Structurally normal tricuspid valve. ++++++++++++++++++++++++++++++++++++ FINDINGS: ++++++++++++++++++++++++++++++++++++ LV: The left ventricular size is normal. Left ventricular function is normal. The ejection fraction is >55%. Diastolic filling is normal for age. RV: The right ventricular size is normal. Right ventricular systolic function is normal. Right ventricular systolic pressure is 30 mmHg. LA: The left atrial size is moderately enlarged. RA: Right atrial size is mildly enlarged. ROSEMARY: No evidence of pericardial effusion. AO: Aorta is normal. PA: Estimated right atrial pressure of 3 mmHg. SVn: Inferior vena cava is normal. Inferior vena cava shows >50% collapse with respiration consistent with normal right atrial pressure. AV: The aortic valve is trileaflet. There is no aortic stenosis. There is no evidence of aortic regurgitation. MV: The mitral valve is structurally normal. There is trace mitral regurgitation. PV: Trace pulmonic regurgitation. Pulmonic valve not well visualized. TV: Structurally normal tricuspid valve. Mild tricuspid regurgitation. <Electronic Signature> 10/05/2024 02:41 PM Antony Andino M.D. Procedure Note Antony Andino MD - 10/05/2024 Echocardiography Report Pat.Name: Gideon Thorpe Pat.ID: [id number] .Date: 10/05/2024 Refer.MD: Giulia, [facility] Exam Time: 8:54:00 AM Study Type:[facility] Height: 70 in Weight: 215 lb BSA: 2.15 m2 Age: 8 1950,73Y Sex: M Sonogrphr: Pat. Stat.:Outpatient CPT - 4: C8929 Reason for Study:Coronary artery disease involving washoe coronary artery of washoe heart without angina pectoris, Shortness of breath, Essential (primary) hypertension Procedures: Study performed at [place], [place] and interpreted by [facility]. 2D, M-mode, Doppler, Color Flow, Myocardial contrast was used to enhance endocardial definition. ++++++++++++++++++++++++++++++++++++ SUMMARY: ++++++++++++++++++++++++++++++++++++ The left ventricular size is normal. Left ventricular function is normal. The ejection fraction is >55%. Diastolic filling is normal for age. Right ventricular systolic pressure is 30 mmHg. The left atrial size is moderately enlarged. Right atrial size is mildly enlarged. Inferior vena cava is normal. The aortic valve is trileaflet. The mitral valve is structurally normal. There is trace mitral regurgitation. Structurally normal tricuspid valve. ++++++++++++++++++++++++++++++++++++ FINDINGS: ++++++++++++++++++++++++++++++++++++ LV: The left ventricular size is normal. Left ventricular function is normal. The ejection fraction is >55%. Diastolic filling is normal for age. RV: The right ventricular size is normal. Right ventricular systolic function is normal. Right ventricular systolic pressure is 30 mmHg. LA: The left atrial size is moderately enlarged. RA: Right atrial size is mildly enlarged. ROSEMARY: No evidence of pericardial effusion. AO: Aorta is normal. PA: Estimated right atrial pressure of 3 mmHg. SVn: Inferior vena cava is normal. Inferior vena cava shows >50% collapse with respiration consistent with normal right atrial pressure. AV: The aortic valve is trileaflet. There is no aortic stenosis. There is no evidence of aortic regurgitation. MV: The mitral valve is structurally normal. There is trace mitral regurgitation. PV: Trace pulmonic regurgitation. Pulmonic valve not well visualized. TV: Structurally normal tricuspid valve. Mild tricuspid regurgitation. <Electronic Signature> 10/05/2024 02:41 PM Antony Andino M.D. us BROOKE De Jesus APRNC ECHO Final Result * LIPID PANEL (03/09/2024) CHOLESTEROL 140 TRIGLYCERIDES 106 HDL 54 LDL (CALCULATED) 65 Narrative Resulting Agency Comment [facility] us Default History Genericprovider LABORATORY Final Result from Last 3 Months or Most Recently Relevant to Health Maintenance Insurance AETNA Advance Directives * Full Code (Latest Code Status on File) Date Activated Date Inactivated Comments 11/15/2024 1:32 PM 11/15/2024 5:04 PM * Full Code Date Activated Date Inactivated Comments 01/10/2022 1:59 PM 01/11/2022 1:57 PM * Full Code Date Activated Date Inactivated Comments 01/07/2022 3:29 PM 01/10/2022 1:59 PM * Full Code Date Activated Date Inactivated Comments 11/14/2021 10:11 AM 11/15/2021 4:41 PM * Full Code Date Activated Date Inactivated Comments 10/11/2021 3:58 PM 10/11/2021 6:01 PM Care Teams Zyglo Inspector Relationship Specialty Start Date End Date Kaiden Marshall DO [address] [place] [address] PCP - General FAMILY PRACTICE 11/12/22 Teresa Morin APRN, VETERINARY LABORATORY TECHNICIAN-C [address] [address] NURSE PRACTITIONER 12/01/19 Ang Hudson MD [address] [place] [address] Vascular/Sexual Assault Response Coordinator INTERNAL MEDICINE 01/05/20 Matteo Denise MD [address] [place] [address] Consulting Physician ORTHOPAEDIC SURGERY 07/06/23 Jonelle Deluna MD [address] [place] [address] COLON/RECTAL SURGERY 10/06/23 Houston Beaver MD [address] [place] [address] Consulting Physician INTERVENTIONAL CARDIOLOGY 05/25/24 Bob Yeager MD [address] [place] [address] Consulting Physician INTERVENTIONAL CARDIOLOGY 11/02/24
--- OUTSIDE RECORDS SUMMARY | 2024-12-07 08:53 | XMS_ITS | Clinical Summary ---
Author Organization [facility] Address [address] [place] [address] Phone Care Team Providers Care Vocal Music Teacher Name Role Phone Karly Pat MD Unavailable Kaiden Marshall MD Primary Care Provider [phone] Allergies No known active allergies Medications amLODIPine [...] Active fluticasone (FLONASE) 50 MCG/ACT Suspension 1 [place] by Nasal route nightly. Use in each [...] 177.8 cm (5' 10) 05/26/2023 9:24 AM SANITATION ASSOCIATE Body Mass Index 30.28 05/26/2023 9:24 AM SANITATION ASSOCIATE Plan of Treatment Upcoming Encounters Date Type Department Care Team (Late st Contact Info) Description 02/21/2025 10:00 AM CDT Office Visit [facility] - [place] [address] [place] [address] Karly Pat MD [address] [address] Health Maintenance Due Date Last [...] - 1-dose 75+ series) 12/19/2023 SARS-COV-2 Immunization ( - 2023- season) 2024 02/19/2021, 07/06/2020, 06/15/2020 Influenza Immunization (#1) 2025 10/0 09/2020, 02/11/2021, 02/28/2020 Human Papillomavirus (HPV) Immunization Aged Out No longer eligible b ased on patient's age to complete this topic Meningococcal Immunization (ACWY) Aged Out No longer eligible b ased on patient's age to complete this topic Rotavirus Immunization Aged Out No lo nger eligible based on patient's age to complete this topic Insurance MEDICARE C AETNA Care Teams Vocal Music Teacher Relationship Specialty Start Date End Date Kaiden Marshall MD [address] [place] [address] PCP - General Family Medicine 02/20/22 Karly Pat MD [address] [address] Consulting Physician Endocrinology 02/11/22
--- OUTSIDE RECORDS SUMMARY | 2024-12-07 08:54 | XMS_ITS | Encounter Summary ---
Author Organization [facility] Address [address] [place] [address] Care Team Providers Care Claim Review Medical Director Name Role Phone Chintan Spears MD Unavailable [phone] Pérez Herr MD Primary Care Provider [phone] Giuseppe Kulkarni MD Primary Care Provider Angela Miramontes [facility] Unavailable [phone] Cabrera Crouch MD Unavailable [phone] Teresa Morin APRN, CONTINUOUS DRIER HELPER-C Unavailable [phone] Ang Hudson MD Unavailable Kaiden Marshall DO Primary Care Provider [phone] Kaiden Marshall DO Primary Care Provider [phone] Matteo Denise MD Unavailable [phone] Jonelle Deluna MD Unavailable [phone] Houston Beaver MD Unavailable [phone] Marciano Yeager MD Unavailable [phone] Encounter Details Date Type Department Care Team (Late st Contact Info) Description 02/15/2019 MyChart Message Enc [facility] [address] [place] [address] Gene [facility] Provider Visit Follow Up Social History Tobacco Use Types Packs/Day Years Used Date Smoking Tobacco: Never Smokeless Tobacco: Never Alcohol Use Standard Drinks/Week Comments Yes 0 (1 standard drink = 0.6 oz pur e alcohol) Occasionally Sex and Gender Information Value Date Recorded Sex Assigned at Male 05/25/2024 9:04 AM MACHINE SIGN WRITER Legal Sex Male 9:59 PM CDT Gender Identity Not on file Sexual Orientation Not on file Occupation Industry Job Start Date Job End Date Retired Not on file Not on file Not on file documented as of this encounter Plan of Treatment Upcoming Encounters Date Type Department Care Team (Late st Contact Info) Description 12/30/2024 9:00 AM CDT Appointment [facility] [address] [place] [address] Ang Hudson MD [address] [facility] [address] [place], [place] [address] 06/02/2025 10:00 AM MACHINE SIGN WRITER Office Visit [facility] [address] [place] [address] Teresa Morin APRN, CONTINUOUS DRIER HELPER-C [address] [facility] [address] [place] [address] documented as of this encounter Visit Diagnoses Not on filedocumented in this encounter Additional Health Concerns Infection Onset Date Last Indicated Resolved Time COVID-19 Rule Out 11/19/2019 11/19/2019 11/20/2019 10:43 PM CDT COVID-19 Rule Out 12/24/2019 12/24/2019 12/25/2019 12:13 PM CDT COVID-19 Rule Out 07/31/2020 07/31/2020 08/01/2020 7:36 PM CDT documented as of this encounter Care Teams Claim Review Medical Director Relationship Specialty Start Date End Date Pérez Herr MD [address] [place] [address] PCP - General FAMILY PRACTICE 11/16/18 06/08/19 Giuseppe Kulkarni MD [address] [facility] [address] [place] [address] PCP - General FAMILY PRACTICE 06/09/19 10/14/21 Kaiden Marshall DO [address] [place] [address] PCP - General FAMILY PRACTICE 10/15/21 11/11/22 Kaiden Marshall DO [address] [place] [address] PCP - General FAMILY PRACTICE 11/12/22 Chintan Spears MD [address] [place] [address] [place] Manager Of Quality CARDIOVASCULAR DISEASE 01/03/16 12/20/23 Angela Miramontes AGACNP- [address] [address] NURSE PRACTITIONER 07/07/19 07/05/23 Cabrera Crouch MD [address] [address] CARDIOTHORACIC SURGERY 10/26/19 4 Teresa Morin, CONSERVATION AGENT, CONTINUOUS DRIER HELPER-C [address] [address] NURSE PRACTITIONER 12/01/19 Ang Hudson MD [address] [phone] Vascular/Manager Of Quality INTERNAL MEDICINE 01/05/20 Matteo Denise MD [facility] [place], [place] [address] Consulting Physician ORTHOPAEDIC SURGERY 07/06/23 Jonelle Deluna MD 1 [place] [address] COLON/RECTAL SURGERY 10/06/23 Houston Beaver MD 1 [place] [address] Consulting Physician INTERVENTIONAL CARDIOLOGY 05/25/24 Marciano Yeager MD [address] [place] [address] Consulting Physician INTERVENTIONAL CARDIOLOGY 11/02/24 documented as of this encounter
--- OUTSIDE RECORDS SUMMARY | 2024-12-07 08:54 | XMS_ITS | Encounter Summary ---
Author Organization [facility] Address [address] [place] [address] Care Team Providers Care Mailing Machine Operator Name Role Phone Teresa Morin APRN, NP-C Unavailable [phone] Ang Hudson MD Unavailable Kaiden Marshall DO Primary Care Provider [phone] Matteo Denise MD Unavailable [phone] Jonelle Deluna MD Unavailable [phone] Houston Beaver MD Unavailable [phone] Marciano Yeager MD Unavailable [phone] Encounter Details Date Type Department Care Team (Late st Contact Info) Description 11/08/2024 [facility] [address] [place] [phone] [facility] Results Social History Tobacco Use Types Packs/Day Years Used Date Smoking Tobacco: Never Smokeless Tobacco: Never Alcohol Use Standard Drinks/Week Comments Yes 0 (1 standard drink = 0.6 oz pur e alcohol) rarely Sex and Gender Information Value Date Recorded Sex Assigned at Male 05/25/2024 9:04 AM AIRPLANE PATROL PILOT Legal Sex Male 9:59 PM CDT Gender [...] Date Author Status No 07/13/2023 7:48 AM Takn Eng RN Active documented in this encounter Plan of Treatment Upcoming Encounters Date Type Department Care Team (Late st Contact Info) Description 12/30/2024 9:00 AM CDT Appointment [facility] [address] [place] [address] Ang Hudson MD [address] [place] [address], [address] [place] [address] 06/02/2025 10:00 AM AIRPLANE PATROL PILOT [facility] [address] [place] [address] Teresa Morin, HEALTH PHYSICIST, PLASTER FORM MAKER-C [address] [facility] [address] [place] [address] documented as of this encounter Goals Goal [...] on filedocumented in this encounter Care Teams Mailing Machine Operator Relationship Specialty Start Date End Date Kaiden Marshall DO [address] [place], [place] [phone] PCP - General FAMILY PRACTICE 11/12/22 Teresa Morin, HEALTH PHYSICIST, PLASTER FORM MAKER-C [address] [place] [address] NURSE PRACTITIONER 12/01/19 Ang Hudson MD [address] [place] [address] Vascular/Publicity Writer INTERNAL MEDICINE 01/05/20 Matteo Denise MD [address] [place] [address] Consulting Physician ORTHOPAEDIC SURGERY 07/06/23 Jonelle Deluna MD [address] [place] [address] COLON/RECTAL SURGERY 10/06/23 Houston Beaver MD [address] [place] [address] Consulting Physician INTERVENTIONAL CARDIOLOGY 05/25/24 Marciano Yeager MD [address] [place] [address] Consulting Physician INTERVENTIONAL CARDIOLOGY 11/02/24 documented as of this encounter
--- OUTSIDE RECORDS SUMMARY | 2024-12-07 08:54 | XMS_ITS | Encounter Summary ---
Author Organization [facility] Address [address] [place] [address] Care Team Providers Care Chart Collector Name Role Phone Chintan Spears MD Unavailable [phone] Angela Miramontes Unavailable [phone] Cabrera Crouch MD Unavailable [phone] Teresa Morin APRN, NP-C Unavailable Ang Hudson MD Unavailable Kaiden Marshall DO Primary Care Provider [phone] Kaiden Marshall DO Primary Care Provider [phone] Matteo Denise MD Unavailable [phone] Jonelle Deluna MD Unavailable [phone] Houston Beaver MD Unavailable [phone] Marciano Yeager MD Unavailable [phone] Encounter Details Date Type Department Care Team (Late st Contact Info) Description 01/15/2022 Hospital Follow-up Call [facility] Unit [address] [place] [address] Lola Barillas, RN Social History Tobacco Use Types Packs/Day Years Used Date Smoking Tobacco: Never Smokeless Tobacco: Never Alcohol Use Standard Drinks/Week Comments Yes 0 (1 standard drink = 0.6 oz pur e alcohol) rarely Sex and Gender Information Value Date Recorded Sex Assigned at Male 05/25/2024 9:04 AM TOWER HAND Legal Sex Male 9:59 PM CDT Gender [...] Info) Description 12/30/2024 9:00 AM CDT Appointment [facility] [address] [place] [address] Ang Hudson MD [address] [facility], [address] [place] [address] 06/02/2025 10:00 AM TOWER HAND Office Visit [facility] el [address] [place] [address] Teresa Morin APRN, CROZER-C [address] [facility] [address] [place] [address] documented as of this encounter Goals Goal [...] on filedocumented in this encounter Care Teams Chart Collector Relationship Specialty Start Date End Date Kaiden Marshall DO [address] [place] [address] PCP - General FAMILY PRACTICE 10/15/21 11/11/22 Kaiden Marshall DO [address] [place] [address] PCP - General FAMILY PRACTICE 11/12/22 Chintan Spears MD [address] [place] [address] [place] Equipment Maintenance Supervisor CARDIOVASCULAR DISEASE 01/03/16 12/20/23 Angela Miramontes AGACNP-BC [address] [address] NURSE PRACTITIONER 07/07/19 07/05/23 Cabrera Crouch MD [address] [address] CARDIOTHORACIC SURGERY 10/26/19 4 Teresa Morin APRN, CROZER-C [address] [facility] [address] [phone] NURSE PRACTITIONER 12/01/19 Ang Hudson MD [address] [facility] [address] [place] [address] Vascular/Canal Equipment Maintenance Supervisor INTERNAL MEDICINE 01/05/20 [place] [address] [place] [address] Consulting Physician ORTHOPAEDIC SURGERY 07/06/23 Jonelle Deluna MD [address] [place] [address] COLON/RECTAL SURGERY 10/06/23 Houston Beaver MD [address] [place] [address] Consulting Physician INTERVENTIONAL CARDIOLOGY 05/25/24 Marciano Yeager MD [address] [place], [place] [address] Consulting Physician INTERVENTIONAL CARDIOLOGY 11/02/24 documented as of this encounter
--- OUTSIDE RECORDS SUMMARY | 2024-12-07 08:54 | XMS_ITS | Encounter Summary ---
Author Organization [facility] Address [address] [place] [address] Care Team Providers Care Scheduling Coordinator Name Role Phone Chintan Spears MD Unavailable [phone] Angela Miramontes- Unavailable [phone] Cabrera Crouch MD Unavailable [phone] Teresa Morin APRN, NP-C Unavailable Ang Hudson MD Unavailable Kaiden Marshall DO Primary Care Provider Matteo Denise MD Unavailable [phone] Jonelle Deluna MD Unavailable [phone] Houston Beaver MD Unavailable [phone] Marciano Yeager MD Unavailable [phone] Encounter Details Date Type Department Care Team (Late st Contact Info) Description 12/29/2022 [facility] [address] [place] [address] Chintan Spears MD [address] [place] [address] Social History Tobacco Use Types Packs/Day Years Used Date Smoking Tobacco: Never Smokeless Tobacco: Never Tobacco Cessation:Counseling Given: Not Answered Alcohol Use Standard Drinks/Week Comments Yes 0 (1 standard drink = 0.6 oz pur e alcohol) rarely Sex and Gender Information Value Date Recorded Sex Assigned at Male 05/25/2024 9:04 AM MANGANESE BREAKER Legal Sex Male 9:59 PM CDT Gender [...] Info) Description 12/30/2024 9:00 AM CDT Appointment [facility] [address] [place] [address] Ang Hudson MD [address] [facility], [address] [place] [address] 06/02/2025 10:00 AM MANGANESE BREAKER [facility] [address] [place] [address] Teresa Morin APRN, STOCK DIGGER-C [address] [phone] documented as of this encounter Goals Goal [...] on filedocumented in this encounter Care Teams Scheduling Coordinator Relationship Specialty Start Date End Date Kaiden Marshall DO [address] [place] [address] PCP - General FAMILY PRACTICE 11/12/22 Chintan Spears MD [address] [place] [address] [place] Coin Machine Service Repairer CARDIOVASCULAR DISEASE 01/03/16 12/20/[address] [facility] [address] [address] NURSE PRACTITIONER 07/07/19 07/05/23 Cabrera Crouch MD [address] [address] CARDIOTHORACIC SURGERY 10/26/19 4 Teresa Morin APRN, STOCK DIGGER-C [address] [address] NURSE PRACTITIONER 12/01/19 Ang Hudson MD [address] [place] [address] Vascular/Coin Machine Service Repairer INTERNAL MEDICINE 01/05/20 Matteo Denise MD [address] [place] [address] Consulting Physician ORTHOPAEDIC SURGERY 07/06/23 Jonelle Deluna MD 1 [place] [address] COLON/RECTAL SURGERY 10/06/23 Houston Beaver MD [address] [place] [address] Consulting Physician INTERVENTIONAL CARDIOLOGY 05/25/24 Marciano Yeager MD [address] [place] [address] Consulting Physician INTERVENTIONAL CARDIOLOGY 11/02/24 documented as of this encounter
--- OUTSIDE RECORDS SUMMARY | 2024-12-07 08:54 | XMS_ITS | Encounter Summary ---
Author Organization [facility] Address [address] [place] [address] Care Team Providers Care Machine Spring Former Name Role Phone Chintan Spears MD Unavailable [phone] Angela Miramontes Unavailable [phone] Cabrera Crouch MD Unavailable [phone] Teresa Morin APRN, NP-C Unavailable Ang Hudson MD Unavailable Kaiden Marshall DO Primary Care Provider [phone] Kaiden Marshall DO Primary Care Provider [phone] Matteo Denise MD Unavailable [phone] Jonelle Deluna MD Unavailable [phone] Houston Beaver MD Unavailable [phone] Marciano Yeager MD Unavailable [phone] Encounter Details Date Type Department Care Team (Late st Contact Info) Description 05/01/2022 Abstract [facility] [address] [place] [address] Chintan Spears MD [address] [place] [address] Social History Tobacco Use Types Packs/Day Years Used Date Smoking Tobacco: Never Smokeless Tobacco: Never Alcohol Use Standard Drinks/Week Comments Yes 0 (1 standard drink = 0.6 oz pur e alcohol) rarely Sex and Gender Information Value Date Recorded Sex Assigned at Male 05/25/2024 9:04 AM COMPUTER ENGINEERING TECHNICIAN Legal Sex Male 9:59 PM CDT Gender [...] Coronavirus/COVID-19? No / Unsure 04/28/2022 12:10 PM COMPUTER ENGINEERING TECHNICIAN documented as of this encounter Functional Status [...] Date Author Status No 01/07/2022 3:00 PM CARENT Branden Victor RN Active documented in this encounter Plan of Treatment Upcoming Encounters Date Type Department Care Team (Late st Contact Info) Description 12/30/2024 9:00 AM CDT Appointment [facility] [address] [place] [address] Ang Hudson MD [address] [facility], [place], [address] [place] [address] 06/02/2025 10:00 AM COMPUTER ENGINEERING TECHNICIAN Office Visit [facility]d [address] [place] [address] Teresa Morin, DATA ENTRY, IMMUNOLOGY TEACHER-C [address] [facility] [address] [place] [address] documented as of this encounter Goals Goal Patient Goal Type Associated Problems Recent Progress Patient-Stated? Author Safety Patient/family will have appropriate support at home upon discharge General No Mikaela Jiang, RN Patient will return to prior living situation and remain independent in ADLs upon discharge from hospital Lifestyle Nelida Golden RN documented as of this encounter Procedures Procedure Name Priority Date/Time Associated Diagnosis Comments HEMOGLOBIN AND HEMATOCRIT Routine 04/29/2022 3:49 PM COMPUTER ENGINEERING TECHNICIAN HEMOGLOBIN AND HEMATOCRIT Routine 04/29/2022 12:25 PM COMPUTER ENGINEERING TECHNICIAN HEMOGLOBIN AND HEMATOCRIT Routine 04/29/2022 8:15 AM COMPUTER ENGINEERING TECHNICIAN documented in this encounter Results * HEMOGLOBIN AND HEMATOCRIT (04/29/2022 3:49 PM COMPUTER ENGINEERING TECHNICIAN) HGB 8.6 12.4 - 15.3 HCT 27.7 37.0 - 46.0 04/29/2022 3:49 PM COMPUTER ENGINEERING TECHNICIAN us Default History Genericprovider LABORATORY Final Result * HEMOGLOBIN AND HEMATOCRIT (04/29/2022 12:25 PM COMPUTER ENGINEERING TECHNICIAN) HGB 7.3 12.4 - 15.3 HCT 25.0 37.0 - 46.0 04/29/2022 12:2 5 PM COMPUTER ENGINEERING TECHNICIAN us Default History Genericprovider LABORATORY Final Result * HEMOGLOBIN AND HEMATOCRIT (04/29/2022 8:15 AM COMPUTER ENGINEERING TECHNICIAN) HGB 6.2 12.4 - 15.3 HCT 21.2 37.0 - 46.0 04/29/2022 8:15 AM COMPUTER ENGINEERING TECHNICIAN us Default History Genericprovider LABORATORY Final Result documented in this encounter Visit Diagnoses Not on filedocumented in this encounter Care Teams Machine Spring Former Relationship Specialty Start Date End Date Kaiden Marshall DO [address] [place] [address] PCP - General FAMILY PRACTICE 10/15/21 11/11/22 Kaiden Marshall DO [address] [place] [address] PCP - General FAMILY PRACTICE 11/12/22 Chintan Spears MD [address] [place] [address] [facility] [facility] CARDIOVASCULAR DISEASE 01/03/16 12/20/23 Angela Miramontes AGACNP-BC [address] [address] NURSE PRACTITIONER 07/07/19 07/05/23 Cabrera Crouch MD [address] [address] CARDIOTHORACIC SURGERY 10/26/19 4 Teresa Morin APRN, IMMUNOLOGY TEACHER-C [address] [facility] [address] [place] [address] NURSE PRACTITIONER 12/01/19 Ang Hudson MD [address] [facility] [address] [place] [address] Vascular/Ortho Tech INTERNAL MEDICINE 01/05/20 Matteo Denise MD [address] [place] [address] Consulting Physician ORTHOPAEDIC SURGERY 07/06/23 Jonelle Deluna MD [address] [place] [address] COLON/RECTAL SURGERY 10/06/23 Houston Beaevr MD [address] [place] [address] Consulting Physician INTERVENTIONAL CARDIOLOGY 05/25/24 Marciano Yeager MD [address] [place] [address] Consulting Physician INTERVENTIONAL CARDIOLOGY 11/02/24 documented as of this encounter
--- OUTSIDE RECORDS SUMMARY | 2024-12-07 08:54 | XMS_ITS | Encounter Summary ---
Author Organization [facility] Address [address] [place] [address] Care Team Providers Care Zipper Lining Folder Name Role Phone Chintan Spears MD Unavailable [phone] Angela Miramontes- Unavailable [phone] Cabrera Crouch MD Unavailable [phone] Teresa Morin APRN, NP-C Unavailable Ang Hudson MD Unavailable Kaiden Marshall DO Primary Care Provider [phone] Kaiden Marshall DO Primary Care Provider [phone] Matteo Denise MD Unavailable [phone] Jonelle Deluna MD Unavailable [phone] Houston Beaver MD Unavailable [phone] Marciano Yeager MD Unavailable [phone] Encounter Details Date Type Department Care Team (Late st Contact Info) Description 02/20/2022 Hospital Orders Only [place] Pre/Post [address] [address] Chintan Spears MD [address] [place] [address] Social History Tobacco Use Types Packs/Day Years Used Date Smoking Tobacco: Never Smokeless Tobacco: Never Alcohol Use Standard Drinks/Week Comments Yes 0 (1 standard drink = 0.6 oz pur e alcohol) rarely Sex and Gender Information Value Date Recorded Sex Assigned at Male 05/25/2024 9:04 AM SLOT KEY PERSON Legal Sex Male 9:59 PM CDT Gender [...] Author Status No 01/07/2022 3:00 PM CDT Acti ve * RETIRED Are you blind or do [...] Appointment [facility] [address] [place] [address] Ang Hudson MD [address] [facility], [address] [place] [address] 06/02/2025 10:00 AM SLOT KEY PERSON Office Visit [facility] [address] [place] [address] Teresa Morin, OTOLARYNGOLOGY TEACHER, IC DESIGNER CUSTOM-C [address] [facility] [address] [place] [address] documented as of this encounter [...] on filedocumented in this encounter Care Teams Zipper Lining Folder Relationship Specialty Start Date End Date Kaiden Marshall DO [address] [place] [address] PCP - General FAMILY PRACTICE 10/15/21 11/11/22 Kaiden Marshall DO [address] [place] [address] PCP - General FAMILY PRACTICE 11/12/22 Chintan Spears MD [address] [place] [address] [place] [facility] CARDIOVASCULAR DISEASE 01/03/16 12/20/23 Angela Miramontes AGACNP-BC [address] [address] NURSE PRACTITIONER 07/07/19 07/05/23 Cabrera Crouch MD [address] [address] CARDIOTHORACIC SURGERY 10/26/19 4 Teresa Morin APRN, IC DESIGNER CUSTOM-C [address] [facility] [address] [place] [address] NURSE PRACTITIONER 12/01/19 Ang Hudson MD [address] [facility] [address] [place] [address] Vascular/[employer]able [facility] INTERNAL MEDICINE 01/05/20 [place] [address] [place] [address] Consulting Physician ORTHOPAEDIC SURGERY 07/06/23 Jonelle Deluna MD 1 [place] [address] COLON/RECTAL SURGERY 10/06/23 Houston Beaver MD 1 [place] [address] Consulting Physician INTERVENTIONAL CARDIOLOGY 05/25/24 Marciano Yeager MD [address] [place] [address] Consulting Physician INTERVENTIONAL CARDIOLOGY 11/02/24 documented as of this encounter
--- OUTSIDE RECORDS SUMMARY | 2024-12-07 08:54 | XMS_ITS | Encounter Summary ---
Author Organization [facility] Address [address] [place] [address] Care Team Providers Care Environmental Field Team Member Name Role Phone Rita Lee MD Primary Care Provider Chintan Martinez MD Unavailable [phone] Pérez Herr MD Primary Care Provider [phone] Giuseppe Kulkarni MD Primary Care Provider Angela Miramontes [facility] Unavailable [phone] Cabrera Crouch MD Unavailable [phone] Teresa Morin APRN, NP-C Unavailable [phone] Ang Hudson MD Unavailable Kaiden Marshall DO Primary Care Provider [phone] Kaiden Marshall DO Primary Care Provider [phone] Matteo Denise MD Unavailable [phone] Jonelle Deluna MD Unavailable [phone] Houston Beaver MD Unavailable [phone] Marciano Yeager MD Unavailable [phone] Encounter Details Date Type Department Care Team (Late st Contact Info) Description 10/19/2014 Abstract [facility] [address] [place] [address] Chintan Spears MD [address] [place] [address] Social History Tobacco Use Types Packs/Day Years Used Date Smoking Tobacco: Never Alcohol Use Standard Drinks/Week Comments Yes 0 (1 standard drink = 0.6 oz pur e alcohol) Occasionally Sex and Gender Information Value Date Recorded Sex Assigned at Male 05/25/2024 9:04 AM BROADCAST METEOROLOGIST Legal Sex Male 9:59 PM CDT Gender Identity Not on file Sexual Orientation Not on file Occupation Industry Job Start Date Job End Date Retired Not on file Not on file Not on file documented as of this encounter Plan of Treatment Upcoming Encounters Date Type Department Care Team (Late st Contact Info) Description 12/30/2024 9:00 AM CDT Appointment [facility] [address] [place] [address] Ang Hudson MD [address] [facility] [place], [address] [place], [place] [address] 06/02/2025 10:00 AM BROADCAST METEOROLOGIST [facility] [address] [place] [address] Teresa Morin APRN, DEPARTMENT OF MATHEMATICS CHAIR-C [address] [facility] [address] [place] [address] documented as of this encounter Visit Diagnoses Not on filedocumented in this encounter Additional Health Concerns Infection Onset Date Last Indicated Resolved Time COVID-19 Rule Out 11/19/2019 11/19/2019 11/20/2019 10:43 PM CDT COVID-19 Rule Out 12/24/2019 12/24/2019 12/25/2019 12:13 PM CDT COVID-19 Rule Out 07/31/2020 07/31/2020 08/01/2020 7:36 PM CDT documented as of this encounter Care Teams Environmental Field Team Member Relationship Specialty Start Date End Date Rita Lee MD PCP - General SURGERY 01/03/16 11/15/18 Préez Herr MD [address] [place] [address] PCP - General FAMILY PRACTICE 11/16/18 06/08/19 Giuseppe Kulkarni MD [address] [facility] [address] [place] [address] PCP - General FAMILY PRACTICE 06/09/19 10/14/21 Kaiden Marshall DO [address] [place] [address] PCP - General FAMILY PRACTICE 10/15/21 11/11/22 Kaiden Marshall DO [address] [place] [address] PCP - General FAMILY PRACTICE 11/12/22 Chintan Spears MD [address] [place] [address] [place] [employer] CARDIOVASCULAR DISEASE 01/03/16 12/20/23 Angela Miramontes AGACNP-BC [address] [place] [address] NURSE PRACTITIONER 07/07/19 07/05/23 Cabrera Crouch MD [address] [address] CARDIOTHORACIC SURGERY 10/26/19 4 Teresa Morni APRN, DEPARTMENT OF MATHEMATICS CHAIR-C 9 [facility] [address] [place] [address] NURSE PRACTITIONER 12/01/19 Ang Hudson MD [address] [place] [address] Vascular/Coffee Sampler INTERNAL MEDICINE 01/05/20 Matteo Denise MD [address] [place] [address] Consulting Physician ORTHOPAEDIC SURGERY 07/06/23 Jonelle Deluna MD [address] [place] [address] COLON/RECTAL SURGERY 10/06/23 Houston Beaver MD [address] [place] [address] Consulting Physician INTERVENTIONAL CARDIOLOGY 05/25/24 Marciano Yeager MD [address] [place] [address] Consulting Physician INTERVENTIONAL CARDIOLOGY 11/02/24 documented as of this encounter
--- OUTSIDE RECORDS SUMMARY | 2024-12-07 08:54 | XMS_ITS | Encounter Summary ---
Author Organization [facility] Address [address] [place] [address] Care Team Providers Care Studio Technician Name Role Phone Teresa Morin APRN, NP-C Unavailable Ang Hudson MD Unavailable Kaiden Marshall DO Primary Care Provider [phone] Matteo Denise MD Unavailable [phone] Jonelle Deluna MD Unavailable [phone] Houston Beaver MD Unavailable [phone] Marciano Yeager MD Unavailable [phone] Encounter Details Date Type Department Care Team (Late st Contact Info) Description 10/28/2024 Prep for Procedure [facility] Pre/Post [address] [place] [address] Marciano Yeager MD [address] [place] [address] Social History Tobacco Use Types Packs/Day Years Used Date Smoking Tobacco: Never Smokeless Tobacco: Never Alcohol Use Standard Drinks/Week Comments Yes 0 (1 standard drink = 0.6 oz pur e alcohol) rarely Sex and Gender Information Value Date Recorded Sex Assigned at Male 05/25/2024 9:04 AM NURSE PRACTITIONER Legal Sex Male 9:59 PM CDT Gender [...] Info) Description 12/30/2024 9:00 AM CDT Appointment [facility] [address] [facility] [place] [address] Ang Hudson MD [address] [facility], [address] [place] [address] 06/02/2025 10:00 AM NURSE PRACTITIONER Office Visit [facility] eld [address] [place] [address] Teresa Morin, CAREER DEVELOPMENT FACILITATOR, CHARTER PILOT-C [address] [facility] [address] [place] [address] documented as of this encounter [...] on filedocumented in this encounter Care Teams Studio Technician Relationship Specialty Start Date End Date Kaiden Marshall DO [address] [place] [address] PCP - General FAMILY PRACTICE 11/12/22 Teresa Morin APRN, CHARTER PILOT-C [address] [address] NURSE PRACTITIONER 12/01/19 Ang Hudson MD [address] [address] Vascular/Telephone Solicitor Supervisor INTERNAL MEDICINE 01/05/20 Matteo Denise MD [address] [place] [address] Consulting Physician ORTHOPAEDIC SURGERY 07/06/23 Jonelle Deluna MD 1 [place] [address] COLON/RECTAL SURGERY 10/06/23 Houston Beaver MD 1 [place] [address] Consulting Physician INTERVENTIONAL CARDIOLOGY 05/25/24 Marciano Yeager MD [address] [place] [address] Consulting Physician INTERVENTIONAL CARDIOLOGY 11/02/24 documented as of this encounter
--- OUTSIDE RECORDS SUMMARY | 2024-12-07 08:54 | XMS_ITS | Encounter Summary ---
Author Organization [facility] Address [address] [place] [address] Care Team Providers Care Field Administrative Assistant Name Role Phone Chintan Spears MD Unavailable [phone] Angela Miramontes Unavailable [phone] Cabrera Crouch MD Unavailable [phone] Teresa Morin APRN, NP-C Unavailable Ang Hudson MD Unavailable Kaiden Marshall DO Primary Care Provider [phone] Kaiden Marshall DO Primary Care Provider [phone] Matteo Denise MD Unavailable [phone] Jonelle Deluna MD Unavailable Houston Beaver MD Unavailable [phone] Marciano Yeager MD Unavailable [phone] Encounter Details Date Type Department Care Team (Late st Contact Info) Description 03/03/2022 Abstract [facility] [address] [place] [address] Chintan Spears MD [address] [place] [address] Social History Tobacco Use Types Packs/Day Years Used Date Smoking Tobacco: Never Smokeless Tobacco: Never Alcohol Use Standard Drinks/Week Comments Yes 0 (1 standard drink = 0.6 oz pur e alcohol) rarely Sex and Gender Information Value Date Recorded Sex Assigned at Male 05/25/2024 9:04 AM EYEGLASS LENS GENERATOR Legal Sex Male 9:59 PM CDT Gender [...] CDT [facility]ointment [facility] [address] [place] [address] Ang Hudson MD [address] [facility], [address] [place] [address] 06/02/2025 10:00 AM EYEGLASS LENS GENERATOR Office Visit [facility] [address] [place] [address] Teresa Morin, ALLY, OIL SEPARATOR-C [address] [facility] [address] [place] [address] documented as of this encounter [...] on filedocumented in this encounter Care Teams Field Administrative Assistant Relationship Specialty Start Date End Date Kaiden Marshall DO [address] [place] [address] PCP - General FAMILY PRACTICE 10/15/21 11/11/22 Kaiden Marshall DO [address] [place] [address] PCP - General FAMILY PRACTICE 11/12/22 Chintan Spears MD [address] [place] [address] [place] Paper Conservator CARDIOVASCULAR DISEASE 01/03/16 12/20/23 Angela Miramontes AGACNP- [address] [address] NURSE PRACTITIONER 07/07/19 07/05/23 Cabrera Crouch MD [address] [address] CARDIOTHORACIC SURGERY 10/26/19 4 Teresa Morin APRN, OIL SEPARATOR-C [address] [facility] [address] [place] [address] NURSE PRACTITIONER 12/01/19 Ang Hudson MD [address] [facility] [address] [place] [address] Vascular/Paper Conservator INTERNAL MEDICINE 01/05/20 [place] [address] [place] [address] Consulting Physician ORTHOPAEDIC SURGERY 07/06/23 Jonelle Deluna MD [address] [place] [address] COLON/RECTAL SURGERY 10/06/23 Houston Beaver MD [address] [place] [address] Consulting Physician INTERVENTIONAL CARDIOLOGY 05/25/24 Marciano Yeager MD [address] [place] [address] Consulting Physician INTERVENTIONAL CARDIOLOGY 11/02/24 documented as of this encounter
--- OUTSIDE RECORDS SUMMARY | 2024-12-07 08:54 | XMS_ITS | Encounter Summary ---
Author Organization [facility] Address [address] [place] [address] Care Team Providers Care Installer Helper Name Role Phone Teresa Morin APRN, NP-C Unavailable Ang Hudson MD Unavailable Kaiden Marshall DO Primary Care Provider [phone] Matteo Denise MD Unavailable [phone] Jonelle Deluna MD Unavailable Houston Beaver MD Unavailable Marciano Yeager MD Unavailable [phone] Encounter Details Date Type Department Care Team (Late st Contact Info) Description 11/16/2024 [employer] Message Enc [facility] [address] [place] [address] Marciano Yeager MD [address] [place] [address] Follow Up Appointment Social History Tobacco Use Types Packs/Day Years Used Date Smoking Tobacco: Never Smokeless Tobacco: Never Alcohol Use Standard Drinks/Week Comments Yes 0 (1 standard drink = 0.6 oz pur e alcohol) rarely Sex and Gender Information Value Date Recorded Sex Assigned at Male 05/25/2024 9:04 AM CARDING MACHINE FEEDER Legal Sex Male 9:59 PM CDT [...] Assessment Author Status No 07/13/2023 7:48 AM Becca Eng RN Active * Do you have [...] Info) Description 12/30/2024 9:00 AM CDT Appointment [facility] [address] [facility] [place] [address] Ang Hudson MD [address] [facility], [address] [place] [address] 06/02/2025 10:00 AM CARDING MACHINE FEEDER Office Visit [facility]d [address] [place] [address] Teresa Morin, COAL FEEDER OPERATOR, MACHINE CLEANER-C [address] [facility] [address] [place] [address] documented as of this encounter [...] on filedocumented in this encounter Care Teams Installer Helper Relationship Specialty Start Date End Date Kaiden Marshall DO [address] [place] [address] PCP - General FAMILY PRACTICE 11/12/22 Teresa Morin APRN, MACHINE CLEANER-C [address] [address] NURSE PRACTITIONER 12/01/19 Ang Hudson MD [address] [address] Vascular/Instrument And Control Service Person INTERNAL MEDICINE 01/05/20 Matteo Denise MD [address] [place] [address] Consulting Physician ORTHOPAEDIC SURGERY 07/06/23 Jonelle Deluna MD [address] [place] [address] COLON/RECTAL SURGERY 10/06/23 Houston Beaver MD 1 [place] [address] Consulting Physician INTERVENTIONAL CARDIOLOGY 05/25/24 Marciano Yeager MD [address] [place] [address] Consulting Physician INTERVENTIONAL CARDIOLOGY 11/02/24 documented as of this encounter
--- NOTE | 2024-12-21 10:59 | P.PCNPFT_ITS ---
PFT Procedure Performed PFT Procedure Performed Spirometry with Pre/Post Bronchodilator Plethysmography (Lung Vol) Diffusing Cap (DLCO) Flow Vol Loop PFT Interpretation DOS: 12/07/2024 REQUESTING: Kaiden Marshall DO REASON FOR TESTING: Shortness of breath PULMONARY FUNCTION TESTS Results are reliable and reproducible. Repeatability of spirometry FEV1 maneuver pre and post bronchodilator is Grade A. Grassflat: Collin Cotton Dust reference equations were used. Spirometry: The pre-bronchodilator FEV1 is 3.07 L, 104%. The pre-bronchodilator FVC is 4.22 L, 110%. The FEV1/FVC ratio is 73%. After bronchodilator, the FEV1 is 3.18 L, 108%, +4%. After bronchodilator, the FVC is 4.09 L, 107%, -3%. The FEV1/FVC ratio is 79%. These are normal values with no significant response to bronchodilator. Lung volumes: The total lung capacity is 8.67 L, 137%. The residual volume is 3.59 L, 139%. The RV/TLC is 41%, normal. FRC is increased, 6.06 L, 181%. The slow vital capacity is 5.08 L, 133%, which is larger than the forced vital capacity measured in spirometry, 4.22 L, 110%. This is consistent with dynamic airflow obstruction. Airway resistance is normal. Diffusion: DLCO is 18.8, 84%. The DLCO/VA is 3.60, 104%. Flow volume loop: The flow volume loop shows a normal expiratory pattern. There is no coving. The inspiratory loop closes early, a non-specific finding. IMPRESSION: Normal spirometry, increased slow vital capacity and functional residual capacity suggestive of obstruction, and normal diffusion. No response to bronchodilator. Lack of response to bronchodilator should not preclude use if clinically indicated. No prior studies for comparison. Addie Glass MD
== END 2024-12-07 08:41 | disposition home or self-care (01) ==
LOC: CHSCARD 08:43
PROVIDERS: PCP Family Medicine; Visit Provider Family Medicine
DX: R42 Dizziness and giddiness (principal); I25.10 Atherosclerotic heart disease of native coronary artery without angina pectoris
CPT/HCPCS: 94060; 94726; 94729

== ENCOUNTER 2025-01-23 10:14 | Day surgery (SDC) | payer MEDICARE, SELFPAY ==
[2025-01-17 10:58] VITALS: BMI 30.9
--- NOTE | ~2025-01-23 | XR_ITS ---
XR fluoroscopy no charge Indication:Articular branch block of left hip TECHNIQUE: Fluoroscopy used during Articular branch block of left hip performed by [Keny Alejo MD] on 01/23/2025. 29 seconds of fluoroscopy with 5 fluoroscopic images captured. FINDINGS: Correlate with procedure note. IMPRESSION: Fluoroscopy used during Articular branch block of left hip. Reviewed, dictated and finalized at location O.
[2025-01-23 11:04] VITALS: BP 121/50; PULSE 78; RESP 16; TEMP 36.8; O2SAT 99
--- NOTE | 2025-01-23 11:18 | WPDHPUPDATE1 ---
History and Physical Update Update Date/Time: 01/23/25 11:18 History and Physical has been reviewed, including an updated exam of the patient. There are NO changes in the patient's condition. Risks, benefits, and alternatives have been discussed and questions answered. Patient agrees to proceed with procedure.
--- NOTE | 2025-01-23 11:19 | P.OP_ITS ---
Procedure Note - Detailed Date of Procedure 01/23/25 Pre-op Diagnosis OA of bilateral hips, arthralgia left hip Post-op Diagnosis Same Procedure Performed Left Prognostic Femoral Articular and Obturator Articular Branch Blocks under Fluoroscopic Guidance with Contrast Control. Surgeon Keny Alejo MD Anesthesia Local Description of Procedure INFORMED CONSENT: Risks, benefits and alternatives to the procedure were discussed in detail with the patient who expressed explicit understanding and co nsent to proceed. Patient was informed verbally and in written form regarding the risks associated with the procedure including the low risk of serious infection, bleeding/bruising, allergic reaction, nerve injury, paralysis, procedural site pain or discomfort, worsening pain and/or mobility, failure to treat and disfigurement. The patient expressed explicit understanding and consent to proceed. All materials required for the procedure were available prior to procedure start. Site and side was marked prior to procedure and confirmed in the presence of the patient. PROCEDURE IN DETAIL: The patient was brought to the procedural suite and placed in the supine position. Patient was made comfortable with use of pillows under the head/shoulder, knees and ankles. Skin overlying anterior and anterolateral surface of the pelvis and thigh at the level of inguinal crease was prepared broadly with ChloraPrep applicator and draped in a sterile manner. Aseptic technique was used throughout. The hip joint of interest was identified in the AP projection and view aligned with the plane of the ipsilateral obturator foramen. Location and course of the femoral artery, vein and accompanying nerve was identified by palpation of the arterial pulse and marked with a sterile skin marker. Local anesthesia was established by infiltration with approximately 3 mL of 0.5% lidocaine via a 1-1/2 inch 27- gauge needle. A 22-gauge 5-inch quincke spinal needle was intermittently advanced in the lateral and superior direction in the AP view (avoiding the course of the femoral vessels) until the needle tip contacted the anterior surface of the medial wall of the obturator foramen. Needle was advanced superiorly until positioned just inferior to the ischial isthmus at the location of the left obturator articular branches. After negative aspiration for blood, CSF or bodily fluid, 0.5 ml of Omnipaque 300 contrast medium was injected demonstrating lack of intra-articular, intravascular dye pattern. After repeat negative aspiration, 0.5ml of 0.5% PF Bupivacaine was injected to effectively block the targeted peripheral nerve. Previously injected contrast was diluted by local anesthetic confirming appropriate spread. No parasthesias elicited. Patient tolerated well. Attention was then turned to the completion of the femoral articular branch block. In the AP projection, a site inferior and lateral to the ipsilateral ASIS was anesthetized by local infiltration with approximately 3 mL of 0.5% lidocaine via a 1-1/2 inch 27-gauge needle. A 22-gauge 5-inch quincke spinal needle was intermittently advanced in medial to lateral direction in the AP view until the needle tip contacted the anterior surface of the superior portion of the acetabulum 5mm superior to the intra-articular space at a point bisecting the femoral head, the approximate location of the left femoral articular branches. After negative aspiration for blood, CSF or bodily fluid, 0.5 ml of the same contrast medium was injected demonstrating lack of intra-articular, intravascular dye pattern. After repeat negative aspiration, 0.5ml of the same local anesthetic mixture was injected to effectively block the targeted peripheral nerve. Previously injected contrast was diluted by local anesthetic confirming appropriate spread. No parasthesias elicited. Patient tolerated the procedure well. Images were saved and documented in the patient chart. Patient's skin was cleansed and sterile bandage applied. The patient tolerated the procedure well. The patient was transported to the recovery area in stable condition where they were observed for an appropriate amount of time prior to discharge, without evidence of complication. Patient was instructed on the completion of a pain diary prior to discharge and instructed to bring this diary with them to their next follow up evaluation. The patient was instructed to avoid excessive activity for the next 48 hours, including frequent use of stairs. They are to monitor for fevers, chills, night sweats, erythema/swelling at the site or any other signs of infection, bleeding/bruising as well as new pain, weakness or numbness in the upper extremity. Should they notice these changes, they are instructed to call our office or report immediately to the nearest Emergency Department if no answer or if after posted office hours. CONTRAST WASTED: 29 ml Omnipaque 300 Complications No immediate complications Condition Stable Disposition Same day [facility] Billing Surgery - Charge Forward: Surgery Billing
--- OUTSIDE RECORDS SUMMARY | 2025-01-23 11:34 | XMS_ITS | Encounter Summary ---
Author Organization [facility] Healthcare Address [facility] [place] [address] Care Team Providers Care Custom Feed Mill Operator Name Role Phone Giuseppe Kulkarni MD Primary Care Provider Timbo Cardoso MD Unavailable Mike Ledezma MD PhD Unavailable [phone] Esdras Conway MD Unavailable [phone] Kaiden Marshall DO Primary Care Provider Edelmira Alexandre NP Unavailable [phone] Jonelle Deluna MD Unavailable [phone] Gilmer Menezes MD Unavailable [phone] Danielle Marroquin SEED SPECIALIST Unavailable [phone] Encounter Details Date Type Department Care Team (Late st Contact Info) Description 07/04/2020 Telephone [facility] [address] [place] [phone] Jonelle Benitez, RT Social History Tobacco Use Types Packs/Day Years Used Date Smoking Tobacco: Never Smokeless Tobacco: Never Alcohol Use Standard Drinks/Week Comments Yes 0 (1 standard drink = 0.6 oz pur e alcohol) very rare wine Sex and Gender Information Value Date Recorded Sex Assigned at Not on file Legal Sex Male 3:59 PM HEMATOLOGY SPECIALIST Gender Identity Male 01/29/2021 1:19 PM CDT Sexual Orientation Not on file documented as of this encounter Plan of Treatment Not on file documented as of this encounter Visit Diagnoses Not on filedocumented in this encounter Care Teams Custom Feed Mill Operator Relationship Specialty Start Date End Date Giuseppe Kulkarni MD PCP - General Family Medicine 03/20/20 10/09/21 Kaiden Marshall DO [address] [place] [address] PCP - General Family Medicine 10/10/21 Timbo Cardoso MD Consulting Physician Neurology 10/18/20 Mike Ledezma MD PhD [address] [place] [address] Radiation Oncologist Radiation Oncology 02/21/21 Esdras Conway MD [address] [place] [id number] Referring Physician Urology 02/21/21 04/20/24 Edelmira Alexandre NP [address] [place] [address] Registered Nurse Family Medicine 09/08/23 Jonelle Deluna MD [address] [facility] [phone] [place] [address] Surgeon Colon and Rectal Surgery 09/29/23 Gilmer Menezes MD [address] [facility] [phone] [place] [address] Medical Oncologist/Electric Trucker Medical Oncology 11/24/23 12/21/24 Danielle Marroquin NP [address] [place] [address] [phone] Nurse Practitioner Medical Oncology 12/26/24 documented as of this encounter
--- OUTSIDE RECORDS SUMMARY | 2025-01-23 11:34 | XMS_ITS | Clinical Summary ---
Author Organization [facility] Address [address] [place] [address] Care Team Providers Care Ginner Helper Name Role Phone Timbo Cardoso MD Unavailable Mike Ledezma MD PhD Unavailable [phone] Kaiden Marshall DO Primary Care Provider Edelmira Alexandre NP Unavailable [phone] Jonelle Deluna MD Unavailable Danielle Marroquin NP Unavailable + [phone] Allergies No known active allergies Medications amLODIPine [...] tablet 1 tablet (10 mg total) Active isosorbide mononitrate ER (IMDUR) 60 mg 24 hr tablet Take 1 tablet (60 mg total) by mouth daily 12/17/19 24 Active fluticasone propionate (FLONASE) 50 mcg/actuation nasal spray ADMINISTER 1 SPRAY INTO EACH NOSTRIL DAILY NEEDED FOR RHINITIS OR ALLERGIES. 16 mL 1 08/16/19 25 Active clopidogreL (PLAVIX) 75 mg tablet 11/09/19 25 Active aspirin 81 mg chewable tablet Take 1 tablet (81 mg total) by mouth daily 025 Discontin ued(Thera py completed ) olopatadine (PATANOL) 0.1 % ophthalmic solutionIndication s:Allergic Conjunctivitis Administer 1 drop into both eyes 2 (two) times a day 5 mL 2 01/27/20 24 025 Discontin ued(Thera py completed ) prochlorperazine (Compazine) 10 mg tabletIndications: Malignant neoplasm of colon, unspecified part of colon (HCC) Take 1 tablet (10 mg total) by mouth every 6 (six) hours as needed for nausea or vomiting 30 tablet 3 04/19/20 24 025 Discontin ued(Thera py completed ) sodium, potassium & mag sulfates (Suprep Bowel Prep Kit) 17.5-3.13-1.6 gram recon solnIndications:Dillan wel Evacuation Drink first half of prep at 6:00 pm the night before procedure. Drink second half of prep 4 hours prior to leaving home for procedure. 354 mL 10/18/19 25 025 Discontin ued(Thera py completed ) sodium, potassium & mag sulfates (Suprep Bowel Prep Kit) 17.5-3.13-1.6 gram recon solnIndications:Dillan wel Evacuation Drink first half of prep at 6:00 pm the night before procedure. Drink second half of prep 4 hours prior to leaving home for procedure. 354 mL 11/01/19 25 025 Discontin ued(Thera py completed ) Active Problems Problem Noted Date Diagnosed Date DVT of lower extremity, bilateral 03/07/2024 Iron deficiency anemia due to chronic blood loss 01/13/2024 Anemia 01/12/2024 Colon cancer 11/02/2023 Acute postoperative abdominal pain 11/02/2023 Coronary artery disease invo lving [place] coronary artery of [place] heart 05/02/2023 Iron deficiency anemia 05/12/2022 AV [...] (08/15/2020): Added automatically from request for surgery [id number] Assessment & Plan (02/12/2022 11:29 AM CDT): [...] (07/12/2020): Added automatically from request for surgery [id number] Rising PSA following treatme nt for malignant neoplasm of prostate 04/20/2020 Overview (04/20/2020): Added automatically from request for surgery [id number] Elevated PSA 04/20/2020 Overview (03/07/2024): Added automatically from request for surgery [id number] Edema of left lower extremity 02/28/2020 History [...] Encounters Date Type Department Care Team Description 01/05/2025 9:30 AM CDT Office Visit [facility] Radiation Oncology [address] [place] [address] Mike Ledezma MD PhD Prostate cancer (HCC) (Primary Dx) 12/29/2024 12:06 PM CDT - 12/29/2024 11:59 PM CDT [facility] [address] [place] [address] Prostate cancer (HCC) Discharge Disposition: Discharge to home or self care 12/29/2024 10:20 AM CDT Office Visit [facility] [address] [facility] [address] [place] [id number] Danielle Marroquin NP Malignant neoplasm of colon, unspecified part of colon (HCC) (Primary Dx); Anemia, unspecified type; Prostate cancer (HCC); Iron deficiency anemia due to chronic blood loss 12/29/2024 9:45 AM CDT Clinical Support [facility] [address] [place] [address] Malignant neoplasm of colon, unspecified part of colon (HCC) 12/20/2024 9:13 AM CDT - 12/20/2024 11:59 PM CDT [facility] [address] [place] [address] Malignant neoplasm of colon, unspecified part of colon (HCC) Discharge Disposition: Discharge to home or self care 12/09/2024 Telephone [facility] Radiation Oncology [address] [place] [phone] Rosmery Cannon RN 12/06/2024 Telephone [facility] Radiation Oncology [address] [place] [address] Emily Lind, AUTOMATIC PRESSER from Last 3 Months Surgical History Surgery Date Site/Laterality Comments CAROTID ENARTERECTOMYY 06/11/2019 - 07/09/2019 right (pt reports left is approx 70% blocked-monitoring) CARDIAC STENT PLACEMENT 11/09/2019 - 12/09/2019 Dr. 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 Gender Identity Male 01/29/2021 1:19 PM CDT Sexual Orientation Not on file Obstetrics History Last Filed Vital Signs Vital Sign Reading Time Taken Comments Blood Pressure 150/69 01/05/2025 9:18 AM CDT Pulse 79 01/05/2025 9:18 AM CDT Temperature 36.4 C (97.5 F) 01/05/2025 9:18 AM CDT Respiratory Rate 20 01/05/2025 9:18 AM CDT Oxygen Saturation 100% 01/05/2025 9:18 AM CDT Inhaled Oxygen Concentration - - Weight 97.1 kg (214 lb) 01/05/2025 9:18 AM CDT Height 174 cm (5' 8.5) 04/19/2024 10:48 AM CHILD'S NURSE Body Mass Index 32.07 04/19/2024 10:48 AM CHILD'S NURSE Plan of Treatment Health Maintenance Due Date Last Done Comments Albumin Creatinine Ratio, Urine 1948 Depression Screening 1948 Hemoglobin A1C 1948 Hepatitis C Screening 1948 Dilated Eye Exam 1948 Foot Exam 1948 Hepatitis B Screening 1966 Zoster Vaccine (1 of 2) 1998 Well Visit 65+ 2013 Covid-19 Vaccine (2024-2 6 season) 2025 01/27/2023, 02/19/2021, 07/06/2020, Additional history exists Influenza Vaccine (#1) 2025 , 02/11/2021, 02/28/2020 Lipid Panel 03/09/2025 03/09/2024, 12/09, 06/14/2019 Fall Risk Assessment 03/14/2025 03/14/2024, 07/24/2022, 03/26/2021 eGFR 12/29/2025 12/29/2024, 09/09, 07/05/2024, Additional history exists DTaP/Tdap/Td Vaccine (2 - Td or Tdap) 09/30/2028 09/30/2018 Pneumococcal vaccine 65+ Completed 020, 10/18/2019, 09/30/2018 Colon Cancer Screening-Colonoscopy Discontinued 09/16/2024 Medical Devices Implanted Type Area Respiratory Medicine Physician Device Identifier Shelf Expiration Date Model / Serial / Lot Stents Implanted:Qty: 11 Bilateral: Heart Description:2004,2008,2009,2 014,2015,2019,2020 Stents and bypass 1993 [employer] Xcela Power Port 8fr [id number] - [id number] Implanted:Qty: 1 on 12/28/2023 at [facility] [employer] 06/20/2028 [id number] / / [id number] Explanted Type Area Respiratory Medicine Physician Device Identifier Shelf Expiration Date Model / Serial / Lot [employer] Eloy 180-223 Contour 6fr 26cm Large Inner Lumen Low Profile Bladder Melvin Taper Latex Free - [id number] Implanted:Qty: 1 on 09/13/2020 by Esdras Conway MD at [facility] Explanted:Qty: 1 on 10/16/2020 at [facility] [employer] [facility] 05/21/2023 180-223 / / [id number] Procedures Procedure Name Priority Date/Time Associated Diagnosis Comments PET/CT PROSTATE CANCER PSMA SKULL TO THIGH Schedule Routine, Read Routine (OP Routine) 12/29/2024 1:54 PM CDT Prostate cancer (HCC) EGFR Routine 12/29/2024 9:45 AM CDT Malignant neoplasm of colon, unspecified part of colon (HCC) DIFFERENTIAL AUTO Routine 12/29/2024 9:4 5 AM CDT Malignant neoplasm of colon, unspecified part of colon (HCC) CBC WITH AUTO DIFFERENTIAL Routine 12/29/2024 9:45 AM CDT Malignant neoplasm of colon, unspecified part of colon (HCC) CEA Routine 12/29/2024 9:45 AM CDT Malignant neoplasm of colon, unspecified part of colon (HCC) COMPREHENSIVE METABOLIC PANEL Routine 12/29/2024 9:45 AM CDT Malignant neoplasm of colon, unspecified part of colon (HCC) IRON PROFILE W/ IBC Routine 12/29/2024 9 :45 AM CDT Malignant neoplasm of colon, unspecified part of colon (HCC) FERRITIN Routine 12/29/2024 9:45 AM CDT Malignant neoplasm of colon, unspecified part of colon (HCC) CT CHEST ABDOMEN PELVIS W CONTRAST Schedule Routine, Read Routine (OP Routine) 12/20/2024 9:52 AM CDT Malignant neoplasm of colon, unspecified part of colon (HCC) POCT CREATININE FOR CONTRAST EVALUATION Routine 12/20/2024 9:46 AM CDT COLONOSCOPY Routine 09/16/2024 2:30 PM CDT from Last 3 Months or Most Recently Relevant to Health Maintenance Results * PET/CT Prostate Cancer PSMA Skull to Thigh (12/29/2024 1:54 PM CDT) Anatomical Region Laterality Modality N/A Positron Emissio n Tomography (PET) 12/29/2024 2:12 PM CDT Narrative 12/29/2024 2:34 PM CDT EXAM DESCRIPTION: F 18-PSMA PET-CT REASON FOR STUDY: Prostate cancer, residual or recurrent disease suspected, radical prostatectomy 2021 and androgen deprivation therapy July 2021. History of colon cancer December 2023 last chemotherapy June 2024. History of a left posterior 10th rib biopsy 03/14/2024, the biopsy results are not available. RADIOPHARMACEUTICAL: 10 mCi F-18 PSMA via left antecubital IV. TECHNIQUE: The patient received an IV injection of the radiotracer. After an initial uptake phase of approximately 60 minutes, a low-dose CT scan without intravenous and without oral contrast was acquired from skull base to mid-thigh. Subsequently positron emission tomography images were obtained from the thigh to skull base. CT, PET and fused images were reconstructed in transaxial, coronal, and sagittal projections and interpreted from a workstation. COMPARISON: 02/02/2024. FINDINGS: Prostate/prostate bed: Status post prostatectomy. No abnormal PSMA activity in the prostatectomy bed or expected locations of anastomosis. Lymph nodes: No PSMA avid pelvic lymphadenopathy. In the abdomen, there is an aortocaval lymph node which is 1.0 x 0.4 cm having a maximal SUV of 3.6, previously 0.9 x 0.4 cm with a maximal SUV of 1.7 as remeasured. No other PSMA avid upper abdominal lymph nodes are seen. There is expected activity of the celiac axis ganglion. No PSMA avid cervical or thoracic lymphadenopathy. Osseous structures: There is a subtle area of ground-sclerosis associated with the glenoid of the right scapula, this has a maximal SUV of 3.1 and this activity is new from the prior study. Low level activity in the posterior column of the acetabula, on the right maximal SUV 2.8 and on the left 2.3. Tiny area of sclerosis with low level activity right anterior 6th rib maximal SUV 1.8. Is severe arthritic change of the left hip. Previous activity associated with the left posterior 10th rib at the costovertebral junction shows resolution of activity. Head and neck: Expected prominent radiotracer activity in the lacrimal and salivary glands. No radiotracer avid cervical lymph nodes. Chest: No abnormal radiotracer uptake in the chest. Status post median sternotomy and CABG. The heart is mildly enlarged. There is no pleural or pericardial effusion. No suspicious pulmonary nodules. Gynecomastia is noted. Abdomen and pelvis: Expected mild activity in the liver without focal abnormal uptake. Expected intense radiotracer activity in the urinary system, proximal small bowel and spleen. Granulomatous calcifications in the spleen. Prominent food material in the stomach. Metallic densities noted anterior to the body the stomach. There is a moderate hiatal hernia. Soft tissues: No abnormal radiotracer activity in the soft tissues. IMPRESSION: 1. Status post prostatectomy with no evidence of PSMA avid local recurrence. 2. No evidence of PSMA avid local lymphadenopathy. 3. Slight increased size and activity of an aortocaval lymph node, this is nonspecific but the activity is less than typically seen for node positive disease. Short-term follow-up PSA level and could consider short-term follow-up PSMA scan. 4. Resolution of activity previously seen in the left posterior 10th rib. Areas of low level activity in the right scapula, right anterior 6th rib, and posterior column of the acetabula, nonspecific but not typical for metastatic disease. THIS IS AN ELECTRONICALLY VERIFIED FINAL REPORT 12/29/2024 2:34 PM - Electronically signed by Yan Hairston M.D. CH: Report ID: [id number] Reading Location: [id number] Procedure Note Yan Hairston MD - 12/29/2024 EXAM DESCRIPTION: F 18-PSMA PET-CT REASON FOR STUDY: Prostate cancer, residual or recurrent diseasesuspected, radical prostatectomy 2021 and androgen deprivation therapy July 2021. History of colon cancer December 2023 last chemotherapy June 2024.History of a left posterior 10th rib biopsy 03/14/2024, the biopsy results are not available. RADIOPHARMACEUTICAL: 10 mCi F-18 PSMA via left antecubital IV. TECHNIQUE: The patient received an IV injection of the radiotracer. Afteran initial uptake phase of approximately 60 minutes, a low-dose CT scanwithout intravenous and without oral contrast was acquired from skull base to mid-thigh. Subsequently positron emission tomography images were obtainedfrom the thigh to skull base. CT, PET and fused images were reconstructed in transaxial, coronal, and sagittal projections and interpreted from a workstation. COMPARISON: 02/02/2024. FINDINGS: Prostate/prostate bed: Status post prostatectomy. No abnormalPSMA activity in the prostatectomy bed or expected locations of anastomosis. Lymph nodes: No PSMA avid pelvic lymphadenopathy. In the abdomen, thereis an aortocaval lymph node which is 1.0 x 0.4 cm having a maximal SUV of3.6, previously 0.9 x 0.4 cm with a maximal SUV of 1.7 as remeasured. No other PSMA avid upper abdominal lymph nodes are seen. There is expectedactivity of the celiac axis ganglion. No PSMA avid cervical or thoraciclymphadenopathy. Osseous structures: There is a subtle area of ground-sclerosis associated with the glenoid of the right scapula, this has a maximal SUV of 3.1 andthis activity is new from the prior study. Low level activity in the posterior column of the acetabula, on the right maximal SUV 2.8 and on the left 2.3. Tiny area of sclerosis with low level activity right anterior 6th ribmaximal SUV 1.8. Is severe arthritic change of the left hip. Previous activity associated with the left posterior 10th rib at the costovertebral junction shows resolution of activity. Head and neck: Expected prominent radiotracer activity in the lacrimaland salivary glands. No radiotracer avid cervical lymph nodes. Chest: No abnormal radiotracer uptake in the chest. Status post median sternotomy and CABG. The heart is mildly enlarged. There is no pleuralor pericardial effusion. No suspicious pulmonary nodules. Gynecomastia is noted. Abdomen and pelvis: Expected mild activity in the liver without focal abnormal uptake. Expected intense radiotracer activity in the urinarysystem, proximal small bowel and spleen. Granulomatous calcifications in thespleen. Prominent food material in the stomach. Metallic densities noted anteriorto the body the stomach. There is a moderate hiatal hernia. Soft tissues: No abnormal radiotracer activity in the soft tissues. IMPRESSION: 1. Status post prostatectomy with no evidence of PSMA avid localrecurrence. 2. No evidence of PSMA avid local lymphadenopathy. 3. Slight increased size and activity of an aortocaval lymph node, thisis nonspecific but the activity is less than typically seen for node positive disease. Short-term follow-up PSA level and could consider short-term follow-up PSMA scan. 4. Resolution of activity previously seen in the left posterior 10thrib. Areas of low level activity in the right scapula, right anterior 6th rib,and posterior column of the acetabula, nonspecific but not typical formetastatic disease. THIS IS AN ELECTRONICALLY VERIFIED FINAL REPORT 12/29/2024 2:34 PM - Electronically signed by Yan Hairston M.D. CH: Report ID: [id number] Reading Location: [place] [address] Mike Ledezma MD PhD IMG PET PROCEDURES Fin al Result * eGFR (12/29/2024 9:45 AM CDT) eGFR 70 >=60 mL/min/1. 73 m2 Comment: [...] of Race in Diagnosing Kidney Disease, JASN 202). The CKD-EPI equation should not be used for patients with unstable renal function and has not been validated in children and those over 70. Current interpretive data was last reviewed 2021. Testing performed by: [facility], [address] [place] [address]., [address] Blood 12/29/2024 9:45 AM CDT 12/29/2024 9:50 AM CDT us Danielle Juana Lopez VENTURE CAPITALIST LAB BLOOD ORDERABLES Final Result MEGAN [address] [facility] [place] [address] * (ABNORMAL) Differential, auto (12/29/2024 9:45 AM CDT) Neutrophil abs 8.85(H) 1.50 - 6.50 K/cumm Comment:Testing performed by : [address] [address] Imm gran abs 0.05 0.00 - 0.10 K/cumm MEGAN Comment:Testing performed by : [address] [address] Lymphocyte abs 0.85 0.80 - 3.30 K/cumm MEGAN Comment:Testing performed by : [address] [address] Monocyte abs 0.68 0.20 - 0.80 K/cumm MEGAN Comment:Testing performed by : [address] [address] Eosinophil abs 0.00 0.00 - 0.50 K/cumm MEGAN Comment:Testing performed by : [address] [address] Basophil abs 0.01 0.00 - 0.10 K/cumm MEGAN Comment:Testing performed by : [address] [address] Neutrophil pct 84.8 % MEGAN Comment: Interpretive Data Percent cell count reference ranges are not reported, since discordance with absolute values may lead to misinterpretation of CBC data. Current Interpretive Data was last revised on 2017. Testing performed by: [address] [address] Imm gran pct 0.5 % MEGAN Comment: Interpretive Data Percent cell count reference ranges are not reported, since discordance with absolute values may lead to misinterpretation of CBC data. Current Interpretive Data was last revised on 2017. Testing performed by: [address] [address] Lymphocyte pct 8.1 % MEGAN Comment: Interpretive Data Percent cell count reference ranges are not reported, since discordance with absolute values may lead to misinterpretation of CBC data. Current Interpretive Data was last revised on 2017. Testing performed by: [address] [address] Monocyte pct 6.5 % MEGAN Comment: Interpretive Data Percent cell count reference ranges are not reported, since discordance with absolute values may lead to misinterpretation of CBC data. Current Interpretive Data was last revised on 2017. Testing performed by: [address] [address] Eosinophil pct 0.0 % MEGAN Comment: Interpretive Data Percent cell count reference ranges are not reported, since discordance with absolute values may lead to misinterpretation of CBC data. Current Interpretive Data was last revised on 2017. Testing performed by: [address] [address] Basophil pct 0.1 % MEGAN Comment: Interpretive Data Percent cell count reference ranges are not reported, since discordance with absolute values may lead to misinterpretation of CBC data. Current Interpretive Data was last revised on 2017. Testing performed by: [address] [address] Blood 12/29/2024 9:45 AM CDT 12/29/2024 9:50 AM CDT Danielle Marroquin VENT[employer]ITALIST LAB BLOOD ORDERABLES Final Result [facility] [address] [facility] [place] [address] * (ABNORMAL) Iron profile w/ IBC (12/29/2024 9:45 AM CDT) Iron 61 50 - 150 mcg/dL Comment:Testing performed by : [address] [address] TIBC 324 250 - 400 mcg/dL MEGAN RIZO Comment:Testing performed by : [address] [address] Transferrin saturation 19(L) 20 - 50 % MEGAN RIZO Comment:Testing performed by : [address] [address] Blood 12/29/2024 9:45 AM CDT 12/29/2024 11:42 AM CDT Danielle Marroquin V[facility] [employer] LAB BLOOD ORDERABLES Final Result MEGAN [address] [facility] Department of Laboratories [place], [place] [id number] * (ABNORMAL) CBC with auto differential (12/29/2024 9:45 AM CDT) WBC 10.44(H) 3.80 - 9.90 K/cumm Comment:Testing performed by : [address] [address] Hgb 13.2 13.0 - 17.5 g/dL MEGAN RIZO Comment:Testing performed by : [address] [address] Hct 39.0 38.9 - 50.3 % MEGAN RIZO Comment:Testing performed by : [address] [address] Plt 191 150 - 400 K/cumm MEGAN RIZO Comment:Testing performed by : [address] [address] MPV 9.3 9.1 - 12.3 fL MEGAN RIZO Comment:Testing performed by : [address] [address] RBC 4.62 4.30 - 5.80 M/cumm MEGAN RIZO Comment:Testing performed by : [address] [address] MCV 84.4 81.3 - 96.4 fL MEGAN RIZO Comment:Testing performed by : [address] [address] MCH 28.6 27.1 - 33.3 pg MEGAN RIZO Comment:Testing performed by : [address] [address] MCHC 33.8 32.3 - 35.7 g/dL MEGAN RIZO Comment:Testing performed by : [address] [address] RDW CV 14.5 11.1 - 14.9 % MEGAN Comment:Testing performed by : [address] [address] RDW SD 43.8 35.7 - 48.1 fL MEGAN Comment:Testing performed by : [address] [address] NRBC abs 0.00 0.00 - 0.01 K/cumm MEGAN Comment:Testing performed by : [address] [address] ANC Prelim 8.85(H) 1.50 - 6.50 K/cumm MEGAN Comment: Interpretive Data The rapid ANC is a preliminary automated count and may vary from the final ANC (Neut Abs) reported in the WBC differential that follows. Current interpretive data was last revised 2024. Testing performed by: [address] [address] Blood 12/29/2024 9:45 AM CDT 12/29/2024 9:50 AM CDT Danielle Marroquin [employer] LAB BLOOD ORDERABLES Final Result MEGAN [address] [facility] Department of Laboratories [place], [place] [id number] * Ferritin (12/29/2024 9:45 AM CDT) [facility] Ferritin 61 30 - 400 ng/mL Comment:Testing performed by : [address] [address] Blood 12/29/2024 9:45 AM CDT 12/29/2024 11:42 AM CDT Danielle Marroquin LAB BLOOD ORDERABLES Final Result Performing Organization Address [facility] de Phone Number MEGAN [facility] [place] [place] [address] * CEA (12/29/2024 9:45 AM CDT) Pathologist [facility] CEA 1.6 <=5.0 ng/mL Comment: Interpretive Data: Reference Range: Non-Smokers: 0.0 5.0 ng/mL Smokers: 0.0 6.5 ng/mL The Alex CEA assay procedure was used. Results from different manufacturers or methods may not be comparable. Serial testing should be performed using the same method. Current interpretive data was last revised 2022. Testing performed by: [address] [address] Blood 12/29/2024 9:45 AM CDT 12/29/2024 11:42 AM CDT Danielle Marroquin LAB BLOOD ORDERABLES Final Result Performing Organization Address [facility] Co de Phone Number MEGAN [facility] [place] [place] [address] * (ABNORMAL) Comprehensive metabolic panel (12/29/2024 9:45 AM CDT) [facility] Sodium 136 135 - 145 mmol/L Comment:Testing performed by : [address] [address] Potassium, pl 3.9 3.3 - 4.9 mmol/L MEGAN Comment:Testing performed by : [address] [address] Chloride 98 97 - 110 mmol/L MEGAN Comment:Testing performed by : [address] [address] CO2 22 22 - 32 mmol/L MEGAN Comment:Testing performed by : [address] [address] Anion gap 16(H) 2 - 15 mmol/L MEGAN Comment:Testing performed by : [address] [place]., [address] BUN 28(H) 6 - 25 mg/dL MEGAN Comment:Testing performed by : [address] [address] Creatinine 1.10 0.80 - 1.30 mg/dL MEGAN Comment:Testing performed by : [address] [address] Glucose 168 70 - 199 mg/dL MEGAN Comment: Interpretive [...] last revised 2022. Testing performed by: [address] [address] Calcium 9.4 8.5 - 10.3 mg/dL MEGAN Comment:Testing performed by : [address] [address] Bilirubin, total 0.5 0.1 - 1.2 mg/dL MEGAN Comment:Testing performed by : [address] [address] Protein, pl 6.8 6.5 - 8.5 g/dL MEGAN Comment:Testing performed by : [address] [address] Albumin 4.2 3.5 - 5.0 g/dL MEGAN Comment:Testing performed by : [address] [address] Alk phos 83 40 - 130 Units/L MEGAN Comment:Testing performed by : [address] [address] ALT 22 7 - 55 Units/L MEGAN Comment:Testing performed by : [address], [address] AST 16 10 - 50 Units/L MEGAN RIZO Comment:Testing performed by : [facility], [address] [place] [address], [place]., [address] Blood 12/29/2024 9:45 AM CDT 12/29/2024 9:50 AM CDT Danielle Marroquin NP LAB BLOOD ORDERABLES Final Result MEGAN RIZO [address] [facility] [place] [address] * CT Chest Abdomen Pelvis W Contrast (12/20/2024 9:52 AM CDT) Anatomical Region Laterality Modality Body N/A Computed Tomogra phy 12/26/2024 3:56 AM CDT Narrative 12/26/2024 4:05 AM CDT EXAM DESCRIPTION: CT CHEST ABDOMEN PELVIS W CONTRAST REASON FOR STUDY: Colon cancer Colon cancer, Malignant neoplasm of colon, unspecified part of colon (HCC) TECHNIQUE: CT scan of the chest, abdomen, [...] IODINE/ML INTRAVENOUS SYRINGE injected via intravenous COMPARISON: 09/20/2024 FINDINGS: LUNGS: Clear. Trachea and major airways are patent. HEART/MEDIASTINUM/LISA: Heart size normal. Coronary artery calcifications. No enlarged lymph node. Thoracic inlet unremarkable. CHEST MSK: Diffuse anterior marginal osteophytosis. Shoulder arthritis. Sternotomy wires CHEST WALL: Unremarkable. LIVER/BILIARY: Liver unremarkable. Biliary tree normal in caliber. GALLBLADDER: Normal. SPLEEN: Normal. PANCREAS: Moderate atrophy. ADRENAL GLANDS: Normal. KIDNEYS/URINARY TRACT: Moderate cddb-taquwng-tsnf-right renal atrophy. Ureters and bladder appear normal. GI: Stomach and small bowel appear normal. Colonic anastomosis intact. Colon unremarkable. Normal appendix. OTHER ABDOMINAL/PELVIS: Major vascular structures are grossly patent and normal in caliber. Heavy atherosclerotic calcification. Prostatectomy. MSK: Moderate disc disease and facet arthropathy. Advanced hip and SI joint arthrosis. BODY WALL: Unremarkable. IMPRESSION: No evidence of active malignancy. Chronic findings as above. THIS IS AN ELECTRONICALLY VERIFIED FINAL REPORT 12/26/2024 4:05 AM - Electronically signed by Erickson Moulton M.D. AR: ROSEMARIE Report ID: [id number] Reading Location: [id number] Procedure Note Erickson Moulton MD - 12/26/2024 EXAM DESCRIPTION: CT CHEST ABDOMEN PELVIS W CONTRAST REASON FOR STUDY: Colon cancer Colon cancer, Malignant neoplasm of colon, unspecified part of colon (HCC) TECHNIQUE: CT scan of the chest, abdomen, and pelvis performed with intravenous and without oral contrast using helical scanning techniquewith dynamic intravenous contrast injection. Reconstructed coronal and sagittalMPR images reviewed. All images stored on PACS. Automated exposure control was used as a dose optimization technique for this examination. CONTRAST TYPE/DOSE: 100mL of IOVERSOL 350 MG IODINE/ML INTRAVENOUS SYRINGE injected via intravenous COMPARISON: 09/20/2024 FINDINGS: LUNGS: Clear. Trachea and major airways are patent. HEART/MEDIASTINUM/LISA: Heart size normal. Coronary arterycalcifications. No enlarged lymph node. Thoracic inlet unremarkable. CHEST MSK: Diffuse anterior marginal osteophytosis. Shoulder arthritis. Sternotomy wires CHEST WALL: Unremarkable. LIVER/BILIARY: Liver unremarkable. Biliary tree normal in caliber. GALLBLADDER: Normal. SPLEEN: Normal. PANCREAS: Moderate atrophy. ADRENAL GLANDS: Normal. KIDNEYS/URINARY TRACT: Moderate jdhc-pppfaox-oybg-right renal atrophy. Ureters and bladder appear normal. GI: Stomach and small bowel appear normal. Colonic anastomosis intact. Colon unremarkable. Normal appendix. OTHER ABDOMINAL/PELVIS: Major vascular structures are grossly patent and normal in caliber. Heavy atherosclerotic calcification. Prostatectomy. MSK: Moderate disc disease and facet arthropathy. Advanced hip and SIjoint arthrosis. BODY WALL: Unremarkable. IMPRESSION: No evidence of active malignancy. Chronic findings as above. THIS IS AN ELECTRONICALLY VERIFIED FINAL REPORT 12/26/2024 4:05 AM - Electronically signed by Erickson Moulton M.D. AR: ROSEMARIE Report ID: [id number] Reading Location: [id number] us Gilmer Menezes MD IMG CT PROCEDURES Fi nal Result * POCT creatinine for contrast evaluation (12/20/2024 9:46 AM CDT) Creatinine POC 1.10 0.80 - 1.30 mg/dL Comment:Testing performed by : [facility], [address] [place] [address]., [address] Blood 12/20/2024 9:46 AM CDT 12/20/2024 9:46 AM CDT us Jonelle Deluna MD POINT OF CARE TEST ORDERAB LES Final Result [facility] [address] [facility] Department of Laboratories [place], [place] [id number] * Colonoscopy (09/16/2024 2:30 PM CDT) Anatomical Region Laterality Modality Other us Historical Provider ENDOSCOPY PROCEDURES Zaira l Result from Last 3 Months or Most Recently Relevant to Health Maintenance Insurance AET MEDICARE [facility] MEDICARE ADVANTAGE [facility] MEDICARE [facility] MEDICARE Advance Directives For more information, please contact: [phone] * Full Code (Latest Code Status on File) Date Activated Date Inactivated Comments 12/28/2023 7:16 AM 12/29/2023 5:30 AM * Full Code Date Activated Date Inactivated Comments 11/02/2023 4:41 PM 11/05/2023 3:41 PM * Full Code Date Activated Date Inactivated Comments 10/16/2020 1:38 PM 10/18/2020 8:32 PM Care Teams Ginner Helper Relationship Specialty Start Date End Date Rolando Kaiden StaffordDO [address] [place] [address] PCP - General Family Medicine 10/10/21 Timbo Cardoso MD Consulting Physician Neurology 10/18/20 Mike Ledezma MD PhD [address] [place] [address] Radiation Oncologist Radiation Oncology 02/21/21 Edelmira Alexandre NP [address] [place] [address] Registered Nurse Family Medicine 09/08/23 Jonelle Deluna MD [address] [phone] [place] [address] Surgeon Colon and Rectal Surgery 09/29/23 Danielle Marroquni NP [address] [place] [address] Nurse Practitioner Medical Oncology 12/26/24
--- OUTSIDE RECORDS SUMMARY | 2025-01-23 11:34 | XMS_ITS | Encounter Summary ---
Author Organization [facility] Healthcare Address [address] [place] [address] Care Team Providers Care Finished Yarn Examiner Name Role Phone Timbo Cardoso MD Unavailable Mike Ledezma MD PhD Unavailable [phone] Esdras Conway MD Unavailable [phone] Kaiden Marshall DO Primary Care Provider Edelmira Alexandre NP Unavailable [phone] Jonelle Deluna MD Unavailable [phone] Gilmer Menezes MD Unavailable [phone]- [phone] Danielle Marroquin NP Unavailable [phone]- [phone] Encounter Details Date Type Department Care Team (Late st Contact Info) Description 02/11/2024 Telephone [facility] [address] [place] [address] Tiffany Kennedy, FRANDY Social History Tobacco Use Types Packs/Day Years [...] on file 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 Gender Identity Male 01/29/2021 1:19 PM CDT Sexual Orientation Not on file documented as of this encounter Plan of Treatment Not on file documented as of this encounter Visit Diagnoses Not on filedocumented in this encounter Care Teams Finished Yarn Examiner Relationship Specialty Start Date End Date Kaiden Marshall DO [address] [place] [address] PCP - General Family Medicine 10/10/21 Timbo Cardoso MD Consulting Physician Neurology 10/18/20 Mike Ledezma MD PhD [address] [place] [address] Radiation Oncologist Radiation Oncology 02/21/21 Esdras Conway MD [address] [place] [address] Referring Physician Urology 02/21/21 04/20/24 Edelmira Alexandre NP [address] [place] [address] Registered Nurse Family Medicine 09/08/23 Jonelle Deluna MD [address] [phone] [place] [address] Surgeon Colon and Rectal Surgery 09/29/23 Gilmer Menezes MD [address] [phone] [place] [address] Medical Oncologist/Ticketer Medical Oncology 11/24/23 12/21/24 Danielle Marroquin NP [address] [place] [address] Nurse Practitioner Medical Oncology 12/26/24 documented as of this encounter
--- OUTSIDE RECORDS SUMMARY | 2025-01-23 11:34 | XMS_ITS ---
Author Organization [facility] Address [address] [place] [address] Care Team Providers Care Mica Miner Name Role Phone Timbo Cardoso MD Unavailable Mike Ledezma MD PhD Unavailable [phone] Kaiden Marshall DO Primary Care Provider Edelmira Alexandre NP Unavailable [phone] Jonelle Deluna MD Unavailable Danielle Marroquin NP Unavailable [phone]- [phone] Active Problems Problem Noted Date Diagnosed Date DVT of lower extremity, bilateral 03/07/2024 Iron deficiency anemia due to chronic blood loss 01/13/2024 Anemia 01/12/2024 Colon cancer 11/02/2023 Acute postoperative abdominal pain 11/02/2023 Coronary artery disease invo lving [place] coronary artery of [place] heart 05/02/2023 Iron deficiency anemia 05/12/2022 AV [...] (08/15/2020): Added automatically from request for surgery [id number] Assessment & Plan (02/12/2022 11:29 AM CDT): [...] (07/12/2020): Added automatically from request for surgery [id number] Rising PSA following treatme nt for malignant neoplasm of prostate 04/20/2020 Overview (04/20/2020): Added automatically from request for surgery [id number] Elevated PSA 04/20/2020 Overview (03/07/2024): Added automatically from request for surgery [id number] Edema of left lower extremity 02/28/2020 History [...]
--- OUTSIDE RECORDS SUMMARY | 2025-01-23 11:34 | XMS_ITS | Clinical Summary ---
Author Organization [facility] Address [address] [place] [address] Phone Care Team Providers Care Electrical And Instrument Engineer Name Role Phone Karly Pat MD Unavailable Kaiden Marshall MD Primary Care Provider [phone] Allergies No known active allergies Medications amLODIPine [...] Active fluticasone (FLONASE) 50 MCG/ACT Suspension 1 [place] by Nasal route nightly. Use in each [...] Mrna, Lnp-s, Pf, 30 Mcg/0.3 Ml Dose (P fizer) 02/19/2021 Family History Medical History Relation Name [...] 177.8 cm (5' 10) 05/26/2023 9:24 AM HOT MILL ROLLER Body Mass Index 30.28 05/26/2023 9:24 AM HOT MILL ROLLER Plan of Treatment Upcoming Encounters Date Type Department Care Team (Late st Contact Info) Description 02/09/2025 8:00 AM CDT Appointment [facility] Ultrasound [address] [place] [phone] Karly Pat MD [address] [phone] Discharge Disposition: Discharged to home or Selfcare 02/21/2025 10:00 AM CDT Office Visit [facility] - [place] [address] [place] [phone] Karly Pat MD [address] [phone] Health Maintenance Due Date Last Done Comments Hepatitis C Virus (HCV) Screening 1950 TdaP Immunization 1950 Zoster Immunization (1 of 2) 12/19/1967 Hepatitis B Immunization (1 of 3 - Risk 3-dose series) 2008 Pneumococcal Immunization (5 0+ years) (2 of 2 - PCV) 11/22/2020 11/23/2019, 10/18/2019 Respiratory Syncytial Virus (RSV) Immunization (Adult) (1 - 1-dose 75+ series) 12/19/2023 Influenza Immunization (#1) 01/09/202509/2020, 02/11/2021, 02/28/2020 SARS-COV-2 Immunization ( season) 2025 02/19/2021, 07/06/2020, 06/15/2020 Human Papillomavirus (HPV) Immunization Aged Out No longer eligible b ased on patient's age to complete this topic Meningococcal Immunization (ACWY) Aged Out No longer eligible b ased on patient's age to complete this topic Rotavirus Immunization Aged Out No lo nger eligible based on patient's age to complete this topic Insurance MEDICARE C [employer]ET[employer] Care Teams Electrical And Instrument Engineer Relationship Specialty Start Date End Date Kaiden Marshall MD [address] [place] [address] PCP - General Family Medicine 02/20/22 Karly Pat MD [address] [phone] Consulting Physician Endocrinology 02/11/22
[2025-01-23 12:22] VITALS: BP 127/72; PULSE 65; RESP 16; O2SAT 99
[2025-01-23] MEDS: LIDOCAINE 1% PF INJ 5 ML VIAL INFILTRATE (12:24)
[2025-01-23] MEDS: BUPivacaine HCL 0.5% 10 ML AMP INFILTRATE (12:25)
[2025-01-23 12:27] VITALS: BP 129/65; PULSE 65; RESP 16; O2SAT 99
[2025-01-23 12:31] VITALS: BP 132/63; PULSE 71; RESP 16; O2SAT 100
== END 2025-01-23 12:47 | disposition home or self-care (01) ==
PROVIDERS: PCP Family Medicine; Visit Provider Anesthesiology Pain Medicine
PROC: (CPT 64450; principal; 2025-01-23 11:30)
DX: M16.0 Bilateral primary osteoarthritis of hip (principal); M25.552 Pain in left hip
CPT/HCPCS: 64450 ×2; 99199

== ENCOUNTER 2025-02-06 06:57 | Day surgery (SDC) | payer MEDICARE, SELFPAY ==
[2025-01-30 15:00] VITALS: BMI 30.3
--- NOTE | ~2025-02-06 | XR_ITS ---
EXAMINATION: XR fluoroscopy no charge DATE: 02/06/2025 08:23 INDICATION: Articular branch block at the left hip TECHNIQUE: 5 fluoroscopic images of the left hip were obtained during procedure performed by Dr. Alejo. Radiologist was not present for the imaging or procedure. The amount of fluoroscopy time used during this procedure was 1.3 minutes. 2 mm of radiation dose was 23.03 mGy. COMPARISON: None. FINDINGS: Initial images demonstrate a needle tip projecting over the lateral aspect of the obturator foramen along the medial margin of the junction of the left superior and inferior pubic rami. Subsequent images demonstrate a second needle tip projecting over the apex of the left femoral head and anterosuperior rim of the left acetabulum. Some injected contrast extends craniocaudally along the course of the left iliopsoas tendon. Moderate osteoarthritis at the left hip. IMPRESSION: 1. Fluoroscopy utilized during pain management procedure the left hip. See procedure note for further detail. Reviewed, dictated and finalized at location A. IMPRESSION: 1. Fluoroscopy utilized during pain management procedure the left hip. See proc edure note for further detail.
--- OUTSIDE RECORDS SUMMARY | 2025-02-06 07:05 | XMS_ITS | Clinical Summary ---
Author Organization [facility] Address [address] [place] [address] Phone Care Team Providers Care Vessel Traffic Officer Name Role Phone Karly Pat MD Unavailable Kaiden Marshall MD Primary Care Provider [phone] Allergies No known active allergies Medications amLODIPine [...] Active fluticasone (FLONASE) 50 MCG/ACT Suspension 1 [place] by Nasal route nightly. Use in each [...] 177.8 cm (5' 10) 05/26/2023 9:24 AM FRY COOK Body Mass Index 30.28 05/26/2023 9:24 AM FRY COOK Plan of Treatment Upcoming Encounters Date Type Department Care Team (Late st Contact Info) Description 02/09/2025 8:00 AM CDT Appointment [facility] Ultrasound 1 [place] [phone] Karly Pat MD [address] [phone] Discharge Disposition: Discharged to home or Selfcare 02/21/2025 10:00 AM CDT Office Visit [facility] - [place] [address] [place] [phone] Karly Pat MD [address] [phone] Health Maintenance Due Date Last Done Comments [...] topic Insurance MEDICARE C [employer]ET[employer] Care Teams Vessel Traffic Officer Relationship Specialty Start Date End Date Kaiden Marshall MD [address] [place] [address] PCP - General Family Medicine 02/20/22 Karly Pat MD [address] [phone] Consulting Physician Endocrinology 02/11/22
--- OUTSIDE RECORDS SUMMARY | 2025-02-06 07:05 | XMS_ITS | Encounter Summary ---
Author Organization [facility] Healthcare Address [address] [place] [address] Care Team Providers Care Supervisor Mold Yard Name Role Phone Timbo Cardoso MD Unavailable Mike Ledezma MD PhD Unavailable [phone] Esdras Conway MD Unavailable [phone] Kaiden Marshall DO Primary Care Provider Edelmira Alexandre NP Unavailable [phone] Jonelle Deluna MD Unavailable [phone] Gilmer Menezes MD Unavailable [phone] Danielle Marroquin NP Unavailable [phone] Encounter Details Date Type Department Care Team (Late st Contact Info) Description 02/11/2024 Telephone [facility] [address] [place] [address] Tiffany Kennedy, FRANDY Social History Tobacco Use [...] on file 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 Gender Identity Male 01/29/2021 1:19 PM CDT Sexual Orientation Not on file documented as of this encounter Plan of Treatment Not on file documented as of this encounter Visit Diagnoses Not on filedocumented in this encounter Care Teams Supervisor Mold Yard Relationship Specialty Start Date End Date Kaiden Marshall DO [address] [place] [address] PCP - General Family Medicine 10/10/21 Timbo Cardoso MD Consulting Physician Neurology 10/18/20 Mike Ledezma MD PhD [address] [place] [address] Radiation Oncologist Radiation Oncology 02/21/21 Esdras Conway MD [address] [place] [address] Referring Physician Urology 02/21/21 04/20/24 Edelmira Alexandre NP [address] [place] [address] Registered Nurse Family Medicine 09/08/23 Jonelle Deluna MD [address] [phone] [place] [address] Surgeon Colon and Rectal Surgery 09/29/23 Gilmer Menezes MD [address] [phone] [place] [address] Medical Oncologist/Independent Sales Representative Medical Oncology 11/24/23 12/21/24 Danielle Marroquin NP [address] [place] [address] Nurse Practitioner Medical Oncology 12/26/24 documented as of this encounter
--- OUTSIDE RECORDS SUMMARY | 2025-02-06 07:06 | XMS_ITS | Clinical Summary ---
Author Organization [facility] Address [address] [place] [address] Care Team Providers Care Magnetic Prospector Name Role Phone Timbo Cardoso MD Unavailable Mike Ledezma MD PhD Unavailable [phone] Kaiden Marshall DO Primary Care Provider Edelmira Alexandre NP Unavailable [phone] Jonelle Deluna MD Unavailable Danielle Marroquin NP Unavailable + [phone] Allergies No known active allergies Medications amLODIPine [...] 5 (five) minutes as needed 0 Active diphenhydrAMINE-a cetaminophen (TYLENOL PM) 25-500 mg tablet Take 1 tablet by mouth nightly Active Eliquis 5 mg tabletIndications :VTE Prophylaxis,atria l fibrillation Take 1 tablet (5 mg total) [...] total) by mouth every evening 4 Active acidophilus-pecti n, citrus 100 million cell-10 mg capsule Take 1 tablet by mouth every morning Active dapagliflozin propanediol (FARXIGA) 10 mg tablet 1 tablet (10 mg total) Active isosorbide mononitrate ER (IMDUR) 60 mg 24 hr tablet Take 1 tablet (60 mg total) by mouth daily 4 Active fluticasone propionate (FLONASE) 50 mcg/actuation nasal spray ADMINISTER 1 SPRAY INTO EACH NOSTRIL DAILY NEEDED FOR RHINITIS OR ALLERGIES. 16 mL 1 5 Active clopidogreL (PLAVIX) 75 mg tablet 5 Active Active Problems Problem Noted Date Diagnosed Date DVT of lower extremity, bilateral 03/07/2024 Iron deficiency anemia due to chronic blood loss 01/13/2024 Anemia 01/12/2024 Colon cancer 11/02/2023 Acute postoperative abdominal pain 11/02/2023 Coronary artery disease invo lving tribe coronary artery of tribe heart 05/02/2023 Iron deficiency anemia 05/12/2022 AV [...] (08/15/2020): Added automatically from request for surgery [id number] Assessment & Plan (02/12/2022 11:29 AM CDT): [...] (07/12/2020): Added automatically from request for surgery [id number] Rising PSA following treatme nt for malignant neoplasm of prostate 04/20/2020 Overview (04/20/2020): Added automatically from request for surgery [id number] Elevated PSA 04/20/2020 Overview (03/07/2024): Added automatically from request for surgery [id number] Edema of left lower extremity 02/28/2020 History [...] Description 01/05/2025 9:30 AM CDT Office Visit [facility] Radiation Oncology [address] [place] [address] Mike Ledezma MD PhD Prostate cancer (HCC) (Primary Dx) 12/29/2024 12:06 PM CDT - 12/29/2024 11:59 PM CDT Hospital Encounter [facility] [address] [address] Prostate cancer (HCC) Discharge Disposition: Discharge to home or self care 12/29/2024 10:20 AM CDT Office Visit [facility] [address] [facility] [address] [place] [id number] Danielle Marroquin, GABRIELE Malignant neoplasm of colon, unspecified part of colon (HCC) (Primary Dx); Anemia, unspecified type; Prostate cancer (HCC); Iron deficiency anemia due to chronic blood loss 12/29/2024 9:45 AM CDT Clinical Support [facility] at [address] [address] Malignant neoplasm of colon, unspecified part of colon (HCC) 12/20/2024 9:13 AM CDT - 12/20/2024 11:59 PM CDT Hospital Encounter [facility] [address] [place] [address] Malignant neoplasm of colon, unspecified part of colon (HCC) Discharge Disposition: Discharge to home or self care 12/09/2024 Telephone [facility] Radiation Oncology [address] [place] [address] Rosmery Cannon RN 12/06/2024 Telephone [facility] Radiation Oncology [address] [place] [address] Emily Lind, PRINTING AND STAMPING SUPERVISOR from Last 3 Months Surgical History Surgery Date Site/Laterality Comments CAROTID ENARTERECTOMYY 06/11/2019 - 07/09/2019 right (pt reports left is approx 70% blocked-monitoring) CARDIAC STENT PLACEMENT 11/09/2019 - 12/09/2019 Dr. 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 Gender Identity Male 01/29/2021 1:19 PM CDT [...] 174 cm (5' 8.5) 04/19/2024 10:48 AM MARKER MACHINE Body Mass Index 32.07 04/19/2024 10:48 AM MARKER MACHINE Plan of Treatment Health Maintenance Due Date Last Done Comments Albumin Creatinine Ratio, Urine 1948 Depression Screening 1948 Hemoglobin A1C 1948 Hepatitis C Screening 1948 Dilated Eye Exam 1948 Foot Exam 1948 Hepatitis B Screening 1966 Zoster Vaccine (1 of 2) 1998 Well Visit 65+ 2013 Covid-19 Vaccine ( - 2024-2 6 season) 2025 01/27/2023, 02/19/2021, 07/06/2020, Additional history exists Influenza Vaccine (#1) 2025 , 02/11/2021, 02/28/2020 Lipid Panel 03/09/2025 03/09/2024, 12/09, 06/14/2019 Fall Risk Assessment 03/14/2025 03/14/2024, 07/24/2022, 03/26/2021 eGFR 12/29/2025 12/29/2024, 09/09, 07/05/2024, Additional history exists DTaP/Tdap/Td Vaccine (2 - Td or Tdap) 09/30/2028 09/30/2018 Pneumococcal vaccine 65+ Completed 020, 10/18/2019, 09/30/2018 Colon Cancer Screening-Colonoscopy Discontinued 09/16/2024 Medical Devices Implanted Type Area Milk Handler Device Identifier Shelf Expiration Date Model / Serial / Lot Stents Implanted:Qty: 11 Bilateral: Heart Description:2005,2008,2009,2 014,2014,2019,2020 Stents and bypass 1993 [employer] Xcela Power Port 8fr [id number] - [id number] Implanted:Qty: 1 on 12/28/[address] [facility] [employer] 06/20/2028 [id number] / / [id number] Explanted Type Area Milk Handler Device Identifier Shelf Expiration Date Model / Serial / Lot [employer] Eloy 180-223 Contour 6fr 26cm Large Inner Lumen Low Profile Bladder Melvin Taper Latex Free - [id number] Implanted:Qty: 1 on 09/13/2020 by Esdras Conway MD at [facility] Explanted:Qty: 1 on 10/16/2020 at [facility] [employer] 05/21/2023 180-223 / / [id number] Procedures Procedure Name Priority Date/Time Associated Diagnosis [...] Yan Hairston M.D. CH: DESI Report ID: [id number] Reading Location: [id number] Procedure Note Yan Hairston MD - 12/29/2024 [...] Yan Hairston M.D. CH: DESI Report ID: [id number] Reading Location: [place] [address] us Mike Ledezma MD PhD IMG PET PROCEDURES [...] was last reviewed 2021. Testing performed by: [address] [address] Blood 12/29/2024 9:45 AM CDT 12/29/2024 9:50 AM CDT Danielle Marroquin NP LAB BLOOD ORDERABLES Final Result MEGAN [address] [facility] Department [place] [address] * (ABNORMAL) Differential, auto (12/29/2024 9:45 AM CDT) Neutrophil abs 8.85(H) 1.50 - 6.50 K/cumm Comment:Testing performed by : [address] [address] Imm gran abs 0.05 0.00 - 0.10 K/cumm MEGAN Comment:Testing performed by : [address] [address] Lymphocyte abs 0.85 0.80 - 3.30 K/cumm MEGAN Comment:Testing performed by : [address] [address] Monocyte abs 0.68 0.20 - 0.80 K/cumm MEGAN Comment:Testing performed by : [address] [address] Eosinophil abs 0.00 0.00 - 0.50 K/cumm MEGAN Comment:Testing performed by : [address] [address] Basophil abs 0.01 0.00 - 0.10 K/cumm MEGAN Comment:Testing performed by : [address] [address] Neutrophil pct 84.8 % MEGAN Comment: Interpretive Data Percent cell count reference ranges are not reported, since discordance with absolute values may lead to misinterpretation of CBC data. Current Interpretive Data was last revised on 2017. Testing performed by: [address] [address] Imm gran pct 0.5 % [facility] Comment: Interpretive Data Percent cell count reference ranges are not reported, since discordance with absolute values may lead to misinterpretation of CBC data. Current Interpretive Data was last revised on 2017. Testing performed by: [address] [address] Lymphocyte pct 8.1 % [facility] Comment: Interpretive Data Percent cell count reference ranges are not reported, since discordance with absolute values may lead to misinterpretation of CBC data. Current Interpretive Data was last revised on 2017. Testing performed by: [address] [address] Monocyte pct 6.5 % [facility] Comment: Interpretive Data Percent cell count reference ranges are not reported, since discordance with absolute values may lead to misinterpretation of CBC data. Current Interpretive Data was last revised on 2017. Testing performed by: [address] [address] Eosinophil pct 0.0 % [facility] Comment: Interpretive Data Percent cell count reference ranges are not reported, since discordance with absolute values may lead to misinterpretation of CBC data. Current Interpretive Data was last revised on 2017. Testing performed by: [address] [address] Basophil pct 0.1 % [facility] Comment: Interpretive Data Percent cell count reference ranges are not reported, since discordance with absolute values may lead to misinterpretation of CBC data. Current Interpretive Data was last revised on 2017. Testing performed by: [address] [address] Blood 12/29/2024 9:45 AM CDT 12/29/2024 9:50 AM CDT us Danielle Marroquin SLEEVE BOTTOM FELLER LAB BLOOD ORDERABLES Final Result Performing Organization Address [facility] Co de Phone Number MEGAN [facility] Department [place] [address] * (ABNORMAL) Iron profile w/ IBC (12/29/2024 9:45 AM CDT) [facility] Iron 61 50 - 150 mcg/dL Comment:Testing performed by : [address] [address] TIBC 324 250 - 400 mcg/dL MEGAN RIZO Comment:Testing performed by : [address] [address] Transferrin saturation 19(L) 20 - 50 % MEGAN Comment:Testing performed by : [address] [address] Blood 12/29/2024 9:45 AM CDT 12/29/2024 11:42 AM CDT Danielle Marroquin SLEEVE BOTTOM FELLER LAB BLOOD ORDERABLES Final Result Performing Organization Address [facility] Co de Phone Number MEGAN [address] [facility] Department [place] [address] * (ABNORMAL) CBC with auto differential (12/29/2024 9:45 AM CDT) [facility] WBC 10.44(H) 3.80 - 9.90 K/cumm Comment:Testing performed by : [address] [address] Hgb 13.2 13.0 - 17.5 g/dL MEGAN RIZO Comment:Testing performed by : [address] [address] Hct 39.0 38.9 - 50.3 % MEGAN RIZO Comment:Testing performed by : [address] [address] Plt 191 150 - 400 K/cumm MEGAN RIZO Comment:Testing performed by : [address] [address] MPV 9.3 9.1 - 12.3 fL MEGAN Comment:Testing performed by : [address] [address] RBC 4.62 4.30 - 5.80 M/cumm MEGAN Comment:Testing performed by : [address] [address] MCV 84.4 81.3 - 96.4 fL MEGAN Comment:Testing performed by : [address] [address] MCH 28.6 27.1 - 33.3 pg MEGAN Comment:Testing performed by : [address] [address] MCHC 33.8 32.3 - 35.7 g/dL MEGAN Comment:Testing performed by : [address] [address] RDW CV 14.5 11.1 - 14.9 % MEGAN Comment:Testing performed by : [address] [address] RDW SD 43.8 35.7 - 48.1 fL MEGAN Comment:Testing performed by : [address] [address] NRBC abs 0.00 0.00 - 0.01 K/cumm MEGAN Comment:Testing performed by : [address] [address] ANC Prelim 8.85(H) 1.50 - 6.50 K/cumm MEGAN Comment: Interpretive Data The rapid ANC is a preliminary automated count and may vary from the final ANC (Neut Abs) reported in the WBC differential that follows. Current interpretive data was last revised 2024. Testing performed by: [address] [address] Blood 12/29/2024 9:45 AM CDT 12/29/2024 9:50 AM CDT Danielle Marroquin SLEEVE BOTTOM FELLER LAB BLOOD ORDERABLES Final Result MEGAN [address] [address] * Ferritin (12/29/2024 9:45 AM CDT) Pathologist [facility] Ferritin 61 30 - 400 ng/mL Comment:Testing performed by : [address] [address] Blood 12/29/2024 9:45 AM CDT 12/29/2024 11:42 AM CDT Danielle Marroquin NP LAB BLOOD ORDERABLES Final Result Performing Organization Address [facility] de Phone Number [address] [address] * CEA (12/29/2024 9:45 AM CDT) [facility] CEA 1.6 <=5.0 ng/mL Comment: Interpretive Data: Reference Range: Non-Smokers: 0.0 5.0 ng/mL Smokers: 0.0 6.5 ng/mL The Alex CEA assay procedure was used. Results from different manufacturers or methods may not be comparable. Serial testing should be performed using the same method. Current interpretive data was last revised 2022. Testing performed by: [address] [address] Blood 12/29/2024 9:45 AM CDT 12/29/2024 11:42 AM CDT Danielle Marroquin SLEEVE BOTTOM FELLER LAB BLOOD ORDERABLES Final Result Performing Organization Address [facility] Co de Phone Number [id number] [address] * (ABNORMAL) Comprehensive metabolic panel (12/29/2024 9:45 AM CDT) [facility] Sodium 136 135 - 145 mmol/L Comment:Testing performed by : [address] [address] Potassium, pl 3.9 3.3 - 4.9 mmol/L MEGAN Comment:Testing performed by : [address], [place]., [address] Chloride 98 97 - 110 mmol/L MEGAN Comment:Testing performed by : [address], [place]., [address] CO2 22 22 - 32 mmol/L MEGAN Comment:Testing performed by : [address], [place]., [address] Anion gap 16(H) 2 - 15 mmol/L MEGAN Comment:Testing performed by : [address], [place]., [address] BUN 28(H) 6 - 25 mg/dL MEGAN Comment:Testing performed by : [address], [place]., [address] Creatinine 1.10 0.80 - 1.30 mg/dL MEGAN Comment:Testing performed by : [address], [place]., [address] Glucose 168 70 - 199 mg/dL [facility] Comment: Interpretive Data Fasting glucose >/= 126 [...] was last revised 2022. Testing performed by: [address] [address] Calcium 9.4 8.5 - 10.3 mg/dL MEGAN Comment:Testing performed by : [address], [place]., [address] Bilirubin, total 0.5 0.1 - 1.2 mg/dL MEGAN Comment:Testing performed by : [address] [address] Protein, pl 6.8 6.5 - 8.5 g/dL MEGAN Comment:Testing performed by : [address] [address] Albumin 4.2 3.5 - 5.0 g/dL MEGAN Comment:Testing performed by : [address] [address] Alk phos 83 40 - 130 Units/L MEGAN Comment:Testing performed by : [address] [address] ALT 22 7 - 55 Units/L MEGAN Comment:Testing performed by : [address], [address] AST 16 10 - 50 Units/L MEGAN Comment:Testing performed by : [address] [address] Blood 12/29/2024 9:45 AM CDT 12/29/2024 9:50 AM CDT Danielle Marroquin SLEEVE BOTTOM FELLER LAB BLOOD ORDERABLES Final Result [facility] [address] [facility] Department of Laboratories [place], [place] [id number] * CT Chest Abdomen Pelvis W Contrast [...] atrophy. ADRENAL GLANDS: Normal. KIDNEYS/URINARY TRACT: Moderate nzxz-kjyfwox-kziv-right renal atrophy. Ureters and bladder appear normal. [...] Erickson Moulton M.D. AR: ROSEMARIE Report ID: [id number] Reading Location: [id number] Procedure Note Erickson Moulton MD - 12/26/2024 [...] atrophy. ADRENAL GLANDS: Normal. KIDNEYS/URINARY TRACT: Moderate jjpq-rwgfrjh-ebkg-right renal atrophy. Ureters and bladder appear normal. [...] Erickson Moulton M.D. AR: ROSEMARIE Report ID: [id number] Reading Location: [place] [address] Gilmer Menezes MD IMG CT PROCEDURES Fi nal Result * POCT creatinine for contrast evaluation (12/20/2024 9:46 AM CDT) Creatinine POC 1.10 0.80 - 1.30 mg/dL Comment:Testing performed by : [facility], [address] [place] [address]., [address] Blood 12/20/2024 9:46 AM CDT 12/20/2024 9:46 AM CDT Jonelle Deluna MD POINT OF CARE TEST ORDERAB LES Final Result [facility]NER [address] [facility] [place] [address] * Colonoscopy (09/16/2024 2:30 PM CDT) Anatomical Region Laterality Modality Other Historical Provider ENDOSCOPY PROCEDURES Zaira l Result from Last 3 Months or Most Recently Relevant to Health Maintenance Insurance [facility]IC[facility] MEDICARE Address: [facility] [address] [place] [address] UHC MEDICARE ADVANTAGE [facility] MEDIC[facility] Advance Directives For more information, please contact: [phone] * Full Code (Latest Code Status on File) Date Activated Date Inactivated Comments 12/28/2023 7:16 AM 12/29/2023 5:30 AM * Full Code Date Activated Date Inactivated Comments 11/02/2023 4:41 PM 11/05/2023 3:41 PM * Full Code Date Activated Date Inactivated Comments 10/16/2020 1:38 PM 10/18/2020 8:32 PM Care Teams Magnetic Prospector Relationship Specialty Start Date End Date Kaiden Marshall DO [address] [place] [address] PCP - General Family Medicine 10/10/21 Timbo Cardoso MD Consulting Physician Neurology 10/18/20 Mike Ledezma MD PhD [address] [place] [address] Radiation Oncologist Radiation Oncology 02/21/21 Edelmira Alexandre NP [address] [place] [address] Registered Nurse Family Medicine 09/08/23 Jonelle Deluna MD [address] [facility] [id number] [place] [address] Surgeon Colon and Rectal Surgery 09/29/23 Danielle Marroquin NP [address] [place] [address] Nurse Practitioner Medical Oncology 12/26/24
--- OUTSIDE RECORDS SUMMARY | 2025-02-06 07:06 | XMS_ITS ---
Author Organization [facility] Address [address] [place] [address] Care Team Providers Care Pest Control Operator Name Role Phone Timbo Cardoso MD Unavailable Mike Ledezma MD PhD Unavailable [phone] Kaiden Marshall DO Primary Care Provider Edelmira Alexandre NP Unavailable [phone] Jonelle Deluna MD Unavailable Danielle Marroquin NP Unavailable [phone] Active Problems Problem Noted Date Diagnosed Date DVT of lower extremity, bilateral 03/07/2024 Iron deficiency anemia due to chronic blood loss 01/13/2024 Anemia 01/12/2024 Colon cancer 11/02/2023 Acute postoperative abdominal pain 11/02/2023 Coronary artery disease invo lving jackson coronary artery of jackson heart 05/02/2023 Iron deficiency anemia 05/12/2022 AV [...] (08/15/2020): Added automatically from request for surgery [id number] Assessment & Plan (02/12/2022 11:29 AM CDT): [...] (07/12/2020): Added automatically from request for surgery [id number] Rising PSA following treatme nt for malignant neoplasm of prostate 04/20/2020 Overview (04/20/2020): Added automatically from request for surgery [id number] Elevated PSA 04/20/2020 Overview (03/07/2024): Added automatically from request for surgery [id number] Edema of left lower extremity 02/28/2020 History [...]
--- OUTSIDE RECORDS SUMMARY | 2025-02-06 07:07 | XMS_ITS | Encounter Summary ---
Author Organization [facility] Healthcare Address [facility] [place] [address] Care Team Providers Care Heel Sorter Name Role Phone Giuseppe Kulkarni MD Primary Care Provider Timbo Cardoso MD Unavailable Mike Ledezma MD PhD Unavailable [phone] Esdras Conway MD Unavailable [phone] Kaiden Marshall DO Primary Care Provider Edelmira Alexandre NP Unavailable [phone] Jonelle Deluna MD Unavailable [phone] Gilmer Menezes MD Unavailable [phone] Danielle Marroquin CARBURETOR REBUILDER Unavailable [phone] Encounter Details Date Type Department Care Team (Late st Contact Info) Description 07/04/2020 Telephone [facility] [address] [place] [address] Jonelle Benitez, RT Social History Tobacco Use Types Packs/Day Years Used Date Smoking Tobacco: Never Smokeless Tobacco: Never Alcohol Use Standard Drinks/Week Comments Yes 0 (1 standard drink = 0.6 oz pur e alcohol) very rare wine Sex and Gender Information Value Date Recorded Sex Assigned at Not on file 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 Gender Identity Male 01/29/2021 1:19 PM CDT Sexual Orientation Not on file documented as of this encounter Plan of Treatment Not on file documented as of this encounter Visit Diagnoses Not on filedocumented in this encounter Care Teams Heel Sorter Relationship Specialty Start Date End Date Giuseppe Kulkarni MD PCP - General Family Medicine 03/20/20 10/09/21 Kaiden Marshall DO [address] [place] [address] PCP - General Family Medicine 10/10/21 Timbo Cardoso MD Consulting Physician Neurology 10/18/20 Mike Ledezma MD PhD [address] [place] [address] Radiation Oncologist Radiation Oncology 02/21/21 Esdras Conway MD [address] [place] [address] Referring Physician Urology 02/21/21 04/20/24 Edelmira Alexandre NP [address] [place] [address] Registered Nurse Family Medicine 09/08/23 Jonelle Deluna MD [address] [facility] [phone] [place] [address] Surgeon Colon and Rectal Surgery 09/29/23 Gilmer Menezes MD [address] [facility] [phone] [place] [address] Medical Oncologist/Retail Team Member Medical Oncology 11/24/23 12/21/24 Danielle Marroquin NP [address] [place] [id number] Nurse Practitioner Medical Oncology 12/26/24 documented as of this encounter
[2025-02-06 07:30] VITALS: BMI 30.7
[2025-02-06 07:31] VITALS: BP 105/60; PULSE 80; RESP 20; TEMP 36.1; O2SAT 99
--- NOTE | 2025-02-06 07:47 | P.OP_ITS ---
Procedure Note - Detailed Date of Procedure 02/06/25 Pre-op Diagnosis Primary Osteoarthritis Bilateral Hip, arthralgia left hip Post-op Diagnosis Same Procedure Performed Left Prognostic Femoral Articular and Obturator Articular Branch Blocks under Fluoroscopic Guidance with Contrast Control. Surgeon Keny Alejo MD Anesthesia Local Description of Procedure INFORMED CONSENT: Risks, benefits and alternatives to the procedure were discussed in detail with the patient who expressed explicit understanding and consent to proceed. Patient was informed verbally and in written form regarding the risks associated with the procedure including the low risk of serious infection, bleeding/bruising, allergic reaction, nerve injury, paralysis, procedural site pain or discomfort, worsening pain and/or mobility, failure to treat and disfigurement. The patient expressed explicit understanding and conse nt to proceed. All materials required for the procedure were available prior to procedure start. Site and side was marked prior to procedure and confirmed in the presence of the patient. PROCEDURE IN DETAIL: The patient was brought to the procedural suite and placed in the supine position. Patient was made comfortable with use of pillows under the head/shoulder, knees and ankles. Skin overlying anterior and anterolateral surface of the pelvis and thigh at the level of inguinal crease was prepared broadly with ChloraPrep applicator and draped in a sterile manner. Aseptic technique was used throughout. The hip joint of interest was identified in the AP projection and view aligned with the plane of the ipsilateral obturator foramen. Location and course of the femoral artery, vein and accompanying nerve was identified by palpation of the arterial pulse and marked with a sterile skin marker. Local anesthesia was established by infiltration with approximately 3 mL of 0.5% lidocaine via a 1-1/2 inch 27- gauge needle. A 22-gauge 5-inch quincke spinal needle was intermittently advanced in the lateral and superior direction in the AP view (avoiding the course of the femoral vessels) until the needle tip contacted the anterior surface of the medial wall of the obturator foramen. Needle was advanced superiorly until positioned just inferior to the ischial isthmus at the location of the left obturator articular branches. After negative aspiration for blood, CSF or bodily fluid, 0.5 ml of Omnipaque 300 contrast medium was injected demonstrating lack of intra-articular, intravascular dye pattern. After repeat negative aspiration, 0.5ml of 2.0% PF lidocaine was injected to effectively block the targeted peripheral nerve. Previously injected contrast was diluted by local anesthetic confirming appropriate spread. No parasthesias elicited. Patient tolerated well. Attention was then turned to the completion of the femoral articular branch block. In the AP projection, a site inferior and lateral to the ipsilateral ASIS was anesthetized by local infiltration with approximately 3 mL of 0.5% lidocaine via a 1-1/2 inch 27-gauge needle. A 22-gauge 5-inch quincke spinal needle was intermittently advanced in medial to lateral direction in the AP view until the needle tip contacted the anterior surface of the superior portion of the acetabulum 5mm superior to the intra-articular space at a point bisecting the femoral head, the approximate location of the left femoral articular branches. After negative aspiration for blood, CSF or bodily fluid, 0.5 ml of the same contrast medium was injected demonstrating lack of intra-articular, intravascular dye pattern. After repeat negative aspiration, 0.5ml of the same local anesthetic mixture was injected to effectively block the targeted peripheral nerve. Previously injected contrast was diluted by local anesthetic confirming appropriate spread. No parasthesias elicited. Patient tolerated the procedure well. Images were saved and documented in the patient chart. Patient's skin was cleansed and sterile bandage applied. The patient tolerated the procedure well. The patient was transported to the recovery area in stable condition where they were observed for an appropriate amount of time prior to discharge, without evidence of complication. Patient was instructed on the completion of a pain diary prior to discharge and instructed to bring this diary with them to their next follow up evaluation. The patient was instructed to avoid excessive activity for the next 48 hours, including frequent use of stairs. They are to monitor for fevers, chills, night sweats, erythema/swelling at the site or any other signs of infection, bleeding/bruising as well as new pain, weakness or numbness in the upper e xtremity. Should they notice these changes, they are instructed to call our office or report immediately to the nearest Emergency Department if no answer or if after posted office hours. CONTRAST WASTED: 29ml Omnipaque 300 Complications No immediate complications Condition Stable Disposition Same day [facility] Billing Surgery - Charge Forward: Surgery Billing
--- NOTE | 2025-02-06 07:47 | WPDHPUPDATE1 ---
History and Physical Update Update Date/Time: 02/06/25 07:47 History and Physical has been reviewed, including an updated exam of the patient. There are NO changes in the patient's condition. Risks, benefits, and alternatives have been discussed and questions answered. Patient agrees to proceed with procedure.
[2025-02-06 08:13] VITALS: BP 146/67; PULSE 74; RESP 15; O2SAT 99
[2025-02-06] MEDS: LIDOCAINE 1% PF INJ 5 ML VIAL INFILTRATE (08:13)
[2025-02-06] MEDS: LIDOCAINE 2% PF LOCAL INJ 5 ML VIAL INFILTRATE (08:14)
[2025-02-06 08:22] VITALS: PULSE 68; RESP 16; O2SAT 99
[2025-02-06 08:26] VITALS: BP 117/58; PULSE 70; RESP 18; O2SAT 100
== END 2025-02-06 08:42 | disposition home or self-care (01) ==
PROVIDERS: PCP Family Medicine; Visit Provider Anesthesiology Pain Medicine
PROC: (CPT 64450; principal; 2025-02-06 08:10)
DX: M16.12 Unilateral primary osteoarthritis, left hip (principal)
CPT/HCPCS: 64450 ×2; 99199